=== PATIENT | female | born 1950 | race Caucasian/White ===

== ENCOUNTER 2016-09-22 12:35 | Emergency (ER) | payer MEDICARE, OTHER ==
--- NOTE | 2016-09-22 13:23 | ED ---
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 She was found to be dyspneic with evidence of left lower lobe rhonchi. She did seem to respond somewhat to an updraft. Patient herself is a poor historian due to residual stroke effects. She seems 90 other complaints at this time however no chest pain. MD Complaint: shortness of breath - Related Data Home Medications Medication Instructions Recorded Confirmed Furosemide [Lasix] 40 mg PO DAILY 03/31/15 09/22/16 Hydrochlorothiazide [Hydrodiuril] 25 mg PO DAILY 09/22/16 09/22/16 Previous Rx's Medication Instructions Recorded Digoxin [Lanoxin] 250 mcg PO DAILY #30 tab 04/27/15 Metoprolol Tartrate [Lopressor] 25 mg PO BID #60 tab 04/27/15 Allergies Allergy/AdvReac Type Severity Reaction Status Date / Time No Known Allergies Allergy Verified 09/22/16 16:12 Review of Systems ROS Statement: Those systems with pertinent positive or pertinent negative responses have been documented in the HPI. ROS Other: All systems not noted in ROS Statement are negative. Past Medical History Past Medical History: Unable to Obtain, Atrial Fibrillation, Chest Pain / Angina , CVA/TIA, GERD/Reflux, Hyperlipidemia, Hypertension, Osteoarthritis (OA), Pneumonia Additional Past Medical History / Comment(s): POOR HISTORIAN. 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 History of Any Multi-Drug Resistant Organisms: None Reported Past Surgical History: Section, Tonsillectomy Additional Past Surgical History / Comment(s): X2 Past Anesthesia/Blood Transfusion Reactions: No Reported Reaction Past Psychological History: No Psychological Hx Reported Additional Psychological History / Comment(s): PT CURRENTLY LIVES AT [facility]- PT USES [facility] TO GET AROUND AND IS ABLE TO TRANSFER SELF TO [facility]. Smoking Status: Never smoker Past Alcohol Use History: None Reported Additional Past Alcohol Use History / Comment(s): SMOKED X 30 YEARS 1 PPD QUIT 2001 Past Drug Use History: None Reported - Past Family History Father Family Medical History: Unable to Obtain Mother Family Medical History: Unable to Obtain General Exam - General Exam Comments Initial Comments: This is a well-developed well-nourished awake alert female she is receive an updraft as exam proceeds. Limitations: physical limitation General appearance: alert, anxious, in distress Head exam: Present: atraumatic, normocephalic, normal inspection Eye exam: Present: normal appearance, PERRL, EOMI. Absent: scleral icterus, conjunctival injection, periorbital swelling ENT exam: Present: normal exam, mucous membranes moist Neck exam: Present: normal inspection. Absent: tenderness, meningismus, lymphadenopathy Respiratory exam: Present: wheezes, rhonchi, decreased breath sounds Cardiovascular Exam: Present: regular rate, normal rhythm, normal heart sounds. Absent: systolic murmur, diastolic murmur, rubs, gallop, clicks GI/Abdominal exam: Present: soft, normal bowel sounds. Absent: distended, tenderness, guarding, rebound, rigid Extremities exam: Present: normal capillary refill, pedal edema. Absent: full ROM Back exam: Present: normal inspection Neurological exam: Present: alert, oriented X3, motor sensory deficit Psychiatric exam: Present: anxious Skin exam: Present: warm, dry, intact, normal color. Absent: rash Course Vital Signs 09/22/16 13:25 Temperature 96.9 F L Pulse Rate 100 Respiratory 17 Rate Blood Pressure 96/62 O2 Sat by Pulse 100 Oximetry Medical Decision Making - Medical Decision Making The patient did require repeat updraft she still has some dyspnea. He original intention was to admit the patient I did discuss the case with Dr. Weinstein. Dr. Verdugo as that did come to the emergency department to evaluate the patient at this time she appears to be in satisfactory condition for discharge so she will be discharged with prescriptions as per Dr. Verdugo - Lab Data Result diagrams: 09/22/16 13:20 09/22/16 13:20 Lab Results 09/22/16 09/22/16 09/22/16 Range/Units 13:20 13:20 13:20 WBC 7.2 (3.8-10.6) k/uL RBC 4.54 (3.80-5.40) m/uL Hgb 14.6 (11.4-16.0) gm/dL Hct 44.3 (34.0-46.0) % MCV 97.7 (80.0-100.0) fL MCH 32.1 (25.0-35.0) pg MCHC 32.8 (31.0-37.0) g/dL RDW 13.2 (11.5-15.5) % Plt Count 171 (150-450) k/uL Neutrophils % 72 % Lymphocytes % 20 % Monocytes % 4 % Eosinophils % 1 % Basophils % 0 % Neutrophils # 5.2 (1.3-7.7) k/uL Lymphocytes # 1.5 (1.0-4.8) k/uL Monocytes # 0.3 (0-1.0) k/uL Eosinophils # 0.1 (0-0.7) k/uL Basophils # 0.0 (0-0.2) k/uL PT (9.0-12.0) sec INR (<1.1) APTT (22.0-30.0) sec Sodium 142 (137-145) mmol/L Potassium 4.3 (3.5-5.1) mmol/L Chloride 105 (98-107) mmol/L Carbon Dioxide 28 (22-30) mmol/L Anion Gap 9 mmol/L BUN 24 H (7-17) mg/dL Creatinine 0.77 (0.52-1.04) mg/dL Est GFR (MDRD) Af Amer >60 (>60 ml/min/1.73 sqM) Est GFR (MDRD) Non-Af >60 (>60 ml/min/1.73 sqM) Glucose 170 H (74-99) mg/dL Calcium 9.6 (8.4-10.2) mg/dL Magnesium 2.0 (1.6-2.3) mg/dL Total Bilirubin 0.9 (0.2-1.3) mg/dL AST 30 (14-36) U/L ALT 40 (9-52) U/L Alkaline Phosphatase 87 (38-126) U/L Total Creatine Kinase 60 (30-135) U/L CK-MB (CK-2) 1.8 (0.0-2.4) ng/mL CK-MB (CK-2) Rel Index 3.0 Troponin I <0.012 (0.000-0.034) ng/mL NT-Pro-B Natriuret Pep pg/mL Total Protein 7.3 (6.3-8.2) g/dL Albumin 4.1 (3.5-5.0) g/dL 09/22/16 09/22/16 Range/Units 13:20 13:20 WBC (3.8-10.6) k/uL RBC (3.80-5.40) m/uL Hgb (11.4-16.0) gm/dL Hct (34.0-46.0) % MCV (80.0-100.0) fL MCH (25.0-35.0) pg MCHC (31.0-37.0) g/dL RDW (11.5-15.5) % Plt Count (150-450) k/uL Neutrophils % % Lymphocytes % % Monocytes % % Eosinophils % % Basophils % % Neutrophils # (1.3-7.7) k/uL Lymphocytes # (1.0-4.8) k/uL Monocytes # (0-1.0) k/uL Eosinophils # (0-0.7) k/uL Basophils # (0-0.2) k/uL PT 11.4 (9.0-12.0) sec INR 1.1 (<1.1) APTT 24.3 (22.0-30.0) sec Sodium (137-145) mmol/L Potassium (3.5-5.1) mmol/L Chloride (98-107) mmol/L Carbon Dioxide (22-30) mmol/L Anion Gap mmol/L BUN (7-17) mg/dL Creatinine (0.52-1.04) mg/dL Est GFR (MDRD) Af Amer (>60 ml/min/1.73 sqM) Est GFR (MDRD) Non-Af (>60 ml/min/1.73 sqM) Glucose (74-99) mg/dL Calcium (8.4-10.2) mg/dL Magnesium (1.6-2.3) mg/dL Total Bilirubin (0.2-1.3) mg/dL AST (14-36) U/L ALT (9-52) U/L Alkaline Phosphatase (38-126) U/L Total Creatine Kinase (30-135) U/L CK-MB (CK-2) (0.0-2.4) ng/mL CK-MB (CK-2) Rel Index Troponin I (0.000-0.034) ng/mL NT-Pro-B Natriuret Pep 1370 pg/mL Total Protein (6.3-8.2) g/dL Albumin (3.5-5.0) g/dL - EKG Data -: EKG Interpreted by Nc EKG shows normal: sinus rhythm (EKG shows a sinus rhythm with short OH interval with her rate was 103 OH interval 86 QRS of 100 mL at 290/379 evidence of incomplete right bundle-branch block nonspecific ST configuration.) - Radiology Data Radiology results: report reviewed (I did review the imaging and reports. No definite acute findings), image reviewed Disposition Clinical Impression: Acute bronchospasm, Dehydration Disposition: HOME SELF-CARE Condition: Good Instructions: Bronchospasm (ED), Dehydration (ED) Referrals: uD Lancaster MD [Primary Care Provider] - 1-2 days
[2016-09-22 13:44] LABS: Basophils % (A) 0 %; CHCM 32.9; Eosinophils # (A) 0.1 k/uL (0-0.7); Eosinophils % (A) 1 %; HCT 44.3 % (34.0-46.0); HDW 2.79; HGB 14.6 gm/dL (11.4-16.0); Luc # (Auto) 0.15; Luc % (Auto) 2; Lymphocytes # (A) 1.5 k/uL (1.0-4.8); Lymphocytes % (A) 20 %; MCH 32.1 pg (25.0-35.0); MCHC 32.8 g/dL (31.0-37.0); MCV 97.7 fL (80.0-100.0); Monocytes # (A) 0.3 k/uL (0-1.0); Monocytes % (A) 4 %; Neutrophils # (A) 5.2 k/uL (1.3-7.7); Neutrophils % (A) 72 %; RBC 4.54 m/uL (3.80-5.40); RDW 13.2 % (11.5-15.5); WBC 7.2 k/uL (3.8-10.6); WBC (Perox) 7.12
[2016-09-22 13:55] LABS: INR 1.1 (<1.1); Partial Thromboplastin Time 24.3 sec (22.0-30.0); Prothrombin Time 11.4 sec (9.0-12.0)
[2016-09-22 14:01] LABS: ALT 40 U/L (9-52); AST 30 U/L (14-36); Alkaline Phosphatase 87 U/L (38-126); Anion Gap 9 mmol/L; Blood Urea Nitrogen 24 mg/dL (7-17); Calcium 9.6 mg/dL (8.4-10.2); Carbon Dioxide 28 mmol/L (22-30); Chloride 105 mmol/L (98-107); Creatine Kinase 60 U/L (30-135); Glucose 170 mg/dL (74-99); Non-African American GFR(MDRD) >60 (>60 ml/min/1.73 sqM); Potassium 4.3 mmol/L (3.5-5.1); Sodium 142 mmol/L (137-145); Total Bilirubin 0.9 mg/dL (0.2-1.3); Total Protein 7.3 g/dL (6.3-8.2)
--- NOTE | 2016-09-22 14:13 | XR ---
EXAMINATION TYPE: XR chest 2V DATE OF EXAM: 09/22/2016 COMPARISON: July 27, 2015 HISTORY: Shortness of breath TECHNIQUE: Frontal and lateral views of the chest are obtained. FINDINGS: Scattered senescent parenchymal changes noted. Hyperinflation compatible with COPD. No evidence for infiltrate. No evidence for atelectasis. There is cardiomegaly with chronic pulmonary venous congestion. No evidence for overt failure. Mediastinal structures are stable and grossly unremarkable. No evidence for hilar prominence. Degenerative changes dorsal spine. IMPRESSION: 1. There is cardiomegaly with chronic pulmonary venous congestion. No evidence for overt failure.
[2016-09-22 14:15] LABS: Creatine Kinase MB 1.8 ng/mL (0.0-2.4); Troponin I <0.012 ng/mL (0.000-0.034)
[2016-09-22] MEDS ORDERED: SODIUM CHLORIDE 0.9% 500 ML IV STA (15:00)
[2016-09-22 16:58] VITALS: BP 93/53; PULSE 102; RESP 18; TEMP 97.4
--- NOTE | 2016-09-22 21:15 | HP ---
H&P AND DISCHARGE SUMMARY (ER CONSULT) DATE OF ADMISSION: Patient is a very pleasant 66-year-old female who came in with complaints of COPD and bronchospasm. Patient was given breathing treatments. When I evaluated the patient, she is saturating well at 100%. I will ambulate the patient. If patient is saturating okay, patient can be discharged from my perspective. Patient does have congestive heart failure history. Patient was complaining of some minimal cough. Patient was given breathing treatments with significant improvement in her symptoms. I will go ahead and give her Symbicort, albuterol, systemic steroids, and patient can follow up with Dr. Du Lancaster as an outpatient. Patient does have a history of CHF, ejection fraction of 35%. Patient does have some pulmonary edema, which does not appear to be increased compared to the previous chest x-rays. No evidence of overt congestive heart failure symptoms. Patient is on Lasix, which she can continue. Patient is on a high dose of digoxin. Digoxin levels need to be obtained as an outpatient. Patient's BNP is 13,078; it was 2500 during her last hospitalization. ROS: All other systems were reviewed and were negative. Home medications include: 1. Lasix. 2. Hydrochlorothiazide. 3. Digoxin. 4. Metoprolol. Past medical history is significant for: 1. Congestive heart failure, ejection fraction of around 35%. 2. Atrial fibrillation. 3. Gastroesophageal reflux disease. 4. Hyperlipidemia. 5. Hypertension. 6. Osteoarthritis. 7. Pneumonia in the past. 8. section. 9. Tonsillectomy. 10. CVA in the past with some residual weakness. SOCIAL HISTORY: Used to smoke 1 pack per day; quit smoking in 2001. Denied any alcohol abuse or any drug abuse. FAMILY HISTORY: Not available at this point of time. PHYSICAL EXAMINATION: VITAL SIGNS: Temperature 96.9, pulse of 100, respiratory rate of 17, blood pressure 96/62. Saturating at 100% on 2 L of oxygen by nasal cannula. GENERAL: The patient is alert and oriented x3, not in any acute distress. Well developed, well nourished. HEENT: Pupils are round and equally reacting to light. EOMI. No scleral icterus. No conjunctival pallor. Normocephalic, atraumatic. No pharyngeal erythema. No thyromegaly. CARDIOVASCULAR: S1 and S2 present. No murmurs, rubs, or gallops. PULMONARY: Chest is clear to auscultation, no wheezing or crackles. ABDOMEN: Soft, nontender, nondistended, normoactive bowel sounds. No palpable organomegaly. MUSCULOSKELETAL: No joint swelling or deformity. EXTREMITIES: No cyanosis, clubbing, or pedal edema. NEUROLOGICAL: Gross neurological examination did not reveal any focal deficits. SKIN: No rashes. LABORATORY DATA: CBC, CMP are essentially within normal limits. Chest x-ray did not show any pneumonic process. ASSESSMENT AND PLAN: 1. Shortness of breath, probably related to chronic obstructive pulmonary disease exacerbation, improved at this point of time. Patient is saturating well. Patient in my opinion can be discharged and will not need any hospitalization. 2. Atrial fibrillation. Patient is at present rate-controlled. 3. Hypertension. 4. Congestive heart failure with chronic systolic dysfunction. I do not believe patient is in exacerbation at this point of time. Patient does not have any JVD or S3 or lower limb swelling. Patient has a history of DVT in the past, history of cerebrovascular accident with some residual weakness. 5. Moderate pulmonary hypertension with moderate to severe tricuspid regurgitation. Patient will follow up with PCP Dr. Du Lancaster in 3 to 7 days. Discharge medications as mentioned above. Patient in my opinion can be discharged. This dictation is both H&P and discharge summary. Consider this as an ER consult. JANNY
== END 2016-09-22 16:58 | disposition home or self-care (01) ==
LOC: EC 12:35
DX: J98.01 Acute bronchospasm (principal); E86.0 Dehydration; I48.91 Unspecified atrial fibrillation; I10 Essential (primary) hypertension; Z86.73 Personal history of transient ischemic attack (TIA), and cerebral infarction without residual deficits; Z79.899 Other long term (current) drug therapy
CPT/HCPCS: 36415; 71020; 80053; 82550; 82553; 83735; 83880; 84484; 85025; 85610; 85730; 93005; 96360; 99285

== ENCOUNTER → 2017-01-10 | Outpatient (CLI) | payer MEDICARE ==
--- NOTE | 2017-01-10 10:53 | XR ---
EXAMINATION TYPE: XR chest 2V DATE OF EXAM: 01/10/2017 COMPARISON: Chest x-ray September 22, 2016 HISTORY: CHF per order. TECHNIQUE: Frontal and lateral views of the chest are obtained. FINDINGS: There is no focal air space opacity, pleural effusion, or pneumothorax seen. The cardiac silhouette size remains enlarged. No significant new central vascular congestion is present. The oss eous structures are intact. IMPRESSION: Cardiomegaly without acute pulmonary process. No significant change from prior.
== END | disposition home or self-care (01) ==
LOC: RADXRMAIN 10:10
PROVIDERS: ATTEND Physician Assistant
DX: I51.7 Cardiomegaly (principal); I50.32 Chronic diastolic (congestive) heart failure
CPT/HCPCS: 71020

== ENCOUNTER → 2017-01-22 | Outpatient (CLI) | payer MEDICARE ==
--- NOTE | 2017-01-23 10:14 | ECHOF ---
Referral Reason:I50.32 Diastolic heart failure MEASUREMENTS -------- HEIGHT: 157.5 cm WEIGHT: 85.7 kg BP: 144/82 RVIDd: 3.2 cm (< 3.3) IVSd: 1.2 cm (0.6 - 1.1) LVIDd: 5.3 cm (3.9 - 5.3) LVPWd: 1.4 cm (0.6 - 1.1) IVSs: 1.7 cm LVIDs: 4.2 cm LVPWs: 2.1 cm LA Diam: 4.3 cm (2.7 - 3.8) LAESV Index (A-L): 45.97 ml/m Ao Diam: 3.3 cm (2.0 - 3.7) AV Cusp: 2.0 cm (1.5 - 2.6) MV EXCURSION: 16.963 mm (> 18.000) MV EF SLOPE: 7 mm/s (70 - 150) EPSS: 1.3 cm MV E Wei: 1.60 m/s MV DecT: 398 ms MV A Wei: 1.39 m/s MV E/A Ratio: 1.15 RAP: 15.00 mmHg RVSP: 48.38 mmHg FINDINGS -------- Sinus rhythm. This was a technically adequate study. The left ventricular size is normal. There is moderate concentric left ventricular hypertrophy. Overall left ventricular systolic function is moderately impaired with, an EF between 35 - 40 %. The right ventricle is normal in size. LA is severely dilated >40 ml/m2 The right atrium was not well visualized. There is mild aortic valve sclerosis. The mitral valve leaflets are moderate to severely thickened. Moderate mitral annular calcification present. There is trace to mild mitral regurgitation. The peak and mean MV gradients are 12.65mmHg 7.46mmHg as measured by doppler. [id number] mitral stenosis. Moderate to severe tricuspid regurgitation present. There is moderate pulmonary hypertension. The right ventricular systolic pressure, as measured by Doppler, is 48.38mmHg. Trace/mild (physiologic) pulmonic regurgitation. The aortic root size is normal. The inferior vena cava is dilated with no significant inspiratory collapse which is consistent estimated right atrial pressure of >15 mmHg. There is no pericardial effusion. CONCLUSIONS -------- 1. Sinus rhythm. 2. The mitral valve leaflets are moderate to severely thickened. 3. Moderate mitral annular calcification present. 4. There is trace to mild mitral regurgitation. 5. The peak and mean MV gradients are 12.65mmHg 7.46mmHg as measured by doppler. 6. [id number] mitral stenosis. 7. Moderate to severe tricuspid regurgitation present. 8. There is moderate pulmonary hypertension. 9. The right ventricular systolic pressure, as measured by Doppler, is 48.38mmHg. 10. Trace/mild (physiologic) pulmonic regurgitation. 11. The aortic root size is normal. 12. This was a technically adequate study. 13. The inferior vena cava is dilated with no significant inspiratory collapse which is consistent estimated right atrial pressure of >20 mmHg. 14. There is no pericardial effusion. 15. The left ventricular size is normal. 16. There is moderate concentric left ventricular hypertrophy. 17. Overall left ventricular systolic function is moderately impaired with, an EF between 35 - 40 %. 18. The right ventricle is normal in size. 19. LA is severely dilated >40 ml/m2 20. The right atrium was not well visualized. 21. There is mild aortic valve sclerosis. CLIENT HR MANAGER: Elen Jenkins RDCS
== END | disposition home or self-care (01) ==
LOC: RADECHMAIN 13:11
PROVIDERS: ATTEND Family Medicine
DX: I08.3 Combined rheumatic disorders of mitral, aortic and tricuspid valves (principal); I27.20 Pulmonary hypertension, unspecified
CPT/HCPCS: 93306

== ENCOUNTER 2017-05-01 04:40 | Inpatient (IN) | payer MEDICARE ==
[2017-05-01] MEDS ORDERED: MORPHINE SULFATE 5 MG/ML SYRINGE IV STA (05:12)
[2017-05-01 05:27] LABS: Basophils % (A) 0 %; Eosinophils % (A) 0 %; HCT 50.8 % (34.0-46.0); HGB 16.5 gm/dL (11.4-16.0); Lymphocytes # (A) 0.9 k/uL (1.0-4.8); Lymphocytes % (A) 7 %; MCH 31.1 pg (25.0-35.0); MCHC 32.6 g/dL (31.0-37.0); MCV 95.7 fL (80.0-100.0); Mean Platelet Volume 8.6; Monocytes # (A) 0.5 k/uL (0-1.0); Monocytes % (A) 4 %; Neutrophils % (A) 88 %; Platelet Count 263 k/uL (150-450); RBC 5.31 m/uL (3.80-5.40); RDW 14.7 % (11.5-15.5); WBC 13.6 k/uL (3.8-10.6)
[2017-05-01] MEDS ORDERED: ONDANSETRON 4 MG/2 ML VIAL IVP STA (05:37)
[2017-05-01 05:42] LABS: ALT 49 U/L (9-52); AST 44 U/L (14-36); Albumin 4.7 g/dL (3.5-5.0); Alkaline Phosphatase 108 U/L (38-126); Amylase 66 U/L (30-110); Anion Gap 14 mmol/L; Blood Urea Nitrogen 25 mg/dL (7-17); Calcium 11.1 mg/dL (8.4-10.2); Carbon Dioxide 28 mmol/L (22-30); Chloride 100 mmol/L (98-107); Glucose 164 mg/dL (74-99); Lipase 305 U/L (23-300); Potassium 4.4 mmol/L (3.5-5.1); Sodium 142 mmol/L (137-145); Total Bilirubin 1.2 mg/dL (0.2-1.3); Total Protein 8.5 g/dL (6.3-8.2)
--- NOTE | 2017-05-01 06:33 | CT ---
EXAM: CT Abdomen and Pelvis Without Intravenous Contrast CLINICAL HISTORY: Abdominal pain. Nausea and vomiting after eating pizza before bed. TECHNIQUE: Axial computed tomography images of the abdomen and pelvis without intravenous contrast. Coronal and sagittal reformatted images were created and reviewed. CTDI is 31.60 mGy and DLP is 1638.80 mGy-cm. This CT exam was performed using one or more of the following dose reduction techniques: automated exposure control, adjustment of the mA and/or kV according to patient size, and/or use of iterative reconstruction technique. COMPARISON: CT dated 07/26/2015. FINDINGS: Lower thorax: Mild cardiomegaly. No acute findings. ABDOMEN: Liver: Unremarkable on noncontrast CT. Gallbladder and bile ducts: Unremarkable. No radiopaque calculi. No biliary ductal dilation. Pancreas: Unremarkable. No ductal dilation. No adjacent inflammatory changes. Spleen: Unremarkable. No splenomegaly. Adrenals: Indeterminate left adrenal nodule measuring 2 cm, stable compared to prior CT. Unremarkable right adrenal gland. Kidneys and ureters: Probable bilateral renal cysts and right renal calcifications. No hydronephrosis or ureteral calculus. Stomach and bowel: Small umbilical hernia containing short segment of small bowel with dilation of small bowel proximal to the hernia and decompression of small bowel distal to the hernia consistent with small bowel obstruction due to hernia. No significant fluid within the hernia although suspect mild stranding. No bowel wall thickening, pneumatosis or free air. Appendix: No evidence of acute appendicitis. PELVIS: Bladder: Bladder is decompressed which limits evaluation. Reproductive: Fibroid uterus. Ovaries not seen. ABDOMEN and PELVIS: Intraperitoneal space: No free air. No significant fluid collection. Bones/joints: No acute fracture. No dislocation. Soft tissues: Small umbilical hernia as described above. Vasculature: Atherosclerotic vascular disease. No abdominal aortic aneurysm. Lymph nodes: Subcentimeter retroperitoneal lymph nodes. No enlarged lymph nodes. IMPRESSION: 1. Small umbilical hernia containing short segment of small bowel with dilation of small bowel proximal to the hernia and decompression of small bowel distal to the hernia consistent with small bowel obstruction due to hernia. No bowel wall thickening, pneumatosis or free air. No fluid within the hernia although suspect mild stranding. Correlate clinically for incarceration/strangulation. 2. Indeterminate left adrenal nodule measuring 2 cm, stable compared to prior CT. 3. Fibroid uterus. 4. Mild cardiomegaly.
[2017-05-01 06:46] LABS: Appearance,Urine Cloudy (Clear); Bacteria,Urine Many /hpf; Bilirubin,Urine 1+ (Negative); Blood,Urine Small (Negative); Color,Urine Yellow; Glucose,Urine (UA) Negative (Negative); Ketones,Urine Negative (Negative); Leukocyte Esterase,Urine Moderate (Negative); Mucus,Urine Rare /hpf; Nitrite,Urine Negative (Negative); Protein,Urine 1+ (Negative); RBC,Urine 16 /hpf (0-5); Specific Gravity,Urine 1.022 (1.001-1.035); Squamous Epithelial Cell,Urine 14 /hpf (0-4); WBC,Urine 141 /hpf (0-5)
--- NOTE | 2017-05-01 07:45 | ED ---
Abdominal Pain HPI - General Chief Complaint: Nausea/Vomiting/Diarrhea Stated Complaint: abd pain,NV Time Seen by Provider: 05/01/17 04:47 Source: patient, family, EMS Mode of arrival: EMS Limitations: language barrier (Expressive aphasia due to stroke) - History of Present Illness Initial Comments: This patient is a 67-year-old woman who presents with abdominal pain, nausea and vomiting, that started tonight. History is limited as the patient has expressive aphasia due to stroke many years ago. She does have a friend present who helps to give the history. The patient was playing cards a number of hours ago when she developed some periumbilical and left lower quadrant pain. She is not able to characterize it well on her own but when questioned she agrees it is crampy. The pain is severe. Pain is constant and she has not discovered any worsening or relieving factors. She also has had a couple of episodes of vomiting and does have nausea. She did not note any blood. Patient has not noted change in bowel movements it seems that her last bowel movement was yesterday and unremarkable. No change in urination. No flank pain. She has not noted fever. MD Complaint: abdominal pain, other (Nausea and vomiting) -: hour(s) Location: periumbilical, LLQ Radiation: none Migration to: no migration Severity: severe Quality: cramping Consistency: constant Improves With: nothing Worsens With: nothing Associated Symptoms: nausea, vomiting - Related Data Home Medications Medication Instructions Recorded Confirmed Furosemide [Lasix] 40 mg PO DAILY 03/31/15 05/01/17 Albuterol Inhaler [Ventolin Hfa 1 - 2 puff INHALATION RT-Q6H PRN 05/01/17 Inhaler] Budesonide-Formot 160-4.5 Mcg 2 puff INHALATION RT-BID 05/01/17 05/01/17 [Symbicort 160-4.5 Mcg Inhaler] Tiotropium [place] [Spiriva] 1 cap INHALATION RT-DAILY 05/01/17 05/01/17 Previous Rx's Medication Instructions Recorded Digoxin [Lanoxin] 250 mcg PO DAILY #30 tab 04/27/15 Metoprolol Tartrate [Lopressor] 25 mg PO BID #60 tab 04/27/15 Lisinopril [Zestril] 5 mg PO DAILY #30 tab 05/07/17 Omeprazole [PriLOSEC] 20 mg PO AC-BRKFST #15 cap 05/07/17 Warfarin [Coumadin] 3 mg PO DAILY@1800 #30 tab 05/07/17 traMADol HCl [Ultram] 100 mg PO QID PRN #30 tab 05/07/17 Allergies Allergy/AdvReac Type Severity Reaction Status Date / Time No Known Allergies Allergy Verified 05/01/17 07:09 Review of Systems ROS Statement: Those systems with pertinent positive or pertinent negative responses have been documented in the HPI. ROS Other: All systems not noted in ROS Statement are negative. Limitations: ROS unobtainable due to patients medical condition (Expressive aphasia) Constitutional: Denies: fever Respiratory: Denies: cough, dyspnea Cardiovascular: Denies: chest pain, edema Gastrointestinal: Reports: abdominal pain, nausea, vomiting. Denies: diarrhea, constipation, melena, hematochezia Genitourinary: Denies: dysuria, hematuria Musculoskeletal: Denies: back pain Neurological: Denies: headache Past Medical History Past Medical History: Unable to Obtain, Atrial Fibrillation, Chest Pain / Angina , CVA/TIA, GERD/Reflux, Hyperlipidemia, Hypertension, Osteoarthritis (OA), Pneumonia Additional Past Medical History / Comment(s): POOR HISTORIAN. 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 History of Any Multi-Drug Resistant Organisms: None Reported Past Surgical History: Section, Tonsillectomy Additional Past Surgical History / Comment(s): X2 Past Anesthesia/Blood Transfusion Reactions: No Reported Reaction Past Psychological History: No Psychological Hx Reported Smoking Status: Never smoker Past Alcohol Use History: None Reported Past Drug Use History: None Reported - Past Family History Father Family Medical History: Unable to Obtain Mother Family Medical History: Unable to Obtain General Exam Limitations: no limitations General appearance: alert, in no apparent distress, obese Head exam: Present: atraumatic, normocephalic Eye exam: Present: normal appearance. Absent: scleral icterus, conjunctival injection Respiratory exam: Present: normal lung sounds bilaterally. Absent: respiratory distress, wheezes, rales, rhonchi, stridor Cardiovascular Exam: Present: regular rate, irregular rhythm, normal heart sounds, other (Dorsalis pedis pulses are palpable.). Absent: systolic murmur, diastolic murmur GI/Abdominal exam: Present: tenderness, diminished bowel sounds. Absent: distended, guarding, rebound, rigid, mass, pulsatile mass, hernia Extremities exam: Present: normal inspection, normal capillary refill, pedal edema (Right lower extremity, which the patient states is chronic for her. There is also some mild duskiness of the foot that her associate says it looks actually pretty good for her.). Absent: tenderness, calf tenderness Back exam: Present: normal inspection. Absent: CVA tenderness (R), CVA tenderness (L) Neurological exam: Present: alert, motor sensory deficit (Patient has right sided hemiplegia which is chronic) Skin exam: Present: warm, dry, intact, other (Patient has some duskiness and the right foot is cool which they state is chronic. There is a palpable dorsalis pedis pulse.). Absent: rash Course Vital Signs 05/01/17 05/01/17 05/01/17 04:41 06:22 09:46 Temperature 97.6 F 98.0 F Pulse Rate 64 65 91 Respiratory 18 18 18 Rate Blood Pressure 150/70 135/82 128/78 O2 Sat by Pulse 97 98 98 Oximetry 05/01/17 05/01/17 05/01/17 11:08 12:22 12:32 Temperature 97.3 F L 97.4 F L Pulse Rate 96 89 87 Respiratory 18 18 18 Rate Blood Pressure 124/67 140/99 166/96 O2 Sat by Pulse 98 96 97 Oximetry Medical Decision Making - Medical Decision Making Patient is 67-year-old woman with pain and some tenderness on the abdominal exam. History is limited somewhat by a fascia following her stroke a number of years ago. She does have what appears to be incarcerated umbilical hernia. Case is discussed with Dr. Mulligan, who did see the patient in the emergency department. Patient admitted under Dr. Du Mccray her primary physician, and the case is discussed with him as well. - Lab Data Result diagrams: 05/06/17 07:23 05/06/17 07:23 Lab Results 05/01/17 05/01/17 05/01/17 Range/Units 04:40 04:40 04:40 WBC 13.6 H (3.8-10.6) k/uL RBC 5.31 (3.80-5.40) m/uL Hgb 16.5 H (11.4-16.0) gm/dL Hct 50.8 H (34.0-46.0) % MCV 95.7 (80.0-100.0) fL MCH 31.1 (25.0-35.0) pg MCHC 32.6 (31.0-37.0) g/dL RDW 14.7 (11.5-15.5) % Plt Count 263 (150-450) k/uL Neutrophils % 88 % Lymphocytes % 7 % Monocytes % 4 % Eosinophils % 0 % Basophils % 0 % Neutrophils # 12.0 H (1.3-7.7) k/uL Lymphocytes # 0.9 L (1.0-4.8) k/uL Monocytes # 0.5 (0-1.0) k/uL Eosinophils # 0.0 (0-0.7) k/uL Basophils # 0.0 (0-0.2) k/uL PT 17.1 H (9.0-12.0) sec INR 1.9 H (<1.2) APTT 27.7 (22.0-30.0) sec Sodium 142 (137-145) mmol/L Potassium 4.4 (3.5-5.1) mmol/L Chloride 100 (98-107) mmol/L Carbon Dioxide 28 (22-30) mmol/L Anion Gap 14 mmol/L BUN 25 H (7-17) mg/dL Creatinine 0.87 (0.52-1.04) mg/dL Est GFR (MDRD) Af Amer >60 (>60 ml/min/1.73 sqM) Est GFR (MDRD) Non-Af >60 (>60 ml/min/1.73 sqM) Glucose 164 H (74-99) mg/dL Calcium 11.1 H (8.4-10.2) mg/dL Total Bilirubin 1.2 (0.2-1.3) mg/dL AST 44 H (14-36) U/L ALT 49 (9-52) U/L Alkaline Phosphatase 108 (38-126) U/L Total Protein 8.5 H (6.3-8.2) g/dL Albumin 4.7 (3.5-5.0) g/dL Amylase 66 (30-110) U/L Lipase 305 H (23-300) U/L Urine Color Urine Appearance (Clear) Urine pH (5.0-8.0) Ur Specific [place] (1.001-1.035) Urine Protein (Negative) Urine Glucose (UA) (Negative) Urine Ketones (Negative) Urine Blood (Negative) Urine Nitrite (Negative) Urine Bilirubin (Negative) Urine Urobilinogen (<2.0) mg/dL Ur Leukocyte Esterase (Negative) Urine RBC (0-5) /hpf Urine WBC (0-5) /hpf Ur Squamous Epith Cells (0-4) /hpf Urine Bacteria (None) /hpf Urine Mucus (None) /hpf 05/01/17 Range/Units 06:20 WBC (3.8-10.6) k/uL RBC (3.80-5.40) m/uL Hgb (11.4-16.0) gm/dL Hct (34.0-46.0) % MCV (80.0-100.0) fL MCH (25.0-35.0) pg MCHC (31.0-37.0) g/dL RDW (11.5-15.5) % Plt Count (150-450) k/uL Neutrophils % % Lymphocytes % % Monocytes % % Eosinophils % % Basophils % % Neutrophils # (1.3-7.7) k/uL Lymphocytes # (1.0-4.8) k/uL Monocytes # (0-1.0) k/uL Eosinophils # (0-0.7) k/uL Basophils # (0-0.2) k/uL PT (9.0-12.0) sec INR (<1.2) APTT (22.0-30.0) sec Sodium (137-145) mmol/L Potassium (3.5-5.1) mmol/L Chloride (98-107) mmol/L Carbon Dioxide (22-30) mmol/L Anion Gap mmol/L BUN (7-17) mg/dL Creatinine (0.52-1.04) mg/dL Est GFR (MDRD) Af Amer (>60 ml/min/1.73 sqM) Est GFR (MDRD) Non-Af (>60 ml/min/1.73 sqM) Glucose (74-99) mg/dL Calcium (8.4-10.2) mg/dL Total Bilirubin (0.2-1.3) mg/dL AST (14-36) U/L ALT (9-52) U/L Alkaline Phosphatase (38-126) U/L Total Protein (6.3-8.2) g/dL Albumin (3.5-5.0) g/dL Amylase (30-110) U/L Lipase (23-300) U/L Urine Color Yellow Urine Appearance Cloudy H (Clear) Urine pH 5.0 (5.0-8.0) Ur Specific [place] 1.022 (1.001-1.035) Urine Protein 1+ H (Negative) Urine Glucose (UA) Negative (Negative) Urine Ketones Negative (Negative) Urine Blood Small H (Negative) Urine Nitrite Negative (Negative) Urine Bilirubin 1+ H (Negative) Urine Urobilinogen 2.0 (<2.0) mg/dL Ur Leukocyte Esterase Moderate H (Negative) Urine RBC 16 H (0-5) /hpf Urine WBC 141 H (0-5) /hpf Ur Squamous Epith Cells 14 H (0-4) /hpf Urine Bacteria Many H (None) /hpf Urine Mucus Rare H (None) /hpf Disposition Clinical Impression: Umbilical hernia with obstruction but no gangrene, Abdominal pain Disposition: ADMITTED IP TO THIS [facility] Condition: Serious
[2017-05-01] MEDS ORDERED: ONDANSETRON 4 MG/2 ML VIAL IVP PRN ×2 (08:05→17:27)
[2017-05-01] MEDS ORDERED: NALOXONE 0.4 MG/ML 1 ML VIAL IV PRN (08:05)
[2017-05-01] MEDS ORDERED: PHYTONADIONE 1 MG in SODIUM CHLORIDE 0.9% 50 ML IVPB STA (08:09)
[2017-05-01 08:11] LABS: INR 1.9 (<1.2); Partial Thromboplastin Time 27.7 sec (22.0-30.0); Prothrombin Time 17.1 sec (9.0-12.0)
[2017-05-01] MEDS ORDERED: PIPERACILLIN-TAZOBACTAM 3.375 GM in DEXTROSE/WATER 1 50ML.BAG IVPB STA (08:54)
--- NOTE | 2017-05-01 09:08 | P.GSCN ---
History of Present Illness Consult date: 05/01/17 Reason for Consult: Incarcerated umbilical hernia Requesting physician: Marcos Gonsalez History of present illness: 67 years old female presented with one-day history of periumbilical abdominal pain, severe associated with multiple episodes of nausea and vomiting. Patient has history of stroke with significant residual weakness of the right side of the body and expressive aphasia. She has restricted mobility and uses a power chair History obtained from review of charts and speaking to patient's neighbor. Denies any fever, chills or rigors. Last bowel movement was yesterday. She is on again and INR is 1.9 Review of Systems As stated in history of present illness. Limited history secondary to express aphasia Past Medical History Past Medical History: Unable to Obtain, Atrial Fibrillation, Chest Pain / Angina , CVA/TIA, GERD/Reflux, Hyperlipidemia, Hypertension, Osteoarthritis (OA), Pneumonia Additional Past Medical History / Comment(s): POOR HISTORIAN. 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 History of Any Multi-Drug Resistant Organisms: None Reported Past Surgical History: Section, Tonsillectomy Additional Past Surgical History / Comment(s): X2 Past Anesthesia/Blood Transfusion Reactions: No Reported Reaction Past Psychological History: No Psychological Hx Reported Smoking Status: Never smoker Past Alcohol Use History: None Reported Past Drug Use History: None Reported - Past Family History Father Family Medical History: Unable to Obtain Mother Family Medical History: Unable to Obtain Medications and Allergies Home Medications Medication Instructions Recorded Confirmed Type Furosemide [Lasix] 40 mg PO DAILY 03/31/15 05/01/17 History Digoxin [Lanoxin] 250 mcg PO DAILY #30 tab 04/27/15 05/01/17 Rx Metoprolol Tartrate [Lopressor] 25 mg PO BID #60 tab 04/27/15 05/01/17 Rx Albuterol Inhaler [Ventolin Hfa 1 - 2 puff INHALATION RT-Q6H PRN 05/01/17 History Inhaler] Budesonide-Formot 160-4.5 Mcg 2 puff INHALATION RT-BID 05/01/17 05/01/17 History [Symbicort 160-4.5 Mcg Inhaler] Tiotropium [place] [Spiriva] 1 cap INHALATION RT-DAILY 05/01/17 05/01/17 History Warfarin [Coumadin] 2.5 mg PO MOWEFR 05/01/17 05/01/17 History Warfarin [Coumadin] 5 mg PO SUTUTHSA 05/01/17 05/01/17 History Allergies Allergy/AdvReac Type Severity Reaction Status Date / Time No Known Allergies Allergy Verified 05/01/17 07:09 Surgical - Exam Vital Signs Temp Pulse Resp BP Pulse Ox 97.6 F 64 18 150/70 97 05/01/17 04:41 05/01/17 04:41 05/01/17 04:41 05/01/17 04:41 05/01/17 04:41 General: Patient is alert and cooperative with exam. She is not in acute distress. Obese built HEENT: No pallor, no icterus, Chest: Bilateral equal breath sounds present. No wheezes, no crackles. Cardiovascular: Regular rate and rhythm. Abdomen: Incarcerated umbilical hernia which is not reducible with overlying skin changes. No skin cellulitis Integumentary: Right lower extremity chronic venous dermatitis. No active ulcers or discharge. Neurologic: Significant weakness in the right side of the body and expressive aphasia Results - Labs 05/01/17 04:40 05/01/17 04:40 Abnormal Lab Results - Last 24 Hours (Table) 05/01/17 05/01/17 05/01/17 Range/Units 04:40 04:40 04:40 WBC 13.6 H (3.8-10.6) k/uL Hgb 16.5 H (11.4-16.0) gm/dL Hct 50.8 H (34.0-46.0) % Neutrophils # 12.0 H (1.3-7.7) k/uL Lymphocytes # 0.9 L (1.0-4.8) k/uL PT 17.1 H (9.0-12.0) sec INR 1.9 H (<1.2) BUN 25 H (7-17) mg/dL Glucose 164 H (74-99) mg/dL Calcium 11.1 H (8.4-10.2) mg/dL AST 44 H (14-36) U/L Total Protein 8.5 H (6.3-8.2) g/dL Lipase 305 H (23-300) U/L Urine Appearance (Clear) Urine Protein (Negative) Urine Blood (Negative) Urine Bilirubin (Negative) Ur Leukocyte Esterase (Negative) Urine RBC (0-5) /hpf Urine WBC (0-5) /hpf Ur Squamous Epith Cells (0-4) /hpf Urine Bacteria (None) /hpf Urine Mucus (None) /hpf 05/01/17 Range/Units 06:20 WBC (3.8-10.6) k/uL Hgb (11.4-16.0) gm/dL Hct (34.0-46.0) % Neutrophils # (1.3-7.7) k/uL Lymphocytes # (1.0-4.8) k/uL PT (9.0-12.0) sec INR (<1.2) BUN (7-17) mg/dL Glucose (74-99) mg/dL Calcium (8.4-10.2) mg/dL AST (14-36) U/L Total Protein (6.3-8.2) g/dL Lipase (23-300) U/L Urine Appearance Cloudy H (Clear) Urine Protein 1+ H (Negative) Urine Blood Small H (Negative) Urine Bilirubin 1+ H (Negative) Ur Leukocyte Esterase Moderate H (Negative) Urine RBC 16 H (0-5) /hpf Urine WBC 141 H (0-5) /hpf Ur Squamous Epith Cells 14 H (0-4) /hpf Urine Bacteria Many H (None) /hpf Urine Mucus Rare H (None) /hpf Diabetes panel 05/01/17 Range/Units 04:40 Sodium 142 (137-145) mmol/L Potassium 4.4 (3.5-5.1) mmol/L Chloride 100 (98-107) mmol/L Carbon Dioxide 28 (22-30) mmol/L BUN 25 H (7-17) mg/dL Creatinine 0.87 (0.52-1.04) mg/dL Glucose 164 H (74-99) mg/dL Calcium 11.1 H (8.4-10.2) mg/dL AST 44 H (14-36) U/L ALT 49 (9-52) U/L Alkaline Phosphatase 108 (38-126) U/L Total Protein 8.5 H (6.3-8.2) g/dL Albumin 4.7 (3.5-5.0) g/dL Calcium panel 05/01/17 Range/Units 04:40 Calcium 11.1 H (8.4-10.2) mg/dL Albumin 4.7 (3.5-5.0) g/dL Pituitary panel 05/01/17 Range/Units 04:40 Sodium 142 (137-145) mmol/L Potassium 4.4 (3.5-5.1) mmol/L Chloride 100 (98-107) mmol/L Carbon Dioxide 28 (22-30) mmol/L BUN 25 H (7-17) mg/dL Creatinine 0.87 (0.52-1.04) mg/dL Glucose 164 H (74-99) mg/dL Calcium 11.1 H (8.4-10.2) mg/dL Adrenal panel 05/01/17 Range/Units 04:40 Sodium 142 (137-145) mmol/L Potassium 4.4 (3.5-5.1) mmol/L Chloride 100 (98-107) mmol/L Carbon Dioxide 28 (22-30) mmol/L BUN 25 H (7-17) mg/dL Creatinine 0.87 (0.52-1.04) mg/dL Glucose 164 H (74-99) mg/dL Calcium 11.1 H (8.4-10.2) mg/dL Total Bilirubin 1.2 (0.2-1.3) mg/dL AST 44 H (14-36) U/L ALT 49 (9-52) U/L Alkaline Phosphatase 108 (38-126) U/L Total Protein 8.5 H (6.3-8.2) g/dL Albumin 4.7 (3.5-5.0) g/dL - Imaging CT scan - abdomen: image reviewed (Incarcerated umbilical hernia containing bowel loop which is causing small bowel obstruction) Assessment and Plan (1) Umbilical hernia with obstruction but no gangrene Current Visit: Yes Status: Acute Code(s): K42.0 - UMBILICAL HERNIA WITH OBSTRUCTION, WITHOUT GANGRENE SNOMED Code(s): 209366999 (2) Atrial fibrillation with rapid ventricular response Current Visit: No Status: Acute Code(s): I48.91 - UNSPECIFIED ATRIAL FIBRILLATION SNOMED Code(s): 006014267273794 (3) HTN (hypertension) Current Visit: No Status: Acute Code(s): I10 - ESSENTIAL (PRIMARY) HYPERTENSION SNOMED Code(s): 23001980 (4) History of CVA (cerebrovascular accident) Current Visit: No Status: Acute Code(s): Z86.73 - PRSNL HX OF TIA (TIA), AND CEREB INFRC W/O RESID DEFICITS SNOMED Code(s): 400361204 (5) Obesity (BMI 30-39.9) Current Visit: Yes Status: Acute Code(s): E66.9 - OBESITY, UNSPECIFIED SNOMED Code(s): 786746287 Plan: 1. Incarcerated umbilical hernia containing a loop of bowel with bowel obstruction 2. Plan for diagnostic laparoscopy, umbilical hernia repair with possible mesh. If small bowel viability is compromise, may need a bowel resection with primary anastomosis and possible ostomy. In case of bowel resection, no mesh would be used and primary hernia repair would be performed 3. Discussed treatment plan with patient and she elected to undergo laparoscopic umbilical hernia repair with mesh possible open, possible bowel resection and all indicated procedures 4. Patient's INR is 1.9. Vitamin K 10 mg given in ED. Since this is an emergency surgery, transfuse 1 unit of FFP to reverse INR 5. Patient has significant comorbid conditions including history of stroke,A. fib with RVR, hypertension and history of congestive heart failure 6. Patient examined in ED. Images were reviewed. 7. 12-lead EKG. 8. Admission under medical service for management of comorbid conditions
[2017-05-01] MEDS: PANTOPRAZOLE 40 MG/10 ML VIAL IV SCH (09:42)
[2017-05-01] MEDS: SODIUM CHLORIDE 0.9% 1,000 ML IV SCH ×3 (09:42→20:47)
--- NOTE | 2017-05-01 10:41 | ECHOF ---
Referral Reason:preop cardiac assessment MEASUREMENTS -------- HEIGHT: 157.5 cm WEIGHT: 88.5 kg BP: RVIDd: 3.4 cm (< 3.3) IVSd: 1.3 cm (0.6 - 1.1) LVIDd: 5.2 cm (3.9 - 5.3) LVPWd: 1.2 cm (0.6 - 1.1) IVSs: 1.6 cm LVIDs: 4.1 cm LVPWs: 1.5 cm LA Diam: 4.6 cm (2.7 - 3.8) LAESV Index (A-L): 69.58 ml/m Ao Diam: 2.9 cm (2.0 - 3.7) AV Cusp: 1.5 cm (1.5 - 2.6) LA Diam: 4.8 cm (2.7 - 3.8) MV EXCURSION: 19.089 mm (> 18.000) MV EF SLOPE: 21 mm/s (70 - 150) EPSS: 0.9 cm MV E Wei: 1.83 m/s MV DecT: 532 ms MV A Wei: 0.71 m/s MV E/A Ratio: 2.58 RAP: 5.00 mmHg RVSP: 48.68 mmHg FINDINGS -------- Sinus rhythm. This was a technically adequate study. The left ventricular size is normal. There is mild concentric left ventricular hypertrophy. Overa ll left ventricular systolic function is mildly impaired with, an EF between 45 - 50 %. The right ventricle is moderately enlarged. LA is severely dilated >40 ml/m2 The right atrial size is normal. The mitral valve leaflets are severely thickened. Moderate mitral regurgitation is present. The peak and mean MV gradients are 23.74mmHg 10.58mmHg as measured by doppler. Severe mitral stenosis. Severe tricuspid regurgitation present. There is moderate pulmonary hypertension. The right ventr icular systolic pressure, as measured by Doppler, is 48.68mmHg. There is no pulmonic regurgitation present. The aortic root size is normal. There is no pericardial effusion. CONCLUSIONS -------- 1. The left ventricular size is normal. 2. There is mild concentric left ventricular hypertrophy. 3. Overall left ventricular systolic function is mildly impaired with, an EF between 45 - 50 %. 4. The right ventricle is moderately enlarged. 5. LA is severely dilated >40 ml/m2 6. The mitral valve leaflets are severely thickened. 7. Moderate mitral regurgitation is present. 8. The peak and mean MV gradients are 23.74mmHg 10.58mmHg as measured by doppler. 9. Severe mitral stenosis. 10. Severe tricuspid regurgitation present. 11. There is moderate pulmonary hypertension. 12. The right ventricular systolic pressure, as measured by Doppler, is 48.68mmHg. DANCE THERAPIST: Mag Celeste RDCS
--- NOTE | 2017-05-01 13:14 | P.HPIM ---
History of Present Illness 67-year-old female presented to the emergency room with complaints of of periumbilical or abdominal pain associated with multiple episodes of nausea and vomiting. Patient has a history of a stroke with significant right-sided weakness expressive dysphasia contracture right hand. Patient is scheduled for emergency abdominal laparoscopic surgery with possible mesh may need bowel resection Review of Systems Gastrointestinal: Reports abdominal pain, Reports nausea, Reports vomiting Past Medical History Past Medical History: Unable to Obtain, Atrial Fibrillation, Chest Pain / Angina , COPD, CVA/TIA, GERD/Reflux, Hyperlipidemia, Hypertension, Osteoarthritis (OA) , Pneumonia, Renal Disease Additional Past Medical History / Comment(s): CVA ub 2001 with R sided weakness of arm/leg and dysphasia, Afib with RVR, tircuspid regurgitation, head injury, DJD, occasional back pain, CRD, UTIs, kidney infections, anemia, bronchitis. History of Any Multi-Drug Resistant Organisms: None Reported Past Surgical History: Section, Orthopedic Surgery, Tonsillectomy Additional Past Surgical History / Comment(s): X2, L tibial IM nailing , recent teeth extractions in preparation for dentures. Past Anesthesia/Blood Transfusion Reactions: No Reported Reaction Smoking Status: Former smoker - Past Family History Father Family Medical History: No Reported History Additional Family Medical History / Comment(s): FATHER WAS HEALTHY AND LIVED TO BE 96YRS OLD. Mother Family Medical History: Cancer Additional Family Medical History / Comment(s): MOTHER HAD BREAST CANCER. Medications and Allergies Home Medications Medication Instructions Recorded Confirmed Type Furosemide [Lasix] 40 mg PO DAILY 03/31/15 05/01/17 History Digoxin [Lanoxin] 250 mcg PO DAILY #30 tab 04/27/15 05/01/17 Rx Metoprolol Tartrate [Lopressor] 25 mg PO BID #60 tab 04/27/15 05/01/17 Rx Albuterol Inhaler [Ventolin Hfa 1 - 2 puff INHALATION RT-Q6H PRN 05/01/17 History Inhaler] Budesonide-Formot 160-4.5 Mcg 2 puff INHALATION RT-BID 05/01/17 05/01/17 History [Symbicort 160-4.5 Mcg Inhaler] Tiotropium [place] [Spiriva] 1 cap INHALATION RT-DAILY 05/01/17 05/01/17 History Warfarin [Coumadin] 2.5 mg PO MOWEFR 05/01/17 05/01/17 History Warfarin [Coumadin] 5 mg PO SUTUTHSA 05/01/17 05/01/17 History Allergies Allergy/AdvReac Type Severity Reaction Status Date / Time No Known Allergies Allergy Verified 05/01/17 07:09 Physical Exam Vitals: Vital Signs Temp Pulse Resp BP Pulse Ox 05/01/17 13:02 97.5 F L 96 16 128/87 96 05/01/17 12:32 97.4 F L 87 18 166/96 97 05/01/17 12:22 97.3 F L 89 18 140/99 96 05/01/17 11:08 96 18 124/67 98 05/01/17 09:46 98.0 F 91 18 128/78 98 05/01/17 06:22 65 18 135/82 98 05/01/17 04:41 97.6 F 64 18 150/70 97 Intake and Output 04/30/17 05/01/17 05/01/17 22:59 06:59 14:59 Intake Total 0 Balance 0 Intake: Blood Product 0 Ffp 24 Cp2d Unit 0 [id number] Other: Weight 88.451 kg - Constitutional General appearance: mild distress - EENT Eyes: PERRLA Ears: bilateral: normal - Neck Neck: normal ROM - Respiratory Respiratory: bilateral: CTA - Cardiovascular Rhythm: irregularly irregular - Gastrointestinal General gastrointestinal: soft, umbilical hernia Localized gastrointestinal: tender: diffuse - Integumentary Cellulitis chronic noted to right lower extremity Integumentary: normal - Neurologic Right-handed contracted from previous CVA Neurologic: CNII-XII intact - Musculoskeletal Musculoskeletal: right sided weakness - Psychiatric Patient has expressive dysphasia Psychiatric: A&O x's 3 Results CBC & Chem 7: 05/01/17 04:40 05/01/17 04:40 Labs: Abnormal Lab Results - Last 24 Hours (Table) 05/01/17 05/01/17 05/01/17 Range/Units 04:40 04:40 04:40 WBC 13.6 H (3.8-10.6) k/uL Hgb 16.5 H (11.4-16.0) gm/dL Hct 50.8 H (34.0-46.0) % Neutrophils # 12.0 H (1.3-7.7) k/uL Lymphocytes # 0.9 L (1.0-4.8) k/uL PT 17.1 H (9.0-12.0) sec INR 1.9 H (<1.2) BUN 25 H (7-17) mg/dL Glucose 164 H (74-99) mg/dL Calcium 11.1 H (8.4-10.2) mg/dL AST 44 H (14-36) U/L Total Protein 8.5 H (6.3-8.2) g/dL Lipase 305 H (23-300) U/L Urine Appearance (Clear) Urine Protein (Negative) Urine Blood (Negative) Urine Bilirubin (Negative) Ur Leukocyte Esterase (Negative) Urine RBC (0-5) /hpf Urine WBC (0-5) /hpf Ur Squamous Epith Cells (0-4) /hpf Urine Bacteria (None) /hpf Urine Mucus (None) /hpf 05/01/17 Range/Units 06:20 WBC (3.8-10.6) k/uL Hgb (11.4-16.0) gm/dL Hct (34.0-46.0) % Neutrophils # (1.3-7.7) k/uL Lymphocytes # (1.0-4.8) k/uL PT (9.0-12.0) sec INR (<1.2) BUN (7-17) mg/dL Glucose (74-99) mg/dL Calcium (8.4-10.2) mg/dL AST (14-36) U/L Total Protein (6.3-8.2) g/dL Lipase (23-300) U/L Urine Appearance Cloudy H (Clear) Urine Protein 1+ H (Negative) Urine Blood Small H (Negative) Urine Bilirubin 1+ H (Negative) Ur Leukocyte Esterase Moderate H (Negative) Urine RBC 16 H (0-5) /hpf Urine WBC 141 H (0-5) /hpf Ur Squamous Epith Cells 14 H (0-4) /hpf Urine Bacteria Many H (None) /hpf Urine Mucus Rare H (None) /hpf CT scan - abdomen: report reviewed Thrombosis Risk Factor Assmnt - Choose All That Apply Any of the Below Risk Factors Present?: Yes Each Factor Represents 1 point: Obesity (BMI >25) Other Risk Factors: Yes Each Risk Factor Represents 2 Points: Age 61-74 years Other congenital or acquired thrombophilia - If yes, enter type in comment: No Thrombosis Risk Factor Assessment Total Risk Factor Score: 3 Thrombosis Risk Factor Assessment Level: Moderate Risk Assessment and Plan Plan: Assessment Umbilical hernia with obstruction Chronic atrial fibrillation with RVR Severe mitral stenosis with tricuspid regurgitation Congestive heart failure diastolic dysfunction Hypertension History of CVA with aphasia right-sided weakness Obesity Urinary tract infection Plan Patient is scheduled for surgery at 3 PM today On Zosyn
[2017-05-01] MEDS: MORPHINE SULFATE 5 MG/ML SYRINGE IV PRN ×2 (14:38→23:32)
[2017-05-01 15:11] LABS: INR 1.8 (<1.2); Prothrombin Time 16.4 sec (9.0-12.0)
[2017-05-01] MEDS ORDERED: IV FLUID CONTINUATION 1,000 ML IV ONE (15:20)
[2017-05-01] MEDS ORDERED: fentaNYL (PF) 50 MCG/ML 2 ML AMP ONE (15:33)
[2017-05-01] MEDS ORDERED: ROCURONIUM BROMIDE 10 MG/ML 10 ML VIAL IV ONE (15:33)
[2017-05-01] MEDS ORDERED: PHENYLEPHRINE-0.9% NACL SYG 1 MG/10 ML SYRINGE ONE (15:33)
[2017-05-01] MEDS ORDERED: LIDOCAINE 1% INJ 10MG/ML (20 ML MDV) ONE (15:33)
[2017-05-01] MEDS ORDERED: NEOSTIGMINE 1 MG/ML 10 ML VIAL ONE (15:33)
[2017-05-01] MEDS ORDERED: PROPOFOL 10 MG/ML 20 ML VIAL IV ONE (15:33)
[2017-05-01] MEDS ORDERED: GLYCOPYRROLATE 0.2 MG/ML 2 ML VIAL ONE (15:33)
[2017-05-01] MEDS ORDERED: BUPIVACAIN-EPI 0.5%-1:200,000 30 ML VIAL SQ ONE (16:06)
--- NOTE | 2017-05-01 17:25 | P.OP ---
Date of Procedure: 05/01/17 Preoperative Diagnosis: Incarcerated umbilical hernia with obstruction Chronic atrial fibrillation with RVR Severe mitral stenosis with tricuspid regurgitation Congestive heart failure diastolic dysfunction Pulmonary artery hypertension Hypertension History of CVA with aphasia right-sided weakness Obesity BMI 35.7 Urinary tract infection Postoperative Diagnosis: Same Procedure(s) Performed: Laparoscopic incarcerated umbilical hernia repair with mesh Laparoscopic resection of incarcerated omentum Implants: Ventralex ST 6.4 cm circular mesh Anesthesia: GETA, local Surgeon: Josette Mulligan Pathology: none sent Condition: stable Disposition: PACU Indications for Procedure: 67 years old female with multiple comorbid conditions presents with incarcerated umbilical hernia containing small bowel and causing obstruction. INR was 1.9 at presentation. Vitamin K and 2 units of FFP were given Her comorbid conditions include: Chronic atrial fibrillation with RVR Severe mitral stenosis with tricuspid regurgitation Congestive heart failure diastolic dysfunction Hypertension History of CVA with aphasia right-sided weakness Obesity BMI 35.7 Urinary tract infection Operative Findings: 2 cm hernia defect at the umbilicus containing small bowel loop which were spontaneously reduced and a piece of incarcerated omentum Description of Procedure: The patient was brought to the operating room and placed in supine position with both arms out. General anesthesia with endotracheal intubation was performed as per anesthesia team. The right arm was tucked against the body and a footboard was applied. Chlorhexidine was used to prep the skin followed by application of sterile drapes and Ioban dressing. A timeout was performed to verify correct patient and correct procedure. Patient was confirmed to receive perioperative IV antibiotics , bilateral SCDs . A 5 mm skin incision was made along the left midaxillary line and a Veress needle was inserted to establish the pneumoperitoneum to a pressure of 15 mm of Hg. Two additional 5 mm trocars were placed on the left mid and lower quadrants respectively. A 10 mm trocar was placed in the right upper quadrant. The hernia defect contained omentum which was reduced using gentle traction and countertraction method. The hernia sac and is contents were reduced and divided using laparoscopic Ligasure device. A piece of incarcerated omentum was divided and removed from the abdomen cavity. The small bowel loop which was incarcerated was spontaneously reduced. It was mildly erythematous but no necrosis and demonstrated peristalsis. Hence no bowel resection was performed At 6.4 cm circular ventralex mesh was tagged in the center using a vicryl stitich and was rolled and introduced to the abdominal cavity via the 10 mm trocar. The hernia defect was closed primarily with three transfascial sutures of #1 Neurolon using a Lj Fernando device. The Lj Fernando device was inserted through the middle of the hernia defect and stay suture was grasped to elevate the mesh against the anterior abdominal wall. Circumferential securestraps were applied to secure the mesh against the anterior abdominal wall. Additional row of secure straps were fired to appose the mesh against the anterior abdominal wall without any folds or kinks. All trocar sites were examined. No evidence of bleeding. The 10 mm trocar site was closed using two transfascial sutures of 0 Vicryl which were placed using a Lj Fernando device. The pneumoperitoneum was evacuated and all the skin incisions were closed using 4-0 Monocryl followed by Dermabond skin glue. Telfa and Tegaderm dressings were applied. The sponge, instrument and needle count were correct x2. Abdominal binder was applied. The patient was extubated and taken to post anesthesia care unit in stable condition.
[2017-05-01] MEDS ORDERED: LABETALOL 5 MG/ML VIAL MDV IVP ONE (17:50)
[2017-05-01] MEDS ORDERED: SODIUM CHLORIDE 0.9% 1,000 ML IV ONE (18:03)
[2017-05-02] MEDS: MORPHINE SULFATE 5 MG/ML SYRINGE IV PRN (05:44)
[2017-05-02] MEDS: SODIUM CHLORIDE 0.9% 1,000 ML IV SCH ×3 (05:44→14:09)
[2017-05-02 08:05] LABS: Basophils % (A) 0 %; Eosinophils # (A) 0.1 k/uL (0-0.7); Eosinophils % (A) 1 %; HCT 46.4 % (34.0-46.0); HGB 14.4 gm/dL (11.4-16.0); Hypochromasia Slight; Lymphocytes # (A) 0.5 k/uL (1.0-4.8); Lymphocytes % (A) 4 %; MCH 30.6 pg (25.0-35.0); MCV 98.7 fL (80.0-100.0); Macrocytosis Slight; Mean Platelet Volume 8.1; Monocytes # (A) 0.4 k/uL (0-1.0); Monocytes % (A) 3 %; Neutrophils # (A) 10.8 k/uL (1.3-7.7); Neutrophils % (A) 92 %; Platelet Count 186 k/uL (150-450); RDW 15.1 % (11.5-15.5); WBC 11.8 k/uL (3.8-10.6)
[2017-05-02 08:09] LABS: INR 1.6 (<1.2); Prothrombin Time 14.5 sec (9.0-12.0)
[2017-05-02 08:17] LABS: ALT 42 U/L (9-52); AST 35 U/L (14-36); Albumin 3.7 g/dL (3.5-5.0); Alkaline Phosphatase 84 U/L (38-126); Anion Gap 11 mmol/L; Blood Urea Nitrogen 27 mg/dL (7-17); Calcium 9.3 mg/dL (8.4-10.2); Carbon Dioxide 28 mmol/L (22-30); Chloride 105 mmol/L (98-107); Glucose 154 mg/dL (74-99); Potassium 4.2 mmol/L (3.5-5.1); Sodium 144 mmol/L (137-145); Total Protein 6.8 g/dL (6.3-8.2)
[2017-05-02] MEDS: PANTOPRAZOLE 40 MG/10 ML VIAL IV SCH (08:47)
[2017-05-02] MEDS ORDERED: PANTOPRAZOLE 40 MG/10 ML VIAL IVP SCH (09:00)
--- NOTE | 2017-05-02 09:05 | P.PN ---
Subjective Progress Note Date: 05/02/17 67-year-old female seen and examined. Family at the bedside. Patient sedated open eyes to verbal stimuli only heart rate noted to be up 150s monitor shows A. fib with a rapid ventricular response patient is postop May 01 laparoscopic incarcerated umbilical hernia repair with mesh. Patient does have a history of a CVA with right-sided weakness and aphasia. Also has a history of chronic atrial fibrillation on Coumadin at home. Surgical sites dressings dry few hypoactive bowel tones noted Objective - Vital Signs Vital signs: Vital Signs Temp 97.9 F 05/02/17 07:00 Pulse 153 H 05/02/17 07:47 Resp 16 05/02/17 07:00 BP 128/74 05/02/17 07:00 Pulse Ox 92 L 05/02/17 07:00 Intake & Output 05/01/17 05/02/17 05/02/17 18:59 06:59 18:59 Intake Total 1636 Output Total 325 Balance 1311 Intake: IV 1100 Blood Product 536 Ffp 24 Cp2d Unit 218 [id number] Ffp 24 Cpd Unit 318 [id number] Output: Urine 300 Estimated Blood Loss 25 Other: Voiding Method Bedside Commode Incontinent Bedpan # Voids 2 1 # Bowel Movements 0 - Exam GENERAL APPEARANCE: 67-year-old female sedated arousable to verbal stimuli just received IV morphine for pain control VITAL SIGNS: Reviewed noted heart rate up to 150s HEENT: Head is normocephalic and atraumatic. Pupils are equal and reactive. The nares are patent. Oropharynx is clear without lesions. NECK: Supple without lymphadenopathy. Traches midline. HEART: S1, S2. Irregular monitor atrial fibrillation rapid ventricular response LUNGS: No crackles or wheezes are heard. Adequate air movement bilaterally ABDOMEN: Soft, slight surgical tenderness nondistended a few hypoactive bowel tones surgical dressing site dry. No peritoneal signs. No palpable organomegaly or masses incontinent of urine. EXTREMITIES: Normal skin color and turgor. No cyanosis, rash, ulceration, clubbing or edema. Radial pedal pulses are 2/4 bilaterally. - Constitutional Constitutional Comment(s): physical exam 67-year-old female resting in bed will open eyes to verbal stimuli had just received morphine 30 minutes prior lungs anterior adequate air movement no wheezing rhonchiSats 92% on room air Heart S1-S2 audible irregular monitor A. fib RVR Abdomen dressing was to surgical site dry abdominal binder in place a few hypoactive bowel tones notedno stool incontinence of urine surgical tenderness appropriate Extremities no pedal edema noted - Labs CBC & Chem 7: 05/02/17 07:45 05/02/17 07:45 Labs: Abnormal Lab Results - Last 24 Hours (Table) 05/01/17 05/02/17 05/02/17 Range/Units 14:26 07:45 07:45 WBC 11.8 H (3.8-10.6) k/uL Hct 46.4 H (34.0-46.0) % Neutrophils # 10.8 H (1.3-7.7) k/uL Lymphocytes # 0.5 L (1.0-4.8) k/uL PT 16.4 H (9.0-12.0) sec INR 1.8 H (<1.2) BUN 27 H (7-17) mg/dL Glucose 154 H (74-99) mg/dL Total Bilirubin 2.0 H (0.2-1.3) mg/dL 05/02/17 Range/Units 07:45 WBC (3.8-10.6) k/uL Hct (34.0-46.0) % Neutrophils # (1.3-7.7) k/uL Lymphocytes # (1.0-4.8) k/uL PT 14.5 H (9.0-12.0) sec INR 1.6 H (<1.2) BUN (7-17) mg/dL Glucose (74-99) mg/dL Total Bilirubin (0.2-1.3) mg/dL Assessment and Plan Assessment: impression postop May 01 laparoscopic incarcerated umbilical hernia repair with mesh Chronic atrial fibrillation with episodes of RVR Present on admission abdominal pain likely due to incarcerated umbilical hernia with obstruction A prior CVA with right side weakness and aphasia chronic debility wheelchair bedbound suspect due to prior CVA obesity BMI 35 Present on admission umbilical hernia with obstruction with no gangrene Echocardiogram May 01 mildly impaired left ventricular systolic function EF 45-50% with moderate pulmonary hypertension Plan agree with cardiology eval Postop surgical care Pain control DVT and GI prophylaxis Further surgical recommendations pending Increase activity as tolerated Keep nothing by mouth except ice chips and popsicles for now do not advance diet Resume home meds as appropriate progress note being dictated for Dr. Mulligan The above impression and plan of care have been discussed and directed by signing physician. Mary Montanez nurse practitioner acting as scribe for signing physician.
[2017-05-02] MEDS ORDERED: METOPROLOL TARTRATE 50 MG TAB PO STA (09:30)
--- NOTE | 2017-05-02 12:04 | P.PN ---
Subjective Patient developed RVR with atrial fib a beta darline has been on hold since surgery. Cardiology was consulted. Patient is postoperative from hernia repair mildly sedated increased cough and deep breathe Objective - Vital Signs Vital signs: Vital Signs Temp 97.9 F 05/02/17 07:00 Pulse 153 H 05/02/17 07:47 Resp 16 05/02/17 07:00 BP 128/74 05/02/17 07:00 Pulse Ox 92 L 05/02/17 07:00 Intake & Output 05/01/17 05/02/17 05/02/17 18:59 06:59 18:59 Intake Total 1636 Output Total 325 Balance 1311 Intake: IV 1100 Blood Product 536 Ffp 24 Cp2d Unit 218 [id number] Ffp 24 Cpd Unit 318 [id number] Output: Urine 300 Estimated Blood Loss 25 Other: Voiding Method Bedside Commode Incontinent Bedpan # Voids 2 1 # Bowel Movements 0 - Constitutional General appearance: Present: morbidly obese - EENT Eyes: Present: PERRLA Ears: bilateral: normal - Neck Neck: Present: normal ROM - Respiratory Respiratory: bilateral: rhonchi - Cardiovascular Rhythm: irregularly irregular Abnormal Heart Sounds: Present: systolic murmur - Gastrointestinal General gastrointestinal: Present: soft Localized gastrointestinal: tender: diffuse - Integumentary Integumentary: Present: normal - Neurologic Neurologic: Present: CNII-XII intact - Musculoskeletal Musculoskeletal: Present: right sided weakness - Psychiatric Psychiatric: Present: A&O x's 3 - Labs CBC & Chem 7: 05/02/17 07:45 05/02/17 07:45 Labs: Abnormal Lab Results - Last 24 Hours (Table) 05/01/17 05/02/17 05/02/17 Range/Units 14:26 07:45 07:45 WBC 11.8 H (3.8-10.6) k/uL Hct 46.4 H (34.0-46.0) % Neutrophils # 10.8 H (1.3-7.7) k/uL Lymphocytes # 0.5 L (1.0-4.8) k/uL PT 16.4 H (9.0-12.0) sec INR 1.8 H (<1.2) BUN 27 H (7-17) mg/dL Glucose 154 H (74-99) mg/dL Total Bilirubin 2.0 H (0.2-1.3) mg/dL 05/02/17 Range/Units 07:45 WBC (3.8-10.6) k/uL Hct (34.0-46.0) % Neutrophils # (1.3-7.7) k/uL Lymphocytes # (1.0-4.8) k/uL PT 14.5 H (9.0-12.0) sec INR 1.6 H (<1.2) BUN (7-17) mg/dL Glucose (74-99) mg/dL Total Bilirubin (0.2-1.3) mg/dL Assessment and Plan Plan: Assessment Incarcerated umbilical hernia post hernia repair arthroscopic Atrial fibrillation with RVR Severe mitral stenosis/tricuspid regurgitation History of congestive heart failure diastolic dysfunction Hypertension History of CVA with right-sided weakness and expressive aphasia Plan Continue consultation with a Dr. Mulligan Continued consultation with cardiology
--- NOTE | 2017-05-02 14:20 | P.CRDCN ---
History of Present Illness Consult date: 05/02/17 History of present illness: Mrs. Mills is a pleasant 67-year-old female with past medical history significant for non-ischemic cardiomyopathy, dyslipidemia, hypertension , atrial fibrillation, COPD, GERD, renal disease, current tobacco use and CVA. She sees Dr. Lawrence as an outpatient but has not followed up since 2014. She presented to the hospital yesterday with abdominal pain and was found to have an incarcerated umbilical hernia. She was taken to the OR with Dr. Mulligan and underwent laporascopic incarcerated hernia repair with mesh and resection of omentum. This morning she was found to be in atrial fibrillation with uncontrolled rapid ventricular response. Heart rate was up in the 140-150 range. Prior to surgery she was given Vitamin K for INR 1.9 as well as 2 units of fresh frozen plasma. No home medications had been resumed. She was seen sitting up in bed with family at the bedside. She denies chest pain, palpitations, dizziness, shortness of breath, nausea or vomiting. She has right sided weakness residual from previous CVA. EKG on arrival reveals atrial fibrillation with controlled ventricular response heart rate 79. Repeat done this morning is atrial fibrillation with rate 143. Echocardiogram ordered yesterday before surgery reveals impaired LV systolic function with EF 45-50%, moderately enlarged RV, severely dilated LA, severely thickened mitral valve leaflets, moderate MR with peak/mean gradients 23.74mmHg/ 10.58mmHg, severe mitral stenosis, severe tricuspid regurgitation and moderate pulmonary hypertension with RVSP 46.68mmHg. When compared to last echo in 2013 the LV function has remained the same with worsening valvular heart disease. Laboratory data reviewed, WBC 11.8, hgb 14.4, plt 186, INR 1.6, potassium 4.2, magnesium 1.8. Current cardiac home medications include coumadin 2.5mg and 5mg , lopressor 25mg BID, lasix 40mg daily and digoxin 250mcg daily. Review of Systems At the time of my exam: CONSTITUTIONAL: Denies fever. Denies chills. EYES: Denies blurred vision. Denies vision changes. Denies eye pain. EARS, NOSE, MOUTH & THROAT: Denies headache. Denies sore throat. Denies ear pain. CARDIOVASCULAR: Denies chest pain. Denies shortness of breath. Denies orthopnea. Denies PND. Denies palpitations. RESPIRATORY: Denies cough. GASTROINTESTINAL: Complains of abdominal pain. Denies diarrhea. Denies constipation. Denies nausea. Denies vomiting. MUSCULOSKELETAL: Denies myalgias. INTEGUMENTARY: Denies pruitis. Denies rash. NEUROLOGIC: Denies numbness. Denies tingling. Denies weakness. PSYCHIATRIC: Denies anxiety. Denies depression. ENDOCRINE: Denies fatigue. Denies weight change. Denies polydipsia. Denies polyurina. GENITOURINARY: Denies burning, hematuria or urgency with micturation. HEMATOLOGIC: Denies history of anemia. Denies bleeding. Past Medical History Past Medical History: Unable to Obtain, Atrial Fibrillation, Chest Pain / Angina , COPD, CVA/TIA, GERD/Reflux, Hyperlipidemia, Hypertension, Osteoarthritis (OA) , Pneumonia, Renal Disease Additional Past Medical History / Comment(s): CVA ub 2001 with R sided weakness of arm/leg and dysphasia, Afib with RVR, tircuspid regurgitation, head injury, DJD, occasional back pain, CRD, UTIs, kidney infections, anemia, bronchitis. History of Any Multi-Drug Resistant Organisms: None Reported Past Surgical History: Section, Orthopedic Surgery, Tonsillectomy Additional Past Surgical History / Comment(s): X2, L tibial IM nailing , recent teeth extractions in preparation for dentures. Past Anesthesia/Blood Transfusion Reactions: No Reported Reaction Smoking Status: Former smoker - Past Family History Father Family Medical History: No Reported History Additional Family Medical History / Comment(s): FATHER WAS HEALTHY AND LIVED TO BE 96YRS OLD. Mother Family Medical History: Cancer Additional Family Medical History / Comment(s): MOTHER HAD BREAST CANCER. Medications and Allergies Home Medications Medication Instructions Recorded Confirmed Type Furosemide [Lasix] 40 mg PO DAILY 03/31/15 05/01/17 History Digoxin [Lanoxin] 250 mcg PO DAILY #30 tab 04/27/15 05/01/17 Rx Metoprolol Tartrate [Lopressor] 25 mg PO BID #60 tab 04/27/15 05/01/17 Rx Albuterol Inhaler [Ventolin Hfa 1 - 2 puff INHALATION RT-Q6H PRN 05/01/17 History Inhaler] Budesonide-Formot 160-4.5 Mcg 2 puff INHALATION RT-BID 05/01/17 05/01/17 History [Symbicort 160-4.5 Mcg Inhaler] Tiotropium [place] [Spiriva] 1 cap INHALATION RT-DAILY 05/01/17 05/01/17 History Warfarin [Coumadin] 2.5 mg PO MOWEFR 05/01/17 05/01/17 History Warfarin [Coumadin] 5 mg PO SUTUTHSA 05/01/17 05/01/17 History Allergies Allergy/AdvReac Type Severity Reaction Status Date / Time No Known Allergies Allergy Verified 05/01/17 07:09 Physical Exam Vitals: Vital Signs Temp Pulse Pulse Pulse Pulse Resp BP 05/02/17 08:00 16 05/02/17 07:47 153 H 05/02/17 07:00 97.9 F 140 H 16 05/02/17 00:26 104 H 05/01/17 23:00 95.9 F L 92 16 05/01/17 20:50 100 05/01/17 20:34 98.0 F 103 H 18 124/75 05/01/17 20:20 102 H 05/01/17 20:05 121 H 05/01/17 19:50 102 H 05/01/17 19:35 107 H 05/01/17 19:20 97.1 F L 103 H 16 05/01/17 18:45 107 H 16 05/01/17 18:32 115 H 16 05/01/17 18:16 105 H 16 05/01/17 18:01 95 16 05/01/17 17:47 138 H 18 05/01/17 17:30 152 H 18 05/01/17 17:26 97.4 F L 132 H 18 05/01/17 15:18 98.2 F 67 18 05/01/17 15:00 98.0 F 95 20 05/01/17 13:39 97.3 F L 100 18 112/82 05/01/17 13:02 97.5 F L 96 16 128/87 05/01/17 12:32 97.4 F L 87 18 166/96 BP BP Pulse Ox 05/02/17 08:00 05/02/17 07:47 05/02/17 07:00 128/74 92 L 05/02/17 00:26 113/63 97 05/01/17 23:00 122/52 98 05/01/17 20:50 124/75 98 05/01/17 20:34 98 05/01/17 20:20 106/75 97 05/01/17 20:05 116/73 98 05/01/17 19:50 114/64 96 05/01/17 19:35 121/78 96 05/01/17 19:20 130/89 96 05/01/17 18:45 145/79 95 05/01/17 18:32 133/88 95 05/01/17 18:16 121/68 100 05/01/17 18:01 127/65 100 05/01/17 17:47 166/105 100 05/01/17 17:30 159/102 98 05/01/17 17:26 143/96 97 05/01/17 15:18 133/78 97 05/01/17 15:00 106/59 99 05/01/17 13:39 99 05/01/17 13:02 96 05/01/17 12:32 97 Intake and Output 05/01/17 05/02/17 05/02/17 22:59 06:59 14:59 Intake Total 1418 Output Total 325 Balance 1093 Intake: IV 1100 Blood Product 318 Ffp 24 Cpd Unit 318 [id number] Output: Urine 300 Estimated Blood Loss 25 Other: Voiding Method Bedside Commode Incontinent Incontinent Bedpan # Voids 0 2 1 Blood pressure 128/74 heart rate 140 afebrile GENERAL: This is a 67-year-old female in no apparent distress at the time of my examination. Obese HEENT: Head is atraumatic, normocephalic. Pupils are equal, round. Sclerae anicteric. Conjunctivae are clear. Mucous membranes of the mouth are moist. Neck is supple. There is no jugular venous distention. No carotid bruit is heard. LUNGS: Clear to auscultation no wheezes, rales or rhonchi. No chest wall tenderness is noted on palpation or with deep breathing. Diminished. HEART: Irregular rate and rhythm with murmur at the apex, no rubs or gallops. S1 and S2 heard. ABDOMEN: Soft, nontender. EXTREMITIES: 1+ peripheral pulses with trace evidence of peripheral edema non- pitting b/l and no calf tenderness noted. NEUROLOGIC: Patient is awake, alert and oriented x3. Results 05/02/17 07:45 05/02/17 07:45 Cardiac Enzymes 05/02/17 Range/Units 07:45 AST 35 (14-36) U/L Coagulation 05/01/17 05/02/17 Range/Units 14:26 07:45 PT 16.4 H 14.5 H (9.0-12.0) sec CBC 05/02/17 Range/Units 07:45 WBC 11.8 H (3.8-10.6) k/uL RBC 4.70 (3.80-5.40) m/uL Hgb 14.4 (11.4-16.0) gm/dL Hct 46.4 H (34.0-46.0) % Plt Count 186 (150-450) k/uL Comprehensive Metabolic Panel 05/02/17 Range/Units 07:45 Sodium 144 (137-145) mmol/L Potassium 4.2 (3.5-5.1) mmol/L Chloride 105 (98-107) mmol/L Carbon Dioxide 28 (22-30) mmol/L BUN 27 H (7-17) mg/dL Creatinine 0.97 (0.52-1.04) mg/dL Glucose 154 H (74-99) mg/dL Calcium 9.3 (8.4-10.2) mg/dL AST 35 (14-36) U/L ALT 42 (9-52) U/L Alkaline Phosphatase 84 (38-126) U/L Total Protein 6.8 (6.3-8.2) g/dL Albumin 3.7 (3.5-5.0) g/dL Current Medications Generic Name Dose Route Start Last Admin Trade Name Freq PRN Reason Stop Dose Admin Heparin Sodium (Porcine) 5,000 unit 05/02/17 16:00 Heparin SQ Q8HR KALINA Sodium Chloride 1,000 mls @ 120 mls/hr 05/01/17 08:15 05/02/17 08:43 Saline 0.9% IV 120 mls/hr .Q8H20M KALINA Administration Morphine Sulfate 1 mg 05/02/17 09:05 Morphine Sulfate (Inj) IV Q4HR PRN Severe Pain Naloxone HCl 0.2 mg 05/01/17 08:05 Narcan IV Q2M PRN Opioid Reversal Ondansetron HCl 4 mg 05/01/17 17:27 Zofran IVP Q6HR PRN Nausea And Vomiting Pantoprazole Sodium 40 mg 05/01/17 09:00 05/02/17 08:47 Protonix IV 40 mg DAILY KALINA Administration Intake and Output 05/01/17 05/02/17 05/02/17 22:59 06:59 14:59 Intake Total 1418 Output Total 325 Balance 1093 Intake: IV 1100 Blood Product 318 Ffp 24 Cpd Unit 318 [id number] Output: Urine 300 Estimated Blood Loss 25 Other: Voiding Method Bedside Commode Incontinent Incontinent Bedpan # Voids 0 2 1 05/02/17 07:45 05/02/17 07:45 Assessment and Plan Assessment: ASSESSMENT 1. Chronic persistent atrial fibrillation with uncontrolled rapid ventricular response 2. Idiopathic cardiomyopathy 3. Chronic systolic heart failure, currently compensated 4. Dyslipidemia 5. Hypertension 6. Severe mitral stenosis with moderate regurgitation. 7. Leukocytosis 8. Laparoscopic umbilical hernia repair postoperative day #1 PLAN Give 1 dose of Lopressor 50 mg by mouth now. Resume home medications to include digoxin 250 g daily, Lasix 40 mg daily, and Lopressor 25 mg twice a day. Coumadin should be resumed as soon as is possible per surgery. CHANDRIKA inhibitor is indicated secondary to cardiomyopathy. Would recommend lisinopril 10 mg daily. In the past she was on this regimen and over the course of the previous 2 years this was stopped for unknown reason. Cautious fluid administration. Continue with telemetry monitoring. Further recommendations will be based upon clinical course. The above impression and plan of care have been discussed and directed by the signing physician. Dionna Walsh, nurse practitioner, acting as scribe for signing physician.
[2017-05-02] MEDS: DIGOXIN 250 MCG TAB PO SCH (15:12)
[2017-05-02] MEDS: FUROSEMIDE 40 MG TAB PO SCH (15:12)
[2017-05-02] MEDS: HEPARIN SODIUM,PORCINE 5,000 UNIT/ML 1 ML VIAL SQ SCH (15:13)
[2017-05-02] MEDS: MORPHINE SULFATE 2 MG/ML SYRINGE IV PRN ×2 (16:22→23:59)
[2017-05-02] MEDS: METOPROLOL TARTRATE 25 MG TAB PO SCH (21:11)
[2017-05-03] MEDS: HEPARIN SODIUM,PORCINE 5,000 UNIT/ML 1 ML VIAL SQ SCH ×3 (00:01→15:27)
[2017-05-03] MEDS: MORPHINE SULFATE 2 MG/ML SYRINGE IV PRN (05:54)
[2017-05-03] MEDS: SODIUM CHLORIDE 0.9% 1,000 ML IV SCH ×6 (05:55→15:35)
[2017-05-03] MEDS ORDERED: LISINOPRIL 10 MG TAB PO SCH (09:00)
[2017-05-03 09:20] LABS: Basophils % (A) 0 %; Eosinophils % (A) 0 %; HCT 43.5 % (34.0-46.0); HGB 13.3 gm/dL (11.4-16.0); Hypochromasia Moderate; Lymphocytes # (A) 1.1 k/uL (1.0-4.8); Lymphocytes % (A) 10 %; MCH 31.3 pg (25.0-35.0); MCHC 30.5 g/dL (31.0-37.0); MCV 102.6 fL (80.0-100.0); Macrocytosis Slight; Mean Platelet Volume 8.3; Monocytes # (A) 0.7 k/uL (0-1.0); Monocytes % (A) 6 %; Neutrophils # (A) 9.3 k/uL (1.3-7.7); Neutrophils % (A) 82 %; Platelet Count 153 k/uL (150-450); RBC 4.24 m/uL (3.80-5.40); RDW 14.4 % (11.5-15.5); WBC 11.3 k/uL (3.8-10.6)
[2017-05-03 09:22] LABS: ALT 44 U/L (9-52); AST 46 U/L (14-36); Albumin 3.7 g/dL (3.5-5.0); Alkaline Phosphatase 89 U/L (38-126); Anion Gap 13 mmol/L; Blood Urea Nitrogen 27 mg/dL (7-17); Carbon Dioxide 27 mmol/L (22-30); Chloride 105 mmol/L (98-107); Glucose 115 mg/dL (74-99); Sodium 145 mmol/L (137-145); Total Bilirubin 1.9 mg/dL (0.2-1.3); Total Protein 6.7 g/dL (6.3-8.2)
[2017-05-03] MEDS: DIGOXIN 250 MCG TAB PO SCH (09:50)
[2017-05-03] MEDS: PANTOPRAZOLE 40 MG/10 ML VIAL IV SCH (09:50)
[2017-05-03] MEDS: METOPROLOL TARTRATE 25 MG TAB PO SCH ×2 (09:50→22:38)
[2017-05-03] MEDS: FUROSEMIDE 40 MG TAB PO SCH (09:50)
--- NOTE | 2017-05-03 10:06 | P.PN ---
Subjective Progress Note Date: 05/03/17 67-year-old female seen and examined at bedside patient has right side weakness from a prior CVA is aphasia Currently sitting up in bed family at bedside. Telemetry shows A. fib controlled ventricular response heart rate in the 70s and 80s this morning. Cardiology following Postop May 01 laparoscopic incarcerated umbilical hernia repair with mesh Objective - Vital Signs Vital signs: Vital Signs Temp 97.9 F 05/03/17 07:00 Pulse 89 05/03/17 07:00 Resp 16 05/03/17 07:00 BP 102/68 05/03/17 07:00 Pulse Ox 96 05/03/17 07:00 Intake & Output 05/02/17 05/03/17 05/03/17 18:59 06:59 18:59 Other: Voiding Method Incontinent # Voids 1 5 - Exam GENERAL APPEARANCE: 67-year-old female wake resting in bed appears in no acute distress VITAL SIGNS: Reviewed HEENT: Head is normocephalic and atraumatic. Pupils are equal and reactive. The nares are patent. Oropharynx is clear without lesions. NECK: Supple without lymphadenopathy. Traches midline. HEART: S1, S2. Irregular monitor atrial fibrillation controlled ventricular response LUNGS: No crackles or wheezes are heard. Adequate air movement bilaterally 96% on 2 L ABDOMEN: Soft, slight surgical tenderness nondistended a few hypoactive bowel tones surgical dressing site dry. incontinent of urine. No stool taking ice chips EXTREMITIES: Right side weakness no edema - Labs CBC & Chem 7: 05/03/17 08:20 05/03/17 08:20 Labs: Abnormal Lab Results - Last 24 Hours (Table) 05/03/17 05/03/17 Range/Units 08:20 08:20 WBC 11.3 H (3.8-10.6) k/uL MCV 102.6 H (80.0-100.0) fL MCHC 30.5 L (31.0-37.0) g/dL Neutrophils # 9.3 H (1.3-7.7) k/uL BUN 27 H (7-17) mg/dL Glucose 115 H (74-99) mg/dL Total Bilirubin 1.9 H (0.2-1.3) mg/dL AST 46 H (14-36) U/L Assessment and Plan Assessment: impression postop May 01 laparoscopic incarcerated umbilical hernia repair with mesh Chronic atrial fibrillation with episodes of RVR Present on admission abdominal pain likely due to incarcerated umbilical hernia with obstruction A prior CVA with right side weakness and aphasia chronic debility wheelchair bedbound suspect due to prior CVA obesity BMI 35 Present on admission umbilical hernia with obstruction with no gangrene Echocardiogram May 01 mildly impaired left ventricular systolic function EF 45-50% with moderate pulmonary hypertension Plan Continue with cardiology recommendations Postop surgical care Pain control DVT and GI prophylaxis Further surgical recommendations pending Increase activity as tolerated Keep nothing by mouth except ice chips and popsicles for now do not advance diet Resume home meds as appropriate PT OT eval Will discuss with surgical attending about restarting anticoagulation Coumadin and advancing diet progress note being dictated for Dr. Mulligan The above impression and plan of care have been discussed and directed by signing physician. Mary Montanez nurse practitioner acting as scribe for signing physician.
--- NOTE | 2017-05-03 11:04 | P.PN ---
Subjective Principal diagnosis: Patient resting in bed has been at bedside. Noted of increasing distention of abdomen and KUB ordered. Atrial fibrillation controlled Objective - Vital Signs Vital signs: Vital Signs Temp 97.9 F 05/03/17 07:00 Pulse 89 05/03/17 09:30 Resp 16 05/03/17 09:30 BP 102/68 05/03/17 07:00 Pulse Ox 96 05/03/17 07:00 Intake & Output 05/02/17 05/03/17 05/03/17 18:59 06:59 18:59 Weight 88.451 kg Other: Voiding Method Incontinent Bedpan Incontinent # Voids 1 5 # Bowel Movements 0 - Constitutional General appearance: Present: obese - EENT Eyes: Present: PERRLA Ears: bilateral: normal - Neck Neck: Present: normal ROM - Respiratory Respiratory: bilateral: CTA - Cardiovascular Rhythm: irregularly irregular - Gastrointestinal General gastrointestinal: Present: decreased bowel sounds, distended - Integumentary Integumentary: Present: normal - Neurologic Neurologic: Present: CNII-XII intact - Musculoskeletal Musculoskeletal: Present: generalized weakness, right sided weakness - Psychiatric Psychiatric Comment(s): Patient has expressive dysphasia Psychiatric: Present: A&O x's 3 - Labs CBC & Chem 7: 05/03/17 08:20 05/03/17 08:20 Labs: Abnormal Lab Results - Last 24 Hours (Table) 05/03/17 05/03/17 Range/Units 08:20 08:20 WBC 11.3 H (3.8-10.6) k/uL MCV 102.6 H (80.0-100.0) fL MCHC 30.5 L (31.0-37.0) g/dL Neutrophils # 9.3 H (1.3-7.7) k/uL BUN 27 H (7-17) mg/dL Glucose 115 H (74-99) mg/dL Total Bilirubin 1.9 H (0.2-1.3) mg/dL AST 46 H (14-36) U/L Assessment and Plan Plan: Assessment Postop hernia repair laparoscopic incarcerated umbilical hernia Atrial fibrillation with RVR Severe mitral stenosis/tricuspid regurgitation History of congestive heart failure diastolic dysfunction 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 Plan Patient continues to be nothing by mouth Continue consultation with surgery and cardiology
[2017-05-03] MEDS: HYDROcodone/APAP 5-325MG 1 EACH TAB PO PRN ×2 (11:19→22:37)
--- NOTE | 2017-05-03 12:55 | XR ---
EXAMINATION TYPE: XR abdomen 1V DATE OF EXAM: 05/03/2017 12:02 PM CLINICAL HISTORY: Abdominal distention, status post open laparoscopy. TECHNIQUE: Three portable supine KUB images of the abdomen are obtained. COMPARISON: CT abdomen and pelvis from 2 days ago. FINDINGS: There are gas-distended small and large bowel loops throughout the visualized abdomen and p daniel. No suspicious calcifications are seen. Exam is suboptimal due to portable technique and patien t's large body habitus. Moderate joint space loss both hips, left greater than right with mild acetab ular spurring is present. Visualized lung bases are clear. IMPRESSION: Overall nonspecific bowel gas pattern. Favor postoperative ileus.
--- NOTE | 2017-05-03 13:26 | P.PN ---
Subjective Progress Note Date: 05/03/17 Mrs. Mills is a pleasant 67-year-old female with past medical history significant for non-ischemic cardiomyopathy, dyslipidemia, hypertension , atrial fibrillation, COPD, GERD, renal disease, current tobacco use and CVA. She sees Dr. Lawrence as an outpatient but has not followed up since 2014. She presented to the hospital yesterday with abdominal pain and was found to have an incarcerated umbilical hernia. She was taken to the OR with Dr. Mulligan and underwent laporascopic incarcerated hernia repair with mesh and resection of omentum. This morning she was found to be in atrial fibrillation with uncontrolled rapid ventricular response. Heart rate was up in the 140-150 range. Prior to surgery she was given Vitamin K for INR 1.9 as well as 2 units of fresh frozen plasma. No home medications had been resumed. She was seen sitting up in bed with family at the bedside. She denies chest pain, palpitations, dizziness, shortness of breath, nausea or vomiting. She has right sided weakness residual from previous CVA. EKG on arrival reveals atrial fibrillation with controlled ventricular response heart rate 79. Repeat done this morning is atrial fibrillation with rate 143. Echocardiogram ordered yesterday before surgery reveals impaired LV systolic function with EF 45-50%, moderately enlarged RV, severely dilated LA, severely thickened mitral valve leaflets, moderate MR with peak/mean gradients 23.74mmHg/ 10.58mmHg, severe mitral stenosis, severe tricuspid regurgitation and moderate pulmonary hypertension with RVSP 46.68mmHg. When compared to last echo in 2013 the LV function has remained the same with worsening valvular heart disease. Current cardiac home medications include coumadin 2.5mg and 5mg , lopressor 25mg BID, lasix 40mg daily and digoxin 250mcg daily. 05/03/2017 Mrs. Mills is seen today in follow-up sleeping in bed with family at the bedside. Repeat xray done this morning reveals probable post-operative ileus. Heart rate has been under control since restarting home medications. She continues to deny chest pain. Complains today of nausea and vomiting. Objective - Vital Signs Vital signs: Vital Signs Temp 97.9 F 05/03/17 07:00 Pulse 89 05/03/17 09:30 Resp 16 05/03/17 09:30 BP 102/68 05/03/17 07:00 Pulse Ox 96 05/03/17 07:00 Intake & Output 05/02/17 05/03/17 05/03/17 18:59 06:59 18:59 Weight 88.451 kg Other: Voiding Method Incontinent Bedpan Incontinent # Voids 1 5 # Bowel Movements 0 - Exam Blood pressure 102/68 heart rate 89 afebrile GENERAL: Well-appearing, well-nourished and in no acute distress. NECK: Supple without JVD or thyromegaly. LUNGS: Breath sounds clear to auscultation bilaterally. Respiration equal and unlabored. No wheezes, rales or rhonchi. Diminished. HEART: Irregular rate and rhythm with murmur at the apex, no rubs or gallops. S1 and S2 heard. EXTREMITIES: Normal range of motion, no edema. No clubbing or cyanosis. Peripheral pulses intact and strong. - Labs CBC & Chem 7: 05/03/17 08:20 05/03/17 08:20 Labs: Abnormal Lab Results - Last 24 Hours (Table) 05/03/17 05/03/17 Range/Units 08:20 08:20 WBC 11.3 H (3.8-10.6) k/uL MCV 102.6 H (80.0-100.0) fL MCHC 30.5 L (31.0-37.0) g/dL Neutrophils # 9.3 H (1.3-7.7) k/uL BUN 27 H (7-17) mg/dL Glucose 115 H (74-99) mg/dL Total Bilirubin 1.9 H (0.2-1.3) mg/dL AST 46 H (14-36) U/L Assessment and Plan Assessment: ASSESSMENT 1. Chronic persistent atrial fibrillation with controlled ventricular response 2. Idiopathic cardiomyopathy 3. Chronic systolic heart failure, currently compensated 4. Dyslipidemia 5. Hypertension 6. Severe mitral stenosis with moderate regurgitation. 7. Leukocytosis 8. Laparoscopic umbilical hernia repair postoperative day #2 PLAN Continue digoxin 250 g daily, Lasix 40 mg daily, and Lopressor 25 mg twice a day. Decrease lisinopril to 5 mg daily secondary to mild hypotension. Coumadin should be resumed as soon as is possible per surgery. Cautious fluid administration. We will continue see the patient on an as-needed basis. Please feel free to call us with any further questions or concerns. Again Coumadin should be restarted as soon as possible per surgery. Follow-up Dr. Lawrence 2-3 weeks after discharge. The above impression and plan of care have been discussed and directed by the signing physician. Dionna Walsh, nurse practitioner, acting as scribe for signing physician.
[2017-05-03] MEDS: LISINOPRIL 5 MG TAB PO SCH (13:52)
[2017-05-03] MEDS ORDERED: ONDANSETRON 4 MG/2 ML VIAL IVP PRN (14:08)
[2017-05-03] MEDS: METOCLOPRAMIDE 5 MG/ML 2 ML VIAL IVP SCH ×2 (14:25→22:37)
[2017-05-03] MEDS: HYDROmorphone 2 MG/ML 1 ML SYRINGE IVP PRN (14:25)
[2017-05-03] MEDS: AMPICILLIN-SULBACTAM 3 GM in SODIUM CHLORIDE 0.9% 100 ML IVPB SCH (15:26)
[2017-05-04] MEDS: BISACODYL 10 MG SUPP RECTAL SCH ×2 (01:00→20:00)
[2017-05-04] MEDS: HEPARIN SODIUM,PORCINE 5,000 UNIT/ML 1 ML VIAL SQ SCH ×4 (01:01→23:35)
[2017-05-04] MEDS: AMPICILLIN-SULBACTAM 3 GM in SODIUM CHLORIDE 0.9% 100 ML IVPB SCH ×4 (02:22→23:35)
[2017-05-04] MEDS: HYDROmorphone 2 MG/ML 1 ML SYRINGE IVP PRN (05:03)
[2017-05-04] MEDS: METOCLOPRAMIDE 5 MG/ML 2 ML VIAL IVP SCH ×5 (06:07→23:35)
[2017-05-04] MEDS: SODIUM CHLORIDE 0.9% 1,000 ML IV SCH ×4 (06:08→23:35)
[2017-05-04] MEDS: FUROSEMIDE 40 MG TAB PO SCH (08:07)
[2017-05-04] MEDS: DIGOXIN 250 MCG TAB PO SCH (08:07)
[2017-05-04] MEDS: PANTOPRAZOLE 40 MG/10 ML VIAL IV SCH (08:08)
[2017-05-04 08:38] LABS: Basophils % (A) 0 %; Eosinophils # (A) 0.1 k/uL (0-0.7); Eosinophils % (A) 1 %; HCT 42.8 % (34.0-46.0); HGB 13.1 gm/dL (11.4-16.0); Hypochromasia Slight; Lymphocytes # (A) 1.2 k/uL (1.0-4.8); Lymphocytes % (A) 12 %; MCH 30.8 pg (25.0-35.0); MCHC 30.7 g/dL (31.0-37.0); MCV 100.3 fL (80.0-100.0); Macrocytosis Slight; Mean Platelet Volume 8.7; Monocytes # (A) 0.5 k/uL (0-1.0); Monocytes % (A) 5 %; Neutrophils % (A) 81 %; Platelet Count 177 k/uL (150-450); RBC 4.27 m/uL (3.80-5.40); RDW 14.4 % (11.5-15.5); WBC 9.8 k/uL (3.8-10.6)
[2017-05-04] MEDS ORDERED: traMADol 50 MG TAB PO PRN (10:19)
--- NOTE | 2017-05-04 10:27 | P.PN ---
Subjective Progress Note Date: 05/04/17 67-year-old female seen and examined. More awake and alert this morning abdominal binder removed surgical site dressings dry states passing gas no bowel movement incontinently urine no nausea no vomiting patient has limited mobility secondary to a prior CVA. Has expressive asphasia with right side weakness wheelchair bedbound. Abdominal x-ray done on the suboptimal exam favors postoperative ileus Postop May 01 laparoscopic incarcerated umbilical hernia repair with mesh Objective - Vital Signs Vital signs: Vital Signs Temp 97.7 F 05/03/17 23:00 Pulse 79 05/03/17 23:00 Resp 20 05/03/17 23:00 BP 112/69 05/03/17 23:00 Pulse Ox 97 05/03/17 23:00 Intake & Output 05/03/17 05/04/17 05/04/17 18:59 06:59 18:59 Output Total 50 Balance -50 Weight 88.451 kg Output: Emesis 50 Other: Voiding Method Bedpan Incontinent # Voids 4 # Bowel Movements 0 - Exam GENERAL APPEARANCE: 67-year-old female SCAR[place] more awake and alert this morning resting in bedL SIGNS: Reviewed HEENT: Head is normocephalic and atraumatic. Pupils are equal and reactive. The nares are patent. Oropharynx is clear without lesions. NECK: Supple without lymphadenopathy. Traches midline. HEART: S1, S2. Irregular monitor atrial fibrillation controlled ventricular response heart rate in the 80s LUNGS: No crackles or wheezes are heard. Adequate air movement bilaterally 96% on 2 L ABDOMEN: Soft, slight surgical tenderness nondistended a few hypoactive bowel tones surgical dressing site dry. incontinent of urine. No stool taking ice chips patient states passing gas EXTREMITIES: Right side weakness no edema - Labs CBC & Chem 7: 05/04/17 08:16 05/03/17 08:20 Labs: Abnormal Lab Results - Last 24 Hours (Table) 05/04/17 Range/Units 08:16 MCV 100.3 H (80.0-100.0) fL MCHC 30.7 L (31.0-37.0) g/dL Neutrophils # 8.0 H (1.3-7.7) k/uL Assessment and Plan Assessment: impression postop May 01 laparoscopic incarcerated umbilical hernia repair with mesh Chronic atrial fibrillation with episodes of RVR Present on admission abdominal pain likely due to incarcerated umbilical hernia with obstruction A prior CVA with right side weakness and aphasia chronic debility wheelchair bedbound suspect due to prior CVA obesity BMI 35 Present on admission umbilical hernia with obstruction with no gangrene Echocardiogram May 01 mildly impaired left ventricular systolic function EF 45-50% with moderate pulmonary hypertension Plan Continue with cardiology recommendations Postop surgical care Pain control DVT and GI prophylaxis Further surgical recommendations pending Increase activity as tolerated wheelchair bedbound Keep nothing by mouth except ice chips and popsicles for now do not advance diet Resume home meds as appropriate PT OT eval We'll hold on starting Coumadin Soapsuds enema to be given today progress note being dictated for Dr. Mulligan The above impression and plan of care have been discussed and directed by signing physician. Mary Montanez nurse practitioner acting as scribe for signing physician.
[2017-05-04] MEDS: METOPROLOL TARTRATE 25 MG TAB PO SCH ×2 (11:48→20:00)
[2017-05-04] MEDS: LISINOPRIL 5 MG TAB PO SCH (11:48)
--- NOTE | 2017-05-04 14:34 | XR ---
EXAMINATION TYPE: XR abdomen acute w cxr DATE OF EXAM: 05/04/2017 COMPARISON: 05/01/2017 CT abdomen pelvis and 05/03/2017 abdominal radiograph. HISTORY: Abdominal pain and chest pain. Status post open laparotomy. TECHNIQUE: Single frontal chest radiograph was obtained. Upright and supine abdominal radiographs ar e obtained. FINDINGS: CHEST: The heart is enlarged. There is obscuration of the retrocardiac airspace. There is blunting of the left costophrenic angle. No pulmonary vascular congestion. Lung markings are mildly accentuated by low lung volumes. ABDOMEN: There is similar gaseous dilation of the ascending, transverse, and descending colon up to 7 .9 cm in comparison to the prior of 05/03/2017 no differential small bowel air-fluid levels are seen. No discrete pneumoperitoneum. No abnormal calcifications within the abdomen or pelvis. Osseous struct ures appear intact. IMPRESSION: 1. Similar diffuse gaseous dilation of the colon in comparison to exam of 05/03/2017. Again findings f avor colonic postop ileus. 2. Retrocardiac airspace favored to represent a small left pleural effusion and left basilar atelecta sis.
[2017-05-04 15:25] VITALS: BMI 35.6
--- NOTE | 2017-05-04 18:47 | P.PN ---
Subjective Progress Note Date: 05/04/17 Progress note being dictated for Dr. Verdugo. Interval history this is a 67-year-old female status post laparoscopic incarcerated hernia repair with mesh and resection of omentum, atrial fibrillation, severe mitral stenosis, severe tricuspid regurgitation and moderate pulmonary hypertension and multiple other medical issues. Passing flatus, no bowel movement. Abdominal x-ray suggestive of postoperative ileus. Denies chest pain, palpitations or increasing shortness of breath. Objective - Vital Signs Vital signs: Vital Signs Temp 97.0 F L 05/04/17 15:00 Pulse 83 05/04/17 15:00 Resp 18 05/04/17 15:00 BP 138/73 05/04/17 15:00 Pulse Ox 96 05/04/17 15:00 Intake & Output 05/03/17 05/04/17 05/04/17 18:59 06:59 18:59 Output Total 50 500 Balance -50 -500 Weight 88.451 kg 88.451 kg Output: Urine 500 Emesis 50 Other: Voiding Method Bedpan Bedpan Incontinent Incontinent # Voids 4 2 # Bowel Movements 0 1 - Labs CBC & Chem 7: 05/04/17 08:16 05/03/17 08:20 Labs: Abnormal Lab Results - Last 24 Hours (Table) 05/04/17 Range/Units 08:16 MCV 100.3 H (80.0-100.0) fL MCHC 30.7 L (31.0-37.0) g/dL Neutrophils # 8.0 H (1.3-7.7) k/uL Assessment and Plan Assessment: Postop hernia repair laparoscopic incarcerated umbilical hernia Atrial fibrillation with RVR Severe mitral stenosis/tricuspid regurgitation History of congestive heart failure diastolic dysfunction 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
[2017-05-05] MEDS: METOCLOPRAMIDE 5 MG/ML 2 ML VIAL IVP SCH ×3 (06:21→17:18)
[2017-05-05] MEDS: AMPICILLIN-SULBACTAM 3 GM in SODIUM CHLORIDE 0.9% 100 ML IVPB SCH ×2 (08:00→17:17)
[2017-05-05] MEDS: SODIUM CHLORIDE 0.9% 1,000 ML IV SCH (08:00)
[2017-05-05] MEDS: HEPARIN SODIUM,PORCINE 5,000 UNIT/ML 1 ML VIAL SQ SCH (08:01)
[2017-05-05] MEDS: DIGOXIN 250 MCG TAB PO SCH (08:01)
[2017-05-05] MEDS: LISINOPRIL 5 MG TAB PO SCH (08:01)
[2017-05-05] MEDS: PANTOPRAZOLE 40 MG/10 ML VIAL IV SCH (08:01)
[2017-05-05] MEDS: FUROSEMIDE 40 MG TAB PO SCH (08:01)
[2017-05-05] MEDS: METOPROLOL TARTRATE 25 MG TAB PO SCH ×2 (08:01→20:02)
[2017-05-05 08:48] LABS: Basophils % (A) 0 %; Eosinophils % (A) 0 %; HCT 41.8 % (34.0-46.0); HGB 13.2 gm/dL (11.4-16.0); Lymphocytes # (A) 0.9 k/uL (1.0-4.8); Lymphocytes % (A) 9 %; MCH 31.2 pg (25.0-35.0); MCHC 31.5 g/dL (31.0-37.0); MCV 98.8 fL (80.0-100.0); Mean Platelet Volume 7.8; Monocytes # (A) 0.4 k/uL (0-1.0); Monocytes % (A) 5 %; Neutrophils # (A) 7.8 k/uL (1.3-7.7); Neutrophils % (A) 84 %; Platelet Count 187 k/uL (150-450); RBC 4.23 m/uL (3.80-5.40); RDW 13.1 % (11.5-15.5); WBC 9.2 k/uL (3.8-10.6)
[2017-05-05 09:14] LABS: ALT 42 U/L (9-52); AST 34 U/L (14-36); Albumin 3.1 g/dL (3.5-5.0); Alkaline Phosphatase 95 U/L (38-126); Anion Gap 10 mmol/L; Blood Urea Nitrogen 23 mg/dL (7-17); Calcium 8.7 mg/dL (8.4-10.2); Carbon Dioxide 29 mmol/L (22-30); Chloride 107 mmol/L (98-107); Glucose 81 mg/dL (74-99); Potassium 3.4 mmol/L (3.5-5.1); Sodium 146 mmol/L (137-145); Total Bilirubin 1.2 mg/dL (0.2-1.3); Total Protein 6.1 g/dL (6.3-8.2)
[2017-05-05] MEDS ORDERED: Potassium Replacement Protocol 1 EACH MISC MISCELLANE PRN (11:16)
--- NOTE | 2017-05-05 11:17 | P.PN ---
Subjective 67-year-old female status post laparoscopic incarcerated hernia repair with mesh and resection of omentum, atrial fibrillation, severe mitral stenosis, severe tricuspid regurgitation and moderate pulmonary hypertension and multiple other medical issues. Passing flatus, no bowel movement. Abdominal x-ray suggestive of postoperative ileus. 05/05/2017: Patient is clinically doing well nonverbal at her baseline because aphasia from her previous strokes patient will be resumed on Coumadin at 3 mg repeat INR tomorrow and a CBC basic metabolic profile tomorrow. Discussed with surgery Denies chest pain, palpitations or increasing shortness of breath. Objective - Vital Signs Vital signs: Vital Signs Temp 97.1 F L 05/05/17 07:00 Pulse 87 05/05/17 07:00 Resp 16 05/05/17 07:00 BP 138/71 05/05/17 07:00 Pulse Ox 97 05/05/17 07:00 Intake & Output 05/04/17 05/05/17 05/05/17 18:59 06:59 18:59 Intake Total 0 Output Total 500 Balance -500 0 Weight 88.451 kg Intake: Oral 0 Output: Urine 500 Other: Voiding Method Bedpan Bedpan Incontinent Incontinent # Voids 2 3 # Bowel Movements 1 - Exam PHYSICAL EXAMINATION: GENERAL: The patient is alert and on verbal due to pre-her previous strokes, not in any acute distress. Well developed, well nourished. HEENT: Pupils are round and equally reacting to light. EOMI. No scleral icterus. No conjunctival pallor. Normocephalic, atraumatic. No pharyngeal erythema. No thyromegaly. CARDIOVASCULAR: S1 and S2 present. No murmurs, rubs, or gallops. PULMONARY: Chest is clear to auscultation, no wheezing or crackles. ABDOMEN: Soft, nontender, nondistended, normoactive bowel sounds. No palpable organomegaly. MUSCULOSKELETAL: No joint swelling or deformity. EXTREMITIES: No cyanosis, clubbing, or pedal edema. NEUROLOGICAL: Gross neurological examination did not reveal any new focal deficits focal deficits, but she does have previous deficits including dysphagia aphasia and weakness. SKIN: No rashes. - Labs CBC & Chem 7: 05/05/17 08:09 05/05/17 08:09 Labs: Abnormal Lab Results - Last 24 Hours (Table) 05/05/17 05/05/17 Range/Units 08:09 08:09 Neutrophils # 7.8 H (1.3-7.7) k/uL Lymphocytes # 0.9 L (1.0-4.8) k/uL Sodium 146 H (137-145) mmol/L Potassium 3.4 L (3.5-5.1) mmol/L BUN 23 H (7-17) mg/dL Total Protein 6.1 L (6.3-8.2) g/dL Albumin 3.1 L (3.5-5.0) g/dL Assessment and Plan Plan: 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
--- NOTE | 2017-05-05 11:48 | P.PN ---
Subjective Progress Note Date: 05/05/17 Principal diagnosis: Bowel obstruction Patient doing better at this time. Minimal abdominal pain. She states she had a small bowel movement. She is hungry. Objective - Vital Signs Vital signs: Vital Signs Temp 97.1 F L 05/05/17 07:00 Pulse 87 05/05/17 07:00 Resp 16 05/05/17 07:00 BP 138/71 05/05/17 07:00 Pulse Ox 97 05/05/17 07:00 Intake & Output 05/04/17 05/05/17 05/05/17 18:59 06:59 18:59 Intake Total 0 Output Total 500 Balance -500 0 Weight 88.451 kg Intake: Oral 0 Output: Urine 500 Other: Voiding Method Bedpan Bedpan Incontinent Incontinent # Voids 2 3 # Bowel Movements 1 - Exam Abdomen: Soft, nondistended, minimal incisional tenderness, incisions clean and dry - Labs CBC & Chem 7: 05/05/17 08:09 05/05/17 08:09 Labs: Abnormal Lab Results - Last 24 Hours (Table) 05/05/17 05/05/17 Range/Units 08:09 08:09 Neutrophils # 7.8 H (1.3-7.7) k/uL Lymphocytes # 0.9 L (1.0-4.8) k/uL Sodium 146 H (137-145) mmol/L Potassium 3.4 L (3.5-5.1) mmol/L BUN 23 H (7-17) mg/dL Total Protein 6.1 L (6.3-8.2) g/dL Albumin 3.1 L (3.5-5.0) g/dL Assessment and Plan (1) Umbilical hernia with obstruction but no gangrene Narrative/Plan: Will begin liquid diet. Increase activity level. Will follow. Current Visit: Yes Status: Acute Code(s): K42.0 - UMBILICAL HERNIA WITH OBSTRUCTION, WITHOUT GANGRENE SNOMED Code(s): 668538589
[2017-05-05 12:25] LABS: Glucose,Whole Blood 83 mg/dL (75-99)
[2017-05-05] MEDS: POTASSIUM CHLORIDE ER 20 MEQ TAB.ER PO SCH ×4 (12:29→18:34)
[2017-05-05 12:51] LABS: INR 1.3 (<1.2); Prothrombin Time 12.2 sec (9.0-12.0)
[2017-05-05] MEDS: WARFARIN 3 MG TAB PO SCH (17:18)
[2017-05-05] MEDS: BISACODYL 10 MG SUPP RECTAL SCH (20:02)
[2017-05-06] MEDS: AMPICILLIN-SULBACTAM 3 GM in SODIUM CHLORIDE 0.9% 100 ML IVPB SCH ×4 (00:08→23:36)
[2017-05-06] MEDS: METOCLOPRAMIDE 5 MG/ML 2 ML VIAL IVP SCH ×5 (00:09→23:37)
[2017-05-06] MEDS: PANTOPRAZOLE 40 MG/10 ML VIAL IV SCH (07:43)
[2017-05-06] MEDS: LISINOPRIL 5 MG TAB PO SCH (07:43)
[2017-05-06] MEDS: FUROSEMIDE 40 MG TAB PO SCH (07:43)
[2017-05-06] MEDS: DIGOXIN 250 MCG TAB PO SCH (07:43)
[2017-05-06] MEDS: METOPROLOL TARTRATE 25 MG TAB PO SCH ×2 (07:43→21:11)
[2017-05-06 08:02] LABS: HCT 44.4 % (34.0-46.0); HGB 13.4 gm/dL (11.4-16.0); Hypochromasia Moderate; MCH 30.2 pg (25.0-35.0); MCHC 30.1 g/dL (31.0-37.0); MCV 100.2 fL (80.0-100.0); Macrocytosis Slight; Mean Platelet Volume 8.2; Platelet Count 182 k/uL (150-450); RBC 4.43 m/uL (3.80-5.40); RDW 14.5 % (11.5-15.5); WBC 7.8 k/uL (3.8-10.6)
[2017-05-06 08:11] LABS: INR 1.3 (<1.2); Prothrombin Time 12.5 sec (9.0-12.0)
[2017-05-06 08:26] LABS: Anion Gap 10 mmol/L; Blood Urea Nitrogen 20 mg/dL (7-17); Calcium 8.9 mg/dL (8.4-10.2); Carbon Dioxide 28 mmol/L (22-30); Chloride 107 mmol/L (98-107); Glucose 93 mg/dL (74-99); Magnesium 1.9 mg/dL (1.6-2.3); Potassium 3.7 mmol/L (3.5-5.1); Sodium 145 mmol/L (137-145)
--- NOTE | 2017-05-06 12:02 | P.PN ---
Subjective Progress Note Date: 05/06/17 Principal diagnosis: Bowel obstruction Patient complains of mild bloating. No nausea. Appetite diminished. She did have a small bowel movement. White blood cell count is normal. Objective - Vital Signs Vital signs: Vital Signs Temp 97.8 F 05/06/17 07:00 Pulse 86 05/06/17 07:00 Resp 16 05/06/17 08:00 BP 133/94 05/06/17 07:00 Pulse Ox 98 05/06/17 07:00 Intake & Output 05/05/17 05/06/17 05/06/17 18:59 06:59 18:59 Intake Total 700 Balance 700 Intake: Oral 700 Other: Voiding Method Bedpan Bedpan Bedpan # Voids 2 2 # Bowel Movements 1 - Exam Abdomen: Soft, mild distention, minimal tenderness, incision clean and dry with scant drainage inferiorly - Labs CBC & Chem 7: 05/06/17 07:23 05/06/17 07:23 Labs: Abnormal Lab Results - Last 24 Hours (Table) 05/05/17 05/05/17 05/06/17 Range/Units 12:10 16:00 07:23 MCV 100.2 H (80.0-100.0) fL MCHC 30.1 L (31.0-37.0) g/dL PT 12.2 H (9.0-12.0) sec INR 1.3 H (<1.2) Potassium 3.4 L (3.5-5.1) mmol/L BUN (7-17) mg/dL 05/06/17 05/06/17 Range/Units 07:23 07:23 MCV (80.0-100.0) fL MCHC (31.0-37.0) g/dL PT 12.5 H (9.0-12.0) sec INR 1.3 H (<1.2) Potassium (3.5-5.1) mmol/L BUN 20 H (7-17) mg/dL Assessment and Plan (1) Umbilical hernia with obstruction but no gangrene Narrative/Plan: Will advance diet. Increase activity levels. Await placement. Current Visit: Yes Status: Acute Code(s): K42.0 - UMBILICAL HERNIA WITH OBSTRUCTION, WITHOUT GANGRENE SNOMED Code(s): 123173193
--- NOTE | 2017-05-06 12:51 | P.PN ---
Subjective 67-year-old female status post laparoscopic incarcerated hernia repair with mesh and resection of omentum, atrial fibrillation, severe mitral stenosis, severe tricuspid regurgitation and moderate pulmonary hypertension and multiple other medical issues. Passing flatus, no bowel movement. Abdominal x-ray suggestive of postoperative ileus. 05/05/2017: Patient is clinically doing well nonverbal at her baseline because aphasia from her previous strokes patient will be resumed on Coumadin at 3 mg repeat INR tomorrow and a CBC basic metabolic profile tomorrow. Discussed with surgery 05/06/2017 patient is clinically stable but does have some crackles on lung exam because of which I'm obtaining a chest x-ray to rule out any pulmonary edema Denies chest pain, palpitations or increasing shortness of breath. Objective - Vital Signs Vital signs: Vital Signs Temp 97.8 F 05/06/17 07:00 Pulse 86 05/06/17 07:00 Resp 16 05/06/17 08:00 BP 133/94 05/06/17 07:00 Pulse Ox 98 05/06/17 07:00 Intake & Output 05/05/17 05/06/17 05/06/17 18:59 06:59 18:59 Intake Total 700 Balance 700 Intake: Oral 700 Other: Voiding Method Bedpan Bedpan Bedpan # Voids 2 2 # Bowel Movements 1 - Exam PHYSICAL EXAMINATION: GENERAL: The patient is alert and on verbal due to pre-her previous strokes, not in any acute distress. Well developed, well nourished. HEENT: Pupils are round and equally reacting to light. EOMI. No scleral icterus. No conjunctival pallor. Normocephalic, atraumatic. No pharyngeal erythema. No thyromegaly. CARDIOVASCULAR: S1 and S2 present. No murmurs, rubs, or gallops. PULMONARY: Chest is clear to auscultation, no wheezing minimal crackles on lung exam ABDOMEN: Soft, nontender, nondistended, normoactive bowel sounds. No palpable organomegaly. MUSCULOSKELETAL: No joint swelling or deformity. EXTREMITIES: No cyanosis, clubbing, or pedal edema. NEUROLOGICAL: Gross neurological examination did not reveal any new focal deficits focal deficits, but she does have previous deficits including dysphagia aphasia and weakness. SKIN: No rashes. - Labs CBC & Chem 7: 05/06/17 07:23 05/06/17 07:23 Labs: Abnormal Lab Results - Last 24 Hours (Table) 05/05/17 05/05/17 05/06/17 Range/Units 12:10 16:00 07:23 MCV 100.2 H (80.0-100.0) fL MCHC 30.1 L (31.0-37.0) g/dL PT 12.2 H (9.0-12.0) sec INR 1.3 H (<1.2) Potassium 3.4 L (3.5-5.1) mmol/L BUN (7-17) mg/dL 05/06/17 05/06/17 Range/Units 07:23 07:23 MCV (80.0-100.0) fL MCHC (31.0-37.0) g/dL PT 12.5 H (9.0-12.0) sec INR 1.3 H (<1.2) Potassium (3.5-5.1) mmol/L BUN 20 H (7-17) mg/dL Assessment and Plan Plan: 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
--- NOTE | 2017-05-06 13:14 | XR ---
EXAMINATION TYPE: XR chest 1V DATE OF EXAM: 05/06/2017 HISTORY: r/o Pul edema. REFERENCE: Previous study dated 01/10/2017. FINDINGS: The heart is enlarged. The lungs are clear. There is blunting of both CP angles. IMPRESSION: 1. CARDIOMEGALY. 2. I COULD NOT EXCLUDE SMALL, BILATERAL EFFUSIONS.
[2017-05-06] MEDS: WARFARIN 3 MG TAB PO SCH (17:33)
[2017-05-06] MEDS: BISACODYL 10 MG SUPP RECTAL SCH (20:52)
[2017-05-07] MEDS: METOCLOPRAMIDE 5 MG/ML 2 ML VIAL IVP SCH (06:34)
[2017-05-07 07:30] VITALS: BP 145/77; PULSE 69; RESP 18; TEMP 96.5
[2017-05-07] MEDS: FUROSEMIDE 40 MG TAB PO SCH (08:12)
[2017-05-07] MEDS: DIGOXIN 250 MCG TAB PO SCH (08:12)
[2017-05-07] MEDS: AMPICILLIN-SULBACTAM 3 GM in SODIUM CHLORIDE 0.9% 100 ML IVPB SCH (08:12)
[2017-05-07] MEDS: METOPROLOL TARTRATE 25 MG TAB PO SCH (08:12)
[2017-05-07] MEDS: LISINOPRIL 5 MG TAB PO SCH (08:12)
[2017-05-07] MEDS: PANTOPRAZOLE 40 MG/10 ML VIAL IV SCH (08:12)
[2017-05-07 08:28] LABS: INR 1.5 (<1.2); Prothrombin Time 13.6 sec (9.0-12.0)
--- NOTE | 2017-05-07 09:50 | P.PN ---
Subjective Progress Note Date: 05/07/17 67-year-old female seen and examined sitting on the edge of the bed this morning increasingly more awake and alert. Patient reports that she's had 2 small bowel movements last night. Currently denying dizziness lightheadedness chest pain or shortness of breath. Chest x-ray obtained yesterday lungs are clear could not exclude small bilateral effusions. Pulse ox document this morning 100% on 2 L patient is tolerating a diet. Postop May 01 laparoscopic incarcerated umbilical hernia repair with mesh Objective - Vital Signs Vital signs: Vital Signs Temp 96.5 F L 05/07/17 07:00 Pulse 69 05/07/17 07:00 Resp 18 05/07/17 07:00 BP 145/77 05/07/17 07:00 Pulse Ox 99 05/07/17 07:00 Intake & Output 05/06/17 05/07/17 05/07/17 18:59 06:59 18:59 Other: Voiding Method Bedside Commode Bedside Commode # Voids 2 1 # Bowel Movements 2 - Exam Physical exam 67-year-old female sitting up on the edge of the bed. Does have expressive aphasia from a prior CVA Lungs diminished at the bases otherwise adequate air movement bilaterally no cough noted Heart S1-S2 audible and irregular Abdomen surgical sites no redness dressings removed no facial grimacing to palpitation to the abdominal wall no nausea no vomiting urinating no difficulty states had 2 small stools yesterday Extremities no edema noted - Labs CBC & Chem 7: 05/06/17 07:23 05/06/17 07:23 Labs: Abnormal Lab Results - Last 24 Hours (Table) 05/07/17 Range/Units 07:51 PT 13.6 H (9.0-12.0) sec INR 1.5 H (<1.2) Assessment and Plan Assessment: impression postop May 01 laparoscopic incarcerated umbilical hernia repair with mesh Chronic atrial fibrillation with episodes of RVR on Coumadin Present on admission abdominal pain likely due to incarcerated umbilical hernia with obstruction A prior CVA with right side weakness and aphasia chronic debility wheelchair bedbound suspect due to prior CVA obesity BMI 35 Present on admission umbilical hernia with obstruction with no gangrene Echocardiogram May 01 mildly impaired left ventricular systolic function EF 45-50% with moderate pulmonary hypertension Plan Cardiology has signed off no further recommendations Postop surgical care Pain control DVT and GI prophylaxis Further surgical recommendations pending Increase activity as tolerated wheelchair bedbound Coumadin dosing per INR From a surgical perspective patient is felt to be clinically stable and appropriate to proceed with a discharge follow-up outpatient setting defer to the timing of the discharge to the attending Resume home meds as appropriate PT OT eval No antibiotics are indicated at the time of discharge progress note being dictated for Dr. Mulligan The above impression and plan of care have been discussed and directed by signing physician. Mary Montanez nurse practitioner acting as scribe for signing physician.
[2017-05-07] MEDS ORDERED: METOCLOPRAMIDE 5 MG/ML 2 ML VIAL IVP PRN (09:53)
[2017-05-07] MEDS ORDERED: NA PHOS,M-B/NA PHOS,DI-BA 133 ML ENEMA RECTAL ONE (11:02)
--- NOTE | 2017-05-07 13:50 | P.DS ---
Providers Date of admission: 05/01/17 08:05 Attending physician: Du Lancaster Consults: 05/01/17 08:05 Consult Physician Stat Consulting Provider: Josette Mulligan Consult Reason/Comments: Incarcerated hernia Do you want consulting provider notified?: Already Contacted 05/02/17 08:26 Consult Physician Routine Consulting Provider: [facility] Consult Reason/Comments: afib RVR, history of afib Do you want consulting provider notified?: Yes Primary care physician: Du Lancaster Hospital Course: 67-year-old female status post laparoscopic incarcerated hernia repair with mesh and resection of omentum, atrial fibrillation, severe mitral stenosis, severe tricuspid regurgitation and moderate pulmonary hypertension and multiple other medical issues. Passing flatus, no bowel movement. Abdominal x-ray suggestive of postoperative ileus. 05/05/2017: Patient is clinically doing well nonverbal at her baseline because aphasia from her previous strokes patient will be resumed on Coumadin at 3 mg repeat INR tomorrow and a CBC basic metabolic profile tomorrow. Discussed with surgery 05/06/2017 patient is clinically stable but does have some crackles on lung exam because of which I'm obtaining a chest x-ray to rule out any pulmonary edema 05/07/2017 Patient is fairly stable is being discharged today patient doesn't want to go to subacute rehabitation wanted to go to assisted living with home care. PHYSICAL EXAMINATION: GENERAL: The patient is alert and on verbal due to pre-her previous strokes, not in any acute distress. Well developed, well nourished. HEENT: Pupils are round and equally reacting to light. EOMI. No scleral icterus. No conjunctival pallor. Normocephalic, atraumatic. No pharyngeal erythema. No thyromegaly. CARDIOVASCULAR: S1 and S2 present. No murmurs, rubs, or gallops. PULMONARY: Chest is clear to auscultation, no wheezing minimal crackles on lung exam ABDOMEN: Soft, nontender, nondistended, normoactive bowel sounds. No palpable organomegaly. MUSCULOSKELETAL: No joint swelling or deformity. EXTREMITIES: No cyanosis, clubbing, or pedal edema. NEUROLOGICAL: Gross neurological examination did not reveal any new focal deficits focal deficits, but she does have previous deficits including dysphagia aphasia and weakness. SKIN: No rashes. 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 Plan - Discharge Summary Discharge Rx Participant: No New Discharge Prescriptions: New Lisinopril [Zestril] 5 mg PO DAILY #30 tab Omeprazole [PriLOSEC] 20 mg PO AC-BRKFST #15 cap traMADol HCl [Ultram] 100 mg PO QID PRN #30 tab PRN Reason: Moderate Pain Warfarin [Coumadin] 3 mg PO DAILY@1800 #30 tab Continue Furosemide [Lasix] 40 mg PO DAILY Digoxin [Lanoxin] 250 mcg PO DAILY #30 tab Metoprolol Tartrate [Lopressor] 25 mg PO BID #60 tab Tiotropium Chestnut [Spiriva] 1 cap INHALATION RT-DAILY Budesonide-Formot 160-4.5 Mcg [Symbicort 160-4.5 Mcg Inhaler] 2 puff INHALATION RT-BID Albuterol Inhaler [Ventolin Hfa Inhaler] 1 - 2 puff INHALATION RT-Q6H PRN PRN Reason: Shortness Of Breath Or Wheezing Discontinued Warfarin [Coumadin] 5 mg PO SUTUTHSA Warfarin [Coumadin] 2.5 mg PO MOWEFR Discharge Medication List Furosemide [Lasix] 40 mg PO DAILY 03/31/15 [History] Digoxin [Lanoxin] 250 mcg PO DAILY #30 tab 04/27/15 [Rx] Metoprolol Tartrate [Lopressor] 25 mg PO BID #60 tab 04/27/15 [Rx] Albuterol Inhaler [Ventolin Hfa Inhaler] 1 - 2 puff INHALATION RT-Q6H PRN [History] Budesonide-Formot 160-4.5 Mcg [Symbicort 160-4.5 Mcg Inhaler] 2 puff INHALATION RT-BID 05/01/17 [History] Tiotropium Chestnut [Spiriva] 1 cap INHALATION RT-DAILY 05/01/17 [History] Lisinopril [Zestril] 5 mg PO DAILY #30 tab 05/07/17 [Rx] Omeprazole [PriLOSEC] 20 mg PO AC-BRKFST #15 cap 05/07/17 [Rx] Warfarin [Coumadin] 3 mg PO DAILY@1800 #30 tab 05/07/17 [Rx] traMADol HCl [Ultram] 100 mg PO QID PRN #30 tab 05/07/17 [Rx] Follow up Appointment(s)/Referral(s): Du Lancaster MD [Primary Care Provider] - 3 Days [facility], [NON-STAFF] - Josette Mulligan MD [STAFF PHYSICIAN] - 3 Days Patient Instructions/Handouts: Umbilical Hernia (DC) Activity/Diet/Wound Care/Special Instructions: No tub bath for six weeks. Shower daily. No lifting over 10 pounds for the next 6 weeks. Monitor RICHAR drain and record. May use ice packs to surgical site. No driving while taking narcotic for pain. Discharge Disposition: TRANSFER TO SNF/ECF
[2017-05-08] MEDS ORDERED: PANTOPRAZOLE 40 MG TABLET PO SCH (07:30)
--- NOTE | 2017-05-08 14:56 | CDI ---
Last Revision, March 2017 Documentation Clarification Form Date: 05/08/2017 2:36:00 PM From: Fallon Sargent Admit Date: 05/01/2017 8:05:00 AM Patient Name: Azul Mills Visit Number: [id number] Discharge Date: ATTENTION: The Clinical Documentation Specialists (CDI) and [facility] Coding Staff appreciate your assistance in clarifying documentation. Please respond to the clarification below the line at the bottom and electronically sign. The CDI & [facility] Coding staff will review the response and follow-up if needed. Please note: Queries are made part of the Legal Health Record. If you have any questions, please contact the author of this message via ITS. Dr. Raulito Bosch Chronic systolic heart failure, currently compensated is documented on consult 05/03 and pn 05/03 History of congestive heart failure diastolic dysfunction is documented on the H &P, several progress notes, procedure note, and dc summary Echocardiogram Results: Echocardiogram ordered yesterday before surgery reveals impaired LV systolic function with EF 45-50%, moderately enlarged RV, severely dilated LA, severely thickened mitral valve leaflets, moderate MR with peak/ mean gradients 23.74mmHg/10.58mmHg, severe mitral stenosis, severe tricuspid regurgitation and moderate pulmonary hypertension with RVSP 46.68mmHg. Patient on Lasix, digoxin, and Lopressor In your professional opinion, can you please clarify the acuity and type of CHF if known? Systolic Heart Failure: Acute Chronic Acute on Chronic Diastolic Heart Failure: Acute Chronic Acute on Chronic Systolic & Diastolic Heart Failure: Acute Chronic Acute on Chronic Heart Failure Unable to Determine Other, please specify Please continue to document in your progress notes and discharge summary in order to capture severity of illness and risk of mortality. Include clinical findings that support your diagnosis. chronic systolic almeida failure MTDD
== END 2017-05-07 14:45 | disposition home health service (06) | DRG 354 ==
LOC: EC 04:40 → 4MS4W 08:05
PROVIDERS: ADMIT Family Medicine; ATTEND Family Medicine
PROC: 0WUF4JZ Supplement Abdominal Wall with Synthetic Substitute, Percutaneous Endoscopic Approach (ICD-10-PCS; principal; 2017-05-01 10:35)
DX: K42.0 Umbilical hernia with obstruction, without gangrene (principal); I69.351 Hemiplegia and hemiparesis following cerebral infarction affecting right dominant side; I11.0 Hypertensive heart disease with heart failure; I27.20 Pulmonary hypertension, unspecified; I08.1 Rheumatic disorders of both mitral and tricuspid valves; E66.01 Morbid (severe) obesity due to excess calories; I48.2 Chronic atrial fibrillation; I50.22 Chronic systolic (congestive) heart failure; I48.1 Persistent atrial fibrillation; L03.115 Cellulitis of right lower limb; N39.0 Urinary tract infection, site not specified; I42.9 Cardiomyopathy, unspecified; K56.7 Ileus, unspecified; J44.9 Chronic obstructive pulmonary disease, unspecified; K21.9 Gastro-esophageal reflux disease without esophagitis; E78.5 Hyperlipidemia, unspecified; M19.90 Unspecified osteoarthritis, unspecified site; R47.02 Dysphasia; I69.320 Aphasia following cerebral infarction; Z79.01 Long term (current) use of anticoagulants; Z79.899 Other long term (current) drug therapy; Z79.51 Long term (current) use of inhaled steroids; Z80.3 Family history of malignant neoplasm of breast; Z72.0 Tobacco use; Z87.01 Personal history of pneumonia (recurrent); Z87.440 Personal history of urinary (tract) infections; Z90.89 Acquired absence of other organs; Z68.35 Body mass index [BMI] 35.0-35.9, adult; Z99.3 Dependence on wheelchair; Z74.01 Bed confinement status
CPT/HCPCS: 36415; 71045; 74018; 74022; 74176; 80048; 80053; 81001; 82150; 83690; 83735; 84132; 85025; 85027; 85610; 85730; 86850; 86900; 86901; 93005; 93306; 96361; 96365; 96374; 96375; 99285

== ENCOUNTER → 2017-05-15 | Outpatient (CLI) | payer MEDICARE ==
--- NOTE | 2017-05-15 16:32 | US ---
EXAMINATION TYPE: US venous doppler duplex LE DATE OF EXAM: 05/15/2017 4:11 PM COMPARISON: US 2014 CLINICAL HISTORY: Edema of upper ext R60.0/Edema of lower ext R60.0. Bilateral leg swelling x 2 weeks , patient on blood thinners SIDE PERFORMED: Bilateral TECHNIQUE: The lower extremity deep venous system is examined utilizing real time linear array sonog joaquin with graded compression, doppler sonography and color-flow sonography. VESSELS IMAGED: External Iliac Vein (EIV) Common Femoral Vein Deep Femoral Vein Greater Saphenous Vein * Femoral Vein Popliteal Vein Small Saphenous Vein * Proximal Calf Veins (* superficial vessels) Right Leg: Appears negative for DVT Left Leg: Appears negative for DVT Grayscale, color doppler, spectral doppler imaging performed of the deep veins of the lower extremiti es. There is normal flow, compressibility, vascular waveforms. IMPRESSION: No sonographic evidence of deep venous arthrosis within either lower extremity.
--- NOTE | 2017-05-15 16:35 | US ---
EXAMINATION TYPE: US venous doppler duplex UE RT DATE OF EXAM: 05/15/2017 COMPARISON: NONE CLINICAL HISTORY: Edema of upper ext R60.0/Edema of lower ext R60.0. Right arm swelling x 2 weeks, pa tient on blood thinners SIDE PERFORMED: Right Right Arm: Appears negative for DVT Grayscale, color doppler, spectral doppler imaging performed of the deep veins of the upper extremiti es. There is normal flow, compressibility and vascular waveforms. IMPRESSION: No sonographic evidence of deep venous arthrosis within the right upper extremity.
== END | disposition home or self-care (01) ==
LOC: RADUSMAIN 15:13
PROVIDERS: ATTEND Family Medicine
DX: R60.0 Localized edema (principal)
CPT/HCPCS: 85610; 93970

== ENCOUNTER 2017-08-17 12:17 | Inpatient (IN) | payer MEDICARE ==
[2017-08-17] MEDS ORDERED: IPRATROPIUM-ALBUTEROL 3 ML NEB INHALATION STA (12:33)
[2017-08-17] MEDS ORDERED: AZITHROMYCIN 500 MG in SODIUM CHLORIDE 0.9% 250 ML IVPB STA (12:33)
[2017-08-17] MEDS ORDERED: SODIUM CHLORIDE 0.9% 1,000 ML IV STA (12:33)
[2017-08-17] MEDS ORDERED: SODIUM CHLORIDE 0.9% 500 ML IV STA (12:33)
--- NOTE | 2017-08-17 12:50 | ED ---
General Adult HPI - General Chief complaint: Shortness of Breath Stated complaint: SOB, fever Time Seen by Provider: 08/17/17 12:33 Source: patient, RN notes reviewed, old records reviewed, Caregiver Mode of arrival: ambulatory Limitations: no limitations - History of Present Illness Initial comments: This is a 71-year-old female the ER for evaluation. Patient has a for evaluation regarding shortness of breath, fever. Patient has history of severe CVA, poor historian secondary to inability to talk. Neighbor is at bedside and states patient had some difficulty: Last night she is having significant difficulty breathing and sleeping. Patient states these symptoms have persisted , she did have fever shortness of breath starting yesterday and it just got worse over today. Patient now complains of no pain. Difficulty breathing - Related Data Home Medications Medication Instructions Recorded Confirmed Furosemide [Lasix] 40 mg PO DAILY 03/31/15 08/17/17 Albuterol Inhaler [Ventolin Hfa 1 - 2 puff INHALATION RT-Q6H PRN 05/01/17 Inhaler] Budesonide-Formot 160-4.5 Mcg 2 puff INHALATION RT-BID 05/01/17 08/17/17 [Symbicort 160-4.5 Mcg Inhaler] Tiotropium Kim [Spiriva] 1 cap INHALATION RT-DAILY 05/01/17 08/17/17 Albuterol Nebulized [Ventolin 2.5 mg INHALATION RT-QID PRN 08/17/17 08/17/17 Nebulized] Hydrochlorothiazide [Hydrodiuril] 25 mg PO DAILY 08/17/17 08/17/17 Warfarin [Coumadin] 5 mg PO DIRECTED 08/17/17 08/17/17 Previous Rx's Medication Instructions Recorded Digoxin [Lanoxin] 250 mcg PO DAILY #30 tab 04/27/15 Metoprolol Tartrate [Lopressor] 25 mg PO BID #60 tab 04/27/15 Allergies Allergy/AdvReac Type Severity Reaction Status Date / Time No Known Allergies Allergy Verified 08/17/17 12:59 Review of Systems ROS Statement: Those systems with pertinent positive or pertinent negative responses have been documented in the HPI. ROS Other: All systems not noted in ROS Statement are negative. Past Medical History Past Medical History: Unable to Obtain, Atrial Fibrillation, Chest Pain / Angina , COPD, CVA/TIA, GERD/Reflux, Hyperlipidemia, Hypertension, Osteoarthritis (OA) , Pneumonia, Renal Disease Additional Past Medical History / Comment(s): CVA ub 2002 with R sided weakness of arm/leg and dysphasia, Afib with RVR, tircuspid regurgitation, head injury, DJD, occasional back pain, CRD, UTIs, kidney infections, anemia, bronchitis. History of Any Multi-Drug Resistant Organisms: None Reported Past Surgical History: Section, Hernia Repair, Orthopedic Surgery, Tonsillectomy Additional Past Surgical History / Comment(s): X2, L tibial IM nailing , recent teeth extractions in preparation for dentures. Past Anesthesia/Blood Transfusion Reactions: No Reported Reaction Past Psychological History: No Psychological Hx Reported Smoking Status: Current every day smoker Past Alcohol Use History: None Reported Past Drug Use History: None Reported - Past Family History Father Family Medical History: Unable to Obtain Additional Family Medical History / Comment(s): FATHER WAS HEALTHY AND LIVED TO BE 96YRS OLD. Mother Family Medical History: Unable to Obtain Additional Family Medical History / Comment(s): MOTHER HAD BREAST CANCER. General Exam Limitations: no limitations Course Vital Signs 08/17/17 08/17/17 08/17/17 12:18 12:43 12:53 Temperature 100.5 F H Pulse Rate 124 H 106 H 104 H Respiratory 22 Rate Blood Pressure 127/75 O2 Sat by Pulse 95 Oximetry 08/17/17 08/17/17 13:03 13:51 Temperature 100.0 F H Pulse Rate 96 102 H Respiratory 20 20 Rate Blood Pressure 134/84 O2 Sat by Pulse 96 96 Oximetry - Reevaluation(s) Reevaluation #1: 08/17/17 13:30 Patient is having a synthetic improvement after breathing treatment, rate control and IV hydration EKG Findings - EKG Comments: EKG Findings:: EKG shows A. fib with RVR rate 1:30, QRS 90, QTc 426 Medical Decision Making - Medical Decision Making 67 female the ER for evaluation, positive shortness of breath, fever. Patient will be admitted for IV antibiotics, treatment of COPD and control of A. fib with RVR. Patient does have significant urinary tract infection with sepsis, positive influenza - Lab Data Result diagrams: 08/17/17 12:45 08/17/17 12:45 Lab Results 08/17/17 08/17/17 08/17/17 Range/Units 12:45 12:45 12:45 WBC 9.1 (3.8-10.6) k/uL RBC 4.76 (3.80-5.40) m/uL Hgb 14.6 (11.4-16.0) gm/dL Hct 45.4 (34.0-46.0) % MCV 95.4 (80.0-100.0) fL MCH 30.6 (25.0-35.0) pg MCHC 32.1 (31.0-37.0) g/dL RDW 13.4 (11.5-15.5) % Plt Count 176 (150-450) k/uL Neutrophils % 88 % Lymphocytes % 6 % Monocytes % 4 % Eosinophils % 1 % Basophils % 0 % Neutrophils # 8.0 H (1.3-7.7) k/uL Lymphocytes # 0.6 L (1.0-4.8) k/uL Monocytes # 0.4 (0-1.0) k/uL Eosinophils # 0.1 (0-0.7) k/uL Basophils # 0.0 (0-0.2) k/uL Sodium 142 (137-145) mmol/L Potassium 4.2 (3.5-5.1) mmol/L Chloride 102 (98-107) mmol/L Carbon Dioxide 26 (22-30) mmol/L Anion Gap 14 mmol/L BUN 15 (7-17) mg/dL Creatinine 0.71 (0.52-1.04) mg/dL Est GFR (CKD-EPI)AfAm >90 (>60 ml/min/1.73 sqM) Est GFR (CKD-EPI)NonAf 89 (>60 ml/min/1.73 sqM) Glucose 152 H (74-99) mg/dL Calcium 9.4 (8.4-10.2) mg/dL Magnesium 1.8 (1.6-2.3) mg/dL Total Bilirubin 1.6 H (0.2-1.3) mg/dL AST 35 (14-36) U/L ALT 33 (9-52) U/L Alkaline Phosphatase 114 (38-126) U/L Total Creatine Kinase 56 (30-135) U/L CK-MB (CK-2) 1.2 (0.0-2.4) ng/mL CK-MB (CK-2) Rel Index 2.1 Troponin I <0.012 (0.000-0.034) ng/mL Total Protein 7.3 (6.3-8.2) g/dL Albumin 4.2 (3.5-5.0) g/dL Urine Color Urine Appearance (Clear) Urine pH (5.0-8.0) Ur Specific [place] (1.001-1.035) Urine Protein (Negative) Urine Glucose (UA) (Negative) Urine Ketones (Negative) Urine Blood (Negative) Urine Nitrite (Negative) Urine Bilirubin (Negative) Urine Urobilinogen (<2.0) mg/dL Ur Leukocyte Esterase (Negative) Urine RBC (0-5) /hpf Urine WBC (0-5) /hpf Urine WBC Clumps (None) /hpf Ur Squamous Epith Cells (0-4) /hpf Urine Bacteria (None) /hpf Urine Mucus (None) /hpf Influenza Type A RNA (Not Detectd) Influenza Type B (PCR) (Not Detectd) 08/17/17 08/17/17 Range/Units 13:40 13:45 WBC (3.8-10.6) k/uL RBC (3.80-5.40) m/uL Hgb (11.4-16.0) gm/dL Hct (34.0-46.0) % MCV (80.0-100.0) fL MCH (25.0-35.0) pg MCHC (31.0-37.0) g/dL RDW (11.5-15.5) % Plt Count (150-450) k/uL Neutrophils % % Lymphocytes % % Monocytes % % Eosinophils % % Basophils % % Neutrophils # (1.3-7.7) k/uL Lymphocytes # (1.0-4.8) k/uL Monocytes # (0-1.0) k/uL Eosinophils # (0-0.7) k/uL Basophils # (0-0.2) k/uL Sodium (137-145) mmol/L Potassium (3.5-5.1) mmol/L Chloride (98-107) mmol/L Carbon Dioxide (22-30) mmol/L Anion Gap mmol/L BUN (7-17) mg/dL Creatinine (0.52-1.04) mg/dL Est GFR (CKD-EPI)AfAm (>60 ml/min/1.73 sqM) Est GFR (CKD-EPI)NonAf (>60 ml/min/1.73 sqM) Glucose (74-99) mg/dL Calcium (8.4-10.2) mg/dL Magnesium (1.6-2.3) mg/dL Total Bilirubin (0.2-1.3) mg/dL AST (14-36) U/L ALT (9-52) U/L Alkaline Phosphatase (38-126) U/L Total Creatine Kinase (30-135) U/L CK-MB (CK-2) (0.0-2.4) ng/mL CK-MB (CK-2) Rel Index Troponin I (0.000-0.034) ng/mL Total Protein (6.3-8.2) g/dL Albumin (3.5-5.0) g/dL Urine Color Yellow Urine Appearance Cloudy H (Clear) Urine pH 6.0 (5.0-8.0) Ur Specific [place] 1.020 (1.001-1.035) Urine Protein 2+ H (Negative) Urine Glucose (UA) Negative (Negative) Urine Ketones Negative (Negative) Urine Blood Small H (Negative) Urine Nitrite Positive H (Negative) Urine Bilirubin Negative (Negative) Urine Urobilinogen 2.0 (<2.0) mg/dL Ur Leukocyte Esterase Large H (Negative) Urine RBC 29 H (0-5) /hpf Urine WBC 174 H (0-5) /hpf Urine WBC Clumps Moderate H (None) /hpf Ur Squamous Epith Cells 9 H (0-4) /hpf Urine Bacteria Many H (None) /hpf Urine Mucus Rare H (None) /hpf Influenza Type A RNA Not Detected (Not Detectd) Influenza Type B (PCR) Detected H (Not Detectd) - Radiology Data Radiology results: report reviewed (Chest x-rays negative for acute disease), image reviewed Disposition Clinical Impression: Atrial fibrillation with rapid ventricular response, Acute exacerbation of chronic obstructive airways disease, Fever, Influenza B, UTI (urinary tract infection) Disposition: ADMITTED IP TO THIS HOSP Condition: Fair Referrals: Du Lancasetr MD [Primary Care Provider] - 1-2 days
[2017-08-17] MEDS ORDERED: DILTIAZEM 50 MG in SODIUM CHLORIDE 0.9% 40 ML IV ONE (12:52)
[2017-08-17 12:57] LABS: Basophils % (A) 0 %; Eosinophils # (A) 0.1 k/uL (0-0.7); Eosinophils % (A) 1 %; HCT 45.4 % (34.0-46.0); HGB 14.6 gm/dL (11.4-16.0); Lymphocytes # (A) 0.6 k/uL (1.0-4.8); Lymphocytes % (A) 6 %; MCH 30.6 pg (25.0-35.0); MCHC 32.1 g/dL (31.0-37.0); MCV 95.4 fL (80.0-100.0); Mean Platelet Volume 8.1; Monocytes # (A) 0.4 k/uL (0-1.0); Monocytes % (A) 4 %; Neutrophils % (A) 88 %; Platelet Count 176 k/uL (150-450); RBC 4.76 m/uL (3.80-5.40); RDW 13.4 % (11.5-15.5); WBC 9.1 k/uL (3.8-10.6)
[2017-08-17 13:05] LABS: ALT 33 U/L (9-52); AST 35 U/L (14-36); Albumin 4.2 g/dL (3.5-5.0); Alkaline Phosphatase 114 U/L (38-126); Anion Gap 14 mmol/L; Blood Urea Nitrogen 15 mg/dL (7-17); Calcium 9.4 mg/dL (8.4-10.2); Carbon Dioxide 26 mmol/L (22-30); Chloride 102 mmol/L (98-107); Glucose 152 mg/dL (74-99); Magnesium 1.8 mg/dL (1.6-2.3); Potassium 4.2 mmol/L (3.5-5.1); Sodium 142 mmol/L (137-145); Total Bilirubin 1.6 mg/dL (0.2-1.3); Total Protein 7.3 g/dL (6.3-8.2)
--- NOTE | 2017-08-17 13:20 | XR ---
EXAMINATION TYPE: XR chest 2V DATE OF EXAM: 08/17/2017 COMPARISON: 05/06/2017 HISTORY: Shortness of breath TECHNIQUE: Frontal and lateral views of the chest are obtained. FINDINGS: Scattered senescent parenchymal changes noted. No evidence for infiltrate. No evidence for atelectasis. Cardiomegaly with pulmonary venous congestion. No evidence for overt failure at this time. Mediastinal structures are stable and grossly unremarkable. No evidence for hilar prominence. Degenerative changes dorsal spine. IMPRESSION: 1. Cardiomegaly with pulmonary venous congestion. No evidence for overt failure at this time.
[2017-08-17 13:22] LABS: Creatine Kinase 56 U/L (30-135)
[2017-08-17] MEDS ORDERED: methylPREDNISolone SOD SUCCI 125 MG/2 ML VIAL IV STA (13:27)
[2017-08-17] MEDS ORDERED: SODIUM CHLORIDE 0.9% 1,000 ML IV SCH (13:30)
[2017-08-17 13:38] LABS: Creatine Kinase MB 1.2 ng/mL (0.0-2.4); Troponin I <0.012 ng/mL (0.000-0.034)
[2017-08-17 14:09] LABS: Appearance,Urine Cloudy (Clear); Bacteria,Urine Many /hpf; Bilirubin,Urine Negative (Negative); Blood,Urine Small (Negative); Color,Urine Yellow; Glucose,Urine (UA) Negative (Negative); Ketones,Urine Negative (Negative); Leukocyte Esterase,Urine Large (Negative); Mucus,Urine Rare /hpf; Nitrite,Urine Positive (Negative); Protein,Urine 2+ (Negative); RBC,Urine 29 /hpf (0-5); Squamous Epithelial Cell,Urine 9 /hpf (0-4); WBC,Urine 174 /hpf (0-5)
[2017-08-17] MEDS ORDERED: cefTRIAXone 2,000 MG in SODIUM CHLORIDE 0.9% 100 ML IVPB STA (14:14)
[2017-08-17] MEDS ORDERED: OSELTAMIVIR 75 MG CAP PO STA (14:15)
[2017-08-17] MEDS ORDERED: cefTRIAXone IN SWFI 2,000 MG/20 ML SYRINGE IVP STA (14:17)
[2017-08-17] MEDS ORDERED: ACETAMINOPHEN IV (For NPO) 1,000 MG in EMPTY BAG 1 BAG IVPB STA (14:21)
[2017-08-17] MEDS ORDERED: LEVOFLOXACIN 750MG-D5W PMX 750 MG in DEXTROSE/WATER 1 150ML.BAG IVPB STA (14:45)
[2017-08-17 14:57] LABS: INR 1.7 (<1.2); Partial Thromboplastin Time 28.1 sec (22.0-30.0)
[2017-08-17] MEDS: IPRATROPIUM-ALBUTEROL 3 ML NEB INHALATION SCH ×2 (17:47→19:33)
[2017-08-17] MEDS: methylPREDNISolone SOD SUCCI 125 MG/2 ML VIAL IV SCH ×2 (21:44→23:08)
--- NOTE | 2017-08-17 21:59 | HP ---
HISTORY AND PHYSICAL DATE OF SERVICE: 08/17/2017 I am covering for Dr. Lancaster. CHIEF COMPLAINT: Shortness of breath. HISTORY OF PRESENT ILLNESS: This 67-year-old woman with a past medical history of multiple medical problems including CHF, history of pericardial effusion, history of ascites, moderate pulmonary hypertension, history of CVI, history of chronic atrial fibrillation, being followed by Dr. Du Lancaster in the outpatient setting was complaining of shortness of breath. The patient came to [facility] Emergency Room and was admitted for further evaluation and treatment. Evaluation showed possible atrial fibrillation and UTI. The flu was also positive with influenza B and the patient admitted to the hospital for further evaluation and treatment. There is no history of any fever , rigors. No history of headache, loss of consciousness, seizures. PAST MEDICAL HISTORY: History of atrial ablation, CHF, COPD, CVA, GERD, hypertension, hyperlipidemia, history of section. MEDICATIONS: Prior to admission include home medications are: 1. Coumadin 5 mg p.o. as before. 2. Spiriva 1 puff daily. 3. Lopressor 25 mg b.i.d. 4. HydroDIURIL 25 mg. 5. Lasix 40 mg. 6. Lanoxin 250 mcg. 7. Symbicort 160/4.5 2 puffs b.i.d. 8. Ventolin nebulizer 2.5 q.i.d. p.r.n. 9. Ventolin HFA inhaler 1-2 puffs q.6h p.r.n. ALLERGIES: None. FAMILY HISTORY: Unable to obtain. SOCIAL HISTORY: History of smoking. No history of alcohol intake. REVIEW OF SYSTEMS: ENT: No diminished vision, no diminished hearing. Cardiovascular: S1, S2. Respiratory: As mentioned earlier. GI no nausea or vomiting. : No dysuria. NERVOUS SYSTEM: No numbness or weakness. ALLERGY/IMMUNOLOGY: As mentioned earlier. HEMATOLOGY/ONCOLOGY: No history of anemia. Musculoskeletal: As mentioned earlier. Endocrine: No history of diabetes or hypothyroidism. Constitutional: As mentioned earlier. Dermatology: Negative. Rheumatology: Negative. Psychiatric: As mentioned earlier. PHYSICAL EXAM: The patient is alert and oriented times three. Pulse 103, blood pressure 123/68, respiration 20, temperature 98.2, pulse ox 98% on 2 L, HEENT: Conjunctivae normal. Oral mucosa moist. Neck is no jugular venous distention. No carotid bruit. No lymph node enlargement. Cardiovascular system: S1, S2 muffled. No S3, no S4. Respiratory: Breath sounds diminished in the bases. Bilateral scattered rhonchi and crackles. ABDOMEN: Soft, nontender. No mass palpable. Legs are no edema. No swelling. Central nervous system: Higher functions as mentioned earlier. Moves all 4 limbs. No focal motor or sensory deficits. Lymphatics: No lymph nodes palpable in the neck, axillae or groin. Skin: No ulcer, rash or bleeding. LABS: INR 1.7. Otherwise, total bilirubin is 1.3. UA noted. Assessment. Chest x-ray which was reviewed showed cardiomegaly with pulmonary venous congestion. ASSESSMENT: 1. Congestive heart failure acute exacerbation. 2. Possible chronic obstructive pulmonary disease acute exacerbation. 3. Acute influenza B. 4. Acute urinary tract infection present on admission. 5. Atrial fibrillation. 6. History of chronic obstructive pulmonary disease. 7. History Gastroesophageal reflux disease. 8. Hypertension. 9. Hyperlipidemia. 10.History of degenerative joint disease. 11.History of cerebrovascular accident, transient ischemic attack. 12.History of pericardial effusion, remotely. 13.History of incarcerated umbilical hernia. 14.Gait dysfunction. RECOMMENDATIONS AND DISCUSSION: In this 67-year-old woman who presented with multiple complex medical issues, we will monitor the patient closely, continue the current medications, continue symptomatic treatment. Otherwise, at this time, I recommend bronchodilators. I would also recommend resume the home medications and beta blockers. I would also recommend diuretics. Home medications will be continued. Cardiology and pulmonology consultation will be sought. The overall prognosis guarded because of multiple complex medical issues and further recommendations to follow. Broad-spectrum IV antibiotics also been initiated. Tamiflu has been ordered. Repeat labs also have been ordered. The shortness of breath appears to be a combination at this time. Possibly exacerbated by acute flu. Medications reconciliation was done. We will also monitor the PT /INR on a daily basis. Otherwise cultures have been obtained. MMODL / IJN: [id number] / MTDD
[2017-08-17] MEDS: OSELTAMIVIR 75 MG CAP PO SCH (23:08)
[2017-08-18 06:34] LABS: Basophils % (A) 0 %; Eosinophils % (A) 0 %; HCT 44.1 % (34.0-46.0); HGB 13.9 gm/dL (11.4-16.0); Lymphocytes # (A) 0.2 k/uL (1.0-4.8); Lymphocytes % (A) 4 %; MCHC 31.6 g/dL (31.0-37.0); MCV 98.2 fL (80.0-100.0); Monocytes # (A) 0.1 k/uL (0-1.0); Monocytes % (A) 1 %; Neutrophils # (A) 5.3 k/uL (1.3-7.7); Neutrophils % (A) 94 %; Platelet Count 143 k/uL (150-450); RDW 13.5 % (11.5-15.5); WBC 5.6 k/uL (3.8-10.6)
[2017-08-18 06:40] LABS: Anion Gap 13 mmol/L; Blood Urea Nitrogen 17 mg/dL (7-17); Calcium 8.8 mg/dL (8.4-10.2); Carbon Dioxide 22 mmol/L (22-30); Chloride 105 mmol/L (98-107); Glucose 180 mg/dL (74-99); Potassium 5.2 mmol/L (3.5-5.1); Sodium 140 mmol/L (137-145)
[2017-08-18 06:41] LABS: INR 1.8 (<1.2); Prothrombin Time 16.2 sec (9.0-12.0)
[2017-08-18] MEDS: methylPREDNISolone SOD SUCCI 125 MG/2 ML VIAL IV SCH ×2 (06:51→12:38)
[2017-08-18] MEDS: IPRATROPIUM-ALBUTEROL 3 ML NEB INHALATION SCH ×4 (07:08→20:49)
[2017-08-18] MEDS: SYMBICORT 160-4.5 MCG INHALER INHALATION SCH ×2 (07:14→20:49)
[2017-08-18] MEDS ORDERED: METOPROLOL TARTRATE 25 MG TAB PO SCH (09:00)
[2017-08-18] MEDS ORDERED: DIGOXIN 250 MCG TAB PO SCH (09:00)
[2017-08-18] MEDS: OSELTAMIVIR 75 MG CAP PO SCH ×2 (09:09→21:34)
[2017-08-18] MEDS: FUROSEMIDE 10 MG/ML 4 ML VIAL IV SCH ×2 (09:10→21:34)
[2017-08-18] MEDS: HYDROCHLOROTHIAZIDE 25 MG TAB PO SCH (09:10)
[2017-08-18] MEDS: METOPROLOL TARTRATE 25 MG TAB PO SCH ×3 (12:38→21:34)
--- NOTE | 2017-08-18 12:39 | CONS ---
CONSULTATION Mrs. Mills is a 67-year-old female who is seen for cardiac evaluation. The patient's medical records and old charts were reviewed. The patient is primarily admitted with symptoms of shortness of breath. The patient is positive for influenza B. the patient denies any significant cough with expectoration or chest pain. This patient has a history of chronic atrial fibrillation. Prior history for stroke. The patient has a severe pulmonary hypertension by previous echocardiogram and has been admitted in the past predominantly with a right-sided failure. The echocardiogram in the past showed evidence of moderate to severe mitral stenosis. The patient has been treated medically. PAST MEDICAL HISTORY: Includes a history of congestive heart failure, COPD, CVA, hyperlipidemia. MEDICATIONS: The patient's home medications include Coumadin, Spiriva, Lopressor, HydroDIURIL, Lasix, Lanoxin, Symbicort and Ventolin inhaler, PHYSICAL EXAMINATION: At present reveals a 67-year-old, obesely built female, who does not appear to be in any acute distress. The patient's heart rate is 80 to 90 per minute. The blood pressure is 131/64 mmHg. HEENT examination is negative. NECK: Supple. No significant increase in jugular venous pressure is noted. First and second heart sounds are normal. LUNGS: Revealed a few scattered wheezes. ABDOMEN: Soft. EXTREMITIES: There is 2+ pedal edema. Chest x-ray is suggestive possibly mild congestive heart failure. The patient's electrolytes are normal. Creatinine is 0.7. Patient's BNP level in April was . IMPRESSION: This patient is admitted with a influenza B. the patient has a atrial fibrillation with moderately rapid ventricular response. Patient is not in significant heart failure. The patient has a past history of chronic atrial fibrillation as well as a right-sided heart failure and pulmonary hypertension. We will add Aldactone 25 mg daily and continue Lasix 40 mg b.i.d. We will increase the Lopressor to 25 mg q.i.d. and discontinue the Lanoxin. MMODL / IJN: [id number] /
--- NOTE | 2017-08-18 14:52 | P.CNPUL ---
History of Present Illness Consult date: 08/18/17 Reason for consult: dyspnea, hypoxemia, pleural effusion, abnormal CXR/CT Chief complaint: Shortness of breath History of present illness: Consult dated 08/18/2017 This is a 67-year-old female with a previous history of CVA. For that reason, she is really not able to give any history. Most of the history is obtained from her . She repeats words over and over again and she cannot give really any major or significant history. She's had for that reason, she is a very poor historian. She apparently came to the hospital with complaints of increasing shortness of breath and difficulty sleeping. She apparently was found to have heart failure in the emergency department was admitted for that reason. She looks pretty good right now. She did start smoking again. She sitting at the bedside. Nasal O2 in place. Does not appear to have any respiratory distress. She appears to be happily demented. No pain. No discomfort. No nausea vomiting or diarrhea. Based on her history, she apparently has atrial fibrillation angina COPD CVA involving the left side of the brain and weakness on the right side of body GERD hyperlipidemia hypertension DJD pneumonia and chronic kidney disease. The patient apparently also has a history of atrial fibrillation with RVR previous head injury DJD back pain chronic urinary tract infections and multiple orthopedic procedures and other surgical procedures. Review of Systems ROS unobtainable: due to mental status Past Medical History Past Medical History: Unable to Obtain, Atrial Fibrillation, Chest Pain / Angina , Heart Failure, COPD, CVA/TIA, GERD/Reflux, Hyperlipidemia, Hypertension, Osteoarthritis (OA), Pneumonia, Renal Disease Additional Past Medical History / Comment(s): 2002 CVA with R sided weakness arm /leg/contracted R hand and dysphasia, Afib with RVR, cardiac valve disease, DJD , occasional back pain, bronchitis, UTIs, kidney infections, anemia, head injury. History of Any Multi-Drug Resistant Organisms: None Reported Past Surgical History: Section, Hernia Repair, Orthopedic Surgery, Tonsillectomy Additional Past Surgical History / Comment(s): Incarcerated umbilical hernia repair/omentum resection, X2, L tibial IM nailing, teeth extractions. Past Anesthesia/Blood Transfusion Reactions: No Reported Reaction Past Psychological History: No Psychological Hx Reported Additional Psychological History / Comment(s): PT CURRENTLY LIVES ALONE AT [facility]- PT USES W/C OR MOTORIZED SCOOTER TO GET AROUND AND IS ABLE TO TRANSFER SELF. SHE HAS A FRIEND NAMED, KALEY WHO DRIVES HER TO HER APPTS. Smoking Status: Current every day smoker Past Alcohol Use History: None Reported Additional Past Alcohol Use History / Comment(s): SMOKED X 30 YEARS 1 PPD QUIT FOR 20 YEARS AND RECENTLY STARTED SMOKING AGAIN, 1/2 PPD. Past Drug Use History: None Reported - Past Family History Father Family Medical History: Unable to Obtain Additional Family Medical History / Comment(s): FATHER WAS HEALTHY AND LIVED TO BE 96YRS OLD. Mother Family Medical History: Cancer Additional Family Medical History / Comment(s): MOTHER HAD BREAST CANCER. Medications and Allergies Home Medications Medication Instructions Recorded Confirmed Type Furosemide [Lasix] 40 mg PO DAILY 03/31/15 08/17/17 History Digoxin [Lanoxin] 250 mcg PO DAILY #30 tab 04/27/15 08/17/17 Rx Metoprolol Tartrate [Lopressor] 25 mg PO BID #60 tab 04/27/15 08/17/17 Rx Albuterol Inhaler [Ventolin Hfa 1 - 2 puff INHALATION RT-Q6H PRN 05/01/17 History Inhaler] Budesonide-Formot 160-4.5 Mcg 2 puff INHALATION RT-BID 05/01/17 08/17/17 History [Symbicort 160-4.5 Mcg Inhaler] Tiotropium [place]ula [Spiriva] 1 cap INHALATION RT-DAILY 05/01/17 08/17/17 History Albuterol Nebulized [Ventolin 2.5 mg INHALATION RT-QID PRN 08/17/17 08/17/17 History Nebulized] Hydrochlorothiazide [Hydrodiuril] 25 mg PO DAILY 08/17/17 08/17/17 History Warfarin [Coumadin] 5 mg PO DIRECTED 08/17/17 08/17/17 History Allergies Allergy/AdvReac Type Severity Reaction Status Date / Time No Known Allergies Allergy Verified 08/17/17 12:59 Physical Exam Osteopathic Statement: *. No significant issues noted on an osteopathic structural exam other than those noted in the History and Physical/Consult. Vitals: Vital Signs Temp Pulse Pulse Resp BP BP Pulse Ox 08/18/17 12:00 117 H 16 119/61 97 08/18/17 11:36 77 16 08/18/17 11:26 80 16 08/18/17 11:25 16 08/18/17 08:00 97 F L 131 H 16 131/64 91 L 08/18/17 07:18 81 16 08/18/17 07:08 78 16 98 08/18/17 04:00 98 F 124 H 16 126/96 96 08/18/17 00:00 81 20 08/17/17 23:12 98.6 F 81 20 117/70 98 08/17/17 20:00 103 H 28 H 08/17/17 19:43 98.3 F 103 H 28 H 123/67 98 08/17/17 19:13 88 18 123/55 98 08/17/17 18:10 98 18 122/58 97 08/17/17 18:06 98.1 F 104 H 20 122/58 96 08/17/17 17:59 98 08/17/17 17:47 100 08/17/17 15:00 100.0 F H 92 20 106/70 96 Intake and Output 08/17/17 08/18/17 08/18/17 22:59 06:59 14:59 Intake Total 1036 Output Total [id number] Balance -150 -400 36 Intake: Intake, IV Titration 800 Amount Sodium Chloride 0.9% 1, 800 000 ml @ 100 mls/hr IV . Q10H KALINA Rx#:[id number] Oral 236 Output: Urine [phone] Other: # Voids 1 1 # Bowel Movements 0 Weight 96.9 kg No acute distress, hard to assess her orientation, appears in no acute distress. HEENT examination is grossly unremarkable. Mucous membranes are moist. No oral lesions. Neck supple. Full range of motion. No adenopathy thyromegaly or neck vein distention. Cardiovascular examination reveals irregular rhythm rate. S1-S2 normal. No S3 or S4. Soft systolic murmur noted. Lungs reveal bibasilar lower lobe crackles. Breath sounds are equal. No rhonchi or wheezes. Abdomen soft bowel sounds are heard. No masses or tenderness. Extremities are intact. No cyanosis clubbing or edema. Skin is without rash or lesion. Neurologic examination is difficult to assess. Results - Laboratory Findings CBC and BMP: 08/18/17 05:42 08/18/17 05:42 PT/INR, D-dimer PT 16.2 sec (9.0-12.0) H 08/18/17 05:42 INR 1.8 (<1.2) H 08/18/17 05:42 Abnormal lab findings: Abnormal Labs 08/17/17 08/17/17 08/17/17 12:45 12:45 13:40 Plt Count Neutrophils # 8.0 H Lymphocytes # 0.6 L PT INR Potassium Glucose 152 H Total Bilirubin 1.6 H Urine Appearance Cloudy H Urine Protein 2+ H Urine Blood Small H Urine Nitrite Positive H Ur Leukocyte Esterase Large H Urine RBC 29 H Urine WBC 174 H Urine WBC Clumps Moderate H Ur Squamous Epith Cells 9 H Urine Bacteria Many H Urine Mucus Rare H Influenza Type B (PCR) 08/17/17 08/17/17 08/18/17 13:45 14:35 05:42 Plt Count 143 L Neutrophils # Lymphocytes # 0.2 L PT 16.0 H INR 1.7 H Potassium Glucose Total Bilirubin Urine Appearance Urine Protein Urine Blood Urine Nitrite Ur Leukocyte Esterase Urine RBC Urine WBC Urine WBC Clumps Ur Squamous Epith Cells Urine Bacteria Urine Mucus Influenza Type B (PCR) Detected H 08/18/17 08/18/17 05:42 05:42 Plt Count Neutrophils # Lymphocytes # PT 16.2 H INR 1.8 H Potassium 5.2 H Glucose 180 H Total Bilirubin Urine Appearance Urine Protein Urine Blood Urine Nitrite Ur Leukocyte Esterase Urine RBC Urine WBC Urine WBC Clumps Ur Squamous Epith Cells Urine Bacteria Urine Mucus Influenza Type B (PCR) - Diagnostic Findings Chest x-ray: image reviewed (Chest x-ray labs and medications are reviewed. Chest x-rays consistent with heart failure.) Assessment and Plan Assessment: Assessment Acute congestive heart failure History of atrial fibrillation COPD CVA/TIA with residual right-sided weakness and mental status changes History of GERD Hyperlipidemia Hypertension DJD Pneumonia CAD Chronic kidney disease Previous history of head injury DJD Plan: Plan dated 08/18/2017 The patient remains on updrafts and Symbicort. She's also on Tamiflu for positive nasal swab. In addition, she is on diuretics. Additional recommendations and suggestions are forthcoming. We'll continue to follow. Prognosis is guarded. Again history very hard to obtain given her recent CVA and residual neurologic deficits. We will continue to follow. Time with Patient: Greater than 30
[2017-08-18] MEDS ORDERED: LEVOFLOXACIN 750MG-D5W PMX 750 MG in DEXTROSE/WATER 1 150ML.BAG IVPB SCH (15:00)
--- NOTE | 2017-08-18 15:46 | P.PN ---
Subjective 67-year-old pleasant female with history of right-sided heart failure, cor pulmonale mitral stenosis and possibility of diastolic dysfunction is admitted for influenza B viral illness was stating some mild CHF. Patient is presently clinically doing well on Actonel was added to her regimen but her potassium is borderline high at 5.2 we'll check the serum potassium tomorrow if it goes up on Bactrim will be discontinued patient is getting IV Lasix at this time. A she is presently on 3 L of oxygen next Objective - Vital Signs Vital signs: Vital Signs Temp 97 F L 08/18/17 08:00 Pulse 117 H 08/18/17 12:00 Resp 16 08/18/17 14:53 BP 119/61 08/18/17 12:00 Pulse Ox 97 08/18/17 12:00 Intake & Output 08/17/17 08/18/17 08/18/17 18:59 06:59 18:59 Intake Total 1036 Output Total 550 1000 Balance -550 36 Weight 84.822 kg 96.9 kg Intake: Intake, IV Titration 800 Amount Sodium Chloride 0.9% 1, 800 000 ml @ 100 mls/hr IV . Q10H KALINA Rx#:[id number] Oral 236 Output: Urine 550 1000 Other: # Voids 1 1 # Bowel Movements 0 - Exam PHYSICAL EXAMINATION: GENERAL: The patient is alert and oriented x3, not in any acute distress. Well developed, well nourished. HEENT: Pupils are round and equally reacting to light. EOMI. No scleral icterus. No conjunctival pallor. Normocephalic, atraumatic. No pharyngeal erythema. No thyromegaly. CARDIOVASCULAR: S1 and S2 present. No murmurs, rubs, or gallops. Does have elevated JVD PULMONARY: Chest is clear to auscultation, no wheezing or crackles. ABDOMEN: Soft, nontender, nondistended, normoactive bowel sounds. No palpable organomegaly. MUSCULOSKELETAL: No joint swelling or deformity. EXTREMITIES: No cyanosis, clubbing, patient does have bilateral pedal edema about a 2-3+ NEUROLOGICAL: Gross neurological examination did not reveal any focal deficits. SKIN: No rashes. - Labs CBC & Chem 7: 08/18/17 05:42 08/18/17 05:42 Labs: Abnormal Lab Results - Last 24 Hours (Table) 08/18/17 08/18/17 08/18/17 Range/Units 05:42 05:42 05:42 Plt Count 143 L (150-450) k/uL Lymphocytes # 0.2 L (1.0-4.8) k/uL PT 16.2 H (9.0-12.0) sec INR 1.8 H (<1.2) Potassium 5.2 H (3.5-5.1) mmol/L Glucose 180 H (74-99) mg/dL Microbiology - Last 24 Hours (Table) 08/17/17 12:45 Blood Culture - Preliminary Blood No Growth after 24 hours 08/17/17 13:40 Urine Culture - Preliminary Urine,Voided Assessment and Plan Plan: -Acute hypoxic respiratory failure: Secondary to right-sided heart failure along with probable chronic diastolic dysfunction with acute exacerbation and the patient is getting IV Lasix at this time patient does have adequate stenosis and severe pulmonary hypertension -Atrial fibrillation: With rapid ventricular rate continued present regimen and cardiology is following the patient. -COPD without any significant exacerbation patient's IV steroids will be discontinued patient will be continued on inhaled steroids. -Influenza B white male respiratory illness -Hyperlipidemia -Hypertension -Coronary artery disease -Severe pulmonary hypertension For above-mentioned chronic medical problems patient will be continued on appropriate home medications continued diuretics basic metabolic profile tomorrow.
[2017-08-18] MEDS: SPIRONOLACTONE 25 MG TAB PO SCH (16:03)
[2017-08-18] MEDS ORDERED: WARFARIN 7.5 MG TAB PO SCH (18:00)
[2017-08-19 00:05] VITALS: RESP 16
[2017-08-19 05:49] LABS: Basophils % (A) 0 %; Eosinophils % (A) 0 %; HCT 42.3 % (34.0-46.0); HGB 13.8 gm/dL (11.4-16.0); Lymphocytes # (A) 0.6 k/uL (1.0-4.8); Lymphocytes % (A) 5 %; MCH 31.7 pg (25.0-35.0); MCHC 32.7 g/dL (31.0-37.0); MCV 96.9 fL (80.0-100.0); Monocytes # (A) 0.3 k/uL (0-1.0); Monocytes % (A) 3 %; Neutrophils # (A) 9.2 k/uL (1.3-7.7); Neutrophils % (A) 90 %; Platelet Count 165 k/uL (150-450); RBC 4.37 m/uL (3.80-5.40); RDW 13.5 % (11.5-15.5); WBC 10.2 k/uL (3.8-10.6)
[2017-08-19 05:50] LABS: INR 1.5 (<1.2); Prothrombin Time 13.9 sec (9.0-12.0)
[2017-08-19 06:01] LABS: Calcium 9.5 mg/dL (8.4-10.2); Potassium 4.2 mmol/L (3.5-5.1)
[2017-08-19] MEDS: SYMBICORT 160-4.5 MCG INHALER INHALATION SCH (07:52)
[2017-08-19] MEDS: IPRATROPIUM-ALBUTEROL 3 ML NEB INHALATION SCH ×3 (07:52→15:49)
[2017-08-19] MEDS: FUROSEMIDE 10 MG/ML 4 ML VIAL IV SCH (09:21)
[2017-08-19] MEDS: METOPROLOL TARTRATE 25 MG TAB PO SCH ×2 (09:21→12:08)
[2017-08-19] MEDS: HYDROCHLOROTHIAZIDE 25 MG TAB PO SCH (09:21)
[2017-08-19] MEDS: SPIRONOLACTONE 25 MG TAB PO SCH (09:22)
[2017-08-19] MEDS: OSELTAMIVIR 75 MG CAP PO SCH (09:22)
[2017-08-19 09:29] VITALS: TEMP 97.4
--- NOTE | 2017-08-19 10:40 | P.PN ---
Subjective Progress Note Date: 08/19/17 Principal diagnosis: Shortness of breath, influenza Progress note dated 08/19/2017 This is a 67-year-old female with a history of shortness of breath secondary to heart failure and atrial fibrillation. She also has a history of COPD CVA with right-sided weakness gastroesophageal reflux disease hyperlipidemia hypertension DJD pneumonia CAD chronic kidney disease previous history of head injury and arthritis. The patient was placed on updrafts and Symbicort. She was also placed on Tamiflu 75 mg twice a day for 5 days. She had a positive nasal swab for influenza. Doing better today. Very poor historian. Very limited in what she can give in terms of history. This is because of her previous CVA. Anyway, clinically appears to be doing better. Objective - Vital Signs Vital signs: Vital Signs Temp 97.4 F L 08/19/17 08:00 Pulse 85 08/19/17 08:00 Resp 16 08/19/17 08:00 BP 109/68 08/19/17 08:00 Pulse Ox 95 08/19/17 08:00 Intake & Output 08/18/17 08/19/17 08/19/17 18:59 06:59 18:59 Intake Total 1272 Output Total 1000 600 Balance 272 -600 Weight 94.8 kg Intake: Intake, IV Titration 800 Amount Sodium Chloride 0.9% 1, 800 000 ml @ 100 mls/hr IV . Q10H KALINA Rx#:[id number] Oral 472 Output: Urine 1000 600 Other: # Voids 1 3 - Exam No acute distress, difficult to determine her current level of mental status. HEENT examination is grossly unremarkable. Mucous membranes are moist. No oral lesions. Neck supple. Full range of motion. No adenopathy thyromegaly or neck vein distention. Cardiovascular examination reveals regular rhythm rate. S1-S2 normal. No S3 or S4. No discernible murmur noted. Lungs reveal a few scattered bibasilar crackles. A few scattered coarse bilateral rhonchi. Breath sounds are improved. Breath sounds are equal bilaterally. Abdomen soft bowel sounds are heard. No masses or tenderness. Extremities are intact. No cyanosis clubbing or edema. Skin is without rash or lesion. Neurologic examination right-sided residual weakness from her previous CVA. - Labs CBC & Chem 7: 08/19/17 05:24 08/19/17 05:24 Labs: Abnormal Lab Results - Last 24 Hours (Table) 08/19/17 08/19/17 08/19/17 Range/Units 05:24 05:24 05:24 Neutrophils # 9.2 H (1.3-7.7) k/uL Lymphocytes # 0.6 L (1.0-4.8) k/uL PT 13.9 H (9.0-12.0) sec INR 1.5 H (<1.2) Carbon Dioxide 31 H (22-30) mmol/L BUN 29 H (7-17) mg/dL Glucose 160 H (74-99) mg/dL Microbiology - Last 24 Hours (Table) 08/17/17 13:40 Urine Culture - Preliminary Urine,Voided Gram Neg Bacilli 08/17/17 12:45 Blood Culture - Preliminary Blood No Growth after 24 hours Assessment and Plan Assessment: Assessment Acute congestive heart failure History of atrial fibrillation COPD CVA/TIA with residual right-sided weakness and mental status changes History of GERD Hyperlipidemia Hypertension DJD Pneumonia CAD Chronic kidney disease Previous history of head injury DJD Plan: Plan dated 08/18/2017 The patient remains on updrafts and Symbicort. She's also on Tamiflu for positive nasal swab. In addition, she is on diuretics. Additional recommendations and suggestions are forthcoming. We'll continue to follow. Prognosis is guarded. Again history very hard to obtain given her recent CVA and residual neurologic deficits. We will continue to follow. Plan dated 08/19/2017 The patient continues to show improvement. Less short of breath. Difficult to assess this patient but she appears not to have any distress her lungs sound better today than he did yesterday. She remains on updrafts and Symbicort. She also remains on Tamiflu for influenza positive nasal swab. She's also on diuretics for heart failure. We'll continue to follow. Time with Patient: Less than 30
[2017-08-19 12:10] VITALS: BP 118/64; PULSE 92
--- NOTE | 2017-08-19 17:12 | P.DS ---
Providers Date of admission: 08/17/17 13:28 Attending physician: Christopher Young Consults: 08/17/17 21:10 Consult Physician Routine Consulting Provider: Ale Serrano Consult Reason/Comments: chf Do you want consulting provider notified?: Yes 08/17/17 21:11 Consult Physician Routine Consulting Provider: Na Delcid Consult Reason/Comments: copd Do you want consulting provider notified?: Yes Primary care physician: Du Lancaster Hospital Course: 67-year-old pleasant female with history of right-sided heart failure, cor pulmonale mitral stenosis and possibility of diastolic dysfunction is admitted for influenza B viral illness was stating some mild CHF. Patient is presently clinically doing well on Actonel was added to her regimen but her potassium is borderline high at 5.2 we'll check the serum potassium tomorrow if it goes up on Bactrim will be discontinued patient is getting IV Lasix at this time. A she is presently on 3 L of oxygen 08/19/2017 Patient is clinically doing well patient respiratory status is at her baseline discontinued off his and patient dose of Lasix was increased to 40 twice a day along with aldactone and discontinue hydrochlorothiazide patient's potassium today is 4.2PHYSICAL EXAMINATION: GENERAL: The patient is alert and oriented x3, not in any acute distress. Well developed, well nourished. HEENT: Pupils are round and equally reacting to light. EOMI. No scleral icterus. No conjunctival pallor. Normocephalic, atraumatic. No pharyngeal erythema. No thyromegaly. CARDIOVASCULAR: S1 and S2 present. No murmurs, rubs, or gallops. Does have elevated JVD PULMONARY: Chest is clear to auscultation, no wheezing or crackles. ABDOMEN: Soft, nontender, nondistended, normoactive bowel sounds. No palpable organomegaly. MUSCULOSKELETAL: No joint swelling or deformity. EXTREMITIES: No cyanosis, clubbing, patient does have bilateral pedal edema minimal but improved compared to yesterday NEUROLOGICAL: Gross neurological examination did not reveal any focal deficits. Assessment and Plan Plan: -Acute hypoxic respiratory failure: Secondary to right-sided heart failure along with probable chronic diastolic dysfunction with acute exacerbation and the does have a I aortic stenosis and severe pulmonary hypertension -Atrial fibrillation: With rapid ventricular rate continued present regimen and cardiology is following the patient. -COPD without any significant exacerbation -Influenza B respiratory illness will not require any antibiotics -Hyperlipidemia -Hypertension -Coronary artery disease -Severe pulmonary hypertension Patient Condition at Discharge: Fair Plan - Discharge Summary Discharge Rx Participant: No New Discharge Prescriptions: New Oseltamivir [Tamiflu] 75 mg PO Q12HR #10 cap Spironolactone [Aldactone] 25 mg PO DAILY #30 tab Warfarin [Coumadin] 6 mg PO DAILY #30 tab Continue Digoxin [Lanoxin] 250 mcg PO DAILY #30 tab Metoprolol Tartrate [Lopressor] 25 mg PO BID #60 tab Tiotropium [place] [Spiriva] 1 cap INHALATION RT-DAILY Budesonide-Formot 160-4.5 Mcg [Symbicort 160-4.5 Mcg Inhaler] 2 puff INHALATION RT-BID Albuterol Inhaler [Ventolin Hfa Inhaler] 1 - 2 puff INHALATION RT-Q6H PRN PRN Reason: Shortness Of Breath Or Wheezing Albuterol Nebulized [Ventolin Nebulized] 2.5 mg INHALATION RT-QID PRN PRN Reason: Shortness Of Breath Furosemide [Lasix] 40 mg PO DAILY #30 tab Discontinued Warfarin [Coumadin] 5 mg PO DIRECTED Hydrochlorothiazide [Hydrodiuril] 25 mg PO DAILY Discharge Medication List Digoxin [Lanoxin] 250 mcg PO DAILY #30 tab 04/27/15 [Rx] Metoprolol Tartrate [Lopressor] 25 mg PO BID #60 tab 04/27/15 [Rx] Albuterol Inhaler [Ventolin Hfa Inhaler] 1 - 2 puff INHALATION RT-Q6H PRN [History] Budesonide-Formot 160-4.5 Mcg [Symbicort 160-4.5 Mcg Inhaler] 2 puff INHALATION RT-BID 05/01/17 [History] Tiotropium [place] [Spiriva] 1 cap INHALATION RT-DAILY 05/01/17 [History] Albuterol Nebulized [Ventolin Nebulized] 2.5 mg INHALATION RT-QID PRN 08/17/17 [ History] Furosemide [Lasix] 40 mg PO DAILY #30 tab 08/19/17 [Rx] Oseltamivir [Tamiflu] 75 mg PO Q12HR #10 cap 08/19/17 [Rx] Spironolactone [Aldactone] 25 mg PO DAILY #30 tab 08/19/17 [Rx] Warfarin [Coumadin] 6 mg PO DAILY #30 tab 08/19/17 [Rx] Follow up Appointment(s)/Referral(s): Du Lancaster MD [Primary Care Provider] - 3 Days Ambulatory/Diagnostic Orders: Basic Metabolic Panel [LAB.AMB] Time Frame: 3 Days, Location: Determined By Patient Prothrombin Time INR [LAB.AMB] Time Frame: 3 Days, Location: Determined By Patient Discharge Disposition: HOME SELF-CARE
[2017-08-19] MEDS ORDERED: WARFARIN 5 MG TAB PO SCH (18:00)
--- NOTE | 2017-08-19 23:49 | PN ---
PROGRESS NOTE This patient was seen in consultation for atrial fibrillation with rapid ventricular response. Patient was positive for influenza B. he patient feels well. She remains afebrile. She is not having any respiratory distress. Heart rate is between 80-90 per minute, blood pressure is 130/80 mmHg, first and second heart sounds are normal. Lungs are clinically clear to auscultation and percussion. We will recommend to continue the patient on current medications and patient can be discharged home today. MMODL / IJN: [id number] /
--- NOTE | 2017-08-29 11:39 | CDI ---
CKD Stage 2 Last Revision, March 2017 Documentation Clarification Form Date: 08/29/17 From: Marcia Laguna Phone: If you have a question regarding this query, please contact Shari Rosenthal at [phone] between 8am and 5pm. Admit Date: 08/17/2017 1:28:00 PM Patient Name: Azul Mills Visit Number: [id number] Discharge Date: 08/19 ATTENTION: The Clinical Documentation Specialists (CDI) and [facility] Coding Staff appreciate your assistance in clarifying documentation. Please respond to the clarification below the line at the bottom and electronically sign. The CDI & [facility] Coding staff will review the response and follow-up if needed. Please note: Queries are made part of the Legal Health Record. If you have any questions, please contact the author of this message via ITS. Dr. Carlos Ghotra CKD is documented in your consult note and 08/19 progress note. History/Risk Factors: Patient has a history of hypertension, CHF, atrial fib and CVA with right weakness. Current BUN/CR/GFR: 15/.71/89 on admission; 29/.80/88 on day of discharge. Patients Baseline: BUN/CR/GFR: Not documented In order to capture the severity of condition, please clarify if the condition signifies: CKD Stage 1 (GFR > 90) CKD Stage 2 (GFR 60-89) CKD Stage 3 (GFR 30-59) CKD Stage 4 (GFR 15-29) CKD Stage 5 (GFR <15) ESRD Other, please specify Unable to determine __CKD Stage 2 MTDD
== END 2017-08-19 15:58 | disposition home or self-care (01) | DRG 193 ==
LOC: EC 12:17 → 6SEL 13:28
PROVIDERS: ADMIT Hospitalist; ATTEND Hospitalist
DX: J10.00 Influenza due to other identified influenza virus with unspecified type of pneumonia (principal); J96.01 Acute respiratory failure with hypoxia; I50.33 Acute on chronic diastolic (congestive) heart failure; I13.0 Hypertensive heart and chronic kidney disease with heart failure and stage 1 through stage 4 chronic kidney disease, or unspecified chronic kidney disease; I69.351 Hemiplegia and hemiparesis following cerebral infarction affecting right dominant side; J44.0 Chronic obstructive pulmonary disease with (acute) lower respiratory infection; N39.0 Urinary tract infection, site not specified; N18.2 Chronic kidney disease, stage 2 (mild); I27.29 Other secondary pulmonary hypertension; I27.81 Cor pulmonale (chronic); I08.3 Combined rheumatic disorders of mitral, aortic and tricuspid valves; I48.2 Chronic atrial fibrillation; I69.021 Dysphasia following nontraumatic subarachnoid hemorrhage; E78.5 Hyperlipidemia, unspecified; N18.9 Chronic kidney disease, unspecified; F17.210 Nicotine dependence, cigarettes, uncomplicated; I25.10 Atherosclerotic heart disease of native coronary artery without angina pectoris; K21.9 Gastro-esophageal reflux disease without esophagitis; M19.90 Unspecified osteoarthritis, unspecified site; R26.9 Unspecified abnormalities of gait and mobility; I50.812 Chronic right heart failure; Z79.01 Long term (current) use of anticoagulants; Z79.51 Long term (current) use of inhaled steroids; Z79.899 Other long term (current) drug therapy; Z87.01 Personal history of pneumonia (recurrent); Z87.440 Personal history of urinary (tract) infections; Z87.828 Personal history of other (healed) physical injury and trauma; Z80.3 Family history of malignant neoplasm of breast
CPT/HCPCS: 36415; 71046; 80048; 80053; 81001; 82550; 82553; 83735; 84484; 85025; 85610; 85730; 87040; 87077; 87086; 87186; 87502; 93005; 94640; 94760; 96361; 96365; 96366; 96367; 96375; 99285

== ENCOUNTER 2017-09-29 18:24 | Inpatient (IN) | payer MEDICARE ==
[2017-09-29] MEDS ORDERED: ALBUTEROL NEBULIZED 2.5 MG/3 ML INHALATION STA (18:36)
[2017-09-29] MEDS ORDERED: IPRATROPIUM 0.5 MG/2.5 ML NEBU INHALATION STA (18:36)
[2017-09-29] MEDS ORDERED: methylPREDNISolone SOD SUCCI 125 MG/2 ML VIAL IV STA (18:36)
[2017-09-29] MEDS ORDERED: DILTIAZEM 50 MG in SODIUM CHLORIDE 0.9% 40 ML IV ONE ×2 (18:44→19:00)
[2017-09-29] MEDS ORDERED: DILTIAZEM 5 MG/1 ML (25ML VIAL) IV STA ×2 (18:44→22:05)
--- NOTE | 2017-09-29 18:51 | ED ---
General Adult HPI - General Chief complaint: Shortness of Breath Stated complaint: chf; copd; afib; cva Time Seen by Provider: 09/29/17 18:33 Source: patient, EMS, RN notes reviewed, old records reviewed, Caregiver Mode of arrival: EMS Limitations: language barrier - History of Present Illness Initial comments: 67-year-old female presents by EMS with 3 days of worsening cough and dyspnea. According to EMS she does have a history of congestive heart failure, previous stroke, and COPD. Patient is able to answer yes or no questions. She denies chest pain. She reports productive cough. Denies fever. Symptoms have been present for the past 3 days and steadily worsening. She does have chronic lower extremity edema, and this is worse in the right lower extremity. - Related Data Home Medications Medication Instructions Recorded Confirmed Albuterol Inhaler [Ventolin Hfa 1 - 2 puff INHALATION RT-Q6H PRN 05/01/17 Inhaler] Budesonide-Formot 160-4.5 Mcg 2 puff INHALATION RT-BID 05/01/17 08/17/17 [Symbicort 160-4.5 Mcg Inhaler] Tiotropium [place] [Spiriva] 1 cap INHALATION RT-DAILY 05/01/17 08/17/17 Albuterol Nebulized [Ventolin 2.5 mg INHALATION RT-QID PRN 08/17/17 08/17/17 Nebulized] Previous Rx's Medication Instructions Recorded Digoxin [Lanoxin] 250 mcg PO DAILY #30 tab 04/27/15 Metoprolol Tartrate [Lopressor] 25 mg PO BID #60 tab 04/27/15 Furosemide [Lasix] 40 mg PO DAILY #30 tab 08/19/17 Oseltamivir [Tamiflu] 75 mg PO Q12HR #10 cap 08/19/17 Spironolactone [Aldactone] 25 mg PO DAILY #30 tab 08/19/17 Warfarin [Coumadin] 6 mg PO DAILY #30 tab 08/19/17 Allergies Allergy/AdvReac Type Severity Reaction Status Date / Time No Known Allergies Allergy Verified 09/29/17 18:36 Review of Systems ROS Statement: Those systems with pertinent positive or pertinent negative responses have been documented in the HPI. ROS Other: All systems not noted in ROS Statement are negative. 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 History of Any Multi-Drug Resistant Organisms: None Reported Past Surgical History: Section, Hernia Repair, Orthopedic Surgery, Tonsillectomy Additional Past Surgical History / Comment(s): Incarcerated umbilical hernia repair/omentum resection, X2, L tibial IM nailing, teeth extractions. Past Anesthesia/Blood Transfusion Reactions: No Reported Reaction Past Psychological History: No Psychological Hx Reported Smoking Status: Current every day smoker Past Alcohol Use History: None Reported Past Drug Use History: None Reported - Past Family History Father Family Medical History: Unable to Obtain Additional Family Medical History / Comment(s): FATHER WAS HEALTHY AND LIVED TO BE 96YRS OLD. Mother Family Medical History: Cancer Additional Family Medical History / Comment(s): MOTHER HAD BREAST CANCER. General Exam Limitations: language barrier General appearance: alert, in distress Head exam: Present: atraumatic, normocephalic Eye exam: Present: normal appearance, PERRL Neck exam: Present: normal inspection Respiratory exam: Present: respiratory distress, wheezes, decreased breath sounds, prolonged expiratory Cardiovascular Exam: Present: regular rate, tachycardia GI/Abdominal exam: Present: soft. Absent: distended, tenderness Extremities exam: Present: pedal edema, other (Right lower extremity, peripheral edema, there is purple discoloration, Doppler signal is present. There is delayed cap refill at 3-4 seconds.) Neurological exam: Present: alert, motor sensory deficit Skin exam: Present: warm, dry Course Vital Signs 09/29/17 09/29/17 09/29/17 18:39 18:59 19:21 Temperature 98.6 F Pulse Rate 140 H 136 H 130 H Respiratory 20 Rate Blood Pressure 146/106 O2 Sat by Pulse 95 Oximetry 09/29/17 09/29/17 09/29/17 19:28 19:38 19:53 Temperature Pulse Rate 134 H 131 H 128 H Respiratory 16 24 24 Rate Blood Pressure 133/82 118/61 111/55 O2 Sat by Pulse 97 2 L 93 L Oximetry 09/29/17 20:36 Temperature Pulse Rate 130 H Respiratory 32 H Rate Blood Pressure 117/74 O2 Sat by Pulse 94 L Oximetry EKG Findings - EKG Comments: EKG Findings:: EKG: Atrial flutter with variable AV block, rate of 150, QRS duration 94, QTC [address] segment elevation Medical Decision Making - Medical Decision Making 67-year-old female presenting with worsening cough and dyspnea. Patient is found to have elevated heart rate, EKG shows atrial flutter with variable block at a rate of 150. Patient is on Coumadin. Denies any chest pain. On exam patient is wheezing throughout with bronchospastic cough and decreased lung sounds. She does have peripheral edema which is worse on the right. Workup included a chest x-ray which shows pulmonary edema and concern for pneumonia. Patient will be covered with Levaquin for possible pneumonia. Ultrasound is obtained given the asymmetric swelling of her right lower extremity, this is negative for DVT. She does have Doppler signals in his leg although Refill somewhat delayed. Pupils cell count is normal, hemoglobin stable. INR is subtherapeutic and patient is given additional dose of her Coumadin. BNP elevated at 1860 consistent with her chest x-ray which shows congestive heart failure. Her dyspnea is multifactorial including atrial fibrillation, COPD, and congestive heart failure. She'll be continued on treatment for COPD, antibiotics for possible pneumonia, Cardizem for atrial flutter with RVR and IV Lasix. Cardiology placed on consult. - Lab Data Result diagrams: 09/29/17 12:52 09/29/17 12:52 Lab Results 09/29/17 09/29/17 09/29/17 Range/Units 12:52 12:52 12:52 WBC 7.8 (3.8-10.6) k/uL RBC 4.57 (3.80-5.40) m/uL Hgb 14.7 (11.4-16.0) gm/dL Hct 45.2 (34.0-46.0) % MCV 98.8 (80.0-100.0) fL MCH 32.1 (25.0-35.0) pg MCHC 32.5 (31.0-37.0) g/dL RDW 14.4 (11.5-15.5) % Plt Count 171 (150-450) k/uL Neutrophils % 79 % Lymphocytes % 15 % Monocytes % 4 % Eosinophils % 1 % Basophils % 0 % Neutrophils # 6.2 (1.3-7.7) k/uL Lymphocytes # 1.1 (1.0-4.8) k/uL Monocytes # 0.3 (0-1.0) k/uL Eosinophils # 0.1 (0-0.7) k/uL Basophils # 0.0 (0-0.2) k/uL Hypochromasia Slight PT (9.0-12.0) sec INR (<1.2) APTT (22.0-30.0) sec Sodium 141 (137-145) mmol/L Potassium 5.0 (3.5-5.1) mmol/L Chloride 104 (98-107) mmol/L Carbon Dioxide 24 (22-30) mmol/L Anion Gap 13 mmol/L BUN 19 H (7-17) mg/dL Creatinine 0.70 (0.52-1.04) mg/dL Est GFR (CKD-EPI)AfAm >90 (>60 ml/min/1.73 sqM) Est GFR (CKD-EPI)NonAf 90 (>60 ml/min/1.73 sqM) Glucose 131 H (74-99) mg/dL Calcium 9.7 (8.4-10.2) mg/dL Magnesium 1.9 (1.6-2.3) mg/dL Total Bilirubin 2.3 H (0.2-1.3) mg/dL AST 43 H (14-36) U/L ALT 45 (9-52) U/L Alkaline Phosphatase 129 H (38-126) U/L Total Creatine Kinase 46 (30-135) U/L CK-MB (CK-2) 1.7 (0.0-2.4) ng/mL CK-MB (CK-2) Rel Index 3.7 Troponin I 0.013 (0.000-0.034) ng/mL NT-Pro-B Natriuret Pep pg/mL Total Protein 7.4 (6.3-8.2) g/dL Albumin 4.1 (3.5-5.0) g/dL 09/29/17 09/29/17 Range/Units 12:52 12:52 WBC (3.8-10.6) k/uL RBC (3.80-5.40) m/uL Hgb (11.4-16.0) gm/dL Hct (34.0-46.0) % MCV (80.0-100.0) fL MCH (25.0-35.0) pg MCHC (31.0-37.0) g/dL RDW (11.5-15.5) % Plt Count (150-450) k/uL Neutrophils % % Lymphocytes % % Monocytes % % Eosinophils % % Basophils % % Neutrophils # (1.3-7.7) k/uL Lymphocytes # (1.0-4.8) k/uL Monocytes # (0-1.0) k/uL Eosinophils # (0-0.7) k/uL Basophils # (0-0.2) k/uL Hypochromasia PT 11.9 (9.0-12.0) sec INR 1.2 H (<1.2) APTT 23.6 (22.0-30.0) sec Sodium (137-145) mmol/L Potassium (3.5-5.1) mmol/L Chloride (98-107) mmol/L Carbon Dioxide (22-30) mmol/L Anion Gap mmol/L BUN (7-17) mg/dL Creatinine (0.52-1.04) mg/dL Est GFR (CKD-EPI)AfAm (>60 ml/min/1.73 sqM) Est GFR (CKD-EPI)NonAf (>60 ml/min/1.73 sqM) Glucose (74-99) mg/dL Calcium (8.4-10.2) mg/dL Magnesium (1.6-2.3) mg/dL Total Bilirubin (0.2-1.3) mg/dL AST (14-36) U/L ALT (9-52) U/L Alkaline Phosphatase (38-126) U/L Total Creatine Kinase (30-135) U/L CK-MB (CK-2) (0.0-2.4) ng/mL CK-MB (CK-2) Rel Index Troponin I (0.000-0.034) ng/mL NT-Pro-B Natriuret Pep 1860 pg/mL Total Protein (6.3-8.2) g/dL Albumin (3.5-5.0) g/dL Critical Care Time Critical Care Time: Yes Total Critical Care Time: 35 Disposition Clinical Impression: Systolic CHF, acute on chronic, Systolic congestive heart failure, Acute exacerbation of chronic obstructive airways disease, Atrial fibrillation with RVR Disposition: ADMITTED IP TO THIS HOSP Condition: Stable Is patient prescribed a controlled substance at d/c from ED?: No Referrals: Du Lancaster MD [Primary Care Provider] - 1-2 days Decision to Admit Reason: Admit from EC Decision Date: 09/29/17 Decision Time: 21:06
[2017-09-29 18:59] LABS: Basophils % (A) 0 %; Eosinophils # (A) 0.1 k/uL (0-0.7); Eosinophils % (A) 1 %; HCT 45.2 % (34.0-46.0); HGB 14.7 gm/dL (11.4-16.0); Hypochromasia Slight; Lymphocytes # (A) 1.1 k/uL (1.0-4.8); Lymphocytes % (A) 15 %; MCH 32.1 pg (25.0-35.0); MCHC 32.5 g/dL (31.0-37.0); MCV 98.8 fL (80.0-100.0); Mean Platelet Volume 7.5; Monocytes # (A) 0.3 k/uL (0-1.0); Monocytes % (A) 4 %; Neutrophils # (A) 6.2 k/uL (1.3-7.7); Neutrophils % (A) 79 %; Platelet Count 171 k/uL (150-450); RBC 4.57 m/uL (3.80-5.40); RDW 14.4 % (11.5-15.5); WBC 7.8 k/uL (3.8-10.6)
[2017-09-29 19:16] LABS: ALT 45 U/L (9-52); AST 43 U/L (14-36); Albumin 4.1 g/dL (3.5-5.0); Alkaline Phosphatase 129 U/L (38-126); Anion Gap 13 mmol/L; Blood Urea Nitrogen 19 mg/dL (7-17); Calcium 9.7 mg/dL (8.4-10.2); Carbon Dioxide 24 mmol/L (22-30); Chloride 104 mmol/L (98-107); Glucose 131 mg/dL (74-99); Magnesium 1.9 mg/dL (1.6-2.3); Sodium 141 mmol/L (137-145); Total Bilirubin 2.3 mg/dL (0.2-1.3); Total Protein 7.4 g/dL (6.3-8.2)
[2017-09-29 19:17] LABS: INR 1.2 (<1.2); Partial Thromboplastin Time 23.6 sec (22.0-30.0); Prothrombin Time 11.9 sec (9.0-12.0)
[2017-09-29 19:27] LABS: Creatine Kinase MB 1.7 ng/mL (0.0-2.4); Troponin I 0.013 ng/mL (0.000-0.034)
[2017-09-29] MEDS ORDERED: FUROSEMIDE 10 MG/ML 4 ML VIAL IV STA (19:35)
--- NOTE | 2017-09-29 20:08 | XR ---
EXAMINATION TYPE: XR chest 2V DATE OF EXAM: 09/29/2017 COMPARISON: 08/17/2017 TECHNIQUE: PA and lateral views submitted. HISTORY: Difficulty breathing FINDINGS: Cardiomegaly and diffuse interstitial pattern. No pneumothorax. Tiny left pleural effusion and basila r infiltrate. IMPRESSION: 1. Correlate for CHF underlying pneumonia at the left lung base not excluded.
--- NOTE | 2017-09-29 20:27 | US ---
EXAMINATION TYPE: US venous doppler duplex LE RT DATE OF EXAM: 09/29/2017 8:13 PM COMPARISON: 05/15/2017 CLINICAL HISTORY: Pain. Rt leg swelling and redness SIDE PERFORMED: Right TECHNIQUE: The lower extremity deep venous system is examined utilizing real time linear array sonog joaquin with graded compression, doppler sonography and color-flow sonography. VESSELS IMAGED: External Iliac Vein (EIV) Common Femoral Vein Deep Femoral Vein Greater Saphenous Vein * Femoral Vein Popliteal Vein Small Saphenous Vein * Proximal Calf Veins (* superficial vessels) Restless patient with labored breathing, difficult scan Right Leg: Visualized portions appeared negative for DVT/ pt unable to tolerate compressions within popliteal fossa, unable to visualize proximal calf veins due to edema IMPRESSION: 1. Limited exam as discussed above demonstrates no diagnostic evidence of DVT as visualized. See abov e regarding limitations of exam.
[2017-09-29] MEDS ORDERED: WARFARIN 5 MG TAB PO STA (20:56)
[2017-09-29] MEDS ORDERED: IPRATROPIUM-ALBUTEROL 3 ML NEB INHALATION PRN (20:58)
[2017-09-29] MEDS ORDERED: FUROSEMIDE 10 MG/ML 4 ML VIAL IV SCH (21:00)
[2017-09-29] MEDS: IPRATROPIUM-ALBUTEROL 3 ML NEB INHALATION STA ×2 (21:23→21:29)
[2017-09-29] MEDS ORDERED: LORazepam 2 MG/ML INJ IV STA (21:26)
[2017-09-29] MEDS: DILTIAZEM 50 MG in SODIUM CHLORIDE 0.9% 40 ML IV ONE ×2 (23:03→23:59)
[2017-09-29] MEDS: METOPROLOL TARTRATE 25 MG TAB PO SCH (23:57)
[2017-09-30 03:17] VITALS: BMI 37.4
[2017-09-30] MEDS: IPRATROPIUM-ALBUTEROL 3 ML NEB INHALATION SCH ×5 (07:33→20:02)
[2017-09-30] MEDS: METOPROLOL TARTRATE 25 MG TAB PO SCH ×2 (08:07→21:57)
[2017-09-30] MEDS: predniSONE 20 MG TAB PO SCH (08:07)
[2017-09-30] MEDS: LEVOFLOXACIN 500 MG TAB PO SCH (08:07)
[2017-09-30] MEDS ORDERED: SPIRONOLACTONE 25 MG TAB PO SCH (09:00)
[2017-09-30] MEDS ORDERED: FUROSEMIDE 10 MG/ML 4 ML VIAL IV SCH ×2 (09:00→11:03)
[2017-09-30] MEDS ORDERED: FUROSEMIDE 10 MG/ML 2 ML VIAL IV STA (11:51)
[2017-09-30] MEDS: DIGOXIN 250 MCG TAB PO SCH (11:53)
--- NOTE | 2017-09-30 12:02 | CONS ---
PA Liang is a 67-year-old lady with history of COPD, chronic atrial fibrillation, who presented to hospital complaining of worsening shortness of breath, cough and productive sputum. She did not have any fevers. Her symptoms have been gradually getting worse over the last 3 days. She also has chronic lower extremity edema. She was found to be in atrial fibrillation with rapid ventricular rate and is admitted to hospital with a diagnosis of COPD and CHF exacerbation. She is currently on IV Lasix on medications to control the heart rate. She is on Coumadin. INR is subtherapeutic. PAST MEDICAL HISTORY: Significant for COPD and congestive heart failure and atrial fibrillation. MEDICATIONS: At home include Coumadin, Aldactone, Lasix, Lopressor, Lanoxin Ventolin, Symbicort, Spiriva. ALLERGIES: There are no known drug allergies. FAMILY HISTORY: Negative for premature coronary artery disease. SOCIAL HISTORY: Significant for smoking. There is no history of EtOH abuse or drug abuse. PAST SURGICAL HISTORY: Significant for hernia repair, tonsillectomy, section. REVIEW OF SYSTEMS: HEENT is unremarkable. Cardiac as described above. Respiratory as described above. GI negative. Genitourinary negative. Allergy/Immunology: None. Skin negative. Musculoskeletal significant for arthritis. Psychosocial negative. Endocrine: None. Derm: Negative. Constitutional: Negative. HEMATOLOGICAL: Negative. Oncological negative. The rest of the system review is not relevant. PHYSICAL EXAM: On exam, comfortable at rest. Heart rate is in the 100s, blood pressure is 85/50. Respiratory is 20, O2 sat is 96% on 3 L. There is no jugular venous distention. Chest exam reveals bilateral rhonchi and a crackles at the bases. Heart exam reveals first and second heart sounds, irregular rhythm and a systolic murmur at the apex. Abdomen is soft. Exam of the extremities reveals bilateral pitting edema. LAB: Show a hemoglobin of 14.7, platelet count is 170. Potassium is 5, creatinine [place] 0[place] [address]. ASSESSMENT: 1. Acute exacerbation of chronic systolic heart failure. 2. Chronic obstructive pulmonary disease exacerbation. 3. Chronic atrial fibrillation with poorly controlled ventricular rate. 4. Hypotension. PLAN: I will continue the IV Lasix at a lower dose. I will continue the digoxin and the metoprolol. Once the blood pressure improves, we will consider adding an CHANDRIKA inhibitor. I will stop the Aldactone. She had an echocardiogram in April that showed an ejection fraction of 45% with moderate mitral regurgitation and mitral stenosis along with moderate pulmonary hypertension. MMSANDOVAL / IJN: [id number] /
[2017-09-30] MEDS: AMIODARONE 200 MG TAB PO SCH ×2 (14:09→21:57)
[2017-09-30] MEDS: WARFARIN 3 MG TAB PO SCH (17:01)
[2017-09-30] MEDS: DILTIAZEM 50 MG in SODIUM CHLORIDE 0.9% 40 ML IV SCH (18:31)
[2017-09-30] MEDS: FUROSEMIDE 10 MG/ML 2 ML VIAL IV SCH (22:28)
--- NOTE | 2017-09-30 23:39 | P.HPIM ---
History of Present Illness H&P Date: 09/30/17 Chief Complaint: Shortness of breath Ms. Mills is a 67-year-old female with a past medical history of right-sided hemiplegia due to stroke in the past, atrial fibrillation, hypertension, hyperlipidemia, osteoarthritis, congestive heart failure and COPD admitted to the hospital with a chief complaint of worsening lower extremity edema and difficulty in breathing. Patient cannot speak due to history of stroke she can only answer yes or no to the questions asked. Patient has been having difficulty in breathing and lower extremity swelling going on for the past 1 week and so the family members urged her to go to the hospital. As the patient had wheezing at the time of admission and chest x-ray was showing pulmonary edema and concern for pneumonia she was admitted for COPD exacerbation. Due to her right lower extremity swelling and ultrasound Doppler was performed that was negative for DVT. Patient was found to be in A. fib with rapid ventricular rate and so she was started on Cardizem drip and also given IV Lasix and admitted to the floor for further management. Review of Systems REVIEW OF SYSTEMS: PSYCH:no anxiety or depression NEURO:Right sided hemiplegia due to stroke VASCULAR: bilateral LE swelling right more than left HEMATOLOGIC: No history of easy bleeding and bruising . No recent infections . RESPIRATORY: No cough, No SOB, No chest discomfort. IMMUNE: No infections INTEGUMENT: no rashes OPHTHALMOLOGIC: No blurry vision and no eye discharge : No dysuria or hematuria CARDIAC: No orthopnea or PND. MUSCULOSKELETAL : No Aches or pains in the joints or muscles. GI: No abdominal pain, Nausea or vomiting. No constipation or diarrhea. 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 History of Any Multi-Drug Resistant Organisms: None Reported Past Surgical History: Section, Hernia Repair, Orthopedic Surgery, Tonsillectomy Additional Past Surgical History / Comment(s): Incarcerated umbilical hernia repair/omentum resection, X2, L tibial IM nailing, teeth extractions. Past Anesthesia/Blood Transfusion Reactions: No Reported Reaction Smoking Status: Current every day smoker - Past Family History Father Family Medical History: Unable to Obtain Additional Family Medical History / Comment(s): FATHER WAS HEALTHY AND LIVED TO BE 96YRS OLD. Mother Family Medical History: Cancer Additional Family Medical History / Comment(s): MOTHER HAD BREAST CANCER. Medications and Allergies Home Medications Medication Instructions Recorded Confirmed Type Digoxin [Lanoxin] 250 mcg PO DAILY #30 tab 04/27/15 09/30/17 Rx Budesonide-Formot 160-4.5 Mcg 2 puff INHALATION RT-BID 05/01/17 09/30/17 History [Symbicort 160-4.5 Mcg Inhaler] Tiotropium [place] [Spiriva] 1 cap INHALATION RT-DAILY 05/01/17 09/30/17 History Albuterol Nebulized [Ventolin 2.5 mg INHALATION RT-QID PRN 08/17/17 09/30/17 History Nebulized] Furosemide [Lasix] 40 mg PO DAILY #30 tab 08/19/17 09/30/17 Rx Spironolactone [Aldactone] 25 mg PO DAILY #30 tab 08/19/17 09/30/17 Rx Warfarin [Coumadin] 6 mg PO DAILY #30 tab 08/19/17 09/30/17 Rx Allergies Allergy/AdvReac Type Severity Reaction Status Date / Time No Known Allergies Allergy Verified 09/29/17 18:36 Physical Exam Vitals: Vital Signs Temp Pulse Pulse Resp BP BP Pulse Ox 09/30/17 11:52 97.5 F L 97 18 102/64 96 09/30/17 11:35 88 09/30/17 11:25 90 09/30/17 10:02 86 18 85/53 96 09/30/17 08:00 99.4 F 138 H 20 90/63 98 09/30/17 07:44 136 H 09/30/17 07:34 136 H 09/30/17 04:00 96.7 F L 114 H 18 120/65 94 L 09/30/17 00:00 96.8 F L 129 H 20 102/76 95 09/29/17 22:13 128 H 09/29/17 22:00 130 H 124/81 95 09/29/17 21:39 128 H 09/29/17 21:29 136 H 09/29/17 21:00 137 H 34 H 146/99 100 09/29/17 20:36 130 H 32 H 117/74 94 L 09/29/17 19:53 128 H 24 111/55 93 L 09/29/17 19:38 131 H 24 118/61 2 L 09/29/17 19:28 134 H 16 133/82 97 09/29/17 19:21 130 H 09/29/17 18:59 136 H 09/29/17 18:39 98.6 F 140 H 20 146/106 95 Intake and Output 09/30/17 09/30/17 09/30/17 06:59 14:59 22:59 Intake Total 40 360 Output Total 500 Balance -460 360 Intake: Intake, IV Titration 40 Amount Diltiazem 50 mg In Sodium 40 Chloride 0.9% 40 ml @ 5 MG/HR 5 mls/hr IV .Q10H [facility] Rx#:[id number] Oral 360 Output: Urine 500 Other: Voiding Method Indwelling Catheter Indwelling Catheter GENERAL EXAM GEN. APPEARANCE: alert, in no apparent distress HEAD EXAM: atraumatic, normocephalic, normal inspection EYE EXAM: normal appearance, PERRL, EOMI. Absent: scleral icterus, conjunctival injection, periorbital swelling ENT EXAM: normal exam, mucous membranes moist NECK EXAM: normal inspection. Absent: tenderness, meningismus, full ROM, lymphadenopathy RESPIRATORY EXAM: bilateral mild wheezing and crackles in both lower lung moraes CARDIOVASCULAR EXAM: irregularly irregular , rapid rate GI/ABDOMINAL EXAM: soft, normal bowel sounds. Absent: distended, tenderness, guarding, rebound, rigid EXTREMITIES EXAM: bilateral pitting edema,right more than left.there are early signs of cellulitis in the right lower extremity. NEUROLOGICAL EXAM: alert, right sided hemiplegia PSYCHIATRIC EXAM: normal affect, normal mood SKIN EXAM: warm, dry, intact, normal color. Absent: rash Results CBC & Chem 7: 09/29/17 12:52 09/29/17 12:52 Labs: Abnormal Lab Results - Last 24 Hours (Table) 09/29/17 09/29/17 Range/Units 12:52 12:52 INR 1.2 H (<1.2) BUN 19 H (7-17) mg/dL Glucose 131 H (74-99) mg/dL Total Bilirubin 2.3 H (0.2-1.3) mg/dL AST 43 H (14-36) U/L Alkaline Phosphatase 129 H (38-126) U/L Thrombosis Risk Factor Assmnt - Choose All That Apply Each Risk Factor Represents 2 Points: Age 61-74 years Thrombosis Risk Factor Assessment Total Risk Factor Score: 2 Thrombosis Risk Factor Assessment Level: Low Risk Assessment and Plan Assessment: ASSESSMENT Acute COPD exacerbation Acute exacerbation of chronic systolic heart failure Atrial fibrillation with rapid ventricular rate Right lower extremity cellulitis Left lower lobe pneumonia Subtherapeutic INR Right-sided hemiplegia due to stroke GERD Hypertension Hyperlipidemia Osteoarthritis Elevated bilirubin Elevated alkaline phosphatase PLAN: After the patient was started on IV Cardizem drip the patient developed hypotension for which the drip has been discontinued and started on p.o. She was continued on digoxin , amiodarone and metoprolol. Continue with IV Lasix will obtain an echocardiogram. Continue with levofloxacin which would cover her pneumonia and right lower extremity cellulitis. Continue with prednisone and breathing treatments. Resume her home medications. Will monitor PT/INR. Further recommendations to follow depending on the progress of the patient.
[2017-10-01 00:55] VITALS: RESP 18
[2017-10-01] MEDS: DILTIAZEM 50 MG in SODIUM CHLORIDE 0.9% 40 ML IV SCH ×2 (01:53→12:42)
[2017-10-01 06:51] LABS: Basophils % (A) 0 %; Eosinophils % (A) 0 %; HCT 45.4 % (34.0-46.0); Hypochromasia Slight; Lymphocytes % (A) 7 %; MCH 30.5 pg (25.0-35.0); MCHC 30.9 g/dL (31.0-37.0); MCV 98.9 fL (80.0-100.0); Mean Platelet Volume 7.7; Monocytes # (A) 0.7 k/uL (0-1.0); Monocytes % (A) 5 %; Neutrophils # (A) 11.3 k/uL (1.3-7.7); Neutrophils % (A) 87 %; Platelet Count 229 k/uL (150-450); RBC 4.59 m/uL (3.80-5.40); WBC 12.9 k/uL (3.8-10.6)
[2017-10-01 06:59] LABS: Albumin 4.1 g/dL (3.5-5.0); Calcium 9.6 mg/dL (8.4-10.2); Potassium 5.5 mmol/L (3.5-5.1); Total Bilirubin 1.6 mg/dL (0.2-1.3)
[2017-10-01] MEDS: IPRATROPIUM-ALBUTEROL 3 ML NEB INHALATION SCH ×4 (07:55→19:54)
[2017-10-01] MEDS: METOPROLOL TARTRATE 25 MG TAB PO SCH (08:45)
[2017-10-01] MEDS: AMIODARONE 200 MG TAB PO SCH (08:46)
[2017-10-01] MEDS: predniSONE 20 MG TAB PO SCH (08:46)
[2017-10-01] MEDS: DIGOXIN 250 MCG TAB PO SCH (08:46)
[2017-10-01] MEDS: LEVOFLOXACIN 500 MG TAB PO SCH (08:46)
[2017-10-01] MEDS: FUROSEMIDE 10 MG/ML 2 ML VIAL IV SCH ×2 (08:46→19:48)
--- NOTE | 2017-10-01 09:09 | P.PN ---
Subjective Principal diagnosis: Patient mildly short of breath, denies any chest discomfort On examination her breath sounds are reduced bilaterally with bilateral rhonchi Rhythm is irregular Afebrile 97.5F pulse rate in the 80s, blood pressure 110/72 mmHg, pulse ox 94% on room air Abdomen is soft Impression Atrial fibrillation/atrial tachycardia with RVR, permanent CHF exacerbation, acute on chronic systolic COPD exacerbation Mitral valve disease moderate MR and moderate MS moderate pulmonary hypertension Left ventricular systolic function 45% by 2-D echo in April Suggest Increase metoprolol to 50 mg twice daily Continue warfarin May switch to by mouth Lasix tomorrow Reduce digoxin I would hold off on amiodarone Try stopping diltiazem drip over the next 24 hours, once metoprolol takes effect TSH level Objective - Vital Signs Vital signs: Vital Signs Temp 97.5 F L 10/01/17 08:49 Pulse 82 10/01/17 08:49 Resp 18 10/01/17 08:49 BP 110/72 10/01/17 08:49 Pulse Ox 94 L 10/01/17 08:49 Intake & Output 09/30/17 10/01/17 10/01/17 18:59 06:59 18:59 Intake Total 822 36.833 240 Output Total 600 375 700 Balance 222 -338.167 -460 Intake: Intake, IV Titration 36.833 Amount Diltiazem 50 mg In Sodium 36.833 Chloride 0.9% 40 ml @ 5 MG/HR 5 mls/hr IV .Q10H [facility] Rx#:[id number] Oral 822 240 Output: Urine 600 375 700 Other: Voiding Method Indwelling Catheter Indwelling Catheter Indwelling Catheter # Voids 1 2 # Bowel Movements 1 - Labs CBC & Chem 7: 10/01/17 06:11 10/01/17 06:11 Labs: Abnormal Lab Results - Last 24 Hours (Table) 10/01/17 10/01/17 Range/Units 06:11 06:11 WBC 12.9 H (3.8-10.6) k/uL MCHC 30.9 L (31.0-37.0) g/dL Neutrophils # 11.3 H (1.3-7.7) k/uL Potassium 5.5 H (3.5-5.1) mmol/L BUN 43 H (7-17) mg/dL Creatinine 1.10 H (0.52-1.04) mg/dL Glucose 129 H (74-99) mg/dL Total Bilirubin 1.6 H (0.2-1.3) mg/dL Microbiology - Last 24 Hours (Table) 09/29/17 12:52 Blood Culture - Preliminary Blood No Growth after 24 hours
--- NOTE | 2017-10-01 11:29 | P.PN ---
Subjective Patient resting in bed noted to continue with cough and wheeze. Family at bedside Objective - Vital Signs Vital signs: Vital Signs Temp 97.5 F L 10/01/17 08:49 Pulse 82 10/01/17 08:49 Resp 18 10/01/17 08:49 BP 110/72 10/01/17 08:49 Pulse Ox 94 L 10/01/17 08:49 Intake & Output 09/30/17 10/01/17 10/01/17 18:59 06:59 18:59 Intake Total 822 36.833 240 Output Total 600 375 700 Balance 222 -338.167 -460 Intake: Intake, IV Titration 36.833 Amount Diltiazem 50 mg In Sodium 36.833 Chloride 0.9% 40 ml @ 5 MG/HR 5 mls/hr IV .Q10H [facility] Rx#:[id number] Oral 822 240 Output: Urine 600 375 700 Other: Voiding Method Indwelling Catheter Indwelling Catheter Indwelling Catheter # Voids 1 2 # Bowel Movements 1 - Constitutional General appearance: Present: mild distress, obese - EENT Eyes: Present: PERRLA Ears: bilateral: normal - Neck Neck: Present: normal ROM - Respiratory Respiratory: bilateral: diminished, wheezing - Cardiovascular Rhythm: irregularly irregular - Gastrointestinal General gastrointestinal: Present: soft - Integumentary Integumentary: Present: normal - Musculoskeletal Musculoskeletal: Present: right sided weakness - Psychiatric Psychiatric Comment(s): Patient unable to verbalize secondary to old CVA - Labs CBC & Chem 7: 10/01/17 06:11 10/01/17 06:11 Labs: Abnormal Lab Results - Last 24 Hours (Table) 10/01/17 10/01/17 Range/Units 06:11 06:11 WBC 12.9 H (3.8-10.6) k/uL MCHC 30.9 L (31.0-37.0) g/dL Neutrophils # 11.3 H (1.3-7.7) k/uL Potassium 5.5 H (3.5-5.1) mmol/L BUN 43 H (7-17) mg/dL Creatinine 1.10 H (0.52-1.04) mg/dL Glucose 129 H (74-99) mg/dL Total Bilirubin 1.6 H (0.2-1.3) mg/dL Microbiology - Last 24 Hours (Table) 09/29/17 12:52 Blood Culture - Preliminary Blood No Growth after 24 hours - Imaging and Cardiology Chest x-ray: report reviewed Assessment and Plan Plan: Assessment Acute COPD exacerbation has been smoking last 8 months quit prior to admission Congestive heart failure chronic systolic heart failure Atrial fibrillation with RVR Right lower leg cellulitis Left lower lobe pneumonia Subtherapeutic INR right-sided hemiplegia secondary to stroke Expressive aphasia GERD Hypertension Hyperlipidemia Osteoarthritis Elevated bilirubin improved Plan Pneumonia treated bronchodilators steroids and Levaquin Continue cardiology consultation
[2017-10-01] MEDS: WARFARIN 3 MG TAB PO SCH (17:06)
[2017-10-01] MEDS: METOPROLOL TARTRATE 50 MG TAB PO SCH (19:48)
[2017-10-02] MEDS: DILTIAZEM 50 MG in SODIUM CHLORIDE 0.9% 40 ML IV SCH ×2 (00:39→11:07)
[2017-10-02] MEDS: IPRATROPIUM-ALBUTEROL 3 ML NEB INHALATION SCH ×4 (07:31→20:27)
[2017-10-02] MEDS: METOPROLOL TARTRATE 50 MG TAB PO SCH ×2 (08:04→20:14)
[2017-10-02] MEDS: DIGOXIN 125 MCG TAB PO SCH (08:04)
[2017-10-02] MEDS: LEVOFLOXACIN 250 MG TAB PO SCH (08:04)
[2017-10-02] MEDS: predniSONE 20 MG TAB PO SCH (08:04)
[2017-10-02] MEDS: FUROSEMIDE 10 MG/ML 2 ML VIAL IV SCH (08:04)
[2017-10-02 10:04] LABS: Calcium 9.2 mg/dL (8.4-10.2); Potassium 4.8 mmol/L (3.5-5.1)
--- NOTE | 2017-10-02 11:07 | P.PN ---
Subjective Patient resting in bed, seems improved from yesterday. Potassium normal level. Continues on Cardizem drip Objective - Vital Signs Vital signs: Vital Signs Temp 97.6 F 10/02/17 08:09 Pulse 102 H 10/02/17 08:09 Resp 18 10/02/17 08:09 BP 118/79 10/02/17 08:09 Pulse Ox 99 10/02/17 08:09 Intake & Output 10/01/17 10/02/17 10/02/17 18:59 06:59 18:59 Intake Total 770 290 0 Output Total 700 1250 Balance 70 -960 0 Weight 94.4 kg Intake: Intake, IV Titration 50 50 Amount Diltiazem 50 mg In Sodium 50 50 Chloride 0.9% 40 ml @ 5 MG/HR 5 mls/hr IV .Q10H [facility] Rx#:[id number] Oral 720 240 0 Output: Urine 700 1250 Other: Voiding Method Indwelling Catheter Indwelling Catheter Indwelling Catheter # Voids 3 0 # Bowel Movements 2 1 - Constitutional General appearance: Present: mild distress, obese - EENT Eyes: Present: PERRLA Ears: bilateral: normal - Neck Neck: Present: normal ROM - Respiratory Respiratory: bilateral: diminished - Cardiovascular Rhythm: irregularly irregular - Gastrointestinal General gastrointestinal: Present: soft - Integumentary Integumentary Comment(s): Venous stasis discoloration to lower extremities - Neurologic Neurologic: Present: CNII-XII intact - Musculoskeletal Musculoskeletal: Present: right sided weakness - Psychiatric Psychiatric Comment(s): Recent has expressive aphasia - Labs CBC & Chem 7: 10/01/17 06:11 10/02/17 08:46 Labs: Abnormal Lab Results - Last 24 Hours (Table) 10/02/17 Range/Units 08:46 BUN 51 H (7-17) mg/dL Creatinine 1.09 H (0.52-1.04) mg/dL Glucose 131 H (74-99) mg/dL Microbiology - Last 24 Hours (Table) 09/29/17 12:52 Blood Culture - Preliminary Blood No Growth after 48 hours Assessment and Plan Plan: Assessment Acute exacerbation of COPD Congestive heart failure systolic dysfunction Atrial fibrillation with RVR on Cardizem drip Right lower extremity cellulitis Left lower pneumonia right-sided hemiplegia secondary to stroke GERD Hypertension hyperlipidemia Elevated bilirubin improved Plan Continue consultation with cardiology patient continues on Cardizem drip Pneumonia treatment includes steroids bronchodilators and Levaquin
--- NOTE | 2017-10-02 12:10 | P.PN ---
Subjective Progress Note Date: 10/02/17 This is a 67-year-old female past medical history significant for nonischemic cardiomyopathy, dyslipidemia, hypertension, chronic, persistent atrial fibrillation, COPD, GERD, renal disease, nicotine dependence and prior CVA. Patient presented to the hospital with symptoms of worsening shortness of breath with associated cough and productive sputum, she denied having any fever at home. The patient was initially seen in consultation by Dr. Bosch who felt that she had a mild exacerbation of congestive cardiac failure as well as exacerbation of COPD. Echocardiogram with Doppler study performed in April revealed an ejection fraction of 45% with moderate MR and mitral stenosis as well as moderate pulmonary hypertension. Patient has diuresed well on IV Lasix. Sodium today 143, potassium 4.8, BUN 51, creatinine 1.0. We will discontinue the IV Lasix today and start the patient on oral diuretics. Repeat chest x-ray. Objective - Vital Signs Vital signs: Vital Signs Temp 97.6 F 10/02/17 11:53 Pulse 102 H 10/02/17 11:53 Resp 18 10/02/17 11:53 BP 97/69 10/02/17 11:53 Pulse Ox 96 10/02/17 11:53 Intake & Output 10/01/17 10/02/17 10/02/17 18:59 06:59 18:59 Intake Total 770 290 50 Output Total 700 1250 Balance 70 -960 50 Weight 94.4 kg Intake: Intake, IV Titration 50 50 50 Amount Diltiazem 50 mg In Sodium 50 50 50 Chloride 0.9% 40 ml @ 5 MG/HR 5 mls/hr IV .Q10H [facility] Rx#:[id number] Oral 720 240 0 Output: Urine 700 1250 Other: Voiding Method Indwelling Catheter Indwelling Catheter Indwelling Catheter # Voids 3 0 # Bowel Movements 2 1 - Exam PHYSICAL EXAMINATION: GENERAL: 67-year-old female in no apparent distress at the time of my examination. HEENT: Head is atraumatic, normocephalic. Pupils equal, round. Sclera anicteric. Conjunctiva are clear. Mucous membranes of the mouth are moist. Neck is supple. There is no elevated jugular venous pressure.] bruit is heard. HEART EXAMINATION: Heart S1 and S2 systolic murmur is heard. CHEST EXAMINATION: Lungs are clear to auscultation and precussion. No chest wall tenderness is noted on palpation or with deep breathing. ABDOMEN: Soft, nontender. Bowel sounds are heard. No organomegaly noted. EXTREMITIES: 2+ peripheral pulses with no evidence of peripheral edema and no calf tenderness noted. NEUROLOGIC patient is awake, alert and oriented -3. . - Labs CBC & Chem 7: 10/01/17 06:11 10/02/17 08:46 Labs: Abnormal Lab Results - Last 24 Hours (Table) 10/02/17 Range/Units 08:46 BUN 51 H (7-17) mg/dL Creatinine 1.09 H (0.52-1.04) mg/dL Glucose 131 H (74-99) mg/dL Microbiology - Last 24 Hours (Table) 09/29/17 12:52 Blood Culture - Preliminary Blood No Growth after 48 hours Assessment and Plan Plan: Assessment and plan #1 systolic congestive heart failure acute on chronic #2 COPD exacerbation #3 chronic persistent atrial fibrillation, rate under better control. Plan We will discontinue the IV Lasix and start the patient on oral diuretics. Repeat chest x-ray. Patient continues to be in A. fib, her heart rate this morning in the 60s. DNP note has been reviewed, I agree with a documented findings and plan of care. Patient was seen and examined.
[2017-10-02] MEDS: WARFARIN 3 MG TAB PO SCH (16:29)
[2017-10-02] MEDS: FUROSEMIDE 20 MG TAB PO SCH (16:29)
--- NOTE | 2017-10-02 20:29 | XR ---
EXAMINATION TYPE: XR chest 2V DATE OF EXAM: 10/02/2017 COMPARISON: 09/29/2017 HISTORY: Follow-up heart failure TECHNIQUE: Frontal and lateral views of the chest are obtained. FINDINGS: Heart is enlarged. There is mild pulmonary congestion. There are chest leads. There is sli ght blunting of right costophrenic angle. IMPRESSION: There is mild congestive heart failure. There is increased right pleural effusion compar ed to last exam. No change in the heart failure.
[2017-10-03 01:28] VITALS: PULSE 102
[2017-10-03] MEDS: IPRATROPIUM-ALBUTEROL 3 ML NEB INHALATION SCH ×2 (07:30→11:16)
[2017-10-03] MEDS: predniSONE 20 MG TAB PO SCH (07:45)
[2017-10-03] MEDS: FUROSEMIDE 20 MG TAB PO SCH (07:45)
[2017-10-03] MEDS: METOPROLOL TARTRATE 50 MG TAB PO SCH (07:45)
[2017-10-03] MEDS: LEVOFLOXACIN 250 MG TAB PO SCH (07:45)
[2017-10-03] MEDS: DIGOXIN 125 MCG TAB PO SCH (07:45)
[2017-10-03 07:53] VITALS: BP 107/65; TEMP 97.5
--- NOTE | 2017-10-03 11:03 | P.DS ---
Providers Date of admission: 09/29/17 21:01 Expected date of discharge: 10/03/17 Attending physician: Du Lancaster Consults: 09/29/17 20:58 Consult Physician Routine Consulting Provider: Ernesto Lomax Consult Reason/Comments: A flutter with RVR, congestive heart failure Do you want consulting provider notified?: Yes Primary care physician: Du Lancaster Hospital Course: 67-year-old female was admitted to the emergency room with complaints of increasing shortness of breath. The patient was found to be in atrial fibrillation with RVR*Cardizem drip. Is also treated for pneumonia that is greatly improved. Patient is stabilized Assessment Acute exacerbation of COPD Acute exacerbation of congestive heart failure systolic failure Atrial fibrillation with RVR Cellulitis lower extremities Left lower lobe pneumonia Right-sided hemiplegia secondary to strokes GERD Hypertension Hyperlipidemia Elevated bilirubin improved Plan Medication adjusted To follow-up with family physician Dr. Du Lancaster and cardiology Patient Condition at Discharge: Stable Plan - Discharge Summary New Discharge Prescriptions: New Furosemide [Lasix] 20 mg PO BID@0900,1600 #60 tab Levofloxacin [Levaquin] 250 mg PO DAILY 4 Days #4 tab Metoprolol Tartrate [Lopressor] 50 mg PO BID 30 Days #60 tab Continue Digoxin [Lanoxin] 250 mcg PO DAILY #30 tab Tiotropium [place] [Spiriva] 1 cap INHALATION RT-DAILY Budesonide-Formot 160-4.5 Mcg [Symbicort 160-4.5 Mcg Inhaler] 2 puff INHALATION RT-BID Albuterol Nebulized [Ventolin Nebulized] 2.5 mg INHALATION RT-QID PRN PRN Reason: Shortness Of Breath Warfarin [Coumadin] 6 mg PO DAILY #30 tab Discontinued Spironolactone [Aldactone] 25 mg PO DAILY #30 tab Furosemide [Lasix] 40 mg PO DAILY #30 tab Discharge Medication List Digoxin [Lanoxin] 250 mcg PO DAILY #30 tab 04/27/15 [Rx] Budesonide-Formot 160-4.5 Mcg [Symbicort 160-4.5 Mcg Inhaler] 2 puff INHALATION RT-BID 05/01/17 [History] Tiotropium [place] [Spiriva] 1 cap INHALATION RT-DAILY 05/01/17 [History] Albuterol Nebulized [Ventolin Nebulized] 2.5 mg INHALATION RT-QID PRN 08/17/17 [ History] Warfarin [Coumadin] 6 mg PO DAILY #30 tab 08/19/17 [Rx] Furosemide [Lasix] 20 mg PO BID@0900,1600 #60 tab 10/03/17 [Rx] Levofloxacin [Levaquin] 250 mg PO DAILY 4 Days #4 tab 10/03/17 [Rx] Metoprolol Tartrate [Lopressor] 50 mg PO BID 30 Days #60 tab 10/03/17 [Rx] Follow up Appointment(s)/Referral(s): Du Lancaster MD [Primary Care Provider] - 10/11/17 10:10 am () [facility], [NON-STAFF] -
--- NOTE | 2017-10-03 13:47 | P.PN ---
Subjective Progress Note Date: 10/03/17 This is a 67-year-old female past medical history significant for nonischemic cardiomyopathy, dyslipidemia, hypertension, chronic, persistent atrial fibrillation, COPD, GERD, renal disease, nicotine dependence and prior CVA. Patient presented to the hospital with symptoms of worsening shortness of breath with associated cough and productive sputum, she denied having any fever at home. The patient was initially seen in consultation by Dr. Bosch who felt that she had a mild exacerbation of congestive cardiac failure as well as exacerbation of COPD. Echocardiogram with Doppler study performed in April revealed an ejection fraction of 45% with moderate MR and mitral stenosis as well as moderate pulmonary hypertension. Patient has diuresed well on IV Lasix. Sodium today 143, potassium 4.8, BUN 51, creatinine 1.0. We will discontinue the IV Lasix today and start the patient on oral diuretics. Repeat chest x-ray. 10/03/2017 Patient seen and examined this morning, feeling significantly better overall. On by mouth Lasix. Blood pressure 108/60 with a heart rate in the 80s, 94% on room air. Objective - Vital Signs Vital signs: Vital Signs Temp 97.5 F L 10/03/17 07:50 Pulse 102 H 10/03/17 07:50 Resp 18 10/03/17 07:50 BP 107/65 10/03/17 07:50 Pulse Ox 94 L 10/03/17 07:50 Intake & Output 10/02/17 10/03/17 10/03/17 18:59 06:59 18:59 Intake Total 530 125 Output Total 1400 0 Balance -870 0 125 Weight 93.8 kg Intake: Intake, IV Titration 50 Amount Diltiazem 50 mg In Sodium 50 Chloride 0.9% 40 ml @ 5 MG/HR 5 mls/hr IV .Q10H KALINA Rx#:[id number] Oral 480 125 Output: Urine 1400 0 Uretheral (Bermudez) 1400 Other: Voiding Method Indwelling Catheter Indwelling Catheter Indwelling Catheter # Voids 2 1 1 # Bowel Movements 0 0 0 - Exam PHYSICAL EXAMINATION: GENERAL: 67-year-old female in no apparent distress at the time of my examination. HEENT: Head is atraumatic, normocephalic. Pupils equal, round. Sclera anicteric. Conjunctiva are clear. Mucous membranes of the mouth are moist. Neck is supple. There is no elevated jugular venous pressure.] bruit is heard. HEART EXAMINATION: Heart S1 and S2 systolic murmur is heard. CHEST EXAMINATION: Lungs are clear to auscultation and precussion. No chest wall tenderness is noted on palpation or with deep breathing. ABDOMEN: Soft, nontender. Bowel sounds are heard. No organomegaly noted. EXTREMITIES: 2+ peripheral pulses with no evidence of peripheral edema and no calf tenderness noted. NEUROLOGIC patient is awake, alert and oriented -3. . - Labs CBC & Chem 7: 10/01/17 06:11 10/02/17 08:46 Labs: Microbiology - Last 24 Hours (Table) 09/29/17 12:52 Blood Culture - Preliminary Blood No Growth after 72 hours Assessment and Plan Plan: Assessment and plan #1 systolic congestive heart failure acute on chronic #2 COPD exacerbation #3 chronic persistent atrial fibrillation, rate under better control. Plan From cardiology's perspective, patient may be able to be discharged home today. We'll make a follow-up appointment post discharge. DNP note has been reviewed, I agree with a documented findings and plan of care. Patient was seen and examined.
== END 2017-10-03 12:18 | disposition home health service (06) | DRG 291 ==
LOC: EC 18:24 → 6SEL 21:01
PROVIDERS: ADMIT Family Medicine; ATTEND Family Medicine
DX: I11.0 Hypertensive heart disease with heart failure (principal); J18.9 Pneumonia, unspecified organism; I47.1 Supraventricular tachycardia; I48.92 Unspecified atrial flutter; I69.351 Hemiplegia and hemiparesis following cerebral infarction affecting right dominant side; J44.0 Chronic obstructive pulmonary disease with (acute) lower respiratory infection; J44.1 Chronic obstructive pulmonary disease with (acute) exacerbation; L03.115 Cellulitis of right lower limb; L03.116 Cellulitis of left lower limb; R17 Unspecified jaundice; I50.23 Acute on chronic systolic (congestive) heart failure; E78.5 Hyperlipidemia, unspecified; F17.200 Nicotine dependence, unspecified, uncomplicated; I05.0 Rheumatic mitral stenosis; I27.20 Pulmonary hypertension, unspecified; I42.9 Cardiomyopathy, unspecified; I48.2 Chronic atrial fibrillation; I69.320 Aphasia following cerebral infarction; K21.9 Gastro-esophageal reflux disease without esophagitis; M19.90 Unspecified osteoarthritis, unspecified site; I69.321 Dysphasia following cerebral infarction; R79.1 Abnormal coagulation profile; Z79.01 Long term (current) use of anticoagulants; Z79.51 Long term (current) use of inhaled steroids; Z80.3 Family history of malignant neoplasm of breast; R74.8 Abnormal levels of other serum enzymes; I95.9 Hypotension, unspecified
CPT/HCPCS: 36415; 71046; 80048; 80053; 82550; 82553; 83735; 83880; 84484; 85025; 85610; 85730; 87040; 93005; 94640; 94660; 94760; 96365; 96366; 96375; 96376; 99291

== ENCOUNTER 2017-11-02 13:30 | Inpatient (IN) | payer MEDICARE ==
[2017-11-02] MEDS ORDERED: FUROSEMIDE 10 MG/ML 4 ML VIAL IV STA (13:40)
[2017-11-02] MEDS ORDERED: IPRATROPIUM-ALBUTEROL 3 ML NEB INHALATION STA (13:40)
[2017-11-02] MEDS ORDERED: DILTIAZEM DRIP BOLUS FROM BAG 1 MG SOLN IV ONE (13:41)
--- NOTE | 2017-11-02 13:45 | ED ---
SOB HPI - General Stated Complaint: BP problems, SOB Time Seen by Provider: 11/02/17 13:33 Source: patient, family, RN notes reviewed, old records reviewed - History of Present Illness Initial Comments: This is a 67-year-old female history of CHF and COPD among other problems who is still smoking cigarettes who presents with complaints of shortness of breath which is been getting a prelude progressively worse over last day or so. She did see cardiology yesterday. She had a good day yesterday. Today she was very lethargic and could not ambulate without exertional dyspnea. No reports of fevers chills sweats nausea vomiting or other symptoms at this time. MD Complaint: shortness of breath - Related Data Home Medications Medication Instructions Recorded Confirmed Tiotropium [place] [Spiriva] 1 cap INHALATION RT-DAILY 05/01/17 11/02/17 Albuterol Nebulized [Ventolin 2.5 mg INHALATION RT-QID PRN 08/17/17 11/02/17 Nebulized] Furosemide [Lasix] 40 mg PO BID 11/02/17 11/02/17 Lisinopril [Zestril] 5 mg PO DAILY 11/02/17 11/02/17 Metoprolol Tartrate [Lopressor] 50 mg PO DAILY 11/02/17 11/02/17 Omeprazole 20 mg PO DAILY 11/02/17 11/02/17 Spironolactone [Aldactone] 25 mg PO DAILY 11/02/17 11/02/17 Warfarin [Coumadin] 5 mg PO HS 11/02/17 11/02/17 traMADol HCL [Ultram] 100 mg PO TID PRN 11/02/17 11/02/17 Previous Rx's Medication Instructions Recorded Digoxin [Lanoxin] 250 mcg PO DAILY #30 tab 04/27/15 Allergies Allergy/AdvReac Type Severity Reaction Status Date / Time No Known Allergies Allergy Verified 11/02/17 14:15 Review of Systems ROS Statement: Those systems with pertinent positive or pertinent negative responses have been documented in the HPI. ROS Other: All systems not noted in ROS Statement are negative. 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 History of Any Multi-Drug Resistant Organisms: None Reported Past Surgical History: Section, Hernia Repair, Orthopedic Surgery, Tonsillectomy Additional Past Surgical History / Comment(s): Incarcerated umbilical hernia repair/omentum resection, X2, L tibial IM nailing, teeth extractions. Past Anesthesia/Blood Transfusion Reactions: No Reported Reaction Smoking Status: Current every day smoker - Past Family History Father Family Medical History: Unable to Obtain Additional Family Medical History / Comment(s): FATHER WAS HEALTHY AND LIVED TO BE 96YRS OLD. Mother Family Medical History: Cancer Additional Family Medical History / Comment(s): MOTHER HAD BREAST CANCER. General Exam - General Exam Comments Initial Comments: This a well-developed well-nourished Limitations: physical limitation General appearance: alert, anxious, in distress Head exam: Present: atraumatic, normocephalic, normal inspection Eye exam: Present: normal appearance, PERRL, EOMI. Absent: scleral icterus, conjunctival injection, periorbital swelling ENT exam: Present: normal exam, mucous membranes moist Neck exam: Present: normal inspection. Absent: tenderness, meningismus, lymphadenopathy Respiratory exam: Present: wheezes, rales, decreased breath sounds. Absent: respiratory distress, rhonchi, stridor Cardiovascular Exam: Present: tachycardia, irregular rhythm. Absent: systolic murmur, diastolic murmur, rubs, gallop, clicks GI/Abdominal exam: Present: soft, normal bowel sounds. Absent: distended, tenderness, guarding, rebound, rigid Extremities exam: Present: full ROM, normal capillary refill, pedal edema, other (I lateral Pila edema with stasis changes.). Absent: tenderness, joint swelling, calf tenderness Back exam: Present: normal inspection Neurological exam: Present: alert, oriented X3, CN II-XII intact Psychiatric exam: Present: normal affect, normal mood Skin exam: Present: warm, dry, intact. Absent: rash Course Vital Signs 11/02/17 11/02/17 11/02/17 13:33 14:26 14:37 Temperature 97.8 F Pulse Rate 154 H 120 H 128 H Respiratory 32 H Rate Blood Pressure 125/93 O2 Sat by Pulse 88 L Oximetry 11/02/17 11/02/17 15:17 15:55 Temperature Pulse Rate 111 H 101 H Respiratory 20 18 Rate Blood Pressure 109/59 139/99 O2 Sat by Pulse 95 94 L Oximetry - Reevaluation(s) Reevaluation #1: 11/02/17 13:46 EKG continuation QT since QTC 304/473 left exodeviation low-voltage QRS and complete right bundle-branch block nonspecific ST configuration Reevaluation #2: 11/02/17 14:24 Smoking cessation: I did have a long discussion with patient regarding the risks and benefits of smoking the conversation lasted 3.1 minutes. Reevaluation #3: 11/02/17 16:11 Reevaluation the patient she does states she is feeling improved. Her heart rate has improved. Medical Decision Making - Medical Decision Making The patient is responding to therapy she will be admitted no infectious etiology appears to be evidence this time the elevated lactic acid is likely on the basis of renal function/intravascular fluid status. - Lab Data Result diagrams: 11/02/17 13:56 11/02/17 13:56 Lab Results 11/02/17 11/02/17 11/02/17 Range/Units 13:56 13:56 13:56 WBC 8.5 (3.8-10.6) k/uL RBC 4.71 (3.80-5.40) m/uL Hgb 14.5 (11.4-16.0) gm/dL Hct 46.0 (34.0-46.0) % MCV 97.5 (80.0-100.0) fL MCH 30.8 (25.0-35.0) pg MCHC 31.6 (31.0-37.0) g/dL RDW 15.4 (11.5-15.5) % Plt Count 249 (150-450) k/uL Neutrophils % 75 % Lymphocytes % 16 % Monocytes % 7 % Eosinophils % 1 % Basophils % 0 % Neutrophils # 6.4 (1.3-7.7) k/uL Lymphocytes # 1.4 (1.0-4.8) k/uL Monocytes # 0.6 (0-1.0) k/uL Eosinophils # 0.1 (0-0.7) k/uL Basophils # 0.0 (0-0.2) k/uL Hypochromasia Slight Macrocytosis Slight PT (9.0-12.0) sec INR (<1.2) APTT (22.0-30.0) sec Sodium 140 (137-145) mmol/L Potassium 4.2 (3.5-5.1) mmol/L Chloride 100 (98-107) mmol/L Carbon Dioxide 26 (22-30) mmol/L Anion Gap 14 mmol/L BUN 28 H (7-17) mg/dL Creatinine 0.90 (0.52-1.04) mg/dL Est GFR (CKD-EPI)AfAm 77 (>60 ml/min/1.73 sqM) Est GFR (CKD-EPI)NonAf 67 (>60 ml/min/1.73 sqM) Glucose 125 H (74-99) mg/dL Plasma Lactic Acid Thang (0.7-2.0) mmol/L Calcium 9.7 (8.4-10.2) mg/dL Magnesium 2.1 (1.6-2.3) mg/dL Total Bilirubin 2.8 H (0.2-1.3) mg/dL AST 47 H (14-36) U/L ALT 42 (9-52) U/L Alkaline Phosphatase 124 (38-126) U/L Total Creatine Kinase 72 (30-135) U/L CK-MB (CK-2) 3.2 H* (0.0-2.4) ng/mL CK-MB (CK-2) Rel Index 4.4 Troponin I 0.019 (0.000-0.034) ng/mL NT-Pro-B Natriuret Pep pg/mL Total Protein 7.2 (6.3-8.2) g/dL Albumin 3.9 (3.5-5.0) g/dL 11/02/17 11/02/17 11/02/17 Range/Units 13:56 13:56 13:56 WBC (3.8-10.6) k/uL RBC (3.80-5.40) m/uL Hgb (11.4-16.0) gm/dL Hct (34.0-46.0) % MCV (80.0-100.0) fL MCH (25.0-35.0) pg MCHC (31.0-37.0) g/dL RDW (11.5-15.5) % Plt Count (150-450) k/uL Neutrophils % % Lymphocytes % % Monocytes % % Eosinophils % % Basophils % % Neutrophils # (1.3-7.7) k/uL Lymphocytes # (1.0-4.8) k/uL Monocytes # (0-1.0) k/uL Eosinophils # (0-0.7) k/uL Basophils # (0-0.2) k/uL Hypochromasia Macrocytosis PT 23.4 H (9.0-12.0) sec INR 2.6 H (<1.2) APTT 25.7 (22.0-30.0) sec Sodium (137-145) mmol/L Potassium (3.5-5.1) mmol/L Chloride (98-107) mmol/L Carbon Dioxide (22-30) mmol/L Anion Gap mmol/L BUN (7-17) mg/dL Creatinine (0.52-1.04) mg/dL Est GFR (CKD-EPI)AfAm (>60 ml/min/1.73 sqM) Est GFR (CKD-EPI)NonAf (>60 ml/min/1.73 sqM) Glucose (74-99) mg/dL Plasma Lactic Acid Thang 3.2 H* (0.7-2.0) mmol/L Calcium (8.4-10.2) mg/dL Magnesium (1.6-2.3) mg/dL Total Bilirubin (0.2-1.3) mg/dL AST (14-36) U/L ALT (9-52) U/L Alkaline Phosphatase (38-126) U/L Total Creatine Kinase (30-135) U/L CK-MB (CK-2) (0.0-2.4) ng/mL CK-MB (CK-2) Rel Index Troponin I (0.000-0.034) ng/mL NT-Pro-B Natriuret Pep 1540 pg/mL Total Protein (6.3-8.2) g/dL Albumin (3.5-5.0) g/dL - EKG Data -: EKG Interpreted by Me (Atrial fibrillation rate of 146 QRS 98 daily since QTC 304/473 ) - Radiology Data Radiology results: report reviewed (I did review the imaging and report evidence of mild failure.), image reviewed Critical Care Time Critical Care Time: Yes Critical Care Time: 42 minutes of critical care time which includes history physical labs x-rays multiple reevaluation of the patient. Discussed with the patient and family members regarding findings discussed with the admitting physician admission orders and documentation of the above. This also included reviewing old charting that was available. Disposition Clinical Impression: Acute exacerbation of chronic obstructive airways disease, Adult respiratory distress syndrome, Rapid atrial fibrillation Disposition: ADMITTED IP TO THIS HOSP Condition: Stable Referrals: Du Lancaster MD [Primary Care Provider] - 1-2 days
[2017-11-02] MEDS: DILTIAZEM 50 MG in SODIUM CHLORIDE 0.9% 40 ML IV SCH ×2 (14:03→21:06)
[2017-11-02 14:23] LABS: Basophils % (A) 0 %; Eosinophils # (A) 0.1 k/uL (0-0.7); Eosinophils % (A) 1 %; HGB 14.5 gm/dL (11.4-16.0); Hypochromasia Slight; Lymphocytes # (A) 1.4 k/uL (1.0-4.8); Lymphocytes % (A) 16 %; MCH 30.8 pg (25.0-35.0); MCHC 31.6 g/dL (31.0-37.0); MCV 97.5 fL (80.0-100.0); Macrocytosis Slight; Mean Platelet Volume 7.8; Monocytes # (A) 0.6 k/uL (0-1.0); Monocytes % (A) 7 %; Neutrophils # (A) 6.4 k/uL (1.3-7.7); Neutrophils % (A) 75 %; Platelet Count 249 k/uL (150-450); RBC 4.71 m/uL (3.80-5.40); RDW 15.4 % (11.5-15.5); WBC 8.5 k/uL (3.8-10.6)
--- NOTE | 2017-11-02 14:26 | XR ---
EXAMINATION TYPE: XR chest 1V portable DATE OF EXAM: 11/02/2017 COMPARISON: 10/10/2017 HISTORY: Difficulty breathing TECHNIQUE: Single frontal view of the chest is obtained. FINDINGS: There is no focal air space opacity or pneumothorax seen. The cardiac silhouette size is markedly enlarged although similar to the prior. Again there is partial obscuration of the left cost ophrenic angle suggestive of a trace pleural effusion. Minimal interstitial prominence is similar to the prior and may represent very mild pulmonary interstitial edema. The osseous structures are intact . IMPRESSION: Redemonstration of very mild interstitial edema and marked cardiomegaly of congestive he art failure.
[2017-11-02 14:34] LABS: Albumin 3.9 g/dL (3.5-5.0); Calcium 9.7 mg/dL (8.4-10.2); Magnesium 2.1 mg/dL (1.6-2.3); Potassium 4.2 mmol/L (3.5-5.1); Total Bilirubin 2.8 mg/dL (0.2-1.3); Total Protein 7.2 g/dL (6.3-8.2)
[2017-11-02 14:35] LABS: INR 2.6 (<1.2); Partial Thromboplastin Time 25.7 sec (22.0-30.0); Prothrombin Time 23.4 sec (9.0-12.0)
[2017-11-02 14:50] LABS: Troponin I 0.019 ng/mL (0.000-0.034)
[2017-11-02 14:57] LABS: Creatine Kinase MB 3.2 ng/mL (0.0-2.4)
[2017-11-02] MEDS ORDERED: SODIUM CHLORIDE 0.9% 500 ML IV STA (15:31)
[2017-11-02] MEDS ORDERED: cefTRIAXone IN SWFI 1,000 MG/10 ML SYRINGE IVP STA (15:32)
[2017-11-02] MEDS ORDERED: SODIUM CHLORIDE 0.9% 1,000 ML IV STA (16:14)
[2017-11-02] MEDS ORDERED: IPRATROPIUM-ALBUTEROL 3 ML NEB INHALATION PRN (16:15)
[2017-11-02] MEDS ORDERED: traMADol 50 MG TAB PO PRN (16:19)
--- NOTE | 2017-11-02 19:02 | P.CNPUL ---
History of Present Illness Consult date: 11/02/17 Reason for consult: dyspnea History of present illness: 67-year-old female patient, known history of COPD, CHF and chronic atrial fibrillation addition to a previous history of left-sided stroke with expressive aphasia and right-sided weakness, presents to the hospital because of worsening shortness of breath. The patient continues to smoke cigarettes on a daily basis. Her breathing has been gradually getting worse over the past week or so. She comes into the MRSA problem because of worsening shortness of breath and she was found to be in atrial fibrillation with rapid ventricular response and a heart rate in the 140-150 range. The patient has been maintained on a combination of metoprolol for rate control and anticoagulation with Coumadin regarding her atrial fibrillation. She is also on Spiriva and Ventolin nebulized she was on Estrace basis regarding her COPD. She is known to have some mild degree of CHF and a chest x-ray on admission showed failure and is a little edema. The patient was given Lasix. The patient was started on a Cardizem drip. The INR is therapeutic at this point in time. Lactic acid level is at 3.2. White cell count is not elevated. Troponin first set is negative. ProBNP level is 1540. The patient is admitted to the hospital for this reason. Her latest echocardiogram from 05/01/2017 shows an ejection fraction of 45-50% consistent with mild LV impairment and the right ventricle is moderately enlarged and the patient has moderate mitral regurgitation and severe mitral stenosis and severe tricuspid regurgitation with a PA pressure of around 48. Review of Systems Constitutional: Reports fatigue, Reports weakness Eyes: denies blurred vision, denies bulging eye, denies decreased vision Ears: deny: decreased hearing, ear discharge, earache, tinnitus Ears, nose, mouth and throat: Denies headache, Denies sore throat Cardiovascular: Reports irregular heart beat, Reports leg edema, Reports orthopnea, Reports palpitations, Reports rapid heart beat Respiratory: Reports as per HPI, Reports cough, Reports dyspnea Gastrointestinal: Denies abdominal pain, Denies diarrhea, Denies nausea, Denies vomiting Genitourinary: Denies dysuria, Denies hematuria Musculoskeletal: Denies myalgias Musculoskeletal: bilateral: ankle swelling, absent: ankle pain, ankle stiffness Integumentary: Denies pruritus, Denies rash Neurological: Reports aphasia, Reports balance difficulties, Reports change in mentation, Reports change in speech, Reports gait dysfunction, Reports paralysis , Reports weakness Psychiatric: Reports as per HPI Endocrine: Reports as per HPI Hematologic/Lymphatic: Reports as per HPI Allergic/Immunologic: Reports as per HPI Past Medical History Past Medical History: Unable to Obtain, Atrial Fibrillation, Chest Pain / Angina , Heart Failure, COPD, CVA/TIA, GERD/Reflux, Hyperlipidemia, Hypertension, Osteoarthritis (OA), Pneumonia, Renal Disease Additional Past Medical History / Comment(s): 2001 CVA with R sided weakness arm /leg/contracted R hand and dysphasia, Afib with RVR, cardiac valve disease, DJD , occasional back pain, bronchitis, UTIs, kidney infections, anemia, head injury. History of Any Multi-Drug Resistant Organisms: None Reported Past Surgical History: Section, Hernia Repair, Orthopedic Surgery, Tonsillectomy Additional Past Surgical History / Comment(s): Incarcerated umbilical hernia repair/omentum resection, X2, L tibial IM nailing, teeth extractions. Past Anesthesia/Blood Transfusion Reactions: No Reported Reaction Smoking Status: Current every day smoker - Past Family History Father Family Medical History: Unable to Obtain Additional Family Medical History / Comment(s): FATHER WAS HEALTHY AND LIVED TO BE 96YRS OLD. Mother Family Medical History: Cancer Additional Family Medical History / Comment(s): MOTHER HAD BREAST CANCER. Medications and Allergies Home Medications Medication Instructions Recorded Confirmed Type Digoxin [Lanoxin] 250 mcg PO DAILY #30 tab 04/27/15 11/02/17 Rx Tiotropium [place] [Spiriva] 1 cap INHALATION RT-DAILY 05/01/17 11/02/17 History Albuterol Nebulized [Ventolin 2.5 mg INHALATION RT-QID PRN 08/17/17 11/02/17 History Nebulized] Furosemide [Lasix] 40 mg PO BID 11/02/17 11/02/17 History Lisinopril [Zestril] 5 mg PO DAILY 11/02/17 11/02/17 History Metoprolol Tartrate [Lopressor] 50 mg PO DAILY 11/02/17 11/02/17 History Omeprazole 20 mg PO DAILY 11/02/17 11/02/17 History Spironolactone [Aldactone] 25 mg PO DAILY 11/02/17 11/02/17 History Warfarin [Coumadin] 5 mg PO HS 11/02/17 11/02/17 History traMADol HCL [Ultram] 100 mg PO TID PRN 11/02/17 11/02/17 History Allergies Allergy/AdvReac Type Severity Reaction Status Date / Time No Known Allergies Allergy Verified 11/02/17 14:15 Physical Exam Vitals: Vital Signs Temp Pulse Resp BP Pulse Ox 11/02/17 18:13 97.4 F L 100 16 115/67 94 L 11/02/17 16:51 108 H 18 127/61 98 11/02/17 15:55 101 H 18 139/99 94 L 11/02/17 15:17 111 H 20 109/59 95 11/02/17 14:37 128 H 11/02/17 14:26 120 H 11/02/17 13:33 97.8 F 154 H 32 H 125/93 88 L Intake and Output 11/02/17 11/02/17 11/02/17 06:59 14:59 22:59 Other: Weight 81.647 kg Gen. appearance the patient is a mild degree of respiratory distress even at rest. The patient has some facial asymmetry related to previous CVA. She is not using accessory muscles of breathing. Head exam was generally normal. There was no scleral icterus or corneal arcus. Mucous membranes were moist. Neck was supple and without jugular venous distension, thyromegaly, or carotid bruits. Carotids were easily palpable bilaterally. There was no adenopathy. Lungs sounds are diminished bilaterally. There is some bibasilar crackles. Scattered expiratory wheezes heard throughout the lung moraes bilaterally especially upon forceful respiratory maneuvers. Heart sounds are irregular, positive S1-S2 and there is a faint systolic ejection murmur grade 2/6 heard throughout the precordium. Abdominal exam revealed normal bowel sounds. The abdomen was soft, non-tender, and without masses, organomegaly, or appreciable enlargement of the abdominal aorta. Examination of the extremities revealed easily palpable radial, femoral and pedal pulses. There was no cyanosis, clubbing and the patient has +1-2 pitting edema in lower extremities bilaterally. Neurologically the patient is awake. The patient is aphasic. She has chronic hemiplegia on the right side with right-sided spasticity and weakness. Facial asymmetry is present. There is expressive aphasia. Results - Laboratory Findings CBC and BMP: 11/02/17 13:56 11/02/17 13:56 PT/INR, D-dimer PT 23.4 sec (9.0-12.0) H 11/02/17 13:56 INR 2.6 (<1.2) H 11/02/17 13:56 Abnormal lab findings: Abnormal Labs 11/02/17 11/02/17 11/02/17 13:56 13:56 13:56 PT INR BUN 28 H Glucose 125 H Plasma Lactic Acid Thang 3.2 H* Total Bilirubin 2.8 H AST 47 H CK-MB (CK-2) 3.2 H* 11/02/17 13:56 PT 23.4 H INR 2.6 H BUN Glucose Plasma Lactic Acid Thang Total Bilirubin AST CK-MB (CK-2) - Diagnostic Findings Chest x-ray: image reviewed Assessment and Plan Plan: Assessment 1 acute dyspnea with acute hypoxic respiratory failure secondary to a combination of CHF exacerbation and COPD 2 chronic atrial fibrillation, rapid ventricular response at a time of admission currently on a Cardizem drip for rate control and the patient is therapeutic and the PT/INR 3 CHF mild systolic dysfunction and the patient went into acute CHF at a time of admission because of A. fib/RVR. Note that the patient has valvular heart disease with moderate mitral regurgitation and severe mitral stenosis which probably exacerbated atrial fibrillation and CHF in addition. 4 COPD with secondary exacerbation 5 history of CVA with right-sided hemiplegia and expressive aphasia. The patient is essentially bedridden 6 smoking 7 hypertension 8 hyperlipidemia 9 valvular heart disease, in the form of moderate mitral regurgitation and severe mitral stenosis with secondary pulmonary hypertension and the patient is also mild impairment of the LV function 10 mild lactic acidosis, sepsis ruled out. Plan Admit the patient to the telemetry unit. Cardizem for rate control. Restart the Toprol as dose of 50 mg by mouth today and continue the Cardizem drip and titrate the dose to achieve a heart rate less than 100. Continue articulation with warfarin to maintain an INR between 2 and 3 and the patient is therapeutic for now. Lasix 40 mg IV push every 12 hours. Continue DuoNeb about treatments around the clock. Often this patient IV Solu-Medrol 40 mg every 6 hours in regards to COPD exacerbation. May need to repeat echocardiogram. Unfortunately the patient has significant degree of mitral stenosis contributing to her atrial fibrillation and CHF. Overall functional performance status is poor. Outpatient Spiriva needs to be continued. Outpatient smoking cessation counseling. We'll continue to follow.
[2017-11-02] MEDS: IPRATROPIUM 0.5 MG/2.5 ML NEBU INHALATION SCH (19:24)
--- NOTE | 2017-11-02 19:55 | P.HPIM ---
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 Patient was also found have atrial fibrillation with rapid ventricular rate while ER and was started on Cardizem drip. Patient denied any complaints of chest pain. No nausea vomiting or abdominal pain. Patient was having cough and not able to bring out any sputum. No headache or dizziness or lightheadedness. Patient does have bilateral lower extremities swelling. Chest x-ray showedredemonstration of very mild interstitial edema and marked cardiomegaly, congestive heart failure. Patient was started on IV steroids and breathing treatments and Lasix IV. Last echocardiogram done on 05/01/2017 showed ejection fraction 45-50%, moderately enlarged RV, severely dilated LA, severely thickened mitral valve leaflets, moderate MR. Severe mitral stenosis severe tricuspid regurgitation, and moderate pulmonary hypertension with RVSP 46.68 mmhg. BNP 1540 INR 2.6 and lactic acid 3.2 EKG showed atrial fibrillation with a rapid ventricular rate. Review of Systems Constitutional: Patient denies any fever or chills . No generalized weakness or weight loss. Abdomen: Patient denied nausea vomiting and diarrhea and abdominal pain. Cardiovascular: Patient denies any chest pain. Does have short of breath. Leg swelling. no palpitations. Respiratory: Cough without sputum and shortness of breath Neurologic: Patient denied any numbness or tingling headache. Musculoskeletal: Patient denies any complaints of joint swelling or deformity. Skin: Negative Psychiatric: Negative Endocrine: No heat or cold intolerance. No recent weight gain. Genitourinary: No dysuria or hematuria. All other 14 point ROS negative except the above Past Medical History Past Medical History: Unable to Obtain, Atrial Fibrillation, Chest Pain / Angina , Heart Failure, COPD, CVA/TIA, GERD/Reflux, Hyperlipidemia, Hypertension, Osteoarthritis (OA), Pneumonia, Renal Disease Additional Past Medical History / Comment(s): 2002 CVA with R sided weakness arm /leg/contracted R hand and dysphasia, Afib with RVR, cardiac valve disease, DJD , occasional back pain, bronchitis, UTIs, kidney infections, anemia, head injury. History of Any Multi-Drug Resistant Organisms: None Reported Past Surgical History: Section, Hernia Repair, Orthopedic Surgery, Tonsillectomy Additional Past Surgical History / Comment(s): Incarcerated umbilical hernia repair/omentum resection, X2, L tibial IM nailing, teeth extractions. Past Anesthesia/Blood Transfusion Reactions: No Reported Reaction Smoking Status: Current every day smoker - Past Family History Father Family Medical History: Unable to Obtain Additional Family Medical History / Comment(s): FATHER WAS HEALTHY AND LIVED TO BE 96YRS OLD. Mother Family Medical History: Cancer Additional Family Medical History / Comment(s): MOTHER HAD BREAST CANCER. Medications and Allergies Home Medications Medication Instructions Recorded Confirmed Type Digoxin [Lanoxin] 250 mcg PO DAILY #30 tab 04/27/15 11/02/17 Rx Tiotropium [place] [Spiriva] 1 cap INHALATION RT-DAILY 05/01/17 11/02/17 History Albuterol Nebulized [Ventolin 2.5 mg INHALATION RT-QID PRN 08/17/17 11/02/17 History Nebulized] Furosemide [Lasix] 40 mg PO BID 11/02/17 11/02/17 History Lisinopril [Zestril] 5 mg PO DAILY 11/02/17 11/02/17 History Metoprolol Tartrate [Lopressor] 50 mg PO DAILY 11/02/17 11/02/17 History Omeprazole 20 mg PO DAILY 11/02/17 11/02/17 History Spironolactone [Aldactone] 25 mg PO DAILY 11/02/17 11/02/17 History Warfarin [Coumadin] 5 mg PO HS 11/02/17 11/02/17 History traMADol HCL [Ultram] 100 mg PO TID PRN 11/02/17 11/02/17 History Allergies Allergy/AdvReac Type Severity Reaction Status Date / Time No Known Allergies Allergy Verified 11/02/17 14:15 Physical Exam Vitals: Vital Signs Temp Pulse Resp BP Pulse Ox 11/02/17 19:02 16 11/02/17 18:13 97.4 F L 100 16 115/67 94 L 11/02/17 16:51 108 H 18 127/61 98 11/02/17 15:55 101 H 18 139/99 94 L 11/02/17 15:17 111 H 20 109/59 95 11/02/17 14:37 128 H 11/02/17 14:26 120 H 11/02/17 13:33 97.8 F 154 H 32 H 125/93 88 L Intake and Output 11/02/17 11/02/17 11/02/17 06:59 14:59 22:59 Other: Weight 81.647 kg PHYSICAL EXAMINATION: Patient is lying in the bed comfortably, no acute distress, awake alert and oriented.. HEENT: Normocephalic. Neck is supple. Pupils reactive. Nostrils clear. Oral cavity is moist. Ears reveal no drainage. Neck reveals no JVD, carotid bruits, or thyromegaly. CHEST EXAMINATION: Trachea is central. Symmetrical expansion. Bibasilar crackles. Prolonged expiration Lung moraes clear to auscultation and percussion. CARDIAC: Normal S1, S2 with no gallops. Irregularly irregular ABDOMEN: Soft. Bowel sounds normal. No organomegaly. No abdominal bruits. Extremities: 3+ edema. Chronic venous stasis changes. No clubbing or cyanosis Neurologically awake, alert, oriented x3 . Right-sided hemiparalysis. Skin: No rash or skin lesions. Psychiatric: Coperative. Nonsuicidal Musculoskeletal: No joint swelling or deformity. Normal range of motion. Results CBC & Chem 7: 11/02/17 13:56 11/02/17 13:56 Labs: Abnormal Lab Results - Last 24 Hours (Table) 11/02/17 11/02/17 11/02/17 Range/Units 13:56 13:56 13:56 PT (9.0-12.0) sec INR (<1.2) BUN 28 H (7-17) mg/dL Glucose 125 H (74-99) mg/dL Plasma Lactic Acid Thang 3.2 H* (0.7-2.0) mmol/L Total Bilirubin 2.8 H (0.2-1.3) mg/dL AST 47 H (14-36) U/L CK-MB (CK-2) 3.2 H* (0.0-2.4) ng/mL 11/02/17 11/02/17 Range/Units 13:56 18:28 PT 23.4 H (9.0-12.0) sec INR 2.6 H (<1.2) BUN (7-17) mg/dL Glucose (74-99) mg/dL Plasma Lactic Acid Thang 2.7 H* (0.7-2.0) mmol/L Total Bilirubin (0.2-1.3) mg/dL AST (14-36) U/L CK-MB (CK-2) (0.0-2.4) ng/mL Thrombosis Risk Factor Assmnt - DVT/VTE Prophylaxis DVT/VTE Prophylaxis: Pharmacologic Prophylaxis ordered Assessment and Plan Assessment: Acute hypoxic respiratory failure with pulse ox 88% on admission. Multifactorial due to CHF and COPD. Acute COPD exacerbation Acute on chronic CHF with systolic dysfunction is expected 45-50% and 1 with valvular heart disease Atrial fibrillation with rapid ventricular rate Valvular heart disease with severe TR and MR and Moderate pulmonary hypertension with RVSP 46.68 mmhg. Chronic atrial fibrillation on anticoagulation witb Coumadin. history of CVA with right-sided hemiplegia and difficulty speech Lactic acidosis Hypertension Hyperlipidemia Osteoarthritis GERD Currently everyday smoker Plan: Patient is currently on Cardizem drip. Restart home medications and patient will be started on IV Lasix and IV steroids along with breathing treatments and follow closely. Pulmonary is following. Continue with current management and further recommendations based on the clinical course. Discussed with his daughter at bedside. Prognosis is guarded. Time with Patient: Greater than 30
[2017-11-02 20:43] LABS: Glucose,Whole Blood 163 mg/dL (75-99)
[2017-11-02] MEDS: INSULIN ASPART 100 UNIT/ML 1 ML 10 ML VIAL SQ SCH (20:51)
[2017-11-02] MEDS: FUROSEMIDE 10 MG/ML 2 ML VIAL IV SCH (20:51)
[2017-11-02] MEDS: methylPREDNISolone SOD SUCCI 40 MG/ML 1 ML VIAL IV SCH ×2 (20:51→23:15)
[2017-11-02] MEDS: WARFARIN 5 MG TAB PO SCH (20:52)
[2017-11-03 06:07] LABS: Glucose,Whole Blood 169 mg/dL (75-99)
[2017-11-03] MEDS: PANTOPRAZOLE 40 MG TABLET PO SCH (06:35)
[2017-11-03] MEDS: methylPREDNISolone SOD SUCCI 40 MG/ML 1 ML VIAL IV SCH ×4 (06:35→23:16)
[2017-11-03] MEDS: INSULIN ASPART 100 UNIT/ML 1 ML 10 ML VIAL SQ SCH ×4 (06:35→21:06)
[2017-11-03] MEDS: DILTIAZEM 50 MG in SODIUM CHLORIDE 0.9% 40 ML IV SCH ×3 (06:59→18:49)
[2017-11-03] MEDS: IPRATROPIUM 0.5 MG/2.5 ML NEBU INHALATION SCH ×5 (08:25→19:43)
--- NOTE | 2017-11-03 08:31 | P.CRDCN ---
History of Present Illness Consult date: 11/03/17 Chief complaint: Shortness of breath History of present illness: This is a pleasant 67-year-old female patient with a past medical history significant for chronic atrial fibrillation on oral anticoagulation with Coumadin as well as history of CVA causing right sided weakness as well as slurred speech and history of chronic obstructive pulmonary disease on oxygen at home presented to the hospital complaining of shortness of breath. The patient does have communication problem and she cannot carry on conversation but she can answer the questions with yes or no. Apparently she presented to the emergency room with a worsening dyspnea. No indication of any chest pain or chest discomfort. No dizziness or lightheadedness. No feeling of heart racing or fluttering and no syncope. The patient was diagnosed with COPD exacerbation as well as CHF exacerbation. The chest x-ray showed findings consistent with pulmonary edema. The EKG showed A. fib with RVR. The patient is known to have chronic atrial fibrillation from before. No history of coronary artery disease. The BNP came in to be elevated as well. The CBC and BMP came in to be within normal limits. The patient did have an echocardiogram was performed in April 2017 and the echo revealed mild cardiomyopathy with EF around 45%. The patient does have very diminished breathing sounds bilaterally and also bilateral lower extremities edema more significant on the right side than the left side. The patient was started on treatment for COPD exacerbation and also she was started on IV Lasix. Currently she is on Cardizem and drip at 5 mg per hour and she is also on metoprolol at 50 mg by mouth daily. I'm going to increase the dose of metoprolol to 50 mg by mouth twice a day. The right wean her from the Cardizem drip. Continue oral anticoagulation was Coumadin and try to keep the INR between 2-3. I will continue also the IV Lasix for additional 24 hours and follow-up with her. 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 History of Any Multi-Drug Resistant Organisms: None Reported Past Surgical History: Section, Hernia Repair, Orthopedic Surgery, Tonsillectomy Additional Past Surgical History / Comment(s): Incarcerated umbilical hernia repair/omentum resection, X2, L tibial IM nailing, teeth extractions. Past Anesthesia/Blood Transfusion Reactions: No Reported Reaction Smoking Status: Current every day smoker - Past Family History Father Family Medical History: Unable to Obtain Additional Family Medical History / Comment(s): FATHER WAS HEALTHY AND LIVED TO BE 96YRS OLD. Mother Family Medical History: Cancer Additional Family Medical History / Comment(s): MOTHER HAD BREAST CANCER. Medications and Allergies Home Medications Medication Instructions Recorded Confirmed Type Digoxin [Lanoxin] 250 mcg PO DAILY #30 tab 04/27/15 11/02/17 Rx Tiotropium [place] [Spiriva] 1 cap INHALATION RT-DAILY 05/01/17 11/02/17 History Albuterol Nebulized [Ventolin 2.5 mg INHALATION RT-QID PRN 08/17/17 11/02/17 History Nebulized] Furosemide [Lasix] 40 mg PO BID 11/02/17 11/02/17 History Lisinopril [Zestril] 5 mg PO DAILY 11/02/17 11/02/17 History Metoprolol Tartrate [Lopressor] 50 mg PO DAILY 11/02/17 11/02/17 History Omeprazole 20 mg PO DAILY 11/02/17 11/02/17 History Spironolactone [Aldactone] 25 mg PO DAILY 11/02/17 11/02/17 History Warfarin [Coumadin] 5 mg PO HS 11/02/17 11/02/17 History traMADol HCL [Ultram] 100 mg PO TID PRN 11/02/17 11/02/17 History Allergies Allergy/AdvReac Type Severity Reaction Status Date / Time No Known Allergies Allergy Verified 11/02/17 14:15 Physical Exam Vitals: Vital Signs Temp Pulse Pulse Resp BP BP Pulse Ox 11/03/17 04:00 133 H 18 104/73 95 11/03/17 00:00 97.1 F L 109 H 20 111/70 96 11/02/17 20:00 97.1 F L 121 H 20 112/78 97 11/02/17 19:34 119 H 16 11/02/17 19:24 112 H 16 99 11/02/17 19:02 16 11/02/17 18:13 97.4 F L 100 16 115/67 94 L 11/02/17 16:51 108 H 18 127/61 98 11/02/17 15:55 101 H 18 139/99 94 L 11/02/17 15:17 111 H 20 109/59 95 11/02/17 14:37 128 H 11/02/17 14:26 120 H 11/02/17 13:33 97.8 F 154 H 32 H 125/93 88 L Intake and Output 11/02/17 11/03/17 11/03/17 22:59 06:59 14:59 Intake Total 275.25 49.417 240 Output Total 300 Balance 275.25 -250.583 240 Intake: Intake, IV Titration 35.25 49.417 Amount Diltiazem 50 mg In Sodium 35.25 49.417 Chloride 0.9% 40 ml @ 5 MG/HR 5 mls/hr IV .Q10H [facility] Rx#:[id number] Oral 240 240 Output: Urine 300 Other: Voiding Method Bedpan Bedpan Diaper Diaper # Voids 2 1 Weight 102.5 kg - Constitutional General appearance: no acute distress - Respiratory Respiratory: bilateral: diminished - Cardiovascular Rhythm: irregularly irregular Heart sounds: normal: S1, S2 Results 11/02/17 13:56 11/02/17 13:56 Cardiac Enzymes 11/02/17 11/02/17 Range/Units 13:56 13:56 AST 47 H (14-36) U/L CK-MB (CK-2) 3.2 H* (0.0-2.4) ng/mL Troponin I 0.019 (0.000-0.034) ng/mL Coagulation 11/02/17 Range/Units 13:56 PT 23.4 H (9.0-12.0) sec APTT 25.7 (22.0-30.0) sec CBC 11/02/17 Range/Units 13:56 WBC 8.5 (3.8-10.6) k/uL RBC 4.71 (3.80-5.40) m/uL Hgb 14.5 (11.4-16.0) gm/dL Hct 46.0 (34.0-46.0) % Plt Count 249 (150-450) k/uL Comprehensive Metabolic Panel 11/02/17 Range/Units 13:56 Sodium 140 (137-145) mmol/L Potassium 4.2 (3.5-5.1) mmol/L Chloride 100 (98-107) mmol/L Carbon Dioxide 26 (22-30) mmol/L BUN 28 H (7-17) mg/dL Creatinine 0.90 (0.52-1.04) mg/dL Glucose 125 H (74-99) mg/dL Calcium 9.7 (8.4-10.2) mg/dL AST 47 H (14-36) U/L ALT 42 (9-52) U/L Alkaline Phosphatase 124 (38-126) U/L Total Protein 7.2 (6.3-8.2) g/dL Albumin 3.9 (3.5-5.0) g/dL Current Medications Generic Name Dose Route Start Last Admin Trade Name Freq PRN Reason Stop Dose Admin Albuterol/Ipratropium 3 ml 11/02/17 16:15 Duoneb 0.5 Mg-3 Mg/3 Ml Soln INHALATION RT-Q4H PRN Shortness Of Breath Or Wheezing Digoxin 250 mcg 11/03/17 09:00 Lanoxin PO DAILY [facility] Furosemide 20 mg 11/02/17 21:00 11/02/17 20:51 Lasix IV 20 mg Q12HR [facility] Administration Diltiazem HCl 50 mg/ Sodium 50 mls @ 5 mls/hr 11/02/17 13:45 11/03/17 06:59 Chloride IV 5 mg/hr .Q10H [facility] 5 mls/hr Administration 5 MG/HR Insulin Aspart 0 unit 11/02/17 21:00 11/03/17 06:35 Novolog SQ 3 unit ACHS K[facility]INA Administration Protocol Ipratropium [place] 0.5 mg 11/03/17 08:00 11/03/17 08:25 Atrovent Nebulized INHALATION 0.5 mg RT-QID [facility] Administration Lisinopril 5 mg 11/03/17 09:00 Zestril PO DAILY [facility] Methylprednisolone Sodium Succinate 40 mg 11/02/17 19:15 11/03/17 06:35 Solu-Medrol IV 40 mg Q6HR [facility] Administration Metoprolol Tartrate 50 mg 11/03/17 09:00 Lopressor PO BID [facility] Nicotine 1 patch 11/03/17 09:00 Habitrol 21mg/24hr Patch TRANSDERM DAILY [facility] Pantoprazole Sodium 40 mg 11/03/17 07:30 11/03/17 06:35 Protonix PO 40 mg [id number] [facility] Administration Spironolactone 25 mg 11/03/17 09:00 Aldactone PO DAILY [facility] Tramadol HCl 100 mg 11/02/17 16:19 Ultram PO TID PRN Moderate Pain Warfarin Sodium 5 mg 11/02/17 21:00 11/02/17 20:52 Coumadin PO 5 mg HS [facility] Administration Intake and Output 11/02/17 11/03/17 11/03/17 22:59 06:59 14:59 Intake Total 275.25 49.417 240 Output Total 300 Balance 275.25 -250.583 240 Intake: Intake, IV Titration 35.25 49.417 Amount Diltiazem 50 mg In Sodium 35.25 49.417 Chloride 0.9% 40 ml @ 5 MG/HR 5 mls/hr IV .Q10H [facility] Rx#:[id number] Oral 240 240 Output: Urine 300 Other: Voiding Method Bedpan Bedpan Diaper Diaper # Voids 2 1 Weight 102.5 kg 11/02/17 13:56 11/02/17 13:56 Assessment and Plan Assessment: Assessment #1 acute hypoxic respiratory failure #2 CHF exacerbation secondary to systolic dysfunction. #3 atrial fibrillation with RVR. #4 known chronic atrial fibrillation on oral anticoagulation was #5 mild cardiomyopathy with an ejection fraction of 45%. Plan #1 continue IV Lasix for additional 24 hours. #2 increase the dose of metoprolol to 50 mg by mouth twice a day. #3 try to wean the patient from the Cardizem drip #4 continue oral anticoagulation #5 follow-up with the patient.
[2017-11-03] MEDS: METOPROLOL TARTRATE 50 MG TAB PO SCH ×2 (08:37→20:28)
[2017-11-03] MEDS: DIGOXIN 250 MCG TAB PO SCH (08:37)
[2017-11-03] MEDS: SPIRONOLACTONE 25 MG TAB PO SCH (08:37)
[2017-11-03] MEDS: LISINOPRIL 5 MG TAB PO SCH (08:37)
[2017-11-03] MEDS: NICOTINE 21MG/24HR PATCH TRANSDERM SCH (08:38)
[2017-11-03] MEDS: FUROSEMIDE 10 MG/ML 2 ML VIAL IV SCH ×2 (08:38→20:29)
[2017-11-03] MEDS ORDERED: FUROSEMIDE 40 MG TAB PO SCH (09:00)
[2017-11-03] MEDS ORDERED: METOPROLOL TARTRATE 50 MG TAB PO SCH (09:00)
[2017-11-03 12:06] LABS: Glucose,Whole Blood 240 mg/dL (75-99)
--- NOTE | 2017-11-03 14:22 | P.PN ---
Subjective Progress Note Date: 11/03/17 Principal diagnosis: Acute hypoxic respiratory failure secondary to combination of both systolic congestive heart failure and COPD exacerbation. 67-year-old female patient, known history of COPD, CHF and chronic atrial fibrillation addition to a previous history of left-sided stroke with expressive aphasia and right-sided weakness, presents to the hospital because of worsening shortness of breath. The patient continues to smoke cigarettes on a daily basis. Her breathing has been gradually getting worse over the past week or so. She comes into the MRSA problem because of worsening shortness of breath and she was found to be in atrial fibrillation with rapid ventricular response and a heart rate in the 140-150 range. The patient has been maintained on a combination of metoprolol for rate control and anticoagulation with Coumadin regarding her atrial fibrillation. She is also on Spiriva and Ventolin nebulized she was on Estrace basis regarding her COPD. She is known to have some mild degree of CHF and a chest x-ray on admission showed failure and is a little edema. The patient was given Lasix. The patient was started on a Cardizem drip. The INR is therapeutic at this point in time. Lactic acid level is at 3.2. White cell count is not elevated. Troponin first set is negative. ProBNP level is 1540. The patient is admitted to the hospital for this reason. Her latest echocardiogram from 05/01/2017 shows an ejection fraction of 45-50% consistent with mild LV impairment and the right ventricle is moderately enlarged and the patient has moderate mitral regurgitation and severe mitral stenosis and severe tricuspid regurgitation with a PA pressure of around 48. The patient was seen again today 11/03/2017 in follow-up on the selective care unit. She is currently awake and alert in no acute distress. She is maintaining O2 saturations up to 100% on 2 L/m per nasal cannula. She remains tachycardic in 120s in atrial fibrillation and remains on a Cardizem drip at 5 mg per hour. She is being gently diuresed with Lasix 20 milligrams IV every 12 hours. She is continued on treatment for her COPD exacerbation as well as cleaning IV Solu-Medrol, bronchodilators. Objective - Vital Signs Vital signs: Vital Signs Temp 97.6 F 11/03/17 08:00 Pulse 124 H 11/03/17 12:43 Resp 18 11/03/17 12:00 BP 113/75 11/03/17 12:00 Pulse Ox 100 11/03/17 12:00 Intake & Output 11/02/17 11/03/17 11/03/17 18:59 06:59 18:59 Intake Total 324.667 480 Output Total 300 Balance 24.667 480 Weight 81.647 kg 102.5 kg Intake: Intake, IV Titration 84.667 Amount Diltiazem 50 mg In Sodium 84.667 Chloride 0.9% 40 ml @ 5 MG/HR 5 mls/hr IV .Q10H [facility] Rx#:[id number] Oral 240 480 Output: Urine 300 Other: Voiding Method Bedpan Diaper # Voids 1 1 # Bowel Movements 1 - Exam Gen. appearance the patient is a mild degree of respiratory distress even at rest. The patient has some facial asymmetry related to previous CVA. She is not using accessory muscles of breathing. Head exam was generally normal. There was no scleral icterus or corneal arcus. Mucous membranes were moist. Neck was supple and without jugular venous distension, thyromegaly, or carotid bruits. Carotids were easily palpable bilaterally. There was no adenopathy. Lungs sounds are diminished bilaterally. There is some bibasilar crackles. Scattered expiratory wheezes heard throughout the lung moraes bilaterally especially upon forceful respiratory maneuvers. Heart sounds are irregular, positive S1-S2 and there is a faint systolic ejection murmur grade 2/6 heard throughout the precordium. Abdominal exam revealed normal bowel sounds. The abdomen was soft, non-tender, and without masses, organomegaly, or appreciable enlargement of the abdominal aorta. Examination of the extremities revealed easily palpable radial, femoral and pedal pulses. There was no cyanosis, clubbing and the patient has +1-2 pitting edema in lower extremities bilaterally. Neurologically the patient is awake. The patient is aphasic. She has chronic hemiplegia on the right side with right-sided spasticity and weakness. Facial asymmetry is present. There is expressive aphasia. - Labs CBC & Chem 7: 11/02/17 13:56 11/02/17 13:56 Labs: Abnormal Lab Results - Last 24 Hours (Table) 11/02/17 11/02/17 11/02/17 Range/Units 13:56 13:56 13:56 PT (9.0-12.0) sec INR (<1.2) BUN 28 H (7-17) mg/dL Glucose 125 H (74-99) mg/dL POC Glucose (mg/dL) (75-99) mg/dL Plasma Lactic Acid Thang 3.2 H* (0.7-2.0) mmol/L Total Bilirubin 2.8 H (0.2-1.3) mg/dL AST 47 H (14-36) U/L CK-MB (CK-2) 3.2 H* (0.0-2.4) ng/mL 11/02/17 11/02/17 11/02/17 Range/Units 13:56 18:28 20:41 PT 23.4 H (9.0-12.0) sec INR 2.6 H (<1.2) BUN (7-17) mg/dL Glucose (74-99) mg/dL POC Glucose (mg/dL) 163 H (75-99) mg/dL Plasma Lactic Acid Thang 2.7 H* (0.7-2.0) mmol/L Total Bilirubin (0.2-1.3) mg/dL AST (14-36) U/L CK-MB (CK-2) (0.0-2.4) ng/mL 11/03/17 11/03/17 Range/Units 05:45 11:44 PT (9.0-12.0) sec INR (<1.2) BUN (7-17) mg/dL Glucose (74-99) mg/dL POC Glucose (mg/dL) 169 H 240 H (75-99) mg/dL Plasma Lactic Acid Thang (0.7-2.0) mmol/L Total Bilirubin (0.2-1.3) mg/dL AST (14-36) U/L CK-MB (CK-2) (0.0-2.4) ng/mL Microbiology - Last 24 Hours (Table) 11/02/17 13:56 Blood Culture Gram Stain - Preliminary Blood 11/02/17 13:56 Blood Culture - Final Blood Assessment and Plan Assessment: Assessment 1 acute dyspnea with acute hypoxic respiratory failure secondary to a combination of CHF exacerbation and COPD 2 chronic atrial fibrillation, rapid ventricular response at a time of admission currently on a Cardizem drip for rate control and the patient is therapeutic and the PT/INR 3 CHF mild systolic dysfunction and the patient went into acute CHF at a time of admission because of A. fib/RVR. Note that the patient has valvular heart disease with moderate mitral regurgitation and severe mitral stenosis which probably exacerbated atrial fibrillation and CHF in addition. 4 COPD with secondary exacerbation 5 history of CVA with right-sided hemiplegia and expressive aphasia. The patient is essentially bedridden 6 smoking 7 hypertension 8 hyperlipidemia 9 valvular heart disease, in the form of moderate mitral regurgitation and severe mitral stenosis with secondary pulmonary hypertension and the patient is also mild impairment of the LV function 10 mild lactic acidosis, sepsis ruled out. Plan: The patient is seen and evaluated by Dr. Troy. She is improved today as compared to yesterday. We'll continue with her current pulmonary medications. We'll continue with diuretics and antiarrhythmics. She is again educated regarding importance of complete smoking cessation. NicoDerm patches in place. We will increase her activity as tolerated. We'll continue to follow. I, the cosigning physician, performed a history & physical examination of the patient. Lungs sounds with faint crackles in the bilateral posterior bases. Maintaining good O2 saturations in the 90s on 2 L/m per nasal cannula. I discussed the assessment and plan of care with my nurse practitioner, Vicki Guerrero. I attest to the above note as dictated by her.
[2017-11-03] MEDS: cefTRIAXone IN SWFI 1,000 MG/10 ML SYRINGE IVP SCH (16:53)
[2017-11-03 16:54] LABS: Glucose,Whole Blood 154 mg/dL (75-99)
[2017-11-03] MEDS: WARFARIN 5 MG TAB PO SCH (20:29)
[2017-11-03 20:49] LABS: Glucose,Whole Blood 183 mg/dL (75-99)
--- NOTE | 2017-11-04 00:52 | P.PN ---
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 Patient was also found have atrial fibrillation with rapid ventricular rate while ER and was started on Cardizem drip. Patient denied any complaints of chest pain. No nausea vomiting or abdominal pain. Patient was having cough and not able to bring out any sputum. No headache or dizziness or lightheadedness. Patient does have bilateral lower extremities swelling. Chest x-ray showedredemonstration of very mild interstitial edema and marked cardiomegaly, congestive heart failure. Patient was started on IV steroids and breathing treatments and Lasix IV. Last echocardiogram done on 05/01/2017 showed ejection fraction 45-50%, moderately enlarged RV, severely dilated LA, severely thickened mitral valve leaflets, moderate MR. Severe mitral stenosis severe tricuspid regurgitation, and moderate pulmonary hypertension with RVSP 46.68 mmhg. BNP 1540 INR 2.6 and lactic acid 3.2 EKG showed atrial fibrillation with a rapid ventricular rate. 11/03/2017 Patient's breathing status is slightly improved. Otherwise still having lower extremities swelling. Continued on IV steroids. Dose increased to 40 mg every 8 hourly. Lasix will be continued intravenously. No complaints of chest pain or worsening shortof breath. No nausea vomiting or abdominal pain. No diarrhea. Otherwise patient does have expressive dysphagia from previous CVA Discussed with her daughter at bedside in detail. Current medications reviewed Objective - Vital Signs Vital signs: Vital Signs Temp 97.6 F 11/03/17 08:00 Pulse 124 H 11/03/17 12:43 Resp 18 11/03/17 12:00 BP 113/75 11/03/17 12:00 Pulse Ox 100 11/03/17 12:00 Intake & Output 11/02/17 11/03/17 11/03/17 18:59 06:59 18:59 Intake Total 324.667 480 Output Total 300 Balance 24.667 480 Weight 81.647 kg 102.5 kg Intake: Intake, IV Titration 84.667 Amount Diltiazem 50 mg In Sodium 84.667 Chloride 0.9% 40 ml @ 5 MG/HR 5 mls/hr IV .Q10H [facility] Rx#:[id number] Oral 240 480 Output: Urine 300 Other: Voiding Method Bedpan Diaper # Voids 1 1 # Bowel Movements 1 - Exam PHYSICAL EXAMINATION: Patient is lying in the bed comfortably, no acute distress, awake alert and oriented.. HEENT: Normocephalic. Neck is supple. Pupils reactive. Nostrils clear. Oral cavity is moist. Ears reveal no drainage. Neck reveals no JVD, carotid bruits, or thyromegaly. CHEST EXAMINATION: Trachea is central. Symmetrical expansion. Bibasilar crackles. Prolonged expiration Lung moraes clear to auscultation and percussion. CARDIAC: Normal S1, S2 with no gallops. Irregularly irregular ABDOMEN: Soft. Bowel sounds normal. No organomegaly. No abdominal bruits. Extremities: 3+ edema. Chronic venous stasis changes. No clubbing or cyanosis Neurologically awake, alert, oriented x3 . Right-sided hemiparalysis. Skin: No rash or skin lesions. Psychiatric: Coperative. Nonsuicidal Musculoskeletal: No joint swelling or deformity. Normal range of motion. - Labs CBC & Chem 7: 11/02/17 13:56 11/02/17 13:56 Labs: Abnormal Lab Results - Last 24 Hours (Table) 11/02/17 11/02/17 11/02/17 Range/Units 13:56 18:28 20:41 POC Glucose (mg/dL) 163 H (75-99) mg/dL Plasma Lactic Acid Thang 2.7 H* (0.7-2.0) mmol/L CK-MB (CK-2) 3.2 H* (0.0-2.4) ng/mL 11/03/17 11/03/17 Range/Units 05:45 11:44 POC Glucose (mg/dL) 169 H 240 H (75-99) mg/dL Plasma Lactic Acid Thang (0.7-2.0) mmol/L CK-MB (CK-2) (0.0-2.4) ng/mL Microbiology - Last 24 Hours (Table) 11/02/17 13:56 Blood Culture Gram Stain - Preliminary Blood 11/02/17 13:56 Blood Culture - Final Blood Assessment and Plan Assessment: Acute hypoxic respiratory failure with pulse ox 88% on admission. Multifactorial due to CHF and COPD. Acute COPD exacerbation Acute on chronic CHF with systolic dysfunction is expected 45-50% and 1 with valvular heart disease Atrial fibrillation with rapid ventricular rate. Off Cardizem drip now Valvular heart disease with severe TR and MR and Moderate pulmonary hypertension with RVSP 46.68 mmhg. Chronic atrial fibrillation on anticoagulation witb Coumadin. history of CVA with right-sided hemiplegia and difficulty speech Lactic acidosis due to dehydration and volume depletion on admission. Resolved Hypertension Hyperlipidemia Osteoarthritis GERD Currently everyday smoker Plan: Patient is off Cardizem drip. Started on metoprolol 50 mg twice a day. Restart home medications and will be continued on IV Lasix and IV steroids along with breathing treatments and follow closely. Pulmonary and cardiology is following. Continue with current management and further recommendations based on the clinical course. Discussed with his daughter at bedside. Prognosis is guarded. Time with Patient: Greater than 30
[2017-11-04 05:40] LABS: Glucose,Whole Blood 162 mg/dL (75-99)
[2017-11-04] MEDS: methylPREDNISolone SOD SUCCI 40 MG/ML 1 ML VIAL IV SCH ×4 (06:19→23:29)
[2017-11-04] MEDS: PANTOPRAZOLE 40 MG TABLET PO SCH (06:19)
[2017-11-04] MEDS: INSULIN ASPART 100 UNIT/ML 1 ML 10 ML VIAL SQ SCH ×4 (06:19→21:19)
[2017-11-04 06:40] LABS: Basophils % (A) 0 %; Eosinophils % (A) 0 %; HCT 45.9 % (34.0-46.0); Hypochromasia Moderate; Lymphocytes # (A) 0.5 k/uL (1.0-4.8); Lymphocytes % (A) 4 %; MCH 30.3 pg (25.0-35.0); MCHC 30.5 g/dL (31.0-37.0); MCV 99.6 fL (80.0-100.0); Macrocytosis Slight; Mean Platelet Volume 7.9; Monocytes # (A) 0.3 k/uL (0-1.0); Monocytes % (A) 3 %; Neutrophils # (A) 9.2 k/uL (1.3-7.7); Neutrophils % (A) 92 %; Platelet Count 242 k/uL (150-450); RBC 4.61 m/uL (3.80-5.40); RDW 15.4 % (11.5-15.5); WBC 10.1 k/uL (3.8-10.6)
[2017-11-04 06:56] LABS: Calcium 9.1 mg/dL (8.4-10.2); Potassium 5.1 mmol/L (3.5-5.1)
[2017-11-04] MEDS: IPRATROPIUM 0.5 MG/2.5 ML NEBU INHALATION SCH ×4 (07:20→19:52)
[2017-11-04] MEDS: DIGOXIN 250 MCG TAB PO SCH (07:30)
[2017-11-04] MEDS: LISINOPRIL 5 MG TAB PO SCH (07:30)
[2017-11-04] MEDS: METOPROLOL TARTRATE 50 MG TAB PO SCH ×2 (07:30→21:18)
[2017-11-04] MEDS: NICOTINE 21MG/24HR PATCH TRANSDERM SCH (07:31)
[2017-11-04] MEDS: FUROSEMIDE 10 MG/ML 2 ML VIAL IV SCH (07:31)
[2017-11-04] MEDS: SPIRONOLACTONE 25 MG TAB PO SCH (07:31)
[2017-11-04] MEDS: cefTRIAXone IN SWFI 1,000 MG/10 ML SYRINGE IVP SCH (07:37)
--- NOTE | 2017-11-04 09:37 | P.PN ---
Subjective Progress Note Date: 11/04/17 Principal diagnosis: A. fib with RVR This is a pleasant 67-year-old female patient with a past medical history significant for chronic atrial fibrillation on oral anticoagulation with Coumadin as well as history of CVA causing right sided weakness as well as slurred speech and history of chronic obstructive pulmonary disease on oxygen at home presented to the hospital complaining of shortness of breath. The patient does have communication problem and she cannot carry on conversation but she can answer the questions with yes or no. Apparently she presented to the emergency room with a worsening dyspnea. No indication of any chest pain or chest discomfort. No dizziness or lightheadedness. No feeling of heart racing or fluttering and no syncope. The patient was diagnosed with COPD exacerbation as well as CHF exacerbation. The chest x-ray showed findings consistent with pulmonary edema. The EKG showed A. fib with RVR. The patient is known to have chronic atrial fibrillation from before. No history of coronary artery disease. The BNP came in to be elevated as well. The CBC and BMP came in to be within normal limits. The patient did have an echocardiogram was performed in April 2017 and the echo revealed mild cardiomyopathy with EF around 45%. The patient does have very diminished breathing sounds bilaterally and also bilateral lower extremities edema more significant on the right side than the left side. The patient was started on treatment for COPD exacerbation and also she was started on IV Lasix. I'll follow-up with the patient today, she seems to be feeling better in term of shortness of breath. She still have bilateral rhonchi and bilateral lower extremities edema. She still in atrial fibrillation but the heart rate is definitely better controlled than yesterday. She is off the Cardizem drip after we increase the dose of metoprolol yesterday. I am going to increase the dose of Lasix IV to 40 mg twice a day. Continue the current dose of metoprolol. Continue oral anticoagulation was common and obtain INR for today. Objective - Vital Signs Vital signs: Vital Signs Temp 97.7 F 11/04/17 07:40 Pulse 71 11/04/17 07:40 Resp 18 11/04/17 07:40 BP 115/69 11/04/17 07:40 Pulse Ox 94 L 11/04/17 07:40 Intake & Output 11/03/17 11/04/17 11/04/17 18:59 06:59 18:59 Intake Total 769.667 23.5 240 Balance 769.667 23.5 240 Intake: Intake, IV Titration 49.667 23.5 Amount Diltiazem 50 mg In Sodium 49.667 23.5 Chloride 0.9% 40 ml @ 5 MG/HR 5 mls/hr IV .Q10H [facility] Rx#:[id number] Oral 720 240 Other: Voiding Method Bedpan Diaper # Voids 1 2 # Bowel Movements 1 - Constitutional General appearance: Present: no acute distress - Respiratory Respiratory: bilateral: rhonchi - Cardiovascular Rhythm: irregularly irregular Heart sounds: normal: S1, S2 - Labs CBC & Chem 7: 11/04/17 05:55 11/04/17 05:55 Labs: Abnormal Lab Results - Last 24 Hours (Table) 11/03/17 11/03/17 11/03/17 Range/Units 11:44 16:24 20:46 MCHC (31.0-37.0) g/dL Neutrophils # (1.3-7.7) k/uL Lymphocytes # (1.0-4.8) k/uL BUN (7-17) mg/dL Glucose (74-99) mg/dL POC Glucose (mg/dL) 240 H 154 H 183 H (75-99) mg/dL 11/04/17 11/04/17 11/04/17 Range/Units 05:38 05:55 05:55 MCHC 30.5 L (31.0-37.0) g/dL Neutrophils # 9.2 H (1.3-7.7) k/uL Lymphocytes # 0.5 L (1.0-4.8) k/uL BUN 38 H (7-17) mg/dL Glucose 154 H (74-99) mg/dL POC Glucose (mg/dL) 162 H (75-99) mg/dL Microbiology - Last 24 Hours (Table) 11/02/17 13:56 Blood Culture Gram Stain - Preliminary Blood Blood Culture - Preliminary Group D Enterococcus 11/02/17 13:56 Blood Culture - Final Blood Assessment and Plan Assessment: Assessment #1 acute hypoxic respiratory failure #2 CHF exacerbation secondary to systolic dysfunction. #3 atrial fibrillation with RVR. #4 known chronic atrial fibrillation on oral anticoagulation was #5 mild cardiomyopathy with an ejection fraction of 45%. Plan #1 increase the dose of IV Lasix to 40 twice a day #2 continue the current dose of metoprolol #3 continue oral anticoagulation and obtain an INR #4 follow-up with the patient
--- NOTE | 2017-11-04 09:59 | P.PN ---
Subjective Progress Note Date: 11/04/17 67-year-old female patient, known history of COPD, CHF and chronic atrial fibrillation addition to a previous history of left-sided stroke with expressive aphasia and right-sided weakness, presents to the hospital because of worsening shortness of breath. The patient continues to smoke cigarettes on a daily basis. Her breathing has been gradually getting worse over the past week or so. She comes into the MRSA problem because of worsening shortness of breath and she was found to be in atrial fibrillation with rapid ventricular response and a heart rate in the 140-150 range. The patient has been maintained on a combination of metoprolol for rate control and anticoagulation with Coumadin regarding her atrial fibrillation. She is also on Spiriva and Ventolin nebulized she was on Estrace basis regarding her COPD. She is known to have some mild degree of CHF and a chest x-ray on admission showed failure and is a little edema. The patient was given Lasix. The patient was started on a Cardizem drip. The INR is therapeutic at this point in time. Lactic acid level is at 3.2. White cell count is not elevated. Troponin first set is negative. ProBNP level is 1540. The patient is admitted to the hospital for this reason. Her latest echocardiogram from 05/01/2017 shows an ejection fraction of 45-50% consistent with mild LV impairment and the right ventricle is moderately enlarged and the patient has moderate mitral regurgitation and severe mitral stenosis and severe tricuspid regurgitation with a PA pressure of around 48. The patient was seen again today 11/03/2017 in follow-up on the selective care unit. She is currently awake and alert in no acute distress. She is maintaining O2 saturations up to 100% on 2 L/m per nasal cannula. She remains tachycardic in 120s in atrial fibrillation and remains on a Cardizem drip at 5 mg per hour. She is being gently diuresed with Lasix 20 milligrams IV every 12 hours. She is continued on treatment for her COPD exacerbation as well as cleaning IV Solu-Medrol, bronchodilators. On 11/04/2017, the patient is doing well. Less shortness of breath compared to yesterday. The patient is on Cardizem drip at 5 mg an hour. The patient is on Lasix 40 mg IV push every 12 hours. The patient is on Solu-Medrol which has been tapered down to 40 mg every 6 hours. The patient is also on long-term anticoagulation with warfarin and INR from 2 days ago was therapeutic. She is not having any new complaints to she is calm and comfortable. Overall pulmonate status improved and the patient is obviously less short of breath compared to yesterday. Objective - Vital Signs Vital signs: Vital Signs Temp 97.7 F 11/04/17 07:40 Pulse 71 11/04/17 07:40 Resp 18 11/04/17 07:40 BP 115/69 11/04/17 07:40 Pulse Ox 94 L 11/04/17 07:40 Intake & Output 11/03/17 11/04/17 11/04/17 18:59 06:59 18:59 Intake Total 769.667 23.5 240 Balance 769.667 23.5 240 Intake: Intake, IV Titration 49.667 23.5 Amount Diltiazem 50 mg In Sodium 49.667 23.5 Chloride 0.9% 40 ml @ 5 MG/HR 5 mls/hr IV .Q10H [facility] Rx#:[id number] Oral 720 240 Other: Voiding Method Bedpan Diaper # Voids 1 2 # Bowel Movements 1 - Exam Gen. appearance the patient is a mild degree of respiratory distress even at rest. The patient has some facial asymmetry related to previous CVA. She is not using accessory muscles of breathing. Head exam was generally normal. There was no scleral icterus or corneal arcus. Mucous membranes were moist. Neck was supple and without jugular venous distension, thyromegaly, or carotid bruits. Carotids were easily palpable bilaterally. There was no adenopathy. Lungs sounds are diminished bilaterally. There is some bibasilar crackles. Scattered expiratory wheezes heard throughout the lung moraes bilaterally especially upon forceful respiratory maneuvers. Heart sounds are irregular, positive S1-S2 and there is a faint systolic ejection murmur grade 2/6 heard throughout the precordium. Abdominal exam revealed normal bowel sounds. The abdomen was soft, non-tender, and without masses, organomegaly, or appreciable enlargement of the abdominal aorta. Examination of the extremities revealed easily palpable radial, femoral and pedal pulses. There was no cyanosis, clubbing and the patient has +1-2 pitting edema in lower extremities bilaterally. Neurologically the patient is awake. The patient is aphasic. She has chronic hemiplegia on the right side with right-sided spasticity and weakness. Facial asymmetry is present. There is expressive aphasia. - Labs CBC & Chem 7: 11/04/17 05:55 11/04/17 05:55 Labs: Abnormal Lab Results - Last 24 Hours (Table) 11/03/17 11/03/17 11/03/17 Range/Units 11:44 16:24 20:46 MCHC (31.0-37.0) g/dL Neutrophils # (1.3-7.7) k/uL Lymphocytes # (1.0-4.8) k/uL BUN (7-17) mg/dL Glucose (74-99) mg/dL POC Glucose (mg/dL) 240 H 154 H 183 H (75-99) mg/dL 11/04/17 11/04/17 11/04/17 Range/Units 05:38 05:55 05:55 MCHC 30.5 L (31.0-37.0) g/dL Neutrophils # 9.2 H (1.3-7.7) k/uL Lymphocytes # 0.5 L (1.0-4.8) k/uL BUN 38 H (7-17) mg/dL Glucose 154 H (74-99) mg/dL POC Glucose (mg/dL) 162 H (75-99) mg/dL Microbiology - Last 24 Hours (Table) 11/02/17 13:56 Blood Culture Gram Stain - Preliminary Blood Blood Culture - Preliminary Group D Enterococcus 11/02/17 13:56 Blood Culture - Final Blood Assessment and Plan Plan: Assessment 1 acute dyspnea with acute hypoxic respiratory failure secondary to a combination of CHF exacerbation and COPD, improving 2 chronic atrial fibrillation, rapid ventricular response at a time of admission currently on a Cardizem drip for rate control and the patient is therapeutic and the PT/INR 3 CHF mild systolic dysfunction and the patient went into acute CHF at a time of admission because of A. fib/RVR. Note that the patient has valvular heart disease with moderate mitral regurgitation and severe mitral stenosis which probably exacerbated atrial fibrillation and CHF in addition. The patient CHF is improving and the patient's heart rate is under better control currently on IV Lasix 4 COPD with secondary exacerbation, currently on accommodation bronchodilators and steroids 5 history of CVA with right-sided hemiplegia and expressive aphasia. The patient is essentially bedridden 6 smoking 7 hypertension 8 hyperlipidemia 9 valvular heart disease, in the form of moderate mitral regurgitation and severe mitral stenosis with secondary pulmonary hypertension and the patient is also mild impairment of the LV function 10 mild lactic acidosis, sepsis ruled out. Plan May need to cut down the Lasix within the next 24 hours. Continue IV Solu Medrol for another 24 hours. May switch to oral Cardizem and metoprolol for rate control. Patient is also on digoxin 0.25 mg daily basis. Continued deterioration with Coumadin and monitor the PT/INR. Overall condition is improving.
[2017-11-04 11:51] LABS: Glucose,Whole Blood 224 mg/dL (75-99)
[2017-11-04 13:20] LABS: Prothrombin Time 26.9 sec (9.0-12.0)
--- NOTE | 2017-11-04 13:33 | P.PN ---
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 Patient was also found have atrial fibrillation with rapid ventricular rate while ER and was started on Cardizem drip. Patient denied any complaints of chest pain. No nausea vomiting or abdominal pain. Patient was having cough and not able to bring out any sputum. No headache or dizziness or lightheadedness. Patient does have bilateral lower extremities swelling. Chest x-ray showedredemonstration of very mild interstitial edema and marked cardiomegaly, congestive heart failure. Patient was started on IV steroids and breathing treatments and Lasix IV. Last echocardiogram done on 05/01/2017 showed ejection fraction 45-50%, moderately enlarged RV, severely dilated LA, severely thickened mitral valve leaflets, moderate MR. Severe mitral stenosis severe tricuspid regurgitation, and moderate pulmonary hypertension with RVSP 46.68 mmhg. BNP 1540 INR 2.6 and lactic acid 3.2 EKG showed atrial fibrillation with a rapid ventricular rate. 11/03/2017 Patient's breathing status is slightly improved. Otherwise still having lower extremities swelling. Continued on IV steroids. Dose increased to 40 mg every 8 hourly. Lasix will be continued intravenously. No complaints of chest pain or worsening shortof breath. No nausea vomiting or abdominal pain. No diarrhea. Otherwise patient does have expressive dysphagia from previous CVA Discussed with her daughter at bedside in detail. 11/04/2017 Patient's breathing status is improving. Still having lower extremities swelling and bibasilar crackles. Patient is being continued on IV Lasix. Otherwise no acute overnight issues. Pulmonary and cardiology is following. Current medications reviewed Objective - Vital Signs Vital signs: Vital Signs Temp 97.7 F 11/04/17 07:40 Pulse 91 11/04/17 12:00 Resp 17 11/04/17 12:00 BP 103/57 11/04/17 12:00 Pulse Ox 98 11/04/17 12:00 Intake & Output 11/03/17 11/04/17 11/04/17 18:59 06:59 18:59 Intake Total 769.667 23.5 480 Output Total 300 Balance 769.667 23.5 180 Intake: Intake, IV Titration 49.667 23.5 Amount Diltiazem 50 mg In Sodium 49.667 23.5 Chloride 0.9% 40 ml @ 5 MG/HR 5 mls/hr IV .Q10H [facility] Rx#:[id number] Oral 720 480 Output: Urine 300 Other: Voiding Method Bedpan Diaper # Voids 1 2 1 # Bowel Movements 1 - Exam PHYSICAL EXAMINATION: Patient is lying in the bed comfortably, no acute distress, awake alert and oriented.. HEENT: Normocephalic. Neck is supple. Pupils reactive. Nostrils clear. Oral cavity is moist. Ears reveal no drainage. Neck reveals no JVD, carotid bruits, or thyromegaly. CHEST EXAMINATION: Trachea is central. Symmetrical expansion. Bibasilar crackles. Prolonged expiration Lung moraes clear to auscultation and percussion. CARDIAC: Normal S1, S2 with no gallops. Irregularly irregular ABDOMEN: Soft. Bowel sounds normal. No organomegaly. No abdominal bruits. Extremities: 3+ edema. Chronic venous stasis changes. No clubbing or cyanosis Neurologically awake, alert, oriented x3 . Right-sided hemiparalysis. Skin: No rash or skin lesions. Psychiatric: Coperative. Nonsuicidal Musculoskeletal: No joint swelling or deformity. Normal range of motion. - Labs CBC & Chem 7: 11/04/17 05:55 11/04/17 05:55 Labs: Abnormal Lab Results - Last 24 Hours (Table) 11/03/17 11/03/17 11/04/17 Range/Units 16:24 20:46 05:38 MCHC (31.0-37.0) g/dL Neutrophils # (1.3-7.7) k/uL Lymphocytes # (1.0-4.8) k/uL PT (9.0-12.0) sec INR (<1.2) BUN (7-17) mg/dL Glucose (74-99) mg/dL POC Glucose (mg/dL) 154 H 183 H 162 H (75-99) mg/dL 11/04/17 11/04/17 11/04/17 Range/Units 05:55 05:55 11:34 MCHC 30.5 L (31.0-37.0) g/dL Neutrophils # 9.2 H (1.3-7.7) k/uL Lymphocytes # 0.5 L (1.0-4.8) k/uL PT (9.0-12.0) sec INR (<1.2) BUN 38 H (7-17) mg/dL Glucose 154 H (74-99) mg/dL POC Glucose (mg/dL) 224 H (75-99) mg/dL 11/04/17 Range/Units 13:00 MCHC (31.0-37.0) g/dL Neutrophils # (1.3-7.7) k/uL Lymphocytes # (1.0-4.8) k/uL PT 26.9 H (9.0-12.0) sec INR 3.0 H (<1.2) BUN (7-17) mg/dL Glucose (74-99) mg/dL POC Glucose (mg/dL) (75-99) mg/dL Microbiology - Last 24 Hours (Table) 11/02/17 13:56 Blood Culture Gram Stain - Preliminary Blood Blood Culture - Preliminary Group D Enterococcus Assessment and Plan Assessment: Acute hypoxic respiratory failure with pulse ox 88% on admission. Multifactorial due to CHF and COPD. Acute COPD exacerbation Acute on chronic CHF with systolic dysfunction is expected 45-50% and 1 with valvular heart disease Atrial fibrillation with rapid ventricular rate. Off Cardizem drip now Valvular heart disease with severe TR and MR and Moderate pulmonary hypertension with RVSP 46.68 mmhg. Chronic atrial fibrillation on anticoagulation witb Coumadin. history of CVA with right-sided hemiplegia and difficulty speech Lactic acidosis due to dehydration and volume depletion on admission. Resolved Hypertension Hyperlipidemia Osteoarthritis GERD Currently everyday smoker Plan: Patient is off Cardizem drip. Started on metoprolol 50 mg twice a day. Restart home medications and will be continued on IV Lasix and IV steroids along with breathing treatments and follow closely. Pulmonary and cardiology is following. Continue with current management and further recommendations based on the clinical course. Discussed with his daughter at bedside. Prognosis is guarded. Time with Patient: Greater than 30
[2017-11-04] MEDS: DILTIAZEM 50 MG in SODIUM CHLORIDE 0.9% 40 ML IV SCH (15:57)
[2017-11-04 16:39] LABS: Glucose,Whole Blood 145 mg/dL (75-99)
[2017-11-04 21:12] LABS: Glucose,Whole Blood 192 mg/dL (75-99)
[2017-11-04] MEDS: WARFARIN 5 MG TAB PO SCH (21:18)
[2017-11-04] MEDS: FUROSEMIDE 10 MG/ML 4 ML VIAL IV SCH (21:20)
[2017-11-05 06:14] LABS: INR 3.2 (<1.2)
[2017-11-05] MEDS: methylPREDNISolone SOD SUCCI 40 MG/ML 1 ML VIAL IV SCH ×2 (06:31→13:37)
[2017-11-05] MEDS: NICOTINE 21MG/24HR PATCH TRANSDERM SCH (06:32)
[2017-11-05] MEDS: PANTOPRAZOLE 40 MG TABLET PO SCH (06:32)
[2017-11-05 06:39] LABS: Glucose,Whole Blood 146 mg/dL (75-99)
[2017-11-05] MEDS: INSULIN ASPART 100 UNIT/ML 1 ML 10 ML VIAL SQ SCH ×4 (06:39→22:44)
[2017-11-05] MEDS: IPRATROPIUM 0.5 MG/2.5 ML NEBU INHALATION SCH ×4 (07:52→19:09)
[2017-11-05] MEDS: METOPROLOL TARTRATE 50 MG TAB PO SCH ×2 (08:24→21:31)
[2017-11-05] MEDS: SPIRONOLACTONE 25 MG TAB PO SCH (08:24)
[2017-11-05] MEDS: DIGOXIN 250 MCG TAB PO SCH (08:24)
[2017-11-05] MEDS: LISINOPRIL 5 MG TAB PO SCH (08:24)
[2017-11-05] MEDS: FUROSEMIDE 10 MG/ML 4 ML VIAL IV SCH ×2 (08:24→21:31)
[2017-11-05] MEDS: cefTRIAXone IN SWFI 1,000 MG/10 ML SYRINGE IVP SCH (08:32)
[2017-11-05 11:24] LABS: Glucose,Whole Blood 191 mg/dL (75-99)
[2017-11-05] MEDS ORDERED: VANCOMYCIN IV PER PHARMACY 1 EACH MISC MISCELLANE PRN ×2 (12:22→12:29)
--- NOTE | 2017-11-05 12:25 | P.PN ---
Subjective Progress Note Date: 11/05/17 Principal diagnosis: Acute dyspnea with acute hypoxemic respiratory failure secondary to combination of CHF and COPD exacerbation, improving 67-year-old female patient, known history of COPD, CHF and chronic atrial fibrillation addition to a previous history of left-sided stroke with expressive aphasia and right-sided weakness, presents to the hospital because of worsening shortness of breath. The patient continues to smoke cigarettes on a daily basis. Her breathing has been gradually getting worse over the past week or so. She comes into the MRSA problem because of worsening shortness of breath and she was found to be in atrial fibrillation with rapid ventricular response and a heart rate in the 140-150 range. The patient has been maintained on a combination of metoprolol for rate control and anticoagulation with Coumadin regarding her atrial fibrillation. She is also on Spiriva and Ventolin nebulized she was on Estrace basis regarding her COPD. She is known to have some mild degree of CHF and a chest x-ray on admission showed failure and is a little edema. The patient was given Lasix. The patient was started on a Cardizem drip. The INR is therapeutic at this point in time. Lactic acid level is at 3.2. White cell count is not elevated. Troponin first set is negative. ProBNP level is 1540. The patient is admitted to the hospital for this reason. Her latest echocardiogram from 05/01/2017 shows an ejection fraction of 45-50% consistent with mild LV impairment and the right ventricle is moderately enlarged and the patient has moderate mitral regurgitation and severe mitral stenosis and severe tricuspid regurgitation with a PA pressure of around 48. The patient was seen again today 11/03/2017 in follow-up on the selective care unit. She is currently awake and alert in no acute distress. She is maintaining O2 saturations up to 100% on 2 L/m per nasal cannula. She remains tachycardic in 120s in atrial fibrillation and remains on a Cardizem drip at 5 mg per hour. She is being gently diuresed with Lasix 20 milligrams IV every 12 hours. She is continued on treatment for her COPD exacerbation as well as cleaning IV Solu-Medrol, bronchodilators. On 11/04/2017, the patient is doing well. Less shortness of breath compared to yesterday. The patient is on Cardizem drip at 5 mg an hour. The patient is on Lasix 40 mg IV push every 12 hours. The patient is on Solu-Medrol which has been tapered down to 40 mg every 6 hours. The patient is also on long-term anticoagulation with warfarin and INR from 2 days ago was therapeutic. She is not having any new complaints to she is calm and comfortable. Overall pulmonary status improved and the patient is obviously less short of breath compared to yesterday. On 11/05/2017 patient seen in follow-up on selective care unit. She is resting comfortably in bed, she has expressive aphasia, her and her sister are at the bedside, and they both agree patient's breathing is improving, patient is less wheezy and dyspneic. Remains in atrial fibrillation, with a rate of 79 BPM. Room air pulse ox is 90%, on 2 L per nasal cannula she is 98%, remains afebrile, lung sounds are diminished, with some bibasilar crackles, no wheezing noted on today's exam. Patient is diuresing, currently on Lasix 40 mg every 12 hours. Continues on empiric antibiotics in the form of Rocephin, and nebulized treatments in addition to IV Solu-Medrol. Objective - Vital Signs Vital signs: Vital Signs Temp 97 F L 11/05/17 08:00 Pulse 92 11/05/17 11:39 Resp 18 11/05/17 08:00 BP 114/62 11/05/17 08:00 Pulse Ox 90 L 11/05/17 08:00 Intake & Output 11/04/17 11/05/17 11/05/17 18:59 06:59 18:59 Intake Total 720 240 Output Total 300 Balance 420 240 Weight 103.5 kg Intake: Oral 720 240 Output: Urine 300 Other: Voiding Method Diaper # Voids 0 2 1 # Bowel Movements 0 0 - Exam Gen. appearance the patient is a mild degree of respiratory distress even at rest. The patient has some facial asymmetry related to previous CVA. She is not using accessory muscles of breathing. Head exam was generally normal. There was no scleral icterus or corneal arcus. Mucous membranes were moist. Neck was supple and without jugular venous distension, thyromegaly, or carotid bruits. Carotids were easily palpable bilaterally. There was no adenopathy. Lungs sounds are diminished bilaterally. There is some bibasilar crackles. No wheezing noted on today's exam. Heart sounds are irregular, positive S1-S2 and there is a faint systolic ejection murmur grade 2/6 heard throughout the precordium. Abdominal exam revealed normal bowel sounds. The abdomen was soft, non-tender, and without masses, organomegaly, or appreciable enlargement of the abdominal aorta. Examination of the extremities revealed easily palpable radial, femoral and pedal pulses. There was no cyanosis, clubbing and the patient has +1-2 pitting edema in lower extremities bilaterally. Neurologically the patient is awake. The patient is aphasic. She has chronic hemiplegia on the right side with right-sided spasticity and weakness. Facial asymmetry is present. There is expressive aphasia. - Labs CBC & Chem 7: 11/04/17 05:55 11/04/17 05:55 Labs: Abnormal Lab Results - Last 24 Hours (Table) 11/04/17 11/04/17 11/04/17 Range/Units 13:00 16:35 21:11 PT 26.9 H (9.0-12.0) sec INR 3.0 H (<1.2) POC Glucose (mg/dL) 145 H 192 H (75-99) mg/dL 11/05/17 11/05/17 11/05/17 Range/Units 05:37 06:38 11:21 PT 29.0 H (9.0-12.0) sec INR 3.2 H (<1.2) POC Glucose (mg/dL) 146 H 191 H (75-99) mg/dL Microbiology - Last 24 Hours (Table) 11/02/17 13:56 Blood Culture Gram Stain - Final Blood Blood Culture - Final Enterococcus faecium Assessment and Plan Plan: Assessment: 1 acute dyspnea with acute hypoxic respiratory failure secondary to a combination of CHF exacerbation and COPD, improving 2 chronic atrial fibrillation, rapid ventricular response at a time of admission currently on a Cardizem drip for rate control and the patient is therapeutic and the PT/INR 3 CHF mild systolic dysfunction and the patient went into acute CHF at a time of admission because of A. fib/RVR. Note that the patient has valvular heart disease with moderate mitral regurgitation and severe mitral stenosis which probably exacerbated atrial fibrillation and CHF in addition. The patient CHF is improving and the patient's heart rate is under better control currently on IV Lasix 4 bacteremia, blood cultures positive for enterococcus faecium 4 COPD with secondary exacerbation, currently on accommodation bronchodilators and steroids 5 history of CVA with right-sided hemiplegia and expressive aphasia. The patient is essentially bedridden 6 smoking 7 hypertension 8 hyperlipidemia 9 valvular heart disease, in the form of moderate mitral regurgitation and severe mitral stenosis with secondary pulmonary hypertension and the patient is also mild impairment of the LV function 10 mild lactic acidosis, sepsis ruled out. Plan Blood cultures are positive for Enterococcus faecium. Start vancomycin pharmacy to dose, repeat blood cultures, will discuss with attending physician. From pulmonary standpoint, patient continues to improve, less bronchospastic and dyspneic. We will switch the IV Solu-Medrol to oral prednisone, continue with IV Lasix, cardiology is dosing the diuretics. Continue nebulized bronchodilators. Smoking cessation was strongly encouraged I performed a history & physical examination of the patient and discussed their management with my nurse practitioner, Ashleigh Odonnell. I reviewed the nurse practitioner's note and agree with the documented findings and plan of care. Lung sounds are significant for bibasilar crackles. The findings and the impression was discussed with the patient. I attest to the documentation by the nurse practitioner. Time with Patient: Less than 30
[2017-11-05] MEDS ORDERED: VANCOMYCIN 1,750 MG in SODIUM CHLORIDE 0.9% 500 ML IVPB ONE (13:00)
--- NOTE | 2017-11-05 14:15 | P.PN ---
Subjective Progress Note Date: 11/05/17 This is a pleasant 67-year-old female patient with past history significant for chronic atrial fibrillation, on oral antral anticoagulation with Coumadin as well as history of CVA causing right-sided weakness as well as slurred speech and a history of chronic obstructive pulmonary disease on oxygen at home. She presented to the hospital with complaints of shortness of breath. Patient does have communication problems and therefore only answers yes or no. She presented to the emergency department with worsening dyspnea. No complex chest discomfort no dizziness or lightheadedness and no palpitations. Patient was diagnosed with COPD exacerbation as well as CHF exacerbation. The EKG also showed atrial fibrillation with rapid ventricular response. NT proBNP was elevated. CBC and BMP came in to be a within normal limits. Echocardiogram from April 2017 revealed mild cardiomyopathy with an ejection fraction of around 45%. She remains off Cardizem drip and heart rate is currently controlled with digoxin 250 g by mouth daily and metoprolol tartrate 50 mg by mouth twice a day. Upon examination, patient denies complaints of shortness of breath, chest discomfort, or palpitations. Objective - Vital Signs Vital signs: Vital Signs Temp 97 F L 11/05/17 08:00 Pulse 92 11/05/17 11:39 Resp 18 11/05/17 08:00 BP 114/62 11/05/17 08:00 Pulse Ox 90 L 11/05/17 08:00 Intake & Output 11/04/17 11/05/17 11/05/17 18:59 06:59 18:59 Intake Total 720 240 Output Total 300 Balance 420 240 Weight 103.5 kg Intake: Oral 720 240 Output: Urine 300 Other: Voiding Method Diaper # Voids 0 2 1 # Bowel Movements 0 0 - Exam PHYSICAL EXAMINATION: HEENT: Head is atraumatic, normocephalic. Pupils equal, round. Neck is supple. There is no elevated jugular venous pressure. HEART EXAMINATION: Heart sounds irregularly irregular, S1 and S2 normal. No murmur or gallop heard. CHEST EXAMINATION: Lungs are clear. No chest wall tenderness is noted on palpation or with deep breathing. ABDOMEN: Soft, nontender. Bowel sounds are heard. No organomegaly noted. EXTREMITIES: 2+ peripheral pulses with evidence of trace peripheral edema and no calf tenderness noted. NEUROLOGIC patient is awake, alert and oriented. . - Labs CBC & Chem 7: 11/04/17 05:55 11/04/17 05:55 Labs: Abnormal Lab Results - Last 24 Hours (Table) 11/04/17 11/04/17 11/04/17 Range/Units 13:00 16:35 21:11 PT 26.9 H (9.0-12.0) sec INR 3.0 H (<1.2) POC Glucose (mg/dL) 145 H 192 H (75-99) mg/dL 11/05/17 11/05/17 11/05/17 Range/Units 05:37 06:38 11:21 PT 29.0 H (9.0-12.0) sec INR 3.2 H (<1.2) POC Glucose (mg/dL) 146 H 191 H (75-99) mg/dL Microbiology - Last 24 Hours (Table) 11/02/17 13:56 Blood Culture Gram Stain - Final Blood Blood Culture - Final Enterococcus faecium Assessment and Plan Assessment: #1 acute hypoxic respiratory failure #2 acute on chronic systolic congestive heart failure. #3 atrial fibrillation with RVR. #4 known chronic atrial fibrillation on oral anticoagulation was #5 mild cardiomyopathy with an ejection fraction of 45%. Plan: From cardiology's perspective, will continue current dose of IV Lasix. We will obtain a CBC and BMP in the morning. Continue to follow renal function, electrolytes, daily weights and intake and output. Further recommendations to follow. [employer] note has been reviewed, I agree with a documented findings and plan of care. Patient was seen and examined.
--- NOTE | 2017-11-05 14:26 | P.PN ---
Subjective 67-year-old female with a known history of CHF with systolic dysfunction ejection fraction 45-50% on 05/01/2017, chronic atrial fibrillation on anticoagulation with Coumadin, COPD, 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 Patient was also found have atrial fibrillation with rapid ventricular rate while ER and was started on Cardizem drip. Patient denied any complaints of chest pain. No nausea vomiting or abdominal pain. Patient was having cough and not able to bring out any sputum. No headache or dizziness or lightheadedness. Patient does have bilateral lower extremities swelling. Chest x-ray showedredemonstration of very mild interstitial edema and marked cardiomegaly, congestive heart failure. Patient was started on IV steroids and breathing treatments and Lasix IV. Last echocardiogram done on 05/01/2017 showed ejection fraction 45-50%, moderately enlarged RV, severely dilated LA, severely thickened mitral valve leaflets, moderate MR. Severe mitral stenosis severe tricuspid regurgitation, and moderate pulmonary hypertension with RVSP 46.68 mmhg. BNP 1540 INR 2.6 and lactic acid 3.2 EKG showed atrial fibrillation with a rapid ventricular rate. 11/03/2017 Patient's breathing status is slightly improved. Otherwise still having lower extremities swelling. Continued on IV steroids. Dose increased to 40 mg every 8 hourly. Lasix will be continued intravenously. No complaints of chest pain or worsening shortof breath. No nausea vomiting or abdominal pain. No diarrhea. Otherwise patient does have expressive dysphagia from previous CVA Discussed with her daughter at bedside in detail. 11/04/2017 Patient's breathing status is improving. Still having lower extremities swelling and bibasilar crackles. Patient is being continued on IV Lasix. Otherwise no acute overnight issues. Pulmonary and cardiology is following. 11/05/2017 Patient is feeling better but her blood cultures are positive for enterococcus CCM which is resistant to penicillins sensitive to vancomycin patient was started on vancomycin repeat blood cultures today and tomorrow will be obtained infectious disease will be consulted. Constitutional: Denied any fatigue denied any fever. Cardio vascular: denied any chest pain, palpitations Gastrointestinal denied any nausea vomiting Pulmonary: Denied any shortness of breath cough Neurologic denied any new focal deficits Objective - Vital Signs Vital signs: Vital Signs Temp 97 F L 11/05/17 08:00 Pulse 67 11/05/17 12:00 Resp 19 11/05/17 12:00 BP 117/83 11/05/17 12:00 Pulse Ox 98 11/05/17 12:00 Intake & Output 11/04/17 11/05/17 11/05/17 18:59 06:59 18:59 Intake Total 720 360 Output Total 300 Balance 420 360 Weight 103.5 kg Intake: Oral 720 360 Output: Urine 300 Other: Voiding Method Diaper Bedside Commode # Voids 0 2 1 # Bowel Movements 0 0 - Exam PHYSICAL EXAMINATION: GENERAL: The patient is alert and oriented x3, not in any acute distress. Well developed, well nourished. HEENT: Pupils are round and equally reacting to light. EOMI. No scleral icterus. No conjunctival pallor. Normocephalic, atraumatic. No pharyngeal erythema. No thyromegaly. CARDIOVASCULAR: S1 and S2 present. No murmurs, rubs, or gallops. PULMONARY: Chest is clear to auscultation, no wheezing or crackles. ABDOMEN: Soft, nontender, nondistended, normoactive bowel sounds. No palpable organomegaly. MUSCULOSKELETAL: No joint swelling or deformity. EXTREMITIES: No clubbing, bilateral pedal edema right more than left patient does have some cyanosis in the right lower extremity NEUROLOGICAL: Gross neurological examination did not reveal any focal deficits. SKIN: No rashes. - Labs CBC & Chem 7: 11/04/17 05:55 11/04/17 05:55 Labs: Abnormal Lab Results - Last 24 Hours (Table) 11/04/17 11/04/17 11/05/17 Range/Units 16:35 21:11 05:37 PT 29.0 H (9.0-12.0) sec INR 3.2 H (<1.2) POC Glucose (mg/dL) 145 H 192 H (75-99) mg/dL 11/05/17 11/05/17 Range/Units 06:38 11:21 PT (9.0-12.0) sec INR (<1.2) POC Glucose (mg/dL) 146 H 191 H (75-99) mg/dL Microbiology - Last 24 Hours (Table) 11/02/17 13:56 Blood Culture Gram Stain - Final Blood Blood Culture - Final Enterococcus faecium Assessment and Plan Plan: Acute hypoxic respiratory failure with pulse ox 88% on admission. Multifactorial due to CHF and COPD. Acute COPD exacerbation Acute on chronic CHF with systolic dysfunction is expected 45-50% and 1 with valvular heart disease Atrial fibrillation presently rate controlled patient is on high doses of digoxin as her dig levels were low. Bacteremia with enterococcus as mentioned above patient is on IV vancomycin source probably is urinary tract infection although there is no year available since patient was already started on antibiotics not up obtaining UA at this time Valvular heart disease with severe TR and MR and Moderate pulmonary hypertension with RVSP 46.68 mmhg. Chronic atrial fibrillation on anticoagulation witb Coumadin. Therapeutic on Coumadin history of CVA with right-sided hemiplegia and difficulty speech Lactic acidosis due to dehydration and volume depletion on admission. Resolved Hypertension Hyperlipidemia Osteoarthritis GERD Currently everyday smoker
[2017-11-05 16:53] LABS: Glucose,Whole Blood 221 mg/dL (75-99)
[2017-11-05 20:05] LABS: Glucose,Whole Blood 260 mg/dL (75-99)
[2017-11-05] MEDS ORDERED: WARFARIN 2 MG TAB PO SCH (21:00)
[2017-11-05] MEDS ORDERED: INSULIN ASPART 100 UNIT/ML 1 ML 10 ML VIAL SQ ONE (22:37)
[2017-11-06 06:01] LABS: Glucose,Whole Blood 109 mg/dL (75-99)
[2017-11-06 06:26] LABS: HCT 44.2 % (34.0-46.0); HGB 13.6 gm/dL (11.4-16.0); Hypochromasia Marked; MCH 30.9 pg (25.0-35.0); MCHC 30.6 g/dL (31.0-37.0); Macrocytosis Slight; Mean Platelet Volume 7.1; Platelet Count 236 k/uL (150-450); RBC 4.38 m/uL (3.80-5.40); RDW 15.9 % (11.5-15.5); WBC 10.2 k/uL (3.8-10.6)
[2017-11-06 06:47] LABS: Albumin 3.4 g/dL (3.5-5.0); Calcium 8.7 mg/dL (8.4-10.2); Total Bilirubin 0.8 mg/dL (0.2-1.3); Total Protein 6.2 g/dL (6.3-8.2)
[2017-11-06] MEDS: INSULIN ASPART 100 UNIT/ML 1 ML 10 ML VIAL SQ SCH ×4 (06:49→21:33)
[2017-11-06] MEDS: VANCOMYCIN 1,750 MG in SODIUM CHLORIDE 0.9% 500 ML IVPB SCH (06:51)
[2017-11-06] MEDS: PANTOPRAZOLE 40 MG TABLET PO SCH (06:52)
[2017-11-06] MEDS: IPRATROPIUM 0.5 MG/2.5 ML NEBU INHALATION SCH ×4 (08:10→19:34)
[2017-11-06] MEDS: LISINOPRIL 5 MG TAB PO SCH (08:30)
[2017-11-06] MEDS: predniSONE 20 MG TAB PO SCH (08:30)
[2017-11-06] MEDS: DIGOXIN 250 MCG TAB PO SCH (08:30)
[2017-11-06] MEDS: NICOTINE 21MG/24HR PATCH TRANSDERM SCH (08:30)
[2017-11-06] MEDS: FUROSEMIDE 10 MG/ML 4 ML VIAL IV SCH (08:30)
[2017-11-06] MEDS: METOPROLOL TARTRATE 50 MG TAB PO SCH ×2 (08:30→20:19)
[2017-11-06] MEDS: SPIRONOLACTONE 25 MG TAB PO SCH (08:31)
[2017-11-06 08:51] LABS: INR 3.8 (<1.2); Prothrombin Time 33.7 sec (9.0-12.0)
--- NOTE | 2017-11-06 10:13 | P.PN ---
Subjective Progress Note Date: 11/06/17 Principal diagnosis: A. fib with RVR This is a pleasant 67-year-old female patient with a past medical history significant for chronic atrial fibrillation on oral anticoagulation with Coumadin as well as history of CVA causing right sided weakness as well as slurred speech and history of chronic obstructive pulmonary disease on oxygen at home presented to the hospital complaining of shortness of breath. The patient does have communication problem and she cannot carry on conversation but she can answer the questions with yes or no. Apparently she presented to the emergency room with a worsening dyspnea. No indication of any chest pain or chest discomfort. No dizziness or lightheadedness. No feeling of heart racing or fluttering and no syncope. The patient was diagnosed with COPD exacerbation as well as CHF exacerbation. The chest x-ray showed findings consistent with pulmonary edema. The EKG showed A. fib with RVR. The patient is known to have chronic atrial fibrillation from before. No history of coronary artery disease. The BNP came in to be elevated as well. The CBC and BMP came in to be within normal limits. The patient did have an echocardiogram was performed in April 2017 and the echo revealed mild cardiomyopathy with EF around 45%. The patient does have very diminished breathing sounds bilaterally and also bilateral lower extremities edema more significant on the right side than the left side. The patient was started on treatment for COPD exacerbation and also she was started on IV Lasix. I'll follow-up with the patient today, she seems to be feeling better in term of shortness of breath. She still have bilateral rhonchi and bilateral lower extremities edema. She was controlled heart rate. I am going to increase the dose of IV Lasix to 80 mg twice a day, continue monitor the kidney function and electrolytes, and follow-up with the patient. Objective - Vital Signs Vital signs: Vital Signs Temp 96.4 F L 11/06/17 08:00 Pulse 91 11/06/17 08:00 Resp 16 11/06/17 08:00 BP 123/63 11/06/17 08:00 Pulse Ox 96 11/06/17 08:10 Intake & Output 11/05/17 11/06/17 11/06/17 18:59 06:59 18:59 Intake Total 360 120 240 Balance 360 120 240 Weight 105.1 kg Intake: Oral 360 120 240 Other: Voiding Method Bedside Commode Bedside Commode # Voids 1 3 1 # Bowel Movements 0 - Constitutional General appearance: Present: no acute distress - Respiratory Respiratory: bilateral: rales - Cardiovascular Rhythm: irregularly irregular Heart sounds: normal: S1, S2 - Labs CBC & Chem 7: 11/06/17 05:51 11/06/17 05:51 Labs: Abnormal Lab Results - Last 24 Hours (Table) 11/05/17 11/05/17 11/05/17 Range/Units 11:21 16:20 20:03 MCV (80.0-100.0) fL MCHC (31.0-37.0) g/dL RDW (11.5-15.5) % PT (9.0-12.0) sec INR (<1.2) BUN (7-17) mg/dL POC Glucose (mg/dL) 191 H 221 H 260 H (75-99) mg/dL Total Protein (6.3-8.2) g/dL Albumin (3.5-5.0) g/dL 11/06/17 11/06/17 11/06/17 Range/Units 05:51 05:51 05:59 MCV 101.0 H (80.0-100.0) fL MCHC 30.6 L (31.0-37.0) g/dL RDW 15.9 H (11.5-15.5) % PT (9.0-12.0) sec INR (<1.2) BUN 50 H (7-17) mg/dL POC Glucose (mg/dL) 109 H (75-99) mg/dL Total Protein 6.2 L (6.3-8.2) g/dL Albumin 3.4 L (3.5-5.0) g/dL 11/06/17 Range/Units 08:28 MCV (80.0-100.0) fL MCHC (31.0-37.0) g/dL RDW (11.5-15.5) % PT 33.7 H (9.0-12.0) sec INR 3.8 H (<1.2) BUN (7-17) mg/dL POC Glucose (mg/dL) (75-99) mg/dL Total Protein (6.3-8.2) g/dL Albumin (3.5-5.0) g/dL Assessment and Plan Assessment: Assessment #1 acute hypoxic respiratory failure #2 CHF exacerbation secondary to systolic dysfunction. #3 atrial fibrillation with RVR. #4 known chronic atrial fibrillation on oral anticoagulation was #5 mild cardiomyopathy with an ejection fraction of 45%. Plan #1 increase the dose of IV Lasix to 80 twice a day #2 continue the current dose of metoprolol #3 continue oral anticoagulation and obtain an INR #4 follow-up with the patient
--- NOTE | 2017-11-06 11:27 | P.PN ---
Subjective Progress Note Date: 11/06/17 Principal diagnosis: Acute hypoxic respiratory failure secondary to combination of both systolic congestive heart failure and COPD exacerbation. 67-year-old female patient, known history of COPD, CHF and chronic atrial fibrillation addition to a previous history of left-sided stroke with expressive aphasia and right-sided weakness, presents to the hospital because of worsening shortness of breath. The patient continues to smoke cigarettes on a daily basis. Her breathing has been gradually getting worse over the past week or so. She comes into the MRSA problem because of worsening shortness of breath and she was found to be in atrial fibrillation with rapid ventricular response and a heart rate in the 140-150 range. The patient has been maintained on a combination of metoprolol for rate control and anticoagulation with Coumadin regarding her atrial fibrillation. She is also on Spiriva and Ventolin nebulized she was on Estrace basis regarding her COPD. She is known to have some mild degree of CHF and a chest x-ray on admission showed failure and is a little edema. The patient was given Lasix. The patient was started on a Cardizem drip. The INR is therapeutic at this point in time. Lactic acid level is at 3.2. White cell count is not elevated. Troponin first set is negative. ProBNP level is 1540. The patient is admitted to the hospital for this reason. Her latest echocardiogram from 05/01/2017 shows an ejection fraction of 45-50% consistent with mild LV impairment and the right ventricle is moderately enlarged and the patient has moderate mitral regurgitation and severe mitral stenosis and severe tricuspid regurgitation with a PA pressure of around 48. The patient was seen again today 11/03/2017 in follow-up on the selective care unit. She is currently awake and alert in no acute distress. She is maintaining O2 saturations up to 100% on 2 L/m per nasal cannula. She remains tachycardic in 120s in atrial fibrillation and remains on a Cardizem drip at 5 mg per hour. She is being gently diuresed with Lasix 20 milligrams IV every 12 hours. She is continued on treatment for her COPD exacerbation as well as cleaning IV Solu-Medrol, bronchodilators. On 11/04/2017, the patient is doing well. Less shortness of breath compared to yesterday. The patient is on Cardizem drip at 5 mg an hour. The patient is on Lasix 40 mg IV push every 12 hours. The patient is on Solu-Medrol which has been tapered down to 40 mg every 6 hours. The patient is also on long-term anticoagulation with warfarin and INR from 2 days ago was therapeutic. She is not having any new complaints to she is calm and comfortable. Overall pulmonary status improved and the patient is obviously less short of breath compared to yesterday. On 11/05/2017 patient seen in follow-up on selective care unit. She is resting comfortably in bed, she has expressive aphasia, her and her sister are at the bedside, and they both agree patient's breathing is improving, patient is less wheezy and dyspneic. Remains in atrial fibrillation, with a rate of 79 BPM. Room air pulse ox is 90%, on 2 L per nasal cannula she is 98%, remains afebrile, lung sounds are diminished, with some bibasilar crackles, no wheezing noted on today's exam. Patient is diuresing, currently on Lasix 40 mg every 12 hours. Continues on empiric antibiotics in the form of Rocephin, and nebulized treatments in addition to IV Solu-Medrol. The patient is seen again today 11/06/2017 in follow-up on the selective care unit. She is currently sitting up in bed. She is awake and alert in no acute distress. Maintaining good O2 saturations in the mid 90s on 2 L/m per nasal cannula. She's been afebrile. Rate is well controlled. White count 10.2. Hemoglobin 13.6. INR 3.8. Creatinine 1.00. She is currently on IV Lasix 80 mg every 12 hours. Objective - Vital Signs Vital signs: Vital Signs Temp 96.4 F L 11/06/17 08:00 Pulse 91 11/06/17 08:00 Resp 16 11/06/17 08:00 BP 123/63 11/06/17 08:00 Pulse Ox 96 11/06/17 08:10 Intake & Output 11/05/17 11/06/17 11/06/17 18:59 06:59 18:59 Intake Total 360 120 240 Balance 360 120 240 Weight 105.1 kg Intake: Oral 360 120 240 Other: Voiding Method Bedside Commode Bedside Commode Bedside Commode # Voids 1 3 1 # Bowel Movements 0 - Exam Gen. appearance the patient is a mild degree of respiratory distress even at rest. The patient has some facial asymmetry related to previous CVA. She is not using accessory muscles of breathing. Head exam was generally normal. There was no scleral icterus or corneal arcus. Mucous membranes were moist. Neck was supple and without jugular venous distension, thyromegaly, or carotid bruits. Carotids were easily palpable bilaterally. There was no adenopathy. Lungs sounds are diminished bilaterally. There is some bibasilar crackles. Heart sounds are irregular, positive S1-S2 and there is a faint systolic ejection murmur grade 2/6 heard throughout the precordium. Abdominal exam revealed normal bowel sounds. The abdomen was soft, non-tender, and without masses, organomegaly, or appreciable enlargement of the abdominal aorta. Examination of the extremities revealed easily palpable radial, femoral and pedal pulses. There was no cyanosis, clubbing and the patient has +1-2 pitting edema in lower extremities bilaterally. Neurologically the patient is awake. The patient is aphasic. She has chronic hemiplegia on the right side with right-sided spasticity and weakness. Facial asymmetry is present. There is expressive aphasia. - Labs CBC & Chem 7: 11/06/17 05:51 11/06/17 05:51 Labs: Abnormal Lab Results - Last 24 Hours (Table) 11/05/17 11/05/17 11/05/17 Range/Units 11:21 16:20 20:03 MCV (80.0-100.0) fL MCHC (31.0-37.0) g/dL RDW (11.5-15.5) % PT (9.0-12.0) sec INR (<1.2) BUN (7-17) mg/dL POC Glucose (mg/dL) 191 H 221 H 260 H (75-99) mg/dL Total Protein (6.3-8.2) g/dL Albumin (3.5-5.0) g/dL 11/06/17 11/06/17 11/06/17 Range/Units 05:51 05:51 05:59 MCV 101.0 H (80.0-100.0) fL MCHC 30.6 L (31.0-37.0) g/dL RDW 15.9 H (11.5-15.5) % PT (9.0-12.0) sec INR (<1.2) BUN 50 H (7-17) mg/dL POC Glucose (mg/dL) 109 H (75-99) mg/dL Total Protein 6.2 L (6.3-8.2) g/dL Albumin 3.4 L (3.5-5.0) g/dL 11/06/17 Range/Units 08:28 MCV (80.0-100.0) fL MCHC (31.0-37.0) g/dL RDW (11.5-15.5) % PT 33.7 H (9.0-12.0) sec INR 3.8 H (<1.2) BUN (7-17) mg/dL POC Glucose (mg/dL) (75-99) mg/dL Total Protein (6.3-8.2) g/dL Albumin (3.5-5.0) g/dL Assessment and Plan Assessment: Assessment 1 acute dyspnea with acute hypoxic respiratory failure secondary to a combination of acute exacerbation of systolic congestive heart failure and exacerbation and COPD 2 chronic atrial fibrillation, rapid ventricular response at a time of admission. 3 CHF mild systolic dysfunction and the patient went into acute CHF at a time of admission because of A. fib/RVR. Note that the patient has valvular heart disease with moderate mitral regurgitation and severe mitral stenosis which probably exacerbated atrial fibrillation and CHF in addition. 4 COPD with secondary exacerbation 5 history of CVA with right-sided hemiplegia and expressive aphasia. The patient is essentially bedridden 6 smoking 7 hypertension 8 hyperlipidemia 9 valvular heart disease, in the form of moderate mitral regurgitation and severe mitral stenosis with secondary pulmonary hypertension and the patient is also mild impairment of the LV function 10 mild lactic acidosis, sepsis ruled out. Plan: The patient is seen and evaluated by Dr. Delcid. She is again educated regarding importance of complete smoking cessation. NicoDerm patch is in place. She remains on Lasix now at 80 mg IV every 12 hours. Repeat a chest x- ray in the a.m. We'll continue to follow. I, the cosigning physician, performed a history & physical examination of the patient. Lungs sounds with faint crackles in the bilateral posterior bases. Maintaining good O2 saturations in the 90s on 2 L/m per nasal cannula. I discussed the assessment and plan of care with my nurse practitioner, Vicki Guerrero. I attest to the above note as dictated by her.
[2017-11-06 11:30] LABS: Glucose,Whole Blood 124 mg/dL (75-99)
--- NOTE | 2017-11-06 14:50 | CONS ---
CONSULTATION DATE OF SERVICE: 11/06/2017 REASON FOR CONSULTATION: Enterococcus faecium, positive blood cultures. HISTORY OF PRESENT ILLNESS: The patient is a 67-year-old female presented to the [facility] ER on 11/02/2017 with chief complaint of shortness of breath, apparently has been getting worse for a day or two prior to presentation to hospital. The patient becomes lethargic and could not ambulate without any residual dyspnea. No clear history of any fever, rigors and chills. On arrival to the ER, the patient did have a chest x-ray obtained which shows redemonstration of very mild interstitial edema and marked cardiomegaly of congestive heart failure. Patient who has been afebrile throughout her hospital stay. Did have a normal white count of 8.5. No UA during this admission. She did have blood cultures obtained on admission on 11/02, which came back positive with enterococcus faecium. Yesterday this was vancomycin sensitive but resistant to ampicillin. Vancomycin was added and Infectious Disease was consulted for further recommendation of antibiotic therapy. At the time of my evaluation, the patient has been sleepy and lethargic; however, she woke up to answer some simple question, not specifically for any abdominal pain she has been denying. No Bermudez catheter during this admission and the patient has no central lines or any hardware. However, overall history remains to be limited as the patient was unable to provide any reliable history. REVIEW OF SYSTEMS: Could not be reliably obtained, the positive points have been mentioned in the HPI. PAST MEDICAL HISTORY: Significant for atrial fibrillation, congestive heart failure, COPD, CVA, TIA, hypertension, hyperlipidemia, osteoarthritis, pneumonia, renal insufficiency. PAST SURGICAL HISTORY: , hernia repair, tonsillectomy, incarcerated umbilical hernia repair with omentum patch, , left knee with IM nailing. SOCIAL HISTORY: The patient is currently an everyday smoker. No history of drinking or drug use. FAMILY HISTORY: Mother with history of breast cancer. ALLERGIES: No known drug allergies. MEDICATIONS: The patient is currently on DuoNeb, Lanoxin, Lasix, NovoLog, Zestril, Lopressor, nicotine patch, Protonix, prednisone, aldactone, Ultram, vancomycin pharmacy to dose and Coumadin. PHYSICAL EXAMINATION: Her blood pressure is 100/66 with a pulse of 93, temperature is 96.4, she is 96% on 2 L nasal cannula. General description is an elderly female, lying in bed in no distress. No tachypnea or accessory muscle of respiration use. HEENT: Shows no pallor or scleral icterus. Oral mucosa is dry. NECK: Trachea central, no thyromegaly. LUNGS: Unlabored breathing with decreased breath sounds in the bases. No wheeze or crackle. HEART: S1, S2. Regular rate and rhythm. No murmur. ABDOMEN: Soft, mildly distended, no guarding. No organomegaly. EXTREMITIES: Some trace edema of feet. No cellulitis or any open wound. SKIN EXAMINATION: No rash or mass palpable. NEUROLOGIC: Patient is lethargic. Orientation, mood affect could not be determined. LABS: Hemoglobin 13.6, white count of 10.2 with a BUN of 15, creatinine 1.0. Blood culture with Enterococcus faecium that is vancomycin sensitive. DIAGNOSTIC IMPRESSION AND PLAN: Patient with Enterococcus faecium and bacteremia in a patient in the hospital with increasing shortness of breath with minimal exertion. The patient did have a chest x- ray which did show some congestive heart failure features, but no definite consolidation. The patient did not have any fever or elevated white count with a source of this Enterococcus faecium possible urinary versus abdominal; however, in view of the predominantly cardiac symptoms underlying a cardiac source will need to rule out if the abdominal and urine source eustachian came back to be negative. PLAN: 1. Blood culture repeated this time to make sure there is document recommendation of clearance of her bacteremia if any evidence of persistent bacteremia point more towards an intravascular source. 2. Will check a UA and cultures stat. If those are negative, will check a CT abdominal/pelvis with oral contrast and if those are negative, she will probably need a BERNARDO. 3. Vancomycin, pharmacy to dose target of 15. Follow closely. 4. Will follow up on the clinical condition and culture to further adjust medication if needed. Thank you for this consultation. Will follow this patient along with you. MMODL / IJN: [id number] /
--- NOTE | 2017-11-06 15:42 | P.PN ---
Subjective 67-year-old female with a known history of CHF with systolic dysfunction ejection fraction 45-50% on 05/01/2017, chronic atrial fibrillation on anticoagulation with Coumadin, COPD, 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 Patient was also found have atrial fibrillation with rapid ventricular rate while ER and was started on Cardizem drip. Patient denied any complaints of chest pain. No nausea vomiting or abdominal pain. Patient was having cough and not able to bring out any sputum. No headache or dizziness or lightheadedness. Patient does have bilateral lower extremities swelling. Chest x-ray showedredemonstration of very mild interstitial edema and marked cardiomegaly, congestive heart failure. Patient was started on IV steroids and breathing treatments and Lasix IV. Last echocardiogram done on 05/01/2017 showed ejection fraction 45-50%, moderately enlarged RV, severely dilated LA, severely thickened mitral valve leaflets, moderate MR. Severe mitral stenosis severe tricuspid regurgitation, and moderate pulmonary hypertension with RVSP 46.68 mmhg. BNP 1540 INR 2.6 and lactic acid 3.2 EKG showed atrial fibrillation with a rapid ventricular rate. 11/03/2017 Patient's breathing status is slightly improved. Otherwise still having lower extremities swelling. Continued on IV steroids. Dose increased to 40 mg every 8 hourly. Lasix will be continued intravenously. No complaints of chest pain or worsening shortof breath. No nausea vomiting or abdominal pain. No diarrhea. Otherwise patient does have expressive dysphagia from previous CVA Discussed with her daughter at bedside in detail. 11/04/2017 Patient's breathing status is improving. Still having lower extremities swelling and bibasilar crackles. Patient is being continued on IV Lasix. Otherwise no acute overnight issues. Pulmonary and cardiology is following. 11/05/2017 Patient is feeling better but her blood cultures are positive for enterococcus CCM which is resistant to penicillins sensitive to vancomycin patient was started on vancomycin repeat blood cultures today and tomorrow will be obtained infectious disease will be consulted. 11/06/2017 Patient can use to be on vancomycin overnight events patient is feeling well. Denied any abdominal pain at this time. Awaiting repeat blood cultures. Constitutional: Denied any fatigue denied any fever. Cardio vascular: denied any chest pain, palpitations Gastrointestinal denied any nausea vomiting Pulmonary: Denied any shortness of breath cough Neurologic denied any new focal deficits Objective - Vital Signs Vital signs: Vital Signs Temp 96.4 F L 11/06/17 08:00 Pulse 93 11/06/17 12:00 Resp 16 11/06/17 15:10 BP 100/66 11/06/17 12:00 Pulse Ox 96 11/06/17 12:00 Intake & Output 11/05/17 11/06/17 11/06/17 18:59 06:59 18:59 Intake Total 360 120 480 Balance 360 120 480 Weight 105.1 kg Intake: Oral 360 120 480 Other: Voiding Method Bedside Commode Bedside Commode Bedside Commode # Voids 1 3 1 # Bowel Movements 0 0 - Exam PHYSICAL EXAMINATION: GENERAL: The patient is alert and oriented x3, not in any acute distress. Well developed, well nourished. HEENT: Pupils are round and equally reacting to light. EOMI. No scleral icterus. No conjunctival pallor. Normocephalic, atraumatic. No pharyngeal erythema. No thyromegaly. CARDIOVASCULAR: S1 and S2 present. No murmurs, rubs, or gallops. PULMONARY: Chest is clear to auscultation, no wheezing or crackles. ABDOMEN: Soft, nontender, nondistended, normoactive bowel sounds. No palpable organomegaly. MUSCULOSKELETAL: No joint swelling or deformity. EXTREMITIES: No clubbing, bilateral pedal edema right more than left patient does have some cyanosis in the right lower extremity NEUROLOGICAL: Gross neurological examination did not reveal any focal deficits. SKIN: No rashes. - Labs CBC & Chem 7: 11/06/17 05:51 11/06/17 05:51 Labs: Abnormal Lab Results - Last 24 Hours (Table) 11/05/17 11/05/17 11/06/17 Range/Units 16:20 20:03 05:51 MCV 101.0 H (80.0-100.0) fL MCHC 30.6 L (31.0-37.0) g/dL RDW 15.9 H (11.5-15.5) % PT (9.0-12.0) sec INR (<1.2) BUN (7-17) mg/dL POC Glucose (mg/dL) 221 H 260 H (75-99) mg/dL Total Protein (6.3-8.2) g/dL Albumin (3.5-5.0) g/dL 11/06/17 11/06/17 11/06/17 Range/Units 05:51 05:59 08:28 MCV (80.0-100.0) fL MCHC (31.0-37.0) g/dL RDW (11.5-15.5) % PT 33.7 H (9.0-12.0) sec INR 3.8 H (<1.2) BUN 50 H (7-17) mg/dL POC Glucose (mg/dL) 109 H (75-99) mg/dL Total Protein 6.2 L (6.3-8.2) g/dL Albumin 3.4 L (3.5-5.0) g/dL 11/06/17 Range/Units 11:27 MCV (80.0-100.0) fL MCHC (31.0-37.0) g/dL RDW (11.5-15.5) % PT (9.0-12.0) sec INR (<1.2) BUN (7-17) mg/dL POC Glucose (mg/dL) 124 H (75-99) mg/dL Total Protein (6.3-8.2) g/dL Albumin (3.5-5.0) g/dL Assessment and Plan Plan: Acute hypoxic respiratory failure with pulse ox 88% on admission. Multifactorial due to CHF and COPD. Acute COPD exacerbation Acute on chronic CHF with systolic dysfunction is expected 45-50% and 1 with valvular heart disease Atrial fibrillation presently rate controlled patient is on high doses of digoxin as her dig levels were low. Bacteremia with enterococcus as mentioned above patient is on IV vancomycin source probably is urinary tract infection although there is no year available since patient was already started on antibiotics not up obtaining UA at this time Valvular heart disease with severe TR and MR and Moderate pulmonary hypertension with RVSP 46.68 mmhg. Chronic atrial fibrillation on anticoagulation witb Coumadin. Therapeutic on Coumadin history of CVA with right-sided hemiplegia and difficulty speech Lactic acidosis due to dehydration and volume depletion on admission. Resolved Hypertension Hyperlipidemia Osteoarthritis GERD Currently everyday smoker
[2017-11-06 16:55] LABS: Glucose,Whole Blood 294 mg/dL (75-99)
[2017-11-06] MEDS: FUROSEMIDE 10 MG/ML 10 ML VIAL IV SCH (20:22)
[2017-11-06 20:47] LABS: Glucose,Whole Blood 238 mg/dL (75-99)
[2017-11-06 20:52] LABS: Appearance,Urine Clear (Clear); Bilirubin,Urine Negative (Negative); Blood,Urine Trace (Negative); Color,Urine Yellow; Glucose,Urine (UA) Negative (Negative); Hyaline Casts,Urine 1 /lpf (0-2); Ketones,Urine Negative (Negative); Leukocyte Esterase,Urine Negative (Negative); Nitrite,Urine Negative (Negative); PH, Urine 5.5 (5.0-8.0); Protein,Urine Negative (Negative); RBC,Urine 3 /hpf (0-5); Specific Gravity,Urine 1.013 (1.001-1.035); Squamous Epithelial Cell,Urine <1 /hpf (0-4); Urobilinogen,Urine <2.0 mg/dL (<2.0); WBC,Urine 1 /hpf (0-5)
[2017-11-07 06:00] LABS: Glucose,Whole Blood 124 mg/dL (75-99)
[2017-11-07] MEDS: VANCOMYCIN 1,750 MG in SODIUM CHLORIDE 0.9% 500 ML IVPB SCH (06:32)
[2017-11-07] MEDS: PANTOPRAZOLE 40 MG TABLET PO SCH (06:32)
[2017-11-07 06:38] LABS: INR 3.1 (<1.2); Prothrombin Time 27.7 sec (9.0-12.0)
[2017-11-07] MEDS: INSULIN ASPART 100 UNIT/ML 1 ML 10 ML VIAL SQ SCH ×4 (06:47→21:30)
[2017-11-07] MEDS: METOPROLOL TARTRATE 50 MG TAB PO SCH ×2 (08:11→20:03)
[2017-11-07] MEDS: DIGOXIN 250 MCG TAB PO SCH (08:11)
[2017-11-07] MEDS: FUROSEMIDE 10 MG/ML 10 ML VIAL IV SCH ×2 (08:11→20:02)
[2017-11-07] MEDS: SPIRONOLACTONE 25 MG TAB PO SCH (08:11)
[2017-11-07] MEDS: LISINOPRIL 5 MG TAB PO SCH (08:11)
[2017-11-07] MEDS: predniSONE 20 MG TAB PO SCH (08:11)
[2017-11-07] MEDS: NICOTINE 21MG/24HR PATCH TRANSDERM SCH (08:12)
--- NOTE | 2017-11-07 08:13 | XR ---
EXAMINATION TYPE: XR chest 1V portable DATE OF EXAM: 11/07/2017 HISTORY: Shortness of breath. COMPARISON: 11/02/2017 TECHNIQUE: Single view of the chest is submitted. FINDINGS: Demonstrated are scattered senescent parenchymal change. There is no evidence for focal infiltrate. Blunting left costophrenic angle may reflect pleural thick ening or small effusion. The heart is stable. Hilar and mediastinal structures are within normal limits. Degenerative changes are seen of the dorsal spine. IMPRESSION: 1. Chronic changes without evidence for acute pulmonary disease.
[2017-11-07] MEDS: IPRATROPIUM 0.5 MG/2.5 ML NEBU INHALATION SCH ×4 (09:14→20:01)
[2017-11-07 09:54] LABS: Calcium 8.9 mg/dL (8.4-10.2); Potassium 4.1 mmol/L (3.5-5.1)
--- NOTE | 2017-11-07 10:14 | P.PN ---
Subjective Progress Note Date: 11/07/17 Principal diagnosis: Acute hypoxic respiratory failure secondary to combination of both systolic congestive heart failure and COPD exacerbation. 67-year-old female patient, known history of COPD, CHF and chronic atrial fibrillation addition to a previous history of left-sided stroke with expressive aphasia and right-sided weakness, presents to the hospital because of worsening shortness of breath. The patient continues to smoke cigarettes on a daily basis. Her breathing has been gradually getting worse over the past week or so. She comes into the MRSA problem because of worsening shortness of breath and she was found to be in atrial fibrillation with rapid ventricular response and a heart rate in the 140-150 range. The patient has been maintained on a combination of metoprolol for rate control and anticoagulation with Coumadin regarding her atrial fibrillation. She is also on Spiriva and Ventolin nebulized she was on Estrace basis regarding her COPD. She is known to have some mild degree of CHF and a chest x-ray on admission showed failure and is a little edema. The patient was given Lasix. The patient was started on a Cardizem drip. The INR is therapeutic at this point in time. Lactic acid level is at 3.2. White cell count is not elevated. Troponin first set is negative. ProBNP level is 1540. The patient is admitted to the hospital for this reason. Her latest echocardiogram from 05/01/2017 shows an ejection fraction of 45-50% consistent with mild LV impairment and the right ventricle is moderately enlarged and the patient has moderate mitral regurgitation and severe mitral stenosis and severe tricuspid regurgitation with a PA pressure of around 48. The patient was seen again today 11/03/2017 in follow-up on the selective care unit. She is currently awake and alert in no acute distress. She is maintaining O2 saturations up to 100% on 2 L/m per nasal cannula. She remains tachycardic in 120s in atrial fibrillation and remains on a Cardizem drip at 5 mg per hour. She is being gently diuresed with Lasix 20 milligrams IV every 12 hours. She is continued on treatment for her COPD exacerbation as well as cleaning IV Solu-Medrol, bronchodilators. On 11/04/2017, the patient is doing well. Less shortness of breath compared to yesterday. The patient is on Cardizem drip at 5 mg an hour. The patient is on Lasix 40 mg IV push every 12 hours. The patient is on Solu-Medrol which has been tapered down to 40 mg every 6 hours. The patient is also on long-term anticoagulation with warfarin and INR from 2 days ago was therapeutic. She is not having any new complaints to she is calm and comfortable. Overall pulmonary status improved and the patient is obviously less short of breath compared to yesterday. On 11/05/2017 patient seen in follow-up on selective care unit. She is resting comfortably in bed, she has expressive aphasia, her and her sister are at the bedside, and they both agree patient's breathing is improving, patient is less wheezy and dyspneic. Remains in atrial fibrillation, with a rate of 79 BPM. Room air pulse ox is 90%, on 2 L per nasal cannula she is 98%, remains afebrile, lung sounds are diminished, with some bibasilar crackles, no wheezing noted on today's exam. Patient is diuresing, currently on Lasix 40 mg every 12 hours. Continues on empiric antibiotics in the form of Rocephin, and nebulized treatments in addition to IV Solu-Medrol. The patient is seen again today 11/06/2017 in follow-up on the selective care unit. She is currently sitting up in bed. She is awake and alert in no acute distress. Maintaining good O2 saturations in the mid 90s on 2 L/m per nasal cannula. She's been afebrile. Rate is well controlled. White count 10.2. Hemoglobin 13.6. INR 3.8. Creatinine 1.00. She is currently on IV Lasix 80 mg every 12 hours. The patient was seen again today 11/07/2017 in follow-up on the selective care unit. She is resting quite comfortably in bed. Today's chest x-ray shows evidence of chronic changes but no acute pulmonary process. She continues to maintain good O2 saturations in the upper 90s on 2 L/m per nasal cannula. She is afebrile. ID is on the case regarding the enterococcus fascia. Repeat blood cultures are pending. Urine culture is pending. Computed tomography scan of the abdomen and pelvis have been ordered and if negative will be requiring a BERNARDO. She remains on vancomycin. She remains on IV diuretics. She is down 2 kg. Creatinine 1.09. INR 3.1. Objective - Vital Signs Vital signs: Vital Signs Temp 96.7 F L 11/07/17 04:00 Pulse 81 11/07/17 09:25 Resp 16 11/07/17 08:00 BP 106/62 11/07/17 08:00 Pulse Ox 97 11/07/17 08:00 Intake & Output 11/06/17 11/07/17 11/07/17 18:59 06:59 18:59 Intake Total 720 720 240 Balance 720 720 240 Weight 103.5 kg Intake: Oral 720 720 240 Other: Voiding Method Bedside Commode Bedside Commode # Voids 1 5 1 # Bowel Movements 0 - Exam Gen. appearance the patient is a mild degree of respiratory distress even at rest. The patient has some facial asymmetry related to previous CVA. She is not using accessory muscles of breathing. Head exam was generally normal. There was no scleral icterus or corneal arcus. Mucous membranes were moist. Neck was supple and without jugular venous distension, thyromegaly, or carotid bruits. Carotids were easily palpable bilaterally. There was no adenopathy. Lungs sounds are diminished bilaterally. Heart sounds are irregular, positive S1-S2 and there is a faint systolic ejection murmur grade 2/6 heard throughout the precordium. Abdominal exam revealed normal bowel sounds. The abdomen was soft, non-tender, and without masses, organomegaly, or appreciable enlargement of the abdominal aorta. Examination of the extremities revealed easily palpable radial, femoral and pedal pulses. There was no cyanosis, clubbing and the patient has +1-2 pitting edema in lower extremities bilaterally. Neurologically the patient is awake. The patient is aphasic. She has chronic hemiplegia on the right side with right-sided spasticity and weakness. Facial asymmetry is present. There is expressive aphasia. - Labs CBC & Chem 7: 11/06/17 05:51 11/07/17 06:13 Labs: Abnormal Lab Results - Last 24 Hours (Table) 11/06/17 11/06/17 11/06/17 Range/Units 11:27 16:43 20:31 PT (9.0-12.0) sec INR (<1.2) Carbon Dioxide (22-30) mmol/L BUN (7-17) mg/dL Creatinine (0.52-1.04) mg/dL Glucose (74-99) mg/dL POC Glucose (mg/dL) 124 H 294 H (75-99) mg/dL Urine Blood Trace H (Negative) 11/06/17 11/07/17 11/07/17 Range/Units 20:45 05:59 06:13 PT 27.7 H (9.0-12.0) sec INR 3.1 H (<1.2) Carbon Dioxide (22-30) mmol/L BUN (7-17) mg/dL Creatinine (0.52-1.04) mg/dL Glucose (74-99) mg/dL POC Glucose (mg/dL) 238 H 124 H (75-99) mg/dL Urine Blood (Negative) 11/07/17 Range/Units 06:13 PT (9.0-12.0) sec INR (<1.2) Carbon Dioxide 32 H (22-30) mmol/L BUN 50 H (7-17) mg/dL Creatinine 1.09 H (0.52-1.04) mg/dL Glucose 120 H (74-99) mg/dL POC Glucose (mg/dL) (75-99) mg/dL Urine Blood (Negative) Microbiology - Last 24 Hours (Table) 11/06/17 20:31 Urine Culture - Preliminary Urine,Voided 11/05/17 13:25 Blood Culture - Preliminary Blood No Growth after 24 hours 11/05/17 13:29 Blood Culture - Preliminary Blood No Growth after 24 hours Assessment and Plan Assessment: Assessment 1 acute hypoxic respiratory failure secondary to a combination of acute exacerbation of systolic congestive heart failure and exacerbation and COPD 2 chronic atrial fibrillation, rapid ventricular response at a time of admission. 3 CHF mild systolic dysfunction and the patient went into acute CHF at a time of admission because of A. fib/RVR. Note that the patient has valvular heart disease with moderate mitral regurgitation and severe mitral stenosis which probably exacerbated atrial fibrillation and CHF in addition. 4 COPD with secondary exacerbation 5 history of CVA with right-sided hemiplegia and expressive aphasia. The patient is essentially bedridden 6 smoking 7 hypertension 8 hyperlipidemia 9 valvular heart disease, in the form of moderate mitral regurgitation and severe mitral stenosis with secondary pulmonary hypertension and the patient is also mild impairment of the LV function 10 mild lactic acidosis, sepsis ruled out. Plan: The patient is seen and evaluated by Dr. Delcid. Chest x-ray and labs reviewed. No acute pulmonary process. ID is on the case and has ordered a computed tomography scan of the abdomen and pelvis looking for a source of the bacteremia. If that is negative the plan is for possible BERNARDO. In the interim we'll continue with her current pulmonary medications. She is again educated regarding importance of complete smoking cessation. NicoDerm patch is in place. She remains on Lasix now at 80 mg IV every 12 hours. We'll continue to follow. I, the cosigning physician, performed a history & physical examination of the patient. Lungs sounds with few scattered rhonchi. Diminished. Maintaining good O2 saturations in the 90s on 2 L/m per nasal cannula. I discussed the assessment and plan of care with my nurse practitioner, Vicki Guerrero. I attest to the above note as dictated by her.
[2017-11-07 11:46] LABS: Glucose,Whole Blood 173 mg/dL (75-99)
[2017-11-07] MEDS: IOPAMIDOL-300 CONTRAST 30 ML VIAL (ORAL USE) PO PRN ×2 (12:47→13:53)
--- NOTE | 2017-11-07 14:27 | P.PN ---
Subjective 67-year-old female with a known history of CHF with systolic dysfunction ejection fraction 45-50% on 05/01/2017, chronic atrial fibrillation on anticoagulation with Coumadin, COPD, 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 Patient was also found have atrial fibrillation with rapid ventricular rate while ER and was started on Cardizem drip. Patient denied any complaints of chest pain. No nausea vomiting or abdominal pain. Patient was having cough and not able to bring out any sputum. No headache or dizziness or lightheadedness. Patient does have bilateral lower extremities swelling. Chest x-ray showedredemonstration of very mild interstitial edema and marked cardiomegaly, congestive heart failure. Patient was started on IV steroids and breathing treatments and Lasix IV. Last echocardiogram done on 05/01/2017 showed ejection fraction 45-50%, moderately enlarged RV, severely dilated LA, severely thickened mitral valve leaflets, moderate MR. Severe mitral stenosis severe tricuspid regurgitation, and moderate pulmonary hypertension with RVSP 46.68 mmhg. BNP 1540 INR 2.6 and lactic acid 3.2 EKG showed atrial fibrillation with a rapid ventricular rate. 11/03/2017 Patient's breathing status is slightly improved. Otherwise still having lower extremities swelling. Continued on IV steroids. Dose increased to 40 mg every 8 hourly. Lasix will be continued intravenously. No complaints of chest pain or worsening shortof breath. No nausea vomiting or abdominal pain. No diarrhea. Otherwise patient does have expressive dysphagia from previous CVA Discussed with her daughter at bedside in detail. 11/04/2017 Patient's breathing status is improving. Still having lower extremities swelling and bibasilar crackles. Patient is being continued on IV Lasix. Otherwise no acute overnight issues. Pulmonary and cardiology is following. 11/05/2017 Patient is feeling better but her blood cultures are positive for enterococcus CCM which is resistant to penicillins sensitive to vancomycin patient was started on vancomycin repeat blood cultures today and tomorrow will be obtained infectious disease will be consulted. 11/06/2017 Patient can use to be on vancomycin overnight events patient is feeling well. Denied any abdominal pain at this time. Awaiting repeat blood cultures. 11/07/2017 Patient repeat blood cultures are so far negative, because of enterococcal bacteremia infectious disease is recommending abdominal CAT scan. Constitutional: Denied any fatigue denied any fever. Cardio vascular: denied any chest pain, palpitations Gastrointestinal denied any nausea vomiting Pulmonary: Denied any shortness of breath cough Neurologic denied any new focal deficits Objective - Vital Signs Vital signs: Vital Signs Temp 96.7 F L 11/07/17 04:00 Pulse 82 11/07/17 13:36 Resp 16 11/07/17 12:00 BP 90/56 11/07/17 12:00 Pulse Ox 96 11/07/17 12:00 Intake & Output 11/06/17 11/07/17 11/07/17 18:59 06:59 18:59 Intake Total 720 720 480 Balance 720 720 480 Weight 103.5 kg Intake: Oral 720 720 480 Other: Voiding Method Bedside Commode Bedside Commode Bedside Commode # Voids 1 5 2 # Bowel Movements 0 1 - Exam PHYSICAL EXAMINATION: GENERAL: The patient is alert and oriented x3, not in any acute distress. Well developed, well nourished. HEENT: Pupils are round and equally reacting to light. EOMI. No scleral icterus. No conjunctival pallor. Normocephalic, atraumatic. No pharyngeal erythema. No thyromegaly. CARDIOVASCULAR: S1 and S2 present. No murmurs, rubs, or gallops. PULMONARY: Chest is clear to auscultation, no wheezing or crackles. ABDOMEN: Soft, nontender, nondistended, normoactive bowel sounds. No palpable organomegaly. MUSCULOSKELETAL: No joint swelling or deformity. EXTREMITIES: No clubbing, bilateral pedal edema right more than left patient does have some cyanosis in the right lower extremity NEUROLOGICAL: Gross neurological examination did not reveal any focal deficits. SKIN: No rashes. - Labs CBC & Chem 7: 11/06/17 05:51 11/07/17 06:13 Labs: Abnormal Lab Results - Last 24 Hours (Table) 11/06/17 11/06/17 11/06/17 Range/Units 16:43 20:31 20:45 PT (9.0-12.0) sec INR (<1.2) Carbon Dioxide (22-30) mmol/L BUN (7-17) mg/dL Creatinine (0.52-1.04) mg/dL Glucose (74-99) mg/dL POC Glucose (mg/dL) 294 H 238 H (75-99) mg/dL Urine Blood Trace H (Negative) 11/07/17 11/07/17 11/07/17 Range/Units 05:59 06:13 06:13 PT 27.7 H (9.0-12.0) sec INR 3.1 H (<1.2) Carbon Dioxide 32 H (22-30) mmol/L BUN 50 H (7-17) mg/dL Creatinine 1.09 H (0.52-1.04) mg/dL Glucose 120 H (74-99) mg/dL POC Glucose (mg/dL) 124 H (75-99) mg/dL Urine Blood (Negative) 11/07/17 Range/Units 11:32 PT (9.0-12.0) sec INR (<1.2) Carbon Dioxide (22-30) mmol/L BUN (7-17) mg/dL Creatinine (0.52-1.04) mg/dL Glucose (74-99) mg/dL POC Glucose (mg/dL) 173 H (75-99) mg/dL Urine Blood (Negative) Microbiology - Last 24 Hours (Table) 11/06/17 20:31 Urine Culture - Preliminary Urine,Voided 11/05/17 13:25 Blood Culture - Preliminary Blood No Growth after 24 hours 11/05/17 13:29 Blood Culture - Preliminary Blood No Growth after 24 hours Assessment and Plan Plan: Acute hypoxic respiratory failure with pulse ox 88% on admission. Multifactorial due to CHF and COPD. Acute COPD exacerbation Acute on chronic CHF with systolic dysfunction is expected 45-50% and 1 with valvular heart disease Atrial fibrillation presently rate controlled patient is on digoxin Bacteremia with enterococcus as mentioned above patient is on IV vancomycin source unclear, abdominal CAT scan Valvular heart disease with severe TR and MR and Moderate pulmonary hypertension with RVSP 46.68 mmhg. Chronic atrial fibrillation on anticoagulation witb Coumadin. Therapeutic on Coumadin history of CVA with right-sided hemiplegia and difficulty speech Lactic acidosis due to dehydration and volume depletion on admission. Resolved Hypertension Hyperlipidemia Osteoarthritis GERD Currently everyday smoker
--- NOTE | 2017-11-07 15:20 | CT ---
EXAMINATION TYPE: CT abdomen pelvis wo con DATE OF EXAM: 11/07/2017 COMPARISON: Prior CT 05/01/2017 HISTORY: Abdominal pain and Bacteremia CT DLP: 1110 mGycm Automated exposure control for dose reduction was used. TECHNIQUE: Helical acquisition of images from the lung bases through the pelvis. Patient received or al contrast only. FINDINGS: Heart is enlarged. There are coronary calcifications. Small amount of pericardial fluid is present. Lack of contrast may compromise sensitivity. LUNG BASES: Small right pleural effusion, there is bibasilar atelectatic change.. AORTA: No significant abnormality is appreciataed. LIVER/GB: Liver shows low attenuation and is enlarged.. PANCREAS: No significant abnormality is seen. SPLEEN: Spleen shows heterogeneous density the some of which may be artifactual. ADRENALS: Stable left adrenal nodule is low dense and may represent adenoma, smaller right adrenal no dule may also be present possibly representing adenoma and stable KIDNEYS: Similar to prior exam. Some focal scarring, cortical thinning present in the posterior aspec t of the right kidney is associated calcifications, there is asymmetric cyst anteriorly in the lower pole the right kidney. No definite hydronephrosis or ureteral calcification bilaterally. High dense f ocus present in the anterior aspect of the right kidney measures 7-8 mm, additional lesions are small er and increased in attenuation. REPRODUCTIVE ORGANS: No bulky thyroid compatible with underlying fibroids again seen. There is a lar ge ovarian vein bilaterally. URINARY BLADDER: No significant abnormality is seen. BOWEL: No significant abnormality is seen. Appendix is normal. FREE AIR: No Free Air is visible. ASCITES: None visible. PELVIC ADENOPATHY: None visualized. RETROPERITONEAL ADENOPATHY: No Retroperitoneal Adenopathy visible. OSSEOUS STRUCTURES: No significant abnormality is seen. IMPRESSION: NONCONTRAST EXAM MAY LIMIT SENSITIVITY. HETEROGENEOUS APPEARANCE OF THE SPLEEN MAY BE AT LEAST IN PAR T ARTIFACTUAL, FINDINGS INDETERMINATE. PROBABLE ADRENAL ADENOMAS. CONSIDER HEPATIC STEATOSIS. HEPATIC MEGALY. Indeterminate right kidney foci may represent proteinaceous cysts. Stable cardiomegaly, nino nary artery disease. Small pleural effusions, basilar atelectasis. Fibroid uterus.
--- NOTE | 2017-11-07 15:21 | P.PN ---
Subjective Progress Note Date: 11/07/17 This is a pleasant 67-year-old female patient with past history significant for chronic atrial fibrillation, on oral antral anticoagulation with Coumadin as well as history of CVA causing right-sided weakness as well as slurred speech and a history of chronic obstructive pulmonary disease on oxygen at home. She presented to the hospital with complaints of shortness of breath. Patient does have communication problems and therefore only answers yes or no. She presented to the emergency department with worsening dyspnea. No complaints of chest discomfort no dizziness or lightheadedness and no palpitations. Patient was diagnosed with COPD exacerbation as well as CHF exacerbation. The EKG also showed atrial fibrillation with rapid ventricular response. NT proBNP was elevated. CBC and BMP came in to be a within normal limits. Echocardiogram from April 2017 revealed mild cardiomyopathy with an ejection fraction of around 45%. She remains off Cardizem drip and heart rate is currently controlled with digoxin 250 g by mouth daily and metoprolol tartrate 50 mg by mouth twice a day. Her Lasix was increased to 80 mg IV push twice a day. Chest x-ray today showed chronic changes without evidence for acute pulmonary disease. Her renal function remains relatively stable with a BUN of 50 and creatinine of 1.09. INR this morning was 3.1. Upon examination, patient denies complaints of shortness of breath, chest discomfort, or palpitations. Objective - Vital Signs Vital signs: Vital Signs Temp 96.7 F L 11/07/17 04:00 Pulse 81 11/07/17 09:25 Resp 16 11/07/17 11:30 BP 106/62 11/07/17 08:00 Pulse Ox 97 11/07/17 08:00 Intake & Output 11/06/17 11/07/17 11/07/17 18:59 06:59 18:59 Intake Total 720 720 240 Balance 720 720 240 Weight 103.5 kg Intake: Oral 720 720 240 Other: Voiding Method Bedside Commode Bedside Commode Bedside Commode # Voids 1 5 1 # Bowel Movements 0 - Exam PHYSICAL EXAMINATION: HEENT: Head is atraumatic, normocephalic. Pupils equal, round. Neck is supple. There is no elevated jugular venous pressure. HEART EXAMINATION: Heart sounds irregularly irregular, S1 and S2 normal. No murmur or gallop heard. CHEST EXAMINATION: Lungs are clear. No chest wall tenderness is noted on palpation or with deep breathing. ABDOMEN: Soft, nontender. Bowel sounds are heard. No organomegaly noted. EXTREMITIES: 2+ peripheral pulses with evidence of trace peripheral edema and no calf tenderness noted. NEUROLOGIC patient is awake, alert and oriented. . - Labs CBC & Chem 7: 11/06/17 05:51 11/07/17 06:13 Labs: Abnormal Lab Results - Last 24 Hours (Table) 11/06/17 11/06/17 11/06/17 Range/Units 16:43 20:31 20:45 PT (9.0-12.0) sec INR (<1.2) Carbon Dioxide (22-30) mmol/L BUN (7-17) mg/dL Creatinine (0.52-1.04) mg/dL Glucose (74-99) mg/dL POC Glucose (mg/dL) 294 H 238 H (75-99) mg/dL Urine Blood Trace H (Negative) 11/07/17 11/07/17 11/07/17 Range/Units 05:59 06:13 06:13 PT 27.7 H (9.0-12.0) sec INR 3.1 H (<1.2) Carbon Dioxide 32 H (22-30) mmol/L BUN 50 H (7-17) mg/dL Creatinine 1.09 H (0.52-1.04) mg/dL Glucose 120 H (74-99) mg/dL POC Glucose (mg/dL) 124 H (75-99) mg/dL Urine Blood (Negative) 11/07/17 Range/Units 11:32 PT (9.0-12.0) sec INR (<1.2) Carbon Dioxide (22-30) mmol/L BUN (7-17) mg/dL Creatinine (0.52-1.04) mg/dL Glucose (74-99) mg/dL POC Glucose (mg/dL) 173 H (75-99) mg/dL Urine Blood (Negative) Microbiology - Last 24 Hours (Table) 11/06/17 20:31 Urine Culture - Preliminary Urine,Voided 11/05/17 13:25 Blood Culture - Preliminary Blood No Growth after 24 hours 11/05/17 13:29 Blood Culture - Preliminary Blood No Growth after 24 hours Assessment and Plan Assessment: #1 acute hypoxic respiratory failure #2 acute on chronic systolic congestive heart failure. #3 atrial fibrillation with RVR. #4 known chronic atrial fibrillation on oral anticoagulation was #5 mild cardiomyopathy with an ejection fraction of 45%. Plan: From cardiology's perspective, will continue current dose of IV Lasix. We will obtain a CBC and BMP in the morning. Continue to follow renal function, electrolytes, daily weights and intake and output. Further recommendations to follow. [facility] REPORTER note has been reviewed, I agree with a documented findings and plan of care. Patient was seen and examined.
[2017-11-07 16:39] LABS: Glucose,Whole Blood 135 mg/dL (75-99)
[2017-11-07] MEDS: WARFARIN 3 MG TAB PO SCH (20:03)
[2017-11-07 21:25] LABS: Glucose,Whole Blood 248 mg/dL (75-99)
--- NOTE | 2017-11-07 23:03 | PN ---
PROGRESS NOTE DATE OF SERVICE: 11/07/2017 REASON FOR FOLLOWUP: Enterococcus faecium bacteremia. INTERVAL HISTORY: The patient is afebrile. She was seen on rounds this morning. She has been more awake, alert. No chest pain, shortness of breath or cough. No abdominal pain or any diarrhea. PHYSICAL EXAMINATION: Blood pressure 102/63 with a pulse of 117, temperature 98. She is 98% on 2 L nasal cannula. General description is an elderly female lying in bed in no distress. RESPIRATORY SYSTEM: Unlabored breathing with decreased breath sounds in the bases. No wheeze. HEART: S1, S2. Regular rate and rhythm. ABDOMEN: Soft. No tenderness. EXTREMITIES: No edema of the feet. LABS: BUN 50, creatinine 1.09. Blood culture repeat has been negative. CT of abdomen and pelvis did not show any significant inflammation. DIAGNOSTIC IMPRESSION AND PLAN: Patient with Enterococcus faecium bacteremia, currently with no clear focus urinary or abdominal source. Clinically doubt endovascular source, since the blood culture has been negative very quickly. She is currently on vancomycin. That can be transitioned to oral Zyvox 600 mg p.o. twice a day for another 10 days with close outpatient followup. MMODL / IJN: [id number] /
[2017-11-08] MEDS ORDERED: VANCOMYCIN TROUGH DUE 1 EACH MISC MISCELLANE ONE (05:00)
[2017-11-08] MEDS ORDERED: VANCOMYCIN 1,750 MG in SODIUM CHLORIDE 0.9% 500 ML IVPB SCH (06:00)
[2017-11-08 06:03] LABS: INR 2.2 (<1.2); Prothrombin Time 19.7 sec (9.0-12.0)
[2017-11-08 06:28] LABS: Glucose,Whole Blood 79 mg/dL (75-99)
[2017-11-08] MEDS: INSULIN ASPART 100 UNIT/ML 1 ML 10 ML VIAL SQ SCH ×4 (06:29→21:46)
[2017-11-08] MEDS: PANTOPRAZOLE 40 MG TABLET PO SCH (06:36)
[2017-11-08] MEDS: IPRATROPIUM 0.5 MG/2.5 ML NEBU INHALATION SCH ×4 (07:27→19:34)
[2017-11-08] MEDS: FUROSEMIDE 10 MG/ML 10 ML VIAL IV SCH ×2 (09:11→21:08)
[2017-11-08] MEDS: predniSONE 20 MG TAB PO SCH (09:11)
[2017-11-08] MEDS: SPIRONOLACTONE 25 MG TAB PO SCH (09:11)
[2017-11-08] MEDS: DIGOXIN 250 MCG TAB PO SCH (09:11)
[2017-11-08] MEDS: NICOTINE 21MG/24HR PATCH TRANSDERM SCH ×2 (09:11→09:14)
[2017-11-08] MEDS: LISINOPRIL 5 MG TAB PO SCH (09:11)
[2017-11-08] MEDS: METOPROLOL TARTRATE 50 MG TAB PO SCH ×2 (09:11→21:08)
[2017-11-08 10:45] LABS: Calcium 8.6 mg/dL (8.4-10.2); Potassium 3.8 mmol/L (3.5-5.1)
--- NOTE | 2017-11-08 10:49 | P.PN ---
Subjective Progress Note Date: 11/08/17 Principal diagnosis: Acute hypoxic respiratory failure secondary to combination of both systolic congestive heart failure and COPD exacerbation. 67-year-old female patient, known history of COPD, CHF and chronic atrial fibrillation addition to a previous history of left-sided stroke with expressive aphasia and right-sided weakness, presents to the hospital because of worsening shortness of breath. The patient continues to smoke cigarettes on a daily basis. Her breathing has been gradually getting worse over the past week or so. She comes into the MRSA problem because of worsening shortness of breath and she was found to be in atrial fibrillation with rapid ventricular response and a heart rate in the 140-150 range. The patient has been maintained on a combination of metoprolol for rate control and anticoagulation with Coumadin regarding her atrial fibrillation. She is also on Spiriva and Ventolin nebulized she was on Estrace basis regarding her COPD. She is known to have some mild degree of CHF and a chest x-ray on admission showed failure and is a little edema. The patient was given Lasix. The patient was started on a Cardizem drip. The INR is therapeutic at this point in time. Lactic acid level is at 3.2. White cell count is not elevated. Troponin first set is negative. ProBNP level is 1540. The patient is admitted to the hospital for this reason. Her latest echocardiogram from 05/01/2017 shows an ejection fraction of 45-50% consistent with mild LV impairment and the right ventricle is moderately enlarged and the patient has moderate mitral regurgitation and severe mitral stenosis and severe tricuspid regurgitation with a PA pressure of around 48. The patient was seen again today 11/03/2017 in follow-up on the selective care unit. She is currently awake and alert in no acute distress. She is maintaining O2 saturations up to 100% on 2 L/m per nasal cannula. She remains tachycardic in 120s in atrial fibrillation and remains on a Cardizem drip at 5 mg per hour. She is being gently diuresed with Lasix 20 milligrams IV every 12 hours. She is continued on treatment for her COPD exacerbation as well as cleaning IV Solu-Medrol, bronchodilators. On 11/04/2017, the patient is doing well. Less shortness of breath compared to yesterday. The patient is on Cardizem drip at 5 mg an hour. The patient is on Lasix 40 mg IV push every 12 hours. The patient is on Solu-Medrol which has been tapered down to 40 mg every 6 hours. The patient is also on long-term anticoagulation with warfarin and INR from 2 days ago was therapeutic. She is not having any new complaints to she is calm and comfortable. Overall pulmonary status improved and the patient is obviously less short of breath compared to yesterday. On 11/05/2017 patient seen in follow-up on selective care unit. She is resting comfortably in bed, she has expressive aphasia, her and her sister are at the bedside, and they both agree patient's breathing is improving, patient is less wheezy and dyspneic. Remains in atrial fibrillation, with a rate of 79 BPM. Room air pulse ox is 90%, on 2 L per nasal cannula she is 98%, remains afebrile, lung sounds are diminished, with some bibasilar crackles, no wheezing noted on today's exam. Patient is diuresing, currently on Lasix 40 mg every 12 hours. Continues on empiric antibiotics in the form of Rocephin, and nebulized treatments in addition to IV Solu-Medrol. The patient is seen again today 11/06/2017 in follow-up on the selective care unit. She is currently sitting up in bed. She is awake and alert in no acute distress. Maintaining good O2 saturations in the mid 90s on 2 L/m per nasal cannula. She's been afebrile. Rate is well controlled. White count 10.2. Hemoglobin 13.6. INR 3.8. Creatinine 1.00. She is currently on IV Lasix 80 mg every 12 hours. The patient was seen again today 11/07/2017 in follow-up on the selective care unit. She is resting quite comfortably in bed. Today's chest x-ray shows evidence of chronic changes but no acute pulmonary process. She continues to maintain good O2 saturations in the upper 90s on 2 L/m per nasal cannula. She is afebrile. ID is on the case regarding the enterococcus fascia. Repeat blood cultures are pending. Urine culture is pending. Computed tomography scan of the abdomen and pelvis have been ordered and if negative will be requiring a BERNARDO. She remains on vancomycin. She remains on IV diuretics. She is down 2 kg. Creatinine 1.09. INR 3.1. The patient is seen again today 11/08/2017 in follow-up on the selective care unit. She is currently sitting up in a chair at the bedside. She is awake and alert in no acute distress. She denies any worsening shortness of breath. She continues with a loose nonproductive cough. She is afebrile. Maintaining O2 saturations in the upper 90s on 2 L/m per nasal cannula. She remains in atrial fibrillation with controlled ventricular response currently. INR 2.2. She is on Lasix 80 mg every 12 hours. Objective - Vital Signs Vital signs: Vital Signs Temp 98 F 11/07/17 20:00 Pulse 80 11/08/17 07:35 Resp 18 11/08/17 04:00 BP 102/66 11/08/17 04:00 Pulse Ox 99 11/08/17 07:28 Intake & Output 11/07/17 11/08/17 11/08/17 18:59 06:59 18:59 Intake Total 480 Balance 480 Weight 95.6 kg Intake: Oral 480 Other: Voiding Method Bedside Commode Bedside Commode # Voids 2 2 # Bowel Movements 1 - Exam Gen. appearance the patient is a mild degree of respiratory distress even at rest. The patient has some facial asymmetry related to previous CVA. She is not using accessory muscles of breathing. Head exam was generally normal. There was no scleral icterus or corneal arcus. Mucous membranes were moist. Neck was supple and without jugular venous distension, thyromegaly, or carotid bruits. Carotids were easily palpable bilaterally. There was no adenopathy. Lungs sounds are diminished bilaterally. Heart sounds are irregular, positive S1-S2 and there is a faint systolic ejection murmur grade 2/6 heard throughout the precordium. Abdominal exam revealed normal bowel sounds. The abdomen was soft, non-tender, and without masses, organomegaly, or appreciable enlargement of the abdominal aorta. Examination of the extremities revealed easily palpable radial, femoral and pedal pulses. There was no cyanosis, clubbing and the patient has +1-2 pitting edema in lower extremities bilaterally. Neurologically the patient is awake. The patient is aphasic. She has chronic hemiplegia on the right side with right-sided spasticity and weakness. Facial asymmetry is present. There is expressive aphasia. - Labs CBC & Chem 7: 11/06/17 05:51 11/07/17 06:13 Labs: Abnormal Lab Results - Last 24 Hours (Table) 11/07/17 11/07/17 11/07/17 Range/Units 11:32 16:29 21:10 PT (9.0-12.0) sec INR (<1.2) POC Glucose (mg/dL) 173 H 135 H 248 H (75-99) mg/dL 11/08/17 Range/Units 05:29 PT 19.7 H (9.0-12.0) sec INR 2.2 H (<1.2) POC Glucose (mg/dL) (75-99) mg/dL Microbiology - Last 24 Hours (Table) 11/06/17 20:31 Urine Culture - Final Urine,Voided 11/05/17 13:25 Blood Culture - Preliminary Blood No Growth after 48 hours 11/05/17 13:29 Blood Culture - Preliminary Blood No Growth after 48 hours 11/06/17 12:23 Blood Culture - Preliminary Blood No Growth after 24 hours Assessment and Plan Assessment: Assessment 1 acute hypoxic respiratory failure secondary to a combination of acute exacerbation of systolic congestive heart failure and exacerbation and COPD improved. 2 chronic atrial fibrillation, rapid ventricular response at a time of admission. 3 CHF mild systolic dysfunction and the patient went into acute CHF at a time of admission because of A. fib/RVR. Note that the patient has valvular heart disease with moderate mitral regurgitation and severe mitral stenosis which probably exacerbated atrial fibrillation and CHF in addition. 4 COPD with secondary exacerbation 5 history of CVA with right-sided hemiplegia and expressive aphasia. The patient is essentially bedridden 6 smoking 7 hypertension 8 hyperlipidemia 9 valvular heart disease, in the form of moderate mitral regurgitation and severe mitral stenosis with secondary pulmonary hypertension and the patient is also mild impairment of the LV function 10 mild lactic acidosis, sepsis ruled out. Plan: The patient is seen and evaluated by Dr. Delcid. We'll continue with her current pulmonary medications. She is again educated regarding importance of complete smoking cessation. NicoDerm patch is in place. She remains on Lasix now at 80 mg IV every 12 hours. Vancomycin will be transitioned to Zyvox per ID. We'll continue to follow. I, the cosigning physician, performed a history & physical examination of the patient. Lungs sounds with few scattered rhonchi. Diminished. Maintaining good O2 saturations in the 90s on 2 L/m per nasal cannula. I discussed the assessment and plan of care with my nurse practitioner, Vicki Guerrero. I attest to the above note as dictated by her.
[2017-11-08 11:32] LABS: Glucose,Whole Blood 128 mg/dL (75-99)
--- NOTE | 2017-11-08 13:24 | P.PN ---
Subjective Progress Note Date: 11/08/17 This is a pleasant 67-year-old female patient with past history significant for chronic atrial fibrillation, on oral antral anticoagulation with Coumadin as well as history of CVA causing right-sided weakness as well as slurred speech and a history of chronic obstructive pulmonary disease on oxygen at home. She presented to the hospital with complaints of shortness of breath. Patient does have communication problems and therefore only answers yes or no. She presented to the emergency department with worsening dyspnea. No complaints of chest discomfort no dizziness or lightheadedness and no palpitations. Patient was diagnosed with COPD exacerbation as well as CHF exacerbation. The EKG also showed atrial fibrillation with rapid ventricular response. NT proBNP was elevated. CBC and BMP came in to be a within normal limits. Echocardiogram from April 2017 revealed mild cardiomyopathy with an ejection fraction of around 45%. She remains off Cardizem drip and heart rate is currently controlled with digoxin 250 g by mouth daily and metoprolol tartrate 50 mg by mouth twice a day. Her Lasix continues at 80 mg IV push twice a day. Chest x-ray today showed chronic changes without evidence for acute pulmonary disease. Her renal function remains relatively stable with a BUN of 44 and creatinine of 0.9. INR this morning was 2.2. Upon examination, patient denies complaints of shortness of breath, chest discomfort, or palpitations. Objective - Vital Signs Vital signs: Vital Signs Temp 96.8 F L 11/08/17 08:00 Pulse 77 11/08/17 08:00 Resp 20 11/08/17 08:00 BP 97/54 11/08/17 08:00 Pulse Ox 97 11/08/17 08:00 Intake & Output 11/07/17 11/08/17 11/08/17 18:59 06:59 18:59 Intake Total 480 Balance 480 Weight 95.6 kg Intake: Oral 480 Other: Voiding Method Bedside Commode Bedside Commode # Voids 2 2 # Bowel Movements 1 - Exam PHYSICAL EXAMINATION: HEENT: Head is atraumatic, normocephalic. Pupils equal, round. Neck is supple. There is no elevated jugular venous pressure. HEART EXAMINATION: Heart sounds irregularly irregular, S1 and S2 normal. No murmur or gallop heard. CHEST EXAMINATION: Lungs are clear. No chest wall tenderness is noted on palpation or with deep breathing. ABDOMEN: Soft, nontender. Bowel sounds are heard. No organomegaly noted. EXTREMITIES: diminished peripheral pulses with evidence of trace peripheral edema and no calf tenderness noted. NEUROLOGIC patient is awake, alert and oriented. Able to answer yes and no. . - Labs CBC & Chem 7: 11/06/17 05:51 11/08/17 05:29 Labs: Abnormal Lab Results - Last 24 Hours (Table) 11/07/17 11/07/17 11/07/17 Range/Units 11:32 16:29 21:10 PT (9.0-12.0) sec INR (<1.2) Chloride (98-107) mmol/L Carbon Dioxide (22-30) mmol/L BUN (7-17) mg/dL POC Glucose (mg/dL) 173 H 135 H 248 H (75-99) mg/dL 11/08/17 11/08/17 Range/Units 05:29 05:29 PT 19.7 H (9.0-12.0) sec INR 2.2 H (<1.2) Chloride 94 L (98-107) mmol/L Carbon Dioxide 39 H (22-30) mmol/L BUN 44 H (7-17) mg/dL POC Glucose (mg/dL) (75-99) mg/dL Microbiology - Last 24 Hours (Table) 11/06/17 20:31 Urine Culture - Final Urine,Voided 11/05/17 13:25 Blood Culture - Preliminary Blood No Growth after 48 hours 11/05/17 13:29 Blood Culture - Preliminary Blood No Growth after 48 hours 11/06/17 12:23 Blood Culture - Preliminary Blood No Growth after 24 hours Assessment and Plan Assessment: #1 acute hypoxic respiratory failure #2 acute on chronic systolic congestive heart failure. #3 atrial fibrillation with RVR. #4 known chronic atrial fibrillation on oral anticoagulation was #5 mild cardiomyopathy with an ejection fraction of 45%. Plan: From cardiology's perspective, will continue current dose of IV Lasix. We will obtain a BMP in the morning. Continue to follow renal function, electrolytes, daily weights and intake and output. Further recommendations to follow. SHAKER OPERATOR note has been reviewed, I agree with a documented findings and plan of care. Patient was seen and examined.
[2017-11-08 17:03] LABS: Glucose,Whole Blood 237 mg/dL (75-99)
--- NOTE | 2017-11-08 20:58 | PN ---
PROGRESS NOTE DATE OF SERVICE: 11/07/2017 REASON FOR FOLLOWUP: Enterococcus faecium bacteremia. INTERVAL HISTORY: The patient is afebrile. She was noticed to be slightly weak and lethargic this morning. Per her , she has been up all night watching TV. No nausea or vomiting has been noticed or any diarrhea per the nursing staff. PHYSICAL EXAMINATION: Blood pressure 100/54 with a pulse of 79, temperature 97.8. She is 91% on room air. General description is an elderly female lying in bed in no distress. RESPIRATORY SYSTEM: Unlabored breathing. Clear to auscultation anteriorly. HEART: S1, S2. Regular rate and rhythm. ABDOMEN: Soft. No tenderness. LABS: BUN of 44, creatinine 0.90. Vancomycin level 13.9. Blood culture repeat has been negative. DIAGNOSTIC IMPRESSION AND PLAN: Patient with Enterococcus faecium bacteremia, source possibly abdominal or urinary, though the UA done subsequently has been negative. CT of abdomen and pelvis was negative as well. Patient's blood culture became negative very quickly, making this to be less likely endovascular source. Currently on vancomycin with a plan to finish therapy with Zyvox 600 p.o. twice a day to finish a total of 2-week course of therapy from one negative blood culture. present at bedside. Questions were answered. MMODL / IJN: [id number] /
[2017-11-08] MEDS: WARFARIN 3 MG TAB PO SCH (21:08)
[2017-11-08 21:22] LABS: Glucose,Whole Blood 266 mg/dL (75-99)
[2017-11-09] MEDS: VANCOMYCIN 2,000 MG in SODIUM CHLORIDE 0.9% 500 ML IVPB SCH (05:59)
[2017-11-09 06:00] LABS: Glucose,Whole Blood 82 mg/dL (75-99)
[2017-11-09] MEDS: INSULIN ASPART 100 UNIT/ML 1 ML 10 ML VIAL SQ SCH ×4 (06:19→20:46)
[2017-11-09] MEDS: PANTOPRAZOLE 40 MG TABLET PO SCH (06:19)
[2017-11-09 06:26] LABS: INR 1.9 (<1.2); Prothrombin Time 17.2 sec (9.0-12.0)
[2017-11-09 06:35] LABS: Calcium 8.6 mg/dL (8.4-10.2); Potassium 3.5 mmol/L (3.5-5.1)
[2017-11-09] MEDS: IPRATROPIUM 0.5 MG/2.5 ML NEBU INHALATION SCH ×4 (08:21→18:54)
[2017-11-09] MEDS: DIGOXIN 250 MCG TAB PO SCH (08:53)
[2017-11-09] MEDS: NICOTINE 21MG/24HR PATCH TRANSDERM SCH (08:53)
[2017-11-09] MEDS: predniSONE 20 MG TAB PO SCH (08:53)
[2017-11-09] MEDS: METOPROLOL TARTRATE 50 MG TAB PO SCH ×2 (08:53→20:46)
--- NOTE | 2017-11-09 10:51 | P.PN ---
Subjective Progress Note Date: 11/09/17 Principal diagnosis: Acute hypoxic respiratory failure secondary to combination of both systolic congestive heart failure and COPD exacerbation. 67-year-old female patient, known history of COPD, CHF and chronic atrial fibrillation addition to a previous history of left-sided stroke with expressive aphasia and right-sided weakness, presents to the hospital because of worsening shortness of breath. The patient continues to smoke cigarettes on a daily basis. Her breathing has been gradually getting worse over the past week or so. She comes into the MRSA problem because of worsening shortness of breath and she was found to be in atrial fibrillation with rapid ventricular response and a heart rate in the 140-150 range. The patient has been maintained on a combination of metoprolol for rate control and anticoagulation with Coumadin regarding her atrial fibrillation. She is also on Spiriva and Ventolin nebulized she was on Estrace basis regarding her COPD. She is known to have some mild degree of CHF and a chest x-ray on admission showed failure and is a little edema. The patient was given Lasix. The patient was started on a Cardizem drip. The INR is therapeutic at this point in time. Lactic acid level is at 3.2. White cell count is not elevated. Troponin first set is negative. ProBNP level is 1540. The patient is admitted to the hospital for this reason. Her latest echocardiogram from 05/01/2017 shows an ejection fraction of 45-50% consistent with mild LV impairment and the right ventricle is moderately enlarged and the patient has moderate mitral regurgitation and severe mitral stenosis and severe tricuspid regurgitation with a PA pressure of around 48. The patient was seen again today 11/03/2017 in follow-up on the selective care unit. She is currently awake and alert in no acute distress. She is maintaining O2 saturations up to 100% on 2 L/m per nasal cannula. She remains tachycardic in 120s in atrial fibrillation and remains on a Cardizem drip at 5 mg per hour. She is being gently diuresed with Lasix 20 milligrams IV every 12 hours. She is continued on treatment for her COPD exacerbation as well as cleaning IV Solu-Medrol, bronchodilators. On 11/04/2017, the patient is doing well. Less shortness of breath compared to yesterday. The patient is on Cardizem drip at 5 mg an hour. The patient is on Lasix 40 mg IV push every 12 hours. The patient is on Solu-Medrol which has been tapered down to 40 mg every 6 hours. The patient is also on long-term anticoagulation with warfarin and INR from 2 days ago was therapeutic. She is not having any new complaints to she is calm and comfortable. Overall pulmonary status improved and the patient is obviously less short of breath compared to yesterday. On 11/05/2017 patient seen in follow-up on selective care unit. She is resting comfortably in bed, she has expressive aphasia, her and her sister are at the bedside, and they both agree patient's breathing is improving, patient is less wheezy and dyspneic. Remains in atrial fibrillation, with a rate of 79 BPM. Room air pulse ox is 90%, on 2 L per nasal cannula she is 98%, remains afebrile, lung sounds are diminished, with some bibasilar crackles, no wheezing noted on today's exam. Patient is diuresing, currently on Lasix 40 mg every 12 hours. Continues on empiric antibiotics in the form of Rocephin, and nebulized treatments in addition to IV Solu-Medrol. The patient is seen again today 11/06/2017 in follow-up on the selective care unit. She is currently sitting up in bed. She is awake and alert in no acute distress. Maintaining good O2 saturations in the mid 90s on 2 L/m per nasal cannula. She's been afebrile. Rate is well controlled. White count 10.2. Hemoglobin 13.6. INR 3.8. Creatinine 1.00. She is currently on IV Lasix 80 mg every 12 hours. The patient was seen again today 11/07/2017 in follow-up on the selective care unit. She is resting quite comfortably in bed. Today's chest x-ray shows evidence of chronic changes but no acute pulmonary process. She continues to maintain good O2 saturations in the upper 90s on 2 L/m per nasal cannula. She is afebrile. ID is on the case regarding the enterococcus fascia. Repeat blood cultures are pending. Urine culture is pending. Computed tomography scan of the abdomen and pelvis have been ordered and if negative will be requiring a BERNARDO. She remains on vancomycin. She remains on IV diuretics. She is down 2 kg. Creatinine 1.09. INR 3.1. The patient is seen again today 11/08/2017 in follow-up on the selective care unit. She is currently sitting up in a chair at the bedside. She is awake and alert in no acute distress. She denies any worsening shortness of breath. She continues with a loose nonproductive cough. She is afebrile. Maintaining O2 saturations in the upper 90s on 2 L/m per nasal cannula. She remains in atrial fibrillation with controlled ventricular response currently. INR 2.2. She is on Lasix 80 mg every 12 hours. Patient seen again today 11/09/2017 in follow-up on the selective care unit. She is currently sitting up in bed. She is awake and alert in no acute distress. She is asking to go home. She denies any worsening shortness of breath. She continues with a loose nonproductive cough. No chills or night sweats. Maintaining O2 saturations in the 90s on room air. She's been afebrile. She remains in atrial fibrillation. Heart rate better controlled. She remains on beta blockers and digoxin. Anticoagulated with warfarin. INR 1.9. Being diuresed with Lasix 80 mg IV every 12 hours. Objective - Vital Signs Vital signs: Vital Signs Temp 97.6 F 11/09/17 08:51 Pulse 90 11/09/17 08:51 Resp 20 11/09/17 08:51 BP 83/51 11/09/17 08:51 Pulse Ox 91 L 11/09/17 08:51 Intake & Output 11/08/17 11/09/17 11/09/17 18:59 06:59 18:59 Intake Total 720 360 Balance 720 360 Weight 95.2 kg Intake: Intake, IV Titration 0 Amount Vancomycin 2,000 mg In 0 Sodium Chloride 0.9% 500 ml @ 167 mls/hr IVPB Q24H [facility] Rx#:[id number] Oral 720 360 Other: Voiding Method Diaper # Voids 2 - Exam Gen. appearance the patient is a mild degree of respiratory distress even at rest. The patient has some facial asymmetry related to previous CVA. She is not using accessory muscles of breathing. Head exam was generally normal. There was no scleral icterus or corneal arcus. Mucous membranes were moist. Neck was supple and without jugular venous distension, thyromegaly, or carotid bruits. Carotids were easily palpable bilaterally. There was no adenopathy. Lungs sounds are diminished bilaterally. Heart sounds are irregular, positive S1-S2 and there is a faint systolic ejection murmur grade 2/6 heard throughout the precordium. Abdominal exam revealed normal bowel sounds. The abdomen was soft, non-tender, and without masses, organomegaly, or appreciable enlargement of the abdominal aorta. Examination of the extremities revealed easily palpable radial, femoral and pedal pulses. There was no cyanosis, clubbing and the patient has +1-2 pitting edema in lower extremities bilaterally. Neurologically the patient is awake. The patient is aphasic. She has chronic hemiplegia on the right side with right-sided spasticity and weakness. Facial asymmetry is present. There is expressive aphasia. - Labs CBC & Chem 7: 11/06/17 05:51 11/09/17 05:29 Labs: Abnormal Lab Results - Last 24 Hours (Table) 11/08/17 11/08/17 11/08/17 Range/Units 05:29 11:26 16:40 PT (9.0-12.0) sec INR (<1.2) Chloride 94 L (98-107) mmol/L Carbon Dioxide 39 H (22-30) mmol/L BUN 44 H (7-17) mg/dL POC Glucose (mg/dL) 128 H 237 H (75-99) mg/dL 11/08/17 11/09/17 11/09/17 Range/Units 21:21 05:29 05:29 PT 17.2 H (9.0-12.0) sec INR 1.9 H (<1.2) Chloride 91 L (98-107) mmol/L Carbon Dioxide 42 H* (22-30) mmol/L BUN 35 H (7-17) mg/dL POC Glucose (mg/dL) 266 H (75-99) mg/dL Microbiology - Last 24 Hours (Table) 11/05/17 13:25 Blood Culture - Preliminary Blood No Growth after 72 hours 11/05/17 13:29 Blood Culture - Preliminary Blood No Growth after 72 hours 11/06/17 12:23 Blood Culture - Preliminary Blood No Growth after 48 hours Assessment and Plan Assessment: Assessment 1 acute hypoxic respiratory failure secondary to a combination of acute exacerbation of systolic congestive heart failure and exacerbation and COPD improved. 2 chronic atrial fibrillation, rapid ventricular response at a time of admission. 8 better controlled. On beta blockers and digoxin. 3 CHF mild systolic dysfunction and the patient went into acute CHF at a time of admission because of A. fib/RVR. Note that the patient has valvular heart disease with moderate mitral regurgitation and severe mitral stenosis which probably exacerbated atrial fibrillation and CHF in addition. 4 COPD with secondary exacerbation 5 history of CVA with right-sided hemiplegia and expressive aphasia. The patient is essentially bedridden 6 smoking 7 hypertension 8 hyperlipidemia 9 valvular heart disease, in the form of moderate mitral regurgitation and severe mitral stenosis with secondary pulmonary hypertension and the patient is also mild impairment of the LV function 10 mild lactic acidosis, sepsis ruled out. Plan: The patient is seen and evaluated by Dr. Delcid. She is stable from the pulmonary standpoint. We'll continue with her current pulmonary medications. She is again educated regarding importance of complete smoking cessation. NicoDerm patch is in place. She remains on Lasix now at 80 mg IV every 12 hours per cardiology. Vancomycin will be transitioned to Zyvox per ID. We'll see the patient on as-needed basis. I, the cosigning physician, performed a history & physical examination of the patient. Lungs sounds clear, diminished. Maintaining good O2 saturations in the 90s on room air.. I discussed the assessment and plan of care with my nurse practitioner, Vicki Guerrero. I attest to the above note as dictated by her.
[2017-11-09 11:23] VITALS: BMI 39.6
[2017-11-09 11:54] LABS: Glucose,Whole Blood 128 mg/dL (75-99)
[2017-11-09] MEDS: SPIRONOLACTONE 25 MG TAB PO SCH (12:06)
[2017-11-09] MEDS: FUROSEMIDE 10 MG/ML 10 ML VIAL IV SCH (12:06)
--- NOTE | 2017-11-09 13:07 | P.PN ---
Subjective Progress Note Date: 11/09/17 This is a pleasant 67-year-old female patient with past history significant for chronic atrial fibrillation, on oral antral anticoagulation with Coumadin as well as history of CVA causing right-sided weakness as well as slurred speech and a history of chronic obstructive pulmonary disease on oxygen at home. She presented to the hospital with complaints of shortness of breath. Patient does have communication problems and therefore only answers yes or no. She presented to the emergency department with worsening dyspnea. No complaints of chest discomfort no dizziness or lightheadedness and no palpitations. Patient was diagnosed with COPD exacerbation as well as CHF exacerbation. The EKG also showed atrial fibrillation with rapid ventricular response. NT proBNP was elevated. CBC and BMP came in to be a within normal limits. Echocardiogram from April 2017 revealed mild cardiomyopathy with an ejection fraction of around 45%. Patient continues to be on IV Lasix which we' ll discontinue today and global climate change analyst to oral diuretics. She has diuresed well through the night last night. Patient feels well overall and is quite eager to be discharged home today. INR 1.9, sodium 139, potassium 3.5, BUN 34 and creatinine 0.8. Objective - Vital Signs Vital signs: Vital Signs Temp 97.2 F L 11/09/17 11:43 Pulse 74 11/09/17 11:43 Resp 20 11/09/17 11:43 BP 104/57 11/09/17 11:43 Pulse Ox 91 L 11/09/17 11:43 Intake & Output 11/08/17 11/09/17 11/09/17 18:59 06:59 18:59 Intake Total 720 360 240 Balance 720 360 240 Weight 95.2 kg 95.2 kg Intake: Intake, IV Titration 0 Amount Vancomycin 2,000 mg In 0 Sodium Chloride 0.9% 500 ml @ 167 mls/hr IVPB Q24H [facility] Rx#:[id number] Oral 720 360 240 Other: Voiding Method Diaper # Voids 2 - Exam PHYSICAL EXAMINATION: HEENT: Head is atraumatic, normocephalic. Pupils equal, round. Neck is supple. There is no elevated jugular venous pressure. HEART EXAMINATION: Heart sounds irregularly irregular, S1 and S2 normal. No murmur or gallop heard. CHEST EXAMINATION: Lungs are clear. No chest wall tenderness is noted on palpation or with deep breathing. ABDOMEN: Soft, nontender. Bowel sounds are heard. No organomegaly noted. EXTREMITIES: diminished peripheral pulses with evidence of trace peripheral edema and no calf tenderness noted. NEUROLOGIC patient is awake, alert and oriented. Able to answer yes and no. - Labs CBC & Chem 7: 11/06/17 05:51 11/09/17 05:29 Labs: Abnormal Lab Results - Last 24 Hours (Table) 11/08/17 11/08/17 11/09/17 Range/Units 16:40 21:21 05:29 PT 17.2 H (9.0-12.0) sec INR 1.9 H (<1.2) Chloride (98-107) mmol/L Carbon Dioxide (22-30) mmol/L BUN (7-17) mg/dL POC Glucose (mg/dL) 237 H 266 H (75-99) mg/dL 11/09/17 11/09/17 Range/Units 05:29 11:44 PT (9.0-12.0) sec INR (<1.2) Chloride 91 L (98-107) mmol/L Carbon Dioxide 42 H* (22-30) mmol/L BUN 35 H (7-17) mg/dL POC Glucose (mg/dL) 128 H (75-99) mg/dL Microbiology - Last 24 Hours (Table) 11/05/17 13:25 Blood Culture - Preliminary Blood No Growth after 72 hours 11/05/17 13:29 Blood Culture - Preliminary Blood No Growth after 72 hours 11/06/17 12:23 Blood Culture - Preliminary Blood No Growth after 48 hours Assessment and Plan Plan: Assessment: #1 acute hypoxic respiratory failure #2 acute on chronic systolic congestive heart failure. #3 atrial fibrillation with RVR. #4 known chronic atrial fibrillation on oral anticoagulation was #5 mild cardiomyopathy with an ejection fraction of 45% Plan We will discontinue the IV Lasix and start the patient on Lasix 40 mg by mouth twice a day. Repeat chest x-ray. Plan for possible discharge in 24 hours a stable. DNP note has been reviewed, I agree with a documented findings and plan of care. Patient was seen and examined.
--- NOTE | 2017-11-09 15:15 | P.PN ---
Subjective Progress Note Date: 11/08/17 Progress note being dictated for Dr. 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 Patient was also found have atrial fibrillation with rapid ventricular rate while ER and was started on Cardizem drip. Patient denied any complaints of chest pain. No nausea vomiting or abdominal pain. Patient was having cough and not able to bring out any sputum. No headache or dizziness or lightheadedness. Patient does have bilateral lower extremities swelling. Chest x-ray showedredemonstration of very mild interstitial edema and marked cardiomegaly, congestive heart failure. Patient was started on IV steroids and breathing treatments and Lasix IV. Last echocardiogram done on 05/01/2017 showed ejection fraction 45-50%, moderately enlarged RV, severely dilated LA, severely thickened mitral valve leaflets, moderate MR. Severe mitral stenosis severe tricuspid regurgitation, and moderate pulmonary hypertension with RVSP 46.68 mmhg. BNP 1540 INR 2.6 and lactic acid 3.2 EKG showed atrial fibrillation with a rapid ventricular rate. 11/03/2017 Patient's breathing status is slightly improved. Otherwise still having lower extremities swelling. Continued on IV steroids. Dose increased to 40 mg every 8 hourly. Lasix will be continued intravenously. No complaints of chest pain or worsening shortof breath. No nausea vomiting or abdominal pain. No diarrhea. Otherwise patient does have expressive dysphagia from previous CVA Discussed with her daughter at bedside in detail. 11/04/2017 Patient's breathing status is improving. Still having lower extremities swelling and bibasilar crackles. Patient is being continued on IV Lasix. Otherwise no acute overnight issues. Pulmonary and cardiology is following. 11/05/2017 Patient is feeling better but her blood cultures are positive for enterococcus CCM which is resistant to penicillins sensitive to vancomycin patient was started on vancomycin repeat blood cultures today and tomorrow will be obtained infectious disease will be consulted. 11/06/2017 Patient can use to be on vancomycin overnight events patient is feeling well. Denied any abdominal pain at this time. Awaiting repeat blood cultures. 11/07/2017 Patient repeat blood cultures are so far negative, because of enterococcal bacteremia infectious disease is recommending abdominal CAT scan. 11/08/2017 increased lethargy this morning. Patient is a 1 person assist. Afebrile. Enterococcus faecium bacteremia.Maintain on vancomycin as per ID.CT of abdomen and pelvis reporting reporting possible adrenal adenomas. UA negative. Diuresing well on Lasix IV push with 24-hour I&O reflecting a decrease in weight. Nonproductive cough, maintaining O2 sats in the high 90s on 2 L nasal cannula. Telemetry reporting atrial fibrillation with controlled ventricular rate. INR 2.2. Objective - Vital Signs Vital signs: Vital Signs Temp 97.8 F 11/08/17 16:00 Pulse 79 11/08/17 16:00 Resp 20 11/08/17 16:00 BP 100/54 11/08/17 16:00 Pulse Ox 91 L 11/08/17 16:00 Intake & Output 11/07/17 11/08/17 11/08/17 18:59 06:59 18:59 Intake Total 480 720 Balance 480 720 Weight 95.6 kg Intake: Intake, IV Titration 0 Amount Vancomycin 2,000 mg In 0 Sodium Chloride 0.9% 500 ml @ 167 mls/hr IVPB Q24H [facility] Rx#:[id number] Oral 480 720 Other: Voiding Method Bedside Commode Bedside Commode # Voids 2 2 # Bowel Movements 1 - Exam GENERAL: The patient is alert, expressive aphasia, not in any acute distress. Well developed, well nourished. HEENT: Pupils are round and equally reacting to light. EOMI. No scleral icterus. No conjunctival pallor. Oral mucosa moist CARDIOVASCULAR: S1 and S2 present. no murmur, rub, or gallop. PULMONARY: Chest is clear to auscultation, bilateral bases diminished. no wheezing or crackles. ABDOMEN: Soft, nontender, nondistended, normoactive bowel sounds. No palpable organomegaly. MUSCULOSKELETAL: No joint swelling or deformity. EXTREMITIES: No clubbing, bilateral pedal edema right more than left patient does have some cyanosis in the right lower extremity NEUROLOGICAL: Gross neurological examination did not reveal any new focal deficits-chronic right-sided hemiplegia, aphagia, facial asymmetry from prior CVA. - Labs CBC & Chem 7: 11/06/17 05:51 11/09/17 05:29 Labs: Abnormal Lab Results - Last 24 Hours (Table) 11/07/17 11/07/17 11/08/17 Range/Units 16:29 21:10 05:29 PT 19.7 H (9.0-12.0) sec INR 2.2 H (<1.2) Chloride (98-107) mmol/L Carbon Dioxide (22-30) mmol/L BUN (7-17) mg/dL POC Glucose (mg/dL) 135 H 248 H (75-99) mg/dL 11/08/17 11/08/17 Range/Units 05:29 11:26 PT (9.0-12.0) sec INR (<1.2) Chloride 94 L (98-107) mmol/L Carbon Dioxide 39 H (22-30) mmol/L BUN 44 H (7-17) mg/dL POC Glucose (mg/dL) 128 H (75-99) mg/dL Microbiology - Last 24 Hours (Table) 11/05/17 13:25 Blood Culture - Preliminary Blood No Growth after 72 hours 11/05/17 13:29 Blood Culture - Preliminary Blood No Growth after 72 hours 11/06/17 12:23 Blood Culture - Preliminary Blood No Growth after 48 hours 11/06/17 20:31 Urine Culture - Final Urine,Voided Assessment and Plan Assessment: Acute hypoxic respiratory failure with pulse ox 88% on admission. Multifactorial due to CHF and COPD. Acute COPD exacerbation Acute on chronic CHF with systolic dysfunction is expected 45-50% and 1 with valvular heart disease Atrial fibrillation presently rate controlled patient is on digoxin Bacteremia with enterococcus as mentioned above patient is on IV vancomycin source unclear, abdominal CAT scan Valvular heart disease with severe TR and MR and Moderate pulmonary hypertension with RVSP 46.68 mmhg. Chronic atrial fibrillation on anticoagulation witb Coumadin. Therapeutic on Coumadin history of CVA with right-sided hemiplegia and difficulty speech Lactic acidosis due to dehydration and volume depletion on admission. Resolved Hypertension Hyperlipidemia Osteoarthritis GERD Currently everyday smoker Plan: Continue on current medication regime ,monitoring and symptomatic treatment. Antiarrhythmics/diuretics as per cardiology. PT/OT, patient is a one-person assist. Recommend subacute rehab at discharge, though the patient currently declining. Antibiotics as per infectious disease. Discharge planning in progress and 24-48 hours. The impression and plan of care has been dictated as directed. : I performed a history and examination of this patient, discussed the same with the dictator. I agree with the dictator's note ,documented as a scribe. Any additional findings or plans will be noted.
--- NOTE | 2017-11-09 15:26 | P.PN ---
Subjective Progress Note Date: 11/09/17 Progress note being dictated for Dr. 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 Patient was also found have atrial fibrillation with rapid ventricular rate while ER and was started on Cardizem drip. Patient denied any complaints of chest pain. No nausea vomiting or abdominal pain. Patient was having cough and not able to bring out any sputum. No headache or dizziness or lightheadedness. Patient does have bilateral lower extremities swelling. Chest x-ray showedredemonstration of very mild interstitial edema and marked cardiomegaly, congestive heart failure. Patient was started on IV steroids and breathing treatments and Lasix IV. Last echocardiogram done on 05/01/2017 showed ejection fraction 45-50%, moderately enlarged RV, severely dilated LA, severely thickened mitral valve leaflets, moderate MR. Severe mitral stenosis severe tricuspid regurgitation, and moderate pulmonary hypertension with RVSP 46.68 mmhg. BNP 1540 INR 2.6 and lactic acid 3.2 EKG showed atrial fibrillation with a rapid ventricular rate. 11/03/2017 Patient's breathing status is slightly improved. Otherwise still having lower extremities swelling. Continued on IV steroids. Dose increased to 40 mg every 8 hourly. Lasix will be continued intravenously. No complaints of chest pain or worsening shortof breath. No nausea vomiting or abdominal pain. No diarrhea. Otherwise patient does have expressive dysphagia from previous CVA Discussed with her daughter at bedside in detail. 11/04/2017 Patient's breathing status is improving. Still having lower extremities swelling and bibasilar crackles. Patient is being continued on IV Lasix. Otherwise no acute overnight issues. Pulmonary and cardiology is following. 11/05/2017 Patient is feeling better but her blood cultures are positive for enterococcus CCM which is resistant to penicillins sensitive to vancomycin patient was started on vancomycin repeat blood cultures today and tomorrow will be obtained infectious disease will be consulted. 11/06/2017 Patient can use to be on vancomycin overnight events patient is feeling well. Denied any abdominal pain at this time. Awaiting repeat blood cultures. 11/07/2017 Patient repeat blood cultures are so far negative, because of enterococcal bacteremia infectious disease is recommending abdominal CAT scan. 11/08/2017 increased lethargy this morning. Patient is a 1 person assist. Afebrile. Enterococcus faecium bacteremia.Maintain on vancomycin as per ID.CT of abdomen and pelvis reporting reporting possible adrenal adenomas. UA negative. Diuresing well on Lasix IV push with 24-hour I&O reflecting a decrease in weight. Nonproductive cough, maintaining O2 sats in the high 90s on 2 L nasal cannula. Telemetry reporting atrial fibrillation with controlled ventricular rate. INR 2.2. 11/09/2017 Borderline hypotension. BUN 35, creatinine 0.8, CO2 42. IV push Lasix converted to oral. Anticoagulated on Coumadin with INR 1.9. Telemetry controlled atrial fibrillation. Continues to decline subacute rehab. Breathing improving, afebrile. Objective - Vital Signs Vital signs: Vital Signs Temp 97.2 F L 11/09/17 11:43 Pulse 74 11/09/17 11:43 Resp 20 11/09/17 11:43 BP 104/57 11/09/17 11:43 Pulse Ox 91 L 11/09/17 11:43 Intake & Output 11/08/17 11/09/17 11/09/17 18:59 06:59 18:59 Intake Total 720 360 360 Balance 720 360 360 Weight 95.2 kg 95.2 kg Intake: Intake, IV Titration 0 Amount Vancomycin 2,000 mg In 0 Sodium Chloride 0.9% 500 ml @ 167 mls/hr IVPB Q24H [facility] Rx#:[id number] Oral 720 360 360 Other: Voiding Method Diaper # Voids 2 1 - Exam GENERAL: The patient is alert, expressive aphasia, not in any acute distress. Well developed, well nourished. HEENT: Pupils are round and equally reacting to light. EOMI. No scleral icterus. No conjunctival pallor. Oral mucosa moist CARDIOVASCULAR: S1 and S2 present. no murmur, rub, or gallop. PULMONARY: Chest is clear to auscultation, bilateral bases diminished. no wheezing or crackles. ABDOMEN: Soft, nontender, nondistended, normoactive bowel sounds. No palpable organomegaly. MUSCULOSKELETAL: No joint swelling or deformity. EXTREMITIES: No clubbing, bilateral pedal edema right more than left patient does have some cyanosis in the right lower extremity NEUROLOGICAL: Gross neurological examination did not reveal any new focal deficits-chronic right-sided hemiplegia, aphagia, facial asymmetry from prior CVA. Microbiology 11/06/17 12:23 Blood Blood Culture - Preliminary No Growth after 72 hours 11/05/17 13:25 Blood Blood Culture - Preliminary No Growth after 72 hours 11/05/17 13:29 Blood Blood Culture - Preliminary No Growth after 72 hours 11/06/17 20:31 Urine,Voided Urine Culture - Final 11/02/17 13:56 Blood Blood Culture Gram Stain - Final 11/02/17 13:56 Blood Blood Culture - Final Enterococcus faecium 11/02/17 13:56 Blood Blood Culture - Final - Labs CBC & Chem 7: 11/06/17 05:51 11/09/17 05:29 Labs: Abnormal Lab Results - Last 24 Hours (Table) 11/08/17 11/08/17 11/09/17 Range/Units 16:40 21:21 05:29 PT 17.2 H (9.0-12.0) sec INR 1.9 H (<1.2) Chloride (98-107) mmol/L Carbon Dioxide (22-30) mmol/L BUN (7-17) mg/dL POC Glucose (mg/dL) 237 H 266 H (75-99) mg/dL 11/09/17 11/09/17 Range/Units 05:29 11:44 PT (9.0-12.0) sec INR (<1.2) Chloride 91 L (98-107) mmol/L Carbon Dioxide 42 H* (22-30) mmol/L BUN 35 H (7-17) mg/dL POC Glucose (mg/dL) 128 H (75-99) mg/dL Microbiology - Last 24 Hours (Table) 11/06/17 12:23 Blood Culture - Preliminary Blood No Growth after 72 hours 11/05/17 13:25 Blood Culture - Preliminary Blood No Growth after 72 hours 11/05/17 13:29 Blood Culture - Preliminary Blood No Growth after 72 hours Assessment and Plan Assessment: Acute hypoxic respiratory failure with pulse ox 88% on admission. Multifactorial due to CHF and COPD. Acute COPD exacerbation Acute on chronic CHF with systolic dysfunction is expected 45-50% with valvular heart disease Atrial fibrillation presently rate controlled Bacteremia with enterococcus faecum, abdominal CAT scan Valvular heart disease with severe TR and MR and Moderate pulmonary hypertension with RVSP 46.68 mmhg. Chronic atrial fibrillation on anticoagulation witb Coumadin. Therapeutic on Coumadin history of CVA with right-sided hemiplegia and difficulty speech Lactic acidosis due to dehydration and volume depletion on admission. Resolved Hypertension Hyperlipidemia Osteoarthritis GERD Currently everyday smoker Possible adrenal adenomas, recommend further follow-up outpatient with repeat CT /US of the adrenal glands. Plan: Continue on current medication regime ,monitoring and symptomatic treatment. Converted to oral Lasix. Smoking cessation reinforced. Antibiotics as per ID. Discharge planning in progress for tomorrow. Declining subacute rehab. The impression and plan of care has been dictated as directed. : I performed a history and examination of this patient, discussed the same with the dictator. I agree with the dictator's note ,documented as a scribe. Any additional findings or plans will be noted.
[2017-11-09 16:41] LABS: Glucose,Whole Blood 278 mg/dL (75-99)
[2017-11-09] MEDS: LISINOPRIL 5 MG TAB PO SCH (17:15)
[2017-11-09] MEDS: FUROSEMIDE 20 MG TAB PO SCH (17:15)
--- NOTE | 2017-11-09 17:47 | PN ---
PROGRESS NOTE DATE OF SERVICE: 11/09/2017 REASON FOR FOLLOWUP: Enterococcus faecium bacteremia. INTERVAL HISTORY: The patient is afebrile. She is more awake, alert. She is breathing comfortably. Denies having any chest pain or shortness of breath or cough. No abdominal pain or any diarrhea. PHYSICAL EXAMINATION: Her blood pressure is 103/74 with a pulse of 85, temperature 97.6. She is 92% on room air. General description is an elderly female lying in bed in no distress. RESPIRATORY SYSTEM: Unlabored breathing. Clear to auscultation anteriorly. HEART: S1, S2. Regular rate and rhythm. ABDOMEN: Soft. No tenderness. LABS: BUN of 35, creatinine 0.84. Blood cultures repeat 11/05 and 11/06 have been negative. DIAGNOSTIC IMPRESSION AND PLAN: Patient with Enterococcus faecium bacteremia; source possible urinary, as the cultures were done after the patient was started on vancomycin. CT of abdomen and pelvis did not show any abnormality. The patient's bacteremia cleared very quickly, making it very unlikely to be an endovascular source. She is currently on vancomycin. That will be transitioned to oral Zyvox for another week to finish her course of therapy. Continue with supportive care. MMODL / IJN: [id number] /
[2017-11-09 20:41] LABS: Glucose,Whole Blood 219 mg/dL (75-99)
[2017-11-09] MEDS: WARFARIN 3 MG TAB PO SCH (20:46)
[2017-11-10 06:24] VITALS: RESP 16
[2017-11-10] MEDS: VANCOMYCIN 2,000 MG in SODIUM CHLORIDE 0.9% 500 ML IVPB SCH (06:28)
[2017-11-10 07:39] LABS: Glucose,Whole Blood 113 mg/dL (75-99)
[2017-11-10] MEDS: IPRATROPIUM 0.5 MG/2.5 ML NEBU INHALATION SCH ×2 (07:40→11:17)
[2017-11-10 08:02] VITALS: BP 128/81; PULSE 81; TEMP 97.7
[2017-11-10] MEDS: INSULIN ASPART 100 UNIT/ML 1 ML 10 ML VIAL SQ SCH ×2 (08:12→12:09)
[2017-11-10] MEDS: PANTOPRAZOLE 40 MG TABLET PO SCH (08:36)
[2017-11-10] MEDS: FUROSEMIDE 20 MG TAB PO SCH (08:37)
[2017-11-10] MEDS: METOPROLOL TARTRATE 50 MG TAB PO SCH (08:37)
[2017-11-10] MEDS: DIGOXIN 250 MCG TAB PO SCH (08:37)
[2017-11-10] MEDS: LISINOPRIL 5 MG TAB PO SCH (08:37)
[2017-11-10] MEDS: NICOTINE 21MG/24HR PATCH TRANSDERM SCH (08:37)
[2017-11-10] MEDS: predniSONE 20 MG TAB PO SCH (08:38)
[2017-11-10] MEDS: SPIRONOLACTONE 25 MG TAB PO SCH (08:38)
[2017-11-10 08:41] LABS: INR 1.6 (<1.2); Prothrombin Time 15.1 sec (9.0-12.0)
[2017-11-10 08:43] LABS: Calcium 8.7 mg/dL (8.4-10.2); Potassium 3.9 mmol/L (3.5-5.1)
[2017-11-10 11:57] LABS: Glucose,Whole Blood 205 mg/dL (75-99)
--- NOTE | 2017-11-10 12:23 | P.DS ---
Providers Date of admission: 11/02/17 16:15 Attending physician: Du Lancaster Consults: 11/02/17 16:15 Consult Physician Routine Consulting Provider: Coleman Troy Consult Reason/Comments: COPD Do you want consulting provider notified?: Yes Consult Physician Routine Consulting Provider: Macy Lawrence Consult Reason/Comments: Rapid atrial fibrillation Do you want consulting provider notified?: Yes 11/05/17 13:13 Consult Physician Routine Consulting Provider: Suly Quinones Consult Reason/Comments: Bactremia Do you want consulting provider notified?: Yes Primary care physician: Du Lancaster [facility] Course: 67-year-old female with a known history of CHF with systolic dysfunction ejection fraction 45-50% on 05/01/2017, chronic atrial fibrillation on anticoagulation with Coumadin, COPD, 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 Patient was also found have atrial fibrillation with rapid ventricular rate while ER and was started on Cardizem drip. Patient denied any complaints of chest pain. No nausea vomiting or abdominal pain. Patient was having cough and not able to bring out any sputum. No headache or dizziness or lightheadedness. Patient does have bilateral lower extremities swelling. Chest x-ray showedredemonstration of very mild interstitial edema and marked cardiomegaly, congestive heart failure. Patient was started on IV steroids and breathing treatments and Lasix IV. Last echocardiogram done on 05/01/2017 showed ejection fraction 45-50%, moderately enlarged RV, severely dilated LA, severely thickened mitral valve leaflets, moderate MR. Severe mitral stenosis severe tricuspid regurgitation, and moderate pulmonary hypertension with RVSP 46.68 mmhg. BNP 1540 INR 2.6 and lactic acid 3.2 EKG showed atrial fibrillation with a rapid ventricular rate. 11/03/2017 Patient's breathing status is slightly improved. Otherwise still having lower extremities swelling. Continued on IV steroids. Dose increased to 40 mg every 8 hourly. Lasix will be continued intravenously. No complaints of chest pain or worsening shortof breath. No nausea vomiting or abdominal pain. No diarrhea. Otherwise patient does have expressive dysphagia from previous CVA Discussed with her daughter at bedside in detail. 11/04/2017 Patient's breathing status is improving. Still having lower extremities swelling and bibasilar crackles. Patient is being continued on IV Lasix. Otherwise no acute overnight issues. Pulmonary and cardiology is following. 11/05/2017 Patient is feeling better but her blood cultures are positive for enterococcus CCM which is resistant to penicillins sensitive to vancomycin patient was started on vancomycin repeat blood cultures today and tomorrow will be obtained infectious disease will be consulted. 11/06/2017 Patient can use to be on vancomycin overnight events patient is feeling well. Denied any abdominal pain at this time. Awaiting repeat blood cultures. 11/07/2017 Patient repeat blood cultures are so far negative, because of enterococcal bacteremia infectious disease is recommending abdominal CAT scan. 11/08/2017 increased lethargy this morning. Patient is a 1 person assist. Afebrile. Enterococcus faecium bacteremia.Maintain on vancomycin as per ID.CT of abdomen and pelvis reporting reporting possible adrenal adenomas. UA negative. Diuresing well on Lasix IV push with 24-hour I&O reflecting a decrease in weight. Nonproductive cough, maintaining O2 sats in the high 90s on 2 L nasal cannula. Telemetry reporting atrial fibrillation with controlled ventricular rate. INR 2.2. 11/09/2017 Borderline hypotension. BUN 35, creatinine 0.8, CO2 42. IV push Lasix converted to oral. Anticoagulated on Coumadin with INR 1.9. Telemetry controlled atrial fibrillation. Continues to decline subacute rehab. Breathing improving, afebrile. 11/10/2017 no overnight events patient is euvolemic patient will be discharged on Zyvox - Exam GENERAL: The patient is alert, expressive aphasia, not in any acute distress. Well developed, well nourished. HEENT: Pupils are round and equally reacting to light. EOMI. No scleral icterus. No conjunctival pallor. Oral mucosa moist CARDIOVASCULAR: S1 and S2 present. no murmur, rub, or gallop. PULMONARY: Chest is clear to auscultation, bilateral bases diminished. no wheezing or crackles. ABDOMEN: Soft, nontender, nondistended, normoactive bowel sounds. No palpable organomegaly. MUSCULOSKELETAL: No joint swelling or deformity. EXTREMITIES: No clubbing, bilateral pedal edema right more than left patient does have some cyanosis in the right lower extremity NEUROLOGICAL: Gross neurological examination did not reveal any new focal deficits-chronic right-sided hemiplegia, aphagia, facial asymmetry from prior CVA. Assessment and Plan Assessment: Acute hypoxic respiratory failure with pulse ox 88% on admission. Multifactorial due to CHF and COPD. Acute COPD exacerbation Acute on chronic CHF with systolic dysfunction is expected 45-50% with valvular heart disease Atrial fibrillation presently rate controlled that he cannot patient will be resumed back on 5 mg of Coumadin patient is presently receiving 3 mg of Coumadin here Bacteremia with enterococcus faecum, abdominal CAT scan Valvular heart disease with severe TR and MR and Moderate pulmonary hypertension with RVSP 46.68 mmhg. Chronic atrial fibrillation on anticoagulation witb Coumadin. Presently subtherapeutic and Coumadin we'll increase the dose back to 5 mg history of CVA with right-sided hemiplegia and difficulty speech Lactic acidosis due to urinary tract infection which improved Hypertension Hyperlipidemia Osteoarthritis GERD Currently everyday smoker Possible adrenal adenomas, recommend further follow-up outpatient with repeat CT /US of the adrenal glands. Patient Condition at Discharge: Stable Plan - Discharge Summary Discharge Rx Participant: Yes New Discharge Prescriptions: New Linezolid [Zyvox] 600 mg PO Q12H #12 tab predniSONE 10 mg PO DAILY #30 tab Continue Digoxin [Lanoxin] 250 mcg PO DAILY #30 tab Tiotropium Hooker [Spiriva] 1 cap INHALATION RT-DAILY Albuterol Nebulized [Ventolin Nebulized] 2.5 mg INHALATION RT-QID PRN PRN Reason: Shortness Of Breath Warfarin [Coumadin] 5 mg PO HS traMADol HCL [Ultram] 100 mg PO TID PRN PRN Reason: Pain Spironolactone [Aldactone] 25 mg PO DAILY Omeprazole 20 mg PO DAILY Furosemide [Lasix] 40 mg PO BID Lisinopril [Zestril] 5 mg PO DAILY Metoprolol Tartrate [Lopressor] 50 mg PO DAILY Discharge Medication List Digoxin [Lanoxin] 250 mcg PO DAILY #30 tab 04/27/15 [Rx] Tiotropium Hooker [Spiriva] 1 cap INHALATION RT-DAILY 05/01/17 [History] Albuterol Nebulized [Ventolin Nebulized] 2.5 mg INHALATION RT-QID PRN 08/17/17 [ History] Furosemide [Lasix] 40 mg PO BID 11/02/17 [History] Lisinopril [Zestril] 5 mg PO DAILY 11/02/17 [History] Metoprolol Tartrate [Lopressor] 50 mg PO DAILY 11/02/17 [History] Omeprazole 20 mg PO DAILY 11/02/17 [History] Spironolactone [Aldactone] 25 mg PO DAILY 11/02/17 [History] Warfarin [Coumadin] 5 mg PO HS 11/02/17 [History] traMADol HCL [Ultram] 100 mg PO TID PRN 11/02/17 [History] Linezolid [Zyvox] 600 mg PO Q12H #12 tab 11/10/17 [Rx] predniSONE 10 mg PO DAILY #30 tab 11/10/17 [Rx] Follow up Appointment(s)/Referral(s): Du Lancaster MD [Primary Care Provider] - 11/14/17 9:00 am () [facility], [NON-STAFF] - 1 Week Patient Instructions/Handouts: COPD (Chronic Obstructive Pulmonary Disease) (DC ) Activity/Diet/Wound Care/Special Instructions: Try to avoid taking prescribed Ultram (Tramadol) while taking antibiotic Zyvox Discharge Disposition: HOME WITH HOME HEALTH SERVICES
--- NOTE | 2017-11-10 15:42 | PN ---
PROGRESS NOTE DATE OF SERVICE: 11/10/2017. REASON FOR FOLLOWUP: Enterococcus faecium bacteremia. INTERVAL HISTORY: The patient is currently afebrile. She is breathing comfortably. Denies having any chest pain or shortness of breath. No cough. No abdominal pain. No diarrhea. EXAMINATION: Blood pressure 128/81 with a pulse of 90, temperature 97.7. She is 93% on room air. General description is an elderly female lying in bed in no distress. RESPIRATORY SYSTEM: Unlabored breathing. Clear to auscultation anteriorly. HEART: S1, S2. Regular rate and rhythm. ABDOMEN: Soft, no tenderness. EXTREMITIES: No edema feet. LABS: BUN of 35, creatinine 0.86. Blood culture repeat 11/05 and 11/06 have been negative. DIAGNOSTIC IMPRESSION AND PLAN: Patient with Enterococcus faecium bacteremia, source could be more likely urinary. The urine cultures were done 2 days after the patient was already on vancomycin more likely reason why they were negative. CT abdominal pelvis was negative for any colitis or intraabdominal source. The patient cleared her bacteremia very quickly negative indicating unlikely endovascular. She will finish therapy with oral Zyvox. Recommend repeating a blood cultures a week after finishing her oral Zyvox to make sure no evidence of recurrence of bacteremia. Continue supportive care. MMODL / IJN: [id number] /
== END 2017-11-10 14:25 | disposition home health service (06) | DRG 291 ==
LOC: EC 13:30 → 6SEL 16:15 → 4MS4W 11-09 22:27
PROVIDERS: ADMIT Family Medicine; ATTEND Family Medicine
DX: I11.0 Hypertensive heart disease with heart failure (principal); J96.01 Acute respiratory failure with hypoxia; I69.351 Hemiplegia and hemiparesis following cerebral infarction affecting right dominant side; J44.1 Chronic obstructive pulmonary disease with (acute) exacerbation; E87.2 Acidosis; N39.0 Urinary tract infection, site not specified; I08.1 Rheumatic disorders of both mitral and tricuspid valves; F17.210 Nicotine dependence, cigarettes, uncomplicated; E78.5 Hyperlipidemia, unspecified; B95.2 Enterococcus as the cause of diseases classified elsewhere; I27.29 Other secondary pulmonary hypertension; I42.9 Cardiomyopathy, unspecified; I48.2 Chronic atrial fibrillation; I50.23 Acute on chronic systolic (congestive) heart failure; I69.320 Aphasia following cerebral infarction; K21.9 Gastro-esophageal reflux disease without esophagitis; M19.90 Unspecified osteoarthritis, unspecified site; R47.02 Dysphasia; Z16.11 Resistance to penicillins; Z74.01 Bed confinement status; Z79.01 Long term (current) use of anticoagulants; Z80.3 Family history of malignant neoplasm of breast; Z99.81 Dependence on supplemental oxygen; Z87.01 Personal history of pneumonia (recurrent); Z79.899 Other long term (current) drug therapy; I27.20 Pulmonary hypertension, unspecified; D35.00 Benign neoplasm of unspecified adrenal gland
CPT/HCPCS: 36415; 71045; 74176; 80048; 80053; 80162; 80202; 81001; 82550; 82553; 83605; 83735; 83880; 84484; 85025; 85027; 85610; 85730; 87040; 87077; 87086; 87186; 93005; 94640; 94760; 96361; 96374; 96375; 99291; 99406

== ENCOUNTER 2017-12-18 21:35 | Inpatient (IN) | payer MEDICARE ==
[2017-12-18] MEDS ORDERED: methylPREDNISolone SOD SUCCI 125 MG/2 ML VIAL IV STA (21:52)
[2017-12-18] MEDS ORDERED: ALBUTEROL NEBULIZED 2.5 MG/3 ML INHALATION STA (21:52)
[2017-12-18] MEDS ORDERED: IPRATROPIUM 0.5 MG/2.5 ML NEBU INHALATION STA (21:53)
--- NOTE | 2017-12-18 21:56 | ED ---
General Adult HPI - General Chief complaint: Shortness of Breath Stated complaint: [place],Low O2 Time Seen by Provider: 12/18/17 21:49 Source: patient, EMS, RN notes reviewed, old records reviewed Mode of arrival: EMS Limitations: language barrier, physical limitation - History of Present Illness Initial comments: 67-year-old female presenting for evaluation of dyspnea. Patient has previous CVA, she is only able to answer yes or no questions. She states her difficulty breathing began within the past 24 hours. According to EMS she did have low oxygen saturation. She is not normally on home O2. She does have history of atrial fibrillation, COPD and is currently smoking. Denies fever or chills. Denies chest pain. Denies abdominal pain nausea vomiting. - Related Data Home Medications Medication Instructions Recorded Confirmed Tiotropium [place] [Spiriva] 1 cap INHALATION RT-DAILY 05/01/17 12/18/17 Albuterol Nebulized [Ventolin 2.5 mg INHALATION RT-QID PRN 08/17/17 12/18/17 Nebulized] Metoprolol Tartrate [Lopressor] 50 mg PO DAILY 11/02/17 12/18/17 Ibuprofen [Motrin] 800 mg PO TID PRN 12/18/17 12/18/17 Levothyroxine Sodium [Synthroid] 25 mcg PO DAILY 12/18/17 12/18/17 Warfarin [Coumadin] 5 mg PO Q48H 12/18/17 12/18/17 Warfarin [Coumadin] 7.5 mg PO Q48H 12/18/17 12/18/17 metFORMIN HCL [Glucophage] 500 mg PO DAILY 12/18/17 12/18/17 Previous Rx's Medication Instructions Recorded Digoxin [Lanoxin] 250 mcg PO DAILY #30 tab 04/27/15 Allergies Allergy/AdvReac Type Severity Reaction Status Date / Time No Known Allergies Allergy Verified 12/18/17 22:34 Review of Systems ROS Statement: Those systems with pertinent positive or pertinent negative responses have been documented in the HPI. ROS Other: All systems not noted in ROS Statement are negative. 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 History of Any Multi-Drug Resistant Organisms: None Reported Past Surgical History: Section, Hernia Repair, Orthopedic Surgery, Tonsillectomy Additional Past Surgical History / Comment(s): Incarcerated umbilical hernia repair/omentum resection, X2, L tibial IM nailing, teeth extractions. Past Anesthesia/Blood Transfusion Reactions: No Reported Reaction Past Psychological History: No Psychological Hx Reported Smoking Status: Current every day smoker Past Alcohol Use History: None Reported Past Drug Use History: None Reported - Past Family History Father Family Medical History: Unable to Obtain Additional Family Medical History / Comment(s): FATHER WAS HEALTHY AND LIVED TO BE 96YRS OLD. Mother Family Medical History: Cancer Additional Family Medical History / Comment(s): MOTHER HAD BREAST CANCER. General Exam Limitations: language barrier, physical limitation General appearance: alert, in no apparent distress Head exam: Present: atraumatic, normocephalic Eye exam: Present: normal appearance, PERRL Neck exam: Present: normal inspection. Absent: tenderness Respiratory exam: Present: wheezes, decreased breath sounds, prolonged expiratory. Absent: respiratory distress Cardiovascular Exam: Present: regular rate, irregular rhythm GI/Abdominal exam: Present: soft. Absent: distended, tenderness Extremities exam: Present: pedal edema, other (Chronic venous stasis) Neurological exam: Present: alert Skin exam: Present: warm, dry. Absent: cyanosis, diaphoretic Course Vital Signs 12/18/17 12/18/17 12/18/17 21:46 22:05 22:14 Temperature 96.8 F L Pulse Rate 76 89 109 H Respiratory 24 16 18 Rate Blood Pressure 131/65 O2 Sat by Pulse 100 Oximetry 12/18/17 12/18/17 23:29 23:51 Temperature 97.1 F L Pulse Rate 101 H 90 Respiratory 22 20 Rate Blood Pressure 124/80 120/75 O2 Sat by Pulse 98 96 Oximetry EKG Findings - EKG Comments: EKG Findings:: EKG: Atrial fibrillation with PVC, low voltage, rate of 98, QRS duration 104, QTC [address] segment elevation Medical Decision Making - Medical Decision Making 67-year-old female presenting with worsening dyspnea. Patient has increased pulmonary vascularity on chest x-ray as well as bilateral effusions and cardiomegaly. Consistent with congestive heart failure. BNP is elevated. Patient is given IV diuresis in the emergency department. INR supratherapeutic at 4.9, Coumadin will be held. Patient will be admitted for treatment of congestive heart failure. Case discussed with her primary care physician Dr. Lancaster, he will accept admission. Cardiology placed on consult. - Lab Data Result diagrams: 12/18/17 22:13 12/18/17 22:13 Lab Results 12/18/17 12/18/17 12/18/17 Range/Units 22:13 22:13 22:13 WBC 9.1 (3.8-10.6) k/uL RBC 4.73 (3.80-5.40) m/uL Hgb 14.2 (11.4-16.0) gm/dL Hct 48.0 H (34.0-46.0) % MCV 101.5 H (80.0-100.0) fL MCH 30.0 (25.0-35.0) pg MCHC 29.5 L (31.0-37.0) g/dL RDW 17.6 H (11.5-15.5) % Plt Count 245 (150-450) k/uL Neutrophils % 79 % Lymphocytes % 12 % Monocytes % 6 % Eosinophils % 1 % Basophils % 0 % Neutrophils # 7.2 (1.3-7.7) k/uL Lymphocytes # 1.1 (1.0-4.8) k/uL Monocytes # 0.6 (0-1.0) k/uL Eosinophils # 0.1 (0-0.7) k/uL Basophils # 0.0 (0-0.2) k/uL Hypochromasia Marked Anisocytosis Slight Macrocytosis Moderate PT (9.0-12.0) sec INR (<1.2) APTT (22.0-30.0) sec Sodium 138 (137-145) mmol/L Potassium 4.1 (3.5-5.1) mmol/L Chloride 103 (98-107) mmol/L Carbon Dioxide 27 (22-30) mmol/L Anion Gap 8 mmol/L BUN 24 H (7-17) mg/dL Creatinine 0.70 (0.52-1.04) mg/dL Est GFR (CKD-EPI)AfAm >90 (>60 ml/min/1.73 sqM) Est GFR (CKD-EPI)NonAf 90 (>60 ml/min/1.73 sqM) Glucose 128 H (74-99) mg/dL Plasma Lactic Acid Thang (0.7-2.0) mmol/L Calcium 9.1 (8.4-10.2) mg/dL Magnesium 2.1 (1.6-2.3) mg/dL Total Bilirubin 2.2 H (0.2-1.3) mg/dL AST 40 H (14-36) U/L ALT 65 H (9-52) U/L Alkaline Phosphatase 136 H (38-126) U/L Total Creatine Kinase 43 (30-135) U/L CK-MB (CK-2) 2.8 H* (0.0-2.4) ng/mL CK-MB (CK-2) Rel Index 6.5 Troponin I 0.021 (0.000-0.034) ng/mL NT-Pro-B Natriuret Pep pg/mL Total Protein 6.4 (6.3-8.2) g/dL Albumin 3.4 L (3.5-5.0) g/dL 12/18/17 12/18/17 12/18/17 Range/Units 22:13 22:13 22:13 WBC (3.8-10.6) k/uL RBC (3.80-5.40) m/uL Hgb (11.4-16.0) gm/dL Hct (34.0-46.0) % MCV (80.0-100.0) fL MCH (25.0-35.0) pg MCHC (31.0-37.0) g/dL RDW (11.5-15.5) % Plt Count (150-450) k/uL Neutrophils % % Lymphocytes % % Monocytes % % Eosinophils % % Basophils % % Neutrophils # (1.3-7.7) k/uL Lymphocytes # (1.0-4.8) k/uL Monocytes # (0-1.0) k/uL Eosinophils # (0-0.7) k/uL Basophils # (0-0.2) k/uL Hypochromasia Anisocytosis Macrocytosis PT 44.5 H (9.0-12.0) sec INR 4.9 H (<1.2) APTT 28.7 (22.0-30.0) sec Sodium (137-145) mmol/L Potassium (3.5-5.1) mmol/L Chloride (98-107) mmol/L Carbon Dioxide (22-30) mmol/L Anion Gap mmol/L BUN (7-17) mg/dL Creatinine (0.52-1.04) mg/dL Est GFR (CKD-EPI)AfAm (>60 ml/min/1.73 sqM) Est GFR (CKD-EPI)NonAf (>60 ml/min/1.73 sqM) Glucose (74-99) mg/dL Plasma Lactic Acid Thang 2.2 H* (0.7-2.0) mmol/L Calcium (8.4-10.2) mg/dL Magnesium (1.6-2.3) mg/dL Total Bilirubin (0.2-1.3) mg/dL AST (14-36) U/L ALT (9-52) U/L Alkaline Phosphatase (38-126) U/L Total Creatine Kinase (30-135) U/L CK-MB (CK-2) (0.0-2.4) ng/mL CK-MB (CK-2) Rel Index Troponin I (0.000-0.034) ng/mL NT-Pro-B Natriuret Pep 2070 pg/mL Total Protein (6.3-8.2) g/dL Albumin (3.5-5.0) g/dL Disposition Clinical Impression: Systolic congestive heart failure Disposition: ADMITTED IP TO THIS [facility] Condition: Stable Is patient prescribed a controlled substance at d/c from ED?: No Referrals: Du Lancaster MD [Primary Care Provider] - 1-2 days Decision to Admit Reason: Admit from EC Decision Date: 12/19/17 Decision Time: 00:17
[2017-12-18 22:52] LABS: Anisocytosis Slight; Basophils % (A) 0 %; Eosinophils # (A) 0.1 k/uL (0-0.7); Eosinophils % (A) 1 %; HGB 14.2 gm/dL (11.4-16.0); Hypochromasia Marked; Lymphocytes # (A) 1.1 k/uL (1.0-4.8); Lymphocytes % (A) 12 %; MCHC 29.5 g/dL (31.0-37.0); MCV 101.5 fL (80.0-100.0); Macrocytosis Moderate; Mean Platelet Volume 7.3; Monocytes # (A) 0.6 k/uL (0-1.0); Monocytes % (A) 6 %; Neutrophils # (A) 7.2 k/uL (1.3-7.7); Neutrophils % (A) 79 %; Platelet Count 245 k/uL (150-450); RBC 4.73 m/uL (3.80-5.40); RDW 17.6 % (11.5-15.5); WBC 9.1 k/uL (3.8-10.6)
[2017-12-18 22:59] LABS: INR 4.9 (<1.2); Partial Thromboplastin Time 28.7 sec (22.0-30.0); Prothrombin Time 44.5 sec (9.0-12.0)
[2017-12-18 23:01] LABS: ALT 65 U/L (9-52); AST 40 U/L (14-36); Albumin 3.4 g/dL (3.5-5.0); Alkaline Phosphatase 136 U/L (38-126); Anion Gap 8 mmol/L; Blood Urea Nitrogen 24 mg/dL (7-17); Calcium 9.1 mg/dL (8.4-10.2); Carbon Dioxide 27 mmol/L (22-30); Chloride 103 mmol/L (98-107); Glucose 128 mg/dL (74-99); Magnesium 2.1 mg/dL (1.6-2.3); Potassium 4.1 mmol/L (3.5-5.1); Sodium 138 mmol/L (137-145); Total Bilirubin 2.2 mg/dL (0.2-1.3); Total Protein 6.4 g/dL (6.3-8.2)
--- NOTE | 2017-12-18 23:11 | XR ---
EXAM: XR Chest, 2 Views CLINICAL HISTORY: ITS.REASON XR Reason: difficulty breathing TECHNIQUE: Frontal and lateral views of the chest. COMPARISON: No relevant prior studies available. FINDINGS: Lungs: Prominent pulmonary vascularity. Mild patchy lung opacities with possible trace pleural effusions. Pleural space: No pneumothorax. Heart: Enlarged cardiac silhouette. Mediastinum: Unremarkable. Bones/joints: Unremarkable. IMPRESSION: 1. Prominent pulmonary vascularity. Mild patchy lung opacities with possible trace pleural effusions. Correlate clinically for edema or infection. 2. Enlarged cardiac silhouette.
[2017-12-18 23:17] LABS: Troponin I 0.021 ng/mL (0.000-0.034)
[2017-12-18] MEDS ORDERED: FUROSEMIDE 10 MG/ML 4 ML VIAL IV STA (23:26)
[2017-12-18 23:28] LABS: Creatine Kinase MB 2.8 ng/mL (0.0-2.4)
[2017-12-19] MEDS ORDERED: NALOXONE 0.4 MG/ML 1 ML VIAL IV PRN (00:14)
[2017-12-19] MEDS ORDERED: ACETAMINOPHEN TAB 325 MG TAB PO PRN (00:14)
[2017-12-19] MEDS ORDERED: IBUPROFEN 800 MG TAB PO PRN (00:15)
[2017-12-19 05:03] LABS: Troponin I 0.019 ng/mL (0.000-0.034)
[2017-12-19 05:05] LABS: Creatine Kinase MB 2.5 ng/mL (0.0-2.4)
[2017-12-19] MEDS: LEVOTHYROXINE 25 MCG TAB PO SCH (06:11)
[2017-12-19] MEDS: ALBUTEROL NEBULIZED 2.5 MG/3 ML INHALATION PRN ×4 (06:53→19:37)
[2017-12-19] MEDS: DIGOXIN 250 MCG TAB PO SCH (07:50)
[2017-12-19] MEDS: metFORMIN 500 MG TAB PO SCH (07:50)
[2017-12-19] MEDS: METOPROLOL TARTRATE 50 MG TAB PO SCH (07:50)
[2017-12-19] MEDS: FUROSEMIDE 10 MG/ML 4 ML VIAL IV SCH ×2 (07:50→21:27)
[2017-12-19 10:27] LABS: Troponin I 0.013 ng/mL (0.000-0.034)
[2017-12-19 10:34] LABS: Creatine Kinase MB 2.5 ng/mL (0.0-2.4)
--- NOTE | 2017-12-19 11:03 | P.CRDCN ---
History of Present Illness Consult date: 12/19/17 History of present illness: This is a 67-year-old female with history of previous CVA, chronic atrial fibrillation and also COPD who is now admitted to the hospital with complaints of increasing shortness of breath. Patient has a previous CVA and cannot communicate very well except saying yes or no. She denied any chest pain. This seemed to be mild swelling of the legs. Chest x-ray showed cardiomegaly and a possible mild pleural effusion. Patient was treated with IV Lasix with improvement of her symptoms. She is lying down in the bed without any significant orthopnea. She has known to have cardiomyopathy with an ejection fraction of 45%. Her proBNP is elevated but it was elevated chronically. I would recommend continue current medical therapy. Further recommendation will depend upon the clinical course. Her EKG showed atrial fibrillation with a rapid ventricular response. Patient is on anticoagulation with therapeutic INRs. Review of Systems Not obtained Past Medical History Past Medical History: Atrial Fibrillation, Chest Pain / Angina, Heart Failure, COPD, CVA/TIA, GERD/Reflux, Hyperlipidemia, Hypertension, Osteoarthritis (OA), Pneumonia, Renal Disease Additional Past Medical History / Comment(s): 2002 CVA with R sided weakness arm /leg/contracted R hand and dysphasia, Afib with RVR, cardiac valve disease, DJD , occasional back pain, bronchitis, UTIs, kidney infections, anemia, head injury. 2018 CVA with right side flaccid and dysphagia History of Any Multi-Drug Resistant Organisms: None Reported Past Surgical History: Section, Hernia Repair, Orthopedic Surgery, Tonsillectomy Additional Past Surgical History / Comment(s): Incarcerated umbilical hernia repair/omentum resection, X2, L tibial IM nailing, teeth extractions. Past Anesthesia/Blood Transfusion Reactions: No Reported Reaction Past Psychological History: No Psychological Hx Reported Smoking Status: Current every day smoker Past Alcohol Use History: None Reported Additional Past Alcohol Use History / Comment(s): has smoked off and on since age 14 Past Drug Use History: None Reported - Past Family History Father Family Medical History: No Reported History Additional Family Medical History / Comment(s): FATHER WAS HEALTHY AND LIVED TO BE 96YRS OLD. Mother Family Medical History: Cancer Additional Family Medical History / Comment(s): MOTHER HAD BREAST CANCER. Medications and Allergies Home Medications Medication Instructions Recorded Confirmed Type Digoxin [Lanoxin] 250 mcg PO DAILY #30 tab 04/27/15 12/18/17 Rx Tiotropium [place] [Spiriva] 1 cap INHALATION RT-DAILY 05/01/17 12/18/17 History Albuterol Nebulized [Ventolin 2.5 mg INHALATION RT-QID PRN 08/17/17 12/18/17 History Nebulized] Metoprolol Tartrate [Lopressor] 50 mg PO DAILY 11/02/17 12/18/17 History Ibuprofen [Motrin] 800 mg PO TID PRN 12/18/17 12/18/17 History Levothyroxine Sodium [Synthroid] 25 mcg PO DAILY 12/18/17 12/18/17 History Warfarin [Coumadin] 5 mg PO Q48H 12/18/17 12/18/17 History Warfarin [Coumadin] 7.5 mg PO Q48H 12/18/17 12/18/17 History metFORMIN HCL [Glucophage] 500 mg PO DAILY 12/18/17 12/18/17 History Allergies Allergy/AdvReac Type Severity Reaction Status Date / Time No Known Allergies Allergy Verified 12/19/17 02:15 Physical Exam Vitals: Vital Signs Temp Pulse Pulse Resp BP BP Pulse Ox 12/19/17 10:52 84 12/19/17 07:56 97.7 F 129 H 18 114/60 93 L 12/19/17 07:02 88 12/19/17 06:53 84 12/19/17 04:00 97.1 F L 90 17 112/83 95 12/18/17 23:51 90 20 120/75 96 12/18/17 23:29 97.1 F L 101 H 22 124/80 98 12/18/17 22:14 109 H 18 12/18/17 22:05 89 16 12/18/17 21:46 96.8 F L 76 24 131/65 100 Intake and Output 12/18/17 12/19/17 12/19/17 22:59 06:59 14:59 Intake Total 100 Balance 100 Intake: Oral 100 Other: Voiding Method Diaper Diaper # Voids 1 Weight 104.326 kg 107 kg GENERAL EXAM: Patient is alert and oriented and doesn't appear to be in any acute distress HEENT: Normocephalic. Normal reaction of pupils, equal size, normal range of extraocular motion. No erythema or exudates in the throat. NECK: No masses, no nuchal rigidity. CHEST: No chest wall deformity. LUNGS: Diminished breath sounds at bases with few rales HEART: S1 and S2 normal with no audible mumurs or gallops. Regular rhythm, femorals equal on both sides.. ABDOMEN: No hepatosplenomegaly, normal bowel sounds, no guarding or rigidity. SKIN: No rashes CENTRAL NERVOUS SYSTEM: No focal deficits. EXTREMITIES: Mild bilateral edema and erythema Results 12/18/17 22:13 12/18/17 22:13 Cardiac Enzymes 12/18/17 12/18/17 12/19/17 Range/Units 22:13 22:13 04:09 AST 40 H (14-36) U/L CK-MB (CK-2) 2.8 H* 2.5 H* (0.0-2.4) ng/mL Troponin I 0.021 0.019 (0.000-0.034) ng/mL 12/19/17 Range/Units 09:28 AST (14-36) U/L CK-MB (CK-2) 2.5 H* (0.0-2.4) ng/mL Troponin I 0.013 (0.000-0.034) ng/mL Coagulation 12/18/17 Range/Units 22:13 PT 44.5 H (9.0-12.0) sec APTT 28.7 (22.0-30.0) sec CBC 12/18/17 Range/Units 22:13 WBC 9.1 (3.8-10.6) k/uL RBC 4.73 (3.80-5.40) m/uL Hgb 14.2 (11.4-16.0) gm/dL Hct 48.0 H (34.0-46.0) % Plt Count 245 (150-450) k/uL Comprehensive Metabolic Panel 12/18/17 Range/Units 22:13 Sodium 138 (137-145) mmol/L Potassium 4.1 (3.5-5.1) mmol/L Chloride 103 (98-107) mmol/L Carbon Dioxide 27 (22-30) mmol/L BUN 24 H (7-17) mg/dL Creatinine 0.70 (0.52-1.04) mg/dL Glucose 128 H (74-99) mg/dL Calcium 9.1 (8.4-10.2) mg/dL AST 40 H (14-36) U/L ALT 65 H (9-52) U/L Alkaline Phosphatase 136 H (38-126) U/L Total Protein 6.4 (6.3-8.2) g/dL Albumin 3.4 L (3.5-5.0) g/dL Current Medications Generic Name Dose Route Start Last Admin Trade Name Freq PRN Reason Stop Dose Admin Acetaminophen 650 mg 12/19/17 00:14 Tylenol Tab PO Q6HR PRN Mild Pain or Fever > 100.5 Albuterol Sulfate 2.5 mg 12/19/17 00:15 12/19/17 10:52 Ventolin Nebulized INHALATION 2.5 mg RT-QID PRN Administration Shortness Of Breath Digoxin 250 mcg 12/19/17 09:00 12/19/17 07:50 Lanoxin PO 250 mcg DAILY KALINA Administration Furosemide 40 mg 12/19/17 09:00 12/19/17 07:50 Lasix IV 40 mg Q12HR KALINA Administration Ibuprofen 800 mg 12/19/17 00:15 Motrin PO TID PRN Pain Levothyroxine Sodium 25 mcg 12/19/17 06:30 12/19/17 06:11 Synthroid PO 25 mcg DAILY@0630 KALINA Administration Metformin HCl 500 mg 12/19/17 09:00 12/19/17 07:50 Glucophage PO 500 mg DAILY KALINA Administration Metoprolol Tartrate 50 mg 12/19/17 09:00 12/19/17 07:50 Lopressor PO 50 mg DAILY KALINA Administration Naloxone HCl 0.2 mg 12/19/17 00:14 Narcan IV Q2M PRN Opioid Reversal Intake and Output 12/18/17 12/19/17 12/19/17 22:59 06:59 14:59 Intake Total 100 Balance 100 Intake: Oral 100 Other: Voiding Method Diaper Diaper # Voids 1 Weight 104.326 kg 107 kg 12/18/17 22:13 12/18/17 22:13 EKG Interpretations (text) Atrial fibrillation with a rapid ventricular response Assessment and Plan (1) COPD (chronic obstructive pulmonary disease) Current Visit: Yes Status: Acute Code(s): J44.9 - CHRONIC OBSTRUCTIVE PULMONARY DISEASE, UNSPECIFIED SNOMED Code(s): 75504348 (2) Systolic congestive heart failure Current Visit: Yes Status: Acute Code(s): I50.20 - UNSPECIFIED SYSTOLIC ( CONGESTIVE) HEART FAILURE SNOMED Code(s): 055385703 (3) Atrial fibrillation with rapid ventricular response Current Visit: No Status: Acute Code(s): I48.91 - UNSPECIFIED ATRIAL FIBRILLATION SNOMED Code(s): 999328759528130 (4) Chronic renal failure Current Visit: No Status: Acute Code(s): N18.9 - CHRONIC KIDNEY DISEASE, UNSPECIFIED SNOMED Code(s): 57927307 (5) HTN (hypertension) Current Visit: No Status: Acute Code(s): I10 - ESSENTIAL (PRIMARY) HYPERTENSION SNOMED Code(s): 02890801 (6) History of CVA (cerebrovascular accident) Current Visit: No Status: Acute Code(s): Z86.73 - PRSNL HX OF TIA (TIA), AND CEREB INFRC W/O RESID DEFICITS SNOMED Code(s): 118098602 Plan: Patient is admitted with increasing shortness of breath which could be multifactorial. Patient will be started on oral diuretics along with the beta darline and CHANDRIKA inhibitor. Further recommendation will depend upon the clinical course.
[2017-12-19] MEDS ORDERED: LISINOPRIL 2.5 MG TAB PO STA (11:10)
--- NOTE | 2017-12-19 11:37 | P.HPIM ---
History of Present Illness 67-year-old female presented emergency room with complaints of increasing shortness of breath. Patient does have a history of chronic atrial fibrillation COPD with smoking. Patient has had a previous CVA that his left her with right-sided weakness and dysphasia. Known with cardiomyopathy and systolic congestive heart failure with ejection fraction of 45% Review of Systems Cardiovascular: Reports leg edema Respiratory: Reports cough, Reports dyspnea Past Medical History Past Medical History: Atrial Fibrillation, Chest Pain / Angina, Heart Failure, COPD, CVA/TIA, GERD/Reflux, Hyperlipidemia, Hypertension, Osteoarthritis (OA), Pneumonia, Renal Disease Additional Past Medical History / Comment(s): 2002 CVA with R sided weakness arm /leg/contracted R hand and dysphasia, Afib with RVR, cardiac valve disease, DJD , occasional back pain, bronchitis, UTIs, kidney infections, anemia, head injury. 2018 CVA with right side flaccid and dysphagia History of Any Multi-Drug Resistant Organisms: None Reported Past Surgical History: Section, Hernia Repair, Orthopedic Surgery, Tonsillectomy Additional Past Surgical History / Comment(s): Incarcerated umbilical hernia repair/omentum resection, X2, L tibial IM nailing, teeth extractions. Past Anesthesia/Blood Transfusion Reactions: No Reported Reaction Past Psychological History: No Psychological Hx Reported Smoking Status: Current every day smoker Past Alcohol Use History: None Reported Additional Past Alcohol Use History / Comment(s): has smoked off and on since age 14 Past Drug Use History: None Reported - Past Family History Father Family Medical History: No Reported History Additional Family Medical History / Comment(s): FATHER WAS HEALTHY AND LIVED TO BE 96YRS OLD. Mother Family Medical History: Cancer Additional Family Medical History / Comment(s): MOTHER HAD BREAST CANCER. Medications and Allergies Home Medications Medication Instructions Recorded Confirmed Type Digoxin [Lanoxin] 250 mcg PO DAILY #30 tab 04/27/15 12/18/17 Rx Tiotropium [place] [Spiriva] 1 cap INHALATION RT-DAILY 05/01/17 12/18/17 History Albuterol Nebulized [Ventolin 2.5 mg INHALATION RT-QID PRN 08/17/17 12/18/17 History Nebulized] Metoprolol Tartrate [Lopressor] 50 mg PO DAILY 11/02/17 12/18/17 History Ibuprofen [Motrin] 800 mg PO TID PRN 12/18/17 12/18/17 History Levothyroxine Sodium [Synthroid] 25 mcg PO DAILY 12/18/17 12/18/17 History Warfarin [Coumadin] 5 mg PO Q48H 12/18/17 12/18/17 History Warfarin [Coumadin] 7.5 mg PO Q48H 12/18/17 12/18/17 History metFORMIN HCL [Glucophage] 500 mg PO DAILY 12/18/17 12/18/17 History Allergies Allergy/AdvReac Type Severity Reaction Status Date / Time No Known Allergies Allergy Verified 12/19/17 02:15 Physical Exam Vitals: Vital Signs Temp Pulse Pulse Resp BP BP Pulse Ox 12/19/17 11:11 97.5 F L 79 16 104/61 94 L 12/19/17 11:04 88 12/19/17 10:52 84 12/19/17 07:56 97.7 F 129 H 18 114/60 93 L 12/19/17 07:02 88 12/19/17 06:53 84 12/19/17 04:00 97.1 F L 90 17 112/83 95 12/18/17 23:51 90 20 120/75 96 12/18/17 23:29 97.1 F L 101 H 22 124/80 98 12/18/17 22:14 109 H 18 12/18/17 22:05 89 16 12/18/17 21:46 96.8 F L 76 24 131/65 100 Intake and Output 12/18/17 12/19/17 12/19/17 22:59 06:59 14:59 Intake Total 100 Balance 100 Intake: Oral 100 Other: Voiding Method Diaper Diaper # Voids 1 Weight 104.326 kg 107 kg - Constitutional General appearance: mild distress, obese - EENT Eyes: PERRLA Ears: bilateral: normal - Neck Neck: normal ROM - Respiratory Respiratory: bilateral: diminished - Cardiovascular Rhythm: irregularly irregular leg Peripheral Edema: right: 4+, left: 3+ - Gastrointestinal General gastrointestinal: soft - Integumentary Integumentary: normal - Musculoskeletal Musculoskeletal: right sided weakness - Psychiatric Patient has dysphasia although nods appropriately Results CBC & Chem 7: 12/18/17 22:13 12/18/17 22:13 Labs: Abnormal Lab Results - Last 24 Hours (Table) 12/18/17 12/18/1718 Range/Units 22:13 22:13 22:13 Hct 48.0 H (34.0-46.0) % MCV 101.5 H (80.0-100.0) fL MCHC 29.5 L (31.0-37.0) g/dL RDW 17.6 H (11.5-15.5) % PT (9.0-12.0) sec INR (<1.2) BUN 24 H (7-17) mg/dL Glucose 128 H (74-99) mg/dL Plasma Lactic Acid Thang (0.7-2.0) mmol/L Total Bilirubin 2.2 H (0.2-1.3) mg/dL AST 40 H (14-36) U/L ALT 65 H (9-52) U/L Alkaline Phosphatase 136 H (38-126) U/L CK-MB (CK-2) 2.8 H* (0.0-2.4) ng/mL Albumin 3.4 L (3.5-5.0) g/dL 12/18/17 12/18/17 12/19/17 Range/Units 22:13 22:13 04:09 Hct (34.0-46.0) % MCV (80.0-100.0) fL MCHC (31.0-37.0) g/dL RDW (11.5-15.5) % PT 44.5 H (9.0-12.0) sec INR 4.9 H (<1.2) BUN (7-17) mg/dL Glucose (74-99) mg/dL Plasma Lactic Acid Thang 2.2 H* (0.7-2.0) mmol/L Total Bilirubin (0.2-1.3) mg/dL AST (14-36) U/L ALT (9-52) U/L Alkaline Phosphatase (38-126) U/L CK-MB (CK-2) 2.5 H* (0.0-2.4) ng/mL Albumin (3.5-5.0) g/dL 12/19/17 Range/Units 09:28 Hct (34.0-46.0) % MCV (80.0-100.0) fL MCHC (31.0-37.0) g/dL RDW (11.5-15.5) % PT (9.0-12.0) sec INR (<1.2) BUN (7-17) mg/dL Glucose (74-99) mg/dL Plasma Lactic Acid Thang (0.7-2.0) mmol/L Total Bilirubin (0.2-1.3) mg/dL AST (14-36) U/L ALT (9-52) U/L Alkaline Phosphatase (38-126) U/L CK-MB (CK-2) 2.5 H* (0.0-2.4) ng/mL Albumin (3.5-5.0) g/dL Chest x-ray: report reviewed Thrombosis Risk Factor Assmnt - Choose All That Apply Any of the Below Risk Factors Present?: Yes Each Factor Represents 1 point: Abnormal pulmonary function (COPD), Medical pt on bed rest, Obesity (BMI >25), Swollen legs (current) Other Risk Factors: Yes Each Risk Factor Represents 2 Points: Age 61-74 years Other congenital or acquired thrombophilia - If yes, enter type in comment: No Thrombosis Risk Factor Assessment Total Risk Factor Score: 6 Thrombosis Risk Factor Assessment Level: High Risk Assessment and Plan Assessment: Assessment Acute on chronic congestive heart failure systolic with a ejection fraction 45% cardiomyopathy Chronic atrial fibrillation COPD with nicotine use CVA with right-sided weakness and dysphagia GERD Hypertension Hyperlipidemia Osteoarthritis Chronic renal failure Lower extremity edema Plan Continue consultation with cardiology
[2017-12-19] MEDS: SPIRONOLACTONE 25 MG TAB PO SCH (12:09)
[2017-12-19 21:25] LABS: Hemoglobin A1C 7.5 % (4.0-6.0)
[2017-12-19] MEDS: METOPROLOL TARTRATE 25 MG TAB PO SCH (21:27)
[2017-12-20] MEDS: LEVOTHYROXINE 25 MCG TAB PO SCH (06:22)
[2017-12-20 06:55] LABS: Prothrombin Time 68.6 sec (9.0-12.0)
[2017-12-20 06:58] LABS: INR 7.4 (<1.2)
[2017-12-20] MEDS: ALBUTEROL NEBULIZED 2.5 MG/3 ML INHALATION PRN ×2 (07:50→11:24)
[2017-12-20] MEDS: DIGOXIN 250 MCG TAB PO SCH (08:44)
[2017-12-20] MEDS: metFORMIN 500 MG TAB PO SCH (08:44)
[2017-12-20] MEDS: METOPROLOL TARTRATE 50 MG TAB PO SCH (08:45)
[2017-12-20] MEDS: SPIRONOLACTONE 25 MG TAB PO SCH (08:45)
[2017-12-20] MEDS: FUROSEMIDE 10 MG/ML 4 ML VIAL IV SCH ×2 (08:47→21:36)
[2017-12-20 10:55] LABS: Prothrombin Time 68.1 sec (9.0-12.0)
[2017-12-20 11:34] LABS: INR 7.4 (<1.2)
--- NOTE | 2017-12-20 12:04 | P.PN ---
Subjective Patient resting in bed complaining of right lower leg pain. Noted to be edematous and erythemic will consult infectious disease regarding of leg cellulitis. Continues with consultation with cardiology INR up to 7.4 consulted cardiology for reversal if that's with what they want to do Objective - Vital Signs Vital signs: Vital Signs Temp 97.8 F 12/20/17 11:36 Pulse 88 12/20/17 11:36 Resp 18 12/20/17 11:36 BP 105/68 12/20/17 11:36 Pulse Ox 93 L 12/20/17 11:36 Intake & Output 12/19/17 12/20/17 12/20/17 18:59 06:59 18:59 Intake Total 560 70.0 Balance 560 70.0 Weight 108 kg Intake: IV 60.0 Invasive Line 1 30.0 iv 30 Oral 560 10 Other: Voiding Method Diaper Diaper # Voids 2 4 - Constitutional General appearance: Present: mild distress - EENT Eyes: Present: PERRLA Ears: bilateral: normal - Neck Neck: Present: normal ROM - Respiratory Respiratory: bilateral: diminished - Cardiovascular Rhythm: irregularly irregular Abnormal Heart Sounds: Present: systolic murmur - Gastrointestinal General gastrointestinal: Present: soft - Integumentary Integumentary Comment(s): Right lower extremity edematous and erythemic - Musculoskeletal Musculoskeletal: Present: right sided weakness - Psychiatric Psychiatric Comment(s): Patient has expressive dysphasia unable to evaluate orientation - Labs CBC & Chem 7: 12/18/17 22:13 12/18/17 22:13 Labs: Abnormal Lab Results - Last 24 Hours (Table) 12/19/17 12/20/17 12/20/17 Range/Units 04:09 05:56 10:17 PT 68.6 H 68.1 H (9.0-12.0) sec INR 7.4 H* 7.4 H* (<1.2) Hemoglobin A1c 7.5 H (4.0-6.0) % Microbiology - Last 24 Hours (Table) 12/18/17 22:13 Blood Culture - Preliminary Blood No Growth after 24 hours - Imaging and Cardiology Chest x-ray: report reviewed Assessment and Plan Plan: Assessment Acute on chronic congestive heart failure systolic dysfunction ejection fraction 45% Chronic atrial fibrillation Cardiomyopathy COPD stable History of CVA with right-sided weakness dysphasia GERD Hypertension Hyperlipidemia Osteoarthritis Chronic renal failure Right leg cellulitis Diabetes type 2 Plan Continue consultation with cardiology Consultations disease regarding right leg cellulitis
--- NOTE | 2017-12-20 12:08 | P.PN ---
Subjective Progress Note Date: 12/20/17 This is a 67-year-old female with history of previous CVA, chronic atrial fibrillation and also COPD who is now admitted to the hospital with complaints of increasing shortness of breath. Patient has a previous CVA and cannot communicate very well except saying yes or no. Patient presented to the hospital with symptoms of bilateral leg swelling, no overt chest discomfort or shortness of breath. She has known to have cardiomyopathy with an ejection fraction of 45%, BNP level was known to be elevated, however it is chronically elevated. And also has a known history of COPD. She was initiated on IV diuretics. Patient had been on Coumadin for her paroxysmal A. fib, her INR this morning came back at 7.4, it was 4.9 yesterday. We will repeat an INR, if it consistently remains elevated, we will give the dose of vitamin K today. Objective - Vital Signs Vital signs: Vital Signs Temp 97.8 F 12/20/17 11:36 Pulse 88 12/20/17 11:36 Resp 18 12/20/17 11:36 BP 105/68 12/20/17 11:36 Pulse Ox 93 L 12/20/17 11:36 Intake & Output 12/19/17 12/20/17 12/20/17 18:59 06:59 18:59 Intake Total 560 70.0 Balance 560 70.0 Weight 108 kg Intake: IV 60.0 Invasive Line 1 30.0 iv 30 Oral 560 10 Other: Voiding Method Diaper Diaper # Voids 2 4 - Exam PHYSICAL EXAMINATION: HEENT: Head is atraumatic, normocephalic. Pupils equal, round. Neck is supple. There is no elevated jugular venous pressure. HEART EXAMINATION: Heart sounds irregularly irregular, systolic ejection murmur heard S1 and S2 normal. No murmur or gallop heard. CHEST EXAMINATION: Lungs are clear. No chest wall tenderness is noted on palpation or with deep breathing. ABDOMEN: Soft, nontender. Bowel sounds are heard. No organomegaly noted. EXTREMITIES: diminished peripheral pulses with evidence of trace peripheral edema and no calf tenderness noted. NEUROLOGIC patient is awake, alert and oriented. Able to answer yes and no. - Labs CBC & Chem 7: 12/18/17 22:13 12/18/17 22:13 Labs: Abnormal Lab Results - Last 24 Hours (Table) 12/19/17 12/20/1718 Range/Units 04:09 05:56 10:17 PT 68.6 H 68.1 H (9.0-12.0) sec INR 7.4 H* 7.4 H* (<1.2) Hemoglobin A1c 7.5 H (4.0-6.0) % Microbiology - Last 24 Hours (Table) 12/18/17 22:13 Blood Culture - Preliminary Blood No Growth after 24 hours Assessment and Plan Plan: Assessment 1 acute hypoxic respiratory failure secondary to a combination of acute exacerbation of systolic congestive heart failure and exacerbation and COPD improved. 2 chronic atrial fibrillation, rapid ventricular response at a time of admission. 8 better controlled. On beta blockers and digoxin. 3 CHF mild systolic dysfunction and the patient went into acute CHF at a time of admission because of A. fib/RVR. Note that the patient has valvular heart disease with moderate mitral regurgitation and severe mitral stenosis which probably exacerbated atrial fibrillation and CHF in addition. 4 COPD with secondary exacerbation 5 history of CVA with right-sided hemiplegia and expressive aphasia. The patient is essentially bedridden 6 smoking 7 hypertension 8 hyperlipidemia 9 valvular heart disease, in the form of moderate mitral regurgitation and severe mitral stenosis with secondary pulmonary hypertension and the patient is also mild impairment of the LV function 10 mild lactic acidosis, sepsis ruled out. Plan: From cardiology's perspective, we'll continue current medications. Check lytes BUN and creatinine in the morning. DNP note has been reviewed, I agree with a documented findings and plan of care. Patient was seen and examined.
[2017-12-20] MEDS ORDERED: PHYTONADIONE ORAL 5 MG/5 ML ORAL.SYRG PO STA (12:11)
[2017-12-20 14:51] VITALS: BMI 43.5
[2017-12-20] MEDS: METOPROLOL TARTRATE 25 MG TAB PO SCH (21:35)
--- NOTE | 2017-12-20 23:09 | P.CONS ---
History of Present Illness - Reason for Consult Consult date: 12/20/17 - Chief Complaint Swelling right leg - History of Present Illness 67-year-old female who is status post stroke with right hemiplegia and dysarthria presents to Hospital significant pain and swelling erythema to the right lower extremity. Patient status post stroke has the significant flaccid paralysis of right lower extremity as well as right upper extremity. She is not able to communicate well but is not able to state any acute trauma or injury to the right leg. However she has multiple scratch sinclair on both legs , but has the extensive swelling and erythema to the right lower extremity. The patient is not able to relate how or why she has many scratches on her legs dysarthria. She'll denies feeling poorly. There is no significant fever or chills. She however was short of breath at admission which prompted her admission. Review of Systems ROS unobtainable: due to mental status Past Medical History Past Medical History: Atrial Fibrillation, Chest Pain / Angina, Heart Failure, COPD, CVA/TIA, GERD/Reflux, Hyperlipidemia, Hypertension, Osteoarthritis (OA), Pneumonia, Renal Disease Additional Past Medical History / Comment(s): 2002 CVA with R sided weakness arm /leg/contracted R hand and dysphasia, Afib with RVR, cardiac valve disease, DJD , occasional back pain, bronchitis, UTIs, kidney infections, anemia, head injury. 2018 CVA with right side flaccid and dysphagia History of Any Multi-Drug Resistant Organisms: None Reported Past Surgical History: Section, Hernia Repair, Orthopedic Surgery, Tonsillectomy Additional Past Surgical History / Comment(s): Incarcerated umbilical hernia repair/omentum resection, X2, L tibial IM nailing, teeth extractions. Past Anesthesia/Blood Transfusion Reactions: No Reported Reaction Past Psychological History: No Psychological Hx Reported Additional Psychological History / Comment(s): Lives in a senior apartment. Her daughter does help. She is a reformed smoker. No experience. No animals in the home Smoking Status: Current every day smoker Past Alcohol Use History: None Reported Additional Past Alcohol Use History / Comment(s): has smoked off and on since age 14 Past Drug Use History: None Reported - Past Family History Father Family Medical History: No Reported History Additional Family Medical History / Comment(s): FATHER WAS HEALTHY AND LIVED TO BE 96YRS OLD. Mother Family Medical History: Cancer Additional Family Medical History / Comment(s): MOTHER HAD BREAST CANCER. Medications and Allergies Home Medications and Allergies Comment(s): Current Medications Acetaminophen (Tylenol Tab) 650 mg PO Q6HR PRN PRN Reason: Mild Pain or Fever > 100.5 Albuterol Sulfate (Ventolin Nebulized) 2.5 mg INHALATION RT-QID PRN PRN Reason: Shortness Of Breath Last Admin: 12/20/17 11:24 Dose: 2.5 mg Digoxin (Lanoxin) 250 mcg PO DAILY [facility] Last Admin: 12/20/17 08:44 Dose: 250 mcg Furosemide (Lasix) 40 mg IV Q12HR [facility] Last Admin: 12/20/17 21:36 Dose: 40 mg Levothyroxine Sodium (Synthroid) 25 mcg PO DAILY@0630 [facility] Last Admin: 12/20/17 06:22 Dose: 25 mcg Metformin HCl (Glucophage) 500 mg PO DAILY [facility] Last Admin: 12/20/17 08:44 Dose: 500 mg Metoprolol Tartrate (Lopressor) 50 mg PO DAILY [facility] Last Admin: 12/20/17 08:45 Dose: 50 mg Metoprolol Tartrate (Lopressor) 25 mg PO HS [facility] Last Admin: 12/20/17 21:35 Dose: 25 mg Naloxone HCl (Narcan) 0.2 mg IV Q2M PRN PRN Reason: Opioid Reversal Spironolactone (Aldactone) 12.5 mg PO DAILY [facility] Last Admin: 12/20/17 08:45 Dose: 12.5 mg Home Medications Medication Instructions Recorded Confirmed Type Digoxin [Lanoxin] 250 mcg PO DAILY #30 tab 04/27/15 12/18/17 Rx Tiotropium [place] [Spiriva] 1 cap INHALATION RT-DAILY 05/01/17 12/18/17 History Albuterol Nebulized [Ventolin 2.5 mg INHALATION RT-QID PRN 08/17/17 12/18/17 History Nebulized] Metoprolol Tartrate [Lopressor] 50 mg PO DAILY 11/02/17 12/18/17 History Ibuprofen [Motrin] 800 mg PO TID PRN 12/18/17 12/18/17 History Levothyroxine Sodium [Synthroid] 25 mcg PO DAILY 12/18/17 12/18/17 History Warfarin [Coumadin] 5 mg PO Q48H 12/18/17 12/18/17 History Warfarin [Coumadin] 7.5 mg PO Q48H 12/18/17 12/18/17 History metFORMIN HCL [Glucophage] 500 mg PO DAILY 12/18/17 12/18/17 History Allergies Allergy/AdvReac Type Severity Reaction Status Date / Time No Known Allergies Allergy Verified 12/19/17 02:15 Physical Exam Vitals: Vital Signs Temp Pulse Pulse Resp BP Pulse Ox 12/20/17 16:04 97.0 F L 90 18 117/74 93 L 12/20/17 13:40 80 26 H 12/20/17 11:36 97.8 F 88 18 105/68 93 L 12/20/17 11:34 99 16 12/20/17 11:25 108 H 16 12/20/17 08:02 94 16 12/20/17 07:52 97.6 F 94 18 110/74 94 L 12/20/17 07:50 96 16 93 L 12/20/17 03:45 97.2 F L 81 16 102/65 92 L 12/20/17 00:32 92 16 100/65 93 L Intake and Output 12/20/17 12/20/17 12/20/17 06:59 14:59 22:59 Intake Total 620.0 180 Balance 620.0 180 Intake: IV 60.0 Invasive Line 1 30.0 iv 30 Oral 560 180 Other: # Voids 4 2 Weight 108 kg 108 kg 67-year-old female who has obesity, obvious right sided paralysis and dysarthria HEENT: Anicteric conjunctiva are pink and moist nasal mucosa grossly intact without significant lesions, there is no thrush. No oral lesions are seen Neck: The neck is supple without significant lymphadenopathy or thyromegaly. Lungs: Symmetrical air entry is noted, there are basilar crackles few expiratory wheezes no mario bronchial sounds are noted Heart: Regular rate and rhythm with an audible S1-S2, no S3 soft S4. There is no significant murmur click or rub, PMI was nondisplaced. Abdomen: Obese Positive bowel sounds soft and nontender without palpable masses or organomegaly. There was no guarding or rebound. Extremities: The upper extremities have excellent pulses they are symmetric, no significant petechiae or telangiectasia. No splinter hemorrhages were noted. Lower extremities both have some edema but the right leg is considerably more swollen than the left. There is also the significant erythema is present on the foot and lower leg is mildly tender. There is distinct scratches on both lower extremities for which the patient cannot relate etiology. Neuro: She is awake and alert. She responds to her name. With the dysarthria difficult to know any other acute neurological change, has the dense right hemiparesis Results CBC & Chem 7: 12/18/17 22:13 12/18/17 22:13 Labs: Abnormal Lab Results - Last 24 Hours (Table) 12/19/17 12/20/17 12/20/17 Range/Units 04:09 05:56 10:17 PT 68.6 H 68.1 H (9.0-12.0) sec INR 7.4 H* 7.4 H* (<1.2) Hemoglobin A1c 7.5 H (4.0-6.0) % Microbiology - Last 24 Hours (Table) 12/18/17 22:13 Blood Culture - Preliminary Blood No Growth after 24 hours Laboratory Results WBC 9.1 k/uL (3.8-10.6) 12/18/17 22:13 RBC 4.73 m/uL (3.80-5.40) 12/18/17 22:13 Hgb 14.2 gm/dL (11.4-16.0) 12/18/17 22:13 Hct 48.0 % (34.0-46.0) H 12/18/17 22:13 MCV 101.5 fL (80.0-100.0) H 12/18/17 22:13 MCH 30.0 pg (25.0-35.0) 12/18/17 22:13 MCHC 29.5 g/dL (31.0-37.0) L 12/18/17 22:13 RDW 17.6 % (11.5-15.5) H 12/18/17 22:13 Plt Count 245 k/uL (150-450) 12/18/17 22:13 Neutrophils % 79 % 12/18/17 22:13 Lymphocytes % 12 % 12/18/17 22:13 Monocytes % 6 % 12/18/17 22:13 Eosinophils % 1 % 12/18/17 22:13 Basophils % 0 % 12/18/17 22:13 Neutrophils # 7.2 k/uL (1.3-7.7) 12/18/17 22:13 Lymphocytes # 1.1 k/uL (1.0-4.8) 12/18/17 22:13 Monocytes # 0.6 k/uL (0-1.0) 12/18/17 22:13 Eosinophils # 0.1 k/uL (0-0.7) 12/18/17 22:13 Basophils # 0.0 k/uL (0-0.2) 12/18/17 22:13 Hypochromasia Marked 12/18/17 22:13 Anisocytosis Slight 12/18/17 22:13 Macrocytosis Moderate 12/18/17 22:13 PT 68.1 sec (9.0-12.0) H 12/20/17 10:17 INR 7.4 (<1.2) H* 12/20/17 10:17 APTT 28.7 sec (22.0-30.0) 12/18/17 22:13 Sodium 138 mmol/L (137-145) 12/18/17 22:13 Potassium 4.1 mmol/L (3.5-5.1) 12/18/17 22:13 Chloride 103 mmol/L (98-107) 12/18/17 22:13 Carbon Dioxide 27 mmol/L (22-30) 12/18/17 22:13 Anion Gap 8 mmol/L 12/18/17 22:13 BUN 24 mg/dL (7-17) H 12/18/17 22:13 Creatinine 0.70 mg/dL (0.52-1.04) 12/18/17 22:13 Est GFR (CKD-EPI)AfAm >90 (>60 ml/min/1.73 sqM) 12/18/17 22:13 Est GFR (CKD-EPI)NonAf 90 (>60 ml/min/1.73 sqM) 12/18/17 22:13 Glucose 128 mg/dL (74-99) H 12/18/17 22:[address] Glu mg/dL 169 12/19/17 04:09 Hemoglobin A1c 7.5 % (4.0-6.0) H 12/19/17 04:09 Lactic Ac Sepsis Rflx Y 12/18/17 23:08 Plasma Lactic Acid Thang 1.8 mmol/L (0.7-2.0) 12/19/17 02:33 Calcium 9.1 mg/dL (8.4-10.2) 12/18/17 22:13 Magnesium 2.1 mg/dL (1.6-2.3) 12/18/17 22:13 Total Bilirubin 2.2 mg/dL (0.2-1.3) H 12/18/17 22:13 AST 40 U/L (14-36) H 12/18/17 22:13 ALT 65 U/L (9-52) H 12/18/17 22:13 Alkaline Phosphatase 136 U/L (38-126) H 12/18/17 22:13 Total Creatine Kinase 33 U/L (30-135) 12/19/17 09:28 CK-MB (CK-2) 2.5 ng/mL (0.0-2.4) H* 12/19/17 09:28 CK-MB (CK-2) Rel Index 7.6 12/19/17 09:28 Troponin I 0.013 ng/mL (0.000-0.034) 12/19/17 09:28 NT-Pro-B Natriuret Pep 2070 pg/mL 12/18/17 22:13 Total Protein 6.4 g/dL (6.3-8.2) 12/18/17 22:13 Albumi Microbiology 12/18/17 22:13 Blood Blood Culture - Preliminary No Growth after 24 hours n 3.4 g/dL (3.5-5.0) L 12/18/17 22:13 Assessment and Plan (1) Acute on chronic systolic CHF (congestive heart failure), NYHA class 3 Current Visit: Yes Status: Acute Code(s): I50.23 - ACUTE ON CHRONIC SYSTOLIC (CONGESTIVE) HEART FAILURE SNOMED Code(s): 902433143 (2) Cellulitis of right lower extremity Narrative/Plan: 67-year-old female with a history of COPD, congestive heart failure and obesity presents to Hospital feeling quite short of breath. Her presentation is evidence of acute and chronic systolic congestive heart failure and exacerbation of COPD. She's been treated for these illnesses but also has extensive edema right lower extremity much greater than the left. There is also a distinct cellulitis the right lower extremity. This retreated with the Silvadene wrap and antibiotic therapy. Patient's prior culture data is reviewed and there is a history of enterococcus faceium infection and consequently daptomycin will be utilized for the cellulitis. Cultures are in process at this time. She had lactic acidosis admission it appears to multifactorial including the cellulitis of the right lower extremity and the congestive heart failure. Respiratory status appears to be improving already and is being followed by cardiology. She does have Coumadin coagulopathy admission and is being treated. Elevation the limb will be helpful for the edema. Current Visit: Yes Status: Acute Code(s): L03.115 - CELLULITIS OF RIGHT LOWER LIMB SNOMED Code(s): 496391267
[2017-12-21] MEDS: DAPTOmycin 500 MG in SODIUM CHLORIDE 0.9% 50 ML IVPB SCH ×2 (00:32→22:59)
[2017-12-21] MEDS: LEVOTHYROXINE 25 MCG TAB PO SCH (06:22)
[2017-12-21] MEDS: DIGOXIN 250 MCG TAB PO SCH (09:11)
[2017-12-21] MEDS: METOPROLOL TARTRATE 50 MG TAB PO SCH (09:11)
[2017-12-21] MEDS: SPIRONOLACTONE 25 MG TAB PO SCH (09:11)
[2017-12-21] MEDS: metFORMIN 500 MG TAB PO SCH (09:11)
[2017-12-21] MEDS: FUROSEMIDE 10 MG/ML 4 ML VIAL IV SCH (09:12)
--- NOTE | 2017-12-21 15:03 | P.PN ---
Subjective Progress Note Date: 12/21/17 This is a 67-year-old female with history of previous CVA, chronic atrial fibrillation and also COPD who is now admitted to the hospital with complaints of increasing shortness of breath. Patient has a previous CVA and cannot communicate very well except saying yes or no. Patient presented to the hospital with symptoms of bilateral leg swelling, no overt chest discomfort or shortness of breath. She has known to have cardiomyopathy with an ejection fraction of 45%, BNP level was known to be elevated, however it is chronically elevated. And also has a known history of COPD. She was initiated on IV diuretics. Patient had been on Coumadin for her paroxysmal A. fib, her INR this morning came back at 7.4, it was 4.9 yesterday. We will repeat an INR, if it consistently remains elevated, we will give the dose of vitamin K today. 12/21/2017 Patient was seen and examined this morning, but pressure 110/70 with a heart rate in the 70s, 98% on room air. Continues to be in atrial fibrillation. Objective - Vital Signs Vital signs: Vital Signs Temp 96.9 F L 12/21/17 09:10 Pulse 106 H 12/21/17 12:10 Resp 18 12/21/17 12:10 BP 93/63 12/21/17 12:10 Pulse Ox 96 12/21/17 12:10 Intake & Output 12/20/17 12/21/17 12/21/17 18:59 06:59 18:59 Intake Total 800.0 298 Output Total 400 Balance 800.0 -400 298 Weight 108 kg 111 kg Intake: IV 60.0 Invasive Line 1 30.0 iv 30 Oral 740 298 Output: Urine 400 Other: Voiding Method Diaper # Voids 3 1 # Bowel Movements 1 - Exam PHYSICAL EXAMINATION: HEENT: Head is atraumatic, normocephalic. Pupils equal, round. Neck is supple. There is no elevated jugular venous pressure. HEART EXAMINATION: Heart sounds irregularly irregular, systolic ejection murmur heard S1 and S2 normal. No murmur or gallop heard. CHEST EXAMINATION: Lungs are clear. No chest wall tenderness is noted on palpation or with deep breathing. ABDOMEN: Soft, nontender. Bowel sounds are heard. No organomegaly noted. EXTREMITIES: diminished peripheral pulses with evidence of trace peripheral edema and no calf tenderness noted. NEUROLOGIC patient is awake, alert and oriented. Able to answer yes and no. - Labs CBC & Chem 7: 12/18/17 22:13 12/18/17 22:13 Labs: Microbiology - Last 24 Hours (Table) 12/18/17 22:13 Blood Culture - Preliminary Blood No Growth after 48 hours Assessment and Plan Plan: Assessment 1 acute hypoxic respiratory failure secondary to a combination of acute exacerbation of systolic congestive heart failure and exacerbation and COPD improved. 2 chronic atrial fibrillation, rapid ventricular response at a time of admission. 8 better controlled. On beta blockers and digoxin. 3 CHF mild systolic dysfunction and the patient went into acute CHF at a time of admission because of A. fib/RVR. Note that the patient has valvular heart disease with moderate mitral regurgitation and severe mitral stenosis which probably exacerbated atrial fibrillation and CHF in addition. 4 COPD with secondary exacerbation 5 history of CVA with right-sided hemiplegia and expressive aphasia. The patient is essentially bedridden 6 smoking 7 hypertension 8 hyperlipidemia 9 valvular heart disease, in the form of moderate mitral regurgitation and severe mitral stenosis with secondary pulmonary hypertension and the patient is also mild impairment of the LV function 10 mild lactic acidosis, sepsis ruled out. Plan: From cardiology's perspective, we will discontinue the IV Lasix and start oral diuretics today. Repeat chest x-ray. DNP note has been reviewed, I agree with a documented findings and plan of care. Patient was seen and examined.
[2017-12-21 16:20] LABS: INR 1.7 (<1.2); Prothrombin Time 15.8 sec (9.0-12.0)
[2017-12-21 16:22] LABS: Calcium 9.2 mg/dL (8.4-10.2)
[2017-12-21 16:24] LABS: Potassium 5.3 mmol/L (3.5-5.1)
[2017-12-21] MEDS ORDERED: IPRATROPIUM-ALBUTEROL 3 ML NEB INHALATION PRN (18:18)
--- NOTE | 2017-12-21 18:23 | P.PN ---
Subjective Progress Note Date: 12/21/17 Progress note being dictated for Dr. Eddy Interval history: This a 67-year-old female admitted with acute hypoxic respiratory failure secondary to acute CHF exacerbation, acute COPD exacerbation in a patient with history of CVA, right-sided hemiplegia, expressive aphasia and multiple other medical issues. Diuresing well on Lasix IV push with 24-hour I&O reflecting a negative fluid balance. Renal function slowly climbing up, potassium 5.3. Telemetry reporting atrial fibrillation with controlled ventricular rate. INR significantly improved, down to 1.7. Maintained on daptomycin as per infectious disease. Wound care with Silvadene wrap. Afebrile, preliminary blood cultures negative. Significant improvement in hypoxic respiratory failure, maintaining O2 sats in the high 90s on room air. Objective - Vital Signs Vital signs: Vital Signs Temp 96.9 F L 12/21/17 09:10 Pulse 106 H 12/21/17 12:10 Resp 18 12/21/17 12:10 BP 93/63 12/21/17 12:10 Pulse Ox 96 12/21/17 12:10 Intake & Output 12/20/17 12/21/17 12/21/17 18:59 06:59 18:59 Intake Total 800.0 298 Output Total 400 Balance 800.0 -400 298 Weight 108 kg 111 kg Intake: IV 60.0 Invasive Line 1 30.0 iv 30 Oral 740 298 Output: Urine 400 Other: Voiding Method Diaper # Voids 3 1 # Bowel Movements 1 - Exam PHYSICAL EXAM: VITAL SIGNS: [As above] GENERAL: Sitting up in a chair, converses shaking head and answering "yes "and "no" HEENT: Conjunctivae normal. eyes normal. NECK: No JVD. No thyroid enlargement. No LNs CARDIOVASCULAR: S1, S2 muffled. Irregular with controlled ventricular rate, positive systolic murmur RESPIRATION: Breath sounds diminished in the bases. No rhonchi or crackles. ABDOMEN: Obese,Soft, nontender . No guarding. no masses palpable. Bowel sounds heard. LEGS: Positive edema with right greater than left,erythema with scratches. PSYCHIATRY: Alert and oriented -3, mood and affect normal. NERVOUS SYSTEM: Alert, dysarthric, right hemiparesis, responds to her name. - Labs CBC & Chem 7: 12/18/17 22:13 12/21/17 15:32 Labs: Microbiology - Last 24 Hours (Table) 12/18/17 22:13 Blood Culture - Preliminary Blood No Growth after 48 hours Assessment and Plan Assessment: 1. Acute hypoxic respiratory failure secondary to acute CHF exacerbation, systolic dysfunction, 2. Right leg cellulitis, prior Holter. History of enterococcus faecium, 3. Chronic atrial fibrillation with controlled ventricular rate, subtherapeutic INR on admission, improved 4. Cardiomyopathy 5. COPD 6. History of CVA with residual right-sided hemiplegia, expressive aphasia 7. Gastroesophageal reflux disease 8. Hypertension 9. Ongoing nicotine abuse 10. Aortic stenosis, severe pulmonary hypertension Plan: Continue on current medication regime ,monitoring and symptomatic treatment. Continue IV antibiotics and wound care as per infectious disease. Close monitoring of electrolytes, PT/INR With repeat labs ordered for a.m. Low potassium diet, renal function worsening, K up to 5.3. Lasix converted to oral as per cardiology. Pending tomorrow's, potassium, renal function, may need to hold Aldactone. Chest x-ray pending. Smoking cessation readdressed. The impression and plan of care has been dictated as directed. : I performed a history and examination of this patient, discussed the same with the dictator. I agree with the dictator's note ,documented as a scribe. Any additional findings or plans will be noted.
--- NOTE | 2017-12-21 18:29 | XR ---
EXAMINATION TYPE: XR chest 2V DATE OF EXAM: 12/21/2017 COMPARISON: 12/18/2017 HISTORY: Difficulty breathing TECHNIQUE: Frontal and lateral views of the chest are obtained. FINDINGS: Heart is enlarged. There is minimal pulmonary vascular redistribution. There is slight faiza nting of right costophrenic angle. There are chest leads. There is no pulmonary consolidation. IMPRESSION: There is slight improvement in the pulmonary congestion compared to last exam. Small rig ht pleural effusion. Moderate cardiomegaly.
[2017-12-21] MEDS: IPRATROPIUM-ALBUTEROL 3 ML NEB INHALATION SCH (19:36)
[2017-12-21] MEDS: SYMBICORT 160-4.5 MCG INHALER INHALATION SCH (19:37)
[2017-12-21] MEDS: PANTOPRAZOLE 40 MG/10 ML VIAL IVP SCH (20:17)
[2017-12-21] MEDS: METOPROLOL TARTRATE 25 MG TAB PO SCH (20:17)
[2017-12-21 20:45] LABS: Glucose,Whole Blood 123 mg/dL (75-99)
[2017-12-21] MEDS: INSULIN ASPART 100 UNIT/ML 1 ML 10 ML VIAL SQ SCH (21:41)
[2017-12-22 05:56] LABS: Glucose,Whole Blood 97 mg/dL (75-99)
[2017-12-22] MEDS: INSULIN ASPART 100 UNIT/ML 1 ML 10 ML VIAL SQ SCH ×4 (06:02→20:24)
[2017-12-22] MEDS: LEVOTHYROXINE 25 MCG TAB PO SCH (06:05)
[2017-12-22 06:25] LABS: INR 1.5 (<1.2); Prothrombin Time 13.8 sec (9.0-12.0)
[2017-12-22 06:32] LABS: Calcium 9.5 mg/dL (8.4-10.2); Potassium 4.3 mmol/L (3.5-5.1)
[2017-12-22] MEDS: IPRATROPIUM-ALBUTEROL 3 ML NEB INHALATION SCH ×4 (08:15→20:26)
[2017-12-22] MEDS: SYMBICORT 160-4.5 MCG INHALER INHALATION SCH ×2 (08:15→20:26)
[2017-12-22] MEDS: PANTOPRAZOLE 40 MG/10 ML VIAL IVP SCH (09:18)
[2017-12-22] MEDS: SPIRONOLACTONE 25 MG TAB PO SCH (09:18)
[2017-12-22] MEDS: metFORMIN 500 MG TAB PO SCH (09:18)
[2017-12-22] MEDS: DIGOXIN 250 MCG TAB PO SCH (09:18)
[2017-12-22] MEDS: METOPROLOL TARTRATE 50 MG TAB PO SCH (09:19)
[2017-12-22 11:47] LABS: Glucose,Whole Blood 134 mg/dL (75-99)
[2017-12-22 17:01] LABS: Glucose,Whole Blood 129 mg/dL (75-99)
--- NOTE | 2017-12-22 17:54 | PN ---
PROGRESS NOTE DATE OF SERVICE: 12/22/2017 I am covering for Dr. Du Lancaster. This 67-year-old woman was admitted with shortness of breath, cough, CHF and chronic obstructive pulmonary disease acute exacerbation being closely monitored at this time. The patient also had right leg cellulitis. The patient has chronic atrial fibrillation. The patient is on supplemental oxygen. PAST MEDICAL HISTORY: Reviewed. REVIEW OF SYSTEMS: CARDIOVASCULAR: No angina, palpitations. RESPIRATORY: As mentioned earlier. GI: No nausea or vomiting. : No dysuria. NERVOUS: Diffusely weak. CURRENT MEDICATIONS: Reviewed, include: 1. Tylenol 650 every 6 hours p.r.n. 2. DuoNeb q.i.d. and p.r.n. 3. Symbicort 39008/4.5 two puffs b.i.d. 4. Daptomycin 500 mg daily. 5. Lanoxin 250 mg p.o. daily. 6. NovoLog a.c. and at bedtime scale. 7. Synthroid 25 mcg p.o. daily. 8. Glucophage 500 mg p.o. daily. 9. Lopressor 50 mg p.o. daily. 10.Lopressor 25 mg q.h.s. 11.Narcan 0.2 q.2h p.r.n. 12.Protonix 40 mg IV daily. 13.Sulfadiazine local application. 14.Aldactone 12.5 mg p.o. daily. PHYSICAL EXAM: Patient is alert, oriented x3. Pulse is 73, blood pressure 111/71, respirations 16, temperature 97.4, pulse ox 94% on room air. HEENT: Conjunctivae normal. Oral mucosa moist. NECK: Jugular venous distention at the root. CARDIOVASCULAR: S1, S2 muffled. Ejection systolic murmur. RESPIRATORY: Breath sounds diminished in the bases. A few scattered rhonchi and crackles. ABDOMEN: Soft, nontender. LEGS: Cellulitis and edema. NERVOUS SYSTEM: No focal deficits. Mild diffuse weakness. LAB INVESTIGATION: Sodium is 137, potassium 4.3 and creatinine is 1. INR improved to 1.5. ASSESSMENT: 1. Shortness of breath, multifactorial, congestive heart failure acute exacerbation with acute on chronic systolic dysfunction, as well as chronic obstructive pulmonary disease acute exacerbation with acute hypoxic respiratory failure. 2. Right leg cellulitis with Enterococcus faecalis. 3. Chronic atrial fibrillation with a controlled ventricular rate. 4. Fluctuating INR with Coumadin coagulopathy. 5. Cardiomyopathy. 6. History of chronic obstructive pulmonary disease. 7. 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 8. Aphasia. 9. Gastroesophageal reflux disease. 10.Hypertension. 11.Ongoing nicotine dependence. 12.Aortic stenosis with severe pulmonary hypertension. RECOMMENDATIONS AND DISCUSSION: Recommend to continue current medical management and symptomatic treatment. Continue with current medications. Continue with the daptomycin. Continue with the local treatment and with digoxin. Continue the rest of medications. The patient was on Coumadin 7.5 and 5 mg q.48 hours. I recommend to restart the home dose and continue to monitor. I would also recommend a daily PT/INR. Otherwise, continue the rest of the medications. Prognosis guarded because of multiple complex medical issues and further recommendations to follow. MMPHOENIXL / IJN: [id number] /
[2017-12-22] MEDS ORDERED: WARFARIN 5 MG TAB PO SCH (18:00)
[2017-12-22] MEDS: METOPROLOL TARTRATE 25 MG TAB PO SCH (20:17)
[2017-12-22 20:22] LABS: Glucose,Whole Blood 148 mg/dL (75-99)
[2017-12-22 20:40] VITALS: RESP 18
[2017-12-22] MEDS: DAPTOmycin 500 MG in SODIUM CHLORIDE 0.9% 50 ML IVPB SCH (22:43)
[2017-12-23 05:50] LABS: Glucose,Whole Blood 98 mg/dL (75-99)
[2017-12-23] MEDS: INSULIN ASPART 100 UNIT/ML 1 ML 10 ML VIAL SQ SCH ×2 (06:01→12:05)
[2017-12-23] MEDS: LEVOTHYROXINE 25 MCG TAB PO SCH (06:02)
[2017-12-23 06:45] LABS: INR 1.3 (<1.2); Prothrombin Time 12.7 sec (9.0-12.0)
[2017-12-23] MEDS: IPRATROPIUM-ALBUTEROL 3 ML NEB INHALATION SCH ×2 (07:27→11:05)
[2017-12-23] MEDS: SYMBICORT 160-4.5 MCG INHALER INHALATION SCH (07:27)
[2017-12-23 08:33] VITALS: PULSE 75
[2017-12-23] MEDS: PANTOPRAZOLE 40 MG/10 ML VIAL IVP SCH (08:53)
[2017-12-23] MEDS: metFORMIN 500 MG TAB PO SCH (08:53)
[2017-12-23] MEDS: DIGOXIN 250 MCG TAB PO SCH (08:53)
[2017-12-23] MEDS: METOPROLOL TARTRATE 50 MG TAB PO SCH (08:53)
[2017-12-23] MEDS: SPIRONOLACTONE 25 MG TAB PO SCH (08:53)
[2017-12-23 11:54] LABS: Glucose,Whole Blood 101 mg/dL (75-99)
[2017-12-23 13:03] VITALS: BP 105/64; TEMP 97.5
[2017-12-23] MEDS ORDERED: WARFARIN 7.5 MG TAB PO SCH (18:00)
--- NOTE | 2017-12-23 18:43 | PN ---
PROGRESS NOTE DATE OF SERVICE: 12/23/2017. REASON FOR FOLLOWUP: Right lower extremity cellulitis and discharge antibiotic determination. HISTORY OF PRESENT ILLNESS: The patient is a 67-year-old female who has presented to [facility] a few days ago on 12/18/2017. Her main symptom has been increasing shortness of breath. Apparently, that was getting worse for 24 hours prior to presentation to hospital. EMS was called and noted the patient to be hypoxic. Subsequently the patient has been brought into the hospital and has been diagnosed with acute on chronic congestive heart failure along with COPD in patient who has atrial fibrillation with RVR. She was noted to have right lower extremity swelling and redness and concern for possible cellulitis. She was evaluated by Dr. Cazares on 12/20/2018 and has been treated with IV daptomycin. The patient still had been cleared for discharge per Cardiology and the discharging team requested Infectious Disease evaluation for discharge antibiotic. The patient has been afebrile during this hospital stay. The patient breathing has improved. Denies having any chest pain or shortness of breath. No abdominal pain. The right leg swelling and redness has decreased in intensity and currently denies any pain in the right leg area. No open wound or any drainage. REVIEW OF SYSTEMS: Positive points have been mentioned in HPI. Rest of systems has been negative. PAST MEDICAL AND SURGICAL HISTORY: Were reviewed. ALLERGIES: No known drug allergies. MEDICATION: Reviewed. The patient is currently on daptomycin 500 mg daily. EXAMINATION: Blood pressure is 105/54 with a pulse of 75. Temperature 97.5. She is 92% on room air. General description is an elderly female up in the bed in no distress. HEENT EXAMINATION: No pallor or scleral icterus. LUNGS: Unlabored breathing with decreased breath sounds. No wheeze. HEART: S1, S2. Regular rate and rhythm. ABDOMEN: Soft, no tenderness. Right leg did have minimal erythema. No significant swelling. She noticed to have some bluish discoloration and cold feet though. NEUROLOGICAL: Patient is awake, alert, oriented x3. Mood and affect normal. LABS: BUN of 14, creatinine 1.0. White count has been normal. Lactic acid was 2.2 on admission down to 1.8. DIAGNOSTIC IMPRESSION AND PLAN: Patient admitted to hospital with increasing shortness of breath in a patient who did have underlying atrial fibrillation with RVR and possible fluid overload being managed by Cardiology in a patient who did have some problems with right lower extremity cellulitis and the patient's underlying fluid overload could be more likely a streptococcal cellulitis. Clinically doubt MRSA or VRE. PLAN: 1. She will get a dose of daptomycin, now. After which she will get a 1 week course of oral Keflex 500 mg every 8 hours. Her INR will be monitored closely while on antibiotic. 2. Advise no application of the Heraclio wrap as the patient seemed to have cold feet and she needs to be evaluated in outpatient setting with arterial Doppler to make sure no evidence of PID. Will explain this to family at the bedside. All their questions were answered. MMODL / IJN: [id number] /
--- NOTE | 2017-12-23 23:22 | DS ---
DISCHARGE SUMMARY DATE OF SERVICE: 12/23/2017. FINAL DIAGNOSES: 1. Shortness of breath, multifactorial, possibly congestive heart failure acute exacerbation with acute on chronic systolic dysfunction, as well as chronic obstructive pulmonary disease exacerbation with acute hypoxic respiratory failure. 2. Right leg cellulitis with Enterococcus faecalis. 3. Chronic atrial fibrillation with controlled ventricular rate. 4. Fluctuating INR with Coumadin coagulopathy. 5. Cardiomyopathy. 6. History of chronic obstructive pulmonary disease. 7. History of cerebrovascular accident with severe right-sided hemiplegia. 8. Aphagia. 9. Gastroesophageal reflux disease. 10.Hypertension. 11.Ongoing nicotine dependence. 12.Aortic stenosis. 13.Severe pulmonary hypertension. DISCHARGE CONDITION: The patient is discharged in stable condition with guarded prognosis. TOTAL TIME TAKEN: 35 minutes. HISTORY OF PRESENT ILLNESS: This 67-year-old woman with a past history of multiple medical problems, being followed by Dr. Du Lancaster in the outpatient setting, was admitted with shortness of breath which is multifactorial. Patient also had multiple other medical problems including cellulitis. The patient was treated with antibiotics. The patient improved significantly. The patient's care keen on going home. Cardiology saw the patient. On exam, vital signs are stable. Cardiovascular S1, S2. Abdomen soft. No focal deficits. DISCHARGE INSTRUCTIONS: 1. Cardiac diet. 2. Activity limited. FOLLOWUP: Followup with Dr. Du Lancaster in 2 to 3 days. Follow up with Cardiology as recommended. MEDICATIONS: 1. Albuterol 2.5 q.i.d. p.r.n. 2. Motrin 800 mg t.i.d. p.r.n. 3. Synthroid 325 mcg p.o. daily. 4. Glucophage 500 mg p.o. daily. 5. Lopressor 50 mg p.o. daily. 6. Spiriva 1 puff daily. 7. Coumadin 5 and 7.2 mg every 48h hours. Monitor PT/INR closely. 8. Tylenol p.r.n. 9. Symbicort 4.5 two puffs b.i.d. 10.Lanoxin 250 mcg p.o. daily. 11.Lopressor 25 mg at bedtime. 12.Aldactone 12.5 mg p.o. daily. Monitor CBC and BMP closely in the outpatient setting. Once again, the patient will be discharged in stable condition with guarded prognosis. MMODL / IJN: [id number] /
== END 2017-12-23 16:46 | disposition home or self-care (01) | DRG 291 ==
LOC: EC 21:35 → 6SEL 12-19 00:14
PROVIDERS: ADMIT Family Medicine; ATTEND Family Medicine
DX: I13.0 Hypertensive heart and chronic kidney disease with heart failure and stage 1 through stage 4 chronic kidney disease, or unspecified chronic kidney disease (principal); J96.01 Acute respiratory failure with hypoxia; I50.23 Acute on chronic systolic (congestive) heart failure; L03.115 Cellulitis of right lower limb; J44.1 Chronic obstructive pulmonary disease with (acute) exacerbation; I69.351 Hemiplegia and hemiparesis following cerebral infarction affecting right dominant side; Z68.41 Body mass index [BMI] 40.0-44.9, adult; E87.2 Acidosis; E66.9 Obesity, unspecified; N18.9 Chronic kidney disease, unspecified; B95.2 Enterococcus as the cause of diseases classified elsewhere; I48.2 Chronic atrial fibrillation; K21.9 Gastro-esophageal reflux disease without esophagitis; I35.0 Nonrheumatic aortic (valve) stenosis; R13.10 Dysphagia, unspecified; E11.22 Type 2 diabetes mellitus with diabetic chronic kidney disease; E78.5 Hyperlipidemia, unspecified; F17.200 Nicotine dependence, unspecified, uncomplicated; I27.29 Other secondary pulmonary hypertension; M19.90 Unspecified osteoarthritis, unspecified site; I05.2 Rheumatic mitral stenosis with insufficiency; I42.9 Cardiomyopathy, unspecified; R79.1 Abnormal coagulation profile; I69.321 Dysphasia following cerebral infarction; Z79.01 Long term (current) use of anticoagulants; Z79.84 Long term (current) use of oral hypoglycemic drugs; Z79.899 Other long term (current) drug therapy; I69.391 Dysphagia following cerebral infarction; I69.320 Aphasia following cerebral infarction; Z74.01 Bed confinement status; Z80.3 Family history of malignant neoplasm of breast
CPT/HCPCS: 36415; 71046; 80048; 80053; 82550; 82553; 83036; 83605; 83735; 83880; 84484; 85025; 85610; 85730; 87040; 93005; 94640; 94760; 96374; 96375; 99285

== ENCOUNTER 2017-12-29 12:07 | Inpatient (IN) | payer MEDICARE ==
[2017-12-29] MEDS ORDERED: ALBUTEROL NEBULIZED 2.5 MG/3 ML INHALATION STA (12:13)
[2017-12-29] MEDS ORDERED: predniSONE 20 MG TAB PO STA (12:13)
[2017-12-29] MEDS ORDERED: IPRATROPIUM 0.5 MG/2.5 ML NEBU INHALATION STA (12:13)
[2017-12-29] MEDS ORDERED: FUROSEMIDE 10 MG/ML 4 ML VIAL IV STA (12:13)
[2017-12-29] MEDS ORDERED: KETOROLAC 60 MG/2 ML VIAL IVP STA (12:14)
--- NOTE | 2017-12-29 12:19 | ED ---
General Adult HPI - General Stated complaint: SOB Time Seen by Provider: 12/29/17 12:07 Source: RN notes reviewed - History of Present Illness Initial comments: This is a 67-year-old female presents to the emergency with past medical history significant for COPD congestive heart failure and a right-sided stroke with residual deficit on the right leg and arm. Patient comes in today for difficulty breathing and back pain. Patient states his been getting worse over the last few days. Patient states the back pain is chronic but it seems to have been exacerbated the last couple of days. According to the the patient has been getting weaker and weaker as far as trying to help transfer herself out of bed but she is so inactive that she strength in the left side of the body because she spends most of her day and according to the . Patient's had no fever or chills patient has had no chest pain. There been no palpitations. Patient denies abdominal pain patient denies nausea vomiting or diarrhea. Patient denies any significant cough. Patient's legs are more edematous according to the and the left one has some redness that is a little worse than normal. - Related Data Home Medications Medication Instructions Recorded Confirmed Tiotropium [place] [Spiriva] 1 cap INHALATION RT-DAILY 05/01/17 12/29/17 Albuterol Nebulized [Ventolin 2.5 mg INHALATION RT-QID PRN 08/17/17 12/29/17 Nebulized] Metoprolol Tartrate [Lopressor] 50 mg PO DAILY 11/02/17 12/29/17 Ibuprofen [Motrin] 800 mg PO TID PRN 12/18/17 12/29/17 Levothyroxine Sodium [Synthroid] 25 mcg PO DAILY 12/18/17 12/29/17 Warfarin [Coumadin] 5 mg PO Q48H 12/18/17 12/29/17 Warfarin [Coumadin] 7.5 mg PO Q48H 12/18/17 12/29/17 metFORMIN HCL [Glucophage] 500 mg PO DAILY 12/18/17 12/29/17 Furosemide [Lasix] 20 mg PO DAILY 12/29/17 12/29/17 Previous Rx's Medication Instructions Recorded Digoxin [Lanoxin] 250 mcg PO DAILY #30 tab 04/27/15 Acetaminophen Tab [Tylenol] 650 mg PO Q6HR PRN tab 12/23/17 Budesonide-Formot 160-4.5 Mcg 2 puff INHALATION RT-BID #1 puff 12/23/17 [Symbicort 160-4.5 Mcg Inhaler] Cephalexin [Keflex] 500 mg PO Q8HR #21 cap 12/23/17 Metoprolol Tartrate [Lopressor] 25 mg PO HS #30 tab 12/23/17 Spironolactone [Aldactone] 12.5 mg PO DAILY #30 tab 12/23/17 Allergies Allergy/AdvReac Type Severity Reaction Status Date / Time No Known Allergies Allergy Verified 12/29/17 12:20 Review of Systems ROS Statement: Those systems with pertinent positive or pertinent negative responses have been documented in the HPI. ROS Other: All systems not noted in ROS Statement are negative. Past Medical History Past Medical History: Atrial Fibrillation, Chest Pain / Angina, Heart Failure, COPD, CVA/TIA, GERD/Reflux, Hyperlipidemia, Hypertension, Osteoarthritis (OA), Pneumonia, Renal Disease Additional Past Medical History / Comment(s): 2001 CVA with R sided weakness arm /leg/contracted R hand and dysphasia, Afib with RVR, cardiac valve disease, DJD , occasional back pain, bronchitis, UTIs, kidney infections, anemia, head injury. 2018 CVA with right side flaccid and dysphagia History of Any Multi-Drug Resistant Organisms: None Reported Past Surgical History: Section, Hernia Repair, Orthopedic Surgery, Tonsillectomy Additional Past Surgical History / Comment(s): Incarcerated umbilical hernia repair/omentum resection, X2, L tibial IM nailing, teeth extractions. Past Anesthesia/Blood Transfusion Reactions: No Reported Reaction Past Psychological History: No Psychological Hx Reported Additional Psychological History / Comment(s): Lives in a senior apartment. Her daughter does help. She is a reformed smoker. No experience. No animals in the home Smoking Status: Current every day smoker Past Alcohol Use History: None Reported Additional Past Alcohol Use History / Comment(s): has smoked off and on since age 14 Past Drug Use History: None Reported - Past Family History Father Family Medical History: No Reported History Additional Family Medical History / Comment(s): FATHER WAS HEALTHY AND LIVED TO BE 96YRS OLD. Mother Family Medical History: Cancer Additional Family Medical History / Comment(s): MOTHER HAD BREAST CANCER. General Exam - General Exam Comments Initial Comments: GENERAL: Patient is well-developed and well-nourished. Patient is nontoxic and well- hydrated and is in mild distress. ENT: Neck is soft and supple. No significant lymphadenopathy is noted. Oropharynx is clear. Moist mucous membranes. Neck has full range of motion without eliciting any pain. EYES: The sclera were anicteric and conjunctiva were pink and moist. Extraocular movements were intact and pupils were equal round and reactive to light. Eyelids were unremarkable. PULMONARY: Patient has crackles in both bases and some expiratory wheezing bilaterally CARDIOVASCULAR: There is a regular rate and rhythm without any murmurs gallops or rubs. ABDOMEN: Soft and nontender with normal bowel sounds. No palpable organomegaly was noted. There is no palpable pulsatile mass. SKIN: Skin is clear with no lesions or rashes and otherwise unremarkable. NEUROLOGIC: Patient is alert and oriented x3. Cranial nerves II through XII are grossly intact. Patient has paralysis of the right upper and lower extremity MUSCULOSKELETAL: Normal extremities with adequate strength and full range of motion. Patient has 2+ edema bilaterally and some circumferential erythema on the left lower leg. LYMPHATICS: No significant lymphadenopathy is noted PSYCHIATRIC: Normal psychiatric evaluation. Normal interpersonal interactions appears functionally intact in deals appropriately with others. No signs of depression. No signs of anxiety. Course Vital Signs 12/29/17 12/29/17 12/29/17 12:10 12:23 12:38 Temperature 97 F L Pulse Rate 118 H 114 H Respiratory 24 25 H Rate Blood Pressure 101/71 O2 Sat by Pulse 96 Oximetry 12/29/17 12/29/17 12:53 14:00 Temperature Pulse Rate 119 H 113 H Respiratory 20 Rate Blood Pressure 108/72 O2 Sat by Pulse 99 Oximetry Medical Decision Making - Medical Decision Making EKG shows atrial flutter with with a variable AV block at 111 bpm QRS is 96 Q-T intervals 286 QTC is 388. Patient's EKG shows no ST segment elevation or depression or T wave abnormalities are noted. Patient has similar findings on old EKG Chest x-ray shows cardiomegaly but no signs of pulmonary edema at this time. Patient received multiple breathing treatments in the emergency department plus steroids patient states that seemed to help her pain considerably. Patient also stated that the Toradol helped her back pain considerably. I spoke with [facility] I admitted the patient I wrote admitting orders - Lab Data Result diagrams: 12/29/17 12:40 12/29/17 12:40 Lab Results 12/29/17 12/29/17 12/29/17 Range/Units 12:40 12:40 12:40 WBC 10.7 H (3.8-10.6) k/uL RBC 4.59 (3.80-5.40) m/uL Hgb 13.7 (11.4-16.0) gm/dL Hct 46.1 H (34.0-46.0) % MCV 100.4 H (80.0-100.0) fL MCH 29.8 (25.0-35.0) pg MCHC 29.6 L (31.0-37.0) g/dL RDW 16.8 H (11.5-15.5) % Plt Count 233 (150-450) k/uL Neutrophils % 82 % Lymphocytes % 9 % Monocytes % 7 % Eosinophils % 1 % Basophils % 0 % Neutrophils # 8.8 H (1.3-7.7) k/uL Lymphocytes # 1.0 (1.0-4.8) k/uL Monocytes # 0.7 (0-1.0) k/uL Eosinophils # 0.1 (0-0.7) k/uL Basophils # 0.0 (0-0.2) k/uL Hypochromasia Marked Anisocytosis Slight Macrocytosis Slight PT (9.0-12.0) sec INR (<1.2) APTT (22.0-30.0) sec Sodium 139 (137-145) mmol/L Potassium 4.6 (3.5-5.1) mmol/L Chloride 98 (98-107) mmol/L Carbon Dioxide 31 H (22-30) mmol/L Anion Gap 10 mmol/L BUN 24 H (7-17) mg/dL Creatinine 0.91 (0.52-1.04) mg/dL Est GFR (CKD-EPI)AfAm 76 (>60 ml/min/1.73 sqM) Est GFR (CKD-EPI)NonAf 65 (>60 ml/min/1.73 sqM) Glucose 177 H (74-99) mg/dL Calcium 9.8 (8.4-10.2) mg/dL Magnesium 2.2 (1.6-2.3) mg/dL Total Bilirubin 2.6 H (0.2-1.3) mg/dL AST 27 (14-36) U/L ALT 46 (9-52) U/L Alkaline Phosphatase 117 (38-126) U/L Total Creatine Kinase 33 (30-135) U/L CK-MB (CK-2) 2.3 (0.0-2.4) ng/mL CK-MB (CK-2) Rel Index 7.0 Troponin I 0.018 (0.000-0.034) ng/mL NT-Pro-B Natriuret Pep pg/mL Total Protein 6.3 (6.3-8.2) g/dL Albumin 3.4 L (3.5-5.0) g/dL 12/29/17 12/29/17 Range/Units 12:40 12:40 WBC (3.8-10.6) k/uL RBC (3.80-5.40) m/uL Hgb (11.4-16.0) gm/dL Hct (34.0-46.0) % MCV (80.0-100.0) fL MCH (25.0-35.0) pg MCHC (31.0-37.0) g/dL RDW (11.5-15.5) % Plt Count (150-450) k/uL Neutrophils % % Lymphocytes % % Monocytes % % Eosinophils % % Basophils % % Neutrophils # (1.3-7.7) k/uL Lymphocytes # (1.0-4.8) k/uL Monocytes # (0-1.0) k/uL Eosinophils # (0-0.7) k/uL Basophils # (0-0.2) k/uL Hypochromasia Anisocytosis Macrocytosis PT 21.9 H (9.0-12.0) sec INR 2.4 H (<1.2) APTT 26.1 (22.0-30.0) sec Sodium (137-145) mmol/L Potassium (3.5-5.1) mmol/L Chloride (98-107) mmol/L Carbon Dioxide (22-30) mmol/L Anion Gap mmol/L BUN (7-17) mg/dL Creatinine (0.52-1.04) mg/dL Est GFR (CKD-EPI)AfAm (>60 ml/min/1.73 sqM) Est GFR (CKD-EPI)NonAf (>60 ml/min/1.73 sqM) Glucose (74-99) mg/dL Calcium (8.4-10.2) mg/dL Magnesium (1.6-2.3) mg/dL Total Bilirubin (0.2-1.3) mg/dL AST (14-36) U/L ALT (9-52) U/L Alkaline Phosphatase (38-126) U/L Total Creatine Kinase (30-135) U/L CK-MB (CK-2) (0.0-2.4) ng/mL CK-MB (CK-2) Rel Index Troponin I (0.000-0.034) ng/mL NT-Pro-B Natriuret Pep 2370 pg/mL Total Protein (6.3-8.2) g/dL Albumin (3.5-5.0) g/dL Disposition Clinical Impression: COPD exacerbation Disposition: ADMITTED IP TO THIS HOSP Referrals: Du Lancaster MD [Primary Care Provider] - 1-2 days Time of Disposition: 15:04
[2017-12-29 12:56] LABS: Anisocytosis Slight; Basophils % (A) 0 %; Eosinophils # (A) 0.1 k/uL (0-0.7); Eosinophils % (A) 1 %; HCT 46.1 % (34.0-46.0); HGB 13.7 gm/dL (11.4-16.0); Hypochromasia Marked; Lymphocytes % (A) 9 %; MCH 29.8 pg (25.0-35.0); MCHC 29.6 g/dL (31.0-37.0); MCV 100.4 fL (80.0-100.0); Macrocytosis Slight; Mean Platelet Volume 7.9; Monocytes # (A) 0.7 k/uL (0-1.0); Monocytes % (A) 7 %; Neutrophils # (A) 8.8 k/uL (1.3-7.7); Neutrophils % (A) 82 %; Platelet Count 233 k/uL (150-450); RBC 4.59 m/uL (3.80-5.40); RDW 16.8 % (11.5-15.5); WBC 10.7 k/uL (3.8-10.6)
[2017-12-29 13:05] LABS: Albumin 3.4 g/dL (3.5-5.0); Calcium 9.8 mg/dL (8.4-10.2); Magnesium 2.2 mg/dL (1.6-2.3); Potassium 4.6 mmol/L (3.5-5.1); Total Bilirubin 2.6 mg/dL (0.2-1.3); Total Protein 6.3 g/dL (6.3-8.2)
[2017-12-29 13:14] LABS: INR 2.4 (<1.2)
[2017-12-29 13:15] LABS: Partial Thromboplastin Time 26.1 sec (22.0-30.0); Prothrombin Time 21.9 sec (9.0-12.0)
[2017-12-29 13:29] LABS: Creatine Kinase MB 2.3 ng/mL (0.0-2.4); Troponin I 0.018 ng/mL (0.000-0.034)
--- NOTE | 2017-12-29 14:06 | XR ---
EXAMINATION TYPE: XR chest 2V DATE OF EXAM: 12/29/2017 HISTORY: difficulty breathing. REFERENCE: Previous study dated 12/21/2017. FINDINGS: There is multichamber cardiac enlargement. Pleural effusion appears to have resolved on the left. The lungs are clear. IMPRESSION: MULTICHAMBER CARDIAC ENLARGEMENT.
--- NOTE | 2017-12-29 14:41 | US ---
EXAMINATION TYPE: US venous doppler duplex LE LT DATE OF EXAM: 12/29/2017 2:28 PM COMPARISON: US CLINICAL HISTORY: Pain. Edema, left lower leg redness SIDE PERFORMED: Left TECHNIQUE: The lower extremity deep venous system is examined utilizing real time linear array sonog joaquin with graded compression, doppler sonography and color-flow sonography. VESSELS IMAGED: External Iliac Vein (EIV) Common Femoral Vein Deep Femoral Vein Greater Saphenous Vein * Femoral Vein Popliteal Vein Proximal Calf Veins (* superficial vessels) Additional color images as patient was unable to tolerate compression imaging. Exam limited by excess dunia edema. Left Leg: Negative for DVT IMPRESSION: 1. Left lower extremity negative for deep venous thrombosis.
[2017-12-29] MEDS ORDERED: IPRATROPIUM-ALBUTEROL 3 ML NEB INHALATION PRN (15:04)
[2017-12-29] MEDS ORDERED: ACETAMINOPHEN TAB 325 MG TAB PO PRN (16:18)
[2017-12-29] MEDS ORDERED: IBUPROFEN 800 MG TAB PO PRN (16:18)
[2017-12-29] MEDS ORDERED: HYDROcodone/APAP 5-325MG 1 EACH TAB PO PRN (16:20)
[2017-12-29] MEDS ORDERED: TEMAZEPAM 15 MG CAP PO PRN (16:20)
[2017-12-29] MEDS ORDERED: ALPRAZolam 0.25 MG TAB PO PRN (16:20)
[2017-12-29] MEDS ORDERED: FUROSEMIDE 10 MG/ML 2 ML VIAL IV SCH ×2 (16:22→20:46)
[2017-12-29] MEDS ORDERED: WARFARIN 5 MG TAB PO SCH (16:30)
[2017-12-29] MEDS ORDERED: WARFARIN 7.5 MG TAB PO SCH (16:30)
[2017-12-29] MEDS ORDERED: cefTRIAXone IN SWFI 1,000 MG/10 ML SYRINGE IVP SCH (18:45)
[2017-12-29] MEDS: methylPREDNISolone SOD SUCCI 125 MG/2 ML VIAL IV SCH (18:57)
[2017-12-29] MEDS: INSULIN ASPART 100 UNIT/ML 1 ML 10 ML VIAL SQ SCH ×2 (18:58→21:31)
[2017-12-29 19:05] LABS: Glucose,Whole Blood 129 mg/dL (75-99)
[2017-12-29 19:18] LABS: Appearance,Urine Cloudy (Clear); Bacteria,Urine Few /hpf; Bilirubin,Urine 1+ (Negative); Blood,Urine Small (Negative); Color,Urine Dark Yellow; Glucose,Urine (UA) Negative (Negative); Hyaline Casts,Urine 63 /lpf (0-2); Ketones,Urine Negative (Negative); Leukocyte Esterase,Urine Large (Negative); Mucus,Urine Occasional /hpf; Nitrite,Urine Negative (Negative); PH, Urine 5.5 (5.0-8.0); Protein,Urine 2+ (Negative); RBC,Urine 10 /hpf (0-5); Specific Gravity,Urine 1.021 (1.001-1.035); Squamous Epithelial Cell,Urine 31 /hpf (0-4); WBC,Urine 29 /hpf (0-5)
[2017-12-29] MEDS ORDERED: MORPHINE SULFATE 2 MG/ML SYRINGE IVP PRN (21:03)
[2017-12-29 21:30] LABS: Glucose,Whole Blood 192 mg/dL (75-99)
[2017-12-29] MEDS: METOPROLOL TARTRATE 25 MG TAB PO SCH (21:35)
[2017-12-29] MEDS: SILVER sulfADIAZINE Cream 400 GM 1 APPLIC APPLIC TOPICAL SCH (22:45)
[2017-12-29] MEDS: ceFAZolin IN SWFI 2 GM/20 ML SYRINGE IVP SCH (22:45)
--- NOTE | 2017-12-29 23:35 | HP ---
HISTORY AND PHYSICAL CHIEF COMPLAINTS: Shortness of breath as well bilateral leg cellulitis. HISTORY OF PRESENT ILLNESS: This 67-year-old woman with a past medical history of atrial ablation, CHF, COPD, CVA, TIA, GERD, hypertension, hyperlipidemia, was recently admitted with shortness of breath thought to be multifactorial, COPD, acute exacerbation of CHF acute exacerbation, respiratory failure. Patient also has right leg cellulitis with Enterococcus faecalis. Patient was sent home on p.o. antibiotics. At home, the patient had complaints of increasing pain and swelling of both legs as well as shortness of breath, so the patient came to [facility], admitted for further evaluation and treatment. There is no history of any fever, rigors chills at this time. The patient is followed by Dr. Du Lancaster in the outpatient setting. PAST MEDICAL HISTORY: History of atrial fibrillation, history of CHF, COPD, CVA, TIA, GERD, hypertension, hyperlipidemia, history of DJD, history of right-sided weakness, CVA. MEDICATIONS PRIOR TO ADMISSION: Include: 1. Metformin 500 mg p.o. daily. 2. Home medications are: a. Glucophage 500 mg p.o. daily. b. Coumadin 7.5 mg q.48 hours and. c. Coumadin 5 mg p.o. q.48h hours. d. Spiriva 1 puff daily. e. Aldactone 12.5 mg. f. Lopressor 25 mg q.h.s. g. Lopressor 50 mg b.i.d. h. Synthroid 25 mcg p.o. daily. i. Motrin 800 mg p.o. t.i.d. p.r.n. j. Lasix 20 mg p.o. daily. k. Lanoxin 250 mcg p.o. daily. l. Keflex 500 mg p.o. q.8h. m. Symbicort 160/4.5 two puffs b.i.d. n. Ventolin 2.5 q.i.d. p.r.n. o. Tylenol 650 every 6 hours p.r.n. ALLERGIES: None. FAMILY HISTORY: No history of heart disease or strokes in the family. SOCIAL HISTORY: History of continued smoking. REVIEW OF SYSTEMS: ENT: No diminished hearing, diminished vision. CARDIOVASCULAR: No angina, palpitations. RESPIRATORY: As mentioned earlier. GI: As mentioned earlier. : No dysuria. NERVOUS: No numbness or weakness. ALLERGY/IMMUNOLOGY: No asthma or hay fever. MUSCULOSKELETAL: As mentioned earlier. HEMATOLOGY/ONCOLOGY: No history of anemia. ENDOCRINE: As mentioned earlier. CONSTITUTIONAL: As mentioned earlier. DERMATOLOGY: As mentioned earlier. RHEUMATOLOGY: Negative. PSYCHIATRY: As mentioned earlier. PHYSICAL EXAMINATION: Alert, oriented x3. Pulse is 104, blood pressure 124/70, respirations 20, temperature is normal, pulse ox 98% on oxygen. HEENT: Conjunctivae normal. Oral mucosa moist. NECK: No jugular venous distention. No carotid bruits. No lymph node enlargement. CARDIOVASCULAR: S1, S2 muffled. RESPIRATORY: Breath sounds diminished in the bases. A few scattered rhonchi and crackles in the bases. Expiratory wheezing also present ABDOMEN: Soft, obese, nontender. No mass palpable. LEGS: Bilateral leg swelling and leg edema, right more than left. NERVOUS SYSTEM: Higher functions as mentioned earlier. Moves all 4 limbs. No focal motor or sensory deficits. LYMPHATIC: No lymphadenopathy in neck or axillae. SKIN: As mentioned earlier. JOINTS: No active deforming arthropathy. LAB STUDIES: WBC 10.7 and MCV 100.4, INR 2.4. ASSESSMENT: 1. Shortness of breath, possibly multifactorial with chronic obstructive pulmonary disease acute exacerbation and congestive heart failure acute exacerbation with acute on chronic diastolic dysfunction. 2. Bilateral leg cellulitis with Enterococcus faecalis, worsening with failure of outpatient treatment. 3. Increased WBC. 4. Increased MCV. 5. History of chronic atrial fibrillation with a controlled ventricular rate. 6. Coumadin monitoring. 7. History of cardiomyopathy. 8. History of chronic obstructive pulmonary disease. 9. Cerebrovascular accident with severe right-sided hemiplegia. 10.Aphasia. 11.Gastroesophageal reflux disease. 12.Hypertension. 13.History of continued ongoing nicotine dependence. 14.Aortic stenosis. 15.Severe pulmonary hypertension. RECOMMENDATIONS AND DISCUSSION: In this 67-year-old woman who presented with multiple complex medical issues, will monitor the patient closely, continue with the current medical management and symptomatic treatment. I recommend broad-spectrum IV antibiotics. I would recommend cefazolin, obtain cultures; blood, urine and wound cultures. Otherwise, local treatment. I would also recommend IV diuretics and also bronchodilators. IV steroids also have been initiated. Monitor blood sugars closely. Dr. Troy will be consulted. Guarded prognosis because of multiple complex medical issues. I would also recommend to monitor the PT/INR closely as well. See orders for further details. A copy of this dictation will be forwarded to Dr. Du Lancaster, who is the primary physician. MMPHOENIXL / IJN: [id number] /
[2017-12-29] MEDS: BUDESONIDE 1 MG/2 ML NEBU INHALATION SCH (23:51)
[2017-12-29] MEDS: IPRATROPIUM-ALBUTEROL 3 ML NEB INHALATION SCH (23:51)
[2017-12-29] MEDS: FORMOTEROL FUMARATE 20 MCG/2 ML NEBU INHALATION SCH (23:51)
[2017-12-30] MEDS: methylPREDNISolone SOD SUCCI 125 MG/2 ML VIAL IV SCH ×4 (03:25→17:18)
[2017-12-30 03:46] VITALS: BMI 36.6
[2017-12-30 06:18] LABS: Glucose,Whole Blood 140 mg/dL (75-99)
[2017-12-30] MEDS: INSULIN ASPART 100 UNIT/ML 1 ML 10 ML VIAL SQ SCH ×4 (06:28→21:01)
[2017-12-30] MEDS: ceFAZolin IN SWFI 2 GM/20 ML SYRINGE IVP SCH ×2 (06:28→15:20)
[2017-12-30] MEDS: PANTOPRAZOLE 40 MG TABLET PO SCH (06:29)
[2017-12-30] MEDS: LEVOTHYROXINE 25 MCG TAB PO SCH (06:29)
[2017-12-30] MEDS: metFORMIN 500 MG TAB PO SCH (08:05)
[2017-12-30] MEDS: METOPROLOL TARTRATE 50 MG TAB PO SCH (08:05)
[2017-12-30] MEDS: SPIRONOLACTONE 25 MG TAB PO SCH (08:05)
[2017-12-30] MEDS: DIGOXIN 250 MCG TAB PO SCH (08:05)
[2017-12-30] MEDS: SILVER sulfADIAZINE Cream 400 GM 1 APPLIC APPLIC TOPICAL SCH ×2 (08:10→20:26)
[2017-12-30 08:11] LABS: Anisocytosis Slight; Basophils % (A) 0 %; Eosinophils % (A) 0 %; HCT 47.3 % (34.0-46.0); HGB 14.1 gm/dL (11.4-16.0); Hypochromasia Marked; Lymphocytes # (A) 0.8 k/uL (1.0-4.8); Lymphocytes % (A) 8 %; MCH 30.4 pg (25.0-35.0); MCHC 29.8 g/dL (31.0-37.0); MCV 101.9 fL (80.0-100.0); Macrocytosis Moderate; Mean Platelet Volume 7.9; Monocytes # (A) 0.5 k/uL (0-1.0); Monocytes % (A) 6 %; Neutrophils # (A) 7.9 k/uL (1.3-7.7); Neutrophils % (A) 85 %; Platelet Count 231 k/uL (150-450); RBC 4.64 m/uL (3.80-5.40); RDW 17.1 % (11.5-15.5); WBC 9.2 k/uL (3.8-10.6)
[2017-12-30] MEDS: FUROSEMIDE 10 MG/ML 2 ML VIAL IV SCH ×2 (08:12→20:26)
[2017-12-30] MEDS: IPRATROPIUM-ALBUTEROL 3 ML NEB INHALATION SCH ×4 (08:17→20:08)
[2017-12-30] MEDS: FORMOTEROL FUMARATE 20 MCG/2 ML NEBU INHALATION SCH ×2 (08:17→20:07)
[2017-12-30] MEDS: BUDESONIDE 1 MG/2 ML NEBU INHALATION SCH ×2 (08:17→20:07)
[2017-12-30 08:20] LABS: INR 3.2 (<1.2); Prothrombin Time 28.8 sec (9.0-12.0)
[2017-12-30 08:22] LABS: Calcium 9.8 mg/dL (8.4-10.2); Potassium 5.6 mmol/L (3.5-5.1)
[2017-12-30 12:03] LABS: Glucose,Whole Blood 151 mg/dL (75-99)
--- NOTE | 2017-12-30 14:18 | P.CNPUL ---
History of Present Illness Consult date: 12/30/17 Reason for consult: dyspnea History of present illness: 57-year-old female patient is known to me from previous admissions. The patient came in to the [facility] about yesterday because of worsening shortness of breath. The patient apparently got worse over the past few days. The patient has history of CVA and she has expressive aphasia. Heart with a care with the patient. According to the the patient was getting progressively more weak and more short of breath. She was in the hospital and on very much aware of this patient. She was being treated for a right lower extremity cellulitis and she was complaining course of Keflex on outpatient basis. No significant leukocytosis. Function is stable for now. INR is therapeutic. Urine analysis was abnormal and it showed white cells raising the suspicion for an infection knowing that there was some few bacteria is and this is to be further followed up by a urine culture. She is afebrile. She is hemodynamically stable. The chest x-ray shows cardiomegaly. As far as her history, this woman has COPD and she has been treated in the past for CHF and chronic atrial fibrillation. She has had a previous left sided CVA with extensive aphasia and right-sided weakness and she was the hospital recently for Alice distress and respiratory failure attributed to COPD exacerbation. She continues to smoke cigarettes. Her echocardiogram from 05/01 showed ejection fraction 45-50% consistent with mild impairment that she has a PA pressure of 48. She has had previous urinary tract infections. Her most recent blood culture was positive for enterococcus patient probably due to a soft tissue infection/right lower extremity cellulitis for which the patient was completing outpatient course of Kefzol. Review of Systems Very hard to communicate with the patient as the patient has some expressive aphasia. Constitutional: Reports fatigue, Reports weakness Eyes: denies blurred vision, denies bulging eye, denies decreased vision Ears: deny: decreased hearing, ear discharge, earache, tinnitus Ears, nose, mouth and throat: Denies headache, Denies sore throat Cardiovascular: Reports irregular heart beat, Reports leg edema, Reports orthopnea, Reports palpitations, Reports rapid heart beat Respiratory: Reports as per HPI, Reports cough, Reports dyspnea Gastrointestinal: Denies abdominal pain, Denies diarrhea, Denies nausea, Denies vomiting Genitourinary: Denies dysuria, Denies hematuria Musculoskeletal: Denies myalgias Musculoskeletal: bilateral: ankle swelling, absent: ankle pain, ankle stiffness Integumentary: Denies pruritus, right lower extremity erythema and cellulitis which is improving based on our assessment. Neurological: Reports aphasia, Reports balance difficulties, Reports change in mentation, Reports change in speech, Reports gait dysfunction, Reports paralysis , Reports weakness Psychiatric: Reports as per HPI Endocrine: Reports as per HPI Hematologic/Lymphatic: Reports as per HPI Allergic/Immunologic: Reports as per HPI Past Medical History Past Medical History: Atrial Fibrillation, Chest Pain / Angina, Heart Failure, COPD, CVA/TIA, GERD/Reflux, Hyperlipidemia, Hypertension, Osteoarthritis (OA), Pneumonia, Renal Disease Additional Past Medical History / Comment(s): 2002 CVA with R sided weakness arm /leg/contracted R hand and dysphasia, Afib with RVR, cardiac valve disease, DJD , occasional back pain, bronchitis, UTIs, kidney infections, anemia, head injury. 2018 CVA with right side flaccid and dysphagia, recent hospitalization for COPD exacerbation in addition to a right lower lobectomy cellulitis. Recent treatment for enterococcus patient septicemia. History of Any Multi-Drug Resistant Organisms: None Reported Past Surgical History: Section, Hernia Repair, Orthopedic Surgery, Tonsillectomy Additional Past Surgical History / Comment(s): Incarcerated umbilical hernia repair/omentum resection, X2, L tibial IM nailing, teeth extractions. Past Anesthesia/Blood Transfusion Reactions: No Reported Reaction Past Psychological History: No Psychological Hx Reported Additional Psychological History / Comment(s): Lives in a senior apartment. Her daughter does help. She is a reformed smoker. No experience. No animals in the home Smoking Status: Current every day smoker Past Alcohol Use History: None Reported Additional Past Alcohol Use History / Comment(s): has smoked off and on since age 14 Past Drug Use History: None Reported - Past Family History Father Family Medical History: No Reported History Additional Family Medical History / Comment(s): FATHER WAS HEALTHY AND LIVED TO BE 96YRS OLD. Mother Family Medical History: Cancer Additional Family Medical History / Comment(s): MOTHER HAD BREAST CANCER. Medications and Allergies Home Medications Medication Instructions Recorded Confirmed Type Digoxin [Lanoxin] 250 mcg PO DAILY #30 tab 04/27/15 12/29/17 Rx Tiotropium Royal [Spiriva] 1 cap INHALATION RT-DAILY 05/01/17 12/29/17 History Albuterol Nebulized [Ventolin 2.5 mg INHALATION RT-QID PRN 08/17/17 12/29/17 History Nebulized] Metoprolol Tartrate [Lopressor] 50 mg PO DAILY 11/02/17 12/29/17 History Ibuprofen [Motrin] 800 mg PO TID PRN 12/18/17 12/29/17 History Levothyroxine Sodium [Synthroid] 25 mcg PO DAILY 12/18/17 12/29/17 History Warfarin [Coumadin] 5 mg PO Q48H 12/18/17 12/29/17 History Warfarin [Coumadin] 7.5 mg PO Q48H 12/18/17 12/29/17 History metFORMIN HCL [Glucophage] 500 mg PO DAILY 12/18/17 12/29/17 History Acetaminophen Tab [Tylenol] 650 mg PO Q6HR PRN tab 12/23/17 12/29/17 Rx Budesonide-Formot 160-4.5 Mcg 2 puff INHALATION RT-BID #1 puff 12/23/17 Rx [Symbicort 160-4.5 Mcg Inhaler] Cephalexin [Keflex] 500 mg PO Q8HR #21 cap 12/23/17 12/29/17 Rx Metoprolol Tartrate [Lopressor] 25 mg PO HS #30 tab 12/23/17 12/29/17 Rx Spironolactone [Aldactone] 12.5 mg PO DAILY #30 tab 12/23/17 12/29/17 Rx Furosemide [Lasix] 20 mg PO DAILY 12/29/17 12/29/17 History Allergies Allergy/AdvReac Type Severity Reaction Status Date / Time No Known Allergies Allergy Verified 12/29/17 12:20 Physical Exam Vitals: Vital Signs Temp Pulse Pulse Resp BP BP Pulse Ox 12/30/17 11:53 119 H 12/30/17 11:48 96.2 F L 68 18 137/75 99 12/30/17 11:42 118 H 12/30/17 08:34 121 H 12/30/17 08:30 120 H 12/30/17 08:29 126 H 12/30/17 08:18 134 H 12/30/17 08:00 96.0 F L 88 20 110/73 95 12/30/17 03:47 96.9 F L 90 18 128/77 98 12/30/17 02:07 97.0 F L 76 15 114/69 98 12/29/17 23:41 92 17 12/29/17 21:52 102 H 16 132/64 96 12/29/17 18:00 105 H 20 108/70 99 12/29/17 16:00 104 H 20 124/78 98 12/29/17 15:28 18 Intake and Output 12/29/17 12/30/17 12/30/17 22:59 06:59 14:59 Other: Voiding Method Bedpan Bedpan Diaper Incontinent # Voids 0 Weight 90.718 kg 104.5 kg Gen. appearance the patient is not in respiratory distress even at rest. The patient has some facial asymmetry related to previous CVA. She is not using accessory muscles of breathing. Head exam was generally normal. There was no scleral icterus or corneal arcus. Mucous membranes were moist. Neck was supple and without jugular venous distension, thyromegaly, or carotid bruits. Carotids were easily palpable bilaterally. There was no adenopathy. Lungs sounds are diminished bilaterally. There is some bibasilar crackles. Scattered expiratory wheezes heard throughout the lung moraes bilaterally especially upon forceful respiratory maneuvers. Heart sounds are irregular, positive S1-S2 and there is a faint systolic ejection murmur grade 2/6 heard throughout the precordium. Abdominal exam revealed normal bowel sounds. The abdomen was soft, non-tender, and without masses, organomegaly, or appreciable enlargement of the abdominal aorta. Examination of the extremities revealed easily palpable radial, femoral and pedal pulses. There was no cyanosis, clubbing and the patient has +1-2 pitting edema in lower extremities bilaterally. There is also an ongoing cellulitis of the right lower extremity which is improved compared to previous evaluations. Neurologically the patient is awake. The patient is aphasic. She has chronic hemiplegia on the right side with right-sided spasticity and weakness. Facial asymmetry is present. There is expressive aphasia. Results - Laboratory Findings CBC and BMP: 12/30/17 07:21 12/30/17 07:21 PT/INR, D-dimer PT 28.8 sec (9.0-12.0) H 12/30/17 07:21 INR 3.2 (<1.2) H 12/30/17 07:21 Abnormal lab findings: Abnormal Labs 12/29/17 12/29/17 12/29/17 12:40 12:40 12:40 WBC 10.7 H Hct 46.1 H MCV 100.4 H MCHC 29.6 L RDW 16.8 H Neutrophils # 8.8 H Lymphocytes # PT 21.9 H INR 2.4 H Potassium Carbon Dioxide 31 H BUN 24 H Creatinine Glucose 177 H POC Glucose (mg/dL) Total Bilirubin 2.6 H Albumin 3.4 L Urine Appearance Urine Protein Urine Blood Urine Bilirubin Ur Leukocyte Esterase Urine RBC Urine WBC Ur Squamous Epith Cells Urine Bacteria Hyaline Casts Urine Mucus 12/29/17 12/29/17 12/29/17 18:38 18:45 21:27 WBC Hct MCV MCHC RDW Neutrophils # Lymphocytes # PT INR Potassium Carbon Dioxide BUN Creatinine Glucose POC Glucose (mg/dL) 129 H 192 H Total Bilirubin Albumin Urine Appearance Cloudy H Urine Protein 2+ H Urine Blood Small H Urine Bilirubin 1+ H Ur Leukocyte Esterase Large H Urine RBC 10 H Urine WBC 29 H Ur Squamous Epith Cells 31 H Urine Bacteria Few H Hyaline Casts 63 H Urine Mucus Occasional H 12/30/17 12/30/17 12/30/17 06:16 07:21 07:21 WBC Hct 47.3 H MCV 101.9 H MCHC 29.8 L RDW 17.1 H Neutrophils # 7.9 H Lymphocytes # 0.8 L PT 28.8 H INR 3.2 H Potassium Carbon Dioxide BUN Creatinine Glucose POC Glucose (mg/dL) 140 H Total Bilirubin Albumin Urine Appearance Urine Protein Urine Blood Urine Bilirubin Ur Leukocyte Esterase Urine RBC Urine WBC Ur Squamous Epith Cells Urine Bacteria Hyaline Casts Urine Mucus 12/30/17 12/30/17 07:21 11:18 WBC Hct MCV MCHC RDW Neutrophils # Lymphocytes # PT INR Potassium 5.6 H Carbon Dioxide BUN 31 H Creatinine 1.07 H Glucose 116 H POC Glucose (mg/dL) 151 H Total Bilirubin Albumin Urine Appearance Urine Protein Urine Blood Urine Bilirubin Ur Leukocyte Esterase Urine RBC Urine WBC Ur Squamous Epith Cells Urine Bacteria Hyaline Casts Urine Mucus - Diagnostic Findings Chest x-ray: image reviewed Assessment and Plan Plan: Assessment 1 shortness of breath, multifactorial. The patient has advanced COPD and the patient has also component of CHF and a chest x-ray showing multi-chamber cardiac enlargement. It's reasonable to repeat an echocardiogram to get a follow-up on the ejection fraction and pulmonary hypertension. 2 lower extremity cellulitis, improving 3 enterococcus species sepsis completing course of IV Kefzol 4 chronic atrial fibrillation, on long-term articulation with warfarin the patient's PT/INR is therapeutic with an INR of 3.2 5 COPD 6 CVA with right-sided hemiplegia and extensive aphasia and the patient is essentially bedridden 7 hypertension 8 hyperlipidemia 9 smoker 10 suspected urine tract infection Plan Repeat echocardiogram in the morning. Continue Kefzol or switch her to an IV form of Kefzol during her hospital stay. Monitor this and let us of the lower extremities. Repeat blood cultures. Continue articulation with warfarin. Resume outpatient bronchodilators. We'll continue to follow.
[2017-12-30] MEDS ORDERED: WARFARIN 5 MG TAB PO SCH (16:30)
[2017-12-30 16:41] LABS: Glucose,Whole Blood 167 mg/dL (75-99)
--- NOTE | 2017-12-30 17:01 | PN ---
PROGRESS NOTE DATE OF SERVICE: 12/30/2017 INTERVAL HISTORY: This is a 67-year-old female patient with past medical history of congestive heart failure, COPD, CVA, TIA, GERD, hypertension, hyperlipidemia, and was recently admitted with shortness of breath thought to be multifactorial, COPD as well as acute exacerbation of CHF. The patient also has a right leg cellulitis with Enterococcus faecalis and was on home oral antibiotics. The patient presented to the emergency room with complaints of increased pain, swelling of both legs as well as shortness of breath. The patient was admitted to the inpatient unit and was placed back on IV antibiotic and has had a pulmonary consultation. The patient had a Doppler study of bilateral lower extremities, failed to show any deep vein thrombosis. REVIEW OF SYSTEMS: Denied fever, chills or diaphoresis. Denied chest pain or palpitation. Denied worsening shortness of breath, cough, or sputum production. Denied abdominal pain, nausea, vomiting, diarrhea, or constipation. Denied urgency, frequency, dysuria. CURRENT MEDICATIONS: 1. Tylenol. 2. [place] 5/325 one p.o. q.6 hours p.r.n. 3. DuoNeb q.i.d. 4. Xanax. 5. Pulmicort. 6. Kefzol 2 g IV piggyback q.8 hours. 7. Digoxin. 8. Lasix. 9. Ibuprofen 800 mg t.i.d. p.r.n. 10.NovoLog sliding scale. 11.Synthroid. 12.Metformin. 13.Prednisone 60 mg q.6 hours. 14.Lopressor 25 mg q.h.s. and 50 mg in the morning. 15.Morphine sulfate 2 mg IV push q.4 hours p.r.n. 16.Protonix 40 mg daily. 17.Silvadene cream b.i.d. to bilateral lower extremity cellulitis. 18.Aldactone 200 mg daily. 19.Restoril 15 mg q.h.s. 20.Coumadin 7.5 mg q.48 hours alternating with 5 mg. PHYSICAL EXAMINATION: VITAL SIGNS: 96.2, heart rate 60, respiratory rate 18, blood pressure 137/75, pulse ox 99 percent on oxygen 2 L/minutes nasal cannula. GENERAL: Patient is lying in bed, head of the bed elevated, does not seem to be in any acute discomfort. HEAD: Normocephalic. NECK: Supple. No JVD. LUNGS: Sounds are diminished with scattered rhonchi bilaterally with expiratory wheezing and prolonged expiration. Oxygen per nasal cannula. CARDIOVASCULAR: S1, S2 present. Regular rate and rhythm. No S3 or S4. ABDOMEN: Obese, soft, nondistended, nontender. Bowel sounds are normoactive. LEGS: Bilateral leg swelling and redness noted. The patient has chronic lymphedema of the right lower extremity. A few open areas with the redness. NEUROLOGICAL: Generalized weakness. Awake, oriented x3. PSYCHIATRIC: Normal mood and affect. LABORATORY STUDIES: WBC 9.2, hemoglobin 14.1, hematocrit 47.3, platelet count 231, sodium is 139, potassium 5.6, chloride 100, creatinine 1.07, BUN 31. ASSESSMENT AND PLAN: 1. Shortness of breath, possible multifactorial with chronic obstructive pulmonary disease and acute exacerbation of congestive heart failure. The patient has been followed by the Pulmonary Service. 2. Bilateral lower leg cellulitis with Enterococcus faecalis, worsening with failure of outpatient treatment, currently on IV antibiotic. 3. Congestive heart failure, diastolic dysfunction. 4. Leukocytosis. 5. Possible sepsis with cellulitis. 6. History of chronic atrial fibrillation with controlled ventricular rate. Anticoagulation with Coumadin. 7. Coumadin monitoring. 8. History of cardiomyopathy. 9. Acute on chronic exacerbation of COPD. 10.Aphasia. 11.Cerebrovascular accident with severe right-sided hemiplegia. 12.Gastroesophageal reflux disease. 13.Hypertension. 14.History of continued nicotine dependence. 15.Aortic stenosis. 16.Severe pulmonary hypertension. PLAN: We will continue with the current medications, continue IV antibiotic. Continue the systemic as well as inhaled steroid. Continue IV antibiotics for cellulitis. Patient has a potassium of 5.6. Will give 30 gm Kayexalate. Monitor CBC and BMP in a.m. Prognosis is guarded with multiple complex medical problems. Monitor patient closely, further plans based on her clinical course. I performed a history and examination of the patient and discuss her management with the nurse practitioner. I received the nurse practitioner's note and agree with the documented findings and plan of care. MMPHOENIXL / EPI: [id number] /
[2017-12-30] MEDS ORDERED: SODIUM POLYSTYRENE SULFONATE 15 GM/60 ML BOTTLE PO STA (17:45)
[2017-12-30] MEDS: METOPROLOL TARTRATE 25 MG TAB PO SCH (20:26)
[2017-12-30 20:57] LABS: Glucose,Whole Blood 145 mg/dL (75-99)
--- NOTE | 2017-12-30 22:13 | PN ---
PROGRESS NOTE DATE OF SERVICE: 12/30/2017. ADDENDUM: This 67-year-old woman who was admitted with shortness of breath, possibly multifactorial, also had bilateral lower leg cellulitis also. The patient is started on IV antibiotics. Patient also had hyperkalemia and Kayexalate has been given. Seen and evaluated the patient along with the nurse practitioner. Please refer to nurse practitioner's notes and recommendations documented as scribe for further information. MMODL / IJN: [id number] /
[2017-12-31] MEDS: ceFAZolin IN SWFI 2 GM/20 ML SYRINGE IVP SCH ×3 (00:06→15:21)
[2017-12-31] MEDS: methylPREDNISolone SOD SUCCI 125 MG/2 ML VIAL IV SCH ×3 (00:06→12:08)
[2017-12-31] MEDS: DILTIAZEM 50 MG in SODIUM CHLORIDE 0.9% 40 ML IV SCH ×3 (00:06→17:33)
[2017-12-31 06:01] LABS: Glucose,Whole Blood 159 mg/dL (75-99)
[2017-12-31] MEDS: LEVOTHYROXINE 25 MCG TAB PO SCH (06:25)
[2017-12-31] MEDS: PANTOPRAZOLE 40 MG TABLET PO SCH (06:25)
[2017-12-31] MEDS: INSULIN ASPART 100 UNIT/ML 1 ML 10 ML VIAL SQ SCH ×4 (06:32→22:29)
[2017-12-31 06:47] LABS: Anisocytosis Slight; Basophils % (A) 0 %; Eosinophils % (A) 0 %; HCT 48.2 % (34.0-46.0); HGB 14.2 gm/dL (11.4-16.0); Hypochromasia Marked; Lymphocytes # (A) 0.8 k/uL (1.0-4.8); Lymphocytes % (A) 7 %; MCH 29.6 pg (25.0-35.0); MCHC 29.5 g/dL (31.0-37.0); MCV 100.5 fL (80.0-100.0); Macrocytosis Slight; Mean Platelet Volume 7.8; Monocytes # (A) 0.4 k/uL (0-1.0); Monocytes % (A) 3 %; Neutrophils # (A) 10.1 k/uL (1.3-7.7); Neutrophils % (A) 89 %; Platelet Count 266 k/uL (150-450); WBC 11.4 k/uL (3.8-10.6)
[2017-12-31 07:05] LABS: Calcium 9.7 mg/dL (8.4-10.2); Potassium 5.4 mmol/L (3.5-5.1)
[2017-12-31] MEDS: FORMOTEROL FUMARATE 20 MCG/2 ML NEBU INHALATION SCH ×2 (07:06→19:39)
[2017-12-31] MEDS: BUDESONIDE 1 MG/2 ML NEBU INHALATION SCH ×2 (07:06→19:39)
[2017-12-31] MEDS: IPRATROPIUM-ALBUTEROL 3 ML NEB INHALATION SCH ×4 (07:07→19:39)
[2017-12-31 07:10] LABS: Prothrombin Time 98.1 sec (9.0-12.0)
[2017-12-31 07:34] LABS: INR >10.0 (<1.2)
[2017-12-31] MEDS: DIGOXIN 250 MCG TAB PO SCH (08:02)
[2017-12-31] MEDS: FUROSEMIDE 10 MG/ML 2 ML VIAL IV SCH (08:02)
[2017-12-31] MEDS: metFORMIN 500 MG TAB PO SCH (08:03)
[2017-12-31] MEDS: SPIRONOLACTONE 25 MG TAB PO SCH (08:03)
[2017-12-31] MEDS: METOPROLOL TARTRATE 50 MG TAB PO SCH (08:03)
[2017-12-31] MEDS: SILVER sulfADIAZINE Cream 400 GM 1 APPLIC APPLIC TOPICAL SCH ×2 (08:03→22:32)
[2017-12-31 09:26] LABS: Prothrombin Time 98.6 sec (9.0-12.0)
[2017-12-31 09:29] LABS: INR >10.0 (<1.2)
[2017-12-31] MEDS ORDERED: PHYTONADIONE ORAL 5 MG/5 ML ORAL.SYRG PO STA (09:37)
[2017-12-31 11:29] LABS: Hemoglobin A1C 7.5 % (4.0-6.0)
[2017-12-31 11:55] LABS: Glucose,Whole Blood 185 mg/dL (75-99)
--- NOTE | 2017-12-31 12:27 | P.PN ---
Subjective Progress Note Date: 12/31/17 57-year-old female patient is known to me from previous admissions. The patient came in to the [facility] about yesterday because of worsening shortness of breath. The patient apparently got worse over the past few days. The patient has history of CVA and she has expressive aphasia. Heart with a care with the patient. According to the the patient was getting progressively more weak and more short of breath. She was in the hospital and on very much aware of this patient. She was being treated for a right lower extremity cellulitis and she was complaining course of Keflex on outpatient basis. No significant leukocytosis. Function is stable for now. INR is therapeutic. Urine analysis was abnormal and it showed white cells raising the suspicion for an infection knowing that there was some few bacteria is and this is to be further followed up by a urine culture. She is afebrile. She is hemodynamically stable. The chest x-ray shows cardiomegaly. As far as her history, this woman has COPD and she has been treated in the past for CHF and chronic atrial fibrillation. She has had a previous left sided CVA with extensive aphasia and right-sided weakness and she was the hospital recently for Alice distress and respiratory failure attributed to COPD exacerbation. She continues to smoke cigarettes. Her echocardiogram from 05/01 showed ejection fraction 45-50% consistent with mild impairment that she has a PA pressure of 48. She has had previous urinary tract infections. Her most recent blood culture was positive for enterococcus patient probably due to a soft tissue infection/right lower extremity cellulitis for which the patient was completing outpatient course of Kefzol. On 12/31/2017, the patient is doing well. No significant shortness of breath. The sunrise of the right lower extremity is improving as the patient is currently on IV antibiotics. The patient is on IV. Meanwhile I noted that the patient's PT/INR is supratherapeutic with an INR level of above 10 and we give this patient 2.5 mg of oral vitamin K. The patient is not having any signs of bleeding. She is also on Cardizem drip at 5 g an hour and the rate is controlled in terms of her atrial fibrillation. He is on metoprolol 50 mg the morning and 20 5 in the evening and digoxin 0.25 mg for rate. She is also on IV Lasix and she started to become prerenal. I'm going to stop her IV Lasix for now knowing that the creatinine is on the rise compared to her baseline. She has been negative fluid balance and she is improved. Coumadin is on hold. Objective - Vital Signs Vital signs: Vital Signs Temp 97.5 F L 12/31/17 07:49 Pulse 88 12/31/17 07:49 Resp 20 12/31/17 07:49 BP 105/74 12/31/17 07:49 Pulse Ox 97 12/31/17 07:49 Intake & Output 12/30/17 12/31/17 12/31/17 18:59 06:59 18:59 Intake Total 240 267.75 240 Balance 240 267.75 240 Intake: Intake, IV Titration 31.75 Amount Diltiazem 50 mg In Sodium 31.75 Chloride 0.9% 40 ml @ 5 MG/HR 5 mls/hr IV .Q10H [facility] Rx#:[id number] Oral 240 236 240 Other: Voiding Method Bedpan Bedpan Bedpan Diaper Diaper Diaper Incontinent Incontinent Incontinent # Voids 2 1 0 - Exam Gen. appearance the patient is not in respiratory distress even at rest. The patient has some facial asymmetry related to previous CVA. She is not using accessory muscles of breathing. Head exam was generally normal. There was no scleral icterus or corneal arcus. Mucous membranes were moist. Neck was supple and without jugular venous distension, thyromegaly, or carotid bruits. Carotids were easily palpable bilaterally. There was no adenopathy. Lungs sounds are diminished bilaterally. There is some bibasilar crackles. Scattered expiratory wheezes heard throughout the lung moraes bilaterally especially upon forceful respiratory maneuvers. Heart sounds are irregular, positive S1-S2 and there is a faint systolic ejection murmur grade 2/6 heard throughout the precordium. Abdominal exam revealed normal bowel sounds. The abdomen was soft, non-tender, and without masses, organomegaly, or appreciable enlargement of the abdominal aorta. Examination of the extremities revealed easily palpable radial, femoral and pedal pulses. There was no cyanosis, clubbing and the patient has +1-2 pitting edema in lower extremities bilaterally. There is also an ongoing cellulitis of the right lower extremity which is improved compared to previous evaluations. Neurologically the patient is awake. The patient is aphasic. She has chronic hemiplegia on the right side with right-sided spasticity and weakness. Facial asymmetry is present. There is expressive aphasia. - Labs CBC & Chem 7: 12/31/17 06:22 12/31/17 06:22 Labs: Abnormal Lab Results - Last 24 Hours (Table) 12/29/17 12/30/17 12/30/17 Range/Units 12:40 16:37 20:56 WBC (3.8-10.6) k/uL Hct (34.0-46.0) % MCV (80.0-100.0) fL MCHC (31.0-37.0) g/dL RDW (11.5-15.5) % Neutrophils # (1.3-7.7) k/uL Lymphocytes # (1.0-4.8) k/uL PT (9.0-12.0) sec INR (<1.2) Potassium (3.5-5.1) mmol/L BUN (7-17) mg/dL Creatinine (0.52-1.04) mg/dL Glucose (74-99) mg/dL POC Glucose (mg/dL) 167 H 145 H (75-99) mg/dL Hemoglobin A1c 7.5 H (4.0-6.0) % 12/31/17 12/31/17 12/31/17 Range/Units 06:00 06:22 06:22 WBC 11.4 H (3.8-10.6) k/uL Hct 48.2 H (34.0-46.0) % MCV 100.5 H (80.0-100.0) fL MCHC 29.5 L (31.0-37.0) g/dL RDW 17.0 H (11.5-15.5) % Neutrophils # 10.1 H (1.3-7.7) k/uL Lymphocytes # 0.8 L (1.0-4.8) k/uL PT 98.1 H (9.0-12.0) sec INR >10.0 H* (<1.2) Potassium (3.5-5.1) mmol/L BUN (7-17) mg/dL Creatinine (0.52-1.04) mg/dL Glucose (74-99) mg/dL POC Glucose (mg/dL) 159 H (75-99) mg/dL Hemoglobin A1c (4.0-6.0) % 12/31/17 12/31/17 12/31/17 Range/Units 06:22 08:55 11:28 WBC (3.8-10.6) k/uL Hct (34.0-46.0) % MCV (80.0-100.0) fL MCHC (31.0-37.0) g/dL RDW (11.5-15.5) % Neutrophils # (1.3-7.7) k/uL Lymphocytes # (1.0-4.8) k/uL PT 98.6 H (9.0-12.0) sec INR >10.0 H* (<1.2) Potassium 5.4 H (3.5-5.1) mmol/L BUN 44 H (7-17) mg/dL Creatinine 1.25 H (0.52-1.04) mg/dL Glucose 153 H (74-99) mg/dL POC Glucose (mg/dL) 185 H (75-99) mg/dL Hemoglobin A1c (4.0-6.0) % Microbiology - Last 24 Hours (Table) 12/29/17 21:21 Gram Stain - Preliminary Leg - Right Wound Culture - Preliminary Gram Neg Bacilli 12/29/17 12:00 Blood Culture - Preliminary Blood No Growth after 24 hours 12/29/17 18:45 Urine Culture - Preliminary Urine,Voided Gram Neg Bacilli Group D Enterococcus Assessment and Plan Plan: Assessment 1 shortness of breath, multifactorial. The patient has advanced COPD and the patient has also component of CHF and a chest x-ray showing multi-chamber cardiac enlargement. It's reasonable to repeat an echocardiogram to get a follow-up on the ejection fraction and pulmonary hypertension. Clinically the patient improved and the patient is less short of breath compared to yesterday. 2 lower extremity cellulitis, improving 3 enterococcus species sepsis completing course of IV Kefzol, sunlight is improving 4 chronic atrial fibrillation, on long-term anticoagulation with warfarin the patient's PT/INR is therapeutic with an INR toxic yet the patient is not showing any bleeding. 5 COPD 6 CVA with right-sided hemiplegia and extensive aphasia and the patient is essentially bedridden 7 hypertension 8 hyperlipidemia 9 smoker 10 suspected urine tract infection 11 chronic atrial fibrillation the patient on Cardizem drip at 5 mg an hour for rate control 12 prerenal azotemia related to Lasix. Plan Stop the IV Lasix and switch this patient to oral Lasix. Monitor renal function. Give 2.5 L of vitamin K and hold the warfarin. Repeat PT/INR in the morning. Continued IV antibiotics. We'll continue to follow. Cardizem drip and can be also discontinued as the patient's rate is under good control with a combination of metoprolol and digoxin
[2017-12-31 16:38] LABS: Glucose,Whole Blood 186 mg/dL (75-99)
[2017-12-31] MEDS ORDERED: AMPICILLIN-SULBACTAM 3 GM in SODIUM CHLORIDE 0.9% 100 ML IVPB SCH (17:15)
--- NOTE | 2017-12-31 17:16 | P.PN ---
Subjective Progress Note Date: 12/31/17 Progress note being dictated for Dr. Young Interval history: This a 67-year-old female admitted with acute COPD exacerbation, acute CHF exacerbation, cellulitis, enterococcus sepsis and multiple other medical issues. Maintained on IV antibiotics. Afebrile. INR greater than 10, no signs or symptoms of bleeding, vitamin K ordered. Last night Atrial fibrillation with RVR, Cardizem drip initiated, currently controlled. Maintained on Lasix IV push, renal function worsening, creatinine 1.25. Potassium 5.4. Afebrile. Objective - Vital Signs Vital signs: Vital Signs Temp 97.5 F L 12/31/17 07:49 Pulse 88 12/31/17 07:49 Resp 20 12/31/17 07:49 BP 105/74 12/31/17 07:49 Pulse Ox 97 12/31/17 07:49 Intake & Output 12/30/17 12/31/17 12/31/17 18:59 06:59 18:59 Intake Total 240 267.75 240 Balance 240 267.75 240 Intake: Intake, IV Titration 31.75 Amount Diltiazem 50 mg In Sodium 31.75 Chloride 0.9% 40 ml @ 5 MG/HR 5 mls/hr IV .Q10H [facility] Rx#:[id number] Oral 240 236 240 Other: Voiding Method Bedpan Bedpan Bedpan Diaper Diaper Diaper Incontinent Incontinent Incontinent # Voids 2 1 - Exam PHYSICAL EXAM: VITAL SIGNS: As above GENERAL: Sitting up in bed, no acute distress. Expressive aphasia HEENT: Conjunctivae normal. eyes normal. Oral mucosa moist NECK: No JVD. No thyroid enlargement. No LNs CARDIOVASCULAR: S1, S2 muffled. Irregular, tachycardic, Systolic murmur RESPIRATION: Breath sounds diminished in the bases. No rhonchi, fine bibasilar crackles. Occasional scattered expiratory wheezing. ABDOMEN: Soft, nontender . No guarding. no masses palpable. No ascites, No hepatosplenomegaly.Bowel sounds heard. LEGS: Positive edema bilateral lower extremities. No cyanosis, no clubbing, Positive pedal pulses. PSYCHIATRY: Alert and oriented -3, mood and affect normal. NERVOUS SYSTEM: Chronic right-sided hemiaplasia with facial asymmetry. Skin: Right lower extremity cellulitis improving. Lymphatic system. No LN neck axilla or groin. Microbiology 12/29/17 21:21 Leg - Right Gram Stain - Preliminary 12/29/17 21:21 Leg - Right Wound Culture - Preliminary Gram Neg Bacilli 12/29/17 12:00 Blood Blood Culture - Preliminary No Growth after 24 hours 12/29/17 18:45 Urine,Voided Urine Culture - Preliminary Gram Neg Bacilli Group D Enterococcus - Labs CBC & Chem 7: 12/31/17 06:22 12/31/17 06:22 Labs: Abnormal Lab Results - Last 24 Hours (Table) 12/30/17 12/30/17 12/30/17 Range/Units 11:18 16:37 20:56 WBC (3.8-10.6) k/uL Hct (34.0-46.0) % MCV (80.0-100.0) fL MCHC (31.0-37.0) g/dL RDW (11.5-15.5) % Neutrophils # (1.3-7.7) k/uL Lymphocytes # (1.0-4.8) k/uL PT (9.0-12.0) sec INR (<1.2) Potassium (3.5-5.1) mmol/L BUN (7-17) mg/dL Creatinine (0.52-1.04) mg/dL Glucose (74-99) mg/dL POC Glucose (mg/dL) 151 H 167 H 145 H (75-99) mg/dL 12/31/17 12/31/17 12/31/17 Range/Units 06:00 06:22 06:22 WBC 11.4 H (3.8-10.6) k/uL Hct 48.2 H (34.0-46.0) % MCV 100.5 H (80.0-100.0) fL MCHC 29.5 L (31.0-37.0) g/dL RDW 17.0 H (11.5-15.5) % Neutrophils # 10.1 H (1.3-7.7) k/uL Lymphocytes # 0.8 L (1.0-4.8) k/uL PT 98.1 H (9.0-12.0) sec INR >10.0 H* (<1.2) Potassium (3.5-5.1) mmol/L BUN (7-17) mg/dL Creatinine (0.52-1.04) mg/dL Glucose (74-99) mg/dL POC Glucose (mg/dL) 159 H (75-99) mg/dL 12/31/17 12/31/17 Range/Units 06:22 08:55 WBC (3.8-10.6) k/uL Hct (34.0-46.0) % MCV (80.0-100.0) fL MCHC (31.0-37.0) g/dL RDW (11.5-15.5) % Neutrophils # (1.3-7.7) k/uL Lymphocytes # (1.0-4.8) k/uL PT 98.6 H (9.0-12.0) sec INR >10.0 H* (<1.2) Potassium 5.4 H (3.5-5.1) mmol/L BUN 44 H (7-17) mg/dL Creatinine 1.25 H (0.52-1.04) mg/dL Glucose 153 H (74-99) mg/dL POC Glucose (mg/dL) (75-99) mg/dL Microbiology - Last 24 Hours (Table) 12/29/17 21:21 Gram Stain - Preliminary Leg - Right Wound Culture - Preliminary Gram Neg Bacilli 12/29/17 12:00 Blood Culture - Preliminary Blood No Growth after 24 hours 12/29/17 18:45 Urine Culture - Preliminary Urine,Voided Gram Neg Bacilli Group D Enterococcus Assessment and Plan Assessment: -shortness of breath, multifactorial; secondary to advanced COPD, acute CHF exacerbation, probable diastolic dysfunction, aortic stenosis and severe pulmonary hypertension -Enterococcus faecalis ,lower extremity cellulitis -Chronic Atrial fibrillation: With rapid ventricular rate currently controlled on Cardizem drip -Coumadin coagulopathy -COPD without any significant exacerbation -Hyperlipidemia -Hypertension -Coronary artery disease -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 -Hyperkalemia Plan: Continue current medication regime ,monitoring and symptomatic treatment. Change antibiotics to Unasyn, weight final culture results. Infectious disease consulted. Antiarrhythmics as per cardiology. IV push Lasix discontinued as renal function worsening, converted to oral. Low potassium diet.Vitamin K ordered, Coumadin on hold, close monitoring of INR, renal function, electrolytes with repeat labs ordered for a.m. further recommendations to follow. The impression and plan of care has been dictated as directed. : I performed a history and examination of this patient, discussed the same with the dictator. I agree with the dictator's note ,documented as a scribe. Any additional findings or plans will be noted.
[2017-12-31 21:01] LABS: Glucose,Whole Blood 207 mg/dL (75-99)
[2017-12-31] MEDS: METOPROLOL TARTRATE 25 MG TAB PO SCH (22:30)
[2018-01-01] MEDS ORDERED: ceFAZolin IN SWFI 2 GM/20 ML SYRINGE IVP SCH
--- NOTE | 2018-01-01 00:51 | CT ---
EXAMINATION TYPE: CT brain wo con DATE OF EXAM: 01/01/2018 COMPARISON: None HISTORY: lethargic CT DLP: 1213 mGycm Automated exposure control for dose reduction was used. FINDINGS: There is a 7 x 4 cm area of encephalomalacia in the left parietal lobe consistent with old cortical i nfarct. There is no mass effect nor midline shift. There is no sign of intracranial hemorrhage. There is some hypodensity in the white matter right posterior frontal lobe. The calvarium is intact. The s kull base is intact. IMPRESSION: OLD LEFT PARIETAL CORTICAL INFARCT. LACUNAR OLD INFARCT RIGHT POSTERIOR FRONTAL LOBE. NO ACUTE INTRAC RANIAL ABNORMALITY.
--- NOTE | 2018-01-01 01:14 | US ---
EXAMINATION TYPE: US venous doppler duplex UE RT DATE OF EXAM: 01/01/2018 COMPARISON: NONE CLINICAL HISTORY: swelling, redness . Exam limitations due to patient positioning. SIDE PERFORMED: Right arm Right Arm: Negative for DVT No evidence of DVT right arm. IMPRESSION: No evidence of deep venous thrombosis in the right arm. There is venous flow demonstrated in the jugu lar subclavian axillary brachial vein.
[2018-01-01 02:10] LABS: Prothrombin Time 58.6 sec (9.0-12.0)
[2018-01-01 02:28] LABS: INR 6.4 (<1.2)
[2018-01-01] MEDS ORDERED: PHYTONADIONE ORAL 5 MG/5 ML ORAL.SYRG PO STA ×2 (03:13→11:13)
[2018-01-01] MEDS: DILTIAZEM 50 MG in SODIUM CHLORIDE 0.9% 40 ML IV SCH (03:37)
[2018-01-01 05:28] LABS: Glucose,Whole Blood 162 mg/dL (75-99)
[2018-01-01 05:38] LABS: Appearance,Urine Cloudy (Clear); Bacteria,Urine Rare /hpf; Bilirubin,Urine Negative (Negative); Blood,Urine Negative (Negative); Color,Urine Yellow; Glucose,Urine (UA) Negative (Negative); Hyaline Casts,Urine 17 /lpf (0-2); Ketones,Urine Negative (Negative); Leukocyte Esterase,Urine Negative (Negative); Mucus,Urine Rare /hpf; Nitrite,Urine Negative (Negative); PH, Urine 5.5 (5.0-8.0); Protein,Urine 1+ (Negative); RBC,Urine 3 /hpf (0-5); Specific Gravity,Urine 1.021 (1.001-1.035); Squamous Epithelial Cell,Urine 33 /hpf (0-4); Urobilinogen,Urine <2.0 mg/dL (<2.0)
[2018-01-01] MEDS: LEVOTHYROXINE 25 MCG TAB PO SCH (06:14)
[2018-01-01] MEDS: INSULIN ASPART 100 UNIT/ML 1 ML 10 ML VIAL SQ SCH ×4 (06:14→21:19)
[2018-01-01] MEDS: PANTOPRAZOLE 40 MG TABLET PO SCH (06:15)
[2018-01-01 07:46] LABS: Anisocytosis Slight; Basophils % (A) 0 %; Eosinophils # (A) 0.1 k/uL (0-0.7); Eosinophils % (A) 1 %; HCT 48.2 % (34.0-46.0); Hypochromasia Marked; Lymphocytes # (A) 0.5 k/uL (1.0-4.8); Lymphocytes % (A) 4 %; MCH 29.6 pg (25.0-35.0); MCV 102.1 fL (80.0-100.0); Macrocytosis Moderate; Mean Platelet Volume 7.4; Monocytes # (A) 0.4 k/uL (0-1.0); Monocytes % (A) 3 %; Neutrophils # (A) 10.9 k/uL (1.3-7.7); Neutrophils % (A) 92 %; Platelet Count 279 k/uL (150-450); RBC 4.72 m/uL (3.80-5.40); RDW 17.4 % (11.5-15.5); WBC 11.9 k/uL (3.8-10.6)
[2018-01-01 07:53] LABS: Prothrombin Time 48.7 sec (9.0-12.0)
[2018-01-01 08:04] LABS: Calcium 9.7 mg/dL (8.4-10.2); Potassium 4.7 mmol/L (3.5-5.1)
[2018-01-01 08:08] LABS: INR 5.4 (<1.2)
[2018-01-01] MEDS: BUDESONIDE 1 MG/2 ML NEBU INHALATION SCH ×2 (08:32→21:00)
[2018-01-01] MEDS: FORMOTEROL FUMARATE 20 MCG/2 ML NEBU INHALATION SCH ×2 (08:32→21:01)
[2018-01-01] MEDS: IPRATROPIUM-ALBUTEROL 3 ML NEB INHALATION SCH ×4 (08:32→21:23)
--- NOTE | 2018-01-01 08:44 | P.CRDCN ---
History of Present Illness Consult date: 01/01/18 Requesting physician: Christopher Young Consult reason: shortness of breath Chief complaint: Shortness of breath History of present illness: This is a 67-year-old female patient with past medical history significant for chronic atrial fibrillation, on oral anticoagulation with Coumadin, history of CVA causing a persistent right-sided flaccidity as well as slurring of speech and expressive aphasia, history of COPD on home O2, hypertension, hyperlipidemia, GERD, anemia, who was just recently discharged from the hospital, return to the hospital with symptoms of shortness of breath. Patient did have a recent hospitalization with COPD exacerbation and bilateral lower extremity cellulitis. Chest x-ray this admission did not reveal any acute cardiopulmonary process. Venous duplex study of the left lower extremity was performed which was negative for DVT. Venous duplex study of the right upper extremity was also performed which was negative for DVT. EKG on admission shows atrial fibrillation with controlled ventricular response. CAT scan of the brain shows old left parietal cortical infarct. The sooner old infarct right posterior frontal lobe. No acute abnormality. Blood pressure on arrival 100/70 with a heart rate of 118, temperature 97.0 she was 96 % on room air. I pressure this morning 110/60 with a heart rate of 90. Laboratory data was reviewed, INR this morning is up to 6.4, white blood cell count 11.9, hemoglobin 14, platelet count 279. Sodium 138, potassium 4.7, BUN 56, creatinine 1.3, BUN on admission was 24 and creatinine 0.9. She is currently on a Cardizem drip. At the time of my examination this morning, patient states her breathing is significantly improved, she is quite eager to be discharged home today. Alert and oriented. Past Medical History Past Medical History: Atrial Fibrillation, Chest Pain / Angina, Heart Failure, COPD, CVA/TIA, GERD/Reflux, Hyperlipidemia, Hypertension, Osteoarthritis (OA), Pneumonia, Renal Disease Additional Past Medical History / Comment(s): 2001 CVA with R sided weakness arm /leg/contracted R hand and dysphasia, Afib with RVR, cardiac valve disease, DJD , occasional back pain, bronchitis, UTIs, kidney infections, anemia, head injury. 2018 CVA with right side flaccid and dysphagia, recent hospitalization for COPD exacerbation in addition to a right lower lobectomy cellulitis. Recent treatment for enterococcus patient septicemia. History of Any Multi-Drug Resistant Organisms: None Reported Past Surgical History: Section, Hernia Repair, Orthopedic Surgery, Tonsillectomy Additional Past Surgical History / Comment(s): Incarcerated umbilical hernia repair/omentum resection, X2, L tibial IM nailing, teeth extractions. Past Anesthesia/Blood Transfusion Reactions: No Reported Reaction Past Psychological History: No Psychological Hx Reported Additional Psychological History / Comment(s): Lives in a senior apartment. Her daughter does help. She is a reformed smoker. No experience. No animals in the home Smoking Status: Current every day smoker Past Alcohol Use History: None Reported Additional Past Alcohol Use History / Comment(s): has smoked off and on since age 14 Past Drug Use History: None Reported - Past Family History Father Family Medical History: No Reported History Additional Family Medical History / Comment(s): FATHER WAS HEALTHY AND LIVED TO BE 96YRS OLD. Mother Family Medical History: Cancer Additional Family Medical History / Comment(s): MOTHER HAD BREAST CANCER. Medications and Allergies Home Medications Medication Instructions Recorded Confirmed Type Digoxin [Lanoxin] 250 mcg PO DAILY #30 tab 04/27/15 12/29/17 Rx Tiotropium Maynard [Spiriva] 1 cap INHALATION RT-DAILY 05/01/17 12/29/17 History Albuterol Nebulized [Ventolin 2.5 mg INHALATION RT-QID PRN 08/17/17 12/29/17 History Nebulized] Metoprolol Tartrate [Lopressor] 50 mg PO DAILY 11/02/17 12/29/17 History Ibuprofen [Motrin] 800 mg PO TID PRN 12/18/17 12/29/17 History Levothyroxine Sodium [Synthroid] 25 mcg PO DAILY 12/18/17 12/29/17 History Warfarin [Coumadin] 5 mg PO Q48H 12/18/17 12/29/17 History Warfarin [Coumadin] 7.5 mg PO Q48H 12/18/17 12/29/17 History metFORMIN HCL [Glucophage] 500 mg PO DAILY 12/18/17 12/29/17 History Acetaminophen Tab [Tylenol] 650 mg PO Q6HR PRN tab 12/23/17 12/29/17 Rx Budesonide-Formot 160-4.5 Mcg 2 puff INHALATION RT-BID #1 puff 12/23/17 Rx [Symbicort 160-4.5 Mcg Inhaler] Cephalexin [Keflex] 500 mg PO Q8HR #21 cap 12/23/17 12/29/17 Rx Metoprolol Tartrate [Lopressor] 25 mg PO HS #30 tab 12/23/17 12/29/17 Rx Spironolactone [Aldactone] 12.5 mg PO DAILY #30 tab 12/23/17 12/29/17 Rx Furosemide [Lasix] 20 mg PO DAILY 12/29/17 12/29/17 History Allergies Allergy/AdvReac Type Severity Reaction Status Date / Time No Known Allergies Allergy Verified 12/29/17 12:20 Physical Exam Vitals: Vital Signs Temp Pulse Pulse Resp BP Pulse Ox 01/01/18 04:00 97.2 F L 65 18 110/60 93 L 01/01/18 00:00 96.9 F L 70 18 120/80 92 L 12/31/17 20:00 96.7 F L 79 18 128/87 93 L 12/31/17 19:39 80 93 L 12/31/17 15:43 97.0 F L 74 18 107/64 94 L 12/31/17 12:00 97.3 F L 93 18 117/77 93 L Intake and Output 12/31/17 01/01/18 01/01/18 22:59 06:59 14:59 Intake Total 170 50 240 Balance 170 50 240 Intake: Intake, IV Titration 50 50 Amount Diltiazem 50 mg In Sodium 50 50 Chloride 0.9% 40 ml @ 5 MG/HR 5 mls/hr IV .Q10H [facility] Rx#:[id number] Oral 120 240 Other: Voiding Method Bedpan Bedpan Diaper Diaper Incontinent Incontinent # Voids 0 0 1 Weight 110 kg Gen. appearance the patient is not in respiratory distress even at rest. The patient has some facial asymmetry related to previous CVA. She is not using accessory muscles of breathing. Head exam was generally normal. There was no scleral icterus or corneal arcus. Mucous membranes were moist. Neck was supple and without jugular venous distension, thyromegaly, or carotid bruits. Carotids were easily palpable bilaterally. There was no adenopathy. Lungs sounds are diminished bilaterally. There is some bibasilar crackles. Scattered expiratory wheezes heard throughout the lung moraes bilaterally especially upon forceful respiratory maneuvers. Heart sounds are irregular, positive S1-S2 and there is a faint systolic ejection murmur grade 2/6 heard throughout the precordium. Abdominal exam revealed normal bowel sounds. The abdomen was soft, non-tender, and without masses, organomegaly, or appreciable enlargement of the abdominal aorta. Examination of the extremities revealed easily palpable radial, femoral and pedal pulses. There was no cyanosis, clubbing and the patient has +1-2 pitting edema in lower extremities bilaterally. There is also an ongoing cellulitis of the right lower extremity which is improved compared to previous evaluations. Neurologically the patient is awake. The patient is aphasic. She has chronic hemiplegia on the right side with right-sided spasticity and weakness. Facial asymmetry is present. There is expressive aphasia. Results 01/01/18 07:21 01/01/18 07:21 Coagulation 12/31/17 01/01/18 01/01/18 Range/Units 08:55 01:39 07:21 PT 98.6 H 58.6 H 48.7 H (9.0-12.0) sec CBC 01/01/18 Range/Units 07:21 WBC 11.9 H (3.8-10.6) k/uL RBC 4.72 (3.80-5.40) m/uL Hgb 14.0 (11.4-16.0) gm/dL Hct 48.2 H (34.0-46.0) % Plt Count 279 (150-450) k/uL Comprehensive Metabolic Panel 01/01/18 Range/Units 07:21 Sodium 138 (137-145) mmol/L Potassium 4.7 (3.5-5.1) mmol/L Chloride 99 (98-107) mmol/L Carbon Dioxide 25 (22-30) mmol/L BUN 56 H (7-17) mg/dL Creatinine 1.32 H (0.52-1.04) mg/dL Glucose 227 H (74-99) mg/dL Calcium 9.7 (8.4-10.2) mg/dL Current Medications Generic Name Dose Route Start Last Admin Trade Name Freq PRN Reason Stop Dose Admin Acetaminophen 650 mg 12/29/17 16:18 Tylenol Tab PO Q6HR PRN Mild Pain or Fever > 100.5 Hydrocodone Bitart/Acetaminophen 1 each 12/29/17 16:20 Downey 5-325 PO Q6HR PRN MODERATE Pain Albuterol/Ipratropium 3 ml 12/29/17 15:04 Duoneb 0.5 Mg-3 Mg/3 Ml Soln INHALATION RT-Q4H PRN Shortness Of Breath Or Wheezing Albuterol/Ipratropium 3 ml 12/29/17 20:00 12/31/17 19:39 Duoneb 0.5 Mg-3 Mg/3 Ml Soln INHALATION Not Given RT-QID [facility] Alprazolam 0.25 mg 12/29/17 16:20 Xanax PO TID PRN Anxiety Budesonide 1 mg 12/29/17 20:00 12/31/17 19:39 Pulmicort INHALATION Not Given RT-BID [facility] Digoxin 250 mcg 12/30/17 09:00 12/31/17 08:02 Lanoxin PO 250 mcg DAILY [facility] Administration Formoterol Fumarate 20 mcg 12/29/17 20:00 12/31/17 19:39 Perforomist INHALATION Not Given RT-BID [facility] Furosemide 40 mg 01/01/18 09:00 Lasix PO DAILY [facility] Diltiazem HCl 50 mg/ Sodium 50 mls @ 5 mls/hr 12/31/17 00:00 01/01/18 03:37 Chloride IV 5 mg/hr .Q10H [facility] 5 mls/hr Administration 5 MG/HR Cefepime HCl 2 gm/ Sodium 50 mls @ 100 mls/hr 01/01/18 09:00 Chloride IVPB Q24HR [facility] Insulin Aspart 0 unit 12/29/17 17:30 01/01/18 06:14 Novolog SQ 1 unit ACHS [facility] Administration Protocol Levothyroxine Sodium 25 mcg 12/30/17 06:00 01/01/18 06:14 Synthroid PO 25 mcg DAILY@0600 [facility] Administration Metformin HCl 500 mg 12/30/17 09:00 12/31/17 08:03 Glucophage PO 500 mg DAILY [facility] Administration Metoprolol Tartrate 50 mg 12/30/17 09:00 12/31/17 08:03 Lopressor PO 50 mg DAILY [facility] Administration Metoprolol Tartrate 25 mg 12/29/17 21:00 12/31/17 22:30 Lopressor PO 25 mg HS [facility] Administration Morphine Sulfate 2 mg 12/29/17 21:03 Morphine Sulfate (Inj) IVP Q4H PRN Pain/Discomfort Pantoprazole Sodium 40 mg 12/30/17 07:30 01/01/18 06:15 Protonix PO 40 mg [id number]-[id number] [facility] Administration Silver Sulfadiazine 1 applic 12/29/17 22:30 12/31/17 22:32 Silvadene Cream TOPICAL 1 applic BID [facility] Administration Spironolactone 12.5 mg 12/30/17 09:00 12/31/17 08:03 Aldactone PO 12.5 mg DAILY [facility] Administration Temazepam 15 mg 12/29/17 16:20 Restoril PO HS PRN Insomnia Warfarin Sodium 7.5 mg 12/29/17 16:30 12/29/17 21:31 Coumadin PO 7.5 mg Q48H [facility] Administration Warfarin Sodium 5 mg 12/30/17 16:30 12/30/17 17:18 Coumadin PO 5 mg Q48H [facility] Administration Intake and Output 12/31/17 01/01/18 01/01/18 22:59 06:59 14:59 Intake Total 170 50 240 Balance 170 50 240 Intake: Intake, IV Titration 50 50 Amount Diltiazem 50 mg In Sodium 50 50 Chloride 0.9% 40 ml @ 5 MG/HR 5 mls/hr IV .Q10H [facility] Rx#:[id number] Oral 120 240 Other: Voiding Method Bedpan Bedpan Diaper Diaper Incontinent Incontinent # Voids 0 0 1 Weight 110 kg 01/01/18 07:21 01/01/18 07:21 EKG Interpretations (text) EKG shows atrial fibrillation with a controlled ventricular response Assessment and Plan Plan: Assessment and plan #1 symptoms of shortness of breath, likely secondary to patient's advanced COPD , no evidence of congestive cardiac failure. #2 bilateral lower extremity cellulitis, improving, patient has bilateral Heraclio wraps in place. #3 chronic persistent atrial fibrillation, on Coumadin for anticoagulation, supratherapeutic this morning #4 COPD #5 CVA with right-sided hemiplegia and extensive the fascia #6 hypertension #7 hyperlipidemia #8 nicotine dependence #9 mitral stenosis and tricuspid regurg Plan We will discontinue the Cardizem drip. Continue beta darline, discontinue Lanoxin. Patient continues to be on, INR Is Elevated This Morning at 6.4, We Will Hold the Coumadin. Hold the Lasix Today and Recheck Lytes BUN and Creatinine in the Morning Continue to Monitor Daily INRs. We will repeat an echocardiogram with Doppler study. Her most recent echocardiogram with Doppler study was performed in April which revealed an ejection fraction of 45-50%, moderate mitral regurgitation and severe tricuspid regurgitation with moderate pulmonary hypertension. Further recommendations to follow. DNP note has been reviewed, I agree with a documented findings and plan of care. Patient was seen and examined.
[2018-01-01] MEDS ORDERED: FUROSEMIDE 40 MG TAB PO SCH (09:00)
[2018-01-01] MEDS: CEFEPIME 2 GM in SODIUM CHLORIDE 0.9% 50 ML IVPB SCH (09:23)
[2018-01-01] MEDS: metFORMIN 500 MG TAB PO SCH (09:24)
[2018-01-01] MEDS: METOPROLOL TARTRATE 50 MG TAB PO SCH (09:25)
[2018-01-01] MEDS: SPIRONOLACTONE 25 MG TAB PO SCH (09:25)
[2018-01-01] MEDS: SILVER sulfADIAZINE Cream 400 GM 1 APPLIC APPLIC TOPICAL SCH ×2 (09:26→21:18)
[2018-01-01 11:41] LABS: Glucose,Whole Blood 210 mg/dL (75-99)
--- NOTE | 2018-01-01 12:56 | P.PN ---
Subjective Progress Note Date: 01/01/18 Principal diagnosis: Acute exacerbation of buying chronic COPD and chronic systolic congestive heart failure with ejection fraction 45-50%. 57-year-old female patient is known to me from previous admissions. The patient came in to the [facility] about yesterday because of worsening shortness of breath. The patient apparently got worse over the past few days. The patient has history of CVA and she has expressive aphasia. Heart with a care with the patient. According to the the patient was getting progressively more weak and more short of breath. She was in the hospital and on very much aware of this patient. She was being treated for a right lower extremity cellulitis and she was complaining course of Keflex on outpatient basis. No significant leukocytosis. Function is stable for now. INR is therapeutic. Urine analysis was abnormal and it showed white cells raising the suspicion for an infection knowing that there was some few bacteria is and this is to be further followed up by a urine culture. She is afebrile. She is hemodynamically stable. The chest x-ray shows cardiomegaly. As far as her history, this woman has COPD and she has been treated in the past for CHF and chronic atrial fibrillation. She has had a previous left sided CVA with extensive aphasia and right-sided weakness and she was the hospital recently for Alice distress and respiratory failure attributed to COPD exacerbation. She continues to smoke cigarettes. Her echocardiogram from 05/01 showed ejection fraction 45-50% consistent with mild impairment that she has a PA pressure of 48. She has had previous urinary tract infections. Her most recent blood culture was positive for enterococcus patient probably due to a soft tissue infection/right lower extremity cellulitis for which the patient was completing outpatient course of Kefzol. On 12/31/2017, the patient is doing well. No significant shortness of breath. The sunrise of the right lower extremity is improving as the patient is currently on IV antibiotics. The patient is on IV. Meanwhile I noted that the patient's PT/INR is supratherapeutic with an INR level of above 10 and we give this patient 2.5 mg of oral vitamin K. The patient is not having any signs of bleeding. She is also on Cardizem drip at 5 g an hour and the rate is controlled in terms of her atrial fibrillation. He is on metoprolol 50 mg the morning and 20 5 in the evening and digoxin 0.25 mg for rate. She is also on IV Lasix and she started to become prerenal. I'm going to stop her IV Lasix for now knowing that the creatinine is on the rise compared to her baseline. She has been negative fluid balance and she is improved. Coumadin is on hold. The patient is seen again today or 2017 in follow-up on the selective care unit. She is currently resting comfortably in bed. No acute respiratory distress. Maintaining O2 saturations in the 90s on room air. Wound culture positive for Klebsiella pneumoniae and Klebsiella oxytoca, urine cultures positive for Klebsiella pneumoniae and enterococcus faecium. White count 11.9. Hemoglobin 14.0. INR 5.4. Creatinine 1.32. Objective - Vital Signs Vital signs: Vital Signs Temp 97.6 F 01/01/18 08:55 Pulse 80 01/01/18 11:30 Resp 16 01/01/18 12:13 BP 100/70 01/01/18 11:30 Pulse Ox 94 L 01/01/18 12:13 Intake & Output 12/31/17 01/01/18 01/01/18 18:59 06:59 18:59 Intake Total 650 50 240 Balance 650 50 240 Weight 110 kg Intake: Intake, IV Titration 50 50 Amount Diltiazem 50 mg In Sodium 50 50 Chloride 0.9% 40 ml @ 5 MG/HR 5 mls/hr IV .Q10H [facility] Rx#:[id number] Oral 600 240 Other: Voiding Method Bedpan Bedpan Diaper Diaper Incontinent Incontinent # Voids 0 0 1 - Exam Gen. appearance the patient is not in respiratory distress even at rest. The patient has some facial asymmetry related to previous CVA. She is not using accessory muscles of breathing. Head exam was generally normal. There was no scleral icterus or corneal arcus. Mucous membranes were moist. Neck was supple and without jugular venous distension, thyromegaly, or carotid bruits. Carotids were easily palpable bilaterally. There was no adenopathy. Lungs sounds are diminished bilaterally. There is some bibasilar crackles. Scattered expiratory wheezes heard throughout the lung moraes bilaterally especially upon forceful respiratory maneuvers. Heart sounds are irregular, positive S1-S2 and there is a faint systolic ejection murmur grade 2/6 heard throughout the precordium. Abdominal exam revealed normal bowel sounds. The abdomen was soft, non-tender, and without masses, organomegaly, or appreciable enlargement of the abdominal aorta. Examination of the extremities revealed easily palpable radial, femoral and pedal pulses. There was no cyanosis, clubbing and the patient has +1-2 pitting edema in lower extremities bilaterally. There is also an ongoing cellulitis of the right lower extremity which is improved compared to previous evaluations. Neurologically the patient is awake. The patient is aphasic. She has chronic hemiplegia on the right side with right-sided spasticity and weakness. Facial asymmetry is present. There is expressive aphasia. - Labs CBC & Chem 7: 01/01/18 07:21 01/01/18 07:21 Labs: Abnormal Lab Results - Last 24 Hours (Table) 12/31/17 12/31/17 01/01/18 Range/Units 16:28 21:00 01:39 WBC (3.8-10.6) k/uL Hct (34.0-46.0) % MCV (80.0-100.0) fL MCHC (31.0-37.0) g/dL RDW (11.5-15.5) % Neutrophils # (1.3-7.7) k/uL Lymphocytes # (1.0-4.8) k/uL PT 58.6 H (9.0-12.0) sec INR 6.4 H* (<1.2) BUN (7-17) mg/dL Creatinine (0.52-1.04) mg/dL Glucose (74-99) mg/dL POC Glucose (mg/dL) 186 H 207 H (75-99) mg/dL Urine Appearance (Clear) Urine Protein (Negative) Urine WBC (0-5) /hpf Ur Squamous Epith Cells (0-4) /hpf Urine Bacteria (None) /hpf Hyaline Casts (0-2) /lpf Urine Mucus (None) /hpf 01/01/18 01/01/18 01/01/18 Range/Units 04:30 05:27 07:21 WBC 11.9 H (3.8-10.6) k/uL Hct 48.2 H (34.0-46.0) % MCV 102.1 H (80.0-100.0) fL MCHC 29.0 L (31.0-37.0) g/dL RDW 17.4 H (11.5-15.5) % Neutrophils # 10.9 H (1.3-7.7) k/uL Lymphocytes # 0.5 L (1.0-4.8) k/uL PT (9.0-12.0) sec INR (<1.2) BUN (7-17) mg/dL Creatinine (0.52-1.04) mg/dL Glucose (74-99) mg/dL POC Glucose (mg/dL) 162 H (75-99) mg/dL Urine Appearance Cloudy H (Clear) Urine Protein 1+ H (Negative) Urine WBC 6 H (0-5) /hpf Ur Squamous Epith Cells 33 H (0-4) /hpf Urine Bacteria Rare H (None) /hpf Hyaline Casts 17 H (0-2) /lpf Urine Mucus Rare H (None) /hpf 01/01/18 01/01/18 01/01/18 Range/Units 07:21 07:21 11:30 WBC (3.8-10.6) k/uL Hct (34.0-46.0) % MCV (80.0-100.0) fL MCHC (31.0-37.0) g/dL RDW (11.5-15.5) % Neutrophils # (1.3-7.7) k/uL Lymphocytes # (1.0-4.8) k/uL PT 48.7 H (9.0-12.0) sec INR 5.4 H* (<1.2) BUN 56 H (7-17) mg/dL Creatinine 1.32 H (0.52-1.04) mg/dL Glucose 227 H (74-99) mg/dL POC Glucose (mg/dL) 210 H (75-99) mg/dL Urine Appearance (Clear) Urine Protein (Negative) Urine WBC (0-5) /hpf Ur Squamous Epith Cells (0-4) /hpf Urine Bacteria (None) /hpf Hyaline Casts (0-2) /lpf Urine Mucus (None) /hpf Microbiology - Last 24 Hours (Table) 01/01/18 04:30 Urine Culture - Preliminary Urine,Voided 12/29/17 21:21 Gram Stain - Final Leg - Right Wound Culture - Final Klebsiella pneumoniae Klebsiella oxytoca 09/08/18 18:45 Urine Culture - Final Urine,Voided Klebsiella pneumoniae Enterococcus faecium 12/29/17 12:00 Blood Culture - Preliminary Blood No Growth after 48 hours Assessment and Plan Assessment: Assessment 1 shortness of breath, multifactorial. The patient has advanced COPD and the patient has also component of CHF and a chest x-ray showing multi-chamber cardiac enlargement. It's reasonable to repeat an echocardiogram to get a follow-up on the ejection fraction and pulmonary hypertension. Clinically the patient improved and the patient is less short of breath compared to yesterday. 2 lower extremity cellulitis, wound positive for Klebsiella pneumoniae and Klebsiella oxytoca 3 urinary tract infection secondary to Klebsiella pneumoniae and enterococcus faecium 4 chronic atrial fibrillation, on long-term anticoagulation with warfarin the patient's PT/INR is supra therapeutic currently 5.4 5 COPD 6 CVA with right-sided hemiplegia and extensive aphasia and the patient is essentially bedridden 7 hypertension 8 hyperlipidemia 9 smoker 10 suspected urine tract infection 11 chronic atrial fibrillation the patient on Cardizem drip at 5 mg an hour for rate control 12 prerenal azotemia related to Lasix. Plan The patient was seen and evaluated by Dr. Troy. She is currently stable from the pulmonary standpoint. We'll continue DuoNeb inhalations, Pulmicort and Perforomist inhalations. She is on cefepime. Doppler of the right upper extremity was negative for DVT. Computed tomography scan of the brain revealed no acute intracranial abnormalities. We will continue to follow and make further recommendations based on her clinical status. I, the cosigning physician, performed a history & physical examination of the patient. Lungs sounds are clear. Maintaining good O2 saturations in the 90s on room air. I discussed the assessment and plan of care with my nurse practitioner, Vicki Guerrero. I attest to the above note as dictated by her.
[2018-01-01 16:50] LABS: Glucose,Whole Blood 216 mg/dL (75-99)
--- NOTE | 2018-01-01 17:51 | P.PN ---
Subjective Progress Note Date: 01/01/18 Progress note being dictated for Dr. Young Interval history: This a 67-year-old female admitted with acute COPD exacerbation, acute CHF exacerbation, cellulitis, enterococcus sepsis and multiple other medical issues. Maintained on IV antibiotics. Afebrile. INR greater than 10, no signs or symptoms of bleeding, vitamin K ordered. Last night Atrial fibrillation with RVR, Cardizem drip initiated, currently controlled. Maintained on Lasix IV push, renal function worsening, creatinine 1.25. Potassium 5.4. Afebrile. 01/01/2018 yesterday afternoon, IVs changed to Unasyn .During the night, staff reported flushed face, increased lethargy accompanied by increased swelling/ redness of the right arm. Doppler reported no DVT of right arm. Head CT reported no acute intracranial abnormality. Wound cultures positive for Klebsiella pneumoniae and Klebsiella oxytoca, urine cultures positive for Klebsiella pneumoniae and enterococcus faecium. Antibiotics further adjusted as per infectious disease. Afebrile. Creatinine 1.32. Potassium improved, 4.7. Received oral vitamin K for INR greater than 10 yesterday, INR currently down to 5.4. Received another dose of vitamin K. Telemetry atrial fibrillation with controlled ventricular rate. Review of systems: CONSTITUTIONAL: No fever, no chills, no fatigue. HEENT: No recent visual problems or hearing problems. Denied any sore throat. CARDIOVASCULAR: No chest pain, no palpitations, no syncope. PULMONARY: No shortness of breath, no cough, no hemoptysis. GASTROINTESTINAL: No diarrhea, no nausea, no vomiting, no abdominal pain. Normoactive bowel sounds. NEUROLOGICAL: No headaches, generalized weakness, Chronic right-sided hemiaplasia with facial asymmetry. HEMATOLOGICAL: Denies any bleeding or petechiae. GENITOURINARY: Denies any burning micturition, frequency, or urgency. ENDOCRINE: Denies any polyuria or polydipsia. PSYCHIATRIC: No anxiety, no depression The rest of the 14 point review of systems is negative Active Medications Acetaminophen (Tylenol Tab) 650 mg PO Q6HR PRN PRN Reason: Mild Pain or Fever > 100.5 Hydrocodone Bitart/Acetaminophen ([place] 5-325) 1 each PO Q6HR PRN PRN Reason: MODERATE Pain Albuterol/Ipratropium (Duoneb 0.5 Mg-3 Mg/3 Ml Soln) 3 ml INHALATION RT-Q4H PRN PRN Reason: Shortness Of Breath Or Wheezing Albuterol/Ipratropium (Duoneb 0.5 Mg-3 Mg/3 Ml Soln) 3 ml INHALATION RT-QID [facility] Last Admin: 01/01/18 16:33 Dose: Not Given Alprazolam (Xanax) 0.25 mg PO TID PRN PRN Reason: Anxiety Budesonide (Pulmicort) 1 mg INHALATION RT-BID [facility] Last Admin: 01/01/18 08:32 Dose: 1 mg Formoterol Fumarate (Perforomist) 20 mcg INHALATION RT-BID [facility] Last Admin: 01/01/18 08:32 Dose: 20 mcg Cefepime HCl 2 gm/ Sodium (Chloride) 50 mls @ 100 mls/hr IVPB Q24HR [facility] Last Admin: 01/01/18 09:23 Dose: 100 mls/hr Insulin Aspart (Novolog) 0 unit SQ ACHS [facility]; Protocol Last Admin: 01/01/18 12:44 Dose: 3 unit Levothyroxine Sodium (Synthroid) 25 mcg PO DAILY@0600 [facility] Last Admin: 01/01/18 06:14 Dose: 25 mcg Metformin HCl (Glucophage) 500 mg PO DAILY [facility] Last Admin: 01/01/18 09:24 Dose: 500 mg Metoprolol Tartrate (Lopressor) 50 mg PO DAILY [facility] Last Admin: 01/01/18 09:25 Dose: 50 mg Metoprolol Tartrate (Lopressor) 25 mg PO HS [facility] Last Admin: 12/31/17 22:30 Dose: 25 mg Morphine Sulfate (Morphine Sulfate (Inj)) 2 mg IVP Q4H PRN PRN Reason: Pain/Discomfort Pantoprazole Sodium (Protonix) 40 mg PO AC-BRKFST [facility] Last Admin: 01/01/18 06:15 Dose: 40 mg Silver Sulfadiazine (Silvadene Cream) 1 applic TOPICAL BID [facility] Last Admin: 01/01/18 09:26 Dose: Not Given Spironolactone (Aldactone) 12.5 mg PO DAILY [facility] Last Admin: 01/01/18 09:25 Dose: 12.5 mg Temazepam (Restoril) 15 mg PO HS PRN PRN Reason: Insomnia Warfarin Sodium (Coumadin) 7.5 mg PO Q48H [facility] Last Admin: 12/29/17 21:31 Dose: 7.5 mg Warfarin Sodium (Coumadin) 5 mg PO Q48H [facility] Last Admin: 12/30/17 17:18 Dose: 5 mg Objective - Vital Signs Vital signs: Vital Signs Temp 97.6 F 01/01/18 08:55 Pulse 80 01/01/18 11:30 Resp 16 01/01/18 12:13 BP 100/70 01/01/18 11:30 Pulse Ox 94 L 01/01/18 12:13 Intake & Output 12/31/17 01/01/18 01/01/18 18:59 06:59 18:59 Intake Total 650 50 480 Balance 650 50 480 Weight 110 kg Intake: Intake, IV Titration 50 50 Amount Diltiazem 50 mg In Sodium 50 50 Chloride 0.9% 40 ml @ 5 MG/HR 5 mls/hr IV .Q10H [facility] Rx#:[id number] Oral 600 480 Other: Voiding Method Bedpan Bedpan Bedpan Diaper Diaper Diaper Incontinent Incontinent Incontinent # Voids 0 0 1 - Exam PHYSICAL EXAM: VITAL SIGNS: As above GENERAL: Sitting up in bed, no acute distress. Expressive aphasia HEENT: Conjunctivae normal. eyes normal. Oral mucosa moist NECK: No JVD. No thyroid enlargement. No LNs CARDIOVASCULAR: S1, S2 muffled. Irregular, tachycardic, Systolic murmur RESPIRATION: Breath sounds diminished in the bases. No rhonchi, fine bibasilar crackles. Occasional scattered expiratory wheezing. ABDOMEN: Soft, nontender . No guarding. no masses palpable. No ascites, No hepatosplenomegaly.Bowel sounds heard. LEGS: Positive edema bilateral lower extremities. No cyanosis, no clubbing, Positive pedal pulses. Bilateral Heraclio wraps clean dry and intact PSYCHIATRY: Alert and oriented -3, mood and affect normal. NERVOUS SYSTEM: Chronic right-sided hemiaplasia with facial asymmetry. Skin: Right lower extremity cellulitis improving. Lymphatic system. No LN neck axilla or groin. Microbiology 01/01/18 04:30 Urine,Voided Urine Culture - Preliminary 12/29/17 21:21 Leg - Right Gram Stain - Final 12/29/17 21:21 Leg - Right Wound Culture - Final Klebsiella pneumoniae Klebsiella oxytoca 12/29/17 18:45 Urine,Voided Urine Culture - Final Klebsiella pneumoniae Enterococcus faecium 12/29/17 12:00 Blood Blood Culture - Preliminary No Growth after 48 hours - Labs CBC & Chem 7: 01/01/18 07:21 01/01/18 07:21 Labs: Abnormal Lab Results - Last 24 Hours (Table) 12/31/17 01/01/18 01/01/18 Range/Units 21:00 01:39 04:30 WBC (3.8-10.6) k/uL Hct (34.0-46.0) % MCV (80.0-100.0) fL MCHC (31.0-37.0) g/dL RDW (11.5-15.5) % Neutrophils # (1.3-7.7) k/uL Lymphocytes # (1.0-4.8) k/uL PT 58.6 H (9.0-12.0) sec INR 6.4 H* (<1.2) BUN (7-17) mg/dL Creatinine (0.52-1.04) mg/dL Glucose (74-99) mg/dL POC Glucose (mg/dL) 207 H (75-99) mg/dL Urine Appearance Cloudy H (Clear) Urine Protein 1+ H (Negative) Urine WBC 6 H (0-5) /hpf Ur Squamous Epith Cells 33 H (0-4) /hpf Urine Bacteria Rare H (None) /hpf Hyaline Casts 17 H (0-2) /lpf Urine Mucus Rare H (None) /hpf 01/01/18 01/01/18 01/01/18 Range/Units 05:27 07:21 07:21 WBC 11.9 H (3.8-10.6) k/uL Hct 48.2 H (34.0-46.0) % MCV 102.1 H (80.0-100.0) fL MCHC 29.0 L (31.0-37.0) g/dL RDW 17.4 H (11.5-15.5) % Neutrophils # 10.9 H (1.3-7.7) k/uL Lymphocytes # 0.5 L (1.0-4.8) k/uL PT 48.7 H (9.0-12.0) sec INR 5.4 H* (<1.2) BUN (7-17) mg/dL Creatinine (0.52-1.04) mg/dL Glucose (74-99) mg/dL POC Glucose (mg/dL) 162 H (75-99) mg/dL Urine Appearance (Clear) Urine Protein (Negative) Urine WBC (0-5) /hpf Ur Squamous Epith Cells (0-4) /hpf Urine Bacteria (None) /hpf Hyaline Casts (0-2) /lpf Urine Mucus (None) /hpf 01/01/18 01/01/18 01/01/18 Range/Units 07:21 11:30 16:16 WBC (3.8-10.6) k/uL Hct (34.0-46.0) % MCV (80.0-100.0) fL MCHC (31.0-37.0) g/dL RDW (11.5-15.5) % Neutrophils # (1.3-7.7) k/uL Lymphocytes # (1.0-4.8) k/uL PT (9.0-12.0) sec INR (<1.2) BUN 56 H (7-17) mg/dL Creatinine 1.32 H (0.52-1.04) mg/dL Glucose 227 H (74-99) mg/dL POC Glucose (mg/dL) 210 H 216 H (75-99) mg/dL Urine Appearance (Clear) Urine Protein (Negative) Urine WBC (0-5) /hpf Ur Squamous Epith Cells (0-4) /hpf Urine Bacteria (None) /hpf Hyaline Casts (0-2) /lpf Urine Mucus (None) /hpf Microbiology - Last 24 Hours (Table) 01/01/18 04:30 Urine Culture - Preliminary Urine,Voided 12/29/17 21:21 Gram Stain - Final Leg - Right Wound Culture - Final Klebsiella pneumoniae Klebsiella oxytoca 12/29/17 18:45 Urine Culture - Final Urine,Voided Klebsiella pneumoniae Enterococcus faecium 12/29/17 12:00 Blood Culture - Preliminary Blood No Growth after 48 hours Assessment and Plan Assessment: -shortness of breath, multifactorial; secondary to advanced COPD, acute CHF exacerbation, probable diastolic dysfunction, aortic stenosis and severe pulmonary hypertension -Enterococcus faecalis ,lower extremity cellulitis -Chronic Atrial fibrillation: With rapid ventricular rate currently controlled on Cardizem drip -Coumadin coagulopathy -COPD without any significant exacerbation -Hyperlipidemia -Hypertension -Coronary artery disease -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 -Hyperkalemia Plan: Continue current medication regime ,monitoring and symptomatic treatment. Antibiotics/Wound Care as per Infectious disease. Vitamin K repeated. Lasix discontinued, worsening renal function. Metformin discontinued, Lantus added to med regime with close monitoring of Accu-Cheks .Coumadin remains on hold.close monitoring of INR, renal function, electrolytes with repeat labs ordered for a.m. further recommendations to follow. The impression and plan of care has been dictated as directed. : I performed a history and examination of this patient, discussed the same with the dictator. I agree with the dictator's note ,documented as a scribe. Any additional findings or plans will be noted.
--- NOTE | 2018-01-01 18:18 | CONS ---
CONSULTATION DATE OF SERVICE: 01/01/2018 REASON FOR CONSULTATION: 1. Bilateral lower extremity cellulitis and wound. 2. Urinary tract infection. HISTORY OF PRESENT ILLNESS: The patient is a 67-year-old female with a past medical history significant for CVA with residual right-sided weakness. She came to the ER at [facility] on 12/30/2017 with the chief complaints of difficulty breathing and back pain which apparently had been getting worse for the last day or two before she presented to hospital. Patient also has a history of recurrent lower extremity cellulitis. She was noticed to have more swelling and redness to both legs. The right leg did have a small wound that has been cultured. The patient also was noticed to have a positive UA. The patient has been afebrile, though on presentation she did have a mildly elevated white count of 10.7. The patient did have a UA on admission, 12/29, which showed large leukocyte esterases, with 39 WBCs. Blood culture is currently showing Klebsiella pneumoniae and Enterococcus faecium that was penicillin-sensitive with the leg wound showing Klebsiella as well. The patient initially was on cefazolin, was switched to Unasyn last evening. Last night the patient was noted to be flushed by the RN. They did call me regarding this patient and concern about possible drug reaction. However, the patient did not have any rash at that time. No difficulty breathing or any tongue swelling was noticed or any fever. Antibiotic was subsequently switched over to cefepime pending evaluation this morning. At the time of my evaluation this morning, the patient is afebrile. She is feeling better. The patient denies having any chest pain, shortness of breath or any cough to me. No abdominal pain and no diarrhea has been reported. REVIEW OF SYSTEM: Positive points have been mentioned in the HPI. Rest of the systems have been negative. PAST MEDICAL HISTORY: 1. Atrial fibrillation. 2. Congestive heart failure. 3. COPD. 4. CVA, TIA. 5. Hypertension. 6. Hyperlipidemia. 7. Osteoarthritis. 8. Pneumonia. 9. Renal insufficiency. 10.History of recurrent lower extremity cellulitis. PAST SURGICAL HISTORY: 1. . 2. Hernia repair. 3. Tonsillectomy. 4. Incarcerated bowel, umbilical hernia repair with omental patch. 5. Left femur fracture repair with IM nailing. SOCIAL HISTORY: Positive for smoking. No drinking or drug use. FAMILY HISTORY: Mother with history of breast cancer. ALLERGIES: NO KNOWN DRUG ALLERGIES. CURRENT MEDICATIONS: 1. Tylenol. 2. [place]. 3. DuoNeb. 4. Xanax. 5. Pulmicort. 6. Cefepime 2 grams q.24. 7. NovoLog. 8. Synthroid. 9. Glucophage. 10.Lopressor. 11.Protonix. 12.Restoril. 13.Coumadin. PHYSICAL EXAMINATION: Her blood pressure is 123/75 with a pulse of 95, temperature 97.6. She is 95% on 2 L nasal cannula. General description is an elderly female up in the bed in no distress. No tachypnea or accessory muscle of respiration use. HEENT examination shows no pallor or scleral icterus. Oral mucosa membrane is moist. No pharyngeal erythema or thrush. NECK: Trachea is central. No thyromegaly. LUNGS: Unlabored breathing with decreased breath sounds at the bases. No wheeze or crackle. HEART: S1, S2. Regular rate and rhythm. ABDOMEN: Soft. No tenderness. No guarding or rigidity. EXTREMITIES: There is minimal erythema, small wound on the right leg, with no significant slough tissue. No surrounding induration or any drainage. Neurologically the patient is awake, alert, oriented x3. Mood and affect normal. LABS: Hemoglobin is 14, white count 11.9, BUN of 56, creatinine 1.32. Electrolytes have been normal. Urine cloudy with large leukocyte esterases. Urine culture currently showing Klebsiella pneumoniae and Enterococcus faecium. Right leg wound culture with klebsiella. DIAGNOSTIC IMPRESSION AND PLAN: Patient admitted to hospital with weakness and lethargy in a patient who did have a significantly positive UA with concern about possible gram-negative urinary tract infection with initial klebsiella and enterococcus. Also with bilateral lower extremity cellulitis, some superficial wound on the right leg, but no evidence of any deep abscess. PLAN: 1. Patient will be treated with cefepime, which should cover for both the UTI to be the klebsiella that is the predominant pathogen as well as the lower extremity cellulitis. 2. Mild Heraclio wrap to the leg to keep the swelling down. 3. Will follow up on clinical condition and adjust medication further if needed. Hopefully she will finish therapy with oral antibiotic on discharge. Continue with supportive care. MMODL / IJN: [id number] /
[2018-01-01 20:48] LABS: Glucose,Whole Blood 195 mg/dL (75-99)
[2018-01-01] MEDS ORDERED: INSULIN DETEMIR 100 UNIT/ML 10 ML VIAL SQ SCH (21:00)
--- NOTE | 2018-01-01 21:01 | P.CNNES ---
History of Present Illness Consult date: 01/01/18 History of Present Illness: The patient is a 67-year-old female with history of stroke with right josé- plegia. She was admitted to the hospital on December 30 with COPD exacerbation. She has presented with shortness of breath and swelling in the legs. She has multiple comorbidities including cellulitis to fibrillation COPD hypertension renal disease. She had a CAT scan of the brain in the emergency room which showed an old left parietal cortical infarct and old right posterior frontal lobe infarct. The patient has residual right hemiplegia from her stroke as well as aphasia the patient denies any headache or dizziness or new changes neurologically. She's apparently has had the right-sided weakness since her stroke in 2001. Neurology is requested to see the patient regarding lethargy. Review of Systems ROS unobtainable: due to mental status Past Medical History Past Medical History: Atrial Fibrillation, Chest Pain / Angina, Heart Failure, COPD, CVA/TIA, GERD/Reflux, Hyperlipidemia, Hypertension, Osteoarthritis (OA), Pneumonia, Renal Disease Additional Past Medical History / Comment(s): 2001 CVA with R sided weakness arm /leg/contracted R hand and dysphasia, Afib with RVR, cardiac valve disease, DJD , occasional back pain, bronchitis, UTIs, kidney infections, anemia, head injury. 2018 CVA with right side flaccid and dysphagia, recent hospitalization for COPD exacerbation in addition to a right lower lobectomy cellulitis. Recent treatment for enterococcus patient septicemia. History of Any Multi-Drug Resistant Organisms: None Reported Past Surgical History: Section, Hernia Repair, Orthopedic Surgery, Tonsillectomy Additional Past Surgical History / Comment(s): Incarcerated umbilical hernia repair/omentum resection, X2, L tibial IM nailing, teeth extractions. Past Anesthesia/Blood Transfusion Reactions: No Reported Reaction Past Psychological History: No Psychological Hx Reported Additional Psychological History / Comment(s): Lives in a senior apartment. Her daughter does help. She is a reformed smoker. No experience. No animals in the home Smoking Status: Current every day smoker Past Alcohol Use History: None Reported Additional Past Alcohol Use History / Comment(s): has smoked off and on since age 14 Past Drug Use History: None Reported - Past Family History Father Family Medical History: No Reported History Additional Family Medical History / Comment(s): FATHER WAS HEALTHY AND LIVED TO BE 96YRS OLD. Mother Family Medical History: Cancer Additional Family Medical History / Comment(s): MOTHER HAD BREAST CANCER. Medications and Allergies Home Medications Medication Instructions Recorded Confirmed Type Digoxin [Lanoxin] 250 mcg PO DAILY #30 tab 04/27/15 12/29/17 Rx Tiotropium [place] [Spiriva] 1 cap INHALATION RT-DAILY 05/01/17 12/29/17 History Albuterol Nebulized [Ventolin 2.5 mg INHALATION RT-QID PRN 08/17/17 12/29/17 History Nebulized] Metoprolol Tartrate [Lopressor] 50 mg PO DAILY 11/02/17 12/29/17 History Ibuprofen [Motrin] 800 mg PO TID PRN 12/18/17 12/29/17 History Levothyroxine Sodium [Synthroid] 25 mcg PO DAILY 12/18/17 12/29/17 History Warfarin [Coumadin] 5 mg PO Q48H 12/18/17 12/29/17 History Warfarin [Coumadin] 7.5 mg PO Q48H 12/18/17 12/29/17 History metFORMIN HCL [Glucophage] 500 mg PO DAILY 12/18/17 12/29/17 History Acetaminophen Tab [Tylenol] 650 mg PO Q6HR PRN tab 12/23/17 12/29/17 Rx Budesonide-Formot 160-4.5 Mcg 2 puff INHALATION RT-BID #1 puff 12/23/17 Rx [Symbicort 160-4.5 Mcg Inhaler] Cephalexin [Keflex] 500 mg PO Q8HR #21 cap 12/23/17 12/29/17 Rx Metoprolol Tartrate [Lopressor] 25 mg PO HS #30 tab 12/23/17 12/29/17 Rx Spironolactone [Aldactone] 12.5 mg PO DAILY #30 tab 12/23/17 12/29/17 Rx Furosemide [Lasix] 20 mg PO DAILY 12/29/17 12/29/17 History Allergies Allergy/AdvReac Type Severity Reaction Status Date / Time No Known Allergies Allergy Verified 12/29/17 12:20 Physical Examination - Vital Signs Vital Signs: Vital Signs Temp Pulse Pulse Resp BP Pulse Ox 01/01/18 16:45 97 F L 102 H 18 113/74 92 L 01/01/18 12:13 16 94 L 01/01/18 11:30 80 16 100/70 01/01/18 08:55 97.6 F 95 16 123/75 95 01/01/18 08:48 108 H 01/01/18 08:41 102 H 01/01/18 08:33 110 H 01/01/18 04:00 97.2 F L 65 18 110/60 93 L 01/01/18 00:00 96.9 F L 70 18 120/80 92 L Intake and Output 01/01/18 01/01/18 01/01/18 06:59 14:59 22:59 Intake Total 50 480 120 Balance 50 480 120 Intake: Intake, IV Titration 50 Amount Diltiazem 50 mg In Sodium 50 Chloride 0.9% 40 ml @ 5 MG/HR 5 mls/hr IV .Q10H [facility] Rx#:[id number] Oral 480 120 Other: Voiding Method Bedpan Bedpan Bedpan Diaper Diaper Diaper Incontinent Incontinent Incontinent # Voids 0 1 2 Weight 110 kg - Constitutional General appearance: obese - EENT EENT: PERRL, hearing intact, vision intact - Respiratory Respiratory: lungs clear - Cardiovascular Cardiovascular: regular rate - Neurologic Neurologic examination: Mental status the patient does have significant a aphasia. She is able to word a few words she does understand spoken language and follows commands. Cranial nerve examination: PERRL, EOMI, VFF Speech examination: motor aphasia Detailed motor examination: other (Right hemiplegia) Results - Laboratory Findings CBC and BMP: 01/01/18 07:21 01/01/18 07:21 Abnormal Lab Findings: Abnormal Labs 12/29/17 12/29/17 12/29/17 12:40 12:40 12:40 WBC 10.7 H Hct 46.1 H MCV 100.4 H MCHC 29.6 L RDW 16.8 H Neutrophils # 8.8 H Lymphocytes # PT 21.9 H INR 2.4 H Potassium Carbon Dioxide 31 H BUN 24 H Creatinine Glucose 177 H POC Glucose (mg/dL) Hemoglobin A1c Total Bilirubin 2.6 H Albumin 3.4 L Urine Appearance Urine Protein Urine Blood Urine Bilirubin Ur Leukocyte Esterase Urine RBC Urine WBC Ur Squamous Epith Cells Urine Bacteria Hyaline Casts Urine Mucus 12/29/17 12/29/17 12/29/17 12:40 18:38 18:45 WBC Hct MCV MCHC RDW Neutrophils # Lymphocytes # PT INR Potassium Carbon Dioxide BUN Creatinine Glucose POC Glucose (mg/dL) 129 H Hemoglobin A1c 7.5 H Total Bilirubin Albumin Urine Appearance Cloudy H Urine Protein 2+ H Urine Blood Small H Urine Bilirubin 1+ H Ur Leukocyte Esterase Large H Urine RBC 10 H Urine WBC 29 H Ur Squamous Epith Cells 31 H Urine Bacteria Few H Hyaline Casts 63 H Urine Mucus Occasional H 12/29/17 12/30/17 12/30/17 21:27 06:16 07:21 WBC Hct 47.3 H MCV 101.9 H MCHC 29.8 L RDW 17.1 H Neutrophils # 7.9 H Lymphocytes # 0.8 L PT INR Potassium Carbon Dioxide BUN Creatinine Glucose POC Glucose (mg/dL) 192 H 140 H Hemoglobin A1c Total Bilirubin Albumin Urine Appearance Urine Protein Urine Blood Urine Bilirubin Ur Leukocyte Esterase Urine RBC Urine WBC Ur Squamous Epith Cells Urine Bacteria Hyaline Casts Urine Mucus 12/30/17 12/30/17 12/30/17 07:21 07:21 11:18 WBC Hct MCV MCHC RDW Neutrophils # Lymphocytes # PT 28.8 H INR 3.2 H Potassium 5.6 H Carbon Dioxide BUN 31 H Creatinine 1.07 H Glucose 116 H POC Glucose (mg/dL) 151 H Hemoglobin A1c Total Bilirubin Albumin Urine Appearance Urine Protein Urine Blood Urine Bilirubin Ur Leukocyte Esterase Urine RBC Urine WBC Ur Squamous Epith Cells Urine Bacteria Hyaline Casts Urine Mucus 12/30/17 12/30/17 12/31/17 16:37 20:56 06:00 WBC Hct MCV MCHC RDW Neutrophils # Lymphocytes # PT INR Potassium Carbon Dioxide BUN Creatinine Glucose POC Glucose (mg/dL) 167 H 145 H 159 H Hemoglobin A1c Total Bilirubin Albumin Urine Appearance Urine Protein Urine Blood Urine Bilirubin Ur Leukocyte Esterase Urine RBC Urine WBC Ur Squamous Epith Cells Urine Bacteria Hyaline Casts Urine Mucus 12/31/17 12/31/17 12/31/17 06:22 06:22 06:22 WBC 11.4 H Hct 48.2 H MCV 100.5 H MCHC 29.5 L RDW 17.0 H Neutrophils # 10.1 H Lymphocytes # 0.8 L PT 98.1 H INR >10.0 H* Potassium 5.4 H Carbon Dioxide BUN 44 H Creatinine 1.25 H Glucose 153 H POC Glucose (mg/dL) Hemoglobin A1c Total Bilirubin Albumin Urine Appearance Urine Protein Urine Blood Urine Bilirubin Ur Leukocyte Esterase Urine RBC Urine WBC Ur Squamous Epith Cells Urine Bacteria Hyaline Casts Urine Mucus 12/31/17 12/31/17 12/31/17 08:55 11:28 16:28 WBC Hct MCV MCHC RDW Neutrophils # Lymphocytes # PT 98.6 H INR >10.0 H* Potassium Carbon Dioxide BUN Creatinine Glucose POC Glucose (mg/dL) 185 H 186 H Hemoglobin A1c Total Bilirubin Albumin Urine Appearance Urine Protein Urine Blood Urine Bilirubin Ur Leukocyte Esterase Urine RBC Urine WBC Ur Squamous Epith Cells Urine Bacteria Hyaline Casts Urine Mucus 12/31/17 01/01/18 01/01/18 21:00 01:39 04:30 WBC Hct MCV MCHC RDW Neutrophils # Lymphocytes # PT 58.6 H INR 6.4 H* Potassium Carbon Dioxide BUN Creatinine Glucose POC Glucose (mg/dL) 207 H Hemoglobin A1c Total Bilirubin Albumin Urine Appearance Cloudy H Urine Protein 1+ H Urine Blood Urine Bilirubin Ur Leukocyte Esterase Urine RBC Urine WBC 6 H Ur Squamous Epith Cells 33 H Urine Bacteria Rare H Hyaline Casts 17 H Urine Mucus Rare H 01/01/18 01/01/18 01/01/18 05:27 07:21 07:21 WBC 11.9 H Hct 48.2 H MCV 102.1 H MCHC 29.0 L RDW 17.4 H Neutrophils # 10.9 H Lymphocytes # 0.5 L PT 48.7 H INR 5.4 H* Potassium Carbon Dioxide BUN Creatinine Glucose POC Glucose (mg/dL) 162 H Hemoglobin A1c Total Bilirubin Albumin Urine Appearance Urine Protein Urine Blood Urine Bilirubin Ur Leukocyte Esterase Urine RBC Urine WBC Ur Squamous Epith Cells Urine Bacteria Hyaline Casts Urine Mucus 01/01/18 01/01/18 01/01/18 07:21 11:30 16:16 WBC Hct MCV MCHC RDW Neutrophils # Lymphocytes # PT INR Potassium Carbon Dioxide BUN 56 H Creatinine 1.32 H Glucose 227 H POC Glucose (mg/dL) 210 H 216 H Hemoglobin A1c Total Bilirubin Albumin Urine Appearance Urine Protein Urine Blood Urine Bilirubin Ur Leukocyte Esterase Urine RBC Urine WBC Ur Squamous Epith Cells Urine Bacteria Hyaline Casts Urine Mucus 01/01/18 20:30 WBC Hct MCV MCHC RDW Neutrophils # Lymphocytes # PT INR Potassium Carbon Dioxide BUN Creatinine Glucose POC Glucose (mg/dL) 195 H Hemoglobin A1c Total Bilirubin Albumin Urine Appearance Urine Protein Urine Blood Urine Bilirubin Ur Leukocyte Esterase Urine RBC Urine WBC Ur Squamous Epith Cells Urine Bacteria Hyaline Casts Urine Mucus Assessment and Plan (1) History of stroke with residual deficit Current Visit: Yes Status: Chronic SNOMED Code(s): 429598476 (2) Altered mental status Current Visit: Yes Status: Acute SNOMED Code(s): 583890869 Plan: The patient is a 67-year-old woman who was admitted to the hospital with COPD exacerbation. She has multiple medical conditions including chronic right hemiplegia and aphasia from old stroke. She also has atrial fibrillation hypertension and heart disease hyperlipidemia renal disease cellulitis . Apparently the patient had episode of increased lethargy today. ALLERGIES requested to see the patient. Currently she is quite alert. She does follow commands appropriately. Recommend continue current management. We'll check EEG. She had a CT of the brain today which showed old stroke without new findings.
[2018-01-01] MEDS: INSULIN DETEMIR 100 UNIT/ML 10 ML VIAL SQ SCH (21:18)
[2018-01-01] MEDS: METOPROLOL TARTRATE 25 MG TAB PO SCH (21:19)
[2018-01-02 06:25] LABS: Glucose,Whole Blood 111 mg/dL (75-99)
[2018-01-02] MEDS: INSULIN ASPART 100 UNIT/ML 1 ML 10 ML VIAL SQ SCH ×4 (06:33→21:09)
[2018-01-02] MEDS: PANTOPRAZOLE 40 MG TABLET PO SCH (06:34)
[2018-01-02] MEDS: LEVOTHYROXINE 25 MCG TAB PO SCH (06:34)
[2018-01-02 07:03] LABS: Anisocytosis Slight; Basophils % (A) 0 %; Eosinophils # (A) 0.1 k/uL (0-0.7); Eosinophils % (A) 0 %; HCT 47.8 % (34.0-46.0); HGB 13.9 gm/dL (11.4-16.0); Hypochromasia Marked; Lymphocytes # (A) 0.4 k/uL (1.0-4.8); Lymphocytes % (A) 3 %; MCH 29.6 pg (25.0-35.0); MCHC 29.1 g/dL (31.0-37.0); MCV 101.8 fL (80.0-100.0); Macrocytosis Moderate; Mean Platelet Volume 7.2; Monocytes # (A) 0.7 k/uL (0-1.0); Monocytes % (A) 6 %; Neutrophils % (A) 90 %; Platelet Count 242 k/uL (150-450); RDW 17.3 % (11.5-15.5); WBC 12.3 k/uL (3.8-10.6)
[2018-01-02 07:06] LABS: INR 2.4 (<1.2); Prothrombin Time 21.2 sec (9.0-12.0)
[2018-01-02 07:11] LABS: Calcium 9.7 mg/dL (8.4-10.2); Potassium 4.8 mmol/L (3.5-5.1)
[2018-01-02] MEDS: FORMOTEROL FUMARATE 20 MCG/2 ML NEBU INHALATION SCH ×2 (09:26→19:21)
[2018-01-02] MEDS: IPRATROPIUM-ALBUTEROL 3 ML NEB INHALATION SCH ×4 (09:26→19:21)
[2018-01-02] MEDS: BUDESONIDE 1 MG/2 ML NEBU INHALATION SCH ×2 (09:26→19:21)
[2018-01-02] MEDS: METOPROLOL TARTRATE 50 MG TAB PO SCH (09:29)
[2018-01-02] MEDS: CEFEPIME 2 GM in SODIUM CHLORIDE 0.9% 50 ML IVPB SCH ×2 (09:29→19:59)
[2018-01-02] MEDS: SILVER sulfADIAZINE Cream 400 GM 1 APPLIC APPLIC TOPICAL SCH ×2 (09:30→20:03)
--- NOTE | 2018-01-02 09:53 | ECHOF ---
Referral Reason:lv fx,chf MEASUREMENTS -------- HEIGHT: 157.5 cm WEIGHT: 109.8 kg BP: 110/60 RVIDd: 4.2 cm (< 3.3) IVSd: 1.3 cm (0.6 - 1.1) LVIDd: 5.0 cm (3.9 - 5.3) LVPWd: 1.3 cm (0.6 - 1.1) IVSs: 1.6 cm LVIDs: 3.8 cm LVPWs: 1.4 cm LA Diam: 4.7 cm (2.7 - 3.8) Ao Diam: 2.8 cm (2.0 - 3.7) AV Cusp: 1.6 cm (1.5 - 2.6) LA Diam: 4.5 cm (2.7 - 3.8) MV EXCURSION: 15.965 mm (> 18.000) MV EF SLOPE: 38 mm/s (70 - 150) EPSS: 1.0 cm MV E Wei: 1.62 m/s MV DecT: 273 ms MV A Wei: 1.49 m/s MV E/A Ratio: 1.09 RAP: 20.00 mmHg RVSP: 52.58 mmHg FINDINGS -------- Sinus rhythm. This was a techncally difficult study with suboptimal views, , Lumason utilized for enhancement of im ages. The left ventricular size is normal. There is mild concentric left ventricular hypertrophy. Overa ll left ventricular systolic function is mildly impaired with, an EF between 45 - 50 %. The right ventricle is severely enlarged. The right ventricular systolic function is severely impai red. The right ventricular septal wall is flattened in diastole and systole which is consistent wi th right ventricular volume and pressure overload. The left atrium is markedly dilated. The right atrial size is normal. 5.0mg OF Lumason UTLIZED: 2 OR MORE WALL SEGMENTS NOT VISUALIZED. The aortic valve is trileaflet, and appears structurally normal. No aortic stenosis or regurgitation. The mitral valve leaflets are moderately thickened. Moderate mitral annular calcification present. Mild mitral regurgitation is present. The peak and mean MV gradients are 16.54mmHg 6.35mmHg as m easured by doppler. Moderate mitral stenosis. Mild thickening of the anterior mitral valve leafle t. There is mild thickening of the posterior mitral valve leaflet.possible rheumatic mitral valve. Moderate to severe tricuspid regurgitation present. There is moderate to severe pulmonary hypertens ion. The right ventricular systolic pressure, as measured by Doppler, is 52.58mmHg. Trace/mild (physiologic) pulmonic regurgitation. The aortic root size is normal. The inferior vena cava is dilated with no significant inspiratory collapse which is consistent estima raymond right atrial pressure of >20 mmHg. Echo free space represents a pericardial fat pad. CONCLUSIONS -------- 1. This was a techncally difficult study with suboptimal views, , Lumason utilized for enhancement of images. 2. The left ventricular size is normal. 3. There is mild concentric left ventricular hypertrophy. 4. The right ventricular systolic function is severely impaired. 5. The right ventricular septal wall is flattened in diastole and systole which is consistent with r ight ventricular volume and pressure overload. 6. The left atrium is markedly dilated. 7. The right atrial size is normal. 8. 5.0mg OF Lumason UTLIZED: 2 OR MORE WALL SEGMENTS NOT VISUALIZED. 9. The aortic valve is trileaflet, and appears structurally normal. No aortic stenosis or regurgitati on. 10. Mild mitral regurgitation is present. 11. The peak and mean MV gradients are 16.54mmHg 6.35mmHg as measured by doppler. 12. Moderate mitral stenosis. 13. Mild thickening of the anterior mitral valve leaflet. 14. There is mild thickening of the posterior mitral valve leaflet. 15. Moderate to severe tricuspid regurgitation present. 16. There is moderate to severe pulmonary hypertension. 17. The right ventricular systolic pressure, as measured by Doppler, is 52.58mmHg. 18. Trace/mild (physiologic) pulmonic regurgitation. 19. The aortic root size is normal. 20. The inferior vena cava is dilated with no significant inspiratory collapse which is consistent es timated right atrial pressure of >20 mmHg. 21. Echo free space represents a pericardial fat pad. RESAW FEEDER: Mag Celeste RDCS
--- NOTE | 2018-01-02 11:04 | P.PN ---
Subjective Progress Note Date: 01/02/18 57-year-old female patient is known to me from previous admissions. The patient came in to the [facility] about yesterday because of worsening shortness of breath. The patient apparently got worse over the past few days. The patient has history of CVA and she has expressive aphasia. Heart with a care with the patient. According to the the patient was getting progressively more weak and more short of breath. She was in the hospital and on very much aware of this patient. She was being treated for a right lower extremity cellulitis and she was complaining course of Keflex on outpatient basis. No significant leukocytosis. Function is stable for now. INR is therapeutic. Urine analysis was abnormal and it showed white cells raising the suspicion for an infection knowing that there was some few bacteria is and this is to be further followed up by a urine culture. She is afebrile. She is hemodynamically stable. The chest x-ray shows cardiomegaly. As far as her history, this woman has COPD and she has been treated in the past for CHF and chronic atrial fibrillation. She has had a previous left sided CVA with extensive aphasia and right-sided weakness and she was the hospital recently for Alice distress and respiratory failure attributed to COPD exacerbation. She continues to smoke cigarettes. Her echocardiogram from 05/01 showed ejection fraction 45-50% consistent with mild impairment that she has a PA pressure of 48. She has had previous urinary tract infections. Her most recent blood culture was positive for enterococcus patient probably due to a soft tissue infection/right lower extremity cellulitis for which the patient was completing outpatient course of Kefzol. On 12/31/2017, the patient is doing well. No significant shortness of breath. The sunrise of the right lower extremity is improving as the patient is currently on IV antibiotics. The patient is on IV. Meanwhile I noted that the patient's PT/INR is supratherapeutic with an INR level of above 10 and we give this patient 2.5 mg of oral vitamin K. The patient is not having any signs of bleeding. She is also on Cardizem drip at 5 g an hour and the rate is controlled in terms of her atrial fibrillation. He is on metoprolol 50 mg the morning and 20 5 in the evening and digoxin 0.25 mg for rate. She is also on IV Lasix and she started to become prerenal. I'm going to stop her IV Lasix for now knowing that the creatinine is on the rise compared to her baseline. She has been negative fluid balance and she is improved. Coumadin is on hold. The patient is seen again today or 2017 in follow-up on the selective care unit. She is currently resting comfortably in bed. No acute respiratory distress. Maintaining O2 saturations in the 90s on room air. Wound culture positive for Klebsiella pneumoniae and Klebsiella oxytoca, urine cultures positive for Klebsiella pneumoniae and enterococcus faecium. White count 11.9. Hemoglobin 14.0. INR 5.4. Creatinine 1.32. on 01/02/2018, the patient is resting comfortably on a chair. Her INR is normalized knowing that she was susupratherapeutic and the patient was given vitamin K which brought down her INR down to 2.4. No signs of any bleeding. She is being treated for a right lower extremity cellulitis and she is still on IV antibiotics IV cefepime.she is on bronchodilators. She is on a combination of DuoNeb nebulized treatments around the clock and Pulmicort Respules. She is also on insulin for blood sugar control. She has no specific complaints. She has made a commitment to quit smoking.far as her labs, her INR is at 2.4. Renal function stable at creatinine of 1.2.the white cell count is at 12.3 and stable. Objective - Vital Signs Vital signs: Vital Signs Temp 98.3 F 01/02/18 08:00 Pulse 88 01/02/18 08:00 Resp 18 01/02/18 08:00 BP 129/75 01/02/18 08:00 Pulse Ox 94 L 01/02/18 08:00 Intake & Output 01/01/18 01/02/18 01/02/18 18:59 06:59 18:59 Intake Total 600 Balance 600 Weight 110 kg Intake: Oral 600 Other: Voiding Method Bedpan Bedpan Bedpan Diaper Diaper Diaper Incontinent Incontinent Incontinent # Voids 1 1 - Exam Gen. appearance the patient is not in respiratory distress even at rest. The patient has some facial asymmetry related to previous CVA. She is not using accessory muscles of breathing. Head exam was generally normal. There was no scleral icterus or corneal arcus. Mucous membranes were moist. Neck was supple and without jugular venous distension, thyromegaly, or carotid bruits. Carotids were easily palpable bilaterally. There was no adenopathy. Lungs sounds are diminished bilaterally. There is some bibasilar crackles. Scattered expiratory wheezes heard throughout the lung moraes bilaterally especially upon forceful respiratory maneuvers. Heart sounds are irregular, positive S1-S2 and there is a faint systolic ejection murmur grade 2/6 heard throughout the precordium. Abdominal exam revealed normal bowel sounds. The abdomen was soft, non-tender, and without masses, organomegaly, or appreciable enlargement of the abdominal aorta. Examination of the extremities revealed easily palpable radial, femoral and pedal pulses. There was no cyanosis, clubbing and the patient has +1-2 pitting edema in lower extremities bilaterally. There is also an ongoing cellulitis of the right lower extremity which is improved compared to previous evaluations. Neurologically the patient is awake. The patient is aphasic. She has chronic hemiplegia on the right side with right-sided spasticity and weakness. Facial asymmetry is present. There is expressive aphasia. - Labs CBC & Chem 7: 01/02/18 06:31 01/02/18 06:31 Labs: Abnormal Lab Results - Last 24 Hours (Table) 01/01/18 01/01/18 01/01/18 Range/Units 11:30 16:16 20:30 WBC (3.8-10.6) k/uL Hct (34.0-46.0) % MCV (80.0-100.0) fL MCHC (31.0-37.0) g/dL RDW (11.5-15.5) % Neutrophils # (1.3-7.7) k/uL Lymphocytes # (1.0-4.8) k/uL PT (9.0-12.0) sec INR (<1.2) BUN (7-17) mg/dL Creatinine (0.52-1.04) mg/dL Glucose (74-99) mg/dL POC Glucose (mg/dL) 210 H 216 H 195 H (75-99) mg/dL 01/02/18 01/02/18 01/02/18 Range/Units 06:24 06:31 06:31 WBC 12.3 H (3.8-10.6) k/uL Hct 47.8 H (34.0-46.0) % MCV 101.8 H (80.0-100.0) fL MCHC 29.1 L (31.0-37.0) g/dL RDW 17.3 H (11.5-15.5) % Neutrophils # 11.0 H (1.3-7.7) k/uL Lymphocytes # 0.4 L (1.0-4.8) k/uL PT 21.2 H (9.0-12.0) sec INR 2.4 H (<1.2) BUN (7-17) mg/dL Creatinine (0.52-1.04) mg/dL Glucose (74-99) mg/dL POC Glucose (mg/dL) 111 H (75-99) mg/dL 01/02/18 Range/Units 06:31 WBC (3.8-10.6) k/uL Hct (34.0-46.0) % MCV (80.0-100.0) fL MCHC (31.0-37.0) g/dL RDW (11.5-15.5) % Neutrophils # (1.3-7.7) k/uL Lymphocytes # (1.0-4.8) k/uL PT (9.0-12.0) sec INR (<1.2) BUN 59 H (7-17) mg/dL Creatinine 1.22 H (0.52-1.04) mg/dL Glucose 123 H (74-99) mg/dL POC Glucose (mg/dL) (75-99) mg/dL Microbiology - Last 24 Hours (Table) 12/29/17 12:00 Blood Culture - Preliminary Blood No Growth after 72 hours 01/01/18 04:30 Urine Culture - Preliminary Urine,Voided 12/29/17 21:21 Gram Stain - Final Leg - Right Wound Culture - Final Klebsiella pneumoniae Klebsiella oxytoca Assessment and Plan Plan: Assessment 1 shortness of breath, multifactorial. The patient has advanced COPD and the patient has also component of CHF clinically improved and the patient is not having any major respiratory distress at this point in time. 2 lower extremity cellulitis, wound positive for Klebsiella pneumoniae and Klebsiella oxytoca, still on IV cefepime with improving cellulitis 3 urinary tract infection secondary to Klebsiella pneumoniae and enterococcus faecium 4 chronic atrial fibrillation, on long-term anticoagulation with warfarin the patient's PT/INR is supra therapeutic currently 5.4 5 COPD 6 CVA with right-sided hemiplegia and extensive aphasia and the patient is essentially bedridden 7 hypertension 8 hyperlipidemia 9 smoker 10 expressive aphasia secondary to previous CVA 11 chronic atrial fibrillation Rate is controlled and the patient isn't a cardiac-related warfarin with an INR of 2.4 12 prerenal azotemia related to Lasix.the diuretics is currently on hold plan the patient doing extremely well. No active pulmonary issues. Continue IV cefepime and long-term antibiotic choice will be decided by infectious disease. Continue bronchodilators. May resume anticoagulation at a lower dose and will limit antipronation business to medicine.smoking cessation counseling was done. Continue bronchodilators and the patient is demented on a combination of Spiriva and DuoNeb nebulized treatments around the clock on outpatient basis. This will be resumed at a time of discharge.
[2018-01-02 12:02] LABS: Glucose,Whole Blood 159 mg/dL (75-99)
--- NOTE | 2018-01-02 14:40 | P.PN ---
Subjective Progress Note Date: 01/02/18 This is a 67-year-old female patient with past medical history significant for chronic atrial fibrillation, on oral anticoagulation with Coumadin, history of CVA causing a persistent right-sided flaccidity as well as slurring of speech and expressive aphasia, history of COPD on home O2, hypertension, hyperlipidemia, GERD, anemia, who was just recently discharged from the hospital, return to the hospital with symptoms of shortness of breath. Patient did have a recent hospitalization with COPD exacerbation and bilateral lower extremity cellulitis. Chest x-ray this admission did not reveal any acute cardiopulmonary process. Venous duplex study of the left lower extremity was performed which was negative for DVT. Venous duplex study of the right upper extremity was also performed which was negative for DVT. EKG on admission shows atrial fibrillation with controlled ventricular response. CAT scan of the brain shows old left parietal cortical infarct. The sooner old infarct right posterior frontal lobe. No acute abnormality. Blood pressure on arrival 100/70 with a heart rate of 118, temperature 97.0 she was 96 % on room air. I pressure this morning 110/60 with a heart rate of 90. Laboratory data was reviewed, INR this morning is up to 6.4, white blood cell count 11.9, hemoglobin 14, platelet count 279. Sodium 138, potassium 4.7, BUN 56, creatinine 1.3, BUN on admission was 24 and creatinine 0.9. She is currently on a Cardizem drip. At the time of my examination this morning, patient states her breathing is significantly improved, she is quite eager to be discharged home today. Alert and oriented. 01/02/2018 Patient seen and examined this morning, overall she looks well. No cardiac issues. Hemodynamically she is stable. Objective - Vital Signs Vital signs: Vital Signs Temp 98.1 F 01/02/18 12:00 Pulse 72 01/02/18 12:00 Resp 18 01/02/18 12:00 BP 107/79 01/02/18 12:00 Pulse Ox 95 01/02/18 12:00 Intake & Output 01/01/18 01/02/18 01/02/18 18:59 06:59 18:59 Intake Total 600 300 Balance 600 300 Weight 110 kg Intake: Oral 600 300 Other: Voiding Method Bedpan Bedpan Bedpan Diaper Diaper Diaper Incontinent Incontinent Incontinent # Voids 1 1 400 - Exam Gen. appearance the patient is not in respiratory distress even at rest. The patient has some facial asymmetry related to previous CVA. She is not using accessory muscles of breathing. Head exam was generally normal. There was no scleral icterus or corneal arcus. Mucous membranes were moist. Neck was supple and without jugular venous distension, thyromegaly, or carotid bruits. Carotids were easily palpable bilaterally. There was no adenopathy. Lungs sounds are diminished bilaterally. There is some bibasilar crackles. Scattered expiratory wheezes heard throughout the lung moraes bilaterally especially upon forceful respiratory maneuvers. Heart sounds are irregular, positive S1-S2 and there is a faint systolic ejection murmur grade 2/6 heard throughout the precordium. Abdominal exam revealed normal bowel sounds. The abdomen was soft, non-tender, and without masses, organomegaly, or appreciable enlargement of the abdominal aorta. Examination of the extremities revealed easily palpable radial, femoral and pedal pulses. There was no cyanosis, clubbing and the patient has +1-2 pitting edema in lower extremities bilaterally. There is also an ongoing cellulitis of the right lower extremity which is improved compared to previous evaluations. Neurologically the patient is awake. The patient is aphasic. She has chronic hemiplegia on the right side with right-sided spasticity and weakness. Facial asymmetry is present. There is expressive aphasia. - Labs CBC & Chem 7: 01/02/18 06:31 01/02/18 06:31 Labs: Abnormal Lab Results - Last 24 Hours (Table) 01/01/18 01/01/18 01/02/18 Range/Units 16:16 20:30 06:24 WBC (3.8-10.6) k/uL Hct (34.0-46.0) % MCV (80.0-100.0) fL MCHC (31.0-37.0) g/dL RDW (11.5-15.5) % Neutrophils # (1.3-7.7) k/uL Lymphocytes # (1.0-4.8) k/uL PT (9.0-12.0) sec INR (<1.2) BUN (7-17) mg/dL Creatinine (0.52-1.04) mg/dL Glucose (74-99) mg/dL POC Glucose (mg/dL) 216 H 195 H 111 H (75-99) mg/dL 09/12/18 09/12/18 09/12/18 Range/Units 06:31 06:31 06:31 WBC 12.3 H (3.8-10.6) k/uL Hct 47.8 H (34.0-46.0) % MCV 101.8 H (80.0-100.0) fL MCHC 29.1 L (31.0-37.0) g/dL RDW 17.3 H (11.5-15.5) % Neutrophils # 11.0 H (1.3-7.7) k/uL Lymphocytes # 0.4 L (1.0-4.8) k/uL PT 21.2 H (9.0-12.0) sec INR 2.4 H (<1.2) BUN 59 H (7-17) mg/dL Creatinine 1.22 H (0.52-1.04) mg/dL Glucose 123 H (74-99) mg/dL POC Glucose (mg/dL) (75-99) mg/dL 01/02/18 Range/Units 11:57 WBC (3.8-10.6) k/uL Hct (34.0-46.0) % MCV (80.0-100.0) fL MCHC (31.0-37.0) g/dL RDW (11.5-15.5) % Neutrophils # (1.3-7.7) k/uL Lymphocytes # (1.0-4.8) k/uL PT (9.0-12.0) sec INR (<1.2) BUN (7-17) mg/dL Creatinine (0.52-1.04) mg/dL Glucose (74-99) mg/dL POC Glucose (mg/dL) 159 H (75-99) mg/dL Microbiology - Last 24 Hours (Table) 12/29/17 12:00 Blood Culture - Preliminary Blood No Growth after 72 hours 01/01/18 04:30 Urine Culture - Preliminary Urine,Voided Assessment and Plan Plan: Assessment and plan #1 symptoms of shortness of breath, likely secondary to patient's advanced COPD , no evidence of congestive cardiac failure. #2 bilateral lower extremity cellulitis, improving, patient has bilateral Heraclio wraps in place. #3 chronic persistent atrial fibrillation, on Coumadin for anticoagulation, supratherapeutic this morning #4 COPD #5 CVA with right-sided hemiplegia and extensive the fascia #6 hypertension #7 hyperlipidemia #8 nicotine dependence #9 mitral stenosis and tricuspid regurg Plan From cardiology's perspective, we'll continue current medication. Follow up on an as-needed basis only, please of hesitate to call with any questions. DNP note has been reviewed, I agree with a documented findings and plan of care. Patient was seen and examined.
--- NOTE | 2018-01-02 17:49 | PN ---
PROGRESS NOTE DATE OF SERVICE: 01/02/2018 REASON FOR FOLLOWUP: 1. Bilateral lower extremity cellulitis and wounds. 2. UTI. INTERVAL HISTORY: The patient is afebrile. She seems to be breathing comfortably. Denies significant chest pain or any cough or abdominal pain. No pain to the leg area. PHYSICAL EXAMINATION: Blood pressure is 107/79 with a pulse of 72, temperature 98.1. She is 95% on room air. General description is an elderly female up in the bed in no distress. RESPIRATORY SYSTEM: Unlabored breathing. Clear to auscultation anteriorly. HEART: S1, S2. Regular rate and rhythm. ABDOMEN: Soft. No tenderness. LEGS: Currently wrapped up. No obvious drainage on the dressing. LABS: Hemoglobin is 13.9, white count 12.3, BUN of 59 and creatinine 1.22. DIAGNOSTIC IMPRESSION AND PLAN: Patient with bilateral lower extremity cellulitis in a patient who did have a culture obtained from the leg wound which is showing a klebsiella sensitive pathogen in addition to the urinary tract infection. Patient is currently on cefepime. Will be able to finish therapy with oral antibiotics. Continue with supportive care. MMODL / IJN: [id number] /
[2018-01-02 18:12] LABS: Glucose,Whole Blood 150 mg/dL (75-99)
--- NOTE | 2018-01-02 19:09 | P.PN ---
Subjective Progress Note Date: 01/02/18 Progress note being dictated for Dr. Young Interval history: This a 67-year-old female admitted with acute COPD exacerbation, acute CHF exacerbation, cellulitis, enterococcus sepsis and multiple other medical issues. Maintained on IV antibiotics. Afebrile. INR greater than 10, no signs or symptoms of bleeding, vitamin K ordered. Last night Atrial fibrillation with RVR, Cardizem drip initiated, currently controlled. Maintained on Lasix IV push, renal function worsening, creatinine 1.25. Potassium 5.4. Afebrile. 01/01/2018 yesterday afternoon, IVs changed to Unasyn .During the night, staff reported flushed face, increased lethargy accompanied by increased swelling/ redness of the right arm. Doppler reported no DVT of right arm. Head CT reported no acute intracranial abnormality. Wound cultures positive for Klebsiella pneumoniae and Klebsiella oxytoca, urine cultures positive for Klebsiella pneumoniae and enterococcus faecium. Antibiotics further adjusted as per infectious disease. Afebrile. Creatinine 1.32. Potassium improved, 4.7. Received oral vitamin K for INR greater than 10 yesterday, INR currently down to 5.4. Received another dose of vitamin K. Telemetry atrial fibrillation with controlled ventricular rate. Review of systems: CONSTITUTIONAL: No fever, no chills, no fatigue. HEENT: No recent visual problems or hearing problems. Denied any sore throat. CARDIOVASCULAR: No chest pain, no palpitations, no syncope. PULMONARY: No shortness of breath, no cough, no hemoptysis. GASTROINTESTINAL: No diarrhea, no nausea, no vomiting, no abdominal pain. Normoactive bowel sounds. NEUROLOGICAL: No headaches, generalized weakness, Chronic right-sided hemiaplasia with facial asymmetry. HEMATOLOGICAL: Denies any bleeding or petechiae. GENITOURINARY: Denies any burning micturition, frequency, or urgency. ENDOCRINE: Denies any polyuria or polydipsia. PSYCHIATRIC: No anxiety, no depression The rest of the 14 point review of systems is negative Active Medications Acetaminophen (Tylenol Tab) 650 mg PO Q6HR PRN PRN Reason: Mild Pain or Fever > 100.5 Hydrocodone Bitart/Acetaminophen ([place] 5-325) 1 each PO Q6HR PRN PRN Reason: MODERATE Pain Albuterol/Ipratropium (Duoneb 0.5 Mg-3 Mg/3 Ml Soln) 3 ml INHALATION RT-Q4H PRN PRN Reason: Shortness Of Breath Or Wheezing Albuterol/Ipratropium (Duoneb 0.5 Mg-3 Mg/3 Ml Soln) 3 ml INHALATION RT-QID [facility] Last Admin: 01/01/18 16:33 Dose: Not Given Alprazolam (Xanax) 0.25 mg PO TID PRN PRN Reason: Anxiety Budesonide (Pulmicort) 1 mg INHALATION RT-BID [facility] Last Admin: 01/01/18 08:32 Dose: 1 mg Formoterol Fumarate (Perforomist) 20 mcg INHALATION RT-BID [facility] Last Admin: 01/01/18 08:32 Dose: 20 mcg Cefepime HCl 2 gm/ Sodium (Chloride) 50 mls @ 100 mls/hr IVPB Q24HR [facility] Last Admin: 01/01/18 09:23 Dose: 100 mls/hr Insulin Aspart (Novolog) 0 unit SQ ACHS [facility]; Protocol Last Admin: 01/01/18 12:44 Dose: 3 unit Levothyroxine Sodium (Synthroid) 25 mcg PO DAILY@0600 [facility] Last Admin: 01/01/18 06:14 Dose: 25 mcg Metformin HCl (Glucophage) 500 mg PO DAILY [facility] Last Admin: 01/01/18 09:24 Dose: 500 mg Metoprolol Tartrate (Lopressor) 50 mg PO DAILY [facility] Last Admin: 01/01/18 09:25 Dose: 50 mg Metoprolol Tartrate (Lopressor) 25 mg PO HS [facility] Last Admin: 12/31/17 22:30 Dose: 25 mg Morphine Sulfate (Morphine Sulfate (Inj)) 2 mg IVP Q4H PRN PRN Reason: Pain/Discomfort Pantoprazole Sodium (Protonix) 40 mg PO AC-BRKFST [facility] Last Admin: 01/01/18 06:15 Dose: 40 mg Silver Sulfadiazine (Silvadene Cream) 1 applic TOPICAL BID [facility] Last Admin: 01/01/18 09:26 Dose: Not Given Spironolactone (Aldactone) 12.5 mg PO DAILY [facility] Last Admin: 01/01/18 09:25 Dose: 12.5 mg Temazepam (Restoril) 15 mg PO HS PRN PRN Reason: Insomnia Warfarin Sodium (Coumadin) 7.5 mg PO Q48H [facility] Last Admin: 12/29/17 21:31 Dose: 7.5 mg Warfarin Sodium (Coumadin) 5 mg PO Q48H [facility] Last Admin: 12/30/17 17:18 Dose: 5 mg 01/02/2018 returned from EEG, results pending. Telemetry atrial fibrillation controlled ventricular rate, heart rates in the 90s. Echo suboptimal, reporting EF between 45 and 50%, moderate mitral stenosis, moderate to severe tricuspid regurgitation, moderate to severe pulmonary hypertension.INR 2.4. Afebrile. Denies chest pain, abdominal pain or leg pain currently. UTI and wound cultures reporting Klebsiella. Maintain on cefepime. Repeat urine culture pending. Objective - Vital Signs Vital signs: Vital Signs Temp 98.8 F 01/02/18 16:00 Pulse 77 01/02/18 16:00 Resp 18 01/02/18 16:00 BP 113/77 01/02/18 16:00 Pulse Ox 93 L 01/02/18 16:00 Intake & Output 01/01/18 01/02/18 01/02/18 18:59 06:59 18:59 Intake Total 600 300 Balance 600 300 Weight 110 kg Intake: Oral 600 300 Other: Voiding Method Bedpan Bedpan Bedpan Diaper Diaper Diaper Incontinent Incontinent Incontinent # Voids 1 1 400 - Exam PHYSICAL EXAM: VITAL SIGNS: As above GENERAL: Sitting up in bed, no acute distress. Expressive aphasia HEENT: Conjunctivae normal. eyes normal. Oral mucosa moist NECK: No JVD. No thyroid enlargement. No LNs CARDIOVASCULAR: S1, S2 muffled. Irregular, tachycardic, Systolic murmur RESPIRATION: Breath sounds diminished in the bases. No rhonchi, fine bibasilar crackles. Occasional scattered expiratory wheezing. ABDOMEN: Soft, nontender . No guarding. no masses palpable. No ascites, No hepatosplenomegaly.Bowel sounds heard. LEGS: Positive edema bilateral lower extremities. No cyanosis, no clubbing, Positive pedal pulses. Bilateral Heraclio wraps clean dry and intact PSYCHIATRY: Alert and oriented -3, mood and affect normal. NERVOUS SYSTEM: Chronic right-sided hemiaplasia with facial asymmetry. Skin: Right lower extremity cellulitis improving. Lymphatic system. No LN neck axilla or groin. Microbiology 12/29/17 12:00 Blood Blood Culture - Preliminary No Growth after 72 hours 01/01/18 04:30 Urine,Voided Urine Culture - Preliminary 12/29/17 21:21 Leg - Right Gram Stain - Final 12/29/17 21:21 Leg - Right Wound Culture - Final Klebsiella pneumoniae Klebsiella oxytoca 12/29/17 18:45 Urine,Voided Urine Culture - Final Klebsiella pneumoniae Enterococcus faecium - Labs CBC & Chem 7: 01/02/18 06:31 01/02/18 06:31 Labs: Abnormal Lab Results - Last 24 Hours (Table) 01/01/18 01/02/18 01/02/18 Range/Units 20:30 06:24 06:31 WBC 12.3 H (3.8-10.6) k/uL Hct 47.8 H (34.0-46.0) % MCV 101.8 H (80.0-100.0) fL MCHC 29.1 L (31.0-37.0) g/dL RDW 17.3 H (11.5-15.5) % Neutrophils # 11.0 H (1.3-7.7) k/uL Lymphocytes # 0.4 L (1.0-4.8) k/uL PT (9.0-12.0) sec INR (<1.2) BUN (7-17) mg/dL Creatinine (0.52-1.04) mg/dL Glucose (74-99) mg/dL POC Glucose (mg/dL) 195 H 111 H (75-99) mg/dL 01/02/18 01/02/18 01/02/18 Range/Units 06:31 06:31 11:57 WBC (3.8-10.6) k/uL Hct (34.0-46.0) % MCV (80.0-100.0) fL MCHC (31.0-37.0) g/dL RDW (11.5-15.5) % Neutrophils # (1.3-7.7) k/uL Lymphocytes # (1.0-4.8) k/uL PT 21.2 H (9.0-12.0) sec INR 2.4 H (<1.2) BUN 59 H (7-17) mg/dL Creatinine 1.22 H (0.52-1.04) mg/dL Glucose 123 H (74-99) mg/dL POC Glucose (mg/dL) 159 H (75-99) mg/dL 01/02/18 Range/Units 17:53 WBC (3.8-10.6) k/uL Hct (34.0-46.0) % MCV (80.0-100.0) fL MCHC (31.0-37.0) g/dL RDW (11.5-15.5) % Neutrophils # (1.3-7.7) k/uL Lymphocytes # (1.0-4.8) k/uL PT (9.0-12.0) sec INR (<1.2) BUN (7-17) mg/dL Creatinine (0.52-1.04) mg/dL Glucose (74-99) mg/dL POC Glucose (mg/dL) 150 H (75-99) mg/dL Microbiology - Last 24 Hours (Table) 12/29/17 12:00 Blood Culture - Preliminary Blood No Growth after 72 hours Assessment and Plan Assessment: -shortness of breath, multifactorial; secondary to advanced COPD, acute CHF exacerbation, systolic dysfunction,EF 45-50%, aortic stenosis and severe pulmonary hypertension -Klebsiella ,lower extremity cellulitis with possible sepsis -Chronic Atrial fibrillation: With rapid ventricular rate , status post Cardizem drip -Coumadin coagulopathy -Possible acute metabolic encephalopathy related to infection and possible sepsis -COPD without any significant exacerbation -Hyperlipidemia -Hypertension -Coronary artery disease -CVA with right-sided hemiplegia and extensive aphasia - Ongoing nicotine abuse -Acute urine tract infection with Klebsiella, repeat culture pending -prerenal azotemia related to Lasix. -Hyperkalemia -moderate mitral stenosis - moderate to severe tricuspid regurgitation -moderate to severe pulmonary hypertension Plan: Continue current medication regime ,monitoring and symptomatic treatment. Maintain antibiotics/Wound Care. Coumadin resumed at a lower dose. Close monitoring of PT/INR, renal function. Final repeat urine culture pending. Discharge planning in progress for tomorrow. The impression and plan of care has been dictated as directed. : I performed a history and examination of this patient, discussed the same with the dictator. I agree with the dictator's note ,documented as a scribe. Any additional findings or plans will be noted.
[2018-01-02] MEDS ORDERED: WARFARIN 2.5 MG TAB PO ONE (19:15)
[2018-01-02] MEDS: METOPROLOL TARTRATE 25 MG TAB PO SCH (20:03)
[2018-01-02 20:42] LABS: Glucose,Whole Blood 202 mg/dL (75-99)
[2018-01-02] MEDS: INSULIN DETEMIR 100 UNIT/ML 10 ML VIAL SQ SCH (21:09)
--- NOTE | 2018-01-03 05:28 | EEG ---
ELECTROENCEPHALOGRAM REPORT DATE OF EE01/02/2018 ELECTROENCEPHALOGRAPHIC EXAMINATION REPORT: INDICATION FOR EXAMINATION: This patient is a 67-year-old female being evaluated for COPD exacerbation and mild confusion. The patient has history of stroke with right-sided hemiplegia. AGE: [age]. EEG FINDINGS: A routine 21 channel awake digital EEG recording was accomplished utilizing the 10-20 international system with bipolar and referential montages. The background activity in the most alert resting state consists of a low to medium amplitude, poorly developed and poorly sustained 5-6 Hz activity over the posterior head regions. This posterior rhythm attenuates to eye opening. There is a small amount of low amplitude 18-20 Hz beta activity seen maximally over the anterior head regions. Muscle and movement artifact was observed on a few occasions during the tracing. Hyperventilation was not performed. Photic stimulation at flash frequencies of 2-30 Hz produced a minimal occipital driving response. No epileptiform discharges were seen. IMPRESSION: This EEG is moderately abnormal in a diffuse fashion due to slowing of the EEG background. The EEG failed to reveal any focal, lateralized, or epileptiform abnormalities. If clinically indicated a follow-up EEG is recommended. Clinical correlation is recommended. MMODL / IJN: [id number] /
[2018-01-03] MEDS: LEVOTHYROXINE 25 MCG TAB PO SCH (06:09)
[2018-01-03] MEDS: PANTOPRAZOLE 40 MG TABLET PO SCH (06:09)
[2018-01-03 06:17] LABS: Glucose,Whole Blood 156 mg/dL (75-99)
[2018-01-03] MEDS: INSULIN ASPART 100 UNIT/ML 1 ML 10 ML VIAL SQ SCH ×2 (06:18→12:29)
[2018-01-03 07:15] LABS: INR 1.7 (<1.2)
[2018-01-03 07:16] LABS: Prothrombin Time 15.8 sec (9.0-12.0)
[2018-01-03] MEDS: BUDESONIDE 1 MG/2 ML NEBU INHALATION SCH (08:25)
[2018-01-03] MEDS: FORMOTEROL FUMARATE 20 MCG/2 ML NEBU INHALATION SCH (08:25)
[2018-01-03] MEDS: IPRATROPIUM-ALBUTEROL 3 ML NEB INHALATION SCH ×3 (08:26→16:21)
[2018-01-03] MEDS: METOPROLOL TARTRATE 50 MG TAB PO SCH (10:34)
[2018-01-03] MEDS: CEFEPIME 2 GM in SODIUM CHLORIDE 0.9% 50 ML IVPB SCH (10:35)
[2018-01-03] MEDS: SILVER sulfADIAZINE Cream 400 GM 1 APPLIC APPLIC TOPICAL SCH (10:37)
[2018-01-03 11:54] LABS: Glucose,Whole Blood 151 mg/dL (75-99)
[2018-01-03 12:41] VITALS: RESP 18
--- NOTE | 2018-01-03 13:11 | P.PN ---
Subjective Progress Note Date: 01/03/18 Principal diagnosis: Acute exacerbation of buying chronic COPD and chronic systolic congestive heart failure with ejection fraction 45-50%. 57-year-old female patient is known to me from previous admissions. The patient came in to the [facility] about yesterday because of worsening shortness of breath. The patient apparently got worse over the past few days. The patient has history of CVA and she has expressive aphasia. Heart with a care with the patient. According to the the patient was getting progressively more weak and more short of breath. She was in the hospital and on very much aware of this patient. She was being treated for a right lower extremity cellulitis and she was complaining course of Keflex on outpatient basis. No significant leukocytosis. Function is stable for now. INR is therapeutic. Urine analysis was abnormal and it showed white cells raising the suspicion for an infection knowing that there was some few bacteria is and this is to be further followed up by a urine culture. She is afebrile. She is hemodynamically stable. The chest x-ray shows cardiomegaly. As far as her history, this woman has COPD and she has been treated in the past for CHF and chronic atrial fibrillation. She has had a previous left sided CVA with extensive aphasia and right-sided weakness and she was the hospital recently for Alice distress and respiratory failure attributed to COPD exacerbation. She continues to smoke cigarettes. Her echocardiogram from 05/01 showed ejection fraction 45-50% consistent with mild impairment that she has a PA pressure of 48. She has had previous urinary tract infections. Her most recent blood culture was positive for enterococcus patient probably due to a soft tissue infection/right lower extremity cellulitis for which the patient was completing outpatient course of Kefzol. On 12/31/2017, the patient is doing well. No significant shortness of breath. The sunrise of the right lower extremity is improving as the patient is currently on IV antibiotics. The patient is on IV. Meanwhile I noted that the patient's PT/INR is supratherapeutic with an INR level of above 10 and we give this patient 2.5 mg of oral vitamin K. The patient is not having any signs of bleeding. She is also on Cardizem drip at 5 g an hour and the rate is controlled in terms of her atrial fibrillation. He is on metoprolol 50 mg the morning and 20 5 in the evening and digoxin 0.25 mg for rate. She is also on IV Lasix and she started to become prerenal. I'm going to stop her IV Lasix for now knowing that the creatinine is on the rise compared to her baseline. She has been negative fluid balance and she is improved. Coumadin is on hold. The patient is seen again today January 01 2018 in follow-up on the selective care unit. She is currently resting comfortably in bed. No acute respiratory distress. Maintaining O2 saturations in the 90s on room air. Wound culture positive for Klebsiella pneumoniae and Klebsiella oxytoca, urine cultures positive for Klebsiella pneumoniae and enterococcus faecium. White count 11.9. Hemoglobin 14.0. INR 5.4. Creatinine 1.32. on 01/02/2018, the patient is resting comfortably on a chair. Her INR is normalized knowing that she was susupratherapeutic and the patient was given vitamin K which brought down her INR down to 2.4. No signs of any bleeding. She is being treated for a right lower extremity cellulitis and she is still on IV antibiotics IV cefepime.she is on bronchodilators. She is on a combination of DuoNeb nebulized treatments around the clock and Pulmicort Respules. She is also on insulin for blood sugar control. She has no specific complaints. She has made a commitment to quit smoking.far as her labs, her INR is at 2.4. Renal function stable at creatinine of 1.2.the white cell count is at 12.3 and stable. The patient is seen again today January 03 2018 in follow-up on the selective care unit. She remains awake and alert in no acute distress. She is maintaining good O2 saturations in the 90s on 2 L/m per nasal cannula. She's afebrile. Hemodynamically stable. She is continued on cefepime. EEG revealed moderately abnormal diffuse fashion due to slowing of the EEG background. No focal, lateralizing or epileptiform abnormalities noted however. Objective - Vital Signs Vital signs: Vital Signs Temp 97.0 F L 01/03/18 12:37 Pulse 63 01/03/18 12:37 Resp 18 01/03/18 12:37 BP 117/65 01/03/18 12:37 Pulse Ox 93 L 01/03/18 08:06 Intake & Output 01/02/18 01/03/1801/03/18 18:59 06:59 18:59 Intake Total 300 50 500 Balance 300 50 500 Weight 104.5 kg Intake: Intake, IV Titration 50 100 Amount Cefepime 2 gm In Sodium 50 100 Chloride 0.9% 50 ml @ 100 mls/hr IVPB Q12H [facility] Rx# :[id number] Oral 300 400 Other: Voiding Method Bedpan Bedpan Diaper Diaper Incontinent Incontinent # Voids 400 2 - Exam Gen. appearance the patient is not in respiratory distress even at rest. The patient has some facial asymmetry related to previous CVA. She is not using accessory muscles of breathing. Head exam was generally normal. There was no scleral icterus or corneal arcus. Mucous membranes were moist. Neck was supple and without jugular venous distension, thyromegaly, or carotid bruits. Carotids were easily palpable bilaterally. There was no adenopathy. Lungs sounds are diminished bilaterally. There is some bibasilar crackles. Scattered expiratory wheezes heard throughout the lung moraes bilaterally especially upon forceful respiratory maneuvers. Heart sounds are irregular, positive S1-S2 and there is a faint systolic ejection murmur grade 2/6 heard throughout the precordium. Abdominal exam revealed normal bowel sounds. The abdomen was soft, non-tender, and without masses, organomegaly, or appreciable enlargement of the abdominal aorta. Examination of the extremities revealed easily palpable radial, femoral and pedal pulses. There was no cyanosis, clubbing and the patient has +1-2 pitting edema in lower extremities bilaterally. There is also an ongoing cellulitis of the right lower extremity which is improved compared to previous evaluations. Neurologically the patient is awake. The patient is aphasic. She has chronic hemiplegia on the right side with right-sided spasticity and weakness. Facial asymmetry is present. There is expressive aphasia. - Labs CBC & Chem 7: 01/02/18 06:31 01/02/18 06:31 Labs: Abnormal Lab Results - Last 24 Hours (Table) 01/02/18 01/02/18 01/03/18 Range/Units 17:53 20:40 06:16 PT (9.0-12.0) sec INR (<1.2) POC Glucose (mg/dL) 150 H 202 H 156 H (75-99) mg/dL 01/03/18 01/03/18 Range/Units 06:21 11:47 PT 15.8 H (9.0-12.0) sec INR 1.7 H (<1.2) POC Glucose (mg/dL) 151 H (75-99) mg/dL Microbiology - Last 24 Hours (Table) 12/29/17 12:00 Blood Culture - Preliminary Blood No Growth after 96 hours Assessment and Plan Assessment: Assessment 1 shortness of breath, multifactorial. The patient has advanced COPD and the patient has also component of CHF and a chest x-ray showing multi-chamber cardiac enlargement. It's reasonable to repeat an echocardiogram to get a follow-up on the ejection fraction and pulmonary hypertension. Clinically the patient improved and the patient is less short of breath compared to yesterday. 2 lower extremity cellulitis, wound positive for Klebsiella pneumoniae and Klebsiella oxytoca 3 urinary tract infection secondary to Klebsiella pneumoniae and enterococcus faecium 4 chronic atrial fibrillation, on long-term anticoagulation with warfarin the patient's PT/INR was supra therapeutic currently 1.7 5 COPD 6 CVA with right-sided hemiplegia and extensive aphasia and the patient is essentially bedridden 7 hypertension 8 hyperlipidemia 9 smoker 10 chronic atrial fibrillation the patient on Cardizem drip at 5 mg an hour for rate control 11 prerenal azotemia related to Lasix. Plan The patient was seen and evaluated by Dr. Troy. She is currently stable from the pulmonary standpoint. We'll continue DuoNeb inhalations, Pulmicort and Perforomist inhalations. She is on cefepime. We will continue to follow and make further recommendations based on her clinical status. I, the cosigning physician, performed a history & physical examination of the patient. Lungs sounds are clear. Maintaining good O2 saturations in the 90s on 2 L/m per nasal cannula. I discussed the assessment and plan of care with my nurse practitioner, Vicki Guerrero. I attest to the above note as dictated by her.
--- NOTE | 2018-01-03 14:41 | PN ---
PROGRESS NOTE DATE OF SERVICE: 01/03/2018. REASON FOR FOLLOW UP: 1. Urinary tract infection, Klebsiella. 2. Bilateral leg cellulitis. INTERVAL HISTORY: The patient is currently afebrile. She is breathing comfortably. Denies having any chest pain, shortness of breath or cough. No abdominal pain or any diarrhea. EXAMINATION: Blood pressure 117/55 with a pulse of 68, temperature 97. She is 92% on 2 L nasal cannula. General description is an elderly female up in the bed in no distress. Respiratory system: Unlabored breathing, clear to auscultation anteriorly. Heart S1, S2. Regular rate and rhythm. Abdomen soft, no tenderness. Legs have been wrapped up. Minimal swelling. No redness. LABS: No new labs have been obtained today. Her white count was 12.3 as of yesterday. Repeat urine culture has been negative. DIAGNOSTIC IMPRESSION AND PLAN: Patient with Klebsiella urinary tract infection also with bilateral lower extremity cellulitis and wound sensitive to ceftriaxone. The patient will be oral Ceftin 500 mg twice a day for about 5 days with careful monitoring of her INR. This was explained to the patient to the admitting team. MMODL / IJN: [id number] /
[2018-01-03 16:25] VITALS: BP 104/73; TEMP 97.1
[2018-01-03 16:33] VITALS: PULSE 76
[2018-01-03 16:44] LABS: Glucose,Whole Blood 157 mg/dL (75-99)
--- NOTE | 2018-01-03 21:50 | DS ---
DISCHARGE SUMMARY FINAL DIAGNOSIS: 1. Shortness of breath possibly multifactorial secondary to chronic obstructive pulmonary disease acute exacerbation as well as congestive heart failure acute exacerbation with acute on chronic systolic dysfunction ejection fraction 40-45 percent, aortic stenosis and severe pulmonary hypertension. 2. Klebsiella lower extremity cellulitis with possible sepsis present on admission. 3. Chronic atrial fibrillation with rapid ventricular rate. 4. Status post Cardizem drip. 5. Coumadin coagulopathy. 6. Acute metabolic encephalopathy related to infection, possible sepsis. 7. Chronic obstructive pulmonary disease without any acute exacerbation. 8. Hyperlipidemia. 9. Hypertension. 10.Coronary artery disease. 11.Cerebrovascular accident with right hemiplegia. 12.History of dysphagia. 13.Ongoing nicotine abuse. 14.Acute urinary tract infection with Klebsiella. 15.Prerenal azotemia related to Lasix. 16.Hypokalemia. 17.Moderate mitral stenosis. 18.Moderate to severe tricuspid regurgitation. 19.History of pulmonary hypertension. DISCHARGE DISPOSITION: The patient is being discharged in stable condition with guarded prognosis. Multiple consultants cleared the patient for discharge. Total time taken 35 minutes. HISTORY OF PRESENT ILLNESS: This 67-year-old woman with a past medical history of multiple medical problems admitted with features of shortness of breath and possible sepsis. Patient given antibiotics, bronchodilators and steroids. Patient improved significantly. The patient had a tumultuous course in the hospital, but however the patient got better. The possibility of ECF rehab was suggested at this time but the patient is keen on going home at this time. On exam, vital signs stable. Cardio system: S1, S2. Respiratory: Breath sounds diminished. A few rhonchi. Abdomen soft. Nervous system: No focal deficits. DISCHARGE ADVICE AND MEDICATIONS: 1. Diet is cardiac diet. 2. Activity limited until followup. 3. Follow up with Dr. Du Lancaster in 2-3 days. 4. Follow up with Dr. Troy as advised 1 week. 5. Follow with Cardiology as recommended. MEDICATIONS ARE: 1. DuoNeb q.i.d. and p.r.n. 2. Lasix 20 mg p.o. daily. 3. Synthroid 25 mcg. 4. Lopressor 50 mg p.o. daily. 5. Spiriva 1 puff daily. 6. Tylenol 650 q.6h p.r.n. 7. Symbicort 160/4.5 two puffs b.i.d. 8. Ceftin 500 mg p.o. b.i.d. for 5 days. 9. Levemir 20 units subcu q.h.s. 10.Lopressor 25 mg q.h.s. 11.Protonix 40 mg b.i.d. 12.Silver sulfadine local application. 13.Coumadin 4 mg p.o. 14.CBC, BMP, PT and INR present. 15.Pulmicort 1 mg b.i.d. Home care is also being arranged. MMODL / IJN: [id number] /
== END 2018-01-03 18:12 | disposition home health service (06) | DRG 871 ==
LOC: EC 12:07 → 6SEL 15:04 → OBSVTOIN 12-30 12:00
PROVIDERS: ADMIT Family Medicine; ATTEND Family Medicine
DX: A41.81 Sepsis due to Enterococcus (principal); G93.41 Metabolic encephalopathy; I50.43 Acute on chronic combined systolic (congestive) and diastolic (congestive) heart failure; I42.9 Cardiomyopathy, unspecified; I48.92 Unspecified atrial flutter; I69.351 Hemiplegia and hemiparesis following cerebral infarction affecting right dominant side; J44.1 Chronic obstructive pulmonary disease with (acute) exacerbation; L03.115 Cellulitis of right lower limb; L03.116 Cellulitis of left lower limb; N39.0 Urinary tract infection, site not specified; B96.1 Klebsiella pneumoniae [K. pneumoniae] as the cause of diseases classified elsewhere; E78.5 Hyperlipidemia, unspecified; E87.5 Hyperkalemia; F17.210 Nicotine dependence, cigarettes, uncomplicated; G89.29 Other chronic pain; I08.3 Combined rheumatic disorders of mitral, aortic and tricuspid valves; I11.0 Hypertensive heart disease with heart failure; I25.10 Atherosclerotic heart disease of native coronary artery without angina pectoris; I27.20 Pulmonary hypertension, unspecified; I44.30 Unspecified atrioventricular block; I48.2 Chronic atrial fibrillation; I69.320 Aphasia following cerebral infarction; K21.9 Gastro-esophageal reflux disease without esophagitis; N28.9 Disorder of kidney and ureter, unspecified; I69.321 Dysphasia following cerebral infarction; R79.1 Abnormal coagulation profile; T45.515A Adverse effect of anticoagulants, initial encounter; Z74.01 Bed confinement status; Z79.01 Long term (current) use of anticoagulants; Z79.51 Long term (current) use of inhaled steroids; Z79.84 Long term (current) use of oral hypoglycemic drugs; Z80.3 Family history of malignant neoplasm of breast; Z87.440 Personal history of urinary (tract) infections; Z99.81 Dependence on supplemental oxygen; Z79.4 Long term (current) use of insulin; Z79.891 Long term (current) use of opiate analgesic; Z79.899 Other long term (current) drug therapy; Z87.820 Personal history of traumatic brain injury; Z87.81 Personal history of (healed) traumatic fracture
CPT/HCPCS: 36415; 70450; 71046; 80048; 80053; 81001; 82550; 82553; 83036; 83605; 83735; 83880; 84484; 85025; 85610; 85730; 87040; 87070; 87077; 87086; 87186; 87205; 93005; 93306; 94640; 94760; 95819; 96374; 96375; 99285

== ENCOUNTER 2018-01-05 16:50 | Inpatient (IN) | payer MEDICARE ==
[2018-01-05] MEDS ORDERED: SODIUM CHLORIDE 0.9% 1,000 ML IV STA (17:24)
[2018-01-05] MEDS ORDERED: SODIUM CHLORIDE 0.9% 500 ML IV STA (17:24)
[2018-01-05] MEDS ORDERED: IPRATROPIUM-ALBUTEROL 3 ML NEB INHALATION STA (18:12)
--- NOTE | 2018-01-05 18:25 | XR ---
EXAMINATION TYPE: XR chest 2V DATE OF EXAM: 01/05/2018 COMPARISON: 12/29/2017 HISTORY: Short of breath TECHNIQUE: Frontal and lateral views of the chest are obtained. FINDINGS: Heart is enlarged. There is mild pulmonary congestion. There is some blunting of right cos tophrenic angle. IMPRESSION: There is new mild congestive heart failure. There is new right pleural effusion compared to old exam. No pulmonary consolidation.
[2018-01-05 18:32] LABS: Anisocytosis Slight; Basophils % (A) 0 %; Eosinophils # (A) 0.2 k/uL (0-0.7); Eosinophils % (A) 1 %; HCT 47.1 % (34.0-46.0); HGB 14.5 gm/dL (11.4-16.0); Hypochromasia Marked; Lymphocytes % (A) 9 %; MCH 30.2 pg (25.0-35.0); MCHC 30.8 g/dL (31.0-37.0); MCV 98.2 fL (80.0-100.0); Macrocytosis Slight; Mean Platelet Volume 7.7; Monocytes # (A) 0.5 k/uL (0-1.0); Monocytes % (A) 5 %; Neutrophils # (A) 9.6 k/uL (1.3-7.7); Neutrophils % (A) 84 %; Platelet Count 187 k/uL (150-450); RDW 16.9 % (11.5-15.5); WBC 11.5 k/uL (3.8-10.6)
[2018-01-05 18:51] LABS: ALT 28 U/L (9-52); AST 55 U/L (14-36); Albumin 3.7 g/dL (3.5-5.0); Alkaline Phosphatase 127 U/L (38-126); Anion Gap 10 mmol/L; Blood Urea Nitrogen 37 mg/dL (7-17); Calcium 9.1 mg/dL (8.4-10.2); Carbon Dioxide 27 mmol/L (22-30); Chloride 104 mmol/L (98-107); Glucose 89 mg/dL (74-99); Magnesium 2.3 mg/dL (1.6-2.3); Partial Thromboplastin Time 22.7 sec (22.0-30.0); Potassium 4.7 mmol/L (3.5-5.1); Prothrombin Time 17.8 sec (9.0-12.0); Sodium 141 mmol/L (137-145); Total Bilirubin 3.1 mg/dL (0.2-1.3); Total Protein 6.8 g/dL (6.3-8.2)
[2018-01-05] MEDS ORDERED: ASPIRIN 325 MG TAB PO STA (19:03)
[2018-01-05] MEDS ORDERED: FUROSEMIDE 10 MG/ML 10 ML VIAL IV STA (19:07)
--- NOTE | 2018-01-05 19:10 | ED ---
SOB HPI - General Chief Complaint: Shortness of Breath Stated Complaint: Leg pain Time Seen by Provider: 01/05/18 17:11 Source: patient, EMS, RN notes reviewed, old records reviewed Mode of arrival: ambulatory Limitations: no limitations - History of Present Illness Initial Comments: This is a 67-year-old female with a past medical history of CHF, COPD, CVA TIA GERD presents emergency department if shortness of breath and right leg pain. Patient arrives to emergency department with her legs wrapped and bilaterally strips. Patient has right leg cellulitis with enterococcus faecalis and Klebsiella pneumonia. Patient was discharged yesterday from the hospital and was adamant about not going to an extended-care for study. She was discharged home. Patient arrives today and states that was a poor decision and would like to be admitted for inpatient treatment and extended-care facility placement. - Related Data Home Medications Medication Instructions Recorded Confirmed Tiotropium [place] [Spiriva] 1 cap INHALATION RT-DAILY 05/01/17 01/05/18 Metoprolol Tartrate [Lopressor] 50 mg PO DAILY 11/02/17 01/05/18 Levothyroxine Sodium [Synthroid] 25 mcg PO DAILY 12/18/17 01/05/18 Furosemide [Lasix] 20 mg PO DAILY 12/29/17 01/05/18 Cefuroxime Axetil [Ceftin] 500 mg PO BID 01/05/18 01/05/18 Previous Rx's Medication Instructions Recorded Acetaminophen Tab [Tylenol] 650 mg PO Q6HR PRN tab 12/23/17 Budesonide-Formot 160-4.5 Mcg 2 puff INHALATION RT-BID #1 puff 12/23/17 [Symbicort 160-4.5 Mcg Inhaler] Metoprolol Tartrate [Lopressor] 25 mg PO HS #30 tab 12/23/17 Budesonide [Pulmicort] 1 mg INHALATION RT-BID #60 nebu 01/03/18 Formoterol Fumarate [Perforomist] 20 mcg INHALATION RT-BID #60 nebu 01/03/18 Insulin Detemir [Levemir] 20 unit SQ HS #1 syr 01/03/18 Ipratropium-Albuterol Nebulize 3 ml INHALATION RT-QID #120 01/03/18 [Duoneb 0.5 mg-3 mg/3 ml Soln] ampul.neb Pantoprazole [Protonix] 40 mg PO AC-BRKFST #30 tablet. 01/03/18 SILVER sulfADIAZINE Cream 1 applic TOPICAL BID applic 01/03/18 [Silvadene 1% Cream] Warfarin Sodium [Coumadin] 4 mg PO DAILY #7 tablet 01/03/18 Allergies Allergy/AdvReac Type Severity Reaction Status Date / Time No Known Allergies Allergy Verified 01/05/18 17:41 Review of Systems ROS Statement: Those systems with pertinent positive or pertinent negative responses have been documented in the HPI. ROS Other: All systems not noted in ROS Statement are negative. Past Medical History Past Medical History: Atrial Fibrillation, Chest Pain / Angina, Heart Failure, COPD, CVA/TIA, GERD/Reflux, Hyperlipidemia, Hypertension, Osteoarthritis (OA), Pneumonia, Renal Disease Additional Past Medical History / Comment(s): 2001 CVA with R sided weakness arm /leg/contracted R hand and dysphasia, Afib with RVR, cardiac valve disease, DJD , occasional back pain, bronchitis, UTIs, kidney infections, anemia, head injury. 2018 CVA with right side flaccid and dysphagia, recent hospitalization for COPD exacerbation in addition to a right lower lobectomy cellulitis. Recent treatment for enterococcus patient septicemia. History of Any Multi-Drug Resistant Organisms: None Reported Past Surgical History: Section, Hernia Repair, Orthopedic Surgery, Tonsillectomy Additional Past Surgical History / Comment(s): Incarcerated umbilical hernia repair/omentum resection, X2, L tibial IM nailing, teeth extractions. Past Anesthesia/Blood Transfusion Reactions: No Reported Reaction Past Psychological History: No Psychological Hx Reported Smoking Status: Former smoker Past Alcohol Use History: None Reported Past Drug Use History: None Reported - Past Family History Father Family Medical History: No Reported History Additional Family Medical History / Comment(s): FATHER WAS HEALTHY AND LIVED TO BE 96YRS OLD. Mother Family Medical History: Cancer Additional Family Medical History / Comment(s): MOTHER HAD BREAST CANCER. General Exam - General Exam Comments Initial Comments: 67-year-old female. Patient is obese, unkempt. Limitations: no limitations General appearance: alert, in no apparent distress Head exam: Present: atraumatic, normocephalic, normal inspection Eye exam: Present: normal appearance, PERRL, EOMI. Absent: scleral icterus, conjunctival injection, periorbital swelling ENT exam: Present: normal exam Neck exam: Present: normal inspection. Absent: tenderness, meningismus, lymphadenopathy Respiratory exam: Present: wheezes, decreased breath sounds. Absent: normal lung sounds bilaterally, respiratory distress, rales, rhonchi, stridor Cardiovascular Exam: Present: normal rhythm, normal heart sounds. Absent: regular rate, systolic murmur, diastolic murmur, rubs, gallop, clicks Extremities exam: Present: full ROM, normal capillary refill, other (Patient's lower extremities are cool to touch. She reports is chronic. She has chronic right-sided weakness no deficit. Patient has bilateral Heraclio wraps. Evidence of wounds over the right lower extremity.). Absent: normal inspection, tenderness , pedal edema, joint swelling, calf tenderness Back exam: Present: normal inspection Neurological exam: Present: alert, oriented X3, CN II-XII intact Psychiatric exam: Present: normal affect, normal mood Skin exam: Present: warm, dry, intact, normal color. Absent: rash Course Vital Signs 01/05/18 01/05/18 01/05/18 17:01 17:06 18:46 Temperature 97.6 F Pulse Rate 68 76 Respiratory 18 20 Rate Blood Pressure 124/74 O2 Sat by Pulse 97 Oximetry 01/05/18 01/05/18 18:51 19:21 Temperature 97.7 F Pulse Rate 78 92 Respiratory 22 Rate Blood Pressure 124/76 O2 Sat by Pulse 97 Oximetry Medical Decision Making - Medical Decision Making 67-year-old female with multiple comorbidities presents today with worsening shortness of breath and pain in her right leg. She is discharged home after an extended stay. Patient was found to be in atrial fibrillation, is chronic for the Patient. She is on Coumadin. She does have history of CVA chronic right- sided weakness. She also is being treated for cellulitis over the right lower extremity. At this time Patient lungs sounds are diminished. Chest x-ray shows evidence of right-sided pleural effusion and mild to moderate CHF. BNP is elevated course 700. Patient started on IV Lasix and Nitropaste. Patient denies any specific chest pain at this time. She does have a mildly elevated troponin most likely reflective from CHF. I did give the Patient 2 g of Kefzol to cover for the right leg cellulitis. She did have ultrasound last week which were negative for DVT. INR is 2.0 at this time. Patient was given a breathing treatment as well for her underlying COPD. At this time I discussed case with Dr. Diane who accepts admission. Consult to cardiology and pulmonology, infectious disease. - Lab Data Result diagrams: 01/05/18 18:11 01/05/18 18:11 Lab Results 01/05/18 01/05/18 01/05/18 Range/Units 18:11 18:11 18:11 WBC 11.5 H (3.8-10.6) k/uL RBC 4.80 (3.80-5.40) m/uL Hgb 14.5 (11.4-16.0) gm/dL Hct 47.1 H (34.0-46.0) % MCV 98.2 (80.0-100.0) fL MCH 30.2 (25.0-35.0) pg MCHC 30.8 L (31.0-37.0) g/dL RDW 16.9 H (11.5-15.5) % Plt Count 187 (150-450) k/uL Neutrophils % 84 % Lymphocytes % 9 % Monocytes % 5 % Eosinophils % 1 % Basophils % 0 % Neutrophils # 9.6 H (1.3-7.7) k/uL Lymphocytes # 1.0 (1.0-4.8) k/uL Monocytes # 0.5 (0-1.0) k/uL Eosinophils # 0.2 (0-0.7) k/uL Basophils # 0.0 (0-0.2) k/uL Hypochromasia Marked Anisocytosis Slight Macrocytosis Slight PT (9.0-12.0) sec INR (<1.2) APTT (22.0-30.0) sec Sodium 141 (137-145) mmol/L Potassium 4.7 (3.5-5.1) mmol/L Chloride 104 (98-107) mmol/L Carbon Dioxide 27 (22-30) mmol/L Anion Gap 10 mmol/L BUN 37 H (7-17) mg/dL Creatinine 0.77 (0.52-1.04) mg/dL Est GFR (CKD-EPI)AfAm >90 (>60 ml/min/1.73 sqM) Est GFR (CKD-EPI)NonAf 80 (>60 ml/min/1.73 sqM) Glucose 89 (74-99) mg/dL Calcium 9.1 (8.4-10.2) mg/dL Magnesium 2.3 (1.6-2.3) mg/dL Total Bilirubin 3.1 H (0.2-1.3) mg/dL AST 55 H (14-36) U/L ALT 28 (9-52) U/L Alkaline Phosphatase 127 H (38-126) U/L Total Creatine Kinase 40 (30-135) U/L CK-MB (CK-2) 3.1 H (0.0-2.4) ng/mL CK-MB (CK-2) Rel Index 7.8 Troponin I 0.036 H* (0.000-0.034) ng/mL NT-Pro-B Natriuret Pep pg/mL Total Protein 6.8 (6.3-8.2) g/dL Albumin 3.7 (3.5-5.0) g/dL 01/05/18 01/05/18 Range/Units 18:11 18:11 WBC (3.8-10.6) k/uL RBC (3.80-5.40) m/uL Hgb (11.4-16.0) gm/dL Hct (34.0-46.0) % MCV (80.0-100.0) fL MCH (25.0-35.0) pg MCHC (31.0-37.0) g/dL RDW (11.5-15.5) % Plt Count (150-450) k/uL Neutrophils % % Lymphocytes % % Monocytes % % Eosinophils % % Basophils % % Neutrophils # (1.3-7.7) k/uL Lymphocytes # (1.0-4.8) k/uL Monocytes # (0-1.0) k/uL Eosinophils # (0-0.7) k/uL Basophils # (0-0.2) k/uL Hypochromasia Anisocytosis Macrocytosis PT 17.8 H (9.0-12.0) sec INR 2.0 H (<1.2) APTT 22.7 (22.0-30.0) sec Sodium (137-145) mmol/L Potassium (3.5-5.1) mmol/L Chloride (98-107) mmol/L Carbon Dioxide (22-30) mmol/L Anion Gap mmol/L BUN (7-17) mg/dL Creatinine (0.52-1.04) mg/dL Est GFR (CKD-EPI)AfAm (>60 ml/min/1.73 sqM) Est GFR (CKD-EPI)NonAf (>60 ml/min/1.73 sqM) Glucose (74-99) mg/dL Calcium (8.4-10.2) mg/dL Magnesium (1.6-2.3) mg/dL Total Bilirubin (0.2-1.3) mg/dL AST (14-36) U/L ALT (9-52) U/L Alkaline Phosphatase (38-126) U/L Total Creatine Kinase (30-135) U/L CK-MB (CK-2) (0.0-2.4) ng/mL CK-MB (CK-2) Rel Index Troponin I (0.000-0.034) ng/mL NT-Pro-B Natriuret Pep 4730 pg/mL Total Protein (6.3-8.2) g/dL Albumin (3.5-5.0) g/dL 01/05/18 19:14 EKG shows atrial fibrillation, low-voltage QRS. He clearly requires 5. Nonspecific T-wave abnormality. Ventricular rate 97 bpm. NC interval undetected. Dressed ration 104. QTQTC 310/a 93. - Radiology Data Radiology results: report reviewed Mild congestive heart failure. Pleural effusion compared old exam. No pulmonary consolidation. Disposition Clinical Impression: Cellulitis of right lower extremity, Congestive heart failure, COPD (chronic obstructive pulmonary disease), Afib, Pleural effusion Disposition: ADMITTED IP TO THIS HOSP Condition: Stable Is patient prescribed a controlled substance at d/c from ED?: No Referrals: None,Stated [Primary Care Provider] - 1-2 days Time of Disposition: 19:52
[2018-01-05] MEDS ORDERED: ceFAZolin IN SWFI 2 GM/20 ML SYRINGE IVP STA (19:13)
[2018-01-05] MEDS ORDERED: FUROSEMIDE 10 MG/ML 4 ML VIAL IV SCH (19:15)
[2018-01-05 19:17] LABS: Creatine Kinase MB 3.1 ng/mL (0.0-2.4)
[2018-01-05] MEDS: SODIUM CHLORIDE 0.9% 1,000 ML IV SCH (19:26)
[2018-01-05 19:43] LABS: Troponin I 0.036 ng/mL (0.000-0.034)
[2018-01-05] MEDS ORDERED: SYMBICORT 160-4.5 MCG INHALER INHALATION SCH (20:00)
[2018-01-05] MEDS: FORMOTEROL FUMARATE 20 MCG/2 ML NEBU INHALATION SCH (20:38)
[2018-01-05] MEDS: BUDESONIDE 1 MG/2 ML NEBU INHALATION SCH (20:38)
[2018-01-05 22:19] LABS: Glucose,Whole Blood 90 mg/dL (75-99)
[2018-01-05] MEDS: METOPROLOL TARTRATE 25 MG TAB PO SCH (22:21)
[2018-01-05] MEDS: NITROGLYCERIN OINT 1 INCH/GM PACKET TOPICAL SCH (22:22)
[2018-01-05] MEDS: INSULIN DETEMIR 100 UNIT/ML 10 ML VIAL SQ SCH (22:39)
[2018-01-06] MEDS: FUROSEMIDE 10 MG/ML 4 ML VIAL IV SCH ×3 (05:29→20:46)
[2018-01-06] MEDS: LEVOTHYROXINE 25 MCG TAB PO SCH (05:29)
[2018-01-06 05:51] LABS: Glucose,Whole Blood 85 mg/dL (75-99)
[2018-01-06] MEDS: PANTOPRAZOLE 40 MG TABLET PO SCH (06:25)
[2018-01-06] MEDS ORDERED: NON-FORMULARY DRUG (Tiotropium Bromide [Spiriva] 1 CAP) INHALATION SCH (08:00)
[2018-01-06] MEDS: BUDESONIDE 1 MG/2 ML NEBU INHALATION SCH ×2 (08:04→21:00)
[2018-01-06] MEDS: FORMOTEROL FUMARATE 20 MCG/2 ML NEBU INHALATION SCH ×2 (08:04→21:00)
[2018-01-06] MEDS: IPRATROPIUM-ALBUTEROL 3 ML NEB INHALATION SCH ×4 (08:04→21:00)
[2018-01-06] MEDS: NITROGLYCERIN OINT 1 INCH/GM PACKET TOPICAL SCH (09:12)
[2018-01-06] MEDS: METOPROLOL TARTRATE 50 MG TAB PO SCH (09:12)
--- NOTE | 2018-01-06 10:40 | P.CRDCN ---
History of Present Illness History of present illness: Mrs. Mills is a pleasant 67-year-old female past medical history significant for chronic persistent atrial fibrillation on long-term anticoagulation, history of CVA causing persistent right-sided flaccidity as well as slurring of speech and expressive aphasia, history of COPD on home oxygen, hypertension, dyslipidemia, GERD, anemia and chronic nicotine dependence. She follows with Dr. Bosch in the office. We've been asked to see her in consultation for heart failure. She was just discharged from the hospital on January 04. At that time she was discharged home although was recommended that she go to a rehab facility. She presented to the hospital yesterday evening stating that she was unable to tolerate home and requesting admission to [facility]. She was seen in consultation by cardiology at that time. The diagnosis for shortness of breath was secondary to advanced COPD with no evidence of congestive cardiac failure. She was discharged home on Lasix 20 mg daily. She has bilateral lower extremity edema and weeping secondary to cellulitis. At the time of my exam she is seen resting comfortably in bed in no acute distress. She denies symptoms of chest pain, shortness of breath, dizziness or palpitations. She states she is unable to change the dressings on her legs. She has significant lower extremity edema, bilateral Heraclio wraps in place. She has been started on Lasix 40 mg IV 3 times a day since admission. EKG reveals atrial fibrillation with controlled ventricular response heart rate is 97. Chest x-ray reveals mild CHF with a new right pleural effusion compared to old exam with no pulmonary consolidation noted. Laboratory data reviewed, WBC 11.5, hemoglobin 14.5, platelets 187, INR 2.0, sodium 141, potassium 4.7, creatinine 0.77, magnesium 2.3, troponin 0.036, 0.034 , 0.043 and probe BNP 4730 up from 2370 on December 29. Current cardiac medications include Coumadin, Lopressor 50 mg in the a.m. and 25 mg p.m., Lasix 20 mg daily. She also takes Pulmicort, from Inderal, Levemir , DuoNeb, Synthroid, Protonix, start on Ceftin. Echocardiogram obtained reveals mildly impaired left ventricular systolic function with ejection fraction 45-50%, severely impaired left ventricular systolic function, mild MR with mean across the valve 6.35 mmHg, mild thickening of the mitral leaflet, moderate to severe TR, severe pulmonary hypertension with RVSP of 52.58 mmHg. At the time of my exam: CONSTITUTIONAL: Denies fever. Denies chills. EYES: Denies blurred vision. Denies vision changes. Denies eye pain. EARS, NOSE, MOUTH & THROAT: Denies headache. Denies sore throat. Denies ear pain. CARDIOVASCULAR: Denies chest pain. Denies shortness of breath. Denies orthopnea. Denies PND. Denies palpitations. RESPIRATORY: Denies cough. GASTROINTESTINAL: Denies abdominal pain. Denies diarrhea. Denies constipation. Denies nausea. Denies vomiting. MUSCULOSKELETAL: Denies myalgias. INTEGUMENTARY: Denies pruitis. Denies rash. NEUROLOGIC: Denies numbness. Denies tingling. Denies weakness. PSYCHIATRIC: Denies anxiety. Denies depression. ENDOCRINE: Denies fatigue. Denies weight change. Denies polydipsia. Denies polyurina. GENITOURINARY: Denies burning, hematuria or urgency with micturation. HEMATOLOGIC: Denies history of anemia. Denies bleeding. Blood pressure 97/60 heart rate 66 afebrile maintaining oxygen saturation on room air GENERAL: This is a 67-year-old female in no apparent distress at the time of my examination. HEENT: Head is atraumatic, normocephalic. Pupils are equal, round. Sclerae anicteric. Conjunctivae are clear. Mucous membranes of the mouth are moist. Neck is supple. There is no jugular venous distention. No carotid bruit is heard. LUNGS: Clear to auscultation no wheezes, rales or rhonchi. No chest wall tenderness is noted on palpation or with deep breathing. HEART: Regular rate and rhythm with systolic ejection murmur at the left sternal border, no rubs or gallops. S1 and S2 heard. ABDOMEN: Soft, nontender. Bowel sounds are heard. No organomegaly noted. EXTREMITIES: Significant bilateral lower extremity edema, Heraclio wraps in place. No calf tenderness noted. VASCULAR: Radial and dorsalis pedis pulses palpated, no evidence of clubbing. NEUROLOGIC: Patient is awake, alert and oriented x3. ASSESSMENT Acute on chronic heart failure with mixed systolic and diastolic heat failure with elevated NT proBNP Mild troponin leak, not indicative of an acute event without typical pattern. Pulmonary hypertension Tricuspid and mitral regurgitation COPD Bilateral lower extremity cellulitus Chronic persistent atrial fibrillation with controlled ventricular response on strategic advisor anticoagulation with coumadin and therapeutic INR Hypertension Dyslipidema History CVA Chronic nicotine dependence PLAN Agree with IV diuresis. Accurate intake and output as well as daily weights. Check electrolytes and kidney function in the morning. Continue with beta blockers and anticoagulation. Will add on small dose of HERACLIO inhibitor and follow potassium, had had mildly elevated potassium in the past. Discontinue nitropaste. Further recommendations to follow. Thank you kindly for this consultation. Nurse Practitioner note has been reviewed, I agree with a documented findings and plan of care. Patient was seen and examined. Past Medical History Past Medical History: Atrial Fibrillation, Chest Pain / Angina, Heart Failure, COPD, CVA/TIA, GERD/Reflux, Hyperlipidemia, Hypertension, Osteoarthritis (OA), Pneumonia, Renal Disease Additional Past Medical History / Comment(s): 2001 CVA with R sided weakness arm /leg/contracted R hand and dysphasia, Afib with RVR, cardiac valve disease, DJD , occasional back pain, bronchitis, UTIs, kidney infections, anemia, head injury. 2018 CVA with right side flaccid and dysphagia, recent hospitalization for COPD exacerbation in addition to a right lower lobectomy cellulitis. Recent treatment for enterococcus patient septicemia. History of Any Multi-Drug Resistant Organisms: None Reported Past Surgical History: Section, Hernia Repair, Orthopedic Surgery, Tonsillectomy Additional Past Surgical History / Comment(s): Incarcerated umbilical hernia repair/omentum resection, X2, L tibial IM nailing, teeth extractions. Past Anesthesia/Blood Transfusion Reactions: No Reported Reaction Past Psychological History: No Psychological Hx Reported Additional Psychological History / Comment(s): Lives in a senior apartment. Her daughter does help. She is a reformed smoker. No experience. No animals in the home Smoking Status: Former smoker Past Alcohol Use History: None Reported Additional Past Alcohol Use History / Comment(s): has smoked off and on since age 14 Past Drug Use History: None Reported - Past Family History Father Family Medical History: No Reported History Additional Family Medical History / Comment(s): FATHER WAS HEALTHY AND LIVED TO BE 96YRS OLD. Mother Family Medical History: Cancer Additional Family Medical History / Comment(s): MOTHER HAD BREAST CANCER. Medications and Allergies Home Medications Medication Instructions Recorded Confirmed Type Tiotropium [place] [Spiriva] 1 cap INHALATION RT-DAILY 05/01/17 01/05/18 History Metoprolol Tartrate [Lopressor] 50 mg PO DAILY 11/02/17 01/05/18 History Levothyroxine Sodium [Synthroid] 25 mcg PO DAILY 12/18/17 01/05/18 History Acetaminophen Tab [Tylenol] 650 mg PO Q6HR PRN tab 12/23/17 01/05/18 Rx Budesonide-Formot 160-4.5 Mcg 2 puff INHALATION RT-BID #1 puff 12/23/17 Rx [Symbicort 160-4.5 Mcg Inhaler] Metoprolol Tartrate [Lopressor] 25 mg PO HS #30 tab 12/23/17 01/05/18 Rx Furosemide [Lasix] 20 mg PO DAILY 12/29/17 01/05/18 History Budesonide [Pulmicort] 1 mg INHALATION RT-BID #60 nebu 01/03/18 01/05/18 Rx Formoterol Fumarate [Perforomist] 20 mcg INHALATION RT-BID #60 nebu 01/03/18 Rx Insulin Detemir [Levemir] 20 unit SQ HS #1 syr 01/03/18 01/05/18 Rx Ipratropium-Albuterol Nebulize 3 ml INHALATION RT-QID #120 01/03/18 01/05/18 Rx [Duoneb 0.5 mg-3 mg/3 ml Soln] ampul.neb Pantoprazole [Protonix] 40 mg PO AC-BRKFST #30 tablet. 01/03/18 01/05/18 Rx SILVER sulfADIAZINE Cream 1 applic TOPICAL BID applic 01/03/18 01/05/18 Rx [Silvadene 1% Cream] Warfarin Sodium [Coumadin] 4 mg PO DAILY #7 tablet 01/03/18 01/05/18 Rx Cefuroxime Axetil [Ceftin] 500 mg PO BID 01/05/18 01/05/18 History Allergies Allergy/AdvReac Type Severity Reaction Status Date / Time No Known Allergies Allergy Verified 01/05/18 17:41 Physical Exam Vitals: Vital Signs Temp Pulse Pulse Resp BP BP Pulse Ox 01/06/18 08:22 80 01/06/18 08:15 84 01/06/18 08:14 84 01/06/18 08:04 80 01/06/18 08:00 97.1 F L 66 18 97/60 97 01/06/18 03:49 97.3 F L 74 18 102/65 94 L 01/05/18 23:05 98.1 F 80 18 123/73 95 01/05/18 20:09 74 20 115/79 98 01/05/18 20:00 97.4 F L 81 18 118/78 94 L 01/05/18 19:21 97.7 F 92 22 124/76 97 01/05/18 18:51 78 01/05/18 18:46 76 01/05/18 17:06 20 01/05/18 17:01 97.6 F 68 18 124/74 97 Intake and Output 01/05/18 01/06/18 01/06/18 22:59 06:59 14:59 Intake Total 220 180 Balance 220 180 Intake: Intake, IV Titration 20 Amount Sodium Chloride 0.9% 1, 20 000 ml @ 20 mls/hr IV . Q24H [facility] Rx#:[id number] Oral 200 180 Other: Voiding Method Diaper Bedpan Diaper Weight 86.183 kg 107 kg Results 01/05/18 18:11 01/05/18 18:11 Cardiac Enzymes 01/05/18 01/05/18 01/06/18 Range/Units 18:11 18:11 00:12 AST 55 H (14-36) U/L CK-MB (CK-2) 3.1 H (0.0-2.4) ng/mL Troponin I 0.036 H* 0.034 (0.000-0.034) ng/mL 01/06/18 Range/Units 06:09 AST (14-36) U/L CK-MB (CK-2) (0.0-2.4) ng/mL Troponin I 0.043 H* (0.000-0.034) ng/mL Coagulation 01/05/18 Range/Units 18:11 PT 17.8 H (9.0-12.0) sec APTT 22.7 (22.0-30.0) sec CBC 01/05/18 Range/Units 18:11 WBC 11.5 H (3.8-10.6) k/uL RBC 4.80 (3.80-5.40) m/uL Hgb 14.5 (11.4-16.0) gm/dL Hct 47.1 H (34.0-46.0) % Plt Count 187 (150-450) k/uL Comprehensive Metabolic Panel 01/05/18 Range/Units 18:11 Sodium 141 (137-145) mmol/L Potassium 4.7 (3.5-5.1) mmol/L Chloride 104 (98-107) mmol/L Carbon Dioxide 27 (22-30) mmol/L BUN 37 H (7-17) mg/dL Creatinine 0.77 (0.52-1.04) mg/dL Glucose 89 (74-99) mg/dL Calcium 9.1 (8.4-10.2) mg/dL AST 55 H (14-36) U/L ALT 28 (9-52) U/L Alkaline Phosphatase 127 H (38-126) U/L Total Protein 6.8 (6.3-8.2) g/dL Albumin 3.7 (3.5-5.0) g/dL Current Medications Generic Name Dose Route Start Last Admin Trade Name Freq PRN Reason Stop Dose Admin Albuterol/Ipratropium 3 ml 01/06/18 08:00 01/06/18 08:04 Duoneb 0.5 Mg-3 Mg/3 Ml Soln INHALATION 3 ml RT-QID KALINA Administration Budesonide 1 mg 01/05/18 21:00 01/06/18 08:04 Pulmicort INHALATION 1 mg RT-BID KALINA Administration Formoterol Fumarate 20 mcg 01/05/18 21:00 01/06/18 08:04 Perforomist INHALATION 20 mcg RT-BID KALINA Administration Furosemide 40 mg 01/06/18 04:00 01/06/18 05:29 Lasix IV 40 mg Q8H [facility]ALINA Administration Sodium Chloride 1,000 mls @ 20 mls/hr 01/05/18 19:15 01/05/18 19:26 Saline 0.9% IV 20 mls/hr .Q24H KALINA Administration Insulin Detemir 20 unit 01/05/18 21:00 01/05/18 22:39 Levemir SQ 20 unit HS KALINA Administration Levothyroxine Sodium 25 mcg 01/06/18 06:30 01/06/18 05:29 Synthroid PO 25 mcg DAILY@0630 [facility] Administration Metoprolol Tartrate 25 mg 01/05/18 21:00 01/05/18 22:21 Lopressor PO 25 mg HS KALINA Administration Metoprolol Tartrate 50 mg 01/06/18 09:00 01/06/18 09:12 Lopressor PO 50 mg DAILY [facility]AL[facility] Administration Nitroglycerin 1 inch 01/05/18 22:00 01/06/18 09:12 Nitro-Bid Oint TOPICAL Not Given QID [facility] Pantoprazole Sodium 40 mg 01/06/18 07:30 01/06/18 06:25 Protonix PO 40 mg AC-BRKFST [facility] Administration Silver Sulfadiazine 1 applic 01/05/18 21:00 01/05/18 22:22 Silvadene Cream TOPICAL 1 applic BID [facility] Administration Warfarin Sodium 4 mg 01/06/18 18:00 Coumadin PO DAILY@1800 [facility] Intake and Output 01/05/18 01/06/18 01/06/18 22:59 06:59 14:59 Intake Total 220 180 Balance 220 180 Intake: Intake, IV Titration 20 Amount Sodium Chloride 0.9% 1, 20 000 ml @ 20 mls/hr IV . Q24H [facility] Rx#:[id number] Oral 200 180 Other: Voiding Method Diaper Bedpan Diaper Weight 86.183 kg 107 kg 01/05/18 18:11 01/05/18 18:11
--- NOTE | 2018-01-06 11:39 | P.CNPUL ---
History of Present Illness Consult date: 01/06/18 Requesting physician: Rhona Verdugo Reason for consult: dyspnea, other Chief complaint: Dyspnea, right leg pain History of present illness: This is a 67-year-old white female patient who was just discharged from the hospital after being hospitalized for right leg cellulitis, acute exacerbation of congestive heart failure with systolic dysfunction, and COPD exacerbation, A. fib RVR, urinary tract infection. Patient was treated with IV antibiotics, bronchodilators, steroids, she had improved, and was discharged home on 2017, and the recommendation was made for rehab placement however the patient refused and insisted on going home. Patient has history of CVA with right hemiplegia, and she requires extensive assistance with activities of daily living regular basis, she lives with her son who provides her with assistance. Patient apparently started having shortness of breath at home, she tried her nebulized bronchodilators with no improvement, and subsequently called EMS. Denied any fever or chills, denied any increased chest congestion. Denied any chest pain, night any lightheadedness, dizziness, nausea, vomiting or diarrhea. Patient was complaining of increased right lower leg discomfort. During previous admission wound cultures were positive for Klebsiella pneumonia Klebsiella oxytoca, and urine cultures positive for Klebsiella pneumonia and enterococcus faecium. Patient was complaining a course of oral Ceftin, and she was getting wound care with Silvadene and Heraclio wraps to bilateral lower extremities. Chest x-ray showed new mild pulmonary congestion, and some blunting of the right costophrenic angle, which was compared to the previous chest x-ray from 12/29/2017. EKG showed atrial fibrillation with a controlled rate of 97 BPM. Labs showed WBC of 11.5, hemoglobin of 14.5, INR is 2.0, electrolytes were within normal limits, BUN is 37 and creatinine 0.77. AST was 55, ALT 28, alkaline phosphatase was 127, with total bilirubin of 3.1, troponins were 0.036, 0.034, 0.043, proBNP was elevated at 4730. She has been afebrile, room air pulse ox is 94%, she is hemodynamically stable, she is sitting up in bed, in no acute distress, she states her shortness of breath has improved, she is currently on room air, lung sounds reveal a few crackles at bilateral bases, no significant wheezing. Lower extremities are Heraclio wrapped. Patient was placed on IV diuretics, nebulized bronchodilators, IV Kefzol, was admitted for further management. Review of Systems All systems: negative Constitutional: Denies chills, Denies fever Eyes: denies blurred vision, denies pain Ears, nose, mouth and throat: Denies headache, Denies sore throat Cardiovascular: Denies chest pain, Denies shortness of breath Respiratory: Reports dyspnea, Denies cough Gastrointestinal: Denies abdominal pain, Denies diarrhea, Denies nausea, Denies vomiting Genitourinary: Denies dysuria, Denies hematuria Musculoskeletal: Reports gait dysfunction, Reports limitation of motion, Denies myalgias Integumentary: Denies pruritus, Denies rash Neurological: Denies numbness, Denies weakness Psychiatric: Denies anxiety, Denies depression Endocrine: Denies fatigue, Denies weight change Past Medical History Past Medical History: Atrial Fibrillation, Chest Pain / Angina, Heart Failure, COPD, CVA/TIA, GERD/Reflux, Hyperlipidemia, Hypertension, Osteoarthritis (OA), Pneumonia, Renal Disease Additional Past Medical History / Comment(s): 2002 CVA with R sided weakness arm /leg/contracted R hand and dysphasia, Afib with RVR, cardiac valve disease, DJD , occasional back pain, bronchitis, UTIs, kidney infections, anemia, head injury. 2018 CVA with right side flaccid and dysphagia, recent hospitalization for COPD exacerbation in addition to a right lower lobectomy cellulitis. Recent treatment for enterococcus patient septicemia. History of Any Multi-Drug Resistant Organisms: None Reported Past Surgical History: Section, Hernia Repair, Orthopedic Surgery, Tonsillectomy Additional Past Surgical History / Comment(s): Incarcerated umbilical hernia repair/omentum resection, X2, L tibial IM nailing, teeth extractions. Past Anesthesia/Blood Transfusion Reactions: No Reported Reaction Past Psychological History: No Psychological Hx Reported Additional Psychological History / Comment(s): Lives in a senior apartment. Her daughter does help. She is a reformed smoker. No experience. No animals in the home Smoking Status: Former smoker Past Alcohol Use History: None Reported Additional Past Alcohol Use History / Comment(s): has smoked off and on since age 14 Past Drug Use History: None Reported - Past Family History Father Family Medical History: No Reported History Additional Family Medical History / Comment(s): FATHER WAS HEALTHY AND LIVED TO BE 96YRS OLD. Mother Family Medical History: Cancer Additional Family Medical History / Comment(s): MOTHER HAD BREAST CANCER. Medications and Allergies Home Medications Medication Instructions Recorded Confirmed Type Tiotropium [place] [Spiriva] 1 cap INHALATION RT-DAILY 05/01/17 01/05/18 History Metoprolol Tartrate [Lopressor] 50 mg PO DAILY 11/02/17 01/05/18 History Levothyroxine Sodium [Synthroid] 25 mcg PO DAILY 12/18/17 01/05/18 History Acetaminophen Tab [Tylenol] 650 mg PO Q6HR PRN tab 12/23/17 01/05/18 Rx Budesonide-Formot 160-4.5 Mcg 2 puff INHALATION RT-BID #1 puff 12/23/17 Rx [Symbicort 160-4.5 Mcg Inhaler] Metoprolol Tartrate [Lopressor] 25 mg PO HS #30 tab 12/23/17 01/05/18 Rx Furosemide [Lasix] 20 mg PO DAILY 12/29/17 01/05/18 History Budesonide [Pulmicort] 1 mg INHALATION RT-BID #60 nebu 01/03/18 01/05/18 Rx Formoterol Fumarate [Perforomist] 20 mcg INHALATION RT-BID #60 nebu 01/03/18 Rx Insulin Detemir [Levemir] 20 unit SQ HS #1 syr 01/03/18 01/05/18 Rx Ipratropium-Albuterol Nebulize 3 ml INHALATION RT-QID #120 01/03/18 01/05/18 Rx [Duoneb 0.5 mg-3 mg/3 ml Soln] ampul.neb Pantoprazole [Protonix] 40 mg PO AC-BRKFST #30 tablet. 01/03/18 01/05/18 Rx SILVER sulfADIAZINE Cream 1 applic TOPICAL BID applic 01/03/18 01/05/18 Rx [Silvadene 1% Cream] Warfarin Sodium [Coumadin] 4 mg PO DAILY #7 tablet 01/03/18 01/05/18 Rx Cefuroxime Axetil [Ceftin] 500 mg PO BID 01/05/18 01/05/18 History Allergies Allergy/AdvReac Type Severity Reaction Status Date / Time No Known Allergies Allergy Verified 01/05/18 17:41 Physical Exam Vitals: Vital Signs Temp Pulse Pulse Resp BP BP Pulse Ox 01/06/18 08:22 80 01/06/18 08:15 84 01/06/18 08:14 84 01/06/18 08:04 80 01/06/18 08:00 97.1 F L 66 18 97/60 97 01/06/18 03:49 97.3 F L 74 18 102/65 94 L 01/05/18 23:05 98.1 F 80 18 123/73 95 01/05/18 20:09 74 20 115/79 98 01/05/18 20:00 97.4 F L 81 18 118/78 94 L 01/05/18 19:21 97.7 F 92 22 124/76 97 01/05/18 18:51 78 01/05/18 18:46 76 01/05/18 17:06 20 01/05/18 17:01 97.6 F 68 18 124/74 97 Intake and Output 01/05/18 01/06/18 01/06/18 22:59 06:59 14:59 Intake Total 220 180 Balance 220 180 Intake: Intake, IV Titration 20 Amount Sodium Chlor[place] 0.9% 1, 20 000 ml @ 20 mls/hr IV . Q24H [facility] Rx#:[id number] Oral 200 180 Other: Voiding Method Diaper Bedpan Diaper # Voids 1 Weight 86.183 kg 107 kg GENERAL EXAM: Alert, pleasant 67-year-old white female, with right-sided and right sided weakness, and significant expressive aphasia, slurring of speech comfortable in no apparent distress. HEAD: Normocephalic/atraumatic. EYES: Normal reaction of pupils, equal size. Conjunctiva pink, sclera white. NOSE: Clear with pink turbinates. THROAT: No erythema or exudates. NECK: No masses, no JVD, no thyroid enlargement, no adenopathy. CHEST: No chest wall deformity. Symmetrical expansion. LUNGS: Equal air entry with few bibasilar crackles, no wheeze, rhonchi or dullness. CVS: Regular rate and rhythm, normal S1 and S2, no gallops, no murmurs, no rubs ABDOMEN: Soft, nontender. No hepatosplenomegaly, normal bowel sounds, no guarding or rigidity. EXTREMITIES: No clubbing, no edema, no cyanosis, 2+ pulses and upper and lower extremities. MUSCULOSKELETAL: Muscle strength and tone normal. Patient has right lower extremity cellulitis, in the right leg is covered with the Heraclio wraps SPINE: No scoliosis or deformity SKIN: No rashes CENTRAL NERVOUS SYSTEM: Alert and oriented -3. No focal deficits, tone is normal in all 4 extremities. PSYCHIATRIC: Alert and oriented -3. Appropriate affect. Intact judgment and insight. Results - Laboratory Findings CBC and BMP: 01/05/18 18:11 01/05/18 18:11 PT/INR, D-dimer PT 17.8 sec (9.0-12.0) H 01/05/18 18:11 INR 2.0 (<1.2) H 01/05/18 18:11 Abnormal lab findings: Abnormal Labs 01/05/18 01/05/18 01/05/18 18:11 18:11 18:11 WBC 11.5 H Hct 47.1 H MCHC 30.8 L RDW 16.9 H Neutrophils # 9.6 H PT INR BUN 37 H Total Bilirubin 3.1 H AST 55 H Alkaline Phosphatase 127 H CK-MB (CK-2) 3.1 H Troponin I 0.036 H* 01/05/18 01/06/18 18:11 06:09 WBC Hct MCHC RDW Neutrophils # PT 17.8 H INR 2.0 H BUN Total Bilirubin AST Alkaline Phosphatase CK-MB (CK-2) Troponin I 0.043 H* - Diagnostic Findings Chest x-ray: report reviewed, image reviewed Additional studies: EKG reviewed Assessment and Plan Plan: #1. Acute exacerbation of chronic congestive heart failure with systolic dysfunction #2. Elevated troponins #3. Increase in dyspnea related to the above #4. Cellulitis of right lower extremity, with previous wound cultures positive for Klebsiella species #5. Recent hospitalization for multiple medical problems including acute exacerbation of congestive heart failure, COPD, A. fib RVR, UTI, and right leg cellulitis #6. Chronic atrial fibrillation, and the rate is currently controlled, and patient is on anticoagulation in the form of Coumadin #7. History of CVA, with right sided hemiplegia, slurring of speech and expressive aphasia #8. Chronic obstructive pulmonary disease on home oxygen, currently stable #9. Hypertension, hyperlipidemia #10. History of nicotine dependence Plan: Continue IV diuretics, from pulmonary standpoint patient is not bronchospastic or congested, her oxygenation is stable, continue with bronchodilators, no need for IV steroids at this time. Continue IV antibiotics. I performed a history & physical examination of the patient and discussed their management with my nurse practitioner, Ashleigh Odonnell. I reviewed the nurse practitioner's note and agree with the documented findings and plan of care. Lung sounds are positive for a few bibasilar rales. The findings and the impression was discussed with the patient. I attest to the documentation by the nurse practitioner. Time with Patient: Greater than 30
[2018-01-06 11:58] LABS: Glucose,Whole Blood 122 mg/dL (75-99)
[2018-01-06] MEDS ORDERED: ACETAMINOPHEN TAB 325 MG TAB PO PRN (14:18)
--- NOTE | 2018-01-06 14:53 | HP ---
HISTORY AND PHYSICAL DATE OF SERVICE: 01/06/2018 CHIEF COMPLAINTS: Shortness of breath. HISTORY OF PRESENT ILLNESS: This 67-year-old woman with a past medical history of multiple medical problems including atrial fibrillation, history of CHF, COPD, GERD, hypertension, being followed by Dr. Du Lancaster in the outpatient setting, was complaining of increasing shortness of breath. Apparently the BiPAP is not working at home. The patient was recently admitted on multiple occasions to [facility] and the patient was recommended ECF rehab, but the patient declined on several occasions. There is no history of any fever, rigors. No history of headache, loss of consciousness, seizures. The patient has some generalized tiredness and weakness. The patient also had bilateral leg deep erythema and cyanosis also. PAST MEDICAL HISTORY: History of atrial fibrillation, history of CHF, COPD, CVA, TIA, GERD, hypertension, history of DJD, history of right-sided weakness. MEDICATIONS: Prior to admission include home medications are: 1. Ceftin 500 mg p.o. b.i.d. 2. Coumadin 4 mg. 3. Spiriva 1 puff daily. 4. Silvadene 1 application b.i.d. 5. Protonix 40 mg p.o. at breakfast. 6. Lopressor 25 mg q.h.s. and 50 mg p.o. daily. 7. Synthroid 25 mcg p.o. 8. DuoNeb q.i.d. 9. Levemir 10 units subcu q.h.s. 10.Lasix 20 mg p.o. daily. 11.Perforomist 20 mcg b.i.d. 12.Symbicort 160/4.5 two puffs b.i.d. 13.Pulmicort 1 mg b.i.d. 14.Tylenol 650 q.6h p.r.n. ALLERGIES: None. FAMILY HISTORY: No history of heart disease or strokes in the family. SOCIAL HISTORY: Previous history of smoking. No history of current smoking or alcohol. REVIEW OF SYSTEMS: Could not be taken. The patient is dysarthric at this time. PHYSICAL EXAM: Patient is conscious, oriented x3. Pulse is 60, blood pressure 117/66, respiration 17, temperature normal, pulse ox 98% on room air. HEENT: Conjunctivae normal. Oral mucosa moist. NECK: No jugular venous distention. No carotid bruit. No lymph node enlargement. CARDIOVASCULAR: S1, S2. RESPIRATORY: Breath sounds diminished in the bases. A few scattered rhonchi and crackles. Expiratory wheezing also present. ABDOMEN: Soft, obese, nontender. No mass palpable. LEGS: No edema, no swelling. NERVOUS SYSTEM: Higher functions as mentioned earlier. Moves all four limbs. No focal motor deficits. LYMPHATICS: No lymphadenopathy in the neck, axillae, groin. SKIN: No ulcer, rash. Cellulitis of the right lower extremity also present. LABS: Troponin 0.043, otherwise WBC 11.5. INR is 2. Albumin is 3.1. ASSESSMENT: 1. Shortness of breath possibly multifactorial with chronic obstructive pulmonary disease acute exacerbation. 2. History of congestive heart failure with no evidence of acute exacerbation with chronic systolic dysfunction, ejection fraction 40-45 percent. 3. Aortic stenosis and significant pulmonary hypertension. 4. Klebsiella grown from the lower extremity cellulitis with sepsis present recently. 5. Chronic atrial fibrillation with rapid ventricular rate recently. 6. History of congestive heart failure. 7. History of chronic obstructive pulmonary disease. 8. History of cerebrovascular accident, transient ischemic attack. 9. Gastroesophageal reflux disease. 10.Hypertension. 11.History of pneumonia. 12.History of chronic kidney disease. 13.History of urinary tract infections. 14.History of section. 15.History of degenerative joint disease. 16.History of incarcerated umbilical hernia. RECOMMENDATIONS AND DISCUSSION: In this 67-year-old woman who presented with multiple complex medical issues, we will monitor the patient closely. Continue the current medications, optimize bronchodilator treatment and obtain pulmonary consultation with Dr. Troy. Resume the home medications. PT/OT evaluation to evaluate for possible ECF rehab. Guarded prognosis because of multiple complex medical issues. Further recommendations to follow. MMODL / IJN: [id number] /
[2018-01-06] MEDS ORDERED: VANCOMYCIN IV PER PHARMACY 1 EACH MISC MISCELLANE PRN (15:15)
[2018-01-06] MEDS ORDERED: VANCOMYCIN 2,000 MG in SODIUM CHLORIDE 0.9% 500 ML IVPB ONE (16:00)
[2018-01-06] MEDS: WARFARIN 2 MG TAB PO SCH (16:01)
--- NOTE | 2018-01-06 16:38 | CONS ---
CONSULTATION DATE OF SERVICE: 01/06/2018. REASON FOR CONSULTATION: Lower extremity cellulitis. HISTORY OF PRESENT ILLNESS: The patient is a 67-year-old female who was recently admitted at this facility with the patient was treated for UTI as well as lower extremity cellulitis. The patient did have cultures obtained from the leg wound which shows Klebsiella pneumoniae that was sensitive to ceftriaxone and Cipro. Urine was also showing Klebsiella pneumonia. The patient subsequently was discharged home on oral Ceftin as the patient refused to go to the custodial for rehab. The patient is now coming back into the [facility] ER last evening with chief complaints of shortness of breath. The patient denies having any significant chest pain. No significant cough or sputum production. No nausea, vomiting. No abdominal pain or diarrhea. The patient denies any pain into the legs with minimal redness and swelling on the right leg. No drainage. The patient was slightly lethargic. Unable to provide reliable history though. Some of the questions answeres were obtained after asking a leading question and reviewing of her chart. The patient has been admitted to the hospital. Infectious disease was consulted for recommendation regarding the cellulitis. She also had recent UTI with urine showing Enterococcus which was resistant to ampicillin and only to vancomycin. Those results were not available by the patient getting discharged from the hospital. REVIEW OF SYSTEMS: CONSTITUTIONAL: Positive for weakness. No fever has been recorded. Eyes no complaint. ENT no complaint. Respiratory as per HPI. Cardiovascular as per HPI. Genitourinary as per HPI. GASTROINTESTINAL: No complaint. Musculoskeletal no complaint. INTEGUMENTARY: As per HPI. PSYCHOLOGICAL: No complaint. Endocrine: No complaint. Neurologic no complaint. PAST MEDICAL HISTORY: Significant for atrial fibrillation, congestive heart failure. COPD, CVA, TIA, hypertension, hyperlipidemia, osteoarthritis, pneumonia, renal insufficiency, history of recurrent lower extremity cellulitis. PAST SURGICAL HISTORY: , hernia repair, tonsillectomy, incarcerated bowel, umbilical hernia repair with omental patch, left femur fracture repair with IM nailing. SOCIAL HISTORY: Positive for smoking. No drinking or drug use. FAMILY HISTORY: Mother with history of breast cancer. ALLERGIES: No known drug allergies. MEDICATION: Currently include the patient is on Tylenol, DuoNeb, Pulmicort, Lasix, NovoLog, Levemir, Synthroid, Zestril, Lopressor, Protonix, prednisone, Silvadene cream and Coumadin. EXAMINATION: Blood pressure 113/66 with a pulse of 60, temperature 97.1. She is 96% on room air. General description is an elderly female lying in bed in no distress. No tachypnea or accessory muscles of respiration use. HEENT: Shows no pallor or scleral icterus. Oral mucosa membranes are moist. No pharyngeal erythema or thrush. Neck trachea central. No thyromegaly. LUNGS: Unlabored breathing with decreased breath sounds in the bases. No wheeze or crackles. Heart S1, S2. Regular rate and rhythm. ABDOMEN: Soft, no tenderness. No guarding or rigidity. Extremities: Right leg with minimal erythema. Minimal redness. No significant purulent drainage. Cold to touch though. Neurological: Patient is awake. The patient is lethargic, but is arousable. Oriented x2. Mood and affect normal. LABS: BUN of 37, creatinine 0.77, hemoglobin is 14.5, white count 11.5. No UA during this admission. Chest x-ray showing mild congestive heart failure. New right pleural effusion compared to oral exam. No pulmonary consolidation. DIAGNOSTIC IMPRESSION/PLAN: Patient admitted to the hospital with increasing shortness of breath. The patient has likely underlying congestive heart failure. Clinically doubt pneumonia in a patient who did have a chronic lower extremity swelling and recurrent cellulitis with recent cultures done did show Klebsiella pneumonia. The patient also has a urinary tract infection which grew Klebsiella as well as enterococcus faecium. Repeat was positive for Enterococcus faecium that was unavailable by the time the patient discharged from the hospital. Now patient does have a component of mild cellulitis of the leg with underlying urinary tract infection not entirely excluded. PLAN: 1. We will obtain UA and culture straight catheterization to get a clean-catch sample. 2. The patient will be started on vancomycin pharmacy to dose target of 15 to cover for both the UTI as well as the lower extremity cellulitis while watching the kidney function closely. 3. [place]win the area of redness on the leg. 4. We will follow up on clinical condition as well as cultures to further adjust medication if needed. Thank you for this consultation. We will follow the patient along with you. MMODL / IJN: [id number] /
[2018-01-06 16:52] LABS: Glucose,Whole Blood 109 mg/dL (75-99)
[2018-01-06] MEDS: INSULIN ASPART 100 UNIT/ML 1 ML 10 ML VIAL SQ SCH ×2 (17:17→21:07)
[2018-01-06 18:27] LABS: Appearance,Urine Clear (Clear); Bilirubin,Urine Negative (Negative); Blood,Urine Negative (Negative); Color,Urine Yellow; Glucose,Urine (UA) Negative (Negative); Ketones,Urine Negative (Negative); Leukocyte Esterase,Urine Negative (Negative); Nitrite,Urine Negative (Negative); PH, Urine 5.5 (5.0-8.0); Protein,Urine Negative (Negative); Specific Gravity,Urine 1.008 (1.001-1.035); Urobilinogen,Urine <2.0 mg/dL (<2.0)
[2018-01-06] MEDS: SODIUM CHLORIDE 0.9% 1,000 ML IV SCH (20:38)
[2018-01-06] MEDS: INSULIN DETEMIR 100 UNIT/ML 10 ML VIAL SQ SCH (20:46)
[2018-01-06] MEDS: METOPROLOL TARTRATE 25 MG TAB PO SCH (20:46)
[2018-01-06 20:57] LABS: Glucose,Whole Blood 187 mg/dL (75-99)
[2018-01-07] MEDS: FUROSEMIDE 10 MG/ML 4 ML VIAL IV SCH ×3 (04:48→20:22)
[2018-01-07 06:03] LABS: Glucose,Whole Blood 121 mg/dL (75-99)
[2018-01-07] MEDS: INSULIN ASPART 100 UNIT/ML 1 ML 10 ML VIAL SQ SCH ×4 (06:10→21:36)
[2018-01-07] MEDS: PANTOPRAZOLE 40 MG TABLET PO SCH (06:11)
[2018-01-07] MEDS: LEVOTHYROXINE 25 MCG TAB PO SCH (06:11)
[2018-01-07 07:10] LABS: Anisocytosis Slight; Basophils % (A) 0 %; Eosinophils # (A) 0.1 k/uL (0-0.7); Eosinophils % (A) 1 %; HCT 46.6 % (34.0-46.0); Hypochromasia Marked; Lymphocytes % (A) 9 %; MCH 29.9 pg (25.0-35.0); MCV 99.4 fL (80.0-100.0); Macrocytosis Slight; Mean Platelet Volume 7.3; Monocytes # (A) 0.7 k/uL (0-1.0); Monocytes % (A) 6 %; Neutrophils # (A) 9.3 k/uL (1.3-7.7); Neutrophils % (A) 83 %; Platelet Count 191 k/uL (150-450); RBC 4.69 m/uL (3.80-5.40); RDW 17.5 % (11.5-15.5); WBC 11.2 k/uL (3.8-10.6)
[2018-01-07 07:26] LABS: INR 2.7 (<1.2)
[2018-01-07] MEDS: FORMOTEROL FUMARATE 20 MCG/2 ML NEBU INHALATION SCH ×2 (08:11→20:57)
[2018-01-07] MEDS: IPRATROPIUM-ALBUTEROL 3 ML NEB INHALATION SCH ×4 (08:11→20:57)
[2018-01-07] MEDS: BUDESONIDE 1 MG/2 ML NEBU INHALATION SCH ×2 (08:11→20:57)
[2018-01-07] MEDS: VANCOMYCIN 1,750 MG in SODIUM CHLORIDE 0.9% 500 ML IVPB SCH ×2 (09:02→23:19)
[2018-01-07] MEDS: LISINOPRIL 2.5 MG TAB PO SCH (09:03)
[2018-01-07] MEDS: predniSONE 20 MG TAB PO SCH (09:03)
[2018-01-07] MEDS: METOPROLOL TARTRATE 50 MG TAB PO SCH (09:03)
[2018-01-07 10:08] LABS: Albumin 3.1 g/dL (3.5-5.0); Calcium 8.6 mg/dL (8.4-10.2); Potassium 3.8 mmol/L (3.5-5.1); Total Bilirubin 1.9 mg/dL (0.2-1.3); Total Protein 5.8 g/dL (6.3-8.2)
[2018-01-07 11:27] LABS: Glucose,Whole Blood 130 mg/dL (75-99)
--- NOTE | 2018-01-07 11:28 | P.PN ---
Subjective Progress Note Date: 01/07/18 Principal diagnosis: Acute exacerbation of chronic systolic congestive heart failure This is a 67-year-old white female patient who was just discharged from the hospital after being hospitalized for right leg cellulitis, acute exacerbation of congestive heart failure with systolic dysfunction, and COPD exacerbation, A. fib RVR, urinary tract infection. Patient was treated with IV antibiotics, bronchodilators, steroids, she had improved, and was discharged home on 2017, and the recommendation was made for rehab placement however the patient refused and insisted on going home. Patient has history of CVA with right hemiplegia, and she requires extensive assistance with activities of daily living regular basis, she lives with her son who provides her with assistance. Patient apparently started having shortness of breath at home, she tried her nebulized bronchodilators with no improvement, and subsequently called EMS. Denied any fever or chills, denied any increased chest congestion. Denied any chest pain, night any lightheadedness, dizziness, nausea, vomiting or diarrhea. Patient was complaining of increased right lower leg discomfort. During previous admission wound cultures were positive for Klebsiella pneumonia Klebsiella oxytoca, and urine cultures positive for Klebsiella pneumonia and enterococcus faecium. Patient was complaining a course of oral Ceftin, and she was getting wound care with Silvadene and Heraclio wraps to bilateral lower extremities. Chest x-ray showed new mild pulmonary congestion, and some blunting of the right costophrenic angle, which was compared to the previous chest x-ray from 12/29/2017. EKG showed atrial fibrillation with a controlled rate of 97 BPM. Labs showed WBC of 11.5, hemoglobin of 14.5, INR is 2.0, electrolytes were within normal limits, BUN is 37 and creatinine 0.77. AST was 55, ALT 28, alkaline phosphatase was 127, with total bilirubin of 3.1, troponins were 0.036, 0.034, 0.043, proBNP was elevated at 4730. She has been afebrile, room air pulse ox is 94%, she is hemodynamically stable, she is sitting up in bed, in no acute distress, she states her shortness of breath has improved, she is currently on room air, lung sounds reveal a few crackles at bilateral bases, no significant wheezing. Lower extremities are Heraclio wrapped. Patient was placed on IV diuretics, nebulized bronchodilators, IV Kefzol, was admitted for further management. Patient was evaluated today on 01/07/2018, feeling better, continues to diurese, responding relatively well to diuretics. Less shortness of breath, no cough no wheezing, no fever, no chills, no hemoptysis. CBC is relatively unremarkable. INR is therapeutic at 2.7 basic metabolic profile is normal BUN is 33 creatinine 0.86. Blood cultures are negative so far. Still on vancomycin, and she is getting Silvadene cream treatment for her cellulitis. Objective - Vital Signs Vital signs: Vital Signs Temp 97.0 F L 01/07/18 08:00 Pulse 96 01/07/18 08:35 Resp 16 01/07/18 08:00 BP 122/76 01/07/18 08:00 Pulse Ox 93 L 01/07/18 08:00 Intake & Output 01/06/18 01/07/18 01/07/18 18:59 06:59 18:59 Intake Total 360 240 Output Total 400 Balance -40 240 Weight 107.5 kg Intake: Oral 360 240 Output: Urine 400 Other: Voiding Method Diaper Diaper Diaper # Voids 2 1 - Exam GENERAL EXAM: Alert, pleasant 67-year-old white female, with right-sided and right sided weakness, and significant expressive aphasia, slurring of speech comfortable in no apparent distress. HEAD: Normocephalic/atraumatic. EYES: Normal reaction of pupils, equal size. Conjunctiva pink, sclera white. NOSE: Clear with pink turbinates. THROAT: No erythema or exudates. NECK: No masses, no JVD, no thyroid enlargement, no adenopathy. CHEST: No chest wall deformity. Symmetrical expansion. LUNGS: Equal air entry with few bibasilar crackles, no wheeze, rhonchi or dullness. CVS: Regular rate and rhythm, normal S1 and S2, no gallops, no murmurs, no rubs ABDOMEN: Soft, nontender. No hepatosplenomegaly, normal bowel sounds, no guarding or rigidity. EXTREMITIES: No clubbing, no edema, no cyanosis, 2+ pulses and upper and lower extremities. Feet are wrapped with sterile dressings. MUSCULOSKELETAL: Muscle strength and tone normal. Patient has right lower extremity cellulitis, in the right leg is covered with the Heraclio wraps SPINE: No scoliosis or deformity SKIN: No rashes CENTRAL NERVOUS SYSTEM: Alert and oriented -3. No focal deficits, tone is normal in all 4 extremities. PSYCHIATRIC: Alert and oriented -3. Appropriate affect. Intact judgment and insight. - Labs CBC & Chem 7: 01/07/18 06:35 01/07/18 06:35 Labs: Abnormal Lab Results - Last 24 Hours (Table) 01/06/18 01/06/18 01/06/18 Range/Units 11:35 16:45 20:55 WBC (3.8-10.6) k/uL Hct (34.0-46.0) % MCHC (31.0-37.0) g/dL RDW (11.5-15.5) % Neutrophils # (1.3-7.7) k/uL PT (9.0-12.0) sec INR (<1.2) BUN (7-17) mg/dL Glucose (74-99) mg/dL POC Glucose (mg/dL) 122 H 109 H 187 H (75-99) mg/dL Total Bilirubin (0.2-1.3) mg/dL Alkaline Phosphatase (38-126) U/L Total Protein (6.3-8.2) g/dL Albumin (3.5-5.0) g/dL 01/07/18 01/07/18 01/07/18 Range/Units 06:02 06:35 06:35 WBC 11.2 H (3.8-10.6) k/uL Hct 46.6 H (34.0-46.0) % MCHC 30.0 L (31.0-37.0) g/dL RDW 17.5 H (11.5-15.5) % Neutrophils # 9.3 H (1.3-7.7) k/uL PT 24.0 H (9.0-12.0) sec INR 2.7 H (<1.2) BUN (7-17) mg/dL Glucose (74-99) mg/dL POC Glucose (mg/dL) 121 H (75-99) mg/dL Total Bilirubin (0.2-1.3) mg/dL Alkaline Phosphatase (38-126) U/L Total Protein (6.3-8.2) g/dL Albumin (3.5-5.0) g/dL 01/07/18 Range/Units 06:35 WBC (3.8-10.6) k/uL Hct (34.0-46.0) % MCHC (31.0-37.0) g/dL RDW (11.5-15.5) % Neutrophils # (1.3-7.7) k/uL PT (9.0-12.0) sec INR (<1.2) BUN 33 H (7-17) mg/dL Glucose 122 H (74-99) mg/dL POC Glucose (mg/dL) (75-99) mg/dL Total Bilirubin 1.9 H (0.2-1.3) mg/dL Alkaline Phosphatase 133 H (38-126) U/L Total Protein 5.8 L (6.3-8.2) g/dL Albumin 3.1 L (3.5-5.0) g/dL Microbiology - Last 24 Hours (Table) 01/05/18 18:11 Blood Culture - Preliminary Blood No Growth after 24 hours Assessment and Plan Assessment: Plan: #1. Acute exacerbation of chronic congestive heart failure with systolic dysfunction. Chest x-ray reviewed on this admission clearly showed mild congestive heart failure changes. #2. Elevated troponins #3. Increase in dyspnea related to the above #4. Cellulitis of right lower extremity, with previous wound cultures positive for Klebsiella species. Patient is being followed by infectious disease on consultation for her cellulitis. Antibiotics will be addressed accordingly by infectious disease. #5. Recent hospitalization for multiple medical problems including acute exacerbation of congestive heart failure, COPD, A. fib RVR, UTI, and right leg cellulitis #6. Chronic atrial fibrillation, and the rate is currently controlled, and patient is on anticoagulation in the form of Coumadin #7. History of CVA, with right sided hemiplegia, slurring of speech and expressive aphasia #8. Chronic obstructive pulmonary disease on home oxygen, currently stable #9. Hypertension, hyperlipidemia #10. History of nicotine dependence Recommendation: Continue present treatment plan including diuretics, bronchodilators, antibiotics, no need for IV steroids at this point. We'll continue to follow. Time with Patient: Less than 30
--- NOTE | 2018-01-07 12:29 | P.PN ---
Subjective Progress Note Date: 01/07/18 Mrs. Mills is a pleasant 67-year-old female past medical history significant for chronic persistent atrial fibrillation on long-term anticoagulation, history of CVA causing persistent right-sided flaccidity as well as slurring of speech and expressive aphasia, history of COPD on home oxygen, hypertension, dyslipidemia, GERD, anemia and chronic nicotine dependence. She follows with Dr. Bosch in the office. We've been asked to see her in consultation for heart failure. She was just discharged from the hospital on January 04. At that time she was discharged home although was recommended that she go to a rehab facility. She presented to the hospital yesterday evening stating that she was unable to tolerate home and requesting admission to ECF. She was seen in consultation by cardiology at that time. The diagnosis for shortness of breath was secondary to advanced COPD with no evidence of congestive cardiac failure. She was discharged home on Lasix 20 mg daily. She has bilateral lower extremity edema and weeping secondary to cellulitis. At the time of my exam she is seen resting comfortably in bed in no acute distress. She denies symptoms of chest pain, shortness of breath, dizziness or palpitations. She states she is unable to change the dressings on her legs. She has significant lower extremity edema, bilateral Heraclio wraps in place. She has been started on Lasix 40 mg IV 3 times a day since admission. 01/07/2018 Patient has been diuresing well on IV Lasix, overall she states she feels significantly better today. Arrangements are being made post discharge on this occasion for her to go to an ECF for a period of time. Blood pressure 122/70 with a heart rate of 90, 93% on room air. White blood cell count 11.2, hemoglobin 14, platelet count 191. INR today 2.7, sodium 140, potassium 3.8, BUN 33, creatinine 0.8. Objective - Vital Signs Vital signs: Vital Signs Temp 97.0 F L 01/07/18 08:00 Pulse 100 01/07/18 11:52 Resp 16 01/07/18 08:00 BP 122/76 01/07/18 08:00 Pulse Ox 93 L 01/07/18 08:00 Intake & Output 01/06/18 01/07/18 01/07/18 18:59 06:59 18:59 Intake Total 360 240 Output Total 400 Balance -40 240 Weight 107.5 kg Intake: Oral 360 240 Output: Urine 400 Other: Voiding Method Diaper Diaper Diaper # Voids 2 1 - Exam Gen. appearance the patient is not in respiratory distress even at rest. The patient has some facial asymmetry related to previous CVA. She is not using accessory muscles of breathing. Head exam was generally normal. There was no scleral icterus or corneal arcus. Mucous membranes were moist. Neck was supple and without jugular venous distension, thyromegaly, or carotid bruits. Carotids were easily palpable bilaterally. There was no adenopathy. Lungs sounds are diminished bilaterally. There is some bibasilar crackles. Scattered expiratory wheezes heard throughout the lung moraes bilaterally especially upon forceful respiratory maneuvers. Heart sounds are irregular, positive S1-S2 and there is a faint systolic ejection murmur grade 2/6 heard throughout the precordium. Abdominal exam revealed normal bowel sounds. The abdomen was soft, non-tender, and without masses, organomegaly, or appreciable enlargement of the abdominal aorta. Examination of the extremities revealed easily palpable radial, femoral and pedal pulses. There was no cyanosis, clubbing and the patient has +1-2 pitting edema in lower extremities bilaterally. There is also an ongoing cellulitis of the right lower extremity which is improved compared to previous evaluations. Neurologically the patient is awake. The patient is aphasic. She has chronic hemiplegia on the right side with right-sided spasticity and weakness. Facial asymmetry is present. There is expressive aphasia. - Labs CBC & Chem 7: 01/07/18 06:35 01/07/18 06:35 Labs: Abnormal Lab Results - Last 24 Hours (Table) 01/06/18 01/06/18 01/07/18 Range/Units 16:45 20:55 06:02 WBC (3.8-10.6) k/uL Hct (34.0-46.0) % MCHC (31.0-37.0) g/dL RDW (11.5-15.5) % Neutrophils # (1.3-7.7) k/uL PT (9.0-12.0) sec INR (<1.2) BUN (7-17) mg/dL Glucose (74-99) mg/dL POC Glucose (mg/dL) 109 H 187 H 121 H (75-99) mg/dL Total Bilirubin (0.2-1.3) mg/dL Alkaline Phosphatase (38-126) U/L Total Protein (6.3-8.2) g/dL Albumin (3.5-5.0) g/dL 01/07/18 01/07/18 01/07/18 Range/Units 06:35 06:35 06:35 WBC 11.2 H (3.8-10.6) k/uL Hct 46.6 H (34.0-46.0) % MCHC 30.0 L (31.0-37.0) g/dL RDW 17.5 H (11.5-15.5) % Neutrophils # 9.3 H (1.3-7.7) k/uL PT 24.0 H (9.0-12.0) sec INR 2.7 H (<1.2) BUN 33 H (7-17) mg/dL Glucose 122 H (74-99) mg/dL POC Glucose (mg/dL) (75-99) mg/dL Total Bilirubin 1.9 H (0.2-1.3) mg/dL Alkaline Phosphatase 133 H (38-126) U/L Total Protein 5.8 L (6.3-8.2) g/dL Albumin 3.1 L (3.5-5.0) g/dL 01/07/18 Range/Units 11:25 WBC (3.8-10.6) k/uL Hct (34.0-46.0) % MCHC (31.0-37.0) g/dL RDW (11.5-15.5) % Neutrophils # (1.3-7.7) k/uL PT (9.0-12.0) sec INR (<1.2) BUN (7-17) mg/dL Glucose (74-99) mg/dL POC Glucose (mg/dL) 130 H (75-99) mg/dL Total Bilirubin (0.2-1.3) mg/dL Alkaline Phosphatase (38-126) U/L Total Protein (6.3-8.2) g/dL Albumin (3.5-5.0) g/dL Microbiology - Last 24 Hours (Table) 01/05/18 18:11 Blood Culture - Preliminary Blood No Growth after 24 hours Assessment and Plan Plan: Assessment and plan #1. Acute on chronic exacerbation of chronic congestive heart failure with systolic dysfunction #2. Elevated troponins, not indicated of acute coronary syndrome, likely secondary to supply and demand mismatch #3. Increase in dyspnea related to the above #4. Cellulitis of right lower extremity, with previous wound cultures positive for Klebsiella species #5. Recent hospitalization for multiple medical problems including acute exacerbation of congestive heart failure, COPD, A. fib RVR, UTI, and right leg cellulitis #6. Chronic atrial fibrillation, and the rate is currently controlled, and patient is on anticoagulation in the form of Coumadin #7. History of CVA, with right sided hemiplegia, slurring of speech and expressive aphasia #8. Chronic obstructive pulmonary disease on home oxygen, currently stable #9. Hypertension #10 hyperlipidemia #11. History of nicotine dependence Plan Cardiology's perspective, we'll recommend to continue current dose of IV Lasix, check lytes BUN and creatinine as well as daily weights in the morning. Arrangements are being made for patient to go to an ECF after this hospitalization. DNP note has been reviewed, I agree with a documented findings and plan of care. Patient was seen and examined.
[2018-01-07 12:57] LABS: Hemoglobin A1C 7.3 % (4.0-6.0)
[2018-01-07 15:34] VITALS: BMI 43.3
[2018-01-07 16:24] LABS: Glucose,Whole Blood 219 mg/dL (75-99)
[2018-01-07] MEDS: SODIUM CHLORIDE 0.9% 1,000 ML IV SCH (18:12)
[2018-01-07] MEDS: WARFARIN 2 MG TAB PO SCH (18:16)
--- NOTE | 2018-01-07 19:57 | PN ---
PROGRESS NOTE DATE OF SERVICE: 01/07/2018. INTERVAL HISTORY: This 67-year-old woman who was admitted with shortness of breath possibly multifactorial, COPD acute exacerbation also had CHF also. The patient had multiple repeated admissions to the hospital. At this time PT/OT evaluated the patient for possible ECF rehab. No chest pain. No palpitations. No fever. PHYSICAL EXAM: Alert and oriented x3. Patient dysarthric. Pulse 102. Blood pressure 140/56, respirations 16, temperature 97.2, pulse ox 93% on room air. HEENT is conjunctivae normal. Oral mucosa moist. Neck is no jugular venous distention. No carotid bruit. No lymph node enlargement. Cardiovascular system: S1, S2. Respiratory: Breath sounds diminished in the bases. A few scattered rhonchi. No crackles. ABDOMEN: Soft, nontender. Legs: No edema. No swelling. Central nervous system: Diffusely weak. LABS: WBC 11.2, hemoglobin is 14, INR 2.7, and albumin is 3.1. ASSESSMENT: 1. Shortness of breath possible multifactorial with chronic obstructive pulmonary disease acute exacerbation as well as congestive heart failure exacerbation with acute on chronic systolic dysfunction, ejection fraction 40-45 percent. 2. Aortic stenosis and significant pulmonary hypertension. 3. Klebsiella grown from the lower extremity cellulitis and sepsis recently. 4. Gait dysfunction. 5. Chronic atrial fibrillation with rapid ventricular rate recently. 6. History of congestive heart failure. 7. Chronic obstructive pulmonary disease. 8. History of cerebrovascular accident, transient ischemic attack. 9. Gastroesophageal reflux disease. 10.Hypertension. 11.History of pneumonia. 12.Chronic kidney disease. 13.Urinary tract infection. 14.History of . 15.History of degenerative joint disease. 16.History of incarcerated umbilical hernia. 17.Obesity with body mass of 43.6. 18.FULL CODE. RECOMMENDATIONS AND DISCUSSION: In this 67-year-old woman who presented with multiple complex medical issues, we will monitor the patient closely, continue the current medications, management and symptomatic treatment. Otherwise at this time I recommend continue the antibiotics. Continue steroids. Continue the bronchodilators. PT/OT evaluation, possible ECF rehab and also executive secretary social welfare to work for guardianship as well. Further recommendations to follow. Prognosis guarded. MMODL / IJN: [id number] /
[2018-01-07] MEDS: METOPROLOL TARTRATE 25 MG TAB PO SCH (20:22)
[2018-01-07 21:13] LABS: Glucose,Whole Blood 259 mg/dL (75-99)
[2018-01-07] MEDS: INSULIN DETEMIR 100 UNIT/ML 10 ML VIAL SQ SCH (21:36)
--- NOTE | 2018-01-07 22:54 | PN ---
PROGRESS NOTE DATE OF SERVICE: 01/07/2018. REASON FOR FOLLOWUP: 1. Right lower extremity cellulitis. 2. Question of UTI. INTERVAL HISTORY: The patient is afebrile. She seems to be more awake, alert, breathing more comfortably. Denies significant chest pain, cough. No abdominal pain or any worsening pain in the right leg area. PHYSICAL EXAMINATION: Blood pressure 104/56 with a pulse of 92, temperature 97.3. She is 93% on room air. General description is a white elderly female, lying in bed in no distress. RESPIRATORY SYSTEM: Unlabored breathing, clear to auscultation anteriorly. HEART: S1, S2. Regular rate and rhythm. ABDOMEN: Soft, no tenderness. EXTREMITIES: Right knee is currently dressed up. No obvious drainage on the dressing. LABS: BUN of 33, creatinine 0.8, hemoglobin is 14, white count of 11.2. UA has been negative. DIAGNOSTIC IMPRESSION AND PLAN: Patient admitted to the hospital with right lower extremity cellulitis. The patient also recently had urinary tract infection with urine culture shows Enterococcus faecium, as well as Klebsiella. She did have a repeat UA, which is currently negative. Currently on vancomycin to cover for cellulitis that will be transitioned to oral antibiotic on discharge. Continue supportive care. Son was present at bedside and his questions answered. MMODL / IJN: [id number] /
[2018-01-08] MEDS: FUROSEMIDE 10 MG/ML 4 ML VIAL IV SCH ×2 (05:19→13:07)
[2018-01-08] MEDS: LEVOTHYROXINE 25 MCG TAB PO SCH (06:15)
[2018-01-08] MEDS: PANTOPRAZOLE 40 MG TABLET PO SCH (06:15)
[2018-01-08] MEDS: INSULIN ASPART 100 UNIT/ML 1 ML 10 ML VIAL SQ SCH ×2 (06:15→13:07)
[2018-01-08 06:17] LABS: Glucose,Whole Blood 101 mg/dL (75-99)
[2018-01-08 06:29] LABS: Anisocytosis Slight; Basophils % (A) 0 %; Eosinophils # (A) 0.1 k/uL (0-0.7); Eosinophils % (A) 0 %; HCT 42.9 % (34.0-46.0); HGB 13.6 gm/dL (11.4-16.0); Hypochromasia Marked; Lymphocytes # (A) 0.7 k/uL (1.0-4.8); Lymphocytes % (A) 6 %; MCHC 31.6 g/dL (31.0-37.0); Macrocytosis Slight; Mean Platelet Volume 7.8; Monocytes # (A) 0.7 k/uL (0-1.0); Monocytes % (A) 6 %; Neutrophils # (A) 10.3 k/uL (1.3-7.7); Neutrophils % (A) 87 %; Platelet Count 171 k/uL (150-450); RBC 4.38 m/uL (3.80-5.40); RDW 17.2 % (11.5-15.5); WBC 11.8 k/uL (3.8-10.6)
[2018-01-08 06:34] LABS: INR 3.1 (<1.2); Prothrombin Time 27.6 sec (9.0-12.0)
[2018-01-08 06:44] LABS: ALT 23 U/L (9-52); AST 29 U/L (14-36); Albumin 3.2 g/dL (3.5-5.0); Alkaline Phosphatase 120 U/L (38-126); Blood Urea Nitrogen 33 mg/dL (7-17); Calcium 8.6 mg/dL (8.4-10.2); Carbon Dioxide 32 mmol/L (22-30); Glucose 97 mg/dL (74-99); Total Bilirubin 1.7 mg/dL (0.2-1.3); Total Protein 5.9 g/dL (6.3-8.2)
[2018-01-08 06:53] LABS: Anion Gap 8 mmol/L; Chloride 99 mmol/L (98-107); Sodium 139 mmol/L (137-145)
[2018-01-08] MEDS: IPRATROPIUM-ALBUTEROL 3 ML NEB INHALATION SCH ×3 (08:37→15:24)
[2018-01-08] MEDS: BUDESONIDE 1 MG/2 ML NEBU INHALATION SCH (08:37)
[2018-01-08] MEDS: FORMOTEROL FUMARATE 20 MCG/2 ML NEBU INHALATION SCH (08:37)
[2018-01-08 09:22] VITALS: RESP 20
[2018-01-08] MEDS: LISINOPRIL 2.5 MG TAB PO SCH (10:23)
[2018-01-08] MEDS: METOPROLOL TARTRATE 50 MG TAB PO SCH (10:23)
[2018-01-08] MEDS: predniSONE 20 MG TAB PO SCH (10:24)
[2018-01-08 11:23] LABS: Glucose,Whole Blood 145 mg/dL (75-99)
--- NOTE | 2018-01-08 12:05 | P.PN ---
Subjective Progress Note Date: 01/08/18 Principal diagnosis: Acute exacerbation of chronic systolic congestive heart failure This is a 67-year-old white female patient who was just discharged from the hospital after being hospitalized for right leg cellulitis, acute exacerbation of congestive heart failure with systolic dysfunction, and COPD exacerbation, A. fib RVR, urinary tract infection. Patient was treated with IV antibiotics, bronchodilators, steroids, she had improved, and was discharged home on 2017, and the recommendation was made for rehab placement however the patient refused and insisted on going home. Patient has history of CVA with right hemiplegia, and she requires extensive assistance with activities of daily living regular basis, she lives with her son who provides her with assistance. Patient apparently started having shortness of breath at home, she tried her nebulized bronchodilators with no improvement, and subsequently called EMS. Denied any fever or chills, denied any increased chest congestion. Denied any chest pain, night any lightheadedness, dizziness, nausea, vomiting or diarrhea. Patient was complaining of increased right lower leg discomfort. During previous admission wound cultures were positive for Klebsiella pneumonia Klebsiella oxytoca, and urine cultures positive for Klebsiella pneumonia and enterococcus faecium. Patient was complaining a course of oral Ceftin, and she was getting wound care with Silvadene and Heraclio wraps to bilateral lower extremities. Chest x-ray showed new mild pulmonary congestion, and some blunting of the right costophrenic angle, which was compared to the previous chest x-ray from 12/29/2017. EKG showed atrial fibrillation with a controlled rate of 97 BPM. Labs showed WBC of 11.5, hemoglobin of 14.5, INR is 2.0, electrolytes were within normal limits, BUN is 37 and creatinine 0.77. AST was 55, ALT 28, alkaline phosphatase was 127, with total bilirubin of 3.1, troponins were 0.036, 0.034, 0.043, proBNP was elevated at 4730. She has been afebrile, room air pulse ox is 94%, she is hemodynamically stable, she is sitting up in bed, in no acute distress, she states her shortness of breath has improved, she is currently on room air, lung sounds reveal a few crackles at bilateral bases, no significant wheezing. Lower extremities are Heraclio wrapped. Patient was placed on IV diuretics, nebulized bronchodilators, IV Kefzol, was admitted for further management. Patient was evaluated today on 01/07/2018, feeling better, continues to diurese, responding relatively well to diuretics. Less shortness of breath, no cough no wheezing, no fever, no chills, no hemoptysis. CBC is relatively unremarkable. INR is therapeutic at 2.7 basic metabolic profile is normal BUN is 33 creatinine 0.86. Blood cultures are negative so far. Still on vancomycin, and she is getting Silvadene cream treatment for her cellulitis. The patient is seen again today 01/08/2018 in follow-up on the selective care unit. She is currently awake and alert in no acute distress. She is resting quite comfortably in bed. She is currently maintaining good O2 saturations in the 90s on room air. She's been afebrile. Hemodynamically stable. Blood culture reveals no growth. White count 11.8. Hemoglobin 13.6. INR 3.1. Creatinine 0.73. She remains on DuoNeb inhalations, Pulmicort and Perforomist inhalations, prednisone and IV diuretics. Objective - Vital Signs Vital signs: Vital Signs Temp 97.1 F L 01/08/18 09:20 Pulse 85 01/08/18 11:54 Resp 20 01/08/18 09:20 BP 101/59 01/08/18 09:20 Pulse Ox 96 01/08/18 07:43 Intake & Output 01/07/18 01/08/18 01/08/18 18:59 06:59 18:59 Intake Total 1220 240 Balance 1220 240 Weight 107.5 kg 109.5 kg Intake: Intake, IV Titration 500 Amount Vancomycin 1,750 mg In 500 Sodium Chloride 0.9% 500 ml @ 167 mls/hr IVPB Q[facility] Rx#:[id number] Oral 720 240 Other: Voiding Method Diaper Diaper Diaper # Voids 1 1 # Bowel Movements 0 - Exam GENERAL EXAM: Alert, pleasant 67-year-old white female, with right-sided and right sided weakness, and significant expressive aphasia, slurring of speech comfortable in no apparent distress. HEAD: Normocephalic/atraumatic. EYES: Normal reaction of pupils, equal size. Conjunctiva pink, sclera white. NOSE: Clear with pink turbinates. THROAT: No erythema or exudates. NECK: No masses, no JVD, no thyroid enlargement, no adenopathy. CHEST: No chest wall deformity. Symmetrical expansion. LUNGS: Equal air entry with few bibasilar crackles, no wheeze, rhonchi or dullness. CVS: Regular rate and rhythm, normal S1 and S2, no gallops, no murmurs, no rubs ABDOMEN: Soft, nontender. No hepatosplenomegaly, normal bowel sounds, no guarding or rigidity. EXTREMITIES: No clubbing, no edema, no cyanosis, 2+ pulses and upper and lower extremities. Feet are wrapped with sterile dressings. MUSCULOSKELETAL: Muscle strength and tone normal. Patient has right lower extremity cellulitis, in the right leg is covered with the Heraclio wraps SPINE: No scoliosis or deformity SKIN: No rashes CENTRAL NERVOUS SYSTEM: Alert and oriented -3. No focal deficits, tone is normal in all 4 extremities. PSYCHIATRIC: Alert and oriented -3. Appropriate affect. Intact judgment and insight. - Labs CBC & Chem 7: 01/08/18 05:44 01/08/18 05:44 Labs: Abnormal Lab Results - Last 24 Hours (Table) 01/05/18 01/07/18 01/07/18 Range/Units 18:11 16:22 21:01 WBC (3.8-10.6) k/uL RDW (11.5-15.5) % Neutrophils # (1.3-7.7) k/uL Lymphocytes # (1.0-4.8) k/uL PT (9.0-12.0) sec INR (<1.2) Carbon Dioxide (22-30) mmol/L BUN (7-17) mg/dL POC Glucose (mg/dL) 219 H 259 H (75-99) mg/dL Hemoglobin A1c 7.3 H (4.0-6.0) % Total Bilirubin (0.2-1.3) mg/dL Total Protein (6.3-8.2) g/dL Albumin (3.5-5.0) g/dL 01/08/18 01/08/18 01/08/18 Range/Units 05:44 05:44 05:44 WBC 11.8 H (3.8-10.6) k/uL RDW 17.2 H (11.5-15.5) % Neutrophils # 10.3 H (1.3-7.7) k/uL Lymphocytes # 0.7 L (1.0-4.8) k/uL PT 27.6 H (9.0-12.0) sec INR 3.1 H (<1.2) Carbon Dioxide 32 H (22-30) mmol/L BUN 33 H (7-17) mg/dL POC Glucose (mg/dL) (75-99) mg/dL Hemoglobin A1c (4.0-6.0) % Total Bilirubin 1.7 H (0.2-1.3) mg/dL Total Protein 5.9 L (6.3-8.2) g/dL Albumin 3.2 L (3.5-5.0) g/dL 01/08/18 01/08/18 Range/Units 06:15 11:21 WBC (3.8-10.6) k/uL RDW (11.5-15.5) % Neutrophils # (1.3-7.7) k/uL Lymphocytes # (1.0-4.8) k/uL PT (9.0-12.0) sec INR (<1.2) Carbon Dioxide (22-30) mmol/L BUN (7-17) mg/dL POC Glucose (mg/dL) 101 H 145 H (75-99) mg/dL Hemoglobin A1c (4.0-6.0) % Total Bilirubin (0.2-1.3) mg/dL Total Protein (6.3-8.2) g/dL Albumin (3.5-5.0) g/dL Microbiology - Last 24 Hours (Table) 01/05/18 18:11 Blood Culture - Preliminary Blood No Growth after 48 hours Assessment and Plan Assessment: #1. Acute exacerbation of chronic congestive heart failure with systolic dysfunction. Chest x-ray reviewed on this admission clearly showed mild congestive heart failure changes. #2. Elevated troponins #3. Increase in dyspnea related to the above #4. Cellulitis of right lower extremity, with previous wound cultures positive for Klebsiella species. Patient is being followed by infectious disease on consultation for her cellulitis. Antibiotics will be addressed accordingly by infectious disease. #5. Recent hospitalization for multiple medical problems including acute exacerbation of congestive heart failure, COPD, A. fib RVR, UTI, and right leg cellulitis #6. Chronic atrial fibrillation, and the rate is currently controlled, and patient is on anticoagulation in the form of Coumadin #7. History of CVA, with right sided hemiplegia, slurring of speech and expressive aphasia #8. Chronic obstructive pulmonary disease on home oxygen, currently stable #9. Hypertension, hyperlipidemia #10. History of nicotine dependence Recommendation: The patient was seen and evaluated by Dr. Delcid. She is stable from the pulmonary standpoint. The plan is to discharge back to [facility] on the [place]. Continue prednisone taper. Complete her course of antibiotics. Continue bronchodilators. I, the cosigning physician, performed a history & physical examination of the patient. Lungs sounds with faint crackles in the posterior bases. Maintaining good O2 saturations in the 90s on room air. I discussed the assessment and plan of care with my nurse practitioner, Vicki Guerrero. I attest to the above note as dictated by her.
[2018-01-08 12:10] VITALS: BP 96/68; PULSE 96; TEMP 96.3
--- NOTE | 2018-01-08 14:19 | P.PN ---
Subjective Progress Note Date: 01/08/18 Mrs. Mills is a pleasant 67-year-old female past medical history significant for chronic persistent atrial fibrillation on long-term anticoagulation, history of CVA causing persistent right-sided flaccidity as well as slurring of speech and expressive aphasia, history of COPD on home oxygen, hypertension, dyslipidemia, GERD, anemia and chronic nicotine dependence. She follows with Dr. Bosch in the office. We've been asked to see her in consultation for heart failure. She was just discharged from the hospital on January 04. At that time she was discharged home although was recommended that she go to a rehab facility. She presented to the hospital yesterday evening stating that she was unable to tolerate home and requesting admission to ECF. She was seen in consultation by cardiology at that time. The diagnosis for shortness of breath was secondary to advanced COPD with no evidence of congestive cardiac failure. She was discharged home on Lasix 20 mg daily. She has bilateral lower extremity edema and weeping secondary to cellulitis. At the time of my exam she is seen resting comfortably in bed in no acute distress. She denies symptoms of chest pain, shortness of breath, dizziness or palpitations. She states she is unable to change the dressings on her legs. She has significant lower extremity edema, bilateral Heraclio wraps in place. She has been started on Lasix 40 mg IV 3 times a day since admission. 01/07/2018 Patient has been diuresing well on IV Lasix, overall she states she feels significantly better today. Arrangements are being made post discharge on this occasion for her to go to an ECF for a period of time. Blood pressure 122/70 with a heart rate of 90, 93% on room air. White blood cell count 11.2, hemoglobin 14, platelet count 191. INR today 2.7, sodium 140, potassium 3.8, BUN 33, creatinine 0.8. 01/08/2018 Patient seen and examined this morning, feeling well, eager to be discharged. Blood pressure 100/60, heart rate in the 70s, white blood cell count 11.8, hemoglobin 13.6, platelet count 171. INR 3.1. Sodium 139, potassium 4.0, BUN 33, creatinine 0.7. We will discontinue the IV Lasix today and start the patient on Lasix 40 mg one tablet by mouth twice a day. Check lytes BUN and creatinine in 3 days and every weekly. Objective - Vital Signs Vital signs: Vital Signs Temp 96.3 F L 01/08/18 12:00 Pulse 96 01/08/18 12:00 Resp 20 01/08/18 09:20 BP 96/68 01/08/18 12:00 Pulse Ox 96 01/08/18 07:43 Intake & Output 01/07/18 01/08/18 01/08/18 18:59 06:59 18:59 Intake Total 1220 240 Balance 1220 240 Weight 107.5 kg 109.5 kg Intake: Intake, IV Titration 500 Amount Vancomycin 1,750 mg In 500 Sodium Chloride 0.9% 500 ml @ 167 mls/hr IVPB Q[facility]H [facility] Rx#:[id number] Oral 720 240 Other: Voiding Method Diaper Diaper Diaper # Voids 1 1 # Bowel Movements 0 - Exam Gen. appearance the patient is not in respiratory distress even at rest. The patient has some facial asymmetry related to previous CVA. She is not using accessory muscles of breathing. Head exam was generally normal. There was no scleral icterus or corneal arcus. Mucous membranes were moist. Neck was supple and without jugular venous distension, thyromegaly, or carotid bruits. Carotids were easily palpable bilaterally. There was no adenopathy. Lungs sounds are diminished bilaterally. There is some bibasilar crackles. Scattered expiratory wheezes heard throughout the lung moraes bilaterally especially upon forceful respiratory maneuvers. Heart sounds are irregular, positive S1-S2 and there is a faint systolic ejection murmur grade 2/6 heard throughout the precordium. Abdominal exam revealed normal bowel sounds. The abdomen was soft, non-tender, and without masses, organomegaly, or appreciable enlargement of the abdominal aorta. Examination of the extremities revealed easily palpable radial, femoral and pedal pulses. There was no cyanosis, clubbing and the patient has +1-2 pitting edema in lower extremities bilaterally. There is also an ongoing cellulitis of the right lower extremity which is improved compared to previous evaluations. Neurologically the patient is awake. The patient is aphasic. She has chronic hemiplegia on the right side with right-sided spasticity and weakness. Facial asymmetry is present. There is expressive aphasia. - Labs CBC & Chem 7: 01/08/18 05:44 01/08/18 05:44 Labs: Abnormal Lab Results - Last 24 Hours (Table) 01/07/18 01/07/18 01/08/18 Range/Units 16:22 21:01 05:44 WBC 11.8 H (3.8-10.6) k/uL RDW 17.2 H (11.5-15.5) % Neutrophils # 10.3 H (1.3-7.7) k/uL Lymphocytes # 0.7 L (1.0-4.8) k/uL PT (9.0-12.0) sec INR (<1.2) Carbon Dioxide (22-30) mmol/L BUN (7-17) mg/dL POC Glucose (mg/dL) 219 H 259 H (75-99) mg/dL Total Bilirubin (0.2-1.3) mg/dL Total Protein (6.3-8.2) g/dL Albumin (3.5-5.0) g/dL 01/08/18 01/08/18 01/08/18 Range/Units 05:44 05:44 06:15 WBC (3.8-10.6) k/uL RDW (11.5-15.5) % Neutrophils # (1.3-7.7) k/uL Lymphocytes # (1.0-4.8) k/uL PT 27.6 H (9.0-12.0) sec INR 3.1 H (<1.2) Carbon Dioxide 32 H (22-30) mmol/L BUN 33 H (7-17) mg/dL POC Glucose (mg/dL) 101 H (75-99) mg/dL Total Bilirubin 1.7 H (0.2-1.3) mg/dL Total Protein 5.9 L (6.3-8.2) g/dL Albumin 3.2 L (3.5-5.0) g/dL 01/08/18 Range/Units 11:21 WBC (3.8-10.6) k/uL RDW (11.5-15.5) % Neutrophils # (1.3-7.7) k/uL Lymphocytes # (1.0-4.8) k/uL PT (9.0-12.0) sec INR (<1.2) Carbon Dioxide (22-30) mmol/L BUN (7-17) mg/dL POC Glucose (mg/dL) 145 H (75-99) mg/dL Total Bilirubin (0.2-1.3) mg/dL Total Protein (6.3-8.2) g/dL Albumin (3.5-5.0) g/dL Microbiology - Last 24 Hours (Table) 01/05/18 18:11 Blood Culture - Preliminary Blood No Growth after 48 hours Assessment and Plan Plan: Assessment and plan #1. Acute on chronic exacerbation of chronic congestive heart failure with systolic dysfunction #2. Elevated troponins, not indicated of acute coronary syndrome, likely secondary to supply and demand mismatch #3. Increase in dyspnea related to the above #4. Cellulitis of right lower extremity, with previous wound cultures positive for Klebsiella species #5. Recent hospitalization for multiple medical problems including acute exacerbation of congestive heart failure, COPD, A. fib RVR, UTI, and right leg cellulitis #6. Chronic atrial fibrillation, and the rate is currently controlled, and patient is on anticoagulation in the form of Coumadin #7. History of CVA, with right sided hemiplegia, slurring of speech and expressive aphasia #8. Chronic obstructive pulmonary disease on home oxygen, currently stable #9. Hypertension #10 hyperlipidemia #11. History of nicotine dependence Plan Cardiology's perspective, we'll discontinue the IV Lasix and start the patient on Lasix 40 mg one tablet by mouth twice a day. Check lytes BUN and creatinine in 3 days and every weekly. Follow-up appointment in the office post discharge. DNP note has been reviewed, I agree with a documented findings and plan of care. Patient was seen and examined.
--- NOTE | 2018-01-08 15:03 | P.DS ---
Providers Date of admission: 01/05/18 19:52 Expected date of discharge: 01/08/18 Attending physician: Rhona Verdugo Consults: 01/05/18 19:57 Consult Physician Stat Consulting Provider: Coleman Troy Consult Reason/Comments: CHF, COPD, pleural effusion Do you want consulting provider notified?: Yes, Notify in am Consult Physician Stat Consulting Provider: Ange Zambrano Consult Reason/Comments: CHF, Pleural Effusion, Troponin Elevated Do you want consulting provider notified?: Yes Consult Physician Stat Consulting Provider: Suly Quinones Consult Reason/Comments: R leg cellulitis Do you want consulting provider notified?: Yes, Notify in am Primary care physician: Stated None Hospital Course: Discharge diagnosis Shortness of breath is multifactorial with COPD exacerbation as well as CHF exacerbation Acute COPD exacerbation Acute on chronic CHF with systolic dysfunction ejection fraction 40-45% Severe aortic stenosis and significant pulmonary hypertension Klebsiella and wound cultures from lower extremities cellulitis with possible sepsis Gait dysfunction Chronic persistent atrial fibrillation on long-term anticoagulation 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 Patient refuses to go to rehab during previous admission. Patient is being treated for acute CHF exacerbation and COPD exacerbation as well as right lower extremities cellulitis. 01/08/2018 Patient denied any complaints of chest pain or worsening shortness of breath. Patient continued to be on Lasix 60 mg every 8 hourly. Changed to Lasix 40 mg twice a day. Cardiology has seen the patient. Patient is also on antibiotics for right lower extremities cellulitis with vancomycin. Changed to doxycycline as per ID. No fever no chills. No nausea vomiting or abdominal pain. No diarrhea. No other acute overnight issues. Patient is saturating well on room air. Patient will be continued on wound care of the lower extremity. Patient is being discharged to rehab.. INR is 3.1 today. Patient is taking warfarin 4 mg daily. Recommend Warfarin to be on hold for today on 01/08/2018. Physical examination GENERAL EXAM: Alert, pleasant 67-year-old white female, with right-sided and right sided weakness, and significant expressive aphasia, slurring of speech comfortable in no apparent distress. HEAD: Normocephalic/atraumatic. EYES: Normal reaction of pupils, equal size. Conjunctiva pink, sclera white. NOSE: Clear with pink turbinates. THROAT: No erythema or exudates. NECK: No masses, no JVD, no thyroid enlargement, no adenopathy. CHEST: No chest wall deformity. Symmetrical expansion. LUNGS: Equal air entry with few bibasilar crackles, no wheeze, rhonchi or dullness. CVS: Regular rate and rhythm, normal S1 and S2, no gallops, no murmurs, no rubs ABDOMEN: Soft, nontender. No hepatosplenomegaly, normal bowel sounds, no guarding or rigidity. EXTREMITIES: No clubbing, no edema, no cyanosis, 2+ pulses and upper and lower extremities. Feet are wrapped with sterile dressings. MUSCULOSKELETAL: Muscle strength and tone normal. Patient has right lower extremity cellulitis, in the right leg is covered with the Heraclio wraps SPINE: No scoliosis or deformity SKIN: No rashes CENTRAL NERVOUS SYSTEM: Alert and oriented -3. No focal deficits, tone is normal in all 4 extremities. PSYCHIATRIC: Alert and oriented -3. Appropriate affect. Intact judgment and insight. Vital Signs 01/08/18 01/08/18 01/08/18 07:43 08:37 08:48 Temperature 97.2 F L Pulse Rate 110 H 110 H Pulse Rate [ Left Pulse Oximetery] Pulse Rate [ 103 H Pulse Oximetery ] Respiratory 16 Rate Blood Pressure 90/62 [Left Arm] O2 Sat by Pulse 96 Oximetry 01/08/18 01/08/18 01/08/18 08:58 09:20 11:43 Temperature 97.1 F L Pulse Rate 112 H 83 Pulse Rate [ 78 Left Pulse Oximetery] Pulse Rate [ 96 Pulse Oximetery ] Respiratory 20 Rate Blood Pressure 101/59 [Left Arm] O2 Sat by Pulse Oximetry 01/08/18 01/08/18 11:54 12:00 Temperature 96.3 F L Pulse Rate 85 Pulse Rate [ 96 Left Pulse Oximetery] Pulse Rate [ Pulse Oximetery ] Respiratory Rate Blood Pressure 96/68 [Left Arm] O2 Sat by Pulse Oximetry Total time taken greater than 35 minutes including 18 minutes for counseling and coordination of care. Patient Condition at Discharge: Stable Plan - Discharge Summary Discharge Rx Participant: No New Discharge Prescriptions: New Doxycycline Hyclate 100 mg PO Q12H #14 tab Furosemide [Lasix] 40 mg PO BID@0900,1600 #60 tab Lisinopril [Zestril] 2.5 mg PO DAILY #30 tab predniSONE See Taper PO DAILY #17 tab Continue Tiotropium [place] [Spiriva] 1 cap INHALATION RT-DAILY Metoprolol Tartrate [Lopressor] 50 mg PO DAILY Levothyroxine Sodium [Synthroid] 25 mcg PO DAILY Acetaminophen Tab [Tylenol] 650 mg PO Q6HR PRN tab PRN Reason: Mild Pain Or Fever > 100.5 Budesonide-Formot 160-4.5 Mcg [Symbicort 160-4.5 Mcg Inhaler] 2 puff INHALATION RT-BID #1 puff Metoprolol Tartrate [Lopressor] 25 mg PO HS #30 tab Pantoprazole [Protonix] 40 mg PO AC-BRKFST #30 tablet. Insulin Detemir [Levemir] 20 unit SQ HS #1 syr Formoterol Fumarate [Perforomist] 20 mcg INHALATION RT-BID #60 nebu Ipratropium-Albuterol Nebulize [Duoneb 0.5 mg-3 mg/3 ml Soln] 3 ml INHALATION RT-QID #120 ampul.neb Budesonide [Pulmicort] 1 mg INHALATION RT-BID #60 nebu Changed Warfarin Sodium [Coumadin] 2 mg PO DAILY #7 tablet Discontinued Furosemide [Lasix] 20 mg PO DAILY SILVER sulfADIAZINE Cream [Silvadene 1% Cream] 1 applic TOPICAL BID applic Discharge Medication List Tiotropium [place] [Spiriva] 1 cap INHALATION RT-DAILY 05/01/17 [History] Metoprolol Tartrate [Lopressor] 50 mg PO DAILY 11/02/17 [History] Levothyroxine Sodium [Synthroid] 25 mcg PO DAILY 12/18/17 [History] Acetaminophen Tab [Tylenol] 650 mg PO Q6HR PRN tab 12/23/17 [Rx] Budesonide-Formot 160-4.5 Mcg [Symbicort 160-4.5 Mcg Inhaler] 2 puff INHALATION RT-BID #1 puff 12/23/17 [Rx] Metoprolol Tartrate [Lopressor] 25 mg PO HS #30 tab 12/23/17 [Rx] Budesonide [Pulmicort] 1 mg INHALATION RT-BID #60 nebu 01/03/18 [Rx] Formoterol Fumarate [Perforomist] 20 mcg INHALATION RT-BID #60 nebu 01/03/18 [Rx ] Insulin Detemir [Levemir] 20 unit SQ HS #1 syr 01/03/18 [Rx] Ipratropium-Albuterol Nebulize [Duoneb 0.5 mg-3 mg/3 ml Soln] 3 ml INHALATION RT -QID #120 ampul.neb 01/03/18 [Rx] Pantoprazole [Protonix] 40 mg PO AC-BRKFST #30 tablet. 01/03/18 [Rx] Doxycycline Hyclate 100 mg PO Q12H #14 tab 01/08/18 [Rx] Furosemide [Lasix] 40 mg PO BID@0900,1600 #60 tab 01/08/18 [Rx] Lisinopril [Zestril] 2.5 mg PO DAILY #30 tab 01/08/18 [Rx] Warfarin Sodium [Coumadin] 2 mg PO DAILY #7 tablet 01/08/18 [Rx] predniSONE See Taper PO DAILY #17 tab 01/08/18 [Rx] Follow up Appointment(s)/Referral(s): [facility] [Provider Group] - 1 Week Du Lancaster MD [STAFF PHYSICIAN] - As Needed (Please follow up with primary provider once you are discharged from rehab.) Suly Quinones MD [STAFF PHYSICIAN] - 1 Week Coleman Troy MD [STAFF PHYSICIAN] - 1 Week Patient Instructions/Handouts: Heart Failure (DC), Pulmonary Edema (DC), Urinary Tract Infection in Women (DC), Cellulitis (DC) Activity/Diet/Wound Care/Special Instructions: activity as tolerated heart healthy, low sodium healthy with consistent carb diet Wound care adjusted to silvadene cream BID to bilateral lower legs with kerlex and heraclio wraps cbc,bmp in 3 days Daily PT/INR INR is 3.1 today. Patient is taking warfarin 4 mg daily. Recommend Warfarin to be on hold for today on 01/08/2018. Discharge Disposition: TRANSFER TO SNF/ECF
[2018-01-08] MEDS ORDERED: FUROSEMIDE 40 MG TAB PO SCH (16:00)
--- NOTE | 2018-01-08 16:00 | CDI ---
Last Revision, March 2017 Documentation Clarification Form Date: 01/08/2018 3:51:57 PM From: Mitzi MukherjeeChatterjeeARMANI, CCDS Admit Date: 01/05/2018 7:52:00 PM Patient Name: Azul Mills Visit Number: [id number] Discharge Date: ATTENTION: The Clinical Documentation Specialists (CDI) and [facility] Coding Staff appreciate your assistance in clarifying documentation. Please respond to the clarification below the line at the bottom and electronically sign. The CDI & [facility] Coding staff will review the response and follow-up if needed. Please note: Queries are made part of the Legal Health Record. If you have any questions, please contact the author of this message via ITS. Dr. Christopher CATHERINE MD: Per the History & Physical and the 01/07 progress note, chronic kidney disease is documented without a stage. History/Risk Factors: Hypertension, CHF combined, COPD, Obesity, Chronic Atrial fibrillation & aortic stenosis with Mitral & Tricuspid regurgitation. Clinical Indicators: Patient admitted with acute exacerbation of combined CHF & acute exacerbation of COPD & RLE cellulitis. Admission BUN/CR/GFR: 37 / (0.77) / 80 Current BUN/CR/GFR: 33 / (0.73) / 86 Patients Baseline: BUN/CR/GFR: unknown or not documented. Treatment: IV fl 100, IV fl bolus, Albuterol INH, IV Lasix, IV Kefzol, IV Vanco. Patients home medications include: Coumadin, Spiriva INH, Lopressor, Synthroid , Albuterol duoneb, Levemir, Symbicort INH, Pulmicort INH, Prednisone, Zestril, Lasix. In order to capture the severity of condition, please clarify if the condition signifies: CKD Stage 1 (GFR > 90) CKD Stage 2 (GFR 60-89) CKD Stage 3 (GFR 30-59) Other, please specify Unable to determine CKD Stage 2 (GFR 60-89) MTDD
[2018-01-09] MEDS ORDERED: VANCOMYCIN TROUGH DUE 1 EACH MISC MISCELLANE ONE (07:00)
== END 2018-01-08 16:11 | DRG 291 ==
LOC: EC 16:50 → 6SEL 19:52
PROVIDERS: ADMIT Internal Medicine; ATTEND Internal Medicine
DX: I13.0 Hypertensive heart and chronic kidney disease with heart failure and stage 1 through stage 4 chronic kidney disease, or unspecified chronic kidney disease (principal); I50.43 Acute on chronic combined systolic (congestive) and diastolic (congestive) heart failure; E44.1 Mild protein-calorie malnutrition; I24.9 Acute ischemic heart disease, unspecified; I48.1 Persistent atrial fibrillation; I69.351 Hemiplegia and hemiparesis following cerebral infarction affecting right dominant side; J44.1 Chronic obstructive pulmonary disease with (acute) exacerbation; L03.115 Cellulitis of right lower limb; L03.116 Cellulitis of left lower limb; Z68.41 Body mass index [BMI] 40.0-44.9, adult; E66.01 Morbid (severe) obesity due to excess calories; E78.5 Hyperlipidemia, unspecified; Z87.891 Personal history of nicotine dependence; I08.3 Combined rheumatic disorders of mitral, aortic and tricuspid valves; I27.20 Pulmonary hypertension, unspecified; I48.2 Chronic atrial fibrillation; I69.320 Aphasia following cerebral infarction; Z87.01 Personal history of pneumonia (recurrent); K21.9 Gastro-esophageal reflux disease without esophagitis; M19.90 Unspecified osteoarthritis, unspecified site; N18.2 Chronic kidney disease, stage 2 (mild); Z87.440 Personal history of urinary (tract) infections; R47.02 Dysphasia; I69.328 Other speech and language deficits following cerebral infarction; Z79.01 Long term (current) use of anticoagulants; Z79.4 Long term (current) use of insulin; Z79.51 Long term (current) use of inhaled steroids; Z80.3 Family history of malignant neoplasm of breast; Z99.81 Dependence on supplemental oxygen; Z79.890 Hormone replacement therapy; R26.9 Unspecified abnormalities of gait and mobility
CPT/HCPCS: 36415; 71046; 80053; 81003; 82550; 82553; 83036; 83735; 83880; 84484; 85025; 85610; 85730; 87040; 93005; 94640; 96374; 96375; 99285

== ENCOUNTER 2018-01-26 18:20 | Inpatient (IN) | payer MEDICARE ==
[2018-01-26] MEDS ORDERED: DEXTROSE 50%-WATER 50 ML SYRINGE IVP STA ×3 (18:31→20:04)
--- NOTE | 2018-01-26 18:35 | ED ---
General Adult HPI - General Stated complaint: Altered Mental Status Time Seen by Provider: 01/26/18 18:25 Source: patient, EMS, RN notes reviewed Mode of arrival: EMS Limitations: altered mental status, physical limitation - History of Present Illness Initial comments: Patient is a pleasant 67-year-old female presenting to the emergency Department with decreased mental status. Onset was today. Patient's blood sugar has been running low at home. Patient did not take insulin today however did take her metformin. Patient does have history of stroke and has limited verbal capability. Majority of history is taken from EMS. Patient does appear to be answering positive and negatives appropriately. Patient is able to sign some answers using her fingers in the air to make out letters or numbers. - Related Data Home Medications Medication Instructions Recorded Confirmed Tiotropium Lane [Spiriva] 1 cap INHALATION RT-DAILY 05/01/17 01/26/18 Metoprolol Tartrate [Lopressor] 50 mg PO DAILY 11/02/17 01/26/18 Levothyroxine Sodium [Synthroid] 25 mcg PO DAILY 12/18/17 01/26/18 Previous Rx's Medication Instructions Recorded Acetaminophen Tab [Tylenol] 650 mg PO Q6HR PRN tab 12/23/17 Budesonide-Formot 160-4.5 Mcg 2 puff INHALATION RT-BID #1 puff 12/23/17 [Symbicort 160-4.5 Mcg Inhaler] Metoprolol Tartrate [Lopressor] 25 mg PO HS #30 tab 12/23/17 Budesonide [Pulmicort] 1 mg INHALATION RT-BID #60 nebu 01/03/18 Formoterol Fumarate [Perforomist] 20 mcg INHALATION RT-BID #60 nebu 01/03/18 Insulin Detemir [Levemir] 20 unit SQ HS #1 syr 01/03/18 Ipratropium-Albuterol Nebulize 3 ml INHALATION RT-QID #120 01/03/18 [Duoneb 0.5 mg-3 mg/3 ml Soln] ampul.neb Pantoprazole [Protonix] 40 mg PO AC-BRKFST #30 tablet. 01/03/18 Doxycycline Hyclate 100 mg PO Q12H #14 tab 01/08/18 Furosemide [Lasix] 40 mg PO BID@0900,1600 #60 tab 01/08/18 Lisinopril [Zestril] 2.5 mg PO DAILY #30 tab 01/08/18 Warfarin Sodium [Coumadin] 2 mg PO DAILY #7 tablet 01/08/18 predniSONE See Taper PO DAILY #17 tab 01/08/18 Allergies Allergy/AdvReac Type Severity Reaction Status Date / Time No Known Allergies Allergy Verified 01/26/18 20:00 Review of Systems ROS Statement: Those systems with pertinent positive or pertinent negative responses have been documented in the HPI. ROS Other: All systems not noted in ROS Statement are negative. Constitutional: Denies: fever Eyes: Denies: eye pain ENT: Denies: ear pain Respiratory: Denies: cough Cardiovascular: Denies: chest pain Endocrine: Reports: fatigue Gastrointestinal: Denies: abdominal pain Genitourinary: Denies: dysuria Musculoskeletal: Denies: back pain Skin: Denies: rash Neurological: Denies: headache Past Medical History Past Medical History: Atrial Fibrillation, Chest Pain / Angina, Heart Failure, COPD, CVA/TIA, GERD/Reflux, Hyperlipidemia, Hypertension, Osteoarthritis (OA), Pneumonia, Renal Disease Additional Past Medical History / Comment(s): 2002 CVA with R sided weakness arm /leg/contracted R hand and dysphasia, Afib with RVR, cardiac valve disease, DJD , occasional back pain, bronchitis, UTIs, kidney infections, anemia, head injury. 2018 CVA with right side flaccid and dysphagia, recent hospitalization for COPD exacerbation in addition to a right lower lobectomy cellulitis. Recent treatment for enterococcus patient septicemia. History of Any Multi-Drug Resistant Organisms: None Reported Past Surgical History: Section, Hernia Repair, Orthopedic Surgery, Tonsillectomy Additional Past Surgical History / Comment(s): Incarcerated umbilical hernia repair/omentum resection, X2, L tibial IM nailing, teeth extractions. Past Anesthesia/Blood Transfusion Reactions: No Reported Reaction Past Psychological History: No Psychological Hx Reported Additional Psychological History / Comment(s): Lives in a senior apartment. Her daughter does help. She is a reformed smoker. No experience. No animals in the home Smoking Status: Former smoker Past Alcohol Use History: None Reported Additional Past Alcohol Use History / Comment(s): has smoked off and on since age 14 Past Drug Use History: None Reported - Past Family History Father Family Medical History: No Reported History Additional Family Medical History / Comment(s): FATHER WAS HEALTHY AND LIVED TO BE 96YRS OLD. Mother Family Medical History: Cancer Additional Family Medical History / Comment(s): MOTHER HAD BREAST CANCER. General Exam Limitations: altered mental status, physical limitation General appearance: other (Arousable to voice) Head exam: Present: atraumatic, normocephalic Eye exam: Present: normal appearance, PERRL, EOMI ENT exam: Present: normal oropharynx Neck exam: Present: normal inspection Respiratory exam: Present: normal lung sounds bilaterally Cardiovascular Exam: Present: regular rate, normal rhythm GI/Abdominal exam: Present: soft. Absent: tenderness Extremities exam: Present: pedal edema Neurological exam: Present: oriented X3, CN II-XII intact (Except for right facial droop), other (Drowsy but arousable to voice) Expanded Cranial nerves: EOM's Intact: Normal Motor strength exam: RUE: 0, LUE: 5, RLE: 0, LLE: 5 Eye Response: (3) open to voice Motor Response: (6) obeys commands Verbal Response: (5) oriented Psychiatric exam: Present: normal affect, normal mood Skin exam: Present: normal color Course Vital Signs 01/26/18 01/26/18 01/26/18 18:24 19:02 19:28 Pulse Rate 41 L 143 H 132 H Respiratory 20 18 22 Rate Blood Pressure 91/60 119/44 96/66 O2 Sat by Pulse 99 Oximetry 01/26/18 19:56 Pulse Rate 122 H Respiratory 22 Rate Blood Pressure 115/68 O2 Sat by Pulse Oximetry Procedures - EJ/Peripheral Line No standard instances Consent Obtained: emergent situation Time Out Performed: Yes Indications: nurses unable to establish peripheral IV Skin Cleansed in Sterile Fashion: Yes Size: 20 Patient Tolerated Procedure: well, no complications Medical Decision Making - Medical Decision Making Patient reevaluated. Patient awake and alert. Patient and family updated. Case was discussed with Dr. Young, who will admit for Dr. Lancaster. - Lab Data Result diagrams: 01/26/18 18:48 01/26/18 18:48 Lab Results 01/26/18 01/26/18 01/26/18 Range/Units 18:30 18:48 18:48 WBC 14.5 H (3.8-10.6) k/uL RBC 4.96 (3.80-5.40) m/uL Hgb 14.9 (11.4-16.0) gm/dL Hct 50.8 H (34.0-46.0) % MCV 102.3 H (80.0-100.0) fL MCH 30.1 (25.0-35.0) pg MCHC 29.4 L (31.0-37.0) g/dL RDW 17.8 H (11.5-15.5) % Plt Count 204 (150-450) k/uL Neutrophils % 79 % Lymphocytes % 10 % Monocytes % 9 % Eosinophils % 0 % Basophils % 0 % Neutrophils # 11.4 H (1.3-7.7) k/uL Lymphocytes # 1.5 (1.0-4.8) k/uL Monocytes # 1.4 H (0-1.0) k/uL Eosinophils # 0.0 (0-0.7) k/uL Basophils # 0.0 (0-0.2) k/uL Hypochromasia Marked Anisocytosis Slight Macrocytosis Moderate PT (9.0-12.0) sec INR (<1.2) APTT (22.0-30.0) sec Sodium (137-145) mmol/L Potassium (3.5-5.1) mmol/L Chloride (98-107) mmol/L Carbon Dioxide (22-30) mmol/L Anion Gap mmol/L BUN (7-17) mg/dL Creatinine (0.52-1.04) mg/dL Est GFR (CKD-EPI)AfAm (>60 ml/min/1.73 sqM) Est GFR (CKD-EPI)NonAf (>60 ml/min/1.73 sqM) Glucose (74-99) mg/dL POC Glucose (mg/dL) 29 L (75-99) mg/dL POC Glu Mh Teacher ID PetitLeatha eucedan Calcium (8.4-10.2) mg/dL Total Bilirubin (0.2-1.3) mg/dL AST (14-36) U/L ALT (9-52) U/L Alkaline Phosphatase (38-126) U/L Ammonia (<30) umol/L Total Creatine Kinase 170 H (30-135) U/L CK-MB (CK-2) 13.0 H (0.0-2.4) ng/mL CK-MB (CK-2) Rel Index 7.6 Troponin I 0.093 H* (0.000-0.034) ng/mL Total Protein (6.3-8.2) g/dL Albumin (3.5-5.0) g/dL 01/26/18 01/26/18 01/26/18 Range/Units 18:48 18:48 18:48 WBC (3.8-10.6) k/uL RBC (3.80-5.40) m/uL Hgb (11.4-16.0) gm/dL Hct (34.0-46.0) % MCV (80.0-100.0) fL MCH (25.0-35.0) pg MCHC (31.0-37.0) g/dL RDW (11.5-15.5) % Plt Count (150-450) k/uL Neutrophils % % Lymphocytes % % Monocytes % % Eosinophils % % Basophils % % Neutrophils # (1.3-7.7) k/uL Lymphocytes # (1.0-4.8) k/uL Monocytes # (0-1.0) k/uL Eosinophils # (0-0.7) k/uL Basophils # (0-0.2) k/uL Hypochromasia Anisocytosis Macrocytosis PT >130.0 H (9.0-12.0) sec INR >10.0 H* (<1.2) APTT 31.9 H (22.0-30.0) sec Sodium 134 L (137-145) mmol/L Potassium 5.6 H (3.5-5.1) mmol/L Chloride 90 L (98-107) mmol/L Carbon Dioxide 18 L (22-30) mmol/L Anion Gap 26 mmol/L BUN 43 H (7-17) mg/dL Creatinine 1.80 H (0.52-1.04) mg/dL Est GFR (CKD-EPI)AfAm 33 (>60 ml/min/1.73 sqM) Est GFR (CKD-EPI)NonAf 29 (>60 ml/min/1.73 sqM) Glucose 39 L* (74-99) mg/dL POC Glucose (mg/dL) (75-99) mg/dL POC Glu Mh Teacher ID Calcium 9.7 (8.4-10.2) mg/dL Total Bilirubin 9.8 H (0.2-1.3) mg/dL AST 326 H (14-36) U/L ALT 128 H (9-52) U/L Alkaline Phosphatase 190 H (38-126) U/L Ammonia 20 (<30) umol/L Total Creatine Kinase (30-135) U/L CK-MB (CK-2) (0.0-2.4) ng/mL CK-MB (CK-2) Rel Index Troponin I (0.000-0.034) ng/mL Total Protein 6.4 (6.3-8.2) g/dL Albumin 3.7 (3.5-5.0) g/dL 01/26/18 01/26/18 01/26/18 Range/Units 19:03 19:29 19:49 WBC (3.8-10.6) k/uL RBC (3.80-5.40) m/uL Hgb (11.4-16.0) gm/dL Hct (34.0-46.0) % MCV (80.0-100.0) fL MCH (25.0-35.0) pg MCHC (31.0-37.0) g/dL RDW (11.5-15.5) % Plt Count (150-450) k/uL Neutrophils % % Lymphocytes % % Monocytes % % Eosinophils % % Basophils % % Neutrophils # (1.3-7.7) k/uL Lymphocytes # (1.0-4.8) k/uL Monocytes # (0-1.0) k/uL Eosinophils # (0-0.7) k/uL Basophils # (0-0.2) k/uL Hypochromasia Anisocytosis Macrocytosis PT (9.0-12.0) sec INR (<1.2) APTT (22.0-30.0) sec Sodium (137-145) mmol/L Potassium (3.5-5.1) mmol/L Chloride (98-107) mmol/L Carbon Dioxide (22-30) mmol/L Anion Gap mmol/L BUN (7-17) mg/dL Creatinine (0.52-1.04) mg/dL Est GFR (CKD-EPI)AfAm (>60 ml/min/1.73 sqM) Est GFR (CKD-EPI)NonAf (>60 ml/min/1.73 sqM) Glucose (74-99) mg/dL POC Glucose (mg/dL) 66 L 90 65 L (75-99) mg/dL POC Glu Mh Teacher ID Estephania Rivers, Geri Colmenares, Geri Calcium (8.4-10.2) mg/dL Total Bilirubin (0.2-1.3) mg/dL AST (14-36) U/L ALT (9-52) U/L Alkaline Phosphatase (38-126) U/L Ammonia (<30) umol/L Total Creatine Kinase (30-135) U/L CK-MB (CK-2) (0.0-2.4) ng/mL CK-MB (CK-2) Rel Index Troponin I (0.000-0.034) ng/mL Total Protein (6.3-8.2) g/dL Albumin (3.5-5.0) g/dL Disposition Clinical Impression: Hypoglycemia, Liver failure, Renal insufficiency Disposition: ADMITTED IP TO THIS HOSP Is patient prescribed a controlled substance at d/c from ED?: No Referrals: None,Stated [Primary Care Provider] - 1-2 days Decision Time: 20:34
[2018-01-26 18:41] LABS: Glucose,Whole Blood 29 mg/dL (75-99)
[2018-01-26 19:05] LABS: Glucose,Whole Blood 66 mg/dL (75-99)
[2018-01-26 19:30] LABS: Anisocytosis Slight; Basophils % (A) 0 %; Eosinophils % (A) 0 %; HCT 50.8 % (34.0-46.0); HGB 14.9 gm/dL (11.4-16.0); Hypochromasia Marked; Lymphocytes # (A) 1.5 k/uL (1.0-4.8); Lymphocytes % (A) 10 %; MCH 30.1 pg (25.0-35.0); MCHC 29.4 g/dL (31.0-37.0); MCV 102.3 fL (80.0-100.0); Macrocytosis Moderate; Mean Platelet Volume 8.9; Monocytes # (A) 1.4 k/uL (0-1.0); Monocytes % (A) 9 %; Neutrophils # (A) 11.4 k/uL (1.3-7.7); Neutrophils % (A) 79 %; Platelet Count 204 k/uL (150-450); RBC 4.96 m/uL (3.80-5.40); RDW 17.8 % (11.5-15.5); WBC 14.5 k/uL (3.8-10.6)
[2018-01-26 19:33] LABS: Albumin 3.7 g/dL (3.5-5.0); Calcium 9.7 mg/dL (8.4-10.2); Potassium 5.6 mmol/L (3.5-5.1); Total Bilirubin 9.8 mg/dL (0.2-1.3); Total Protein 6.4 g/dL (6.3-8.2)
[2018-01-26 19:47] LABS: Troponin I 0.093 ng/mL (0.000-0.034)
[2018-01-26 19:52] LABS: Glucose,Whole Blood 65 mg/dL (75-99)
[2018-01-26 19:52] LABS: Glucose,Whole Blood 90 mg/dL (75-99)
[2018-01-26 19:59] LABS: Partial Thromboplastin Time 31.9 sec (22.0-30.0)
[2018-01-26 20:01] LABS: Prothrombin Time >130.0 sec (9.0-12.0)
[2018-01-26 20:02] LABS: INR >10.0 (<1.2)
[2018-01-26] MEDS ORDERED: DEXTROSE 5%-0.45% NACL 1,000 ML IV ONE (20:05)
[2018-01-26] MEDS ORDERED: PHYTONADIONE 2 MG in SODIUM CHLORIDE 0.9% 50 ML IVPB STA (20:28)
[2018-01-26] MEDS ORDERED: NALOXONE 0.4 MG/ML 1 ML VIAL IV PRN (20:34)
[2018-01-26 20:36] LABS: Glucose,Whole Blood 153 mg/dL (75-99)
[2018-01-26 20:38] LABS: Glucose,Whole Blood 153 mg/dL (75-99)
[2018-01-26] MEDS ORDERED: PANTOPRAZOLE 40 MG/10 ML VIAL IV SCH (20:45)
[2018-01-26] MEDS: DEXTROSE 5%-0.45% NACL 1,000 ML IV SCH (21:00)
--- NOTE | 2018-01-26 21:07 | XR ---
EXAMINATION TYPE: XR chest 2V DATE OF EXAM: 01/26/2018 COMPARISON: 01/05/2018 HISTORY: Hypoglycemia. Altered mental status. Shortness of breath. TECHNIQUE: Frontal and lateral views of the chest are obtained. FINDINGS: There is a trace left pleural effusion blunting the costophrenic angle. Marked cardiomegaly is seen. No pulmonary vascular congestion. Remainder the lungs are clear. Osseous structures are bong ssly intact. IMPRESSION: Trace pleural effusion and marked cardiomegaly. No pulmonary vascular congestion to sugg est current decompensated congestive heart failure.
--- NOTE | 2018-01-26 21:10 | CT ---
EXAMINATION TYPE: CT brain wo con DATE OF EXAM: 01/26/2018 COMPARISON: 01/01/2018 HISTORY: Altered mental status. CT DLP: 1222 mGycm Automated exposure control for dose reduction was used. FINDINGS: There is a large area of encephalomalacia in the distribution of the left middle cerebral artery invo lving the left frontal and parietal lobe. There is ex vacuo dilatation of the lateral horn of the lef t ventricle in keeping with the old infarct. Old lacunar injury of the posterior limb of the left int ernal capsule is also seen. Encephalomalacia now extends along the left frontal lobe. No hemorrhagic transformation. No acute intracranial hemorrhage is seen. Additional right lacunar injury is seen in the subcortical region on image 28. This is present on the prior exam. No suspicious extra-axial flui d collection. Chronic mucoperiosteal thickening is seen of the left maxillary sinus. No acute change from the prior. Mild mucosal thickening in the ethmoid sinuses. Remainder the paranasal sinuses and m astoid air cells are well aerated. Calvarium is intact. IMPRESSION: ENCEPHALOMALACIA FROM A OLD LARGE LEFT MIDDLE CEREBRAL INFARCT AND MULTIPLE LACUNAR INJURIES[facility]. NO ACUTE INTRACRANIAL PROCESS. NO HEMORRHAGIC TRANSFORMATION.
[2018-01-26 21:25] LABS: Glucose,Whole Blood 188 mg/dL (75-99)
[2018-01-26 23:14] LABS: Glucose,Whole Blood 228 mg/dL (75-99)
--- NOTE | 2018-01-27 00:11 | US ---
EXAMINATION TYPE: US liver DATE OF EXAM: 01/26/2018 COMPARISON: NONE CLINICAL HISTORY: Liver failure. Jaundice, mid abdominal pain, prior CVA EXAM MEASUREMENTS: Liver Length: 14.9 cm Gallbladder Wall: 0.3 cm CBD: 0.5 cm Right Kidney: 9.9 x 5.3 x 5.0 cm Pancreas: hyperechoic with tail obscured by overlying bowel gas Liver: nodular borders and technically limited for views due to constant patient movement; small betty unt of free fluid is noted on multiple views inferior to right lobe of liver at level of gallbladder Gallbladder: mobile shadowing stone = 0.7 x 0.5 x 0.6cm is noted within; sludge also noted Evidence for sonographic Mistry's sign: patient stated "no" CBD: wnl Right Kidney: mid cortical cyst seen = 0.7 x 0.7 x 0.7cm; extracapsular, crescent shaped, anechoic area noted mid pole may be sonographic "sweat sign" which suggests renal failure IMPRESSION: Dilated gallbladder with gallstone and echogenic bile consistent with acute and chronic c holecystitis. Gallbladder measures 6 cm. Limited evaluation of the liver shows no evidence of a liver mass. No dilated ducts. Minimal ascites fluid. Right kidney shows no hydronephrosis.
[2018-01-27 00:22] LABS: Amorphous Sediment,Urine Few /hpf; Appearance,Urine Turbid (Clear); Bacteria,Urine Many /hpf; Bilirubin,Urine 1+ (Negative); Blood,Urine Moderate (Negative); Color,Urine Dark Brown; Glucose,Urine (UA) Trace (Negative); Hyaline Casts,Urine 12 /lpf (0-2); Ketones,Urine Negative (Negative); Leukocyte Esterase,Urine Large (Negative); Mucus,Urine Rare /hpf; Nitrite,Urine Negative (Negative); Protein,Urine 1+ (Negative); RBC,Urine 20 /hpf (0-5); Specific Gravity,Urine 1.015 (1.001-1.035); Squamous Epithelial Cell,Urine 77 /hpf (0-4); WBC,Urine 64 /hpf (0-5)
[2018-01-27 00:28] LABS: Glucose,Whole Blood 186 mg/dL (75-99)
[2018-01-27 00:31] LABS: Amphetamine Screen,Urine Not Detected (NotDetected); Barbiturate Screen,Urine Not Detected (NotDetected); Benzodiazepines Screen,Urine Not Detected (NotDetected); Cocaine Screen,Urine Not Detected (NotDetected); Methadone Screen, Urine Not Detected (NotDetected); Opiate Screen,Urine Not Detected (NotDetected); Oxycodone Screen, Urine Not Detected (NotDetected); Phencyclidine Screen,Urine Not Detected (NotDetected); Tricyclic Antidepressant,Urine Not Detected (NotDetected); Urn Cannabinoid Scrn Not Detected (NotDetected)
[2018-01-27] MEDS: PANTOPRAZOLE 40 MG/10 ML VIAL IVP SCH ×3 (00:31→21:29)
[2018-01-27 01:20] LABS: Creatine Kinase MB 17.5 ng/mL (0.0-2.4)
[2018-01-27 01:23] LABS: Troponin I 0.08 ng/mL (0.000-0.034)
[2018-01-27 02:22] LABS: Glucose,Whole Blood 215 mg/dL (75-99)
[2018-01-27 06:00] LABS: Glucose,Whole Blood 179 mg/dL (75-99)
[2018-01-27 06:16] LABS: Prothrombin Time 58.1 sec (9.0-12.0)
[2018-01-27 06:20] LABS: Glucose,Whole Blood 156 mg/dL (75-99)
[2018-01-27 06:20] LABS: Albumin 3.1 g/dL (3.5-5.0); Calcium 9.1 mg/dL (8.4-10.2); Magnesium 2.1 mg/dL (1.6-2.3); Phosphorus 4.7 mg/dL (2.5-4.5); Potassium 4.6 mmol/L (3.5-5.1); Total Protein 5.7 g/dL (6.3-8.2)
[2018-01-27 06:36] LABS: INR 6.4 (<1.2)
[2018-01-27] MEDS ORDERED: SODIUM CHLORIDE 0.9% 500 ML 500 ML IV ONE (06:54)
[2018-01-27 06:55] LABS: Creatine Kinase MB 14.6 ng/mL (0.0-2.4)
[2018-01-27 06:57] LABS: Troponin I 0.102 ng/mL (0.000-0.034)
[2018-01-27 07:10] LABS: Anisocytosis Slight; Basophils % (A) 0 %; Eosinophils % (A) 0 %; HGB 13.5 gm/dL (11.4-16.0); Hypochromasia Moderate; Lymphocytes # (A) 1.4 k/uL (1.0-4.8); Lymphocytes % (A) 9 %; MCH 31.1 pg (25.0-35.0); MCHC 31.4 g/dL (31.0-37.0); MCV 98.8 fL (80.0-100.0); Macrocytosis Slight; Mean Platelet Volume 8.4; Monocytes % (A) 6 %; Neutrophils # (A) 13.4 k/uL (1.3-7.7); Neutrophils % (A) 84 %; Platelet Count 182 k/uL (150-450); RBC 4.35 m/uL (3.80-5.40); RDW 18.2 % (11.5-15.5)
--- NOTE | 2018-01-27 07:34 | HP ---
HISTORY AND PHYSICAL CHIEF COMPLAINTS: Change in mental status. HISTORY OF PRESENT ILLNESS: This 67-year-old woman with a past medical history of multiple medical problems such as atrial ablation, CHF, COPD, CVA, TIA, GERD, hypertension, hyperlipidemia, had multiple hospital admissions recently. The most recently the patient was admitted with gait dysfunction, shortness of breath, aortic stenosis. Patient apparently sent to [facility] also. From the prison, the patient went to the apartment where the patient has been staying for several years and apparently the patient had change in mental status and the family found the blood pressure is low and the patient taken to [facility] and admitted for evaluation and treatment. EMS found the Accu-Cheks are 146. The patient is jaundiced. Bilirubin is elevated also. There is no history of fever, rigors. No history of headache, loss of conscious or seizures. The initial CAT scan and other exams were done. Findings are pending at this time. There is no history of fever, rigors or chills. PAST MEDICAL HISTORY: Atrial fibrillation, history of CHF, COPD, CVA, TIA, GERD, hypertension, hyperlipidemia. The patient being followed by Dr. Du Lancaster in the outpatient setting. MEDICATIONS ARE: Home medications are reviewed and include: 1. Prednisone taper. 2. Coumadin 2 mg daily. 3. Spiriva 1 puff daily. 4. Protonix 40 mg. 5. Lopressor 25 mg q.h.s. 7. Zestril 2.5 mg. 8. Synthroid 25 mcg. 9. DuoNeb q.i.d. and p.r.n. 10.Levemir 10 units subcu q.h.s. 11.Lasix 40 mg p.o. b.i.d. 12.Perforomist 20 mg b.i.d. 13.Doxycycline 100 mg p.o. b.i.d. 14.Symbicort 160/4.5 2 puffs b.i.d. 15.Pulmicort 1 mg b.i.d. 16.Tylenol 650 q.6h p.r.n. ALLERGIES: None. FAMILY HISTORY: No history of heart disease or strokes in the family. SOCIAL HISTORY: Previous history of smoking. No history of alcohol intake. REVIEW OF SYSTEMS: ENT: No diminished hearing or vision. CARDIOVASCULAR: No angina or palpitations. Respiration as mentioned earlier. GI: As mentioned earlier. : No dysuria. NERVOUS SYSTEM: As mentioned earlier. Musculoskeletal as mentioned earlier. Hematology/Oncology: No history of anemia. CONSTITUTIONAL: As mentioned dermatology. Allergy/Immunology: No asthma or hayfever. Dermatology: Negative. Rheumatology: Negative. Psychiatry: As mentioned earlier. PHYSICAL EXAM: Patient is alert, oriented x2. Pulse is 122, blood pressure 115/60, respiratory rate 22, temperature normal, pulse ox 98% on 2 L. HEENT conjunctivae is icteric. Oral mucosa moist. Neck is no jugular venous distention. No carotid bruit. No lymph node enlargement. Cardiovascular: S1- S2 muffled. No S3, no S4. RESPIRATORY: Breath sounds diminished in the bases. A few scattered rhonchi and crackles. ABDOMEN: Soft, obese, nontender. No mass. LEGS: Bilateral leg edema present. The leg is deeply cyanotic. Nervous system : Right- sided weakness present and patient is dysarthric. JOINTS: No active deforming arthropathy. Skin as mentioned. LABS: Accu-Cheks noted. Otherwise, INR more than 10. WBC 14.5, MCV 102.3, and total bilirubin is 9.8, AST is 326, ALT is 128. Ammonia is 20. Troponin 0.093. ASSESSMENT: 1. Change in mental status, acute metabolic acidosis secondary to possible acute hypoglycemia. 2. Elevated bilirubin with possible acute hepatitis, etiology undetermined. 3. Troponin 0 0.093 indeterminate. 4. Increased creatinine with acute renal failure possibly prerenal. 5. Hyponatremia. 6. Hyperkalemia. 7. Coumadin coagulopathy. 8. Increased WBC. 9. History of atrial fibrillation. 10.History of congestive heart failure. 11.Chronic obstructive pulmonary disease. 12.History of cerebrovascular accident/transient ischemic attack. 13.History of gait dysfunction. 14.Gastroesophageal reflux disease. 15.Hypertension. 16.Hyperlipidemia. 17.History of degenerative joint disease. 18.History of pneumonia. 19.History of atrial fibrillation. 20.History of aortic stenosis with significant pulmonary hypertension. 21.History of lower extremity cellulitis. 22.Obesity with body mass of 36.8. RECOMMENDATIONS AND DISCUSSION: This 67-year-old gentleman who presented with multiple complex medical issues, we will monitor the patient closely, continue the current medications, management and symptomatic treatment. Otherwise, at this time I recommend to stop all the antihypertensive medication. Monitor blood sugars closely. Otherwise, I would also recommend to avoid hepatotoxic medications. Exact etiology of hepatitis is not known at this time. I recommend gastrology evaluation and the ultrasound of the liver also will be done. CT scan of the brain report is pending at this time. Prognosis guarded because of multiple complex medical issues. Further recommendations to follow. A copy of dictation being forwarded to Dr. Du Lancaster who is the primary physician. MMPHOENIXL / IJN: [id number] / JANNY
[2018-01-27] MEDS: METOPROLOL TARTRATE 50 MG TAB PO SCH (07:55)
[2018-01-27] MEDS ORDERED: FORMOTEROL FUMARATE 20 MCG/2 ML NEBU INHALATION SCH (08:00)
[2018-01-27] MEDS ORDERED: BUDESONIDE 1 MG/2 ML NEBU INHALATION SCH (08:00)
[2018-01-27 08:04] LABS: Glucose,Whole Blood 155 mg/dL (75-99)
[2018-01-27 08:20] LABS: Polychromasia Present
[2018-01-27] MEDS: NOREPINEPHRINE 4 MG in SODIUM CHLORIDE 0.9% 250 ML IV SCH ×3 (08:23→23:48)
[2018-01-27] MEDS: IPRATROPIUM-ALBUTEROL 3 ML NEB INHALATION SCH ×4 (08:24→20:35)
[2018-01-27] MEDS ORDERED: VANCOMYCIN IV PER PHARMACY 1 EACH MISC MISCELLANE PRN (08:54)
[2018-01-27] MEDS ORDERED: PHYTONADIONE 5 MG in SODIUM CHLORIDE 0.9% 50 ML IVPB STA ×2 (08:58→14:38)
[2018-01-27] MEDS ORDERED: FUROSEMIDE 40 MG TAB PO SCH (09:00)
--- NOTE | 2018-01-27 09:11 | P.CNPUL ---
History of Present Illness Consult date: 01/27/18 Chief complaint: Altered mentation History of present illness: This is a 67-year-old female patient with previous history of CVA right-sided with expressive aphasia and addition to COPD, chronic atrial fibrillation, CHF with a dysfunction, recurrent cellulitis of the right lower extremity, recurrent urine checked infection with enterococcus he showing klebsiella species in addition to hypertension and hyperlipidemia. This patient came in yesterday from [facility] with hypoglycemia, Coumadin toxicity, acute kidney injury, altered mentation diminished level of consciousness. Her baseline is awake and communicating via saying yes and no and using different signs. I was told that yesterday her mental status was down and she got admitted to the medical floor where she was found to be hypoglycemic with a blood sugar of 30. The patient was also found to be hypotensive. The hypoglycemia was treated. The patient got 500 disease of normal saline bolus and following that the patient got transferred to the intensive care unit and she was placed on pressors through an external jugular line in her right neck. Currently she is on norepinephrine infusion at 10 mics. She is a bit more responsive and alert. CAT scan of the brain was done and it showed encephalomalacia and old large left middle cerebral artery infarct with multiple lacunar infarcts unchanged compared to her prior evaluations. Patient was given 2 mg of vitamin K and INR dropped down to 6.4. The patient was given IV Rocephin as an empiric antibiotic coverage. UA was suggestive of recurrent UTI. The patient has no active cellulitis in the right lower extremity. She is in atrial fibrillation. She is not rapid ventricular response and the heart rate is around 120. Nevertheless, since she came up to the ICU, she has become much more responsive. Typically stakes insulin and metformin for her blood sugars. Of note, abnormalities in her LFTs. Bilirubin AST and ALP are quite elevated. Ultrasound of the gallbladder showed a dilated gallbladder with gallstones and echogenic bile consistent with acute and chronic cholecystitis. Gallbladder measured 6 cm in size. Limited evaluation of the liver showed no evidence of any liver mass. Note that dilated ducts. Minimal amount of ascites. Right kidney shows no evidence of any hydronephrosis. Review of Systems Unable to do a full review of system as the patient has expressive aphasia and altered mentation. ROS unobtainable: due to mental status Past Medical History Past Medical History: Atrial Fibrillation, Chest Pain / Angina, Heart Failure, COPD, CVA/TIA, GERD/Reflux, Hyperlipidemia, Hypertension, Osteoarthritis (OA), Pneumonia, Renal Disease Additional Past Medical History / Comment(s): 2002 CVA with R sided weakness arm /leg/contracted R hand and dysphasia, Afib with RVR, cardiac valve disease, DJD , occasional back pain, bronchitis, UTIs, kidney infections, anemia, head injury. 2018 CVA with right side flaccid and dysphagia, recent hospitalization for COPD exacerbation in addition to a right lower extremity cellulitis. Recent treatment for enterococcus patient septicemia. History of Any Multi-Drug Resistant Organisms: None Reported Past Surgical History: Section, Hernia Repair, Orthopedic Surgery, Tonsillectomy Additional Past Surgical History / Comment(s): Incarcerated umbilical hernia repair/omentum resection, X2, L tibial IM nailing, teeth extractions. Past Anesthesia/Blood Transfusion Reactions: No Reported Reaction Past Psychological History: No Psychological Hx Reported Additional Psychological History / Comment(s): Lives in a senior apartment. Her daughter does help. She is a reformed smoker. No experience. No animals in the home Smoking Status: Former smoker Past Alcohol Use History: None Reported Additional Past Alcohol Use History / Comment(s): has smoked off and on since age 14 Past Drug Use History: None Reported - Past Family History Father Family Medical History: No Reported History Additional Family Medical History / Comment(s): FATHER WAS HEALTHY AND LIVED TO BE 96YRS OLD. Mother Family Medical History: Cancer Additional Family Medical History / Comment(s): MOTHER HAD BREAST CANCER. Medications and Allergies Home Medications Medication Instructions Recorded Confirmed Type Tiotropium Tebbetts [Spiriva] 1 cap INHALATION RT-DAILY 05/01/17 01/26/18 History Metoprolol Tartrate [Lopressor] 50 mg PO DAILY 11/02/17 01/26/18 History Levothyroxine Sodium [Synthroid] 25 mcg PO DAILY 12/18/17 01/26/18 History Acetaminophen Tab [Tylenol] 650 mg PO Q6HR PRN tab 12/23/17 01/26/18 Rx Budesonide-Formot 160-4.5 Mcg 2 puff INHALATION RT-BID #1 puff 12/23/17 Rx [Symbicort 160-4.5 Mcg Inhaler] Metoprolol Tartrate [Lopressor] 25 mg PO HS #30 tab 12/23/17 01/26/18 Rx Budesonide [Pulmicort] 1 mg INHALATION RT-BID #60 nebu 01/03/18 01/26/18 Rx Formoterol Fumarate [Perforomist] 20 mcg INHALATION RT-BID #60 nebu 01/03/1810/08 Rx Insulin Detemir [Levemir] 20 unit SQ HS #1 syr 01/03/18 01/26/18 Rx Ipratropium-Albuterol Nebulize 3 ml INHALATION RT-QID #120 01/03/18 01/26/18 Rx [Duoneb 0.5 mg-3 mg/3 ml Soln] ampul.neb Pantoprazole [Protonix] 40 mg PO AC-BRKFST #30 tablet. 01/03/18 01/26/18 Rx Doxycycline Hyclate 100 mg PO Q12H #14 tab 01/08/18 01/26/18 Rx Furosemide [Lasix] 40 mg PO BID@0900,1600 #60 tab 01/08/18 01/26/18 Rx Lisinopril [Zestril] 2.5 mg PO DAILY #30 tab 01/08/18 01/26/18 Rx Warfarin Sodium [Coumadin] 2 mg PO DAILY #7 tablet 01/08/18 01/26/18 Rx predniSONE See Taper PO DAILY #17 tab 01/08/18 01/26/18 Rx Allergies Allergy/AdvReac Type Severity Reaction Status Date / Time No Known Allergies Allergy Verified 01/26/18 20:00 Physical Exam Vitals: Vital Signs Temp Pulse Pulse Resp BP BP Pulse Ox 01/27/18 08:47 120 H 01/27/18 08:34 111 H 01/27/18 08:24 109 H 01/27/18 08:00 124 H 97/47 100 01/27/18 07:50 114 H 97/47 98 01/27/18 07:40 129 H 85/62 99 01/27/18 07:30 108 H 76/65 98 01/27/18 07:20 132 H 76/65 98 01/27/18 07:10 138 H 95/71 98 01/27/18 07:00 97.9 F 122 H 16 98/58 97 01/27/18 06:50 113 H 73/58 96 01/27/18 06:40 82/53 100 01/27/18 06:30 86/62 100 01/27/18 03:13 97.5 F L 98 20 105/59 95 01/26/18 23:40 115 H 18 117/58 100 01/26/18 23:21 122 H 18 98/62 01/26/18 22:42 97.2 F L 109 H 20 95/70 99 01/26/18 22:13 115 H 20 133/85 100 01/26/18 21:00 119 H 20 136/92 100 01/26/18 19:56 122 H 22 115/68 01/26/18 19:28 132 H 22 96/66 01/26/18 19:02 143 H 18 119/44 01/26/18 18:24 41 L 20 91/60 99 Intake and Output 01/26/18 01/27/18 01/27/18 22:59 06:59 14:59 Intake Total 400 1 Balance 400 1 Intake: IV 400 Dextrose 5%-0.45% NaCl 1, 400 000 ml @ 100 mls/hr IV . Q10H [facility] Rx#:[id number] Intake, IV Titration 1 Amount Norepinephrine 4 mg In 1 Sodium Chloride 0.9% 250 ml @ Titrate IV .Q0M [facility] Rx#:[id number] Other: Voiding Method Incontinent Weight 106.7 kg Gen. appearance the patient seems to be much more alert and she is opening her eyes and following some simple commands. She is unable to hold a conversation however she is able to answer yes and no. No acute respiratory distress. No signs of any respiratory failure for now. Head exam was generally normal. There was no scleral icterus or corneal arcus. Mucous membranes were moist. Neck was supple and without jugular venous distension, thyromegaly, or carotid bruits. Carotids were easily palpable bilaterally. There was no adenopathy. Lungs sounds revealed some limited crackles at lung bases bilaterally otherwise clear. Heart sounds are irregular S1 and S2 tachycardic, no cervical murmurs appreciated. Abdominal exam revealed normal bowel sounds. The abdomen was soft, non-tender, and without masses, organomegaly, or appreciable enlargement of the abdominal aorta. Extremities reveal chronic edema and chronic discoloration of the right lower extremity related to previous recurrent cellulitis. Nevertheless there is no evidence of any active cellulitis or wounds for now. Neurologically the patient has expressive aphasia and right-sided hemiplegia which is a chronic findings along with spasticity on the right. Psychiatric evaluation cannot be done. Results - Laboratory Findings CBC and BMP: 01/27/18 05:43 01/27/18 05:44 PT/INR, D-dimer PT 58.1 sec (9.0-12.0) H 01/27/18 05:43 INR 6.4 (<1.2) H* 01/27/18 05:43 Abnormal lab findings: Abnormal Labs 01/26/18 01/26/18 01/26/18 18:30 18:48 18:48 WBC 14.5 H Hct 50.8 H MCV 102.3 H MCHC 29.4 L RDW 17.8 H Neutrophils # 11.4 H Monocytes # 1.4 H PT INR APTT Sodium Potassium Chloride Carbon Dioxide BUN Creatinine Glucose POC Glucose (mg/dL) 29 L Phosphorus Total Bilirubin AST ALT Alkaline Phosphatase Total Creatine Kinase 170 H CK-MB (CK-2) 13.0 H Troponin I 0.093 H* Total Protein Albumin HDL Cholesterol Urine Appearance Urine Protein Urine Glucose (UA) Urine Blood Urine Bilirubin Ur Leukocyte Esterase Urine RBC Urine WBC Ur Squamous Epith Cells Amorphous Sediment Urine Bacteria Hyaline Casts Urine Mucus 01/26/18 01/26/18 01/26/18 18:48 18:48 19:03 WBC Hct MCV MCHC RDW Neutrophils # Monocytes # PT >130.0 H INR >10.0 H* APTT 31.9 H Sodium 134 L Potassium 5.6 H Chloride 90 L Carbon Dioxide 18 L BUN 43 H Creatinine 1.80 H Glucose 39 L* POC Glucose (mg/dL) 66 L Phosphorus Total Bilirubin 9.8 H AST 326 H ALT 128 H Alkaline Phosphatase 190 H Total Creatine Kinase CK-MB (CK-2) Troponin I Total Protein Albumin HDL Cholesterol Urine Appearance Urine Protein Urine Glucose (UA) Urine Blood Urine Bilirubin Ur Leukocyte Esterase Urine RBC Urine WBC Ur Squamous Epith Cells Amorphous Sediment Urine Bacteria Hyaline Casts Urine Mucus 01/26/18 01/26/18 01/26/18 19:49 20:17 20:37 WBC Hct MCV MCHC RDW Neutrophils # Monocytes # PT INR APTT Sodium Potassium Chloride Carbon Dioxide BUN Creatinine Glucose POC Glucose (mg/dL) 65 L 153 H 153 H Phosphorus Total Bilirubin AST ALT Alkaline Phosphatase Total Creatine Kinase CK-MB (CK-2) Troponin I Total Protein Albumin HDL Cholesterol Urine Appearance Urine Protein Urine Glucose (UA) Urine Blood Urine Bilirubin Ur Leukocyte Esterase Urine RBC Urine WBC Ur Squamous Epith Cells Amorphous Sediment Urine Bacteria Hyaline Casts Urine Mucus 01/26/18 01/26/18 01/26/18 21:23 23:12 23:54 WBC Hct MCV MCHC RDW Neutrophils # Monocytes # PT INR APTT Sodium Potassium Chloride Carbon Dioxide BUN Creatinine Glucose POC Glucose (mg/dL) 188 H 228 H Phosphorus Total Bilirubin AST ALT Alkaline Phosphatase Total Creatine Kinase CK-MB (CK-2) Troponin I Total Protein Albumin HDL Cholesterol Urine Appearance Turbid H Urine Protein 1+ H Urine Glucose (UA) Trace H Urine Blood Moderate H Urine Bilirubin 1+ H Ur Leukocyte Esterase Large H Urine RBC 20 H Urine WBC 64 H Ur Squamous Epith Cells 77 H Amorphous Sediment Few H Urine Bacteria Many H Hyaline Casts 12 H Urine Mucus Rare H 01/27/18 01/27/18 01/27/18 00:25 00:30 02:11 WBC Hct MCV MCHC RDW Neutrophils # Monocytes # PT INR APTT Sodium Potassium Chloride Carbon Dioxide BUN Creatinine Glucose POC Glucose (mg/dL) 186 H 215 H Phosphorus Total Bilirubin AST ALT Alkaline Phosphatase Total Creatine Kinase 212 H CK-MB (CK-2) 17.5 H Troponin I 0.080 H* Total Protein Albumin HDL Cholesterol Urine Appearance Urine Protein Urine Glucose (UA) Urine Blood Urine Bilirubin Ur Leukocyte Esterase Urine RBC Urine WBC Ur Squamous Epith Cells Amorphous Sediment Urine Bacteria Hyaline Casts Urine Mucus 01/27/18 01/27/18 01/27/18 05:43 05:43 05:44 WBC 16.0 H Hct MCV MCHC RDW 18.2 H Neutrophils # 13.4 H Monocytes # PT 58.1 H INR 6.4 H* APTT Sodium 134 L Potassium Chloride 88 L Carbon Dioxide BUN 54 H Creatinine 1.81 H Glucose 165 H POC Glucose (mg/dL) Phosphorus 4.7 H Total Bilirubin 7.0 H AST 431 H ALT 184 H Alkaline Phosphatase 170 H Total Creatine Kinase CK-MB (CK-2) Troponin I Total Protein 5.7 L Albumin 3.1 L HDL Cholesterol 15 L Urine Appearance Urine Protein Urine Glucose (UA) Urine Blood Urine Bilirubin Ur Leukocyte Esterase Urine RBC Urine WBC Ur Squamous Epith Cells Amorphous Sediment Urine Bacteria Hyaline Casts Urine Mucus 01/27/18 01/27/18 01/27/18 05:44 05:50 06:19 WBC Hct MCV MCHC RDW Neutrophils # Monocytes # PT INR APTT Sodium Potassium Chloride Carbon Dioxide BUN Creatinine Glucose POC Glucose (mg/dL) 179 H 156 H Phosphorus Total Bilirubin AST ALT Alkaline Phosphatase Total Creatine Kinase 165 H CK-MB (CK-2) 14.6 H Troponin I 0.102 H* Total Protein Albumin HDL Cholesterol Urine Appearance Urine Protein Urine Glucose (UA) Urine Blood Urine Bilirubin Ur Leukocyte Esterase Urine RBC Urine WBC Ur Squamous Epith Cells Amorphous Sediment Urine Bacteria Hyaline Casts Urine Mucus 01/27/18 08:02 WBC Hct MCV MCHC RDW Neutrophils # Monocytes # PT INR APTT Sodium Potassium Chloride Carbon Dioxide BUN Creatinine Glucose POC Glucose (mg/dL) 155 H Phosphorus Total Bilirubin AST ALT Alkaline Phosphatase Total Creatine Kinase CK-MB (CK-2) Troponin I Total Protein Albumin HDL Cholesterol Urine Appearance Urine Protein Urine Glucose (UA) Urine Blood Urine Bilirubin Ur Leukocyte Esterase Urine RBC Urine WBC Ur Squamous Epith Cells Amorphous Sediment Urine Bacteria Hyaline Casts Urine Mucus Assessment and Plan Plan: Assessment 1 altered mental status, multifactorial, likely secondary to underlying recurrent sepsis and as such an underlying recurrent UTI is suspected. Hypoglycemia also could've contributed to her altered mentation. The CAT scan findings are essentially chronic and the patient is an old CVA involving the left MCA distribution. 2 acute hepatitis with elevated bilirubin. Exact etiology is not clear. Ultrasound the gallbladder showing dilated gallbladder with gallstones. Clinically there is no evidence of an acute cholecystitis at this point in time. This is to be further investigated. 3 Coumadin toxicity, given vitamin K in the INR dropped down to 6.4 4 acute kidney injury in the creatinine is up to 1.8 5 acute hypotension, likely secondary to underlying sepsis, source being possibly an underlying UTI 6 chronic atrial fibrillation with rapid ventricular response. 7 history of recurrent right lower extremity cellulitis with previous wounds in the right leg, currently inactive in stable 8 history of CVA with expressive aphasia and right-sided hemiplegia 9 COPD 10 hypertension 11 hyperlipidemia 12 recurrent UTI with Enterococcus 13 diabetes mellitus with an episode of hypoglycemia, admission, treated Plan Stop the anticoagulation and give the patient additional 5 mg of vitamin K and monitor the PT/INR to bring it down below 2. Once the INR is below 2 would proceed with an insertion of a triple-lumen catheter. Meanwhile, the patient will be given 2 L of IV fluids in the form of normal saline. The maintenance fluids will be maintained at 75 mL an hour of normal saline. We'll monitor the blood sugar seems to be improved for now and cover with sliding scale coverage only. Stop the metformin. Stop insulin long-acting. Also, continue with pressors and the patient is currently on norepinephrine infusion for blood pressure support. Cover the patient with empiric antibiotics. Put the patient on a combination of vancomycin and cefepime pending further cultures. Obtain CAT scan of the abdomen and pelvis with oral contrast only. Of concern is abnormal LFTs and this will be needed to assess any intra-abdominal pathology contributing to the abnormal LFTs. There is evidence of an acute/chronic cholecystitis with gallstones. Clinically the patient has no right upper quadrant tenderness. May need a surgical consultation to evaluate the gallbladder also. Neurologically, the patient's CAT scan of the brain is unchanged. His COPD is currently inactive and stable. She'll be kept in ICU. CODE STATUS is full. We'll continue to follow. Time with Patient: Greater than 30
[2018-01-27] MEDS ORDERED: VANCOMYCIN 2,000 MG in SODIUM CHLORIDE 0.9% 500 ML 500 ML IVPB ONE (10:00)
[2018-01-27] MEDS: SODIUM CHLORIDE 0.9% 1,000 ML IV SCH ×3 (10:21→11:21)
[2018-01-27] MEDS: IOPAMIDOL-300 CONTRAST 30 ML VIAL (ORAL USE) PO PRN ×2 (10:29→11:51)
[2018-01-27] MEDS: LEVOTHYROXINE 25 MCG TAB PO SCH (10:37)
[2018-01-27] MEDS: CEFEPIME 2 GM in SODIUM CHLORIDE 0.9% 50 ML IVPB SCH ×2 (10:44→21:29)
--- NOTE | 2018-01-27 11:03 | CONS ---
CONSULTATION DATE OF DICTATION: 01/27/2018 REASON FOR CONSULTATION: Elevated LFTs and jaundice. HISTORY OF PRESENT ILLNESS: The patient is a 67-year-old pleasant white female with a history of CVA and right- sided hemiparesis and expressive aphasia. History of atrial fibrillation on Coumadin, congestive heart failure was transferred from the [facility] because of altered mental status, severe hypoglycemia and Coumadin toxicity. When she came to the emergency room, she was hypotensive and was transferred to the intensive care unit. She was resuscitated with fluids, however, continues to remain hypotensive. Her routine labs at the time of admission the patient the hospital did show elevated LFTs with ALT and AST in the range of 200s and T bilirubin up to 9.4 g/dL. She did have ultrasound of the abdomen done in the emergency room that showed dilated gallbladder with a gallstone and changes consistent with possible acute cholecystitis. The gallbladder was measuring about 6 cm in size. The patient denies any prior medical history of chronic liver disease. No history of jaundice or hepatitis in the past. She denies any alcohol use. She does have longstanding history of diabetes mellitus. Ultrasound of the abdomen also showed nodular liver suspicious for chronic liver disease. PAST MEDICAL HISTORY: Her past medical history significant for atrial fibrillation, COPD, CVA with right- sided hemiparesis and expressive aphasia, congestive heart failure. Hyperlipidemia, hypertension, degenerative joint disease, pneumonia, renal disease, and COPD. PAST SURGICAL HISTORY: , hiatal hernia, tonsillectomy, umbilical hernia repair, surgery. MEDICATIONS: At home in the [facility] include Symbicort, Lopressor, Pulmicort, Levemir, DuoNeb, Protonix, Lasix, Restoril, Coumadin, prednisone, and Spiriva. ALLERGIES: None. SOCIAL HISTORY: No smoking or alcohol use. FAMILY HISTORY: Father is healthy 96 years old. Mother had breast cancer. REVIEW OF SYSTEMS: Cardiopulmonary: No chest pain, shortness of breath. Genitourinary: No dysuria or hematuria. Musculoskeletal unremarkable. Skin unremarkable. Endocrine unremarkable. Psychiatric unremarkable. Neurology: Expressive aphasia, but we can understand the patient reasonably well. GI: The patient denies any abdominal pain. No nausea, vomiting. Psychiatric unremarkable. Hematology unremarkable. PHYSICAL EXAMINATION: She appears comfortable in no apparent distress. Vital signs are stable. Blood pressure is 97/47, pulse rate 124 per minute, presently on 10 mics of Levophed. HEENT examination unremarkable. Conjunctivae pink. Sclerae anicteric. Oral cavity no lesions. Neck no jugular venous distention or lymph node enlargement. The chest was clear to auscultation. HEART: Regular rate and rhythm. ABDOMEN: Soft, it was nontender, nondistended. Liver and spleen not palpable. Bowel sounds are positive. No organomegaly. Extremities: No pedal edema. Skin no rashes. Neuro: Some expressive aphasia and right-sided hemiparesis. LABORATORY DATA: Labs at the time of admission to the hospital: WBC 14.5, hemoglobin 14.9, platelets are normal. INR was PTT more than 30. INR more than 10. BUN was 43, creatinine 1.83, sodium 134, potassium 5.6, chloride 90, CO2 18. Blood sugar was 39, today it is 165. T-bilirubin is 9.8 and today it is down to 7. AST 326, ALT 128, and alkaline phosphatase 190. Today AST is 431, ALT is 184, and alkaline phosphatase 170. Troponin was slightly elevated. Urinalysis, leukocyte esterase was large. IMPRESSION: This is a lady who was admitted to the hospital with altered mental status and hypertension. Subsequently was noted to have mild hyperglycemia, which was treated and her mental status has improved. She was also found to have urinary tract infection. Presently on broad-spectrum antibiotics, continues to remain in ICU on Levophed at 10 mics an hour. She was noted to have elevated serum transaminases as well as bilirubin up to 9.4. The lady has no history of chronic liver disease. On review of her labs from her previous hospitalization a month ago, her ALT and AST are completely within normal limits. However, her bilirubin was up to 3.3 at that time. Currently, her bilirubin is 9.8 with ALT and AST in the range of 200s and alkaline phosphatase of 180. Ultrasound of the abdomen did show evidence of gallstones but no biliary ductal dilation. Gallbladder was dilated to 6 cm and some changes of acute cholecystitis. Clinically, the patient is asymptomatic in regards to abdominal pain. At this time, it is unclear if she has any chronic liver disease with decompensation or this is related to any biliary pathology related to gallstones. RECOMMENDATIONS: 1. Agree with broad-spectrum antibiotics. 2. Repeat labs in the morning. 3. Agree with CT of the abdomen and pelvis with oral contrast only. 4. Based on the findings, I will consider an MRCP to investigate this further. 5. For now, we will follow her closely during hospital stay. 6. Obtain some workup for chronic liver disease. Thank you for this consultation. JAREN / EPI: [id number] /
--- NOTE | 2018-01-27 11:19 | CONS ---
CONSULTATION CHIEF COMPLAINT: Change in mental status. This is a 67-year-old lady with chronic and complex medical problems including CVA, COPD, TIA and GERD, hypertension, dyslipidemia, multiple prior hospitalizations, in fact she was recently discharged home last month. She is in extended care facility. There was a change in mental status, so she was brought back to [facility] and initial blood sugars were apparently low with subsequent blood sugars were fine. Last night while on the floor, she became hypotensive. I started her on Levophed and transferred her to ICU. At the time of my evaluation this morning, she is on IV Levophed, appears more responsive, but her baseline mental status is confused. She remains in atrial fibrillation with poorly controlled ventricular rate. Hemoglobin is normal at 13.5. Her INR was elevated at 10, received vitamin K. It has come down to 6.4. Potassium is 4.6, BUN and creatinine are elevated at 54 and 1.8. Troponin is 0.1, 0.08 and 0.09, probably related to renal insufficiency. The patient is currently on Lopressor which is on hold and intravenous Levophed along with antibiotics. PAST MEDICAL HISTORY: Significant for chronic atrial fibrillation, CVA, anemia, GERD, hypertension, dyslipidemia. MEDICATION: At home which include Coumadin, Spiriva, Lopressor, Zestril, Synthroid, DuoNeb, , and Lasix. ALLERGIES: No known drug allergies. FAMILY HISTORY: Negative for premature coronary artery disease. SOCIAL HISTORY: Negative for smoking, EtOH abuse, or drug abuse. REVIEW OF SYSTEMS: HEENT is unremarkable. Cardiac as described above. Respiratory as described above. GI negative. Genitourinary significant for renal insufficiency. Psychosocial negative. Endocrine negative. Dermatological negative. Constitutional negative. 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 PHYSICAL EXAMINATION: On exam, heart rate is 120 beats per minute. Blood pressure 97/40, respiratory rate 18. Chest exam reveals good air entry bilaterally. Heart exam reveals first and second heart sounds, irregular rhythm. Systolic murmur at the left lower sternal border. Abdomen is soft. Exam of extremities reveals bilateral pitting edema. Right leg is more swollen than the left and there are ecchymotic changes over the right leg. ASSESSMENT: 1. Hypotension. 2. Altered mental status. 3. Chronic atrial fibrillation with poorly controlled ventricular rate. 4. Coagulopathy. PLAN: We should stop Coumadin in this lady, given the coagulopathy, we will consider placing her on an oral anticoagulant on discharge. The coagulopathy is being reversed with vitamin K. We will hold off on beta blockers and diuretics at this time. Continue the Levophed. The patient's hypotension may be related to urinary tract infection or sepsis. MMODL / IJN: [id number] /
[2018-01-27 11:31] LABS: Glucose,Whole Blood 121 mg/dL (75-99)
[2018-01-27] MEDS: THIAMINE 100 MG TAB PO SCH (11:51)
[2018-01-27] MEDS: FOLIC ACID 1 MG TAB PO SCH (11:51)
[2018-01-27] MEDS: MULTIVITAMINS, THERA 1 EACH TAB PO SCH (11:51)
[2018-01-27 12:17] LABS: Prothrombin Time 52.2 sec (9.0-12.0)
[2018-01-27 12:29] LABS: INR 5.7 (<1.2)
[2018-01-27] MEDS ORDERED: SODIUM CHLORIDE 0.9% 1,000 ML IV ONE (12:59)
--- NOTE | 2018-01-27 13:09 | CT ---
EXAMINATION TYPE: CT abdomen pelvis wo con DATE OF EXAM: 01/27/2018 COMPARISON: Previous study dated 11/07/2017 HISTORY: Patient poor historian. CT DLP: 1998.7 mGycm Automated exposure control for dose reduction was used. FINDINGS: There are small, bilateral effusions, greater on the right than the left. There is associat ed relaxation atelectasis. There is a 2.6 cm pericardial effusion. The heart is enlarged. The gallbladder is distended measuring almost 9 cm. Noncontrast views of the liver are unremarkable w ithout evidence of hepatic mass. The spleen is normal in size. There is a stable 1.7 cm left adrenal mass. Statistically, this likely represents an adrenal adenoma. There is some cortical calcification involving the right kidney, unchanged from previous. There is no evidence of nephrolithiasis or hydronephrosis. Limited views of the pancreas are unremarkable. There is a Bermudez catheter within the bladder. Uterus appears unremarkable. The ovaries are not clearl y visualized. There is some contrast present within the small bowel. No large bowel contrast is seen. There is no e vidence of obstruction. No free air and no free fluid is seen. There is generalized anasarca throughout the entire examination. No bony lesion is seen. IMPRESSION: 1. LIMITED EXAMINATION WITHOUT INTRAVENOUS CONTRAST AND WITH LITTLE ORAL CONTRAST. 2. BILATERAL EFFUSIONS, GREATER ON THE RIGHT AND THE LEFT. 3. PERICARDIAL EFFUSION. 4. DISTENTION OF THE GALLBLADDER. THERE IS BEEN PREVIOUSLY DESCRIBED ON ULTRASOUND. 5. STABLE LEFT ADRENAL ADENOMA. 6. SCARRING CALCIFICATION INVOLVING THE RIGHT KIDNEY. 7. GENERALIZED ANASARCA.
[2018-01-27] MEDS ORDERED: DILTIAZEM DRIP BOLUS FROM BAG 1 MG SOLN IV ONE (13:15)
[2018-01-27] MEDS: DILTIAZEM 50 MG in SODIUM CHLORIDE 0.9% 40 ML IV SCH ×2 (13:43→17:52)
[2018-01-27 15:41] LABS: Glucose,Whole Blood 126 mg/dL (75-99)
--- NOTE | 2018-01-27 18:58 | PN ---
PROGRESS NOTE DATE OF SERVICE: 01/27/2018 This 67-year-old woman was admitted with change in mental status, is being closely monitored. Patient also has elevated bilirubin. The patient had acute hepatitis of undetermined etiology. Cardiology and pulmonology and as well as gastroenterology following the patient closely. The patient is hypotensive and is being monitored closely in ICU at this time. Ultrasound showed evidence of gallstones with no biliary dilatation. Surgical evaluation has been sought at this time. Serum Tylenol level was less than 10. INR improved to 5.7 after vitamin K. PAST MEDICAL HISTORY: Reviewed. REVIEW OF SYSTEMS: Cardiovascular: No angina or palpitations. Respirations: As mentioned earlier. GI: As mentioned earlier. no dysuria. Central nervous system: Diffusely weak. CURRENT MEDICATIONS: Reviewed and include: 1. DuoNeb q.i.d. and p.r.n. 3. Cardizem drip. 4. Folic acid. 5. Dilaudid IV p.r.n. 6. Ativan. 7. Synthroid. 8. Lopressor. 9. Vancomycin. 10.Narcan. 11.Norepinephrine. PHYSICAL EXAM: Patient is alert, oriented x2, dysarthric. Pulse 121, irregular. Blood pressure 89/50, respiration 18, temp is normal. Pulse ox 98% on room air. HEENT: Conjunctivae icteric. Oral mucosa icteric. Neck is no jugular venous distention. No carotid bruit. Cardiovascular: S1, S2 muffled. Ejection systolic murmur present. Respirations: Breath sounds diminished in the bases. A few scattered rhonchi and crackles. ABDOMEN: Soft, nontender. Legs are no edema. No swelling. Central nervous system: No focal deficits. LABORATORY DATA: WBC 16. INR 0.5, sodium 134, glucose 165, total bilirubin 7, AST is 431, ALT is 184. Troponin 0.102. ASSESSMENT: 1. Change in mental status, acute metabolic encephalopathy, possibly secondary to hypoglycemia. 2. Elevated bilirubin with possible acute hepatitis, etiology undetermined. 3. Atrial fibrillation with fast ventricular rate. 4. Hypertension, multifactorial. 5. Troponin 0.092, indeterminate. 6. Increased creatinine with acute renal failure possibly prerenal. 7. Hyponatremia. 8. Hyperkalemia. 9. Coumadin coagulopathy. 10.Increased WBC. 11.History of atrial fibrillation. 12.History of congestive heart failure. 13.Chronic obstructive pulmonary disease. 14.History of cerebrovascular accident, transient ischemic attack. 15.History of gait dysfunction. 16.Gastroesophageal reflux disease. 17.Hypertension. 18.Hyperlipidemia. History of degenerative joint disease. 19.History of pneumonia. 20.History of atrial fibrillation. 21.History of aortic stenosis. 22.Secondary pulmonary hypertension. 23.History of lower extremity cellulitis. 24.Obesity with body mass index of 36.8. DISCUSSION AND RECOMMENDATIONS: In this 67-year-old woman who presented with multiple complex medical issues, we will monitor the patient closely. Continue the current management. Symptomatic treatment. The patient is on cefepime and vancomycin. I would recommend continue the current medication. Monitor liver functions closely. Continue the rest of medications. Avoid Tylenol. Hepatotoxic medications. Otherwise follow closely with multiple consultants. The prognosis extremely guarded because of multiple complex medical issues and further recommendations to follow. Discussed with the patient. See orders for details. MMODL / IJN: [id number] / MTDD
--- NOTE | 2018-01-27 19:37 | CONS ---
CONSULTATION REASON FOR CONSULT: Renal failure. HISTORY OF PRESENT ILLNESS: The patient is a 67-year-old female who was admitted to the hospital yesterday with altered mentation. The mentation is apparently improved. She has been hypotensive since admission. She is maintained on IV fluids. Levophed is at 6 mics. Serum creatinine was 1.8 mg/dL. Previous creatinine on 01/08/2018 was 0.73. Currently patient has borderline urine output at about 15-30 mL an hour. At home patient was on metformin, Zestril which are currently on hold. PAST MEDICAL HISTORY: Significant for CHF, COPD, history of CVA, GERD, hypertension, hyperlipidemia, aortic stenosis. PAST SURGICAL HISTORY: Significant for , hernia repair, tonsillectomy, incarcerated umbilical hernia repair with omentum resection, left tibia nailing. SOCIAL HISTORY: Patient is a former smoker. No history of drug abuse or alcohol abuse. MEDICATIONS: Prior to admission included: 1. Spiriva. 2. Lopressor. 3. Synthroid. 4. Tylenol. 5. Pulmicort. 6. Insulin. 7. Zestril. 8. Lasix. 9. Coumadin. 10.Prednisone. ALLERGIES: None. REVIEW OF SYSTEMS: As per HPI. Other systems negative. EXAMINATION: Patient is comfortable, awake. She is answering questions. She is oriented x3. Blood pressure about 99-104 mmHg systolic. Heart rate about 120 per minute. Patient is afebrile. Examination of the heart S1, S2. Examination of lungs bilateral breath sounds are heard. Abdomen is soft, nontender. Examination of lower extremities shows chronic skin changes, chronic cellulitis in the right lower extremity. There is discoloration of the toes in the left lower extremity. No significant edema is noted. 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 LABS: Revealed INR 5.7, sodium 134, potassium 4.6, chloride 88, BUN 54, serum creatinine 1.8, phosphorus 4.7, hemoglobin 13.5 g/dL. ASSESSMENT: 1. Acute kidney injury, acute tubular necrosis secondary to hypotension, hypoperfusion currently with borderline urine output. The patient is maintained on IV fluids which I will continue. She is getting vancomycin. I will try to hold off on further dosing after the initial dose. 2. History of Enterococcus urinary tract infection recently. 3. Coagulopathy. No active bleeding noted at this time. 4. History of cerebrovascular accident with right hemiparesis. 5. Elevated liver enzymes. 6. Hyperbilirubinemia. 7. Possibly obstructive jaundice. PLAN: Continue aggressive IV hydration. Avoid nephrotoxic agents. Repeat labs in a.m. continue empiric antibiotics. Gastroenterology is on consult. MMODL / IJN: [id number] /
[2018-01-27] MEDS ORDERED: METOPROLOL TARTRATE 25 MG TAB PO SCH (21:00)
[2018-01-27 23:56] LABS: Glucose,Whole Blood 128 mg/dL (75-99)
[2018-01-28] MEDS: SODIUM CHLORIDE 0.9% 1,000 ML IV SCH ×2 (00:08→10:14)
[2018-01-28] MEDS: DILTIAZEM 50 MG in SODIUM CHLORIDE 0.9% 40 ML IV SCH ×5 (00:08→20:35)
[2018-01-28 05:56] LABS: Glucose,Whole Blood 172 mg/dL (75-99)
[2018-01-28] MEDS ORDERED: VANCOMYCIN 1,750 MG in SODIUM CHLORIDE 0.9% 500 ML 500 ML IVPB SCH (06:00)
[2018-01-28 06:08] LABS: Anisocytosis Slight; Basophils % (A) 0 %; Eosinophils % (A) 0 %; HCT 43.9 % (34.0-46.0); HGB 13.6 gm/dL (11.4-16.0); Hypochromasia Moderate; Lymphocytes # (A) 1.2 k/uL (1.0-4.8); Lymphocytes % (A) 8 %; MCH 30.3 pg (25.0-35.0); MCV 97.9 fL (80.0-100.0); Macrocytosis Slight; Mean Platelet Volume 8.4; Monocytes % (A) 7 %; Neutrophils # (A) 11.9 k/uL (1.3-7.7); Neutrophils % (A) 83 %; Platelet Count 200 k/uL (150-450); RBC 4.48 m/uL (3.80-5.40); RDW 17.8 % (11.5-15.5); WBC 14.4 k/uL (3.8-10.6)
[2018-01-28 06:12] LABS: INR 3.2 (<1.2); Prothrombin Time 28.7 sec (9.0-12.0)
[2018-01-28] MEDS: LEVOTHYROXINE 25 MCG TAB PO SCH (06:19)
[2018-01-28 06:38] LABS: Calcium 8.3 mg/dL (8.4-10.2); Potassium 4.7 mmol/L (3.5-5.1); Total Bilirubin 5.1 mg/dL (0.2-1.3); Total Protein 5.6 g/dL (6.3-8.2)
[2018-01-28] MEDS: NOREPINEPHRINE 4 MG in SODIUM CHLORIDE 0.9% 250 ML IV SCH ×2 (07:50→14:42)
[2018-01-28 08:17] LABS: Glucose,Whole Blood 133 mg/dL (75-99)
[2018-01-28] MEDS: CEFEPIME 2 GM in SODIUM CHLORIDE 0.9% 50 ML IVPB SCH ×2 (08:40→20:37)
[2018-01-28] MEDS: METOPROLOL TARTRATE 50 MG TAB PO SCH (08:40)
[2018-01-28] MEDS: IPRATROPIUM-ALBUTEROL 3 ML NEB INHALATION SCH ×4 (08:41→19:55)
[2018-01-28] MEDS: PANTOPRAZOLE 40 MG/10 ML VIAL IVP SCH ×2 (08:41→20:37)
[2018-01-28] MEDS ORDERED: FUROSEMIDE 10 MG/ML 4 ML VIAL IV STA (10:01)
[2018-01-28 10:36] LABS: Iron Saturation 4.38 (12.00-45.00)
[2018-01-28 11:06] LABS: Hemoglobin A1C 6.9 % (4.0-6.0)
[2018-01-28 11:53] LABS: Glucose,Whole Blood 149 mg/dL (75-99)
--- NOTE | 2018-01-28 11:56 | P.PN ---
Subjective Patient continues in intensive care unit with hypotension noted to have generalized anasarca. Patient has gallstones with dilated gallbladder Objective - Vital Signs Vital signs: Vital Signs Temp 97.3 F L 01/28/18 08:00 Pulse 97 01/28/18 11:43 Resp 24 01/28/18 11:15 BP 74/55 01/28/18 11:15 Pulse Ox 94 L 01/28/18 11:15 Intake & Output 01/27/18 01/28/18 01/28/18 18:59 06:59 18:59 Intake Total 4476.500 0073.172 1694.75 Output Total 278 510 290 Balance 4198.500 262.967 0388.75 Weight 116.7 kg Intake: IV 4185 900 1068 .9 3625 900 350 Cefepime 2 gm In Sodium 50 50 Chloride 0.9% 50 ml @ 100 mls/hr IVPB Q12HR [facility] Rx #:[id number] Diltiazem 50 mg In Sodium 10 Chloride 0.9% 40 ml @ 10 MG/HR 10 mls/hr IV .Q5H [facility] Rx#:[id number] Vancomycin 2,000 mg In 500 668 Sodium Chloride 0.9% 500 ml @ 167 mls/hr IVPB ONCE ONE Rx#:[id number] Intake, IV Titration 291.500 483.583 49.75 Amount Diltiazem 50 mg In Sodium 41.5 51.333 49.75 Chloride 0.9% 40 ml @ 10 MG/HR 10 mls/hr IV .Q5H [facility] Rx#:[id number] Norepinephrine 4 mg In 250.000 432.25 Sodium Chloride 0.9% 250 ml @ Titrate IV .Q0M [facility] Rx#:[id number] Oral 280 Output: Urine 278 510 290 Other: Voiding Method Indwelling Catheter Indwelling Catheter - Constitutional General appearance: Present: obese - EENT Eyes: Present: PERRLA Ears: bilateral: normal - Neck Neck: Present: normal ROM - Respiratory Respiratory: bilateral: CTA - Cardiovascular Rhythm: regular - Gastrointestinal General gastrointestinal: Present: soft - Integumentary Integumentary Comment(s): Erythema to lower extremities Integumentary: Present: cellulitis, normal - Musculoskeletal Musculoskeletal: Present: generalized weakness, right sided weakness - Psychiatric Psychiatric Comment(s): Patient has a expressive aphasia - Labs CBC & Chem 7: 10/08/18 05:10 01/28/18 05:10 Labs: Abnormal Lab Results - Last 24 Hours (Table) 01/26/18 01/27/18 01/27/18 Range/Units 18:48 05:44 11:57 WBC (3.8-10.6) k/uL RDW (11.5-15.5) % Neutrophils # (1.3-7.7) k/uL PT 52.2 H (9.0-12.0) sec INR 5.7 H* (<1.2) Sodium (137-145) mmol/L Chloride (98-107) mmol/L BUN (7-17) mg/dL Creatinine (0.52-1.04) mg/dL Glucose (74-99) mg/dL POC Glucose (mg/dL) (75-99) mg/dL Hemoglobin A1c 6.9 H (4.0-6.0) % Calcium (8.4-10.2) mg/dL Iron 13 L (50-170) ug/dL Iron Saturation 4.38 L (12.00-45.00) Total Bilirubin (0.2-1.3) mg/dL AST (14-36) U/L ALT (9-52) U/L Alkaline Phosphatase (38-126) U/L Total Protein (6.3-8.2) g/dL Albumin (3.5-5.0) g/dL 01/27/18 01/27/18 01/28/18 Range/Units 15:39 23:54 05:10 WBC 14.4 H (3.8-10.6) k/uL RDW 17.8 H (11.5-15.5) % Neutrophils # 11.9 H (1.3-7.7) k/uL PT (9.0-12.0) sec INR (<1.2) Sodium (137-145) mmol/L Chloride (98-107) mmol/L BUN (7-17) mg/dL Creatinine (0.52-1.04) mg/dL Glucose (74-99) mg/dL POC Glucose (mg/dL) 126 H 128 H (75-99) mg/dL Hemoglobin A1c (4.0-6.0) % Calcium (8.4-10.2) mg/dL Iron (50-170) ug/dL Iron Saturation (12.00-45.00) Total Bilirubin (0.2-1.3) mg/dL AST (14-36) U/L ALT (9-52) U/L Alkaline Phosphatase (38-126) U/L Total Protein (6.3-8.2) g/dL Albumin (3.5-5.0) g/dL 01/28/18 01/28/18 01/28/18 Range/Units 05:10 05:10 05:54 WBC (3.8-10.6) k/uL RDW (11.5-15.5) % Neutrophils # (1.3-7.7) k/uL PT 28.7 H (9.0-12.0) sec INR 3.2 H (<1.2) Sodium 132 L (137-145) mmol/L Chloride 96 L (98-107) mmol/L BUN 53 H (7-17) mg/dL Creatinine 1.40 H (0.52-1.04) mg/dL Glucose 137 H (74-99) mg/dL POC Glucose (mg/dL) 172 H (75-99) mg/dL Hemoglobin A1c (4.0-6.0) % Calcium 8.3 L (8.4-10.2) mg/dL Iron (50-170) ug/dL Iron Saturation (12.00-45.00) Total Bilirubin 5.1 H (0.2-1.3) mg/dL AST 193 H (14-36) U/L ALT 160 H (9-52) U/L Alkaline Phosphatase 187 H (38-126) U/L Total Protein 5.6 L (6.3-8.2) g/dL Albumin 3.0 L (3.5-5.0) g/dL 01/28/18 Range/Units 08:14 WBC (3.8-10.6) k/uL RDW (11.5-15.5) % Neutrophils # (1.3-7.7) k/uL PT (9.0-12.0) sec INR (<1.2) Sodium (137-145) mmol/L Chloride (98-107) mmol/L BUN (7-17) mg/dL Creatinine (0.52-1.04) mg/dL Glucose (74-99) mg/dL POC Glucose (mg/dL) 133 H (75-99) mg/dL Hemoglobin A1c (4.0-6.0) % Calcium (8.4-10.2) mg/dL Iron (50-170) ug/dL Iron Saturation (12.00-45.00) Total Bilirubin (0.2-1.3) mg/dL AST (14-36) U/L ALT (9-52) U/L Alkaline Phosphatase (38-126) U/L Total Protein (6.3-8.2) g/dL Albumin (3.5-5.0) g/dL Microbiology - Last 24 Hours (Table) 01/27/18 00:30 Blood Culture - Preliminary Blood No Growth after 24 hours 01/26/18 23:54 Urine Culture - Preliminary Urine,Voided - Imaging and Cardiology Chest x-ray: report reviewed CT Scan - head: report reviewed Assessment and Plan Plan: Assessment Mental status changes acute metabolic encephalopathy secondary to hypoglycemia Elevated bilirubin Atrial fibrillation with RVR Hypertension acute renal failure Hyponatremia Hyperkalemia Coumadin coagulopathy History of congestive heart failure COPD history of CVA with right-sided hemiparesis and expressive dysphasia GERD hyperlipidemia Gallstones with dilated gallbladder Aortic stenosis Secondary pulmonary hypertension Lower extremity cellulitis Obesity with BMI of 36.8 Hypotension Plan Continue consultation with Dr. Rivera heavy media operator pulmonology gastroenterology surgery infectious disease
[2018-01-28 12:03] LABS: Hepatitis A Antibody IgM Non-Reactive (Non-Reactive); Hepatitis B Core IgM Non-Reactive (Non-Reactive)
[2018-01-28] MEDS: FOLIC ACID 1 MG TAB PO SCH (12:05)
[2018-01-28] MEDS: INSULIN ASPART 100 UNIT/ML 1 ML 10 ML VIAL SQ SCH ×3 (12:05→20:38)
[2018-01-28] MEDS: MULTIVITAMINS, THERA 1 EACH TAB PO SCH (12:05)
[2018-01-28] MEDS: THIAMINE 100 MG TAB PO SCH (12:05)
--- NOTE | 2018-01-28 12:12 | P.PN ---
Subjective Progress Note Date: 01/28/18 Principal diagnosis: Acute sepsis and septic shock secondary to cellulitis and possibly from recurrent urinary tract infection with enterococcus. This is a 67-year-old female patient with previous history of CVA right-sided with expressive aphasia and addition to COPD, chronic atrial fibrillation, CHF with a dysfunction, recurrent cellulitis of the right lower extremity, recurrent urine checked infection with enterococcus he showing klebsiella species in addition to hypertension and hyperlipidemia. This patient came in yesterday from [facility] with hypoglycemia, Coumadin toxicity, acute kidney injury, altered mentation diminished level of consciousness. Her baseline is awake and communicating via saying yes and no and using different signs. I was told that yesterday her mental status was down and she got admitted to the medical floor where she was found to be hypoglycemic with a blood sugar of 30. The patient was also found to be hypotensive. The hypoglycemia was treated. The patient got 500 disease of normal saline bolus and following that the patient got transferred to the intensive care unit and she was placed on pressors through an external jugular line in her right neck. Currently she is on norepinephrine infusion at 10 mics. She is a bit more responsive and alert. CAT scan of the brain was done and it showed encephalomalacia and old large left middle cerebral artery infarct with multiple lacunar infarcts unchanged compared to her prior evaluations. Patient was given 2 mg of vitamin K and INR dropped down to 6.4. The patient was given IV Rocephin as an empiric antibiotic coverage. UA was suggestive of recurrent UTI. The patient has no active cellulitis in the right lower extremity. She is in atrial fibrillation. She is not rapid ventricular response and the heart rate is around 120. Nevertheless, since she came up to the ICU, she has become much more responsive. Typically stakes insulin and metformin for her blood sugars. Of note, abnormalities in her LFTs. Bilirubin AST and ALP are quite elevated. Ultrasound of the gallbladder showed a dilated gallbladder with gallstones and echogenic bile consistent with acute and chronic cholecystitis. Gallbladder measured 6 cm in size. Limited evaluation of the liver showed no evidence of any liver mass. Note that dilated ducts. Minimal amount of ascites. Right kidney shows no evidence of any hydronephrosis. Reevaluated today on 01/28/2018, patient remains relatively hypotensive, requiring 2 g of norepinephrine, she remains tachycardic, in atrial fibrillation with RVR, remains on Cardizem at 10 mg per hour. Remains on antibiotics for her presumptive sepsis and septic shock. She has abnormal renal functioning with BUN of 53 creatinine 1.40, improved over the last 2 days. Continues to have leukocytosis with WBC count of 14.4, hemoglobin is 13.6 , INR is 3.2. Continues to have elevated liver enzymes with AST of 193 ALT 160 and alkaline phosphatase of 187. Remains on cefepime and vancomycin for presumptive sepsis. And septic shock. Patient is otherwise relatively asymptomatic, denies any headache no blurred vision no dizziness no chest pain no cough no wheezing. Objective - Vital Signs Vital signs: Vital Signs Temp 97.3 F L 01/28/18 08:00 Pulse 77 01/28/18 11:55 Resp 24 01/28/18 11:15 BP 74/55 01/28/18 11:15 Pulse Ox 94 L 01/28/18 11:15 Intake & Output 01/27/18 01/28/18 01/28/18 18:59 06:59 18:59 Intake Total 4476.500 8689.528 9896.75 Output Total 278 510 290 Balance 4198.500 259.157 8410.75 Weight 116.7 kg Intake: IV 4185 900 1068 .9 3625 900 350 Cefepime 2 gm In Sodium 50 50 Chloride 0.9% 50 ml @ 100 mls/hr IVPB Q12HR [facility] Rx #:[id number] Diltiazem 50 mg In Sodium 10 Chloride 0.9% 40 ml @ 10 MG/HR 10 mls/hr IV .Q5H [facility] Rx#:[id number] Vancomycin 2,000 mg In 500 668 Sodium Chloride 0.9% 500 ml @ 167 mls/hr IVPB ONCE ONE Rx#:[id number] Intake, IV Titration 291.500 483.583 49.75 Amount Diltiazem 50 mg In Sodium 41.5 51.333 49.75 Chloride 0.9% 40 ml @ 10 MG/HR 10 mls/hr IV .Q5H [facility] Rx#:[id number] Norepinephrine 4 mg In 250.000 432.25 Sodium Chloride 0.9% 250 ml @ Titrate IV .Q0M [facility] Rx#:[id number] Oral 280 Output: Urine 278 510 290 Other: Voiding Method Indwelling Catheter Indwelling Catheter - Exam Physical Exam: Revealed a 67-year-old female, in no distress, seems to be appropriate, follows instructions. However she is aphasic. Head: Atraumatic, normocephalic, moist mucous membranes noted. HEENT:[Neck is supple.] [No neck masses.] [No thyromegaly.] [No JVD.] PERRLA, EOMI, no icterus. Chest: [Minimal crackles at the bases, no rhonchi no wheezes. Symmetrical chest expansion. Cardiac Exam: [Irregular irregular rhythm. Normal S1 and S2, no S3 gallop, no murmur.] Abdomen: [Soft, nontender, no megaly, no rebound, no guarding, normal bowel sounds.] Extremities: Chronic edema and discoloration of lower extremities noted bilaterally, related to chronic and recurrent cellulitis. No open wounds noted. Neurological Exam: Expressive aphasia noted, right-sided hemiplegia is noted, some spasticity on the right side is also noted. Lymphatics: No lymphadenopathy. Skin: As noted above describing lower extremities findings. - Labs CBC & Chem 7: 01/28/18 05:10 01/28/18 05:10 Labs: Abnormal Lab Results - Last 24 Hours (Table) 01/26/18 01/27/18 01/27/18 Range/Units 18:48 05:44 11:57 WBC (3.8-10.6) k/uL RDW (11.5-15.5) % Neutrophils # (1.3-7.7) k/uL PT 52.2 H (9.0-12.0) sec INR 5.7 H* (<1.2) Sodium (137-145) mmol/L Chloride (98-107) mmol/L BUN (7-17) mg/dL Creatinine (0.52-1.04) mg/dL Glucose (74-99) mg/dL POC Glucose (mg/dL) (75-99) mg/dL Hemoglobin A1c 6.9 H (4.0-6.0) % Calcium (8.4-10.2) mg/dL Iron 13 L (50-170) ug/dL Iron Saturation 4.38 L (12.00-45.00) Total Bilirubin (0.2-1.3) mg/dL AST (14-36) U/L ALT (9-52) U/L Alkaline Phosphatase (38-126) U/L Total Protein (6.3-8.2) g/dL Albumin (3.5-5.0) g/dL 01/27/18 01/27/18 01/28/18 Range/Units 15:39 23:54 05:10 WBC 14.4 H (3.8-10.6) k/uL RDW 17.8 H (11.5-15.5) % Neutrophils # 11.9 H (1.3-7.7) k/uL PT (9.0-12.0) sec INR (<1.2) Sodium (137-145) mmol/L Chloride (98-107) mmol/L BUN (7-17) mg/dL Creatinine (0.52-1.04) mg/dL Glucose (74-99) mg/dL POC Glucose (mg/dL) 126 H 128 H (75-99) mg/dL Hemoglobin A1c (4.0-6.0) % Calcium (8.4-10.2) mg/dL Iron (50-170) ug/dL Iron Saturation (12.00-45.00) Total Bilirubin (0.2-1.3) mg/dL AST (14-36) U/L ALT (9-52) U/L Alkaline Phosphatase (38-126) U/L Total Protein (6.3-8.2) g/dL Albumin (3.5-5.0) g/dL 01/28/18 01/28/18 01/28/18 Range/Units 05:10 05:10 05:54 WBC (3.8-10.6) k/uL RDW (11.5-15.5) % Neutrophils # (1.3-7.7) k/uL PT 28.7 H (9.0-12.0) sec INR 3.2 H (<1.2) Sodium 132 L (137-145) mmol/L Chloride 96 L (98-107) mmol/L BUN 53 H (7-17) mg/dL Creatinine 1.40 H (0.52-1.04) mg/dL Glucose 137 H (74-99) mg/dL POC Glucose (mg/dL) 172 H (75-99) mg/dL Hemoglobin A1c (4.0-6.0) % Calcium 8.3 L (8.4-10.2) mg/dL Iron (50-170) ug/dL Iron Saturation (12.00-45.00) Total Bilirubin 5.1 H (0.2-1.3) mg/dL AST 193 H (14-36) U/L ALT 160 H (9-52) U/L Alkaline Phosphatase 187 H (38-126) U/L Total Protein 5.6 L (6.3-8.2) g/dL Albumin 3.0 L (3.5-5.0) g/dL 01/28/18 01/28/18 Range/Units 08:14 11:52 WBC (3.8-10.6) k/uL RDW (11.5-15.5) % Neutrophils # (1.3-7.7) k/uL PT (9.0-12.0) sec INR (<1.2) Sodium (137-145) mmol/L Chloride (98-107) mmol/L BUN (7-17) mg/dL Creatinine (0.52-1.04) mg/dL Glucose (74-99) mg/dL POC Glucose (mg/dL) 133 H 149 H (75-99) mg/dL Hemoglobin A1c (4.0-6.0) % Calcium (8.4-10.2) mg/dL Iron (50-170) ug/dL Iron Saturation (12.00-45.00) Total Bilirubin (0.2-1.3) mg/dL AST (14-36) U/L ALT (9-52) U/L Alkaline Phosphatase (38-126) U/L Total Protein (6.3-8.2) g/dL Albumin (3.5-5.0) g/dL Microbiology - Last 24 Hours (Table) 01/27/18 00:30 Blood Culture - Preliminary Blood No Growth after 24 hours 01/26/18 23:54 Urine Culture - Preliminary Urine,Voided Assessment and Plan Assessment: Impression: Acute sepsis and septic shock, could be secondary to urinary tract infection or could also be related to cellulitis., Cultures are pending. Antibiotics on board empirically in the form of cefepime and vancomycin. 2 acute Coumadin toxicity 3 acute hepatitis, etiology is not clear, we will continue to monitor liver enzymes. 4 acute kidney injury, improving most likely secondary to ATN secondary to sepsis and hypotension. 5 chronic atrial fibrillation with RVR. 6 History of CVA, with right-sided hemiplegia and expressive aphasia 7. Essential hypertension 8 recurrent urinary tract infection with enterococcus 9 diabetes, with episode of hypoglycemia on admission. Treated and resolved. 10 chronic obstructive pulmonary disease, presently inactive. Recommendation: Continue present treatment plan, arrange for a PICC line placement, INR remains a bit elevated at present, this could be likely done tomorrow or we could arrange for a triple-lumen catheter. Continue antibiotics , continue pressors, continue Cardizem, monitor liver enzymes closely, consider GI consultation. Patient had abnormal ultrasound showing gallstones, patient is not a good surgical candidate at least at this point. No clinical evidence of cholecystitis based on physical examination, we'll continue to monitor in the ICU. Time with Patient: Less than 30
--- NOTE | 2018-01-28 13:06 | P.GSCN ---
History of Present Illness Consult date: 01/28/18 Reason for Consult: Gallstones per CAT scan of the abdomen History of present illness: 67-year-old female being seen at the request of the attending for a surgical eval after CAT scan of the abdomen showed gallstones. Reviewing the computed tomography scan report in summary was a limited exam without IV contrast and little oral contrast showed distention of the gallbladder which was previously described on ultrasound ultrasound of the liver that was obtained on the 6 reviewing the report in summary dilated gallbladder with gallstone sludge noted echogenic bile consistent with acute and chronic cholecystitis in the emergency room total bilirubin 7.8. AST 326 ALT 128 alkaline phosphatase 190 potassium 5.6 creatinine 1.8 INR 5.7 on the seventh down to 3.2 this morning upon entering the room in the ICU patient is sitting up taking a diet family at bedside currently no abdominal pain. Remains tachycardic being followed by cardiology on IV Cardizem drip antibiotics for presumptive sepsis and septic shock. Currently on 2 mg norepinephrine from Patients being followed by multiple consulting physicians Patient initially presented to the emergency room with low blood sugars and Coumadin toxicity. Patient has prior history of a stroke with limited verbal capacity. Majority of her history is taken from reviewing prior records. Patient has a history of right CVA with right side hemiparesis expressive aphasia. Has a history of atrial fibrillation on anticoagulation, heart failure With chronic liver disease In the emergency room patient was hypotensive and transferred to the ICU for closer monitoring necessitated with fluid. Review of Systems Essentially unremarkable except as mentioned in the present illness Past Medical History Past Medical History: Atrial Fibrillation, Chest Pain / Angina, Heart Failure, COPD, CVA/TIA, GERD/Reflux, Hyperlipidemia, Hypertension, Osteoarthritis (OA), Pneumonia, Renal Disease Additional Past Medical History / Comment(s): 2002 CVA with R sided weakness arm /leg/contracted R hand and dysphasia, Afib with RVR, cardiac valve disease, DJD , occasional back pain, bronchitis, UTIs, kidney infections, anemia, head injury. 2018 CVA with right side flaccid and dysphagia, recent hospitalization for COPD exacerbation in addition to a right lower extremity cellulitis. Recent treatment for enterococcus patient septicemia. History of Any Multi-Drug Resistant Organisms: None Reported Past Surgical History: Section, Hernia Repair, Orthopedic Surgery, Tonsillectomy Additional Past Surgical History / Comment(s): Incarcerated umbilical hernia repair/omentum resection, X2, L tibial IM nailing, teeth extractions. Past Anesthesia/Blood Transfusion Reactions: No Reported Reaction Past Psychological History: No Psychological Hx Reported Additional Psychological History / Comment(s): Lives in a senior apartment. Her daughter does help. She is a reformed smoker. No experience. No animals in the home Smoking Status: Former smoker Past Alcohol Use History: None Reported Additional Past Alcohol Use History / Comment(s): has smoked off and on since age 14 Past Drug Use History: None Reported - Past Family History Father Family Medical History: No Reported History Additional Family Medical History / Comment(s): FATHER WAS HEALTHY AND LIVED TO BE 96YRS OLD. Mother Family Medical History: Cancer Additional Family Medical History / Comment(s): MOTHER HAD BREAST CANCER. Medications and Allergies Home Medications Medication Instructions Recorded Confirmed Type Tiotropium Mineral [Spiriva] 1 cap INHALATION RT-DAILY 05/01/17 01/27/18 History Levothyroxine Sodium [Synthroid] 25 mcg PO DAILY 12/18/17 01/27/18 History Acetaminophen Tab [Tylenol] 650 mg PO Q6HR PRN tab 12/23/17 01/27/18 Rx Budesonide-Formot 160-4.5 Mcg 2 puff INHALATION RT-BID #1 puff 12/23/17 Rx [Symbicort 160-4.5 Mcg Inhaler] Metoprolol Tartrate [Lopressor] 25 mg PO HS #30 tab 12/23/17 01/27/18 Rx Budesonide [Pulmicort] 1 mg INHALATION RT-BID #60 nebu 01/03/18 01/27/18 Rx Formoterol Fumarate [Perforomist] 20 mcg INHALATION RT-BID #60 nebu 01/03/1811/07 Rx Insulin Detemir [Levemir] 20 unit SQ HS #1 syr 01/03/18 01/27/18 Rx Ipratropium-Albuterol Nebulize 3 ml INHALATION RT-QID #120 01/03/18 01/27/18 Rx [Duoneb 0.5 mg-3 mg/3 ml Soln] ampul.neb Lisinopril [Zestril] 2.5 mg PO DAILY #30 tab 01/08/18 01/27/18 Rx Furosemide [Lasix] 20 mg PO DAILY 01/27/18 01/27/18 History metFORMIN HCL [Glucophage] 500 mg PO DAILY 01/27/18 01/27/18 History Allergies Allergy/AdvReac Type Severity Reaction Status Date / Time No Known Allergies Allergy Verified 01/26/18 20:00 Surgical - Exam Vital Signs Pulse Resp BP Pulse Ox 41 L 20 91/60 99 01/26/18 18:24 01/26/18 18:24 01/26/18 18:24 01/26/18 18:24 GENERAL APPEARANCE: 67 year old female in no acute distres sitting up in bed taking a diet is aphasic will follow simple instructions VITAL SIGNS: reviewed HEENT: Head is normocephalic and atraumatic. Pupils are equal and reactive. The nares are patent. Oropharynx is clear without lesions. NECK: Supple without lymphadenopathy. Traches midline. HEART: S1, S2. irregular mildly tachycardic heart rate 110 LUNGS: No crackles or wheezes are heard. ABDOMEN: Soft,obese nontender, nondistended with good bowel sounds. No peritoneal signs. No palpable organomegaly or masses. indwelling Bermudez catheter in place no stool no reports of nausea vomiting EXTREMITIES: chronic edema to the bilateral lower extremities with chronic discoloration bilaterally. No open wounds right side hemiplegia Neurological sitting up in bed is awake and alert has chronic expressive with right side hemiplegia following simple command alert Results - Labs 01/28/18 05:10 01/28/18 05:10 Abnormal Lab Results - Last 24 Hours (Table) 01/26/18 01/27/18 01/27/18 Range/Units 18:48 05:44 15:39 WBC (3.8-10.6) k/uL RDW (11.5-15.5) % Neutrophils # (1.3-7.7) k/uL PT (9.0-12.0) sec INR (<1.2) Sodium (137-145) mmol/L Chloride (98-107) mmol/L BUN (7-17) mg/dL Creatinine (0.52-1.04) mg/dL Glucose (74-99) mg/dL POC Glucose (mg/dL) 126 H (75-99) mg/dL Hemoglobin A1c 6.9 H (4.0-6.0) % Calcium (8.4-10.2) mg/dL Iron 13 L (50-170) ug/dL Iron Saturation 4.38 L (12.00-45.00) Total Bilirubin (0.2-1.3) mg/dL AST (14-36) U/L ALT (9-52) U/L Alkaline Phosphatase (38-126) U/L Total Protein (6.3-8.2) g/dL Albumin (3.5-5.0) g/dL 01/27/18 01/28/18 01/28/18 Range/Units 23:54 05:10 05:10 WBC 14.4 H (3.8-10.6) k/uL RDW 17.8 H (11.5-15.5) % Neutrophils # 11.9 H (1.3-7.7) k/uL PT 28.7 H (9.0-12.0) sec INR 3.2 H (<1.2) Sodium (137-145) mmol/L Chloride (98-107) mmol/L BUN (7-17) mg/dL Creatinine (0.52-1.04) mg/dL Glucose (74-99) mg/dL POC Glucose (mg/dL) 128 H (75-99) mg/dL Hemoglobin A1c (4.0-6.0) % Calcium (8.4-10.2) mg/dL Iron (50-170) ug/dL Iron Saturation (12.00-45.00) Total Bilirubin (0.2-1.3) mg/dL AST (14-36) U/L ALT (9-52) U/L Alkaline Phosphatase (38-126) U/L Total Protein (6.3-8.2) g/dL Albumin (3.5-5.0) g/dL 01/28/18 01/28/18 01/28/18 Range/Units 05:10 05:54 08:14 WBC (3.8-10.6) k/uL RDW (11.5-15.5) % Neutrophils # (1.3-7.7) k/uL PT (9.0-12.0) sec INR (<1.2) Sodium 132 L (137-145) mmol/L Chloride 96 L (98-107) mmol/L BUN 53 H (7-17) mg/dL Creatinine 1.40 H (0.52-1.04) mg/dL Glucose 137 H (74-99) mg/dL POC Glucose (mg/dL) 172 H 133 H (75-99) mg/dL Hemoglobin A1c (4.0-6.0) % Calcium 8.3 L (8.4-10.2) mg/dL Iron (50-170) ug/dL Iron Saturation (12.00-45.00) Total Bilirubin 5.1 H (0.2-1.3) mg/dL AST 193 H (14-36) U/L ALT 160 H (9-52) U/L Alkaline Phosphatase 187 H (38-126) U/L Total Protein 5.6 L (6.3-8.2) g/dL Albumin 3.0 L (3.5-5.0) g/dL 01/28/18 Range/Units 11:52 WBC (3.8-10.6) k/uL RDW (11.5-15.5) % Neutrophils # (1.3-7.7) k/uL PT (9.0-12.0) sec INR (<1.2) Sodium (137-145) mmol/L Chloride (98-107) mmol/L BUN (7-17) mg/dL Creatinine (0.52-1.04) mg/dL Glucose (74-99) mg/dL POC Glucose (mg/dL) 149 H (75-99) mg/dL Hemoglobin A1c (4.0-6.0) % Calcium (8.4-10.2) mg/dL Iron (50-170) ug/dL Iron Saturation (12.00-45.00) Total Bilirubin (0.2-1.3) mg/dL AST (14-36) U/L ALT (9-52) U/L Alkaline Phosphatase (38-126) U/L Total Protein (6.3-8.2) g/dL Albumin (3.5-5.0) g/dL Microbiology - Last 24 Hours (Table) 01/26/18 23:54 Urine Culture - Final Urine,Voided 01/27/18 00:30 Blood Culture - Preliminary Blood No Growth after 24 hours Diabetes panel 01/26/18 01/28/18 Range/Units 18:48 05:10 Sodium 132 L (137-145) mmol/L Potassium 4.7 (3.5-5.1) mmol/L Chloride 96 L (98-107) mmol/L Carbon Dioxide 24 (22-30) mmol/L BUN 53 H (7-17) mg/dL Creatinine 1.40 H (0.52-1.04) mg/dL Glucose 137 H (74-99) mg/dL Hemoglobin A1c 6.9 H (4.0-6.0) % Calcium 8.3 L (8.4-10.2) mg/dL AST 193 H (14-36) U/L ALT 160 H (9-52) U/L Alkaline Phosphatase 187 H (38-126) U/L Total Protein 5.6 L (6.3-8.2) g/dL Albumin 3.0 L (3.5-5.0) g/dL Calcium panel 01/28/18 Range/Units 05:10 Calcium 8.3 L (8.4-10.2) mg/dL Albumin 3.0 L (3.5-5.0) g/dL Pituitary panel 01/28/18 Range/Units 05:10 Sodium 132 L (137-145) mmol/L Potassium 4.7 (3.5-5.1) mmol/L Chloride 96 L (98-107) mmol/L Carbon Dioxide 24 (22-30) mmol/L BUN 53 H (7-17) mg/dL Creatinine 1.40 H (0.52-1.04) mg/dL Glucose 137 H (74-99) mg/dL Calcium 8.3 L (8.4-10.2) mg/dL Adrenal panel 01/28/18 Range/Units 05:10 Sodium 132 L (137-145) mmol/L Potassium 4.7 (3.5-5.1) mmol/L Chloride 96 L (98-107) mmol/L Carbon Dioxide 24 (22-30) mmol/L BUN 53 H (7-17) mg/dL Creatinine 1.40 H (0.52-1.04) mg/dL Glucose 137 H (74-99) mg/dL Calcium 8.3 L (8.4-10.2) mg/dL Total Bilirubin 5.1 H (0.2-1.3) mg/dL AST 193 H (14-36) U/L ALT 160 H (9-52) U/L Alkaline Phosphatase 187 H (38-126) U/L Total Protein 5.6 L (6.3-8.2) g/dL Albumin 3.0 L (3.5-5.0) g/dL Assessment and Plan Assessment: Impression Present on admission acute sepsis with septic shock suspect due to UTI infectious disease following Present on admission acute Coumadin toxicity Chronic persistent atrial fibrillation with episodes of rapid ventricular response A prior CVA resulting in right side hemiplegia and expressive aphasia CAT scan of the abdomen pelvis without contrast reviewing the report no free air distention of the gallbladder Ultrasound of the abdomen showed dilated gallbladder with gallstone echogeni bile consistent with acute and chronic cholecystitisc Ultrasound the liver minimal amount of ascites obesity BMI 40 Present on admission elevated liver enzymes Plan No evidence of an acute surgical abdomen at this time Continue low-fat diet Continue with the ICU management per the reactor kettle operator defer to DVT GI prophylaxis We'll follow with you Continue recommendations by GI service Surgical consultation note dictated for dr baker The above impression and plan of care have been discussed and directed by signing physician. Mary Montanez nurse practitioner acting as scribe for signing physician.
--- NOTE | 2018-01-28 13:29 | PN ---
PROGRESS NOTE Patient is seen for followup for acute kidney injury which was mainly associated with hypotension hypoperfusion. The patient is off of Levophed this morning. IV fluids are at about 75 mL an hour. Urine output has been at 45-70 mL an hour. PHYSICAL EXAMINATION: Blood pressure is 105/73, heart rate 112 per minute. Patient is afebrile. Examination of the heart S1, S2. Examination lungs decreased breath sounds at bases. Abdomen is soft, nontender, obese. Examination lower extremity shows bilateral cellulitis with chronic edema. DIRECTOR OF MECHANICAL ENGINEERING exam is grossly intact. LABS: Sodium 132, potassium 4.7, chloride 96, BUN 53, serum creatinine 1.4, hemoglobin 13.6 g/dL. ASSESSMENT: 1. Acute kidney injury secondary to hypotension hypoperfusion currently improved. 2. Urinary tract infection. Urine culture currently not growing anything yet. The patient is maintained on antibiotics. Consider discontinuation of vancomycin renal failure. 3. Chronic lower extremity cellulitis. 4. Swelling right upper extremity possibly related to the IV, rule out DVT if it progresses. 5. History of enterococcus urinary tract infection last admission. 6. Hyperbilirubinemia and obstructive jaundice, being followed by Gastroenterology. PLAN: Continue IV fluids but decrease the rate to about 50 mL an hour. I will give her Lasix x1. Check a chest x-ray. MMODL / IJN: [id number] /
--- NOTE | 2018-01-28 13:36 | XR ---
EXAMINATION TYPE: XR chest 1V DATE OF EXAM: 01/28/2018 COMPARISON: 01/05/2018 HISTORY: Congestive heart failure and hypoglycemia. History of atrial fibrillation. TECHNIQUE: Single frontal view of the chest is obtained. FINDINGS: There is no focal air space opacity, pleural effusion, or pneumothorax seen. The cardiac silhouette size is markedly enlarged. Copious soft tissues partially obscure the lower lungs is seen on the prior and artificially blunt the costophrenic angles. The osseous structures are intact. IMPRESSION: Unchanged marked cardiomegaly. No acute pulmonary process.
--- NOTE | 2018-01-28 14:50 | P.CONS ---
History of Present Illness - Reason for Consult Consult date: 01/28/18 Swelling and redness in the lower right extremity - History of Present Illness 67-year-old female known to ID service as she has been treated for right lower extremity cellulitis in the past. 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 She has currently living in an apartment on her own and son is staying with her to help her with transfers. She presented to [facility] emergency center on January 26 due to decreased mental status and her blood sugar was low at home. She is found to be afebrile but tachycardic with A. fib RVR and hypotensive. Her white count was 14.5, blood sugar 39, hemoglobin A1c 6.9. Liver function tests were elevated. Urinalysis was turbid with leukoesterase large, WBC 64 bacteria many. [facility] with hypoglycemia and liver failure and renal failure and subsequently blood pressure worsened and she ended up transferring to ICU status post IV fluid resuscitation. She had a CAT scan of the brain that showed encephalomalacia and old large left middle cerebral artery infarct with multiple lacunar infarcts unchanged. Regarding her INR of greater than 10 she was given vitamin K with improvement down to 6.4. She was initially started on IV antibiotics with Rocephin subsequently on cefepime and vancomycin. Patient has been seen by GI with plan for MRCP and MRI of the liver either today or tomorrow. Radiology is following for chronic atrial fibrillation with RVR currently on Cardizem drip. Dr. Rivera is following for acute kidney injury and ATN. Patient has previous urine culture with enterococcus and previous right leg culture for Klebsiella. On this visit , blood culture showing no growth at 24 hours. Urine culture in progress. Acute hepatitis panel is negative. Review of Systems All systems: negative Constitutional: Reports fatigue, Reports lethargy, Reports malaise, Reports poor appetite, Reports weakness, Denies chills, Denies fever Eyes: denies blurred vision, denies pain Ears, nose, mouth and throat: Denies headache, Denies sore throat Cardiovascular: Reports leg edema, Denies chest pain, Denies dyspnea on exertion , Denies lightheadedness, Denies shortness of breath, Denies syncope Respiratory: Denies cough, Denies cough with sputum, Denies dyspnea, Denies excessive sputum, Denies hemoptysis, Denies wheezing Gastrointestinal: Denies abdominal pain, Denies diarrhea, Denies nausea, Denies vomiting Genitourinary: Denies dysuria, Denies hematuria, Denies urgency, Denies urinary frequency Musculoskeletal: Denies frequent falls, Denies myalgias Integumentary: Reports color changes, Reports darkening of skin, Reports wounds , Denies pruritus, Denies rash Neurological: Denies numbness, Denies weakness Psychiatric: Denies anxiety, Denies depression Endocrine: Denies fatigue, Denies weight change Past Medical History Past Medical History: Atrial Fibrillation, Chest Pain / Angina, Heart Failure, COPD, CVA/TIA, GERD/Reflux, Hyperlipidemia, Hypertension, Osteoarthritis (OA), Pneumonia, Renal Disease Additional Past Medical History / Comment(s): 2002 CVA with R sided weakness arm /leg/contracted R hand and dysphasia, Afib with RVR, cardiac valve disease, DJD , occasional back pain, bronchitis, UTIs, kidney infections, anemia, head injury. 2018 CVA with right side flaccid and dysphagia, recent hospitalization for COPD exacerbation in addition to a right lower extremity cellulitis. Recent treatment for enterococcus patient septicemia. History of Any Multi-Drug Resistant Organisms: None Reported Past Surgical History: Section, Hernia Repair, Orthopedic Surgery, Tonsillectomy Additional Past Surgical History / Comment(s): Incarcerated umbilical hernia repair/omentum resection, X2, L tibial IM nailing, teeth extractions. Past Anesthesia/Blood Transfusion Reactions: No Reported Reaction Past Psychological History: No Psychological Hx Reported Additional Psychological History / Comment(s): Lives in a senior apartment. Her daughter does help. She is a reformed smoker. No experience. No animals in the home Smoking Status: Former smoker Past Alcohol Use History: None Reported Additional Past Alcohol Use History / Comment(s): has smoked off and on since age 14 Past Drug Use History: None Reported - Past Family History Father Family Medical History: No Reported History Additional Family Medical History / Comment(s): FATHER WAS HEALTHY AND LIVED TO BE 96YRS OLD. Mother Family Medical History: Cancer Additional Family Medical History / Comment(s): MOTHER HAD BREAST CANCER. Medications and Allergies Home Medications Medication Instructions Recorded Confirmed Type Tiotropium Sixes [Spiriva] 1 cap INHALATION RT-DAILY 05/01/17 01/27/18 History Levothyroxine Sodium [Synthroid] 25 mcg PO DAILY 12/18/17 01/27/18 History Acetaminophen Tab [Tylenol] 650 mg PO Q6HR PRN tab 12/23/17 01/27/18 Rx Budesonide-Formot 160-4.5 Mcg 2 puff INHALATION RT-BID #1 puff 12/23/17 Rx [Symbicort 160-4.5 Mcg Inhaler] Metoprolol Tartrate [Lopressor] 25 mg PO HS #30 tab 12/23/17 01/27/18 Rx Budesonide [Pulmicort] 1 mg INHALATION RT-BID #60 nebu 01/03/18 01/27/18 Rx Formoterol Fumarate [Perforomist] 20 mcg INHALATION RT-BID #60 nebu 01/03/1811/07 Rx Insulin Detemir [Levemir] 20 unit SQ HS #1 syr 01/03/18 01/27/18 Rx Ipratropium-Albuterol Nebulize 3 ml INHALATION RT-QID #120 01/03/18 01/27/18 Rx [Duoneb 0.5 mg-3 mg/3 ml Soln] ampul.neb Lisinopril [Zestril] 2.5 mg PO DAILY #30 tab 01/08/18 01/27/18 Rx Furosemide [Lasix] 20 mg PO DAILY 01/27/18 01/27/18 History metFORMIN HCL [Glucophage] 500 mg PO DAILY 01/27/18 01/27/18 History Allergies Allergy/AdvReac Type Severity Reaction Status Date / Time No Known Allergies Allergy Verified 01/26/18 20:00 Physical Exam Vitals: Vital Signs Temp Pulse Resp BP Pulse Ox 01/28/18 13:00 88 29 H 90/43 94 L 01/28/18 12:45 84 19 74/58 96 01/28/18 12:30 96 20 83/54 95 01/28/18 12:15 107 H 28 H 73/54 96 01/28/18 12:00 97.6 F 112 H 36 H 77/63 95 01/28/18 11:55 77 01/28/18 11:45 89 21 85/45 95 01/28/18 11:43 97 01/28/18 11:30 91 27 H 55/48 94 L 01/28/18 11:15 109 H 24 74/55 94 L 01/28/18 11:00 112 H 26 H 105/73 95 01/28/18 10:45 114 H 24 82/59 95 01/28/18 10:30 100 27 H 79/58 96 01/28/18 10:15 118 H 26 H 84/54 95 01/28/18 10:00 94 29 H 86/55 92 L 01/28/18 09:45 126 H 24 79/47 92 L 01/28/18 09:30 123 H 27 H 96/70 99 01/28/18 09:15 117 H 29 H 102/80 97 01/28/18 09:00 111 H 24 113/81 88 L 01/28/18 08:55 112 H 01/28/18 08:45 112 H 16 105/76 97 01/28/18 08:44 115 H 01/28/18 08:30 131 H 24 114/70 94 L 01/28/18 08:15 134 H 47 H 109/72 94 L 01/28/18 08:00 97.3 F L 126 H 45 H 119/81 95 01/28/18 07:45 125 H 51 H 119/81 95 01/28/18 07:30 127 H 50 H 132/71 95 01/28/18 07:00 125 H 22 121/72 92 L 01/28/18 06:00 96 20 125/74 95 01/28/18 05:30 116 H 18 120/74 94 L 01/28/18 05:00 112 H 22 120/74 94 L 01/28/18 04:30 110 H 16 111/72 95 01/28/18 04:00 97.7 F 106 H 23 103/67 93 L 01/28/18 03:30 123 H 19 115/77 92 L 01/28/18 03:00 129 H 18 101/73 91 L 01/28/18 02:30 123 H 25 H 99/73 95 01/28/18 02:00 126 H 20 86/62 93 L 01/28/18 01:30 108 H 17 86/62 97 01/28/18 01:00 110 H 22 86/62 96 01/28/18 00:30 119 H 21 88/68 95 01/28/18 00:03 134 H 16 88/68 95 01/28/18 00:00 97.7 F 157 H 19 88/68 96 01/27/18 23:30 124 H 17 88/68 94 L 01/27/18 23:00 132 H 28 H 88/68 94 L 01/27/18 22:30 128 H 23 95 01/27/18 22:00 161 H 33 H 110/80 95 01/27/18 21:30 139 H 18 110/80 96 01/27/18 21:00 97.6 F 132 H 16 98/61 95 01/27/18 20:49 124 H 01/27/18 20:37 118 H 01/27/18 20:30 119 H 16 91/73 97 01/27/18 20:00 119 H 20 94/58 96 01/27/18 19:30 120 H 21 93/59 96 01/27/18 19:00 122 H 24 100/61 95 01/27/18 18:50 124 H 24 100/61 96 01/27/18 18:40 126 H 23 97/76 96 01/27/18 18:30 120 H 23 97/76 96 01/27/18 18:20 130 H 24 97/76 96 01/27/18 18:10 129 H 21 102/65 97 01/27/18 18:00 132 H 21 82/63 97 01/27/18 17:50 142 H 27 H 82/63 96 01/27/18 17:40 130 H 27 H 69/52 95 01/27/18 17:30 133 H 24 98 01/27/18 17:20 119 H 15 97 01/27/18 17:10 125 H 94/62 98 01/27/18 17:00 121 H 18 89/50 98 01/27/18 16:50 118 H 98 01/27/18 16:40 121 H 99 01/27/18 16:33 114 H 01/27/18 16:30 117 H 100 01/27/18 16:22 104 H 01/27/18 16:10 103 H 85/48 98 01/27/18 16:00 96.8 F L 102 H 18 112/69 98 01/27/18 15:50 115 H 96 01/27/18 15:40 112 H 99/72 97 10/07/18 15:30 109 H 110/74 98 01/27/18 15:20 107 H 110/74 96 01/27/18 15:10 120 H 107/64 97 01/27/18 15:00 110 H 20 97 01/27/18 14:50 116 H 100/67 98 01/27/18 14:40 113 H 99/68 97 01/27/18 14:30 111 H 99/63 97 01/27/18 14:20 129 H 99/63 95 01/27/18 14:10 122 H 89/67 96 01/27/18 14:00 123 H 18 104/67 95 01/27/18 13:50 115 H 104/67 91 L 01/27/18 13:40 139 H 115/71 98 01/27/18 13:30 144 H 118/46 98 Intake and Output 01/27/18 01/28/18 01/28/18 22:59 06:59 14:59 Intake Total 806.709 0598.833 1950.001 Output Total 258 365 390 Balance 417.125 072.038 9902.001 Intake: IV 007 247 4457 .9 525 600 450 Cefepime 2 gm In Sodium 50 Chloride 0.9% 50 ml @ 100 mls/hr IVPB Q12HR [facility] Rx #:[id number] Vancomycin 2,000 mg In 668 Sodium Chloride 0.9% 500 ml @ 167 mls/hr IVPB ONCE ONE Rx#:[id number] Intake, IV Titration 150.125 449.833 102.001 Amount Diltiazem 50 mg In Sodium 41.5 51.333 49.75 Chloride 0.9% 40 ml @ 10 MG/HR 10 mls/hr IV .Q5H [facility] Rx#:[id number] Norepinephrine 4 mg In 108.625 398.5 52.251 Sodium Chloride 0.9% 250 ml @ Titrate IV .Q0M [facility] Rx#:[id number] Oral 680 Output: Urine 258 365 390 Other: Voiding Method Indwelling Catheter Indwelling Catheter Weight 116.7 kg Gen: This is a morbidly obese 67-year-old female. She is sitting up in bed and appears to be comfortable. No acute distress is noted. Patient is aphasic but able to communicate with her hands. HEENT: Head is atraumatic, normocephalic. Pupils equal, round. Sclerae is anicteric. NECK: Supple. No JVD. No lymphadenopathy. No thyromegaly. LUNGS: Clear to auscultation. No wheezes or rhonchi. No intercostal retractions. HEART: Regular rate and rhythm. No murmur. ABDOMEN: Soft. Bowel sounds are present. No masses. No tenderness. EXTREMITIES: Right upper extremity is edematous with many superficial abrasions noted. Right lower extremity has erythema and edema. Multiple superficial abrasions on her lower extremities as well from scratching. NEUROLOGICAL: Patient is awake, alert and oriented x3. Flaccid hemiaplasia on the right upper and lower extremities. Patient has expressive aphasia. Results Results: Laboratory Results WBC 14.4 k/uL (3.8-10.6) H 01/28/18 05:10 RBC 4.48 m/uL (3.80-5.40) 01/28/18 05:10 Hgb 13.6 gm/dL (11.4-16.0) 01/28/18 05:10 Hct 43.9 % (34.0-46.0) 01/28/18 05:10 MCV 97.9 fL (80.0-100.0) 01/28/18 05:10 MCH 30.3 pg (25.0-35.0) 01/28/18 05:10 MCHC 31.0 g/dL (31.0-37.0) 01/28/18 05:10 RDW 17.8 % (11.5-15.5) H 01/28/18 05:10 Plt Count 200 k/uL (150-450) 01/28/18 05:10 Neutrophils % 83 % 01/28/18 05:10 Lymphocytes % 8 % 01/28/18 05:10 Monocytes % 7 % 01/28/18 05:10 Eosinophils % 0 % 01/28/18 05:10 Basophils % 0 % 01/28/18 05:10 Neutrophils # 11.9 k/uL (1.3-7.7) H 01/28/18 05:10 Lymphocytes # 1.2 k/uL (1.0-4.8) 01/28/18 05:10 Monocytes # 1.0 k/uL (0-1.0) 01/28/18 05:10 Eosinophils # 0.0 k/uL (0-0.7) 01/28/18 05:10 Basophils # 0.0 k/uL (0-0.2) 01/28/18 05:10 Manual Slide Review Performed 01/28/18 05:10 Polychromasia Present 01/27/18 05:43 Hypochromasia Moderate 01/28/18 05:10 Anisocytosis Slight 01/28/18 05:10 Macrocytosis Slight 01/28/18 05:10 PT 28.7 sec (9.0-12.0) H 01/28/18 05:10 INR 3.2 (<1.2) H 01/28/18 05:10 APTT 31.9 sec (22.0-30.0) H 01/26/18 18:48 Sodium 132 mmol/L (137-145) L 01/28/18 05:10 Potassium 4.7 mmol/L (3.5-5.1) 01/28/18 05:10 Chloride 96 mmol/L (98-107) L 01/28/18 05:10 Carbon Dioxide 24 mmol/L (22-30) 01/28/18 05:10 Anion Gap 12 mmol/L 01/28/18 05:10 BUN 53 mg/dL (7-17) H 01/28/18 05:10 Creatinine 1.40 mg/dL (0.52-1.04) H 01/28/18 05:10 Est GFR (CKD-EPI)AfAm 45 (>60 ml/min/1.73 sqM) 01/28/18 05:10 Est GFR (CKD-EPI)NonAf 39 (>60 ml/min/1.73 sqM) 01/28/18 05:10 Glucose 137 mg/dL (74-99) H 01/28/18 05:10 POC Glucose (mg/dL) 149 mg/dL (75-99) H 01/28/18 11:52 POC Glu [employer] ID Cori Taylor 01/28/18 11:[address] Glu mg/dL 151 01/26/18 18:48 Hemoglobin A1c 6.9 % (4.0-6.0) H 01/26/18 18:48 Calcium 8.3 mg/dL (8.4-10.2) L 01/28/18 05:10 Phosphorus 4.7 mg/dL (2.5-4.5) H 01/27/18 05:44 Magnesium 2.0 mg/dL (1.6-2.3) 01/28/18 05:10 Iron 13 ug/dL (50-170) L 01/27/18 05:44 TIBC 297 ug/dL (228-460) 01/27/18 05:44 Iron Saturation 4.38 (12.00-45.00) L 01/27/18 05:44 Ferritin 125.6 ng/mL (10.0-291.0) 01/27/18 05:44 Total Bilirubin 5.1 mg/dL (0.2-1.3) H 01/28/18 05:10 AST 193 U/L (14-36) H 01/28/18 05:10 ALT 160 U/L (9-52) H 01/28/18 05:10 Alkaline Phosphatase 187 U/L (38-126) H 01/28/18 05:10 Ammonia <9 umol/L (<30) 01/27/18 05:44 Total Creatine Kinase 165 U/L (30-135) H 01/27/18 05:44 CK-MB (CK-2) 14.6 ng/mL (0.0-2.4) H 01/27/18 05:44 CK-MB (CK-2) Rel Index 8.8 01/27/18 05:44 Troponin I 0.102 ng/mL (0.000-0.034) H* 01/27/18 05:44 Total Protein 5.6 g/dL (6.3-8.2) L 01/28/18 05:10 Albumin 3.0 g/dL (3.5-5.0) L 01/28/18 05:10 Triglycerides 85 mg/dL (<150) 01/27/18 05:44 Cholesterol 87 mg/dL (<200) 01/27/18 05:44 LDL Cholesterol, Calc 55 mg/dL (0-99) 01/27/18 05:44 HDL Cholesterol 15 mg/dL (40-60) L 01/27/18 05:44 Urine Color Dark Brown 01/26/18 23:54 Urine Appearance Turbid (Clear) H 01/26/18 23:54 Urine pH 5.0 (5.0-8.0) 01/26/18 23:54 Ur Specific [place] 1.015 (1.001-1.035) 01/26/18 23:54 Urine Protein 1+ (Negative) H 01/26/18 23:54 Urine Glucose (UA) Trace (Negative) H 01/26/18 23:54 Urine Ketones Negative (Negative) 01/26/18 23:54 Urine Blood Moderate (Negative) H 01/26/18 23:54 Urine Nitrite Negative (Negative) 01/26/18 23:54 Urine Bilirubin 1+ (Negative) H 01/26/18 23:54 Urine Urobilinogen 2.0 mg/dL (<2.0) 01/26/18 23:54 Ur Leukocyte Esterase Large (Negative) H 01/26/18 23:54 Urine RBC 20 /hpf (0-5) H 01/26/18 23:54 Urine WBC 64 /hpf (0-5) H 01/26/18 23:54 Ur Squamous Epith Cells 77 /hpf (0-4) H 01/26/18 23:54 Amorphous Sediment Few /hpf (None) H 01/26/18 23:54 Urine Bacteria Many /hpf (None) H 01/26/18 23:54 Hyaline Casts 12 /lpf (0-2) H 01/26/18 23:54 Urine Mucus Rare /hpf (None) H 01/26/18 23:54 Urine Opiates Screen Not Detected (NotDetected) 01/26/18 23:54 Ur Oxycodone Screen Not Detected (NotDetected) 01/26/18 23:54 Urine Methadone Screen Not Detected (NotDetected) 01/26/18 23:54 Ur Propoxyphene Screen Not Detected (NotDetected) 01/26/18 23:54 Acetaminophen <10.0 ug/mL 01/27/18 13:37 Ur Barbiturates Screen Not Detected (NotDetected) 01/26/18 23:54 U Tricyclic Antidepress Not Detected (NotDetected) 01/26/18 23:54 Ur Phencyclidine Scrn Not Detected (NotDetected) 01/26/18 23:54 Ur Amphetamines Screen Not Detected (NotDetected) 01/26/18 23:54 U Methamphetamines Scrn Not Detected (NotDetected) 01/26/18 23:54 U Benzodiazepines Scrn Not Detected (NotDetected) 01/26/18 23:54 Urine Cocaine Screen Not Detected (NotDetected) 01/26/18 23:54 U Marijuana (THC) Screen Not Detected (NotDetected) 01/26/18 23:54 ROLF Screen NEGATIVE (NEGATIVE) 01/27/18 05:44 Hepatitis A IgM Ab Non-Reactive (Non-Reactive) 01/27/18 05:44 Hep Bs Antigen Non-Reactive (Non-Reactive) 01/27/18 05:44 Hep B Core IgM Ab Non-Reactive (Non-Reactive) 01/27/18 05:44 Hep C IgG Ab Non-Reactive (Non-Reactive) 01/27/18 05:44 CBC & Chem 7: 01/28/18 05:10 01/28/18 05:10 Labs: Abnormal Lab Results - Last 24 Hours (Table) 01/26/18 01/27/18 01/27/18 Range/Units 18:48 05:44 15:39 WBC (3.8-10.6) k/uL RDW (11.5-15.5) % Neutrophils # (1.3-7.7) k/uL PT (9.0-12.0) sec INR (<1.2) Sodium (137-145) mmol/L Chloride (98-107) mmol/L BUN (7-17) mg/dL Creatinine (0.52-1.04) mg/dL Glucose (74-99) mg/dL POC Glucose (mg/dL) 126 H (75-99) mg/dL Hemoglobin A1c 6.9 H (4.0-6.0) % Calcium (8.4-10.2) mg/dL Iron 13 L (50-170) ug/dL Iron Saturation 4.38 L (12.00-45.00) Total Bilirubin (0.2-1.3) mg/dL AST (14-36) U/L ALT (9-52) U/L Alkaline Phosphatase (38-126) U/L Total Protein (6.3-8.2) g/dL Albumin (3.5-5.0) g/dL 01/27/18 01/28/18 01/28/18 Range/Units 23:54 05:10 05:10 WBC 14.4 H (3.8-10.6) k/uL RDW 17.8 H (11.5-15.5) % Neutrophils # 11.9 H (1.3-7.7) k/uL PT 28.7 H (9.0-12.0) sec INR 3.2 H (<1.2) Sodium (137-145) mmol/L Chloride (98-107) mmol/L BUN (7-17) mg/dL Creatinine (0.52-1.04) mg/dL Glucose (74-99) mg/dL POC Glucose (mg/dL) 128 H (75-99) mg/dL Hemoglobin A1c (4.0-6.0) % Calcium (8.4-10.2) mg/dL Iron (50-170) ug/dL Iron Saturation (12.00-45.00) Total Bilirubin (0.2-1.3) mg/dL AST (14-36) U/L ALT (9-52) U/L Alkaline Phosphatase (38-126) U/L Total Protein (6.3-8.2) g/dL Albumin (3.5-5.0) g/dL 01/28/18 01/28/18 01/28/18 Range/Units 05:10 05:54 08:14 WBC (3.8-10.6) k/uL RDW (11.5-15.5) % Neutrophils # (1.3-7.7) k/uL PT (9.0-12.0) sec INR (<1.2) Sodium 132 L (137-145) mmol/L Chloride 96 L (98-107) mmol/L BUN 53 H (7-17) mg/dL Creatinine 1.40 H (0.52-1.04) mg/dL Glucose 137 H (74-99) mg/dL POC Glucose (mg/dL) 172 H 133 H (75-99) mg/dL Hemoglobin A1c (4.0-6.0) % Calcium 8.3 L (8.4-10.2) mg/dL Iron (50-170) ug/dL Iron Saturation (12.00-45.00) Total Bilirubin 5.1 H (0.2-1.3) mg/dL AST 193 H (14-36) U/L ALT 160 H (9-52) U/L Alkaline Phosphatase 187 H (38-126) U/L Total Protein 5.6 L (6.3-8.2) g/dL Albumin 3.0 L (3.5-5.0) g/dL 01/28/18 Range/Units 11:52 WBC (3.8-10.6) k/uL RDW (11.5-15.5) % Neutrophils # (1.3-7.7) k/uL PT (9.0-12.0) sec INR (<1.2) Sodium (137-145) mmol/L Chloride (98-107) mmol/L BUN (7-17) mg/dL Creatinine (0.52-1.04) mg/dL Glucose (74-99) mg/dL POC Glucose (mg/dL) 149 H (75-99) mg/dL Hemoglobin A1c (4.0-6.0) % Calcium (8.4-10.2) mg/dL Iron (50-170) ug/dL Iron Saturation (12.00-45.00) Total Bilirubin (0.2-1.3) mg/dL AST (14-36) U/L ALT (9-52) U/L Alkaline Phosphatase (38-126) U/L Total Protein (6.3-8.2) g/dL Albumin (3.5-5.0) g/dL Microbiology - Last 24 Hours (Table) 01/26/18 23:54 Urine Culture - Final Urine,Voided 01/27/18 00:30 Blood Culture - Preliminary Blood No Growth after 24 hours Assessment and Plan Plan: This is a 67-year-old female patient presented to the hospital with severe sepsis, septic shock secondary to os likely urinary tract infection and possible prominent cellulitis. Patient is currently on cefepime and vancomycin which will be continued for now. Understand need for avoiding nephrotoxic agents. Cultures are in progress. Continue supportive care. Local wound care will be addressed to the right lower extremity. Further recommendations as patient progresses. The above dictated assessment and findings were discussed with Dr. Cazares. The impression and plan of care have been directed as dictated. Corinne Harper nurse practitioner acting as scribe for Dr. Cazares.
--- NOTE | 2018-01-28 15:08 | PN ---
PROGRESS NOTE Azul is a 67-year-old lady who was admitted to hospital with change in mental status, urinary tract infection and cellulitis. She has elevated liver enzymes and is currently in the process of undergoing an MRCP. Clinically, she looks little better. On exam, heart rate is 77 beats per minute, irregular. Blood pressure is 80/59, respiratory rate is 18. Chest exam reveals diminished air entry at the bases. Heart exam reveals first and second heart sounds irregular rhythm. Exam of the extremities reveals bilateral edema and mild cellulitis, but this has improved compared to yesterday. Patient is currently on intravenous Cardizem for her A. fib and on Levophed for hypotension and is also receiving the metoprolol. LABS: Show that the hemoglobin is 13.6, white cell count is 14, BUN is 53, creatinine is 1.4. INR is 3.2. ASSESSMENT: 1. Chronic atrial fibrillation with poorly controlled ventricular rate. 2. Hypertension. 3. Cellulitis. 4. Coagulopathy. 5. Urinary tract infection. PLAN: Continue with the current antibiotics and continue with intravenous Cardizem. MMODL / IJN: [id number] /
[2018-01-28 16:12] LABS: Glucose,Whole Blood 128 mg/dL (75-99)
[2018-01-28 20:39] LABS: Glucose,Whole Blood 128 mg/dL (75-99)
--- NOTE | 2018-01-28 21:17 | P.CON ---
Consult Note - . Consult date: 01/28/18 Assessment/Plan:: 67-year-old female known to ID service as she has been treated for right lower extremity cellulitis in the past. 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 She has currently living in an apartment on her own and son is staying with her to help her with transfers. She presented to [facility] emergency center on January 26 due to decreased mental status and her blood sugar was low at home. She is found to be afebrile but tachycardic with A. fib RVR and hypotensive. Her white count was 14.5, blood sugar 39, hemoglobin A1c 6.9. Liver function tests were elevated. Urinalysis was turbid with leukoesterase large, WBC 64 bacteria many. [facility] and liver failure and renal failure and subsequently blood pressure worsened and she ended up transferring to ICU status post IV fluid resuscitation. She had a CAT scan of the brain that showed encephalomalacia and old large left middle cerebral artery infarct with multiple lacunar infarcts unchanged. Regarding her INR of greater than 10 she was given vitamin K with improvement down to 6.4. She was initially started on IV antibiotics with Rocephin subsequently on cefepime and vancomycin. Patient has been seen by GI with plan for MRCP and MRI of the liver either today or tomorrow. Radiology is following for chronic atrial fibrillation with RVR currently on Cardizem drip. Dr. Rivera is following for acute kidney injury and ATN. Patient has previous urine culture with enterococcus and previous right leg culture for Klebsiella. On this visit , blood culture showing no growth at 24 hours. Urine culture in progress. Acute hepatitis panel is negative. Please see the consult note as dictated by AUDIO VIDEO MECHANIC Lolis Corinne Harper. 67-year-old woman presents to Hospital with some altered mental status and evidence of hypoglycemia. The patient was found at that time evidence of atrial fibrillation with a rapid ventricular response in leukocytosis. With concerns to urinary infection as well as cellulitis to the lower extremity the infectious diseases consultation was requested. At this time the patient remains in intensive care unit she is being evaluated for her Coumadin coagulopathy, obstructive jaundice, and acute renal failure. The cellulitis changes to the lower extremity are pearly improving as her diuresis is improving. However there is evidence of the urinary tract infection with Klebsiella, and enterococcus fecium. Antibiotic therapy continues with cefepime we'll alter vancomycin to daptomycin given the ATN and acute changes of her renal status which has been discussed with the director law enforcement. The daptomycin and give coverage for urinary infection as well as a skin and soft tissue infection that she has to the right lower extremity. Elevation of the limb as she tolerates. There are some chronic skin changes or lower extremity likely from chronic Silvadene use. We'll rapid elevate the limb as tolerated. I agree with evaluation, assessment and plan is to keep her nurse practitioner Mrs. Corinne Harper.
[2018-01-28] MEDS: DAPTOmycin 500 MG in SODIUM CHLORIDE 0.9% 50 ML IVPB SCH (22:45)
[2018-01-29] MEDS: DILTIAZEM 50 MG in SODIUM CHLORIDE 0.9% 40 ML IV SCH ×3 (05:00→08:57)
[2018-01-29 05:36] LABS: Anisocytosis Slight; Basophils % (A) 0 %; Eosinophils # (A) 0.2 k/uL (0-0.7); Eosinophils % (A) 2 %; HCT 43.6 % (34.0-46.0); HGB 13.7 gm/dL (11.4-16.0); Hypochromasia Marked; Lymphocytes # (A) 0.9 k/uL (1.0-4.8); Lymphocytes % (A) 9 %; MCH 30.9 pg (25.0-35.0); MCHC 31.5 g/dL (31.0-37.0); MCV 98.2 fL (80.0-100.0); Macrocytosis Slight; Monocytes # (A) 0.6 k/uL (0-1.0); Monocytes % (A) 6 %; Neutrophils # (A) 7.7 k/uL (1.3-7.7); Neutrophils % (A) 82 %; Platelet Count 159 k/uL (150-450); RBC 4.44 m/uL (3.80-5.40); RDW 17.6 % (11.5-15.5); WBC 9.5 k/uL (3.8-10.6)
[2018-01-29 05:48] LABS: Albumin 3.1 g/dL (3.5-5.0); Calcium 8.6 mg/dL (8.4-10.2); Magnesium 2.1 mg/dL (1.6-2.3); Potassium 4.3 mmol/L (3.5-5.1); Total Bilirubin 4.8 mg/dL (0.2-1.3); Total Protein 5.7 g/dL (6.3-8.2)
[2018-01-29 05:53] LABS: INR 1.9 (<1.2); Prothrombin Time 17.4 sec (9.0-12.0)
[2018-01-29] MEDS: LEVOTHYROXINE 25 MCG TAB PO SCH (06:45)
--- NOTE | 2018-01-29 06:59 | XR ---
EXAMINATION TYPE: XR chest 1V portable DATE OF EXAM: 01/29/2018 CLINICAL HISTORY: Difficulty breathing progress study. TECHNIQUE: Single AP portable upright view of the chest is obtained. COMPARISON: Chest x-ray from one day earlier and older studies. CT abdomen and pelvis from 2 days ear lier FINDINGS: There is redemonstration of cardiomegaly. There is chronic parenchymal change without susp icious new focal airspace opacity or pneumothorax seen bilaterally. Small to tiny bilateral pleural e ffusions are felt to remain present. Osseous structures are intact. IMPRESSION: Overall stable findings, cardiomegaly with stable small to tiny bilateral pleural effus ions, no new suspicious focal infiltrate.
[2018-01-29] MEDS: IPRATROPIUM-ALBUTEROL 3 ML NEB INHALATION SCH ×4 (07:03→20:12)
[2018-01-29 07:28] LABS: Glucose,Whole Blood 95 mg/dL (75-99)
[2018-01-29] MEDS: SODIUM CHLORIDE 0.9% 1,000 ML IV SCH (07:46)
[2018-01-29] MEDS: INSULIN ASPART 100 UNIT/ML 1 ML 10 ML VIAL SQ SCH ×4 (08:51→22:41)
[2018-01-29] MEDS: CEFEPIME 2 GM in SODIUM CHLORIDE 0.9% 50 ML IVPB SCH ×2 (08:56→21:35)
[2018-01-29] MEDS: PANTOPRAZOLE 40 MG/10 ML VIAL IVP SCH ×2 (08:57→21:35)
--- NOTE | 2018-01-29 09:15 | PN ---
PROGRESS NOTE DATE OF DICTATION: 01/28/2018 Patient is a 67-year-old pleasant white female admitted to the hospital with acute sepsis/septic shock and urinary tract infection with gram-negative bacteremia and enterococcus infection. At the time of admission to the hospital, the patient was noted to have elevated LFTs with jaundice and a bilirubin up to 9 g/dL. Initial ultrasound did not show any evidence of biliary ductal dilation, but it did show distended gallbladder. Subsequently she did have a CT IV contrast contrast which showed no evidence of biliary ductal dilation. Once again the gallbladder was noted to be distended. During this hospitalization the patient denies any associated abdominal pain. No nausea, vomiting. She has been on broad-spectrum antibiotics for sepsis related to urinary tract infection. She continues to remain on 1 mcg of Levophed. She denies any symptoms. She reports no abdominal pain, no nausea or vomiting. PHYSICAL EXAMINATION: She appears comfortable. No apparent distress. VITAL SIGNS: Stable. Blood pressure is 93/55, pulse rate 76 and afebrile. HEENT examination unremarkable. Conjunctivae are pink. Sclerae icteric. Oral cavity no lesions. NECK: No JVD or lymph node enlargement. Chest was clear to auscultation. HEART: Regular rate and rhythm. ABDOMEN: Soft. It was non-tender, non-distended. Liver and spleen are not palpable. EXTREMITIES: Some redness in the right lower extremity. Mild pedal edema. NEUROLOGIC: Alert and oriented x3. No focal deficits. LABS FROM TODAY: WBC 14.4, hemoglobin 13.6. Platelets are normal. PT 28.7, INR 3.2. Total bilirubin is down to 5.1. AST is down to 193. ALT is 160, alkaline phosphatase 187. Ammonia has been less than 9. IMPRESSION: 1. Sepsis/septic shock, possibly from urinary tract infection, presently on broad- spectrum antibiotics, and she is gradually improving. 2. Elevated liver function tests and jaundice of unclear etiology. At this time it is unclear if we are dealing with chronic liver disease with decompensation versus biliary pathology. She did have ultrasound as well as CT scan of the abdomen that did not show any biliary ductal dilation. However, she had a distended gallbladder with echogenic but no obvious stone seen. 3. Possible right lower extremity cellulitis. Dr. Cazares has been consulted. 4. 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 5. Coagulopathy related to Coumadin, which is currently being reversed. INR today is 3.2. RECOMMENDATIONS: 1. In regards to elevated LFTs and jaundice, we will proceed with an MRCP today. We will discuss with Dr. Rivera. 2. Continue with broad-spectrum antibiotics. 3. Monitor her liver enzymes on a daily basis. Thank you for this consultation. MMODL / IJN: [id number] /
[2018-01-29] MEDS: METOPROLOL TARTRATE 50 MG TAB PO SCH (09:44)
[2018-01-29 12:08] LABS: Glucose,Whole Blood 140 mg/dL (75-99)
--- NOTE | 2018-01-29 12:09 | P.PN ---
Subjective Progress Note Date: 01/29/18 Principal diagnosis: Elevated liver enzymes. 67-year-old female admitted with acute sepsis septic shock UTI gram-negative bacteremia enterococcus infection. Reevaluated today in regards to elevated liver enzymes. Etiology unclear. MRCP scheduled today. Total bilirubin slightly improved today 4.8. AST 117. ALT 133. AP 187. Creatinine improved 1.2. Afebrile. Presently denies abdominal pain. Objective - Vital Signs Vital signs: Vital Signs Temp 97.5 F L 01/29/18 09:00 Pulse 96 01/29/18 11:14 Resp 22 01/29/18 11:00 BP 97/63 01/29/18 11:00 Pulse Ox 98 01/29/18 11:00 Intake & Output 01/28/18 01/29/18 01/29/18 18:59 06:59 18:59 Intake Total 2749.064 1119.167 553.583 Output Total 615 540 235 Balance 2134.064 579.167 318.583 Weight 116.8 kg Intake: IV 1418 700 100 .9 700 600 50 Cefepime 2 gm In Sodium 50 100 50 Chloride 0.9% 50 ml @ 100 mls/hr IVPB Q12HR [facility] Rx #:[id number] Vancomycin 2,000 mg In 668 Sodium Chloride 0.9% 500 ml @ 167 mls/hr IVPB ONCE ONE Rx#:[id number] Intake, IV Titration 251.064 139.167 213.583 Amount DAPTOmycin 500 mg In 100 Sodium Chloride 0.9% 50 ml @ 100 mls/hr IVPB Q24H [facility] Rx#:[id number] Diltiazem 50 mg In Sodium 99.75 39.167 13.583 Chloride 0.9% 40 ml @ 10 MG/HR 10 mls/hr IV .Q5H [facility] Rx#:[id number] Norepinephrine 4 mg In 151.314 Sodium Chloride 0.9% 250 ml @ Titrate IV .Q0M [facility] Rx#:[id number] Sodium Chloride 0.9% 1, 200 000 ml @ 50 mls/hr IV . Q20H [facility] Rx#:[id number] Oral 1080 280 240 Output: Urine 615 540 235 Other: Voiding Method Indwelling Catheter Indwelling Catheter Indwelling Catheter - Exam General appearance: The patient is alert, oriented, in no acute distress. Jaundice. HET: Head is normocephalic and atraumatic. Pupils are equal and reactive. Sclerae icterus. Oropharynx is clear without lesions. Neck: Supple without lymphadenopathy. Trachea midline. Heart: S1 S2. Regular rate and rhythm. Lungs: No crackles or wheezes are heard. Abdomen: Soft, nontender, nondistended with bowel sounds. No peritoneal signs. No palpable organomegaly or masses. Extremities: Mild erythema right lower extremity. Mild bilateral pedal edema. Radial and pedal pulses are 2/4 bilaterally. Neurological: No focal deficits. Strength and sensation are grossly intact. - Labs CBC & Chem 7: 01/29/18 05:20 01/29/18 05:20 Labs: Abnormal Lab Results - Last 24 Hours (Table) 01/28/18 01/28/18 01/29/18 Range/Units 16:11 20:38 05:20 RDW 17.6 H (11.5-15.5) % Lymphocytes # 0.9 L (1.0-4.8) k/uL PT (9.0-12.0) sec INR (<1.2) Sodium (137-145) mmol/L Chloride (98-107) mmol/L BUN (7-17) mg/dL Creatinine (0.52-1.04) mg/dL Glucose (74-99) mg/dL POC Glucose (mg/dL) 128 H 128 H (75-99) mg/dL Total Bilirubin (0.2-1.3) mg/dL AST (14-36) U/L ALT (9-52) U/L Alkaline Phosphatase (38-126) U/L Total Protein (6.3-8.2) g/dL Albumin (3.5-5.0) g/dL 01/29/18 01/29/18 Range/Units 05:20 05:20 RDW (11.5-15.5) % Lymphocytes # (1.0-4.8) k/uL PT 17.4 H (9.0-12.0) sec INR 1.9 H (<1.2) Sodium 131 L (137-145) mmol/L Chloride 97 L (98-107) mmol/L BUN 52 H (7-17) mg/dL Creatinine 1.28 H (0.52-1.04) mg/dL Glucose 117 H (74-99) mg/dL POC Glucose (mg/dL) (75-99) mg/dL Total Bilirubin 4.8 H (0.2-1.3) mg/dL AST 117 H (14-36) U/L ALT 133 H (9-52) U/L Alkaline Phosphatase 187 H (38-126) U/L Total Protein 5.7 L (6.3-8.2) g/dL Albumin 3.1 L (3.5-5.0) g/dL Microbiology - Last 24 Hours (Table) 01/27/18 00:30 Blood Culture - Preliminary Blood No Growth after 48 hours 01/26/18 23:54 Urine Culture - Final Urine,Voided Assessment and Plan Assessment: Impression: 1. Sepsis septic shock possibly from UTI presently on broad-spectrum antibiotics gradually improving. 2. Elevated liver tests jaundice of unclear etiology. Unclear if we're dealing with chronic liver disease with decompensation versus biliary pathology. Ultrasound as well as CT of the abdomen did not show biliary duct dilatation. Ultrasound demonstrated dilated gallbladder cholelithiasis sludge CBD 0.5 cm. Underlying choledocholithiasis cannot be excluded. 3. Right lower extremity cellulitis. 4. History of CVA right-sided hemiparesis mild aphasia. 5. Warfarin-induced coagulopathy present INR is 1.9. Plan: 1. MRCP. Daily CMP PT/INR. We'll continue to follow with you. Continue with antibiotics. Assessment and plan a care discussed with Dr. Bosch
--- NOTE | 2018-01-29 12:11 | P.PN ---
Subjective Patient continues in intensive care unit. To baseline on mental status. Noted to be in a regular rhythm is chronic atrial fibrillation. Noted generalized anasarca Objective - Vital Signs Vital signs: Vital Signs Temp 97.5 F L 01/29/18 09:00 Pulse 96 01/29/18 11:14 Resp 22 01/29/18 11:00 BP 97/63 01/29/18 11:00 Pulse Ox 98 01/29/18 11:00 Intake & Output 01/28/18 01/29/18 01/29/18 18:59 06:59 18:59 Intake Total 2749.064 1119.167 553.583 Output Total 615 540 235 Balance 2134.064 579.167 318.583 Weight 116.8 kg Intake: IV 1418 700 100 .9 700 600 50 Cefepime 2 gm In Sodium 50 100 50 Chloride 0.9% 50 ml @ 100 mls/hr IVPB Q12HR [facility] Rx #:[id number] Vancomycin 2,000 mg In 668 Sodium Chloride 0.9% 500 ml @ 167 mls/hr IVPB ONCE ONE Rx#:[id number] Intake, IV Titration 251.064 139.167 213.583 Amount DAPTOmycin 500 mg In 100 Sodium Chloride 0.9% 50 ml @ 100 mls/hr IVPB Q24H [facility] Rx#:[id number] Diltiazem 50 mg In Sodium 99.75 39.167 13.583 Chloride 0.9% 40 ml @ 10 MG/HR 10 mls/hr IV .Q5H [facility] Rx#:[id number] Norepinephrine 4 mg In 151.314 Sodium Chloride 0.9% 250 ml @ Titrate IV .Q0M [facility] Rx#:[id number] Sodium Chloride 0.9% 1, 200 000 ml @ 50 mls/hr IV . Q20H [facility] Rx#:[id number] Oral 1080 280 240 Output: Urine 615 540 235 Other: Voiding Method Indwelling Catheter Indwelling Catheter Indwelling Catheter - Constitutional General appearance: Present: morbidly obese - EENT Eyes: Present: PERRLA Ears: bilateral: normal - Respiratory Respiratory: bilateral: diminished - Cardiovascular Rhythm: irregularly irregular - Gastrointestinal General gastrointestinal: Present: soft - Integumentary Integumentary: Present: normal - Musculoskeletal Musculoskeletal: Present: generalized weakness, right sided weakness - Psychiatric Psychiatric Comment(s): Patient has expressive dysphasia - Labs CBC & Chem 7: 01/29/18 05:20 01/29/18 05:20 Labs: Abnormal Lab Results - Last 24 Hours (Table) 01/28/18 01/28/18 01/29/18 Range/Units 16:11 20:38 05:20 RDW 17.6 H (11.5-15.5) % Lymphocytes # 0.9 L (1.0-4.8) k/uL PT (9.0-12.0) sec INR (<1.2) Sodium (137-145) mmol/L Chloride (98-107) mmol/L BUN (7-17) mg/dL Creatinine (0.52-1.04) mg/dL Glucose (74-99) mg/dL POC Glucose (mg/dL) 128 H 128 H (75-99) mg/dL Total Bilirubin (0.2-1.3) mg/dL AST (14-36) U/L ALT (9-52) U/L Alkaline Phosphatase (38-126) U/L Total Protein (6.3-8.2) g/dL Albumin (3.5-5.0) g/dL 01/29/18 01/29/18 Range/Units 05:20 05:20 RDW (11.5-15.5) % Lymphocytes # (1.0-4.8) k/uL PT 17.4 H (9.0-12.0) sec INR 1.9 H (<1.2) Sodium 131 L (137-145) mmol/L Chloride 97 L (98-107) mmol/L BUN 52 H (7-17) mg/dL Creatinine 1.28 H (0.52-1.04) mg/dL Glucose 117 H (74-99) mg/dL POC Glucose (mg/dL) (75-99) mg/dL Total Bilirubin 4.8 H (0.2-1.3) mg/dL AST 117 H (14-36) U/L ALT 133 H (9-52) U/L Alkaline Phosphatase 187 H (38-126) U/L Total Protein 5.7 L (6.3-8.2) g/dL Albumin 3.1 L (3.5-5.0) g/dL Microbiology - Last 24 Hours (Table) 01/27/18 00:30 Blood Culture - Preliminary Blood No Growth after 48 hours 01/26/18 23:54 Urine Culture - Final Urine,Voided - Imaging and Cardiology Chest x-ray: report reviewed Assessment and Plan Plan: Assessment Mental status changes acute metabolic encephalopathy secondary to hypoglycemia Elevated bilirubin Atrial fibrillation with RVR Hypertension Hyponatremia Hyperkalemia Coumadin coagulopathy History of congestive heart failure Chronic COPD History of a cardiovascular accident with right-sided hemiparesis and expressive dysphasia Gait dysfunction GERD gallstones with dilated gallbladder History of aortic stenosis Pulmonary hypertension History of lower extremity cellulitis Obesity with BMI of 36.8 Hypotension Plan Continue consultation with Dr. Rivera cardiology pulmonology gastroenterology surgery and infectious disease
[2018-01-29] MEDS: MULTIVITAMINS, THERA 1 EACH TAB PO SCH (12:28)
[2018-01-29] MEDS: FOLIC ACID 1 MG TAB PO SCH (12:28)
[2018-01-29] MEDS: THIAMINE 100 MG TAB PO SCH (12:29)
--- NOTE | 2018-01-29 14:14 | P.PN ---
Subjective Progress Note Date: 01/29/18 67-year-old female sitting up in the ICU in a chair feet elevated eyes closed opens to verbal stimuli patient is scheduled for an MRCP per GI service today. Currently when questioning is denying any abdominal pain no nausea no vomiting. AST 117, [id number] total bili 4.8 Patient initially was admitted with acute sepsis with septic shock due to UTI gram-negative bacteremia and entercoccus infection Objective - Vital Signs Vital signs: Vital Signs Temp 97.6 F 01/29/18 12:00 Pulse 86 01/29/18 12:00 Resp 26 H 01/29/18 12:00 BP 97/63 01/29/18 12:00 Pulse Ox 97 01/29/18 12:00 Intake & Output 01/28/18 01/29/18 01/29/18 18:59 06:59 18:59 Intake Total 2749.064 1119.167 653.583 Output Total 615 540 355 Balance 2134.064 579.167 298.583 Weight 116.8 kg Intake: IV 1418 700 100 .9 700 600 50 Cefepime 2 gm In Sodium 50 100 50 Chloride 0.9% 50 ml @ 100 mls/hr IVPB Q12HR [facility] Rx #:[id number] Vancomycin 2,000 mg In 668 Sodium Chloride 0.9% 500 ml @ 167 mls/hr IVPB ONCE ONE Rx#:[id number] Intake, IV Titration 251.064 139.167 313.583 Amount DAPTOmycin 500 mg In 100 Sodium Chloride 0.9% 50 ml @ 100 mls/hr IVPB Q24H [facility] Rx#:[id number] Diltiazem 50 mg In Sodium 99.75 39.167 13.583 Chloride 0.9% 40 ml @ 10 MG/HR 10 mls/hr IV .Q5H [facility] Rx#:[id number] Norepinephrine 4 mg In 151.314 Sodium Chloride 0.9% 250 ml @ Titrate IV .Q0M [facility] Rx#:[id number] Sodium Chloride 0.9% 1, 300 000 ml @ 50 mls/hr IV . Q20H [facility] Rx#:[id number] Oral 1080 280 240 Output: Urine 615 540 355 Other: Voiding Method Indwelling Catheter Indwelling Catheter Indwelling Catheter - Exam Exam 67-year-old female sitting up in a chair appears in no acute distress Lungs diminished at the bases sats are 97% on 2 L Heart S1-S2 audible heart rate in the 80s to 90s Abdomen obese soft nondistended denies abdominal pain when questioning nontender indwelling Bermudez catheter in place no stool Extremities bilateral mild nonpitting pedal edema right lower extremity mild erythema - Labs CBC & Chem 7: 01/29/18 05:20 01/29/18 05:20 Labs: Abnormal Lab Results - Last 24 Hours (Table) 01/28/18 01/28/18 01/29/18 Range/Units 16:11 20:38 05:20 RDW 17.6 H (11.5-15.5) % Lymphocytes # 0.9 L (1.0-4.8) k/uL PT (9.0-12.0) sec INR (<1.2) Sodium (137-145) mmol/L Chloride (98-107) mmol/L BUN (7-17) mg/dL Creatinine (0.52-1.04) mg/dL Glucose (74-99) mg/dL POC Glucose (mg/dL) 128 H 128 H (75-99) mg/dL Total Bilirubin (0.2-1.3) mg/dL AST (14-36) U/L ALT (9-52) U/L Alkaline Phosphatase (38-126) U/L Total Protein (6.3-8.2) g/dL Albumin (3.5-5.0) g/dL 01/29/18 01/29/18 01/29/18 Range/Units 05:20 05:20 12:05 RDW (11.5-15.5) % Lymphocytes # (1.0-4.8) k/uL PT 17.4 H (9.0-12.0) sec INR 1.9 H (<1.2) Sodium 131 L (137-145) mmol/L Chloride 97 L (98-107) mmol/L BUN 52 H (7-17) mg/dL Creatinine 1.28 H (0.52-1.04) mg/dL Glucose 117 H (74-99) mg/dL POC Glucose (mg/dL) 140 H (75-99) mg/dL Total Bilirubin 4.8 H (0.2-1.3) mg/dL AST 117 H (14-36) U/L ALT 133 H (9-52) U/L Alkaline Phosphatase 187 H (38-126) U/L Total Protein 5.7 L (6.3-8.2) g/dL Albumin 3.1 L (3.5-5.0) g/dL Microbiology - Last 24 Hours (Table) 01/26/18 23:54 Urine Culture - Final Urine,Voided 01/27/18 00:30 Blood Culture - Preliminary Blood No Growth after 48 hours Assessment and Plan Assessment: Impression Present on admission acute sepsis with septic shock suspect due to UTI infectious disease following Present on admission acute Coumadin toxicity Chronic persistent atrial fibrillation with episodes of rapid ventricular response A prior CVA resulting in right side hemiplegia and expressive aphasia CAT scan of the abdomen pelvis without contrast reviewing the report no free air distention of the gallbladder Ultrasound of the abdomen showed dilated gallbladder with gallstone echogeni bile consistent with acute and chronic cholecystitisc Ultrasound the liver minimal amount of ascites obesity BMI 40 Present on admission elevated liver enzymes Plan No evidence of an acute surgical abdomen at this time Continue low-fat diet Continue with the ICU management per the 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 Mary Montanez nurse practitioner acting as scribe for signing physician.
--- NOTE | 2018-01-29 14:21 | PN ---
PROGRESS NOTE Azul is a 67-year-old lady that is admitted to hospital with change in mental status, changes to urinary tract infection and cellulitis. This morning she is more alert and awake, remains in atrial fibrillation with controlled ventricular rate and blood pressure had improved. On exam, comfortable at rest. Heart rate is 80 beats per minute, blood pressure 97/63, respiratory rate is 18. Chest exam reveals diminished air entry at the bases. Heart exam reveals first and second heart sounds, irregular rhythm. No murmur. Abdomen is soft. Exam of the extremities did not reveal any edema. LABS: Show a hemoglobin of 13.7, platelet count is 159. INR is 1.9. Potassium is 4.3. AST, ALT are still elevated. ASSESSMENT: 1. Urinary tract infection with sepsis. 2. Hypotension. 3. Chronic atrial fibrillation. PLAN: Her INR is 1.9. I am going to resume Coumadin at a lower dose. We will continue the metoprolol that she is on along with the metoprolol that she is on. Will taper and stop the Cardizem. MMODL / IJN: [id number] /
[2018-01-29] MEDS ORDERED: LIDOCAINE 1% INJ 10MG/ML (20 ML MDV) SQ ONE (14:38)
--- NOTE | 2018-01-29 16:00 | P.PN ---
Subjective Progress Note Date: 01/29/18 Principal diagnosis: Acute sepsis and septic shock secondary to cellulitis and possibly from recurrent urinary tract infection with enterococcus. This is a 67-year-old female patient with previous history of CVA right-sided with expressive aphasia and addition to COPD, chronic atrial fibrillation, CHF with a dysfunction, recurrent cellulitis of the right lower extremity, recurrent urine checked infection with enterococcus he showing klebsiella species in addition to hypertension and hyperlipidemia. This patient came in yesterday from ECF with hypoglycemia, Coumadin toxicity, acute kidney injury, altered mentation diminished level of consciousness. Her baseline is awake and communicating via saying yes and no and using different signs. I was told that yesterday her mental status was down and she got admitted to the medical floor where she was found to be hypoglycemic with a blood sugar of 30. The patient was also found to be hypotensive. The hypoglycemia was treated. The patient got 500 disease of normal saline bolus and following that the patient got transferred to the intensive care unit and she was placed on pressors through an external jugular line in her right neck. Currently she is on norepinephrine infusion at 10 mics. She is a bit more responsive and alert. CAT scan of the brain was done and it showed encephalomalacia and old large left middle cerebral artery infarct with multiple lacunar infarcts unchanged compared to her prior evaluations. Patient was given 2 mg of vitamin K and INR dropped down to 6.4. The patient was given IV Rocephin as an empiric antibiotic coverage. UA was suggestive of recurrent UTI. The patient has no active cellulitis in the right lower extremity. She is in atrial fibrillation. She is not rapid ventricular response and the heart rate is around 120. Nevertheless, since she came up to the ICU, she has become much more responsive. Typically stakes insulin and metformin for her blood sugars. Of note, abnormalities in her LFTs. Bilirubin AST and ALP are quite elevated. Ultrasound of the gallbladder showed a dilated gallbladder with gallstones and echogenic bile consistent with acute and chronic cholecystitis. Gallbladder measured 6 cm in size. Limited evaluation of the liver showed no evidence of any liver mass. Note that dilated ducts. Minimal amount of ascites. Right kidney shows no evidence of any hydronephrosis. Reevaluated today on 01/28/2018, patient remains relatively hypotensive, requiring 2 g of norepinephrine, she remains tachycardic, in atrial fibrillation with RVR, remains on Cardizem at 10 mg per hour. Remains on antibiotics for her presumptive sepsis and septic shock. She has abnormal renal functioning with BUN of 53 creatinine 1.40, improved over the last 2 days. Continues to have leukocytosis with WBC count of 14.4, hemoglobin is 13.6 , INR is 3.2. Continues to have elevated liver enzymes with AST of 193 ALT 160 and alkaline phosphatase of 187. Remains on cefepime and vancomycin for presumptive sepsis. And septic shock. Patient is otherwise relatively asymptomatic, denies any headache no blurred vision no dizziness no chest pain no cough no wheezing. Patient was examined today on 02/08/2018, she was still in the ICU at the time of my evaluation. Off norepinephrine, remains on Cardizem drip at 5 mg per hour for atrial fibrillation with RVR. Clinically the patient is feeling much better, breathing a lot easier, denies any shortness of breath no cough no wheezing no chest pain. Labs were reviewed, INR is 1.9. Electrolytes are normal BUN is 52 creatinine is 1.28. All improving. Liver enzymes remain a bit elevated. Patient is recovering from acute septic shock secondary to UTI. Today I have recommended transferring the patient out of the ICU to a monitor bed on selective as she remains ill, and she has multiple complex medical issues. Her issues could be managed on a monitor bed on selective today. Patient is still being followed by many consultants on the case Objective - Vital Signs Vital signs: Vital Signs Temp 97.6 F 01/29/18 12:00 Pulse 56 L 01/29/18 15:00 Resp 16 01/29/18 15:00 BP 109/72 01/29/18 15:00 Pulse Ox 96 01/29/18 15:00 Intake & Output 01/28/18 01/29/18 01/29/18 18:59 06:59 18:59 Intake Total 2749.064 1119.167 703.583 Output Total 615 540 395 Balance 2134.064 579.167 308.583 Weight 116.8 kg Intake: IV 1418 700 100 .9 700 600 50 Cefepime 2 gm In Sodium 50 100 50 Chloride 0.9% 50 ml @ 100 mls/hr IVPB Q12HR [facility] Rx #:[id number] Vancomycin 2,000 mg In 668 Sodium Chloride 0.9% 500 ml @ 167 mls/hr IVPB ONCE ONE Rx#:[id number] Intake, IV Titration 251.064 139.167 363.583 Amount DAPTOmycin 500 mg In 100 Sodium Chloride 0.9% 50 ml @ 100 mls/hr IVPB Q24H [facility] Rx#:[id number] Diltiazem 50 mg In Sodium 99.75 39.167 13.583 Chloride 0.9% 40 ml @ 10 MG/HR 10 mls/hr IV .Q5H [facility] Rx#:[id number] Norepinephrine 4 mg In 151.314 Sodium Chloride 0.9% 250 ml @ Titrate IV .Q0M [facility] Rx#:[id number] Sodium Chloride 0.9% 1, 350 000 ml @ 50 mls/hr IV . Q20H [facility] Rx#:[id number] Oral 1080 280 240 Output: Urine 615 540 395 Other: Voiding Method Indwelling Catheter Indwelling Catheter Indwelling Catheter - Exam Physical Exam: Revealed a 67-year-old female, in no distress, aphasic.. Head: Atraumatic, normocephalic, moist mucous membranes noted. HEENT:[Neck is supple.] [No neck masses.] [No thyromegaly.] [No JVD.] PERRLA, EOMI, no icterus. Chest: [Diminished breath sounds at the bases, no crackles, no wheezes. Cardiac Exam: [Irregular irregular rhythm. Normal S1 and S2, no S3 gallop, no murmur.] Abdomen: [Soft, nontender, no megaly, no rebound, no guarding, normal bowel sounds.] Extremities: Chronic edema and discoloration of lower extremities noted bilaterally, related to chronic and recurrent cellulitis. No open wounds noted. Neurological Exam: Expressive aphasia noted, right-sided hemiplegia is noted, Lymphatics: No lymphadenopathy. Skin: Erythematous changes noted in both lower extremities as noted above. - Labs CBC & Chem 7: 01/29/18 05:20 01/29/18 05:20 Labs: Abnormal Lab Results - Last 24 Hours (Table) 01/28/18 01/28/18 01/29/18 Range/Units 16:11 20:38 05:20 RDW 17.6 H (11.5-15.5) % Lymphocytes # 0.9 L (1.0-4.8) k/uL PT (9.0-12.0) sec INR (<1.2) Sodium (137-145) mmol/L Chloride (98-107) mmol/L BUN (7-17) mg/dL Creatinine (0.52-1.04) mg/dL Glucose (74-99) mg/dL POC Glucose (mg/dL) 128 H 128 H (75-99) mg/dL Total Bilirubin (0.2-1.3) mg/dL AST (14-36) U/L ALT (9-52) U/L Alkaline Phosphatase (38-126) U/L Total Protein (6.3-8.2) g/dL Albumin (3.5-5.0) g/dL 01/29/18 01/29/18 01/29/18 Range/Units 05:20 05:20 12:05 RDW (11.5-15.5) % Lymphocytes # (1.0-4.8) k/uL PT 17.4 H (9.0-12.0) sec INR 1.9 H (<1.2) Sodium 131 L (137-145) mmol/L Chloride 97 L (98-107) mmol/L BUN 52 H (7-17) mg/dL Creatinine 1.28 H (0.52-1.04) mg/dL Glucose 117 H (74-99) mg/dL POC Glucose (mg/dL) 140 H (75-99) mg/dL Total Bilirubin 4.8 H (0.2-1.3) mg/dL AST 117 H (14-36) U/L ALT 133 H (9-52) U/L Alkaline Phosphatase 187 H (38-126) U/L Total Protein 5.7 L (6.3-8.2) g/dL Albumin 3.1 L (3.5-5.0) g/dL Microbiology - Last 24 Hours (Table) 01/26/18 23:54 Urine Culture - Final Urine,Voided 01/27/18 00:30 Blood Culture - Preliminary Blood No Growth after 48 hours Assessment and Plan Assessment: Impression: Acute sepsis and septic shock, could be secondary to urinary tract infection or could also be related to cellulitis., Blood cultures are negative so far.. Antibiotics on board empirically in the form of cefepime and vancomycin. 2 acute Coumadin toxicity 3 acute hepatitis, etiology is not clear, we will continue to monitor liver enzymes. 4 acute kidney injury, improving most likely secondary to ATN secondary to sepsis and hypotension. 5 chronic atrial fibrillation with RVR. 6 History of CVA, with right-sided hemiplegia and expressive aphasia 7. Essential hypertension 8 recurrent urinary tract infection with enterococcus 9 diabetes, with episode of hypoglycemia on admission. Treated and resolved. 10 chronic obstructive pulmonary disease, presently inactive. Recommendation: Continue Cardizem drip at 5 mg per hour, continue antibiotics, physical therapy, ambulation, we'll transfer out of the ICU to a monitor bed on selective, we'll continue to follow. Patient continues to have multiple complex medical issues, and will addressed accordingly. Time with Patient: Less than 30
[2018-01-29 17:28] LABS: Glucose,Whole Blood 119 mg/dL (75-99)
[2018-01-29] MEDS: HYDROmorphone 1 MG/ML 1 ML SYRINGE IVP PRN (17:52)
[2018-01-29] MEDS ORDERED: WARFARIN 1 MG TAB PO ONE (18:00)
--- NOTE | 2018-01-29 20:30 | PN ---
PROGRESS NOTE The patient is seen for followup for acute kidney injury. Her renal function has significantly improved. Currently, the patient is on IV fluids at about 50 mL an hour. She has had good urine output. His output has been 40-75 mL an hour. PHYSICAL EXAMINATION: On examination, the patient is awake, comfortable, not in any acute distress. Blood pressure is 109/72, heart rate 56 per minute. She is afebrile. Examination of the heart: S1, S2. Examination of the lungs: Bilateral breath sounds are heard. Decreased breath sounds at bases. Abdomen is soft, nontender, obese. Examination lower extremities shows chronic skin changes and some erythema is noted, which appears to be chronic. [employer] exam shows patient has right hemiparesis. LABS: Sodium 131, potassium 4.8, chloride 97, BUN 52, serum creatinine 1.28, hemoglobin 13.7 g/dL. ASSESSMENT: 1. Acute kidney injury, acute tubular necrosis, nonoliguric, currently significantly improved. 2. A recent urinary tract infection on last admission with current urine culture showing no growth. 3. History of his recent history of cerebrovascular accident with right-sided hemiparesis and expressive aphasia. 4. Elevated liver enzymes and hyperbilirubinemia to be scheduled for MRCP. 5. Atrial fibrillation with RVR. Maintained on Cardizem with the rate currently much better controlled being followed by Cardiology. 6. Coagulopathy with the use of Coumadin. 7. Status post acute sepsis and shock, currently significantly improved. 8. Chronic obstructive pulmonary disease. PLAN: Continue IV fluids at 50 mL an hour. Okay to proceed with MRCP as there is no dye used for MRCP and regarding the MRIs. The patient's renal function has improved with creatinine down to 1.28 with estimated GFR at 44 mL/minute. If absolutely necessary, we can likely proceed with MRI in the next day or so. MMODL / IJN: [id number] /
[2018-01-29 21:47] LABS: Glucose,Whole Blood 114 mg/dL (75-99)
[2018-01-29] MEDS: IPRATROPIUM 0.5 MG/2.5 ML NEBU INHALATION SCH ×2 (22:57→22:58)
[2018-01-29] MEDS: DEXTROSE 5%-0.45% NACL 1,000 ML IV SCH (22:57)
[2018-01-29] MEDS: DAPTOmycin 500 MG in SODIUM CHLORIDE 0.9% 50 ML IVPB SCH (23:30)
[2018-01-30 05:54] LABS: Glucose,Whole Blood 98 mg/dL (75-99)
[2018-01-30] MEDS: INSULIN ASPART 100 UNIT/ML 1 ML 10 ML VIAL SQ SCH ×4 (06:03→21:15)
[2018-01-30] MEDS: LEVOTHYROXINE 25 MCG TAB PO SCH (06:10)
[2018-01-30] MEDS: DILTIAZEM ORAL 30 MG TAB PO SCH ×3 (06:10→22:03)
[2018-01-30] MEDS: SODIUM CHLORIDE 0.9% 1,000 ML IV SCH (06:10)
[2018-01-30 06:45] LABS: Anisocytosis Slight; Basophils % (A) 0 %; Eosinophils # (A) 0.1 k/uL (0-0.7); Eosinophils % (A) 1 %; HCT 45.2 % (34.0-46.0); HGB 13.8 gm/dL (11.4-16.0); Hypochromasia Moderate; Lymphocytes # (A) 0.8 k/uL (1.0-4.8); Lymphocytes % (A) 8 %; MCH 30.2 pg (25.0-35.0); MCHC 30.5 g/dL (31.0-37.0); MCV 98.8 fL (80.0-100.0); Macrocytosis Slight; Mean Platelet Volume 7.8; Monocytes # (A) 0.8 k/uL (0-1.0); Monocytes % (A) 7 %; Neutrophils # (A) 9.2 k/uL (1.3-7.7); Neutrophils % (A) 83 %; Platelet Count 123 k/uL (150-450); RBC 4.57 m/uL (3.80-5.40); WBC 11.1 k/uL (3.8-10.6)
[2018-01-30 06:51] LABS: INR 1.6 (<1.2); Prothrombin Time 14.8 sec (9.0-12.0)
[2018-01-30 07:02] LABS: Albumin 2.9 g/dL (3.5-5.0); Calcium 8.8 mg/dL (8.4-10.2); Magnesium 2.3 mg/dL (1.6-2.3); Potassium 4.3 mmol/L (3.5-5.1); Total Bilirubin 5.5 mg/dL (0.2-1.3); Total Protein 5.6 g/dL (6.3-8.2)
--- NOTE | 2018-01-30 08:14 | IR ---
EXAMINATION TYPE: IR cvc insert >=5 years DATE OF EXAM: 01/29/2018 COMPARISON: NONE CLINICAL HISTORY: Infection Needs long-term intravenous access for antibiotics, vasopressors. PROCEDURE: After informed consent, the skin overlying the left basilic vein was localized with ultrasound and no raymond to be compressible and patent. An ultrasound image was obtained and submitted on the patient's c almeida. The overlying skin was prepped and draped and Lidocaine was used for local anesthesia. A skin truman was made with a scalpel. Access was gained to the vein under ultrasound guidance with a 21 gau ge needle and a 0.018 inch wire was advanced. Access site was dilated with Peel-Away sheath and cath eter tailored to the appropriate length and advanced such that the distal tip is at the cavoatrial ju nction. Spot image was obtained verifying placement. Catheter was fixed to the skin and a sterile d ressing was placed following hemostasis. Catheter was aspirated and flushed with saline. Patient wa s discharged in stable condition without complication. Maximal barrier technique is utilized. Ultras ound image is documented on the chart. Ultrasound used with sterile technique. Fluoro time and fluoroscopic images submitted to document procedure: 0.4 minutes fluoroscopy time. 42 intraoperative images document the procedure IMPRESSION: STATUS POST ULTRASOUND AND FLUOROSCOPIC GUIDED PICC LINE PLACEMENT, READY FOR USE. THIS PROCEDURE WAS PERFORMED BY THE UNDERSIGNED.
[2018-01-30] MEDS: CEFEPIME 2 GM in SODIUM CHLORIDE 0.9% 50 ML IVPB SCH ×2 (08:32→20:39)
[2018-01-30] MEDS: METOPROLOL TARTRATE 50 MG TAB PO SCH (08:33)
[2018-01-30] MEDS: PANTOPRAZOLE 40 MG/10 ML VIAL IVP SCH ×2 (08:33→20:40)
[2018-01-30] MEDS: IPRATROPIUM-ALBUTEROL 3 ML NEB INHALATION SCH ×4 (08:47→19:48)
[2018-01-30] MEDS: HYDROmorphone 1 MG/ML 1 ML SYRINGE IVP PRN (09:38)
--- NOTE | 2018-01-30 10:52 | P.PN ---
Subjective Progress Note Date: 01/30/18 Principal diagnosis: Acute sepsis, septic shock secondary to cellulitis and urinary tract infection with enterococcus This is a 67-year-old female patient with previous history of CVA right-sided with expressive aphasia and addition to COPD, chronic atrial fibrillation, CHF with a dysfunction, recurrent cellulitis of the right lower extremity, recurrent urine checked infection with enterococcus he showing klebsiella species in addition to hypertension and hyperlipidemia. This patient came in yesterday from ECF with hypoglycemia, Coumadin toxicity, acute kidney injury, altered mentation diminished level of consciousness. Her baseline is awake and communicating via saying yes and no and using different signs. I was told that yesterday her mental status was down and she got admitted to the medical floor where she was found to be hypoglycemic with a blood sugar of 30. The patient was also found to be hypotensive. The hypoglycemia was treated. The patient got 500 disease of normal saline bolus and following that the patient got transferred to the intensive care unit and she was placed on pressors through an external jugular line in her right neck. Currently she is on norepinephrine infusion at 10 mics. She is a bit more responsive and alert. CAT scan of the brain was done and it showed encephalomalacia and old large left middle cerebral artery infarct with multiple lacunar infarcts unchanged compared to her prior evaluations. Patient was given 2 mg of vitamin K and INR dropped down to 6.4. The patient was given IV Rocephin as an empiric antibiotic coverage. UA was suggestive of recurrent UTI. The patient has no active cellulitis in the right lower extremity. She is in atrial fibrillation. She is not rapid ventricular response and the heart rate is around 120. Nevertheless, since she came up to the ICU, she has become much more responsive. Typically stakes insulin and metformin for her blood sugars. Of note, abnormalities in her LFTs. Bilirubin AST and ALP are quite elevated. Ultrasound of the gallbladder showed a dilated gallbladder with gallstones and echogenic bile consistent with acute and chronic cholecystitis. Gallbladder measured 6 cm in size. Limited evaluation of the liver showed no evidence of any liver mass. Note that dilated ducts. Minimal amount of ascites. Right kidney shows no evidence of any hydronephrosis. Reevaluated today on 01/28/2018, patient remains relatively hypotensive, requiring 2 g of norepinephrine, she remains tachycardic, in atrial fibrillation with RVR, remains on Cardizem at 10 mg per hour. Remains on antibiotics for her presumptive sepsis and septic shock. She has abnormal renal functioning with BUN of 53 creatinine 1.40, improved over the last 2 days. Continues to have leukocytosis with WBC count of 14.4, hemoglobin is 13.6 , INR is 3.2. Continues to have elevated liver enzymes with AST of 193 ALT 160 and alkaline phosphatase of 187. Remains on cefepime and vancomycin for presumptive sepsis. And septic shock. Patient is otherwise relatively asymptomatic, denies any headache no blurred vision no dizziness no chest pain no cough no wheezing. Patient was examined today on 02/08/2018, she was still in the ICU at the time of my evaluation. Off norepinephrine, remains on Cardizem drip at 5 mg per hour for atrial fibrillation with RVR. Clinically the patient is feeling much better, breathing a lot easier, denies any shortness of breath no cough no wheezing no chest pain. Labs were reviewed, INR is 1.9. Electrolytes are normal BUN is 52 creatinine is 1.28. All improving. Liver enzymes remain a bit elevated. Patient is recovering from acute septic shock secondary to UTI. Today I have recommended transferring the patient out of the ICU to a monitor bed on selective as she remains ill, and she has multiple complex medical issues. Her issues could be managed on a monitor bed on selective today. Patient is still being followed by many consultants on the case On 01/30/2018 patient seen in follow[facility]up on [facility]. She was transferred out of the intensive care yesterday, she is a bit lethargic on today 's exam, but she easily arouses to verbal stimuli, and gives one or 2 word answers. This is pretty much her baseline as far as speech. Denies any distress, denies any shortness of breath, pulse ox on 2 L per nasal cannula is 97%, she is afebrile, vital tachycardic, with a heart rate in 111 bpm. blood and urine cultures remain negative. Today's labs were noted, WBC is 11.1, hemoglobin is 13.8, INR is 1.6, sodium is 135, the rest of the electrolytes are within normal limits, renal profile is improving, BUN is down to 49, creatinine is 1.27. LFTs are trending down. She denies any abdominal discomfort. Lung sounds are clear to auscultation, diminished at the bases. She continues on antibiotic coverage including cefepime, daptomycin. ID service is following. No acute distress, patient has severe generalized weakness. Objective - Vital Signs Vital signs: Vital Signs Temp 97.5 F L 01/30/18 08:35 Pulse 84 01/30/18 08:57 Resp 16 01/30/18 08:35 BP 106/77 01/30/18 08:35 Pulse Ox 97 01/30/18 08:35 Intake & Output 01/29/18 01/30/18 01/30/18 18:59 06:59 18:59 Intake Total 703.583 700 Output Total 395 Balance 308.583 700 Weight 142 kg Intake: IV 100 50 .9 50 Cefepime 2 gm In Sodium 50 50 Chloride 0.9% 50 ml @ 100 mls/hr IVPB Q12HR [facility] Rx #:[id number] Intake, IV Titration 363.583 650 Amount DAPTOmycin 500 mg In 50 Sodium Chloride 0.9% 50 ml @ 100 mls/hr IVPB Q24H [facility] Rx#:[id number] Diltiazem 50 mg In Sodium 13.583 Chloride 0.9% 40 ml @ 10 MG/HR 10 mls/hr IV .Q5H [facility] Rx#:[id number] Sodium Chloride 0.9% 1, 350 600 000 ml @ 50 mls/hr IV . Q20H [facility] Rx#:[id number] Oral 240 Output: Urine 395 Other: Voiding Method Indwelling Catheter Diaper Diaper # Voids 1 - Exam Physical Exam: Revealed a 67-year-old female, in no distress, aphasic.. Head: Atraumatic, normocephalic, moist mucous membranes noted. HEENT:[Neck is supple.] [No neck masses.] [No thyromegaly.] [No JVD.] PERRLA, EOMI, no icterus. Chest: [Diminished breath sounds at the bases, no crackles, no wheezes. Cardiac Exam: [Irregular irregular rhythm. Normal S1 and S2, no S3 gallop, no murmur.] Abdomen: [Soft, nontender, no megaly, no rebound, no guarding, normal bowel sounds.] Extremities: Chronic edema and discoloration of lower extremities noted bilaterally, related to chronic and recurrent cellulitis. No open wounds noted. Neurological Exam: Expressive aphasia noted, right-sided hemiplegia is noted, Lymphatics: No lymphadenopathy. Skin: Erythematous changes noted in both lower extremities as noted above. - Labs CBC & Chem 7: 01/30/18 05:53 01/30/18 05:53 Labs: Abnormal Lab Results - Last 24 Hours (Table) 01/29/18 01/29/18 01/29/18 Range/Units 12:05 17:26 21:45 WBC (3.8-10.6) k/uL MCHC (31.0-37.0) g/dL RDW (11.5-15.5) % Plt Count (150-450) k/uL Neutrophils # (1.3-7.7) k/uL Lymphocytes # (1.0-4.8) k/uL PT (9.0-12.0) sec INR (<1.2) Sodium (137-145) mmol/L BUN (7-17) mg/dL Creatinine (0.52-1.04) mg/dL POC Glucose (mg/dL) 140 H 119 H 114 H (75-99) mg/dL Total Bilirubin (0.2-1.3) mg/dL AST (14-36) U/L ALT (9-52) U/L Alkaline Phosphatase (38-126) U/L Total Protein (6.3-8.2) g/dL Albumin (3.5-5.0) g/dL 01/30/18 01/30/18 01/30/18 Range/Units 05:53 05:53 05:53 WBC 11.1 H (3.8-10.6) k/uL MCHC 30.5 L (31.0-37.0) g/dL RDW 18.0 H (11.5-15.5) % Plt Count 123 L (150-450) k/uL Neutrophils # 9.2 H (1.3-7.7) k/uL Lymphocytes # 0.8 L (1.0-4.8) k/uL PT 14.8 H (9.0-12.0) sec INR 1.6 H (<1.2) Sodium 135 L (137-145) mmol/L BUN 49 H (7-17) mg/dL Creatinine 1.27 H (0.52-1.04) mg/dL POC Glucose (mg/dL) (75-99) mg/dL Total Bilirubin 5.5 H (0.2-1.3) mg/dL AST 70 H (14-36) U/L ALT 106 H (9-52) U/L Alkaline Phosphatase 187 H (38-126) U/L Total Protein 5.6 L (6.3-8.2) g/dL Albumin 2.9 L (3.5-5.0) g/dL Microbiology - Last 24 Hours (Table) 01/27/18 00:30 Blood Culture - Preliminary Blood No Growth after 72 hours 01/26/18 23:54 Urine Culture - Final Urine,Voided Assessment and Plan Plan: Assessment: Acute sepsis and septic shock, could be secondary to urinary tract infection or could also be related to cellulitis., Blood cultures are negative so far. Antibiotics on board empirically in the form of cefepime and vancomycin. 2 acute Coumadin toxicity 3 acute hepatitis, etiology is not clear, we will continue to monitor liver enzymes. 4 acute kidney injury, improving most likely secondary to ATN secondary to sepsis and hypotension. 5 chronic atrial fibrillation with RVR. 6 History of CVA, with right-sided hemiplegia and expressive aphasia 7. Essential hypertension 8 recurrent urinary tract infection with enterococcus 9 diabetes, with episode of hypoglycemia on admission. Treated and resolved. 10 chronic obstructive pulmonary disease, presently inactive. Plan: Continue current antibiotic coverage, ID service is following. Encourage deep breathing and coughing, increase activity, consult physical therapy for mobilization of the patient. Maintain aspiration precautions. We'll continue to follow I performed a history & physical examination of the patient and discussed their management with my nurse practitioner, Ashleigh Odonnell. I reviewed the nurse practitioner's note and agree with the documented findings and plan of care. Lung sounds are diminished. The findings and the impression was discussed with the patient. I attest to the documentation by the nurse practitioner. Time with Patient: Less than 30
--- NOTE | 2018-01-30 11:17 | P.PN ---
Subjective Progress Note Date: 01/30/18 Principal diagnosis: Elevated liver enzymes. 67-year-old female admitted with acute sepsis septic shock UTI gram-negative bacteremia enterococcus infection. PICC line inserted yesterday. Reevaluated today in regards to elevated liver enzymes. Etiology unclear. MRCP attempted but unsuccessful secondary to body habitus. Total bilirubin slightly improved today 5.5. AST 70. ALT 106. AP 187. INR 1.6. Creatinine stable at 1.2. Afebrile. Presently reports mild midabdominal pain. Objective - Vital Signs Vital signs: Vital Signs Temp 97.5 F L 01/30/18 08:35 Pulse 84 01/30/18 08:57 Resp 16 01/30/18 08:35 BP 106/77 01/30/18 08:35 Pulse Ox 97 01/30/18 08:35 Intake & Output 01/29/18 01/30/18 01/30/18 18:59 06:59 18:59 Intake Total 703.583 700 Output Total 395 Balance 308.583 700 Weight 142 kg Intake: IV 100 50 .9 50 Cefepime 2 gm In Sodium 50 50 Chloride 0.9% 50 ml @ 100 mls/hr IVPB Q12HR [facility] Rx #:[id number] Intake, IV Titration 363.583 650 Amount DAPTOmycin 500 mg In 50 Sodium Chloride 0.9% 50 ml @ 100 mls/hr IVPB Q24H [facility] Rx#:[id number] Diltiazem 50 mg In Sodium 13.583 Chloride 0.9% 40 ml @ 10 MG/HR 10 mls/hr IV .Q5H [facility] Rx#:[id number] Sodium Chloride 0.9% 1, 350 600 000 ml @ 50 mls/hr IV . Q20H [facility] Rx#:[id number] Oral 240 Output: Urine 395 Other: Voiding Method Indwelling Catheter Diaper Diaper # Voids 1 - Exam General appearance: The patient is alert, oriented, in no acute distress. Jaundice. HET: Head is normocephalic and atraumatic. Pupils are equal and reactive. Sclerae icterus. Oropharynx is clear without lesions. Neck: Supple without lymphadenopathy. Trachea midline. Heart: S1 S2. Regular rate and rhythm. Lungs: No crackles or wheezes are heard. Abdomen: Soft, mild tenderness to midabdomen, nondistended with bowel sounds. No peritoneal signs. No palpable organomegaly or masses. Extremities: Mild erythema right lower extremity. Mild bilateral pedal edema. Radial and pedal pulses are 2/4 bilaterally. Neurological: No focal deficits. Strength and sensation are grossly intact. - Labs CBC & Chem 7: 01/30/18 05:53 01/30/18 05:53 Labs: Abnormal Lab Results - Last 24 Hours (Table) 01/29/18 01/29/18 01/29/18 Range/Units 12:05 17:26 21:45 WBC (3.8-10.6) k/uL MCHC (31.0-37.0) g/dL RDW (11.5-15.5) % Plt Count (150-450) k/uL Neutrophils # (1.3-7.7) k/uL Lymphocytes # (1.0-4.8) k/uL PT (9.0-12.0) sec INR (<1.2) Sodium (137-145) mmol/L BUN (7-17) mg/dL Creatinine (0.52-1.04) mg/dL POC Glucose (mg/dL) 140 H 119 H 114 H (75-99) mg/dL Total Bilirubin (0.2-1.3) mg/dL AST (14-36) U/L ALT (9-52) U/L Alkaline Phosphatase (38-126) U/L Total Protein (6.3-8.2) g/dL Albumin (3.5-5.0) g/dL 01/30/18 01/30/18 01/30/18 Range/Units 05:53 05:53 05:53 WBC 11.1 H (3.8-10.6) k/uL MCHC 30.5 L (31.0-37.0) g/dL RDW 18.0 H (11.5-15.5) % Plt Count 123 L (150-450) k/uL Neutrophils # 9.2 H (1.3-7.7) k/uL Lymphocytes # 0.8 L (1.0-4.8) k/uL PT 14.8 H (9.0-12.0) sec INR 1.6 H (<1.2) Sodium 135 L (137-145) mmol/L BUN 49 H (7-17) mg/dL Creatinine 1.27 H (0.52-1.04) mg/dL POC Glucose (mg/dL) (75-99) mg/dL Total Bilirubin 5.5 H (0.2-1.3) mg/dL AST 70 H (14-36) U/L ALT 106 H (9-52) U/L Alkaline Phosphatase 187 H (38-126) U/L Total Protein 5.6 L (6.3-8.2) g/dL Albumin 2.9 L (3.5-5.0) g/dL Microbiology - Last 24 Hours (Table) 01/27/18 00:30 Blood Culture - Preliminary Blood No Growth after 72 hours 01/26/18 23:54 Urine Culture - Final Urine,Voided Assessment and Plan Assessment: Impression: 1. Sepsis septic shock possibly from UTI presently on broad-spectrum antibiotics gradually improving. 2. Elevated liver tests jaundice of unclear etiology. Unclear if we're dealing with chronic liver disease with decompensation versus biliary pathology. Ultrasound as well as CT of the abdomen did not show biliary duct dilatation. Ultrasound demonstrated dilated gallbladder cholelithiasis sludge CBD 0.5 cm. Underlying choledocholithiasis cannot be excluded. 3. Right lower extremity cellulitis. 4. History of CVA right-sided hemiparesis mild aphasia. 5. Warfarin-induced coagulopathy present INR is 1.6. Plan: 1. MRCP attempted unfortunately unsuccessful secondary to body habitus. Daily CMP PT/INR. NPO after MN possible ERCP tomorrow. Hold Coumadin. We'll continue to follow with you. Continue with antibiotics. Assessment and plan of care discussed with Dr. Bosch
--- NOTE | 2018-01-30 11:18 | P.PN ---
Subjective Progress Note Date: 01/30/18 Principal diagnosis: Sepsis, septic shock secondary to cellulitis and UTI with enterococcus This is a 67-year-old female with history of prior right-sided CVA with expressive aphasia, COPD, chronic persistent atrial fibrillation, recurrent cellulitis of the right lower extremity, recurrent urinary tract infections, hypertension and hyperlipidemia. She was initially admitted on this occasion with hypoglycemia, Coumadin toxicity, acute kidney injury and altered mentation status. Currently receiving treatment for a UTI. Patient was seen today in follow-up on the telemetry unit, she continues to be somewhat lethargic but arouses to verbal stimuli. Denies any shortness of breath, pulse ox per nasal cannula at 2 L is 97%, she is afebrile, mildly tachycardic with a heart rate of 108, blood and urine cultures remain negative. White blood cell count 11.1, hemoglobin 13.8, INR 1.6 today. Sodium 135. BUN 49 and creatinine 1.2. LFTs are trending down. Objective - Vital Signs Vital signs: Vital Signs Temp 97.5 F L 01/30/18 08:35 Pulse 84 01/30/18 08:57 Resp 16 01/30/18 08:35 BP 106/77 01/30/18 08:35 Pulse Ox 97 01/30/18 08:35 Intake & Output 01/29/18 01/30/18 01/30/18 18:59 06:59 18:59 Intake Total 703.583 700 Output Total 395 Balance 308.583 700 Weight 142 kg Intake: IV 100 50 .9 50 Cefepime 2 gm In Sodium 50 50 Chloride 0.9% 50 ml @ 100 mls/hr IVPB Q12HR [facility] Rx #:[id number] Intake, IV Titration 363.583 650 Amount DAPTOmycin 500 mg In 50 Sodium Chloride 0.9% 50 ml @ 100 mls/hr IVPB Q24H [facility] Rx#:[id number] Diltiazem 50 mg In Sodium 13.583 Chloride 0.9% 40 ml @ 10 MG/HR 10 mls/hr IV .Q5H [facility] Rx#:[id number] Sodium Chloride 0.9% 1, 350 600 000 ml @ 50 mls/hr IV . Q20H [facility] Rx#:[id number] Oral 240 Output: Urine 395 Other: Voiding Method Indwelling Catheter Diaper Diaper # Voids 1 - Exam Physical Exam: Revealed a 67-year-old female, in no distress, aphasic.. Head: Atraumatic, normocephalic, moist mucous membranes noted. HEENT:[Neck is supple.] [No neck masses.] [No thyromegaly.] [No JVD.] PERRLA, EOMI, no icterus. Chest: [Diminished breath sounds at the bases, no crackles, no wheezes. Cardiac Exam: [Irregular irregular rhythm. Normal S1 and S2, no S3 gallop, no murmur.] Abdomen: [Soft, nontender, no megaly, no rebound, no guarding, normal bowel sounds.] Extremities: Chronic edema and discoloration of lower extremities noted bilaterally, related to chronic and recurrent cellulitis. No open wounds noted. Neurological Exam: Expressive aphasia noted, right-sided hemiplegia is noted, Lymphatics: No lymphadenopathy. Skin: Erythematous changes noted in both lower extremities as noted above. - Labs CBC & Chem 7: 01/30/18 05:53 01/30/18 05:53 Labs: Abnormal Lab Results - Last 24 Hours (Table) 01/29/18 01/29/18 01/29/18 Range/Units 12:05 17:26 21:45 WBC (3.8-10.6) k/uL MCHC (31.0-37.0) g/dL RDW (11.5-15.5) % Plt Count (150-450) k/uL Neutrophils # (1.3-7.7) k/uL Lymphocytes # (1.0-4.8) k/uL PT (9.0-12.0) sec INR (<1.2) Sodium (137-145) mmol/L BUN (7-17) mg/dL Creatinine (0.52-1.04) mg/dL POC Glucose (mg/dL) 140 H 119 H 114 H (75-99) mg/dL Total Bilirubin (0.2-1.3) mg/dL AST (14-36) U/L ALT (9-52) U/L Alkaline Phosphatase (38-126) U/L Total Protein (6.3-8.2) g/dL Albumin (3.5-5.0) g/dL 01/30/18 01/30/18 01/30/18 Range/Units 05:53 05:53 05:53 WBC 11.1 H (3.8-10.6) k/uL MCHC 30.5 L (31.0-37.0) g/dL RDW 18.0 H (11.5-15.5) % Plt Count 123 L (150-450) k/uL Neutrophils # 9.2 H (1.3-7.7) k/uL Lymphocytes # 0.8 L (1.0-4.8) k/uL PT 14.8 H (9.0-12.0) sec INR 1.6 H (<1.2) Sodium 135 L (137-145) mmol/L BUN 49 H (7-17) mg/dL Creatinine 1.27 H (0.52-1.04) mg/dL POC Glucose (mg/dL) (75-99) mg/dL Total Bilirubin 5.5 H (0.2-1.3) mg/dL AST 70 H (14-36) U/L ALT 106 H (9-52) U/L Alkaline Phosphatase 187 H (38-126) U/L Total Protein 5.6 L (6.3-8.2) g/dL Albumin 2.9 L (3.5-5.0) g/dL Microbiology - Last 24 Hours (Table) 01/27/18 00:30 Blood Culture - Preliminary Blood No Growth after 72 hours 01/26/18 23:54 Urine Culture - Final Urine,Voided Assessment and Plan Plan: Assessment and plan: #1 Acute sepsis and septic shock, could be secondary to urinary tract infection or could also be related to cellulitis., Blood cultures are negative so far. Antibiotics on board empirically in the form of cefepime and vancomycin. #2 acute Coumadin toxicity #3 acute hepatitis, etiology is not clear, we will continue to monitor liver enzymes. #4 acute kidney injury, improving most likely secondary to ATN secondary to sepsis and hypotension. #5 chronic atrial fibrillation with RVR. #6 History of CVA, with right-sided hemiplegia and expressive aphasia #7. Essential hypertension #8 recurrent urinary tract infection with enterococcus #9 diabetes, with episode of hypoglycemia on admission. Treated and resolved. #10 chronic obstructive pulmonary disease Plan We will give the patient 2 mg of Coumadin today, check daily PT/INRs. DNP note has been reviewed, I agree with a documented findings and plan of care. Patient was seen and examined.
--- NOTE | 2018-01-30 11:42 | P.PN ---
Subjective Patient stabilized and transferred to selective care. Continues with generalized anasarca. Patient baseline with level of orientation Objective - Vital Signs Vital signs: Vital Signs Temp 97.5 F L 01/30/18 08:35 Pulse 82 01/30/18 11:20 Resp 16 01/30/18 11:20 BP 101/69 01/30/18 11:20 Pulse Ox 97 01/30/18 11:20 Intake & Output 01/29/18 01/30/18 01/30/18 18:59 06:59 18:59 Intake Total 703.583 700 Output Total 395 Balance 308.583 700 Weight 142 kg Intake: IV 100 50 .9 50 Cefepime 2 gm In Sodium 50 50 Chloride 0.9% 50 ml @ 100 mls/hr IVPB Q12HR [facility] Rx #:[id number] Intake, IV Titration 363.583 650 Amount DAPTOmycin 500 mg In 50 Sodium Chloride 0.9% 50 ml @ 100 mls/hr IVPB Q24H [facility] Rx#:[id number] Diltiazem 50 mg In Sodium 13.583 Chloride 0.9% 40 ml @ 10 MG/HR 10 mls/hr IV .Q5H [facility] Rx#:[id number] Sodium Chloride 0.9% 1, 350 600 000 ml @ 50 mls/hr IV . Q20H [facility] Rx#:[id number] Oral 240 Output: Urine 395 Other: Voiding Method Indwelling Catheter Diaper Diaper # Voids 1 - Constitutional General appearance: Present: morbidly obese - EENT Eyes: Present: PERRLA Ears: bilateral: normal - Neck Neck: Present: normal ROM - Respiratory Respiratory: bilateral: diminished - Cardiovascular Rhythm: irregularly irregular - Gastrointestinal General gastrointestinal: Present: soft - Integumentary Integumentary: Present: normal - Musculoskeletal Musculoskeletal: Present: generalized weakness, right sided weakness - Psychiatric Psychiatric Comment(s): Patient has expressive aphasia - Labs CBC & Chem 7: 01/30/18 05:53 01/30/18 05:53 Labs: Abnormal Lab Results - Last 24 Hours (Table) 01/29/18 01/29/18 01/29/18 Range/Units 12:05 17:26 21:45 WBC (3.8-10.6) k/uL MCHC (31.0-37.0) g/dL RDW (11.5-15.5) % Plt Count (150-450) k/uL Neutrophils # (1.3-7.7) k/uL Lymphocytes # (1.0-4.8) k/uL PT (9.0-12.0) sec INR (<1.2) Sodium (137-145) mmol/L BUN (7-17) mg/dL Creatinine (0.52-1.04) mg/dL POC Glucose (mg/dL) 140 H 119 H 114 H (75-99) mg/dL Total Bilirubin (0.2-1.3) mg/dL AST (14-36) U/L ALT (9-52) U/L Alkaline Phosphatase (38-126) U/L Total Protein (6.3-8.2) g/dL Albumin (3.5-5.0) g/dL 01/30/18 01/30/18 01/30/18 Range/Units 05:53 05:53 05:53 WBC 11.1 H (3.8-10.6) k/uL MCHC 30.5 L (31.0-37.0) g/dL RDW 18.0 H (11.5-15.5) % Plt Count 123 L (150-450) k/uL Neutrophils # 9.2 H (1.3-7.7) k/uL Lymphocytes # 0.8 L (1.0-4.8) k/uL PT 14.8 H (9.0-12.0) sec INR 1.6 H (<1.2) Sodium 135 L (137-145) mmol/L BUN 49 H (7-17) mg/dL Creatinine 1.27 H (0.52-1.04) mg/dL POC Glucose (mg/dL) (75-99) mg/dL Total Bilirubin 5.5 H (0.2-1.3) mg/dL AST 70 H (14-36) U/L ALT 106 H (9-52) U/L Alkaline Phosphatase 187 H (38-126) U/L Total Protein 5.6 L (6.3-8.2) g/dL Albumin 2.9 L (3.5-5.0) g/dL Microbiology - Last 24 Hours (Table) 01/27/18 00:30 Blood Culture - Preliminary Blood No Growth after 72 hours 01/26/18 23:54 Urine Culture - Final Urine,Voided Assessment and Plan Plan: Assessment Change in mental status changes acute metabolic encephalopathy secondary to sepsis urinary tract infection cellulitis Elevated bilirubin atrial fibrillation with RVR Hypertension Acute renal failure possibly prerenal Hyponatremia Hyperkalemia Coumadin coagulopathy History of congestive heart failure unknown ejection fraction chronic COPD History of CVA with right-sided hemiparesis expressive aphasia Gait dysfunction GERD Hyperlipidemia Gallstones with dilated gallbladder History of aortic stenosis Secondary pulmonary hypertension Lower extremity cellulitis Hypotension Obesity with BMI of 36.8 Plan Continue consultation with gastroenterology had failed MRCP Continue consultation with Dr. Sage Rivera and cardiology
[2018-01-30 11:52] LABS: Glucose,Whole Blood 101 mg/dL (75-99)
[2018-01-30] MEDS: FOLIC ACID 1 MG TAB PO SCH (12:29)
[2018-01-30] MEDS: THIAMINE 100 MG TAB PO SCH (12:29)
[2018-01-30] MEDS: MULTIVITAMINS, THERA 1 EACH TAB PO SCH (12:29)
--- NOTE | 2018-01-30 12:35 | P.PN ---
<Donna Montanezeduard Davila - Last Filed: 01/30/18 12:29> Subjective Progress Note Date: 01/30/18 67-year-old female seen just returned from attempted MRCP done by GI service sedated will open eyes to verbal stimuli PICC line was inserted yesterday. The MRCP was attempted but was not successful secondary to body habitus. Nursing reports patient has not been expressing any abdominal pain upon palpitation to the abdomen no facial grimacing Patient was being treated for acute sepsis with septic shock with the UTI gram- negative bacteremia Objective - Vital Signs Vital signs: Vital Signs Temp 97.5 F L 01/30/18 08:35 Pulse 82 01/30/18 11:20 Resp 16 01/30/18 11:20 BP 101/69 01/30/18 11:20 Pulse Ox 97 01/30/18 11:20 Intake & Output 01/29/18 01/30/18 01/30/18 18:59 06:59 18:59 Intake Total 703.583 700 Output Total 395 Balance 308.583 700 Weight 142 kg Intake: IV 100 50 .9 50 Cefepime 2 gm In Sodium 50 50 Chloride 0.9% 50 ml @ 100 mls/hr IVPB Q12HR [facility] Rx #:[id number] Intake, IV Titration 363.583 650 Amount DAPTOmycin 500 mg In 50 Sodium Chloride 0.9% 50 ml @ 100 mls/hr IVPB Q24H [facility] Rx#:[id number] Diltiazem 50 mg In Sodium 13.583 Chloride 0.9% 40 ml @ 10 MG/HR 10 mls/hr IV .Q5H [facility] Rx#:[id number] Sodium Chloride 0.9% 1, 350 600 000 ml @ 50 mls/hr IV . Q20H [facility] Rx#:[id number] Oral 240 Output: Urine 395 Other: Voiding Method Indwelling Catheter Diaper Diaper # Voids 1 - Exam Exam 67-year-old female resting in bed appears in no acute distress Lungs diminished at the bases sats are 97% on 2 L Heart S1-S2 audible heart rate in the 80s to 90s Abdomen obese soft nondistended nontender no facial grimacing with palpitation to the abdominal wall Bermudez catheter in place no stool Extremities bilateral mild nonpitting pedal edema right lower extremity mild erythema - Labs CBC & Chem 7: 01/30/18 05:53 01/30/18 05:53 Labs: Abnormal Lab Results - Last 24 Hours (Table) 01/29/18 01/29/18 01/30/18 Range/Units 17:26 21:45 05:53 WBC 11.1 H (3.8-10.6) k/uL MCHC 30.5 L (31.0-37.0) g/dL RDW 18.0 H (11.5-15.5) % Plt Count 123 L (150-450) k/uL Neutrophils # 9.2 H (1.3-7.7) k/uL Lymphocytes # 0.8 L (1.0-4.8) k/uL PT (9.0-12.0) sec INR (<1.2) Sodium (137-145) mmol/L BUN (7-17) mg/dL Creatinine (0.52-1.04) mg/dL POC Glucose (mg/dL) 119 H 114 H (75-99) mg/dL Total Bilirubin (0.2-1.3) mg/dL AST (14-36) U/L ALT (9-52) U/L Alkaline Phosphatase (38-126) U/L Total Protein (6.3-8.2) g/dL Albumin (3.5-5.0) g/dL 01/30/18 01/30/18 01/30/18 Range/Units 05:53 05:53 11:37 WBC (3.8-10.6) k/uL MCHC (31.0-37.0) g/dL RDW (11.5-15.5) % Plt Count (150-450) k/uL Neutrophils # (1.3-7.7) k/uL Lymphocytes # (1.0-4.8) k/uL PT 14.8 H (9.0-12.0) sec INR 1.6 H (<1.2) Sodium 135 L (137-145) mmol/L BUN 49 H (7-17) mg/dL Creatinine 1.27 H (0.52-1.04) mg/dL POC Glucose (mg/dL) 101 H (75-99) mg/dL Total Bilirubin 5.5 H (0.2-1.3) mg/dL AST 70 H (14-36) U/L ALT 106 H (9-52) U/L Alkaline Phosphatase 187 H (38-126) U/L Total Protein 5.6 L (6.3-8.2) g/dL Albumin 2.9 L (3.5-5.0) g/dL Microbiology - Last 24 Hours (Table) 01/27/18 00:30 Blood Culture - Preliminary Blood No Growth after 72 hours 01/26/18 23:54 Urine Culture - Final Urine,Voided Assessment and Plan Assessment: Impression Present on admission acute sepsis with septic shock suspect due to UTI infectious disease following Present on admission acute Coumadin toxicity Chronic persistent atrial fibrillation with episodes of rapid ventricular response A prior CVA resulting in right side hemiplegia and expressive aphasia CAT scan of the abdomen pelvis without contrast reviewing the report no free air distention of the gallbladder Ultrasound of the abdomen showed dilated gallbladder with gallstone consistent with acute and chronic cholecystitisc Ultrasound the liver minimal amount of ascites Morbid obesity BMI 49 Present on admission elevated liver enzymes Ultrasound abdomen demonstrated dilated gallbladder cholelithiasis sludge common bile duct .5cm MRCP attempted but unsuccessful secondary to body habitus Plan No evidence of an acute surgical abdomen at this time we'll sign off and re- eval as needed Continue low-fat diet Can be followed in an outpatient setting The above impression and plan of care have been discussed and directed by signing physician. Mary Montanez nurse practitioner acting as scribe for signing physician. <Gianna Astudillo - Last Filed: 01/30/18 18:26> Objective - Vital Signs Vital signs: Vital Signs Temp 97.4 F L 01/30/18 16:25 Pulse 95 01/30/18 16:25 Resp 16 01/30/18 16:32 BP 115/72 01/30/18 16:25 Pulse Ox 96 01/30/18 16:25 Intake & Output 01/29/18 01/30/18 01/30/18 18:59 06:59 18:59 Intake Total 336.357 0449 Output Total 395 Balance 090.408 9168 Weight 142 kg Intake: IV 100 100 .9 50 Cefepime 2 gm In Sodium 50 100 Chloride 0.9% 50 ml @ 100 mls/hr IVPB Q12HR [facility] Rx #:[id number] Intake, IV Titration 431.073 6263 Amount DAPTOmycin 500 mg In 50 Sodium Chloride 0.9% 50 ml @ 100 mls/hr IVPB Q24H [facility] Rx#:[id number] Diltiazem 50 mg In Sodium 13.583 Chloride 0.9% 40 ml @ 10 MG/HR 10 mls/hr IV .Q5H [facility] Rx#:[id number] Sodium Chloride 0.9% 1, 350 1000 000 ml @ 50 mls/hr IV . Q20H [facility] Rx#:[id number] Oral 240 340 Output: Urine 395 Other: Voiding Method Indwelling Catheter Diaper Diaper # Voids 1 1 - Labs CBC & Chem 7: 01/30/18 05:53 01/30/18 05:53 Labs: Abnormal Lab Results - Last 24 Hours (Table) 01/29/18 01/30/18 01/30/18 Range/Units 21:45 05:53 05:53 WBC 11.1 H (3.8-10.6) k/uL MCHC 30.5 L (31.0-37.0) g/dL RDW 18.0 H (11.5-15.5) % Plt Count 123 L (150-450) k/uL Neutrophils # 9.2 H (1.3-7.7) k/uL Lymphocytes # 0.8 L (1.0-4.8) k/uL PT 14.8 H (9.0-12.0) sec INR 1.6 H (<1.2) Sodium (137-145) mmol/L BUN (7-17) mg/dL Creatinine (0.52-1.04) mg/dL POC Glucose (mg/dL) 114 H (75-99) mg/dL Total Bilirubin (0.2-1.3) mg/dL AST (14-36) U/L ALT (9-52) U/L Alkaline Phosphatase (38-126) U/L Total Protein (6.3-8.2) g/dL Albumin (3.5-5.0) g/dL 01/30/18 01/30/18 01/30/18 Range/Units 05:53 11:37 17:00 WBC (3.8-10.6) k/uL MCHC (31.0-37.0) g/dL RDW (11.5-15.5) % Plt Count (150-450) k/uL Neutrophils # (1.3-7.7) k/uL Lymphocytes # (1.0-4.8) k/uL PT (9.0-12.0) sec INR (<1.2) Sodium 135 L (137-145) mmol/L BUN 49 H (7-17) mg/dL Creatinine 1.27 H (0.52-1.04) mg/dL POC Glucose (mg/dL) 101 H 163 H (75-99) mg/dL Total Bilirubin 5.5 H (0.2-1.3) mg/dL AST 70 H (14-36) U/L ALT 106 H (9-52) U/L Alkaline Phosphatase 187 H (38-126) U/L Total Protein 5.6 L (6.3-8.2) g/dL Albumin 2.9 L (3.5-5.0) g/dL Microbiology - Last 24 Hours (Table) 01/27/18 00:30 Blood Culture - Preliminary Blood No Growth after 72 hours
[2018-01-30 17:07] LABS: Glucose,Whole Blood 163 mg/dL (75-99)
[2018-01-30] MEDS ORDERED: WARFARIN 2 MG TAB PO ONE (18:00)
[2018-01-30 20:52] LABS: Glucose,Whole Blood 245 mg/dL (75-99)
--- NOTE | 2018-01-30 21:02 | P.PN ---
Progress Note - Text Progress Note Date: 01/30/18 Patient reevaluated this evening. On exam, no right upper quadrant or epigastric abdominal pain. Patient also denies any abdominal pain. Management per GI. We'll follow as needed signoff in the interim. Please reconsult if needed.
[2018-01-30] MEDS: DAPTOmycin 500 MG in SODIUM CHLORIDE 0.9% 50 ML IVPB SCH (21:46)
--- NOTE | 2018-01-30 22:22 | PN ---
PROGRESS NOTE Patient is seen for followup for acute kidney injury secondary to hypotension, sepsis. Renal function has improved significantly. Patient is maintained on 50 mL of normal saline. She is awake and responds well. Patient has had some oral intake. On examination, blood pressure was 101/69, heart rate 79 per minute. She is afebrile. EXAMINATION OF THE HEART: S1, S2. EXAMINATION OF LUNGS: Decreased breath sounds in the bases. ABDOMEN: Soft, non-tender. Examination of lower extremities shows chronic skin changes with chronic cellulitis, worse on the right leg. [employer] exam shows right hemiparesis. Labs show sodium 135, potassium 4.3, serum creatinine 1.27, BUN 49, hemoglobin 13.8 g/dL. ASSESSMENT: 1. Acute kidney injury secondary to hypotension and hypoperfusion, currently improving. 2. Sepsis, etiology unclear, possibly related to cellulitis. Urine culture and blood cultures have been negative. The urine, however, did show significant pyuria and patient had a previous enterococcus urinary tract infection on 01/01/2018. She was on vancomycin, which is now discontinued. 3. Elevated liver enzymes and hyperbilirubinemia. Patient was scheduled for MRCP; however, it was unsuccessful given her large body habitus. 4. History of cerebrovascular accident with right hemiparesis. 5. Atrial fibrillation with rapid ventricular response on initial admission, currently with controlled ventricular response. PLAN: Decrease IV fluids. Continue to encourage increased oral intake. Repeat labs in a.m. JAREN / EPI: [id number] /
[2018-01-31] MEDS: INSULIN ASPART 100 UNIT/ML 1 ML 10 ML VIAL SQ SCH ×4 (06:09→21:01)
[2018-01-31 06:13] LABS: Glucose,Whole Blood 102 mg/dL (75-99)
[2018-01-31 06:57] LABS: INR 1.5 (<1.2); Prothrombin Time 14.2 sec (9.0-12.0)
[2018-01-31 07:00] LABS: Anisocytosis Slight; Basophils % (A) 0 %; Eosinophils # (A) 0.1 k/uL (0-0.7); Eosinophils % (A) 1 %; HCT 45.2 % (34.0-46.0); Hypochromasia Moderate; Lymphocytes # (A) 0.9 k/uL (1.0-4.8); Lymphocytes % (A) 7 %; MCH 30.3 pg (25.0-35.0); MCHC 31.1 g/dL (31.0-37.0); MCV 97.5 fL (80.0-100.0); Macrocytosis Slight; Mean Platelet Volume 8.8; Monocytes # (A) 1.1 k/uL (0-1.0); Monocytes % (A) 9 %; Neutrophils # (A) 10.2 k/uL (1.3-7.7); Neutrophils % (A) 82 %; Platelet Count 104 k/uL (150-450); RBC 4.63 m/uL (3.80-5.40); WBC 12.5 k/uL (3.8-10.6)
[2018-01-31 07:08] LABS: Albumin 2.9 g/dL (3.5-5.0); Calcium 8.7 mg/dL (8.4-10.2); Total Bilirubin 4.7 mg/dL (0.2-1.3); Total Protein 5.7 g/dL (6.3-8.2)
[2018-01-31 07:14] LABS: Magnesium 2.4 mg/dL (1.6-2.3); Potassium 4.9 mmol/L (3.5-5.1)
[2018-01-31] MEDS: IPRATROPIUM-ALBUTEROL 3 ML NEB INHALATION SCH ×4 (08:04→21:16)
[2018-01-31 08:46] LABS: Polychromasia Present
[2018-01-31] MEDS: PANTOPRAZOLE 40 MG/10 ML VIAL IVP SCH ×2 (09:17→21:02)
[2018-01-31] MEDS: CEFEPIME 2 GM in SODIUM CHLORIDE 0.9% 50 ML IVPB SCH ×2 (09:17→21:01)
[2018-01-31] MEDS: LEVOTHYROXINE 25 MCG TAB PO SCH (10:49)
[2018-01-31] MEDS: METOPROLOL TARTRATE 50 MG TAB PO SCH (10:49)
[2018-01-31] MEDS: MULTIVITAMINS, THERA 1 EACH TAB PO SCH (10:50)
[2018-01-31] MEDS: THIAMINE 100 MG TAB PO SCH (10:50)
[2018-01-31] MEDS: FOLIC ACID 1 MG TAB PO SCH (10:50)
[2018-01-31] MEDS: DILTIAZEM ORAL 30 MG TAB PO SCH ×3 (10:52→21:39)
--- NOTE | 2018-01-31 11:20 | P.PN ---
Subjective Progress Note Date: 01/31/18 Principal diagnosis: Elevated liver enzymes. 67-year-old female admitted with acute sepsis septic shock UTI gram-negative bacteremia enterococcus infection. PICC line inserted. Reevaluated today in regards to elevated liver enzymes. Etiology unclear. MRCP attempted but unsuccessful secondary to body habitus. Total bilirubin slightly improved today 4.7. INR 1.5. Afebrile. Presently reports no abdominal pain. Objective - Vital Signs Vital signs: Vital Signs Temp 98.4 F 01/31/18 04:00 Pulse 84 01/31/18 08:17 Resp 17 01/31/18 04:00 BP 110/76 01/31/18 04:00 Pulse Ox 100 01/31/18 04:00 Intake & Output 01/30/18 01/31/18 01/31/18 18:59 06:59 18:59 Intake Total 1490 Balance 1490 Weight 123 kg Intake: IV 100 Cefepime 2 gm In Sodium 100 Chloride 0.9% 50 ml @ 100 mls/hr IVPB Q12HR [facility] Rx #:[id number] Intake, IV Titration 1050 Amount DAPTOmycin 500 mg In 50 Sodium Chloride 0.9% 50 ml @ 100 mls/hr IVPB Q24H [facility] Rx#:[id number] Sodium Chloride 0.9% 1, 1000 000 ml @ 50 mls/hr IV . Q20H [facility] Rx#:[id number] Oral 340 Other: Voiding Method Diaper Diaper # Voids 1 2 - Exam General appearance: The patient is alert, oriented, in no acute distress. Jaundice. HET: Head is normocephalic and atraumatic. Pupils are equal and reactive. Sclerae icterus. Oropharynx is clear without lesions. Neck: Supple without lymphadenopathy. Trachea midline. Heart: S1 S2. Regular rate and rhythm. Lungs: No crackles or wheezes are heard. Abdomen: Soft, mild tenderness to midabdomen, nondistended with bowel sounds. No peritoneal signs. No palpable organomegaly or masses. Extremities: Mild erythema right lower extremity. Mild bilateral pedal edema. Radial and pedal pulses are 2/4 bilaterally. Neurological: No focal deficits. Strength and sensation are grossly intact. - Labs CBC & Chem 7: 01/31/18 05:46 01/31/18 05:46 Labs: Abnormal Lab Results - Last 24 Hours (Table) 01/30/18 01/30/18 01/30/18 Range/Units 11:37 17:00 20:50 WBC (3.8-10.6) k/uL RDW (11.5-15.5) % Plt Count (150-450) k/uL Neutrophils # (1.3-7.7) k/uL Lymphocytes # (1.0-4.8) k/uL Monocytes # (0-1.0) k/uL PT (9.0-12.0) sec INR (<1.2) Sodium (137-145) mmol/L Carbon Dioxide (22-30) mmol/L BUN (7-17) mg/dL Creatinine (0.52-1.04) mg/dL POC Glucose (mg/dL) 101 H 163 H 245 H (75-99) mg/dL Magnesium (1.6-2.3) mg/dL Total Bilirubin (0.2-1.3) mg/dL AST (14-36) U/L ALT (9-52) U/L Alkaline Phosphatase (38-126) U/L Total Protein (6.3-8.2) g/dL Albumin (3.5-5.0) g/dL 01/31/18 01/31/18 01/31/18 Range/Units 05:46 05:46 05:46 WBC 12.5 H (3.8-10.6) k/uL RDW 18.0 H (11.5-15.5) % Plt Count 104 L (150-450) k/uL Neutrophils # 10.2 H (1.3-7.7) k/uL Lymphocytes # 0.9 L (1.0-4.8) k/uL Monocytes # 1.1 H (0-1.0) k/uL PT 14.2 H (9.0-12.0) sec INR 1.5 H (<1.2) Sodium 133 L (137-145) mmol/L Carbon Dioxide 20 L (22-30) mmol/L BUN 49 H (7-17) mg/dL Creatinine 1.23 H (0.52-1.04) mg/dL POC Glucose (mg/dL) (75-99) mg/dL Magnesium 2.4 H (1.6-2.3) mg/dL Total Bilirubin 4.7 H (0.2-1.3) mg/dL AST 58 H (14-36) U/L ALT 81 H (9-52) U/L Alkaline Phosphatase 179 H (38-126) U/L Total Protein 5.7 L (6.3-8.2) g/dL Albumin 2.9 L (3.5-5.0) g/dL 01/31/18 Range/Units 06:00 WBC (3.8-10.6) k/uL RDW (11.5-15.5) % Plt Count (150-450) k/uL Neutrophils # (1.3-7.7) k/uL Lymphocytes # (1.0-4.8) k/uL Monocytes # (0-1.0) k/uL PT (9.0-12.0) sec INR (<1.2) Sodium (137-145) mmol/L Carbon Dioxide (22-30) mmol/L BUN (7-17) mg/dL Creatinine (0.52-1.04) mg/dL POC Glucose (mg/dL) 102 H (75-99) mg/dL Magnesium (1.6-2.3) mg/dL Total Bilirubin (0.2-1.3) mg/dL AST (14-36) U/L ALT (9-52) U/L Alkaline Phosphatase (38-126) U/L Total Protein (6.3-8.2) g/dL Albumin (3.5-5.0) g/dL Microbiology - Last 24 Hours (Table) 01/27/18 00:30 Blood Culture - Preliminary Blood No Growth after 96 hours Assessment and Plan Assessment: Impression: 1. Sepsis septic shock possibly from UTI presently on broad-spectrum antibiotics gradually improving. 2. Elevated liver tests jaundice of unclear etiology. Unclear if we're dealing with chronic liver disease with decompensation versus biliary pathology. Ultrasound as well as CT of the abdomen did not show biliary duct dilatation. Ultrasound demonstrated dilated gallbladder cholelithiasis sludge CBD 0.5 cm. Underlying choledocholithiasis cannot be excluded. 3. Right lower extremity cellulitis. 4. History of CVA right-sided hemiparesis mild aphasia. 5. Warfarin-induced coagulopathy present INR is 1.6. Plan: 1. MRCP attempted unfortunately unsuccessful secondary to body habitus. Daily CMP PT/INR. Dr. Bosch recommends observing LFTS for another 24 hours considering Total bilirubin improved today; ERCP cancelled today. Possible ERCP tomorrow. Continue to hold Coumadin. We'll continue to follow with you. Continue with antibiotics. Assessment and plan of care discussed with Dr. Bosch
--- NOTE | 2018-01-31 11:35 | P.PN ---
Subjective Progress Note Date: 01/31/18 Principal diagnosis: Acute sepsis, septic shock secondary to cellulitis and urinary tract infection secondary to enterococcus. This is a 67-year-old female patient with previous history of CVA right-sided with expressive aphasia and addition to COPD, chronic atrial fibrillation, CHF with a dysfunction, recurrent cellulitis of the right lower extremity, recurrent urine checked infection with enterococcus he showing klebsiella species in addition to hypertension and hyperlipidemia. This patient came in yesterday from [facility] with hypoglycemia, Coumadin toxicity, acute kidney injury, altered mentation diminished level of consciousness. Her baseline is awake and communicating via saying yes and no and using different signs. I was told that yesterday her mental status was down and she got admitted to the medical floor where she was found to be hypoglycemic with a blood sugar of 30. The patient was also found to be hypotensive. The hypoglycemia was treated. The patient got 500 disease of normal saline bolus and following that the patient got transferred to the intensive care unit and she was placed on pressors through an external jugular line in her right neck. Currently she is on norepinephrine infusion at 10 mics. She is a bit more responsive and alert. CAT scan of the brain was done and it showed encephalomalacia and old large left middle cerebral artery infarct with multiple lacunar infarcts unchanged compared to her prior evaluations. Patient was given 2 mg of vitamin K and INR dropped down to 6.4. The patient was given IV Rocephin as an empiric antibiotic coverage. UA was suggestive of recurrent UTI. The patient has no active cellulitis in the right lower extremity. She is in atrial fibrillation. She is not rapid ventricular response and the heart rate is around 120. Nevertheless, since she came up to the ICU, she has become much more responsive. Typically stakes insulin and metformin for her blood sugars. Of note, abnormalities in her LFTs. Bilirubin AST and ALP are quite elevated. Ultrasound of the gallbladder showed a dilated gallbladder with gallstones and echogenic bile consistent with acute and chronic cholecystitis. Gallbladder measured 6 cm in size. Limited evaluation of the liver showed no evidence of any liver mass. Note that dilated ducts. Minimal amount of ascites. Right kidney shows no evidence of any hydronephrosis. Reevaluated today on 01/28/2018, patient remains relatively hypotensive, requiring 2 g of norepinephrine, she remains tachycardic, in atrial fibrillation with RVR, remains on Cardizem at 10 mg per hour. Remains on antibiotics for her presumptive sepsis and septic shock. She has abnormal renal functioning with BUN of 53 creatinine 1.40, improved over the last 2 days. Continues to have leukocytosis with WBC count of 14.4, hemoglobin is 13.6 , INR is 3.2. Continues to have elevated liver enzymes with AST of 193 ALT 160 and alkaline phosphatase of 187. Remains on cefepime and vancomycin for presumptive sepsis. And septic shock. Patient is otherwise relatively asymptomatic, denies any headache no blurred vision no dizziness no chest pain no cough no wheezing. Patient was examined today on 02/08/2018, she was still in the ICU at the time of my evaluation. Off norepinephrine, remains on Cardizem drip at 5 mg per hour for atrial fibrillation with RVR. Clinically the patient is feeling much better, breathing a lot easier, denies any shortness of breath no cough no wheezing no chest pain. Labs were reviewed, INR is 1.9. Electrolytes are normal BUN is 52 creatinine is 1.28. All improving. Liver enzymes remain a bit elevated. Patient is recovering from acute septic shock secondary to UTI. Today I have recommended transferring the patient out of the ICU to a monitor bed on selective as she remains ill, and she has multiple complex medical issues. Her issues could be managed on a monitor bed on selective today. Patient is still being followed by many consultants on the case On 01/30/2018 patient seen in follow-up on selective care unit. She was transferred out of the intensive care yesterday, she is a bit lethargic on today 's exam, but she easily arouses to verbal stimuli, and gives one or 2 word answers. This is pretty much her baseline as far as speech. Denies any distress, denies any shortness of breath, pulse ox on 2 L per nasal cannula is 97%, she is afebrile, vital tachycardic, with a heart rate in 111 bpm. blood and urine cultures remain negative. Today's labs were noted, WBC is 11.1, hemoglobin is 13.8, INR is 1.6, sodium is 135, the rest of the electrolytes are within normal limits, renal profile is improving, BUN is down to 49, creatinine is 1.27. LFTs are trending down. She denies any abdominal discomfort. Lung sounds are clear to auscultation, diminished at the bases. She continues on antibiotic coverage including cefepime, daptomycin. ID service is following. No acute distress, patient has severe generalized weakness. The patient is seen again today 01/31/2018 in follow-up on the selective care unit. She is currently awake and alert in no acute distress. She denies any worsening shortness of breath, cough or congestion. She is maintaining good O2 saturations in the 90s on room air. She's been afebrile. Blood culture reveals no growth. She remains on cefepime and daptomycin. White count 12.5. Hemoglobin 14.0. Creatinine 1.23. INR 1.5. Liver enzymes continue to trend down. MRCP was unable to be completed due to body habitus. ERCP was canceled for today. Objective - Vital Signs Vital signs: Vital Signs Temp 96.5 F L 01/31/18 08:00 Pulse 84 01/31/18 08:17 Resp 17 01/31/18 04:00 BP 94/68 01/31/18 08:00 Pulse Ox 93 L 01/31/18 08:00 Intake & Output 01/30/18 01/31/18 01/31/18 18:59 06:59 18:59 Intake Total 1490 Balance 1490 Weight 123 kg Intake: IV 100 Cefepime 2 gm In Sodium 100 Chloride 0.9% 50 ml @ 100 mls/hr IVPB Q12HR [facility] Rx #:[id number] Intake, IV Titration 1050 Amount DAPTOmycin 500 mg In 50 Sodium Chloride 0.9% 50 ml @ 100 mls/hr IVPB Q24H [facility] Rx#:[id number] Sodium Chloride 0.9% 1, 1000 000 ml @ 50 mls/hr IV . Q20H [facility] Rx#:[id number] Oral 340 Other: Voiding Method Diaper Diaper Diaper # Voids 1 2 - Exam Physical Exam: Revealed a 67-year-old female, in no distress, aphasic.. Head: Atraumatic, normocephalic, moist mucous membranes noted. HEENT:Neck is supple. No neck masses. No thyromegaly. No JVD. PERRLA, EOMI, no icterus. Chest: Diminished breath sounds at the bases, no crackles, no wheezes. Cardiac Exam: Irregular irregular rhythm. Normal S1 and S2, no S3 gallop, no murmur. Abdomen: Soft, nontender, no megaly, no rebound, no guarding, normal bowel sounds. Extremities: Chronic edema and discoloration of lower extremities noted bilaterally, related to chronic and recurrent cellulitis. No open wounds noted. Neurological Exam: Expressive aphasia noted, right-sided hemiplegia is noted, Lymphatics: No lymphadenopathy. Skin: Erythematous changes noted in both lower extremities as noted above. - Labs CBC & Chem 7: 01/31/18 05:46 01/31/18 05:46 Labs: Abnormal Lab Results - Last 24 Hours (Table) 01/30/18 01/30/18 01/30/18 Range/Units 11:37 17:00 20:50 WBC (3.8-10.6) k/uL RDW (11.5-15.5) % Plt Count (150-450) k/uL Neutrophils # (1.3-7.7) k/uL Lymphocytes # (1.0-4.8) k/uL Monocytes # (0-1.0) k/uL PT (9.0-12.0) sec INR (<1.2) Sodium (137-145) mmol/L Carbon Dioxide (22-30) mmol/L BUN (7-17) mg/dL Creatinine (0.52-1.04) mg/dL POC Glucose (mg/dL) 101 H 163 H 245 H (75-99) mg/dL Magnesium (1.6-2.3) mg/dL Total Bilirubin (0.2-1.3) mg/dL AST (14-36) U/L ALT (9-52) U/L Alkaline Phosphatase (38-126) U/L Total Protein (6.3-8.2) g/dL Albumin (3.5-5.0) g/dL 01/31/18 01/31/18 01/31/18 Range/Units 05:46 05:46 05:46 WBC 12.5 H (3.8-10.6) k/uL RDW 18.0 H (11.5-15.5) % Plt Count 104 L (150-450) k/uL Neutrophils # 10.2 H (1.3-7.7) k/uL Lymphocytes # 0.9 L (1.0-4.8) k/uL Monocytes # 1.1 H (0-1.0) k/uL PT 14.2 H (9.0-12.0) sec INR 1.5 H (<1.2) Sodium 133 L (137-145) mmol/L Carbon Dioxide 20 L (22-30) mmol/L BUN 49 H (7-17) mg/dL Creatinine 1.23 H (0.52-1.04) mg/dL POC Glucose (mg/dL) (75-99) mg/dL Magnesium 2.4 H (1.6-2.3) mg/dL Total Bilirubin 4.7 H (0.2-1.3) mg/dL AST 58 H (14-36) U/L ALT 81 H (9-52) U/L Alkaline Phosphatase 179 H (38-126) U/L Total Protein 5.7 L (6.3-8.2) g/dL Albumin 2.9 L (3.5-5.0) g/dL 01/31/18 Range/Units 06:00 WBC (3.8-10.6) k/uL RDW (11.5-15.5) % Plt Count (150-450) k/uL Neutrophils # (1.3-7.7) k/uL Lymphocytes # (1.0-4.8) k/uL Monocytes # (0-1.0) k/uL PT (9.0-12.0) sec INR (<1.2) Sodium (137-145) mmol/L Carbon Dioxide (22-30) mmol/L BUN (7-17) mg/dL Creatinine (0.52-1.04) mg/dL POC Glucose (mg/dL) 102 H (75-99) mg/dL Magnesium (1.6-2.3) mg/dL Total Bilirubin (0.2-1.3) mg/dL AST (14-36) U/L ALT (9-52) U/L Alkaline Phosphatase (38-126) U/L Total Protein (6.3-8.2) g/dL Albumin (3.5-5.0) g/dL Microbiology - Last 24 Hours (Table) 01/27/18 00:30 Blood Culture - Preliminary Blood No Growth after 96 hours Assessment and Plan Assessment: Assessment: 1 Acute sepsis and septic shock, could be secondary to urinary tract infection or could also be related to cellulitis., Blood cultures are negative so far. Antibiotics on board empirically in the form of cefepime and vancomycin. 2 acute Coumadin toxicity 3 acute hepatitis, etiology is not clear, we will continue to monitor liver enzymes. 4 acute kidney injury, improving most likely secondary to ATN secondary to sepsis and hypotension. 5 chronic atrial fibrillation with RVR. 6 history of CVA, with right-sided hemiplegia and expressive aphasia 7 essential hypertension 8 recurrent urinary tract infection with enterococcus 9 diabetes, with episode of hypoglycemia on admission. Treated and resolved. 10 chronic obstructive pulmonary disease, presently inactive. Plan: The patient was seen and evaluated by Dr. Delcid. She is improving from the pulmonary and critical care standpoint poor. More awake and alert today. Liver enzymes are trending down. ERCP is on hold. Antibiotics per ID services. We'll continue to follow. I, the cosigning physician, performed a history & physical examination of the patient. Lungs sounds are clear, diminished. Maintaining good O2 saturations in the 90s on 2 L/m per nasal cannula. I discussed the assessment and plan of care with my nurse practitioner, Vicki Guerrero. I attest to the above note as dictated by her.
[2018-01-31 12:00] LABS: Glucose,Whole Blood 191 mg/dL (75-99)
--- NOTE | 2018-01-31 12:12 | P.PN ---
Subjective Patient more awake and alert today. Scheduled for ERCP tomorrow continues on antibiotics Objective - Vital Signs Vital signs: Vital Signs Temp 96.5 F L 01/31/18 08:00 Pulse 80 01/31/18 11:54 Resp 17 01/31/18 04:00 BP 94/68 01/31/18 08:00 Pulse Ox 93 L 01/31/18 08:00 Intake & Output 01/30/18 01/31/18 01/31/18 18:59 06:59 18:59 Intake Total 1490 Balance 1490 Weight 123 kg Intake: IV 100 Cefepime 2 gm In Sodium 100 Chloride 0.9% 50 ml @ 100 mls/hr IVPB Q12HR [facility] Rx #:[id number] Intake, IV Titration 1050 Amount DAPTOmycin 500 mg In 50 Sodium Chloride 0.9% 50 ml @ 100 mls/hr IVPB Q24H [facility] Rx#:[id number] Sodium Chloride 0.9% 1, 1000 000 ml @ 50 mls/hr IV . Q20H [facility] Rx#:[id number] Oral 340 Other: Voiding Method Diaper Diaper Diaper # Voids 1 2 - Constitutional General appearance: Present: mild distress, morbidly obese - EENT Eyes: Present: PERRLA Ears: bilateral: normal - Neck Neck: Present: normal ROM - Respiratory Respiratory: bilateral: diminished - Cardiovascular Rhythm: irregularly irregular Abnormal Heart Sounds: Present: systolic murmur - Gastrointestinal General gastrointestinal: Present: soft Localized gastrointestinal: tender: RUQ - Integumentary Integumentary: Present: cellulitis - Musculoskeletal Musculoskeletal: Present: generalized weakness, right sided weakness - Psychiatric Psychiatric Comment(s): Patient is a expressive aphasia Psychiatric: Present: A&O x's 3 - Labs CBC & Chem 7: 01/31/18 05:46 01/31/18 05:46 Labs: Abnormal Lab Results - Last 24 Hours (Table) 01/30/18 01/30/18 01/31/18 Range/Units 17:00 20:50 05:46 WBC 12.5 H (3.8-10.6) k/uL RDW 18.0 H (11.5-15.5) % Plt Count 104 L (150-450) k/uL Neutrophils # 10.2 H (1.3-7.7) k/uL Lymphocytes # 0.9 L (1.0-4.8) k/uL Monocytes # 1.1 H (0-1.0) k/uL PT (9.0-12.0) sec INR (<1.2) Sodium (137-145) mmol/L Carbon Dioxide (22-30) mmol/L BUN (7-17) mg/dL Creatinine (0.52-1.04) mg/dL POC Glucose (mg/dL) 163 H 245 H (75-99) mg/dL Magnesium (1.6-2.3) mg/dL Total Bilirubin (0.2-1.3) mg/dL AST (14-36) U/L ALT (9-52) U/L Alkaline Phosphatase (38-126) U/L Total Protein (6.3-8.2) g/dL Albumin (3.5-5.0) g/dL 01/31/18 01/31/18 01/31/18 Range/Units 05:46 05:46 06:00 WBC (3.8-10.6) k/uL RDW (11.5-15.5) % Plt Count (150-450) k/uL Neutrophils # (1.3-7.7) k/uL Lymphocytes # (1.0-4.8) k/uL Monocytes # (0-1.0) k/uL PT 14.2 H (9.0-12.0) sec INR 1.5 H (<1.2) Sodium 133 L (137-145) mmol/L Carbon Dioxide 20 L (22-30) mmol/L BUN 49 H (7-17) mg/dL Creatinine 1.23 H (0.52-1.04) mg/dL POC Glucose (mg/dL) 102 H (75-99) mg/dL Magnesium 2.4 H (1.6-2.3) mg/dL Total Bilirubin 4.7 H (0.2-1.3) mg/dL AST 58 H (14-36) U/L ALT 81 H (9-52) U/L Alkaline Phosphatase 179 H (38-126) U/L Total Protein 5.7 L (6.3-8.2) g/dL Albumin 2.9 L (3.5-5.0) g/dL 01/31/18 Range/Units 11:58 WBC (3.8-10.6) k/uL RDW (11.5-15.5) % Plt Count (150-450) k/uL Neutrophils # (1.3-7.7) k/uL Lymphocytes # (1.0-4.8) k/uL Monocytes # (0-1.0) k/uL PT (9.0-12.0) sec INR (<1.2) Sodium (137-145) mmol/L Carbon Dioxide (22-30) mmol/L BUN (7-17) mg/dL Creatinine (0.52-1.04) mg/dL POC Glucose (mg/dL) 191 H (75-99) mg/dL Magnesium (1.6-2.3) mg/dL Total Bilirubin (0.2-1.3) mg/dL AST (14-36) U/L ALT (9-52) U/L Alkaline Phosphatase (38-126) U/L Total Protein (6.3-8.2) g/dL Albumin (3.5-5.0) g/dL Microbiology - Last 24 Hours (Table) 01/27/18 00:30 Blood Culture - Preliminary Blood No Growth after 96 hours Assessment and Plan Plan: Assessment Change in mental status acute metabolic encephalopathy secondary to sepsis urinary tract infection Elevated bilirubin Atrial fibrillation with RVR History of hypertension Acute renal failure possibly prerenal Hyponatremia Hyperkalemia Coumadin coagulopathy history of congestive heart failure ejection fraction not known History of COPD History of CVA with right-sided hemiparesis and expressive aphasia Gait dysfunction GERD Hyperlipidemia Gallstones with dilated gallbladder history of aortic stenosis Secondary pulmonary hypertension Lower extremity cellulitis Obesity BMI 36.8 Hypotension secondary sepsis Plan ERCP scheduled for tomorrow Continue consultation with Dr. Rivera cardiology pulmonology gastroenterology surgery and infectious disease
--- NOTE | 2018-01-31 13:53 | P.PN ---
Subjective Progress Note Date: 01/31/18 This is a 67-year-old female with history of prior right-sided CVA with expressive aphasia, COPD, chronic persistent atrial fibrillation, recurrent cellulitis of the right lower extremity, recurrent urinary tract infections, hypertension and hyperlipidemia. She was initially admitted on this occasion with hypoglycemia, Coumadin toxicity, acute kidney injury and altered mentation status. Currently receiving treatment for a UTI. Patient was seen today in follow-up on the telemetry unit, she continues to be somewhat lethargic but is more alert today. Denies any shortness of breath, chest discomfort, palpitations, dizziness, or lightheadedness. Labs show Sodium 133, BUN 49, Creatinine 1.23. LFTs continue to trend down. Objective - Vital Signs Vital signs: Vital Signs Temp 96.5 F L 01/31/18 08:00 Pulse 80 01/31/18 11:54 Resp 17 01/31/18 04:00 BP 94/68 01/31/18 08:00 Pulse Ox 93 L 01/31/18 08:00 Intake & Output 01/30/18 01/31/18 01/31/18 18:59 06:59 18:59 Intake Total 1490 Balance 1490 Weight 123 kg Intake: IV 100 Cefepime 2 gm In Sodium 100 Chloride 0.9% 50 ml @ 100 mls/hr IVPB Q12HR [facility] Rx #:[id number] Intake, IV Titration 1050 Amount DAPTOmycin 500 mg In 50 Sodium Chloride 0.9% 50 ml @ 100 mls/hr IVPB Q24H [facility] Rx#:[id number] Sodium Chloride 0.9% 1, 1000 000 ml @ 50 mls/hr IV . Q20H [facility] Rx#:[id number] Oral 340 Other: Voiding Method Diaper Diaper Diaper # Voids 1 2 - Exam Physical Exam: Revealed a 67-year-old female, in no distress, aphasic.. Head: Atraumatic, normocephalic, moist mucous membranes noted. HEENT: Neck is supple. No neck masses. No thyromegaly. No JVD. PERRLA, EOMI, no icterus. Chest: Diminished breath sounds at the bases, no crackles, no wheezes. Cardiac Exam: Irregular irregular rhythm. Normal S1 and S2, no S3 gallop, no murmur. Abdomen: Soft, nontender, no megaly, no rebound, no guarding, normal bowel sounds. Extremities: Chronic edema and discoloration of lower extremities noted bilaterally, related to chronic and recurrent cellulitis. No open wounds noted. Neurological Exam: Expressive aphasia noted, right-sided hemiplegia is noted, Lymphatics: No lymphadenopathy. Skin: Erythematous changes noted in both lower extremities as noted above. - Labs CBC & Chem 7: 01/31/18 05:46 01/31/18 05:46 Labs: Abnormal Lab Results - Last 24 Hours (Table) 01/30/18 01/30/18 01/31/18 Range/Units 17:00 20:50 05:46 WBC 12.5 H (3.8-10.6) k/uL RDW 18.0 H (11.5-15.5) % Plt Count 104 L (150-450) k/uL Neutrophils # 10.2 H (1.3-7.7) k/uL Lymphocytes # 0.9 L (1.0-4.8) k/uL Monocytes # 1.1 H (0-1.0) k/uL PT (9.0-12.0) sec INR (<1.2) Sodium (137-145) mmol/L Carbon Dioxide (22-30) mmol/L BUN (7-17) mg/dL Creatinine (0.52-1.04) mg/dL POC Glucose (mg/dL) 163 H 245 H (75-99) mg/dL Magnesium (1.6-2.3) mg/dL Total Bilirubin (0.2-1.3) mg/dL AST (14-36) U/L ALT (9-52) U/L Alkaline Phosphatase (38-126) U/L Total Protein (6.3-8.2) g/dL Albumin (3.5-5.0) g/dL 01/31/18 01/31/18 01/31/18 Range/Units 05:46 05:46 06:00 WBC (3.8-10.6) k/uL RDW (11.5-15.5) % Plt Count (150-450) k/uL Neutrophils # (1.3-7.7) k/uL Lymphocytes # (1.0-4.8) k/uL Monocytes # (0-1.0) k/uL PT 14.2 H (9.0-12.0) sec INR 1.5 H (<1.2) Sodium 133 L (137-145) mmol/L Carbon Dioxide 20 L (22-30) mmol/L BUN 49 H (7-17) mg/dL Creatinine 1.23 H (0.52-1.04) mg/dL POC Glucose (mg/dL) 102 H (75-99) mg/dL Magnesium 2.4 H (1.6-2.3) mg/dL Total Bilirubin 4.7 H (0.2-1.3) mg/dL AST 58 H (14-36) U/L ALT 81 H (9-52) U/L Alkaline Phosphatase 179 H (38-126) U/L Total Protein 5.7 L (6.3-8.2) g/dL Albumin 2.9 L (3.5-5.0) g/dL 01/31/18 Range/Units 11:58 WBC (3.8-10.6) k/uL RDW (11.5-15.5) % Plt Count (150-450) k/uL Neutrophils # (1.3-7.7) k/uL Lymphocytes # (1.0-4.8) k/uL Monocytes # (0-1.0) k/uL PT (9.0-12.0) sec INR (<1.2) Sodium (137-145) mmol/L Carbon Dioxide (22-30) mmol/L BUN (7-17) mg/dL Creatinine (0.52-1.04) mg/dL POC Glucose (mg/dL) 191 H (75-99) mg/dL Magnesium (1.6-2.3) mg/dL Total Bilirubin (0.2-1.3) mg/dL AST (14-36) U/L ALT (9-52) U/L Alkaline Phosphatase (38-126) U/L Total Protein (6.3-8.2) g/dL Albumin (3.5-5.0) g/dL Microbiology - Last 24 Hours (Table) 01/27/18 00:30 Blood Culture - Preliminary Blood No Growth after 96 hours Assessment and Plan Assessment: #1 Acute sepsis and septic shock, could be secondary to urinary tract infection or could also be related to cellulitis., Blood cultures are negative so far. Antibiotics on board empirically in the form of cefepime and vancomycin. #2 acute Coumadin toxicity #3 acute hepatitis, etiology is not clear, we will continue to monitor liver enzymes. #4 acute kidney injury, improving most likely secondary to ATN secondary to sepsis and hypotension. #5 chronic atrial fibrillation with RVR. #6 History of CVA, with right-sided hemiplegia and expressive aphasia #7 Essential hypertension #8 recurrent urinary tract infection with enterococcus #9 diabetes, with episode of hypoglycemia on admission. Treated and resolved. #10 chronic obstructive pulmonary disease Plan: Patient is NPO after midnight for possible ERCP tomorrow. We will hold Coumadin today, check daily PT/INRs. Continue to follow the patient and provide further recommendations accordingly. PLANNER INTERNSHIP note has been reviewed, I agree with a documented findings and plan of care. Patient was seen and examined.
[2018-01-31 16:32] LABS: Glucose,Whole Blood 132 mg/dL (75-99)
--- NOTE | 2018-01-31 20:14 | PN ---
PROGRESS NOTE Patient is seen for followup for acute kidney injury. She is currently lying in bed. Patient is comfortable. She denies any significant complaints. Creatinine is down to 1.23. IV fluids were discontinued. Patient has maintained oral intake. On examination, blood pressure this morning was 91/57, heart rate 80 per minute. Patient is afebrile. EXAMINATION OF THE HEART: S1, S2. EXAMINATION OF LUNGS: Bilateral breath sounds are heard. ABDOMEN: Soft, non-tender. Examination of lower extremities shows chronic skin changes with cellulitis, right lower extremity, and hemiparesis. Labs show sodium 133, potassium 4.9, chloride 101, BUN 49, serum creatinine 1.23, hemoglobin 14.0 g/dL. ASSESSMENT: 1. Acute kidney injury secondary to sepsis, currently improved. Bermudez catheter has been discontinued. No nephrotoxic medications on board. IV fluids were discontinued yesterday. Continue to encourage increased oral intake. 2. Urine tract infection on last admission with enterococcus, currently maintained on daptomycin. Patient had been on vancomycin, which is now discontinued. 3. Right lower extremity cellulitis. 4. History of cerebrovascular accident with right hemiparesis. 5. Atrial fibrillation, currently with controlled ventricular response. 6. Hyperbilirubinemia and elevated liver enzymes. Patient could not have the MRCP done secondary to body habitus. Liver enzymes have decreased and the bilirubin is also slowly decreasing. Patient is being followed by GI. PLAN: Continue off of IV fluids. Encourage increased oral intake. Continue daptomycin. Repeat labs. MMODL / IJN: [id number] /
[2018-01-31 20:45] LABS: Glucose,Whole Blood 121 mg/dL (75-99)
[2018-01-31] MEDS: DAPTOmycin 500 MG in SODIUM CHLORIDE 0.9% 50 ML IVPB SCH (21:39)
[2018-02-01 06:07] LABS: Glucose,Whole Blood 132 mg/dL (75-99)
[2018-02-01] MEDS: LEVOTHYROXINE 25 MCG TAB PO SCH (06:51)
[2018-02-01] MEDS: INSULIN ASPART 100 UNIT/ML 1 ML 10 ML VIAL SQ SCH ×4 (06:51→22:10)
[2018-02-01 07:18] LABS: Calcium 9.1 mg/dL (8.4-10.2); Potassium 4.6 mmol/L (3.5-5.1); Total Bilirubin 4.8 mg/dL (0.2-1.3); Total Protein 5.9 g/dL (6.3-8.2)
[2018-02-01] MEDS: IPRATROPIUM-ALBUTEROL 3 ML NEB INHALATION SCH ×4 (09:04→19:39)
[2018-02-01] MEDS: PANTOPRAZOLE 40 MG/10 ML VIAL IVP SCH ×2 (09:24→22:21)
[2018-02-01] MEDS: CEFEPIME 2 GM in SODIUM CHLORIDE 0.9% 50 ML IVPB SCH (09:24)
[2018-02-01] MEDS: METOPROLOL TARTRATE 50 MG TAB PO SCH (09:24)
[2018-02-01] MEDS: MULTIVITAMINS, THERA 1 EACH TAB PO SCH (09:24)
[2018-02-01] MEDS: THIAMINE 100 MG TAB PO SCH (09:24)
[2018-02-01] MEDS: FOLIC ACID 1 MG TAB PO SCH (09:25)
[2018-02-01] MEDS: DILTIAZEM ORAL 30 MG TAB PO SCH ×3 (09:28→22:21)
[2018-02-01 12:25] LABS: Glucose,Whole Blood 107 mg/dL (75-99)
[2018-02-01] MEDS ORDERED: INDOMETHACIN 50MG SUPPOSITORY RECTAL ONE ×2 (14:00→15:00)
--- NOTE | 2018-02-01 16:13 | P.PN ---
Subjective Progress Note Date: 02/01/18 This is a 67-year-old female with history of prior right-sided CVA with expressive aphasia, COPD, chronic persistent atrial fibrillation, recurrent cellulitis of the right lower extremity, recurrent urinary tract infections, hypertension and hyperlipidemia. She was initially admitted on this occasion with hypoglycemia, Coumadin toxicity, acute kidney injury and altered mentation status. Currently receiving treatment for a UTI. Patient was seen today in follow-up on the telemetry unit, she is more alert today. Denies any shortness of breath, chest discomfort, palpitations, dizziness, or lightheadedness. Labs show Sodium 134, BUN 48, Creatinine 1.16. LFTs are stable. She is awaiting ERCP. Objective - Vital Signs Vital signs: Vital Signs Temp 97.8 F 02/01/18 08:55 Pulse 98 02/01/18 13:13 Resp 16 02/01/18 13:03 BP 107/70 02/01/18 12:00 Pulse Ox 95 02/01/18 12:00 Intake & Output 01/31/18 02/01/18 02/01/18 18:59 06:59 18:59 Intake Total 280 390 Balance 280 390 Weight 165 kg 165 kg Intake: IV 100 100 Cefepime 2 gm In Sodium 100 50 Chloride 0.9% 50 ml @ 100 mls/hr IVPB Q12HR [facility] Rx #:[id number] Invasive Line 3 50 Intake, IV Titration 50 Amount DAPTOmycin 500 mg In 50 Sodium Chloride 0.9% 50 ml @ 100 mls/hr IVPB Q24H [facility] Rx#:[id number] Oral 180 240 Other: Voiding Method Diaper Diaper Diaper # Voids 2 1 # Bowel Movements 0 - Exam Physical Exam: Revealed a 67-year-old female, in no distress, aphasic.. Head: Atraumatic, normocephalic, moist mucous membranes noted. HEENT: Neck is supple. No neck masses. No thyromegaly. No JVD. PERRLA, EOMI, no icterus. Chest: Diminished breath sounds at the bases, no crackles, no wheezes. Cardiac Exam: Irregular irregular rhythm. Normal S1 and S2, no S3 gallop, no murmur. Abdomen: Soft, nontender, no megaly, no rebound, no guarding, normal bowel sounds. Extremities: Chronic edema and discoloration of lower extremities noted bilaterally, related to chronic and recurrent cellulitis. No open wounds noted. Neurological Exam: Expressive aphasia noted, right-sided hemiplegia is noted, Lymphatics: No lymphadenopathy. Skin: Erythematous changes noted in both lower extremities as noted above. - Labs CBC & Chem 7: 01/31/18 05:46 02/01/18 06:17 Labs: Abnormal Lab Results - Last 24 Hours (Table) 01/31/18 01/31/18 02/01/18 Range/Units 16:28 20:43 06:05 Sodium (137-145) mmol/L BUN (7-17) mg/dL Creatinine (0.52-1.04) mg/dL Glucose (74-99) mg/dL POC Glucose (mg/dL) 132 H 121 H 132 H (75-99) mg/dL Total Bilirubin (0.2-1.3) mg/dL AST (14-36) U/L ALT (9-52) U/L Alkaline Phosphatase (38-126) U/L Total Protein (6.3-8.2) g/dL Albumin (3.5-5.0) g/dL 02/01/18 02/01/18 Range/Units 06:17 11:59 Sodium 134 L (137-145) mmol/L BUN 48 H (7-17) mg/dL Creatinine 1.16 H (0.52-1.04) mg/dL Glucose 132 H (74-99) mg/dL POC Glucose (mg/dL) 107 H (75-99) mg/dL Total Bilirubin 4.8 H (0.2-1.3) mg/dL AST 43 H (14-36) U/L ALT 72 H (9-52) U/L Alkaline Phosphatase 196 H (38-126) U/L Total Protein 5.9 L (6.3-8.2) g/dL Albumin 3.0 L (3.5-5.0) g/dL Microbiology - Last 24 Hours (Table) 01/27/18 00:30 Blood Culture - Preliminary Blood No Growth after 120 hours Assessment and Plan Assessment: #1 Acute sepsis and septic shock, could be secondary to urinary tract infection or could also be related to cellulitis., Blood cultures are negative so far. Antibiotics on board empirically in the form of cefepime and vancomycin. #2 acute Coumadin toxicity #3 acute hepatitis, etiology is not clear, we will continue to monitor liver enzymes. #4 acute kidney injury, improving most likely secondary to ATN secondary to sepsis and hypotension. #5 chronic atrial fibrillation with RVR. #6 History of CVA, with right-sided hemiplegia and expressive aphasia #7 Essential hypertension #8 recurrent urinary tract infection with enterococcus #9 diabetes, with episode of hypoglycemia on admission. Treated and resolved. #10 chronic obstructive pulmonary disease Plan: We will hold Coumadin in anticipation of ERCP, check daily PT/INRs. Resume coumadin once invasive work-up is completed. Continue to follow the patient and provide further recommendations accordingly. SOFTWARE PRODUCT MANAGER note has been reviewed, I agree with a documented findings and plan of care. Patient was seen and examined.
--- NOTE | 2018-02-01 16:32 | PN ---
PROGRESS NOTE I am covering for Dr. Lancaster. DATE OF SERVICE: 02/01/2018 This 67-year-old woman who was admitted with multiple medical problems was planned to have ERCP today. ECF rehab is also considered. No chest pain. No palpitations. The patient had UTI with sepsis on presentation. Past medical history reviewed. REVIEW OF SYSTEMS: CARDIOVASCULAR SYSTEM: No angina, palpitations. RESPIRATORY SYSTEM: As mentioned earlier. GI: As mentioned earlier. : No dysuria or retention. CURRENT MEDICATIONS: Reviewed. They include: 1. DuoNeb q.i.d. and p.r.n. 2. Augmentin 875 mg p.o. b.i.d. 3. Cardizem 30 mg t.i.d. 4. Folic acid. 5. Dilaudid p.r.n. 6. NovoLog. 7. Synthroid. 8. Lopressor 50 mg p.o. daily. 9. Multivitamins. 10.Narcan. 11.Protonix. 12.Vitamin B1. PHYSICAL EXAMINATION: Patient is alert, oriented x2. Pulse is 111, blood pressure 107/70, respiration 16, temperature normal, pulse ox 95% on 2 L. HEENT: Conjunctivae normal. Oral mucosa moist. NECK: No jugular venous distention. No carotid bruit. No lymph node enlargement. CARDIOVASCULAR SYSTEM: S1, S2 muffled. RESPIRATORY SYSTEM: Breath sounds diminished at the bases. Scattered rhonchi and crackles. ABDOMEN: Soft, obese, non-tender. LEGS: No edema. No swelling. NERVOUS SYSTEM: No focal deficit. LABS: Sodium 134, total bilirubin 4.8, AST is 43, ALT 72. ASSESSMENT: 1. Change in mental status with metabolic encephalopathy secondary to sepsis with urinary tract infection, present on admission. 2. Elevated bilirubin, for ERCP today. 3. Atrial fibrillation with rapid ventricular rate. 4. Gait dysfunction. 5. History of hypertension. 6. Acute renal failure, possibly prerenal. 7. Hyponatremia. 8. Hyperkalemia. 9. Coumadin colopathy. 10.History of congestive heart failure. 11.Chronic obstructive pulmonary disease. 12.Cerebrovascular incident with right-sided hemiparesis. 13.Gastroesophageal reflux disease. 14.Hyperlipidemia. 15.History of gallstones with dilated gallbladder. 16.History of aortic stenosis. 17.Secondary pulmonary hypertension. 18.Lower extremity cellulitis. 19.Hypotension secondary to sepsis. RECOMMENDATIONS AND DISCUSSION: I recommend to continue current medication, continue with monitoring, symptomatic treatment. ERCP. Continue the rest of the medications. PT/OT evaluation, possible ECF rehab. Guarded prognosis. Further recommendations to follow. JAREN / DUANEN: [id number] /
[2018-02-01] MEDS ORDERED: PROPOFOL 10 MG/ML 20 ML VIAL IV ONE (16:58)
[2018-02-01] MEDS ORDERED: ROCURONIUM BROMIDE 10 MG/ML 10 ML VIAL IV ONE (16:58)
[2018-02-01] MEDS ORDERED: PHENYLEPHRINE-0.9% NACL SYG 1 MG/10 ML SYRINGE ONE (16:58)
[2018-02-01] MEDS ORDERED: GLUCAGON 1 MG/ML VIAL ONE (16:58)
[2018-02-01] MEDS ORDERED: NEOSTIGMINE 1 MG/ML 10 ML VIAL ONE (16:58)
[2018-02-01] MEDS ORDERED: GLYCOPYRROLATE 0.2 MG/ML 2 ML VIAL ONE (16:58)
[2018-02-01] MEDS ORDERED: fentaNYL (PF) 50 MCG/ML 2 ML AMP ONE (16:58)
[2018-02-01] MEDS ORDERED: LIDOCAINE 1% INJ 10MG/ML (20 ML MDV) ONE (16:58)
[2018-02-01] MEDS ORDERED: IV FLUID CONTINUATION 1,000 ML IV ONE (17:03)
[2018-02-01] MEDS: SODIUM CHLORIDE 0.9% 500 ML 500 ML IV ONE ×2 (17:50→22:09)
[2018-02-01] MEDS ORDERED: IOPAMIDOL-300 50ML BTL MISCELLANE ONE (17:53)
--- NOTE | 2018-02-01 18:16 | P.PCN ---
Date of Procedure: 02/01/18 Procedure(s) Performed: Procedure: Endoscopic retrograde cholangiopancreatography with sphincterotomy and extraction of multiple common bile duct stones using the 8.5 mm balloon catheter. Preoperative diagnosis: Sepsis and abnormal liver tests with suspected biliary tract etiology. Postoperative diagnosis: 1. Multiple filling defects in the distal common bile duct consistent with stones. 2. Four stones were seen in the duodenum after the sphincterotomy. 3. 8.5 mm balloon catheter was used to sweep the common bile duct and was pulled out fully inflated. Preparation and sedation: Was provided by anesthesia and the procedure was performed after general anesthesia, intubation and mechanical ventilation. Brief clinical history: The patient is a 67-year-old female who was admitted with acute sepsis and septic shock initially felt to be related to urinary tract infection and gram-negative bacteremia with enterococcus infection. The patient had persistent elevation in her liver enzymes. MRCP could not be performed because of her body habitus. As her INR normalized, she is scheduled for this evaluation for suspected common bile duct stones. The details are summarized in the history and physical and dictated consultations and progress notes. Procedure: With the patient in the prone position and after informed consent, intubation mechanical ventilation, the Olympus video duodenoscope was used and was advanced in the usual fashion down the esophagus into the stomach then was passed through the pylorus into the duodenum and the papilla brought into view. Initial cannulation and injection with dye resulted in opacification of the pancreatic duct which appeared normal. Subsequently, I selectively cannulated the common bile duct and injected dye. The common bile duct was slightly dilated and there were multiple small filling defects in the distal common bile duct. I, therefore, proceeded to exchange the catheter for a sphincterotome and an adequate sphincterotomy was performed. After the sphincterotomy and while preparing to advance the balloon catheter, I noted a stone in the duodenum and later I noted 3 additional stones that exited through the sphincterotomy site. The 8.5 mm balloon catheter was still advanced over the guidewire into the proximal common bile duct, inflated and withdrawn fully inflated. The patient tolerated the procedure well and did not have any immediate complications. Plan: The patient was reassured. She will be allowed clear liquid diet. We will check for bleeding and other possible complications from ERCP and sphincterotomy. Further plans, including GB surgery will be made based on our course.
--- NOTE | 2018-02-01 18:57 | PN ---
PROGRESS NOTE Patient is seen for followup for acute kidney injury. She is currently lying in bed. Patient is comfortable. Her renal function has improved significantly, with creatinine now down to 1.16 mg/dL from 1.8. She denies any significant shortness of breath. IV fluids have been discontinued. Patient was found to have urinary tract infection. However, urine culture did not grow. She previously has had enterococcus urinary tract infection. On examination, blood pressure is 107/70, heart rate 98 per minute. Patient is afebrile. EXAMINATION OF THE HEART: S1, S2. EXAMINATION OF LUNGS: Bilateral breath sounds are heard. ABDOMEN: Soft, obese. Examination of lower extremities shows edema bilaterally, worse on the right side and worse on the right upper extremity. PIPELINE WELDER exam shows right hemiparesis. Labs show serum creatinine 1.16, sodium 134, potassium 4.6. Liver enzymes are decreasing. Total bilirubin remains at 4.8. ASSESSMENT: 1. Acute kidney injury secondary to sepsis, hypotension, hypoperfusion, acute tubular necrosis, nonoliguric, currently significantly improved. 2. Volume overload. I will start the patient on Lasix. 3. Elevated liver enzymes and hyperbilirubinemia, being followed by GI. The patient could not have MRCP done secondary to body habitus. 4. History of cerebrovascular accident with right hemiparesis. 5. Urinary tract infection with significant pyuria. However, urine culture was negative. The patient recently has had enterococcus urinary tract infection. PLAN: Start IV push Lasix. Repeat labs in a.m. Continue to encourage increased oral intake. MMODL / IJN: [id number] /
[2018-02-01 21:10] LABS: Glucose,Whole Blood 117 mg/dL (75-99)
[2018-02-01] MEDS: FUROSEMIDE 10 MG/ML 4 ML VIAL IV SCH (22:20)
[2018-02-01] MEDS: AMOXIC-POT CLAV 875-125MG 1 EACH TAB PO SCH (22:21)
--- NOTE | 2018-02-01 22:52 | P.PN ---
Subjective Progress Note Date: 02/01/18 67-year-old female known to ID service as she has been treated for right lower extremity cellulitis in the past. 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 She has currently living in an apartment on her own and son is staying with her to help her with transfers. She presented to [facility] emergency center on January 26 due to decreased mental status and her blood sugar was low at home. She is found to be afebrile but tachycardic with A. fib RVR and hypotensive. Her white count was 14.5, blood sugar 39, hemoglobin A1c 6.9. Liver function tests were elevated. Urinalysis was turbid with leukoesterase large, WBC 64 bacteria many. [facility] with hypoglycemia and liver failure and renal failure and subsequently blood pressure worsened and she ended up transferring to ICU status post IV fluid resuscitation. She had a CAT scan of the brain that showed encephalomalacia and old large left middle cerebral artery infarct with multiple lacunar infarcts unchanged. Regarding her INR of greater than 10 she was given vitamin K with improvement down to 6.4. She was initially started on IV antibiotics with Rocephin subsequently on cefepime and vancomycin. Patient has been seen by GI with plan for MRCP and MRI of the liver either today or tomorrow. Radiology is following for chronic atrial fibrillation with RVR currently on Cardizem drip. Dr. Rivera is following for acute kidney injury and ATN. Patient has previous urine culture with enterococcus and previous right leg culture for Klebsiella. On this visit , blood culture showing no growth at 24 hours. Urine culture in progress. Acute hepatitis panel is negative. 02/01/2018 patient is now with marked improvement. She's having no further fever however continues to have evidence of jaundice. She's for an ERCP today. Objective - Vital Signs Vital signs: Vital Signs Temp 97.5 F L 02/01/18 18:15 Pulse 111 H 02/01/18 18:42 Resp 18 02/01/18 18:42 BP 120/58 02/01/18 18:42 Pulse Ox 97 02/01/18 19:37 Intake & Output 02/01/18 02/01/18 02/02/18 06:59 18:59 06:59 Intake Total 390 360 Balance 390 360 Weight 165 kg 165 kg Intake: IV 100 360 Cefepime 2 gm In Sodium 50 Chloride 0.9% 50 ml @ 100 mls/hr IVPB Q12HR [facility] Rx #:[id number] Invasive Line 3 50 Intake, IV Titration 50 Amount DAPTOmycin 500 mg In 50 Sodium Chloride 0.9% 50 ml @ 100 mls/hr IVPB Q24H [facility] Rx#:[id number] Oral 240 0 Other: Voiding Method Diaper Diaper # Voids 2 0 # Bowel Movements 0 - Exam Gen: This is a morbidly obese 67-year-old female. She is sitting up in bed and appears to be comfortable. No acute distress is noted. Patient is aphasic but able to communicate with her hands. HEENT: Head is atraumatic, normocephalic. Pupils equal, round. Sclerae is mildly icteric NECK: Supple. No JVD. No lymphadenopathy. No thyromegaly. LUNGS: Clear to auscultation. No wheezes or rhonchi. No intercostal retractions. HEART: Regular rate and rhythm. No murmur. ABDOMEN: Soft. Bowel sounds are present. No masses. No tenderness. EXTREMITIES: Right upper extremity is edematous with many superficial abrasions noted. Right lower extremity has erythema and edema. Multiple superficial abrasions on her lower extremities as well from scratching. NEUROLOGICAL: Patient is awake, alert and oriented x2. - Labs CBC & Chem 7: 01/31/18 05:46 02/01/18 06:17 Labs: Abnormal Lab Results - Last 24 Hours (Table) 02/01/18 02/01/18 02/01/18 Range/Units 06:05 06:17 11:59 Sodium 134 L (137-145) mmol/L BUN 48 H (7-17) mg/dL Creatinine 1.16 H (0.52-1.04) mg/dL Glucose 132 H (74-99) mg/dL POC Glucose (mg/dL) 132 H 107 H (75-99) mg/dL Total Bilirubin 4.8 H (0.2-1.3) mg/dL AST 43 H (14-36) U/L ALT 72 H (9-52) U/L Alkaline Phosphatase 196 H (38-126) U/L Total Protein 5.9 L (6.3-8.2) g/dL Albumin 3.0 L (3.5-5.0) g/dL 02/01/18 Range/Units 21:08 Sodium (137-145) mmol/L BUN (7-17) mg/dL Creatinine (0.52-1.04) mg/dL Glucose (74-99) mg/dL POC Glucose (mg/dL) 117 H (75-99) mg/dL Total Bilirubin (0.2-1.3) mg/dL AST (14-36) U/L ALT (9-52) U/L Alkaline Phosphatase (38-126) U/L Total Protein (6.3-8.2) g/dL Albumin (3.5-5.0) g/dL Microbiology - Last 24 Hours (Table) 01/27/18 00:30 Blood Culture - Preliminary Blood No Growth after 120 hours Laboratory Results WBC 12.5 k/uL (3.8-10.6) H 01/31/18 05:46 RBC 4.63 m/uL (3.80-5.40) 01/31/18 05:46 Hgb 14.0 gm/dL (11.4-16.0) 01/31/18 05:46 Hct 45.2 % (34.0-46.0) 01/31/18 05:46 MCV 97.5 fL (80.0-100.0) 01/31/18 05:46 MCH 30.3 pg (25.0-35.0) 01/31/18 05:46 MCHC 31.1 g/dL (31.0-37.0) 01/31/18 05:46 RDW 18.0 % (11.5-15.5) H 01/31/18 05:46 Plt Count 104 k/uL (150-450) L 01/31/18 05:46 Neutrophils % 82 % 01/31/18 05:46 Lymphocytes % 7 % 01/31/18 05:46 Monocytes % 9 % 01/31/18 05:46 Eosinophils % 1 % 01/31/18 05:46 Basophils % 0 % 01/31/18 05:46 Neutrophils # 10.2 k/uL (1.3-7.7) H 01/31/18 05:46 Lymphocytes # 0.9 k/uL (1.0-4.8) L 01/31/18 05:46 Monocytes # 1.1 k/uL (0-1.0) H 01/31/18 05:46 Eosinophils # 0.1 k/uL (0-0.7) 01/31/18 05:46 Basophils # 0.0 k/uL (0-0.2) 01/31/18 05:46 Manual Slide Review Performed 01/31/18 05:46 Polychromasia Present 01/31/18 05:46 Hypochromasia Moderate 01/31/18 05:46 Anisocytosis Slight 01/31/18 05:46 Macrocytosis Slight 01/31/18 05:46 PT 14.2 sec (9.0-12.0) H 01/31/18 05:46 INR 1.5 (<1.2) H 01/31/18 05:46 APTT 31.9 sec (22.0-30.0) H 01/26/18 18:48 Sodium 134 mmol/L (137-145) L 02/01/18 06:17 Potassium 4.6 mmol/L (3.5-5.1) 02/01/18 06:17 Chloride 100 mmol/L (98-107) 02/01/18 06:17 Carbon Dioxide 23 mmol/L (22-30) 02/01/18 06:17 Anion Gap 11 mmol/L 02/01/18 06:17 BUN 48 mg/dL (7-17) H 02/01/18 06:17 Creatinine 1.16 mg/dL (0.52-1.04) H 02/01/18 06:17 Est GFR (CKD-EPI)AfAm 57 (>60 ml/min/1.73 sqM) 02/01/18 06:17 Est GFR (CKD-EPI)NonAf 49 (>60 ml/min/1.73 sqM) 02/01/18 06:17 Glucose 132 mg/dL (74-99) H 02/01/18 06:17 POC Glucose (mg/dL) 117 mg/dL (75-99) H 02/01/18 21:08 POC Glu [employer] ID Maria Teresa Lora 02/01/18 21:[address] Glu mg/dL 151 01/26/18 18:48 Hemoglobin A1c 6.9 % (4.0-6.0) H 01/26/18 18:48 Calcium 9.1 mg/dL (8.4-10.2) 02/01/18 06:17 Phosphorus 4.7 mg/dL (2.5-4.5) H 01/27/18 05:44 Magnesium 2.4 mg/dL (1.6-2.3) H 01/31/18 05:46 Iron 13 ug/dL (50-170) L 01/27/18 05:44 TIBC 297 ug/dL (228-460) 01/27/18 05:44 Iron Saturation 4.38 (12.00-45.00) L 01/27/18 05:44 Ferritin 125.6 ng/mL (10.0-291.0) 01/27/18 05:44 Total Bilirubin 4.8 mg/dL (0.2-1.3) H 02/01/18 06:17 AST 43 U/L (14-36) H 02/01/18 06:17 ALT 72 U/L (9-52) H 02/01/18 06:17 Alkaline Phosphatase 196 U/L (38-126) H 02/01/18 06:17 Ammonia <9 umol/L (<30) 01/27/18 05:44 Total Creatine Kinase 165 U/L (30-135) H 01/27/18 05:44 CK-MB (CK-2) 14.6 ng/mL (0.0-2.4) H 01/27/18 05:44 CK-MB (CK-2) Rel Index 8.8 01/27/18 05:44 Troponin I 0.102 ng/mL (0.000-0.034) H* 01/27/18 05:44 Total Protein 5.9 g/dL (6.3-8.2) L 02/01/18 06:17 Albumin 3.0 g/dL (3.5-5.0) L 02/01/18 06:17 Triglycerides 85 mg/dL (<150) 01/27/18 05:44 Cholesterol 87 mg/dL (<200) 01/27/18 05:44 LDL Cholesterol, Calc 55 mg/dL (0-99) 01/27/18 05:44 HDL Cholesterol 15 mg/dL (40-60) L 01/27/18 05:44 Urine Color Dark Brown 01/26/18 23:54 Urine Appearance Turbid (Clear) H 01/26/18 23:54 Urine pH 5.0 (5.0-8.0) 01/26/18 23:54 Ur Specific [place] 1.015 (1.001-1.035) 01/26/18 23:54 Urine Protein 1+ (Negative) H 01/26/18 23:54 Urine Glucose (UA) Trace (Negative) H 01/26/18 23:54 Urine Ketones Negative (Negative) 01/26/18 23:54 Urine Blood Moderate (Negative) H 01/26/18 23:54 Urine Nitrite Negative (Negative) 01/26/18 23:54 Urine Bilirubin 1+ (Negative) H 01/26/18 23:54 Urine Urobilinogen 2.0 mg/dL (<2.0) 01/26/18 23:54 Ur Leukocyte Esterase Large (Negative) H 01/26/18 23:54 Urine RBC 20 /hpf (0-5) H 01/26/18 23:54 Urine WBC 64 /hpf (0-5) H 01/26/18 23:54 Ur Squamous Epith Cells 77 /hpf (0-4) H 01/26/18 23:54 Amorphous Sediment Few /hpf (None) H 01/26/18 23:54 Urine Bacteria Many /hpf (None) H 01/26/18 23:54 Hyaline Casts 12 /lpf (0-2) H 01/26/18 23:54 Urine Mucus Rare /hpf (None) H 01/26/18 23:54 Urine Opiates Screen Not Detected (NotDetected) 01/26/18 23:54 Ur Oxycodone Screen Not Detected (NotDetected) 01/26/18 23:54 Urine Methadone Screen Not Detected (NotDetected) 01/26/18 23:54 Ur Propoxyphene Screen Not Detected (NotDetected) 01/26/18 23:54 Acetaminophen <10.0 ug/mL 01/27/18 13:37 Ur Barbiturates Screen Not Detected (NotDetected) 01/26/18 23:54 U Tricyclic Antidepress Not Detected (NotDetected) 01/26/18 23:54 Ur Phencyclidine Scrn Not Detected (NotDetected) 01/26/18 23:54 Ur Amphetamines Screen Not Detected (NotDetected) 01/26/18 23:54 U Methamphetamines Scrn Not Detected (NotDetected) 01/26/18 23:54 U Benzodiazepines Scrn Not Detected (NotDetected) 01/26/18 23:54 Urine Cocaine Screen Not Detected (NotDetected) 01/26/18 23:54 U Marijuana (THC) Screen Not Detected (NotDetected) 01/26/18 23:54 ROLF Screen NEGATIVE (NEGATIVE) 01/27/18 05:44 Anti-Smooth Muscle Ab 6 UNITS (<20) 01/27/18 05:44 Hepatitis A IgM Ab Non-Reactive (Non-Reactive) 01/27/18 05:44 Hep Bs Antigen Non-Reactive (Non-Reactive) 01/27/18 05:44 Hep B Core IgM Ab Non-Reactive (Non-Reactive) 01/27/18 05:44 Hep C IgG Ab Non-Reactive (Non-Reactive) 01/27/18 05:44 Microbiology 01/27/18 00:30 Blood Blood Culture - Preliminary No Growth after 120 hours 01/26/18 23:54 Urine,Voided Urine Culture - Final Assessment and Plan (1) Acute exacerbation of chronic obstructive airways disease Narrative/Plan: 67-year-old woman presents to hospital with multiple medical troubles including concerns to her [place] status. She was found evidence of a markedly elevated total bilirubin and is undergone an ERCP today. At that time there was evidence of filling defects in the common bile duct and constantly sphincterectomy was performed. Multiple small stones then passed through the common bile duct. Patient tolerated the procedure well and will be transitioning to extended care in the next short period of time. Given her marked improvement in her antibiotic therapy as transitioned to oral Augmentin. Plan 7 days and follow-up with the shotblaster in the outpatient setting. Current Visit: No Status: Acute Code(s): J44.1 - CHRONIC OBSTRUCTIVE PULMONARY DISEASE W (ACUTE) EXACERBATION SNOMED Code(s): 747410170
[2018-02-02 06:10] LABS: Glucose,Whole Blood 98 mg/dL (75-99)
[2018-02-02] MEDS: INSULIN ASPART 100 UNIT/ML 1 ML 10 ML VIAL SQ SCH ×4 (06:29→22:01)
[2018-02-02] MEDS: LEVOTHYROXINE 25 MCG TAB PO SCH (06:42)
[2018-02-02 07:01] LABS: Anisocytosis Slight; Basophils % (A) 0 %; Eosinophils # (A) 0.1 k/uL (0-0.7); Eosinophils % (A) 1 %; HGB 14.1 gm/dL (11.4-16.0); Hypochromasia Marked; Lymphocytes # (A) 0.9 k/uL (1.0-4.8); Lymphocytes % (A) 7 %; MCH 30.3 pg (25.0-35.0); MCHC 30.7 g/dL (31.0-37.0); MCV 98.7 fL (80.0-100.0); Macrocytosis Slight; Mean Platelet Volume 8.2; Monocytes # (A) 0.8 k/uL (0-1.0); Monocytes % (A) 6 %; Neutrophils # (A) 11.5 k/uL (1.3-7.7); Neutrophils % (A) 85 %; RBC 4.66 m/uL (3.80-5.40); RDW 18.1 % (11.5-15.5); WBC 13.6 k/uL (3.8-10.6)
[2018-02-02 07:05] LABS: INR 1.4 (<1.2); Prothrombin Time 13.1 sec (9.0-12.0)
[2018-02-02 07:08] LABS: Albumin 2.9 g/dL (3.5-5.0); Calcium 9.2 mg/dL (8.4-10.2); Total Bilirubin 4.9 mg/dL (0.2-1.3); Total Protein 5.8 g/dL (6.3-8.2)
[2018-02-02 07:23] LABS: Platelet Count 97 k/uL (150-450)
[2018-02-02 08:05] LABS: Potassium 5.2 mmol/L (3.5-5.1)
[2018-02-02] MEDS: IPRATROPIUM-ALBUTEROL 3 ML NEB INHALATION SCH ×4 (08:31→19:28)
[2018-02-02] MEDS: METOPROLOL TARTRATE 50 MG TAB PO SCH (09:52)
[2018-02-02] MEDS: PANTOPRAZOLE 40 MG/10 ML VIAL IVP SCH ×2 (09:52→21:59)
[2018-02-02] MEDS: AMOXIC-POT CLAV 875-125MG 1 EACH TAB PO SCH ×2 (09:52→21:59)
[2018-02-02] MEDS: FUROSEMIDE 10 MG/ML 4 ML VIAL IV SCH (09:52)
[2018-02-02] MEDS: DILTIAZEM ORAL 30 MG TAB PO SCH (09:52)
[2018-02-02] MEDS ORDERED: DILTIAZEM ORAL 30 MG TAB PO STA (10:57)
--- NOTE | 2018-02-02 11:05 | P.PN ---
Subjective This is a pleasant 67 years old female who presents with signs and symptoms of sepsis with elevated liver enzymes, found to have biliary stones. She has been treated with Augmentin, Coumadin which was hold. Pain medication and Protonix. Patient at baseline answers yes/no, however she follows commands. When asking this morning she denies to me abdominal pain. She said she didn't have bowel movement and thus not bothering her. She denies nausea and vomiting. Also she denies to me urinary signs and symptoms. She has cellulitis of the right leg which is wrapped and improving. Patient continue on oxygen therapy 4 L/m via [place]. Patient is mildly dyspneic at WBC at 13.6 K reactive however her tachycardia is improving INR is 1.4. Patient's swelling in the abdominal wall and 3+ bilateral leg edema. Patient's currently on Lasix. However her creatinine is trending up however nephrology team are following the patient Objective - Vital Signs Vital signs: Vital Signs Temp 97 F L 02/02/18 08:00 Pulse 98 02/02/18 08:40 Resp 18 02/02/18 08:00 BP 171/95 02/02/18 08:00 Pulse Ox 94 L 02/02/18 08:00 Intake & Output 02/01/18 02/02/18 02/02/18 18:59 06:59 18:59 Intake Total 360 10 Balance 360 10 Weight 165 kg 119 kg 118.5 kg Intake: IV 360 10 .9 10 Oral 0 Other: Voiding Method Diaper Diaper Diaper # Voids 0 1 # Bowel Movements 0 - Exam -GENERAL: The patient is alert and oriented , she answers yes and no follow commands. not in any acute distress. Well developed, well nourished. HEENT: Pupils are round and equally reacting to light. EOMI. No scleral icterus. No conjunctival pallor. Normocephalic, atraumatic. No pharyngeal erythema. No thyromegaly. CARDIOVASCULAR: S1 and S2 present. No murmurs, rubs, or gallops. PULMONARY: Chest is clear to auscultation, no wheezing or crackles. -ABDOMEN: Soft, nontender, nondistended, normoactive bowel sounds. No palpable organomegaly. Abdominal wall edema MUSCULOSKELETAL: No joint swelling or deformity. -EXTREMITIES: No cyanosis, clubbing, . 3+ pedal edema. NEUROLOGICAL: Gross neurological examination did not reveal any focal deficits. SKIN: No rashes. - Labs CBC & Chem 7: 02/02/18 06:09 02/02/18 06:09 Labs: Abnormal Lab Results - Last 24 Hours (Table) 02/01/18 02/01/18 02/02/18 Range/Units 11:59 21:08 06:09 WBC 13.6 H (3.8-10.6) k/uL MCHC 30.7 L (31.0-37.0) g/dL RDW 18.1 H (11.5-15.5) % Plt Count 97 L (150-450) k/uL Neutrophils # 11.5 H (1.3-7.7) k/uL Lymphocytes # 0.9 L (1.0-4.8) k/uL PT (9.0-12.0) sec INR (<1.2) Sodium (137-145) mmol/L Potassium (3.5-5.1) mmol/L Carbon Dioxide (22-30) mmol/L BUN (7-17) mg/dL Creatinine (0.52-1.04) mg/dL POC Glucose (mg/dL) 107 H 117 H (75-99) mg/dL Total Bilirubin (0.2-1.3) mg/dL AST (14-36) U/L ALT (9-52) U/L Alkaline Phosphatase (38-126) U/L Total Protein (6.3-8.2) g/dL Albumin (3.5-5.0) g/dL 02/02/18 02/02/18 Range/Units 06:09 06:29 WBC (3.8-10.6) k/uL MCHC (31.0-37.0) g/dL RDW (11.5-15.5) % Plt Count (150-450) k/uL Neutrophils # (1.3-7.7) k/uL Lymphocytes # (1.0-4.8) k/uL PT 13.1 H (9.0-12.0) sec INR 1.4 H (<1.2) Sodium 131 L (137-145) mmol/L Potassium 5.2 H (3.5-5.1) mmol/L Carbon Dioxide 20 L (22-30) mmol/L BUN 56 H (7-17) mg/dL Creatinine 1.49 H (0.52-1.04) mg/dL POC Glucose (mg/dL) (75-99) mg/dL Total Bilirubin 4.9 H (0.2-1.3) mg/dL AST 45 H (14-36) U/L ALT 63 H (9-52) U/L Alkaline Phosphatase 166 H (38-126) U/L Total Protein 5.8 L (6.3-8.2) g/dL Albumin 2.9 L (3.5-5.0) g/dL Microbiology - Last 24 Hours (Table) 01/27/18 00:30 Blood Culture - Final Blood No Growth after 144 hours Assessment and Plan Assessment: Sepsis secondary to UTI and cellulitis, present on admission elevated liver enzymes with biliary stones, status post sphincterectomy on 02/01 Gallstones Atrial fibrillation with RVR, on Coumadin Essential hypertension Acute kidney injury History of CVA with right hemiparesis and aphasia History of congestive heart failure Hyperlipidemia Plan: Female who presents with sepsis secondary GI and cellulitis with passing biliary stones. Labs and medication were reviewed. Continue with the same treatment. Continue symptomatic treatment. Resume home medication. Monitor lytes and vitals. IV Lasix for patient has fluid overload. Follow-up GI and nephrology teams recommendation. ID team are following the patient as well. Continue with antibiotics as per ID recommendation. Continue with Coumadin and follow up INR closely. DVT and GI prophylaxis. Further recommendation is based on the clinical course of the patient's. DVT prophylaxis: Patient is on Coumadin GI prophylaxis: Protonix Patient might benefit from ALBA Prognosis is guarded
[2018-02-02 11:51] LABS: Glucose,Whole Blood 107 mg/dL (75-99)
[2018-02-02] MEDS: THIAMINE 100 MG TAB PO SCH (12:31)
[2018-02-02] MEDS: MULTIVITAMINS, THERA 1 EACH TAB PO SCH (12:31)
[2018-02-02] MEDS: FOLIC ACID 1 MG TAB PO SCH (12:31)
--- NOTE | 2018-02-02 13:02 | P.PN ---
Subjective Progress Note Date: 02/02/18 Principal diagnosis: This is a 67-year-old female followed up for acute kidney injury, she came in because of urine tract infection with a metabolic encephalopathy. Also has gallstones atrial fibrillation. Her creatinine improved to 1 and then went up to 1.4 possibly from the Indocin she received yesterday. She has a right-sided CVA and has a phasic and difficult to communicate with. She is known with aortic stenosis, left lower extremity cellulitis, and abnormal liver function tests scheduled for ERCP.. She presented to [facility] emergency center on January 26 due to decreased mental status and her blood sugar was low at home. She is found to be afebrile but tachycardic with A. fib RVR and hypotensive. Her white count was 14.5, blood sugar 39, hemoglobin A1c 6.9. Liver function tests were elevated. Urinalysis was turbid with leukoesterase large, WBC 64 bacteria many. Patient was admitted to the [facility] floor with hypoglycemia and liver failure and renal failure and subsequently blood pressure worsened and she ended up transferring to ICU status post IV fluid resuscitation. She had a CAT scan of the brain that showed encephalomalacia and old large left middle cerebral artery infarct with multiple lacunar infarcts unchanged Objective - Vital Signs Vital signs: Vital Signs Temp 97 F L 02/02/18 08:00 Pulse 94 02/02/18 12:13 Resp 18 02/02/18 08:00 BP 171/95 02/02/18 08:00 Pulse Ox 94 L 02/02/18 08:00 Intake & Output 02/01/18 02/02/18 02/02/18 18:59 06:59 18:59 Intake Total 360 10 Balance 360 10 Weight 165 kg 119 kg 118.5 kg Intake: IV 360 10 .9 10 Oral 0 Other: Voiding Method Diaper Diaper Diaper # Voids 0 1 # Bowel Movements 0 On examination is awake alert, follows commands has expressive aphasia. There may be an element of receptive aphasia as well A chin exam no JVP neck is supple no facial asymmetry Lungs are clear to auscultation but less than optimal air entry. Heart sounds are unremarkable for any murmur rub gallop Abdomen soft nontender slightly protuberant Extremity exam was minimal edema. She has bandages on her leg. Neurologically she has right CVA with dysphagia. - Labs CBC & Chem 7: 02/02/18 06:09 02/02/18 06:09 Labs: Abnormal Lab Results - Last 24 Hours (Table) 02/01/18 02/02/18 02/02/18 Range/Units 21:08 06:09 06:09 WBC 13.6 H (3.8-10.6) k/uL MCHC 30.7 L (31.0-37.0) g/dL RDW 18.1 H (11.5-15.5) % Plt Count 97 L (150-450) k/uL Neutrophils # 11.5 H (1.3-7.7) k/uL Lymphocytes # 0.9 L (1.0-4.8) k/uL PT (9.0-12.0) sec INR (<1.2) Sodium 131 L (137-145) mmol/L Potassium 5.2 H (3.5-5.1) mmol/L Carbon Dioxide 20 L (22-30) mmol/L BUN 56 H (7-17) mg/dL Creatinine 1.49 H (0.52-1.04) mg/dL POC Glucose (mg/dL) 117 H (75-99) mg/dL Total Bilirubin 4.9 H (0.2-1.3) mg/dL AST 45 H (14-36) U/L ALT 63 H (9-52) U/L Alkaline Phosphatase 166 H (38-126) U/L Total Protein 5.8 L (6.3-8.2) g/dL Albumin 2.9 L (3.5-5.0) g/dL 02/02/18 02/02/18 Range/Units 06:29 11:43 WBC (3.8-10.6) k/uL MCHC (31.0-37.0) g/dL RDW (11.5-15.5) % Plt Count (150-450) k/uL Neutrophils # (1.3-7.7) k/uL Lymphocytes # (1.0-4.8) k/uL PT 13.1 H (9.0-12.0) sec INR 1.4 H (<1.2) Sodium (137-145) mmol/L Potassium (3.5-5.1) mmol/L Carbon Dioxide (22-30) mmol/L BUN (7-17) mg/dL Creatinine (0.52-1.04) mg/dL POC Glucose (mg/dL) 107 H (75-99) mg/dL Total Bilirubin (0.2-1.3) mg/dL AST (14-36) U/L ALT (9-52) U/L Alkaline Phosphatase (38-126) U/L Total Protein (6.3-8.2) g/dL Albumin (3.5-5.0) g/dL Microbiology - Last 24 Hours (Table) 01/27/18 00:30 Blood Culture - Final Blood No Growth after 144 hours Assessment and Plan Assessment: Impression 1. Acute kidney injury. Initially it was secondary to UTI and sepsis, urine cultures here are negative but supposedly she has had recently positive urine cultures. creatinine improved to 1.1 as of yesterday and went up to 1.4, likely from Indocin that she was given. 2. Abnormal liver function tests with gallstones in the bilateral, status post ERCP and sphincterotomy yesterday 02/01/2018 3. Remote right CVA with dysphasia 4. Mild hyponatremia secondary to acute kidney injury. 5. Mild hypo-kalemia secondary to Indocin, concurrent glucose is 99. Plan-. 1. Avoid any nephrotoxic medication including nonsteroidals. 2. Will watch her's labs. Expect sodium to improve. 3. Check postvoid residual
--- NOTE | 2018-02-02 13:10 | P.PN ---
Subjective Progress Note Date: 02/02/18 This is a 67-year-old female with history of prior right-sided CVA with expressive aphasia, COPD, chronic persistent atrial fibrillation, recurrent cellulitis of the right lower extremity, recurrent urinary tract infections, hypertension and hyperlipidemia. She was initially admitted on this occasion with hypoglycemia, Coumadin toxicity, acute kidney injury and altered mentation status. Currently receiving treatment for a UTI. Patient was seen today in follow-up on the telemetry unit, she is more alert today. Denies any shortness of breath, chest discomfort, palpitations, dizziness, or lightheadedness. Labs show Sodium 131, BUN 56, Creatinine 1.49. Being followed by nephrology. LFTs are stable. She underwent ERCP yesterday and was found to have stones in the distal common bile duct. Heart rate is poorly controlled today. Blood pressure is marginal at times. INR is 1.4 today. Objective - Vital Signs Vital signs: Vital Signs Temp 97 F L 02/02/18 08:00 Pulse 94 02/02/18 12:13 Resp 18 02/02/18 08:00 BP 171/95 02/02/18 08:00 Pulse Ox 94 L 02/02/18 08:00 Intake & Output 02/01/18 02/02/18 02/02/18 18:59 06:59 18:59 Intake Total 360 10 Balance 360 10 Weight 165 kg 119 kg 118.5 kg Intake: IV 360 10 .9 10 Oral 0 Other: Voiding Method Diaper Diaper Diaper # Voids 0 1 # Bowel Movements 0 - Exam Physical Exam: Revealed a 67-year-old female, in no distress, aphasic.. Head: Atraumatic, normocephalic, moist mucous membranes noted. HEENT: Neck is supple. No neck masses. No thyromegaly. No JVD. PERRLA, EOMI, no icterus. Chest: Diminished breath sounds at the bases, no crackles, no wheezes. Cardiac Exam: Irregular irregular rhythm. Normal S1 and S2, no S3 gallop, no murmur. Abdomen: Soft, nontender, no megaly, no rebound, no guarding, normal bowel sounds. Extremities: Chronic edema and discoloration of lower extremities noted bilaterally, related to chronic and recurrent cellulitis. No open wounds noted. Neurological Exam: Expressive aphasia noted, right-sided hemiplegia is noted, Lymphatics: No lymphadenopathy. Skin: Erythematous changes noted in both lower extremities as noted above. - Labs CBC & Chem 7: 02/02/18 06:09 02/02/18 06:09 Labs: Abnormal Lab Results - Last 24 Hours (Table) 02/01/18 02/02/18 02/02/18 Range/Units 21:08 06:09 06:09 WBC 13.6 H (3.8-10.6) k/uL MCHC 30.7 L (31.0-37.0) g/dL RDW 18.1 H (11.5-15.5) % Plt Count 97 L (150-450) k/uL Neutrophils # 11.5 H (1.3-7.7) k/uL Lymphocytes # 0.9 L (1.0-4.8) k/uL PT (9.0-12.0) sec INR (<1.2) Sodium 131 L (137-145) mmol/L Potassium 5.2 H (3.5-5.1) mmol/L Carbon Dioxide 20 L (22-30) mmol/L BUN 56 H (7-17) mg/dL Creatinine 1.49 H (0.52-1.04) mg/dL POC Glucose (mg/dL) 117 H (75-99) mg/dL Total Bilirubin 4.9 H (0.2-1.3) mg/dL AST 45 H (14-36) U/L ALT 63 H (9-52) U/L Alkaline Phosphatase 166 H (38-126) U/L Total Protein 5.8 L (6.3-8.2) g/dL Albumin 2.9 L (3.5-5.0) g/dL 02/02/18 02/02/18 Range/Units 06:29 11:43 WBC (3.8-10.6) k/uL MCHC (31.0-37.0) g/dL RDW (11.5-15.5) % Plt Count (150-450) k/uL Neutrophils # (1.3-7.7) k/uL Lymphocytes # (1.0-4.8) k/uL PT 13.1 H (9.0-12.0) sec INR 1.4 H (<1.2) Sodium (137-145) mmol/L Potassium (3.5-5.1) mmol/L Carbon Dioxide (22-30) mmol/L BUN (7-17) mg/dL Creatinine (0.52-1.04) mg/dL POC Glucose (mg/dL) 107 H (75-99) mg/dL Total Bilirubin (0.2-1.3) mg/dL AST (14-36) U/L ALT (9-52) U/L Alkaline Phosphatase (38-126) U/L Total Protein (6.3-8.2) g/dL Albumin (3.5-5.0) g/dL Microbiology - Last 24 Hours (Table) 01/27/18 00:30 Blood Culture - Final Blood No Growth after 144 hours Assessment and Plan Assessment: #1 Acute sepsis and septic shock, could be secondary to urinary tract infection or could also be related to cellulitis., Blood cultures are negative so far. Antibiotics on board empirically in the form of cefepime and vancomycin. #2 acute Coumadin toxicity #3 acute hepatitis, etiology is not clear, we will continue to monitor liver enzymes. #4 acute kidney injury, improving most likely secondary to ATN secondary to sepsis and hypotension. #5 chronic atrial fibrillation with RVR. #6 History of CVA, with right-sided hemiplegia and expressive aphasia #7 Essential hypertension #8 recurrent urinary tract infection with enterococcus #9 diabetes, with episode of hypoglycemia on admission. Treated and resolved. #10 chronic obstructive pulmonary disease Plan: From cardiology's perspective, we will resume Coumadin 2 mg by mouth daily. Continue monitor daily INRs. Crease Cardizem to 60 mg by mouth 3 times a day. Continue metoprolol 50 mg by mouth twice a day. We'll continue to follow the patient right further recommendations accordingly. [employer] note has been reviewed, I agree with a documented findings and plan of care. Patient was seen and examined.
--- NOTE | 2018-02-02 15:40 | FL ---
EXAMINATION TYPE: FL ERCP DATE OF EXAM: 02/01/2018 CLINICAL HISTORY: Biliary Stones. TECHNIQUE: Fluoroscopy. COMPARISON: None. FINDINGS: Fluoroscopic guidance was provided during ERCP procedure performed by Dr. Waddell. A total of 57 seconds of fluoroscopic time was utilized during the procedure and 1 spot intraoperative image is acquired. Single image acquired shows cannulation at the duodenal ampulla with opacification of bi liary system without obvious central filling defect. Please refer to procedure note for further detai ls as I was not present nor performed procedure. IMPRESSION: As Above.
[2018-02-02] MEDS: DILTIAZEM ORAL 60 MG TAB PO SCH ×2 (15:55→22:35)
[2018-02-02 16:17] LABS: Glucose,Whole Blood 99 mg/dL (75-99)
[2018-02-02] MEDS ORDERED: WARFARIN 2 MG TAB PO ONE (18:00)
[2018-02-02 20:43] LABS: Glucose,Whole Blood 109 mg/dL (75-99)
[2018-02-03 05:32] LABS: Glucose,Whole Blood 102 mg/dL (75-99)
[2018-02-03 05:39] LABS: Anisocytosis Slight; Basophils % (A) 0 %; Eosinophils # (A) 0.2 k/uL (0-0.7); Eosinophils % (A) 1 %; HCT 46.5 % (34.0-46.0); HGB 13.6 gm/dL (11.4-16.0); Hypochromasia Moderate; Lymphocytes # (A) 0.8 k/uL (1.0-4.8); Lymphocytes % (A) 6 %; MCH 28.8 pg (25.0-35.0); MCHC 29.3 g/dL (31.0-37.0); MCV 98.3 fL (80.0-100.0); Macrocytosis Slight; Monocytes # (A) 0.9 k/uL (0-1.0); Monocytes % (A) 7 %; Neutrophils # (A) 11.6 k/uL (1.3-7.7); Neutrophils % (A) 85 %; Platelet Count 125 k/uL (150-450); RBC 4.73 m/uL (3.80-5.40); RDW 18.2 % (11.5-15.5); WBC 13.7 k/uL (3.8-10.6)
[2018-02-03 05:41] LABS: INR 1.5 (<1.2); Prothrombin Time 13.6 sec (9.0-12.0)
[2018-02-03 05:56] LABS: Calcium 9.4 mg/dL (8.4-10.2); Potassium 5.3 mmol/L (3.5-5.1); Total Bilirubin 4.6 mg/dL (0.2-1.3); Total Protein 5.9 g/dL (6.3-8.2)
--- NOTE | 2018-02-03 06:24 | P.PN ---
Subjective Progress Note Date: 02/03/18 This is a 67-year-old female with history of prior right-sided CVA with expressive aphasia, COPD, chronic persistent atrial fibrillation, recurrent cellulitis of the right lower extremity, recurrent urinary tract infections, hypertension and hyperlipidemia. She was initially admitted on this occasion with hypoglycemia, Coumadin toxicity, acute kidney injury and altered mentation status. Currently receiving treatment for a UTI. Patient was seen today in follow-up on the telemetry unit, she is more alert today. Denies any shortness of breath, chest discomfort, palpitations, dizziness, or lightheadedness. She did undergo an ERCP yesterday with the removal of gallstone. Coumadin was restarted. Objective - Vital Signs Vital signs: Vital Signs Temp 97.1 F L 02/03/18 04:00 Pulse 96 02/03/18 04:00 Resp 18 02/03/18 04:00 BP 122/73 02/03/18 04:00 Pulse Ox 93 L 02/03/18 04:00 Intake & Output 02/02/18 02/02/18 02/03/18 06:59 18:59 06:59 Intake Total 530 Output Total 378 Balance 152 Weight 119 kg 118.5 kg 117.5 kg Intake: IV 10 .9 10 Oral 520 Output: Urine 200 Post Void Residual 178 Other: Voiding Method Diaper Diaper Diaper Incontinent # Voids 1 2 1 # Bowel Movements 0 - Constitutional General appearance: Present: no acute distress - Respiratory Respiratory: bilateral: CTA - Cardiovascular Rhythm: irregularly irregular Heart sounds: normal: S1, S2 - Labs CBC & Chem 7: 02/03/18 05:20 02/03/18 05:20 Labs: Abnormal Lab Results - Last 24 Hours (Table) 02/02/18 02/02/18 02/02/18 Range/Units 06:09 06:09 06:29 WBC 13.6 H (3.8-10.6) k/uL Hct (34.0-46.0) % MCHC 30.7 L (31.0-37.0) g/dL RDW 18.1 H (11.5-15.5) % Plt Count 97 L (150-450) k/uL Neutrophils # 11.5 H (1.3-7.7) k/uL Lymphocytes # 0.9 L (1.0-4.8) k/uL PT 13.1 H (9.0-12.0) sec INR 1.4 H (<1.2) Sodium 131 L (137-145) mmol/L Potassium 5.2 H (3.5-5.1) mmol/L Carbon Dioxide 20 L (22-30) mmol/L BUN 56 H (7-17) mg/dL Creatinine 1.49 H (0.52-1.04) mg/dL POC Glucose (mg/dL) (75-99) mg/dL Total Bilirubin 4.9 H (0.2-1.3) mg/dL AST 45 H (14-36) U/L ALT 63 H (9-52) U/L Alkaline Phosphatase 166 H (38-126) U/L Total Protein 5.8 L (6.3-8.2) g/dL Albumin 2.9 L (3.5-5.0) g/dL 02/02/18 02/02/18 02/03/18 Range/Units 11:43 20:41 05:20 WBC 13.7 H (3.8-10.6) k/uL Hct 46.5 H (34.0-46.0) % MCHC 29.3 L (31.0-37.0) g/dL RDW 18.2 H (11.5-15.5) % Plt Count 125 L (150-450) k/uL Neutrophils # 11.6 H (1.3-7.7) k/uL Lymphocytes # 0.8 L (1.0-4.8) k/uL PT (9.0-12.0) sec INR (<1.2) Sodium (137-145) mmol/L Potassium (3.5-5.1) mmol/L Carbon Dioxide (22-30) mmol/L BUN (7-17) mg/dL Creatinine (0.52-1.04) mg/dL POC Glucose (mg/dL) 107 H 109 H (75-99) mg/dL Total Bilirubin (0.2-1.3) mg/dL AST (14-36) U/L ALT (9-52) U/L Alkaline Phosphatase (38-126) U/L Total Protein (6.3-8.2) g/dL Albumin (3.5-5.0) g/dL 02/03/18 02/03/18 02/03/18 Range/Units 05:20 05:20 05:30 WBC (3.8-10.6) k/uL Hct (34.0-46.0) % MCHC (31.0-37.0) g/dL RDW (11.5-15.5) % Plt Count (150-450) k/uL Neutrophils # (1.3-7.7) k/uL Lymphocytes # (1.0-4.8) k/uL PT 13.6 H (9.0-12.0) sec INR 1.5 H (<1.2) Sodium 131 L (137-145) mmol/L Potassium 5.3 H (3.5-5.1) mmol/L Carbon Dioxide 20 L (22-30) mmol/L BUN 63 H (7-17) mg/dL Creatinine 1.78 H (0.52-1.04) mg/dL POC Glucose (mg/dL) 102 H (75-99) mg/dL Total Bilirubin 4.6 H (0.2-1.3) mg/dL AST 39 H (14-36) U/L ALT 60 H (9-52) U/L Alkaline Phosphatase 169 H (38-126) U/L Total Protein 5.9 L (6.3-8.2) g/dL Albumin 3.0 L (3.5-5.0) g/dL Microbiology - Last 24 Hours (Table) 01/27/18 00:30 Blood Culture - Final Blood No Growth after 144 hours Assessment and Plan Assessment: Assessment Chronic atrial fibrillation was relatively controlled heart rate History of CVA with expressive aphasia Multiple comorbid conditions Plan We did increase the dose of Cardizem yesterday to 60 mg by mouth 3 times a day. I will continue that. The heart rate has been in the 90s Continue oral anticoagulation with Coumadin Follow-up with the patient
[2018-02-03] MEDS: INSULIN ASPART 100 UNIT/ML 1 ML 10 ML VIAL SQ SCH ×4 (06:27→22:10)
[2018-02-03] MEDS: LEVOTHYROXINE 25 MCG TAB PO SCH (06:27)
[2018-02-03] MEDS: IPRATROPIUM-ALBUTEROL 3 ML NEB INHALATION SCH ×4 (07:35→20:35)
[2018-02-03] MEDS ORDERED: SODIUM POLYSTYRENE SULFONATE 15 GM/60 ML BOTTLE PO ONE (08:30)
--- NOTE | 2018-02-03 09:38 | P.PN ---
Subjective Progress Note Date: 02/03/18 Principal diagnosis: This is a 67-year-old female followed up for acute kidney injury, she came in because of urine tract infection with a metabolic encephalopathy. Also has gallstones, atrial fibrillation. Her creatinine improved to 1 and then went up to 1.4 possibly from the Indocin she received. She has a right-sided CVA and is dysphasic and difficult to communicate with. Today she continues to have difficulty with speech as yesterday unchanged. She is known with aortic stenosis, left lower extremity cellulitis, and abnormal liver function tests scheduled for ERCP.. She presented to [facility] emergency center on January 26 due to decreased mental status and her blood sugar was low at home. She is found to be afebrile but tachycardic with A. fib RVR and hypotensive. Her white count was 14.5, blood sugar 39, hemoglobin A1c 6.9. Liver function tests were elevated. Urinalysis was turbid with leukoesterase large, WBC 64 bacteria many. [facility]cemia and liver failure and renal failure and subsequently blood pressure worsened and she ended up transferring to ICU status post IV fluid resuscitation. She had a CAT scan of the brain that showed encephalomalacia and old large left middle cerebral artery infarct with multiple lacunar infarcts unchanged Objective - Vital Signs Vital signs: Vital Signs Temp 98.1 F 02/03/18 08:00 Pulse 106 H 02/03/18 08:00 Resp 18 02/03/18 08:00 BP 117/83 02/03/18 08:00 Pulse Ox 96 02/03/18 08:00 Intake & Output 02/02/18 02/03/18 02/03/18 18:59 06:59 18:59 Intake Total 530 10 Output Total 378 Balance 152 10 Weight 118.5 kg 117.5 kg Intake: IV 10 10 .9 10 10 Oral 520 Output: Urine 200 Post Void Residual 178 Other: Voiding Method Diaper Diaper Diaper Incontinent Incontinent # Voids 2 1 # Bowel Movements 0 0 On examination she is awake alert but has dysphagia. It seems he both expressive and receptive. She has obvious right-sided weakness. She has significant edema of all her extremities including the arms. HEENT exam no JVP neck is supple no facial asymmetry Lungs are clear to auscultation but poor air entry Heart sounds are unremarkable for any murmur rub gallop Extremity examinations has 2+ edema. Abdomen is soft nontender no masses felt. Neurologically as mentioned difficult to communicate with because of dysphagia both receptive and expressive. Right-sided CVA as before - Labs CBC & Chem 7: 02/03/18 05:20 02/03/18 05:20 Labs: Abnormal Lab Results - Last 24 Hours (Table) 02/02/18 02/02/18 02/03/18 Range/Units 11:43 20:41 05:20 WBC 13.7 H (3.8-10.6) k/uL Hct 46.5 H (34.0-46.0) % MCHC 29.3 L (31.0-37.0) g/dL RDW 18.2 H (11.5-15.5) % Plt Count 125 L (150-450) k/uL Neutrophils # 11.6 H (1.3-7.7) k/uL Lymphocytes # 0.8 L (1.0-4.8) k/uL PT (9.0-12.0) sec INR (<1.2) Sodium (137-145) mmol/L Potassium (3.5-5.1) mmol/L Carbon Dioxide (22-30) mmol/L BUN (7-17) mg/dL Creatinine (0.52-1.04) mg/dL POC Glucose (mg/dL) 107 H 109 H (75-99) mg/dL Total Bilirubin (0.2-1.3) mg/dL AST (14-36) U/L ALT (9-52) U/L Alkaline Phosphatase (38-126) U/L Total Protein (6.3-8.2) g/dL Albumin (3.5-5.0) g/dL 02/03/18 02/03/18 02/03/18 Range/Units 05:20 05:20 05:30 WBC (3.8-10.6) k/uL Hct (34.0-46.0) % MCHC (31.0-37.0) g/dL RDW (11.5-15.5) % Plt Count (150-450) k/uL Neutrophils # (1.3-7.7) k/uL Lymphocytes # (1.0-4.8) k/uL PT 13.6 H (9.0-12.0) sec INR 1.5 H (<1.2) Sodium 131 L (137-145) mmol/L Potassium 5.3 H (3.5-5.1) mmol/L Carbon Dioxide 20 L (22-30) mmol/L BUN 63 H (7-17) mg/dL Creatinine 1.78 H (0.52-1.04) mg/dL POC Glucose (mg/dL) 102 H (75-99) mg/dL Total Bilirubin 4.6 H (0.2-1.3) mg/dL AST 39 H (14-36) U/L ALT 60 H (9-52) U/L Alkaline Phosphatase 169 H (38-126) U/L Total Protein 5.9 L (6.3-8.2) g/dL Albumin 3.0 L (3.5-5.0) g/dL Assessment and Plan Assessment: Impression 1. Acute kidney injury. Initially it was secondary to UTI and sepsis, urine cultures here are negative but supposedly she has had recently positive urine cultures. creatinine improved to 1.1 as of yesterday and went up to 1.4, and then further up to 1.78 this morning. There was an order for Indocin but I'm not sure it was given 2 days ago, and her post void residual is supposedly none. The cause of this increase in creatinine is unclear. Possibilities include acute interstitial nephritis, congestive heart failure although clinically it is not evident but because of poor inspiratory efforts this needs to be ruled out.. 2. Abnormal liver function tests with gallstones in the bilateral, status post ERCP and sphincterotomy yesterday 02/01/2018 3. Remote right CVA with dysphasia 4. Mild hyponatremia secondary to acute kidney injury. 5. Mild hyper-kalemia secondary to acute kidney injury. Concurrent blood sugar is Indocin, concurrent glucose 102 is 99. Plan-. 1. Check urine analysis and urine eosinophil. Urine protein to creatinine ratio 2. Check ultrasound of the kidney to ensure there is no hydronephrosis. 3. Obtain chest x-ray to rule out CHF Avoid any nephrotoxic medication including nonsteroidals. 4. Will watch her's labs.
[2018-02-03] MEDS: PANTOPRAZOLE 40 MG TABLET PO SCH ×2 (10:24→18:14)
[2018-02-03] MEDS: DILTIAZEM ORAL 60 MG TAB PO SCH ×3 (10:24→22:11)
[2018-02-03] MEDS: METOPROLOL TARTRATE 50 MG TAB PO SCH (10:24)
[2018-02-03] MEDS: AMOXIC-POT CLAV 875-125MG 1 EACH TAB PO SCH ×2 (10:24→22:10)
--- NOTE | 2018-02-03 11:36 | P.PN ---
Subjective This is a pleasant 67 years old female who presents with signs and symptoms of sepsis with elevated liver enzymes, found to have biliary stones. She has been treated with Augmentin, Coumadin which was hold. Pain medication and Protonix. Patient at baseline answers yes/no, however she follows commands. When asking this morning she denies to me abdominal pain. She said she didn't have bowel movement and thus not bothering her. She denies nausea and vomiting. Also she denies to me urinary signs and symptoms. She has cellulitis of the right leg which is wrapped and improving. Patient continue on oxygen therapy 4 L/m via [place]. Patient is mildly dyspneic at WBC at 13.6 K reactive however her tachycardia is improving INR is 1.4. Patient's swelling in the abdominal wall and 3+ bilateral leg edema. Patient's currently on Lasix. However her creatinine is trending up however nephrology team are following the patient 02/03/2018 Patient mental status looks the same. Patient denies any pain including no abdominal pain. She didn't have bowel movement since yesterday. Her cellulitis of the right leg is improving with decreased swelling and redness, area looks nontender. Patient still have generally edematous including abdominal wall. With this. We will restriction and renal colic low potassium of cardiac diet with low sodium. Her creatinine is trending up from 1.1to1.4to1.7. Postvoid urine is negative/minimum as per staff. She still on 4 L oxygen via [place]. WBC is 13.7 K but tachycardia is around 100 slightly better. INR is 1.5, with given Coumadin 2 mg today. Liver enzymes still mildly elevated and bilirubin is 4.6 Objective - Vital Signs Vital signs: Vital Signs Temp 98.1 F 02/03/18 08:00 Pulse 106 H 02/03/18 08:00 Resp 18 02/03/18 08:00 BP 117/83 02/03/18 08:00 Pulse Ox 96 02/03/18 08:00 Intake & Output 02/02/18 02/03/18 02/03/18 18:59 06:59 18:59 Intake Total 530 10 Output Total 378 Balance 152 10 Weight 118.5 kg 117.5 kg Intake: IV 10 10 .9 10 10 Oral 520 Output: Urine 200 Post Void Residual 178 Other: Voiding Method Diaper Diaper Diaper Incontinent Incontinent # Voids 2 1 # Bowel Movements 0 0 - Exam -GENERAL: The patient is alert and oriented , she answers yes and no , follow commands. not in any acute distress. Well developed, well nourished. HEENT: Pupils are round and equally reacting to light. EOMI. No scleral icterus. No conjunctival pallor. Normocephalic, atraumatic. No pharyngeal erythema. No thyromegaly. CARDIOVASCULAR: S1 and S2 present. No murmurs, rubs, or gallops. PULMONARY: Chest is clear to auscultation, no wheezing or crackles. -ABDOMEN: Soft, nontender, nondistended, normoactive bowel sounds. No palpable organomegaly. Abdominal wall edema MUSCULOSKELETAL: No joint swelling or deformity. -EXTREMITIES: No cyanosis, clubbing, . 3+ pedal edema. Improving right leg cellulitis NEUROLOGICAL: Gross neurological examination did not reveal any focal deficits. SKIN: No rashes. - Labs CBC & Chem 7: 02/03/18 05:20 02/03/18 05:20 Labs: Abnormal Lab Results - Last 24 Hours (Table) 02/02/18 02/02/18 02/03/18 Range/Units 11:43 20:41 05:20 WBC 13.7 H (3.8-10.6) k/uL Hct 46.5 H (34.0-46.0) % MCHC 29.3 L (31.0-37.0) g/dL RDW 18.2 H (11.5-15.5) % Plt Count 125 L (150-450) k/uL Neutrophils # 11.6 H (1.3-7.7) k/uL Lymphocytes # 0.8 L (1.0-4.8) k/uL PT (9.0-12.0) sec INR (<1.2) Sodium (137-145) mmol/L Potassium (3.5-5.1) mmol/L Carbon Dioxide (22-30) mmol/L BUN (7-17) mg/dL Creatinine (0.52-1.04) mg/dL POC Glucose (mg/dL) 107 H 109 H (75-99) mg/dL Total Bilirubin (0.2-1.3) mg/dL AST (14-36) U/L ALT (9-52) U/L Alkaline Phosphatase (38-126) U/L Total Protein (6.3-8.2) g/dL Albumin (3.5-5.0) g/dL 02/03/18 02/03/18 02/03/18 Range/Units 05:20 05:20 05:30 WBC (3.8-10.6) k/uL Hct (34.0-46.0) % MCHC (31.0-37.0) g/dL RDW (11.5-15.5) % Plt Count (150-450) k/uL Neutrophils # (1.3-7.7) k/uL Lymphocytes # (1.0-4.8) k/uL PT 13.6 H (9.0-12.0) sec INR 1.5 H (<1.2) Sodium 131 L (137-145) mmol/L Potassium 5.3 H (3.5-5.1) mmol/L Carbon Dioxide 20 L (22-30) mmol/L BUN 63 H (7-17) mg/dL Creatinine 1.78 H (0.52-1.04) mg/dL POC Glucose (mg/dL) 102 H (75-99) mg/dL Total Bilirubin 4.6 H (0.2-1.3) mg/dL AST 39 H (14-36) U/L ALT 60 H (9-52) U/L Alkaline Phosphatase 169 H (38-126) U/L Total Protein 5.9 L (6.3-8.2) g/dL Albumin 3.0 L (3.5-5.0) g/dL Assessment and Plan Assessment: Sepsis secondary to UTI and cellulitis, present on admission elevated liver enzymes and bilirubin with biliary stones, status post sphincterectomy on 02/01/2018 Gallstones Acute kidney injury Atrial fibrillation with RVR, on Coumadin Essential hypertension Acute kidney injury History of CVA with right hemiparesis and aphasia History of congestive heart failure Hyperlipidemia Plan: Female who presents with sepsis secondary GI and cellulitis with passing biliary stones. Labs and medication were reviewed. Continue with the same treatment. Continue symptomatic treatment. Resume home medication. Monitor lytes and vitals. IV Lasix for patient has fluid overload. Follow-up GI and nephrology teams recommendation. ID team are following the patient as well. Continue with antibiotics as per ID recommendation. Continue with Coumadin and follow up INR closely. DVT and GI prophylaxis. Further recommendation is based on the clinical course of the patient's. DVT prophylaxis: Patient is on Coumadin GI prophylaxis: Protonix Patient might benefit from ALBA Prognosis is guarded
--- NOTE | 2018-02-03 12:07 | XR ---
EXAMINATION TYPE: XR chest 2V DATE OF EXAM: 02/03/2018 HISTORY: chf. REFERENCE: Previous study dated 01/29/2018. FINDINGS: There is multichamber cardiac enlargement. There are small, bilateral effusions. There is v ascular congestion without mario edema. IMPRESSION: 1. CARDIOMEGALY. 2. SMALL, BILATERAL EFFUSIONS. 3. VASCULAR CONGESTION.
[2018-02-03 12:35] LABS: Glucose,Whole Blood 99 mg/dL (75-99)
[2018-02-03] MEDS: THIAMINE 100 MG TAB PO SCH (13:05)
[2018-02-03] MEDS: MULTIVITAMINS, THERA 1 EACH TAB PO SCH (13:05)
[2018-02-03] MEDS: FOLIC ACID 1 MG TAB PO SCH (13:05)
--- NOTE | 2018-02-03 15:22 | US ---
EXAMINATION TYPE: US kidneys/renal and bladder DATE OF EXAM: 02/03/2018 COMPARISON: NONE CLINICAL HISTORY: BING . EXAM MEASUREMENTS: Right Kidney: 10.0 x 5.4 x 4.5 Left Kidney: 11.4 x 6.2 x 4.5 Confused, uncooperative, morbidly obese patient unable to move or cooperate with examiner in any way. Severe fluid in soft tissue as well. Technically difficult and severely limited exam. Right Kidney: Inferior pole obscured by bowel gas, very limited visualization sees no hydro or masses Left Kidney: small upper pole cyst measuring 1.5 x 1.0 x 1.0cm, echogenic foci mid measuring 0.9 x 0. 7 x 0.7cm Bladder: not seen Small amount of free fluid seen in RUQ, LUQ and pelvis. There is no evidence for hydronephrosis at this point in time. No nephrolithiasis is seen. No roberto s are identified. The urinary bladder is anechoic. Bilateral ureteral jets are seen. IMPRESSION: No hydronephrosis. Ascites fluid is seen. No renal atrophy. Nonobstructing 9 mm calcification in the interpolar left kidney.
[2018-02-03] MEDS ORDERED: FUROSEMIDE 10 MG/ML 2 ML VIAL IV ONE (16:06)
[2018-02-03 17:24] LABS: Glucose,Whole Blood 99 mg/dL (75-99)
[2018-02-03] MEDS ORDERED: WARFARIN 2 MG TAB PO ONE (18:00)
[2018-02-03 21:16] LABS: Glucose,Whole Blood 141 mg/dL (75-99)
[2018-02-03] MEDS ORDERED: FUROSEMIDE 10 MG/ML 4 ML VIAL IV STA (21:44)
[2018-02-03] MEDS: HYDROmorphone 2 MG TAB PO PRN (22:47)
[2018-02-04 06:14] LABS: Glucose,Whole Blood 124 mg/dL (75-99)
[2018-02-04] MEDS: INSULIN ASPART 100 UNIT/ML 1 ML 10 ML VIAL SQ SCH ×4 (06:29→20:55)
[2018-02-04] MEDS: LEVOTHYROXINE 25 MCG TAB PO SCH (06:32)
[2018-02-04] MEDS: PANTOPRAZOLE 40 MG TABLET PO SCH ×2 (06:32→17:24)
[2018-02-04 07:25] LABS: INR 1.6 (<1.2); Prothrombin Time 14.4 sec (9.0-12.0)
[2018-02-04 07:29] LABS: Calcium 9.5 mg/dL (8.4-10.2); Potassium 5.3 mmol/L (3.5-5.1); Total Bilirubin 4.4 mg/dL (0.2-1.3)
[2018-02-04 07:40] LABS: Anisocytosis Slight; Basophils % (A) 0 %; Eosinophils % (A) 0 %; HCT 47.3 % (34.0-46.0); HGB 14.3 gm/dL (11.4-16.0); Hypochromasia Marked; Lymphocytes # (A) 0.7 k/uL (1.0-4.8); Lymphocytes % (A) 6 %; MCH 30.5 pg (25.0-35.0); MCHC 30.2 g/dL (31.0-37.0); Macrocytosis Moderate; Mean Platelet Volume 7.9; Monocytes # (A) 1.5 k/uL (0-1.0); Monocytes % (A) 12 %; Neutrophils # (A) 9.5 k/uL (1.3-7.7); Neutrophils % (A) 80 %; Platelet Count 133 k/uL (150-450); RBC 4.68 m/uL (3.80-5.40); RDW 17.8 % (11.5-15.5); WBC 11.8 k/uL (3.8-10.6)
[2018-02-04] MEDS: IPRATROPIUM-ALBUTEROL 3 ML NEB INHALATION SCH ×4 (08:18→20:29)
--- NOTE | 2018-02-04 08:23 | P.PN ---
Subjective Progress Note Date: 02/04/18 This is a 67-year-old female with history of prior right-sided CVA with expressive aphasia, chronic persistent atrial fibrillation, recurrent cellulitis of the right lower extremity, recurrent urinary tract infections, hypertension and hyperlipidemia. She was initially admitted on this occasion with hypoglycemia, Coumadin toxicity , acute kidney injury and altered mentation status. She did undergo an ERCP with removal of stone. On follow-up with the patient today, she continues to be lethargic. She does have generalized edema. The chest x-ray from yesterday revealed small bilateral pleural effusion with pulmonary vascular congestion as well. I am going to restart the patient on Lasix by mouth 20 mg by mouth daily. She has been gaining weight and she does have generalized edema and the chest x-ray showed findings consistent with CHF. Beside that I am going to give the patient 30 mg of Coumadin today and check the INR on her tomorrow. Her INR today is subtherapeutic. Beside that I would increase the dose of Cardizem to 90 mg by mouth 3 times a day for better heart rate control. Objective - Vital Signs Vital signs: Vital Signs Temp 97 F L 02/04/18 04:00 Pulse 114 H 02/04/18 04:00 Resp 18 02/04/18 04:00 BP 142/90 02/04/18 04:00 Pulse Ox 95 02/04/18 04:00 Intake & Output 02/03/18 02/04/18 02/04/18 18:59 06:59 18:59 Intake Total 110 Output Total 100 650 Balance 10 -650 Weight 115 kg Intake: IV 10 .9 10 Oral 100 Output: Urine 100 650 Uretheral (Bermudez) 150 Other: Voiding Method Diaper Diaper Incontinent Incontinent # Bowel Movements 0 - Constitutional General appearance: Present: no acute distress - Respiratory Respiratory: bilateral: diminished - Cardiovascular Rhythm: irregularly irregular - Labs CBC & Chem 7: 02/04/18 06:40 02/04/18 06:40 Labs: Abnormal Lab Results - Last 24 Hours (Table) 02/03/18 02/04/18 02/04/18 Range/Units 21:10 06:06 06:40 WBC 11.8 H (3.8-10.6) k/uL Hct 47.3 H (34.0-46.0) % MCV 101.0 H (80.0-100.0) fL MCHC 30.2 L (31.0-37.0) g/dL RDW 17.8 H (11.5-15.5) % Plt Count 133 L (150-450) k/uL Neutrophils # 9.5 H (1.3-7.7) k/uL Lymphocytes # 0.7 L (1.0-4.8) k/uL Monocytes # 1.5 H (0-1.0) k/uL PT (9.0-12.0) sec INR (<1.2) Sodium (137-145) mmol/L Potassium (3.5-5.1) mmol/L Carbon Dioxide (22-30) mmol/L BUN (7-17) mg/dL Creatinine (0.52-1.04) mg/dL POC Glucose (mg/dL) 141 H 124 H (75-99) mg/dL Total Bilirubin (0.2-1.3) mg/dL Alkaline Phosphatase (38-126) U/L Total Protein (6.3-8.2) g/dL Albumin (3.5-5.0) g/dL 02/04/18 02/04/18 Range/Units 06:40 06:40 WBC (3.8-10.6) k/uL Hct (34.0-46.0) % MCV (80.0-100.0) fL MCHC (31.0-37.0) g/dL RDW (11.5-15.5) % Plt Count (150-450) k/uL Neutrophils # (1.3-7.7) k/uL Lymphocytes # (1.0-4.8) k/uL Monocytes # (0-1.0) k/uL PT 14.4 H (9.0-12.0) sec INR 1.6 H (<1.2) Sodium 133 L (137-145) mmol/L Potassium 5.3 H (3.5-5.1) mmol/L Carbon Dioxide 20 L (22-30) mmol/L BUN 66 H (7-17) mg/dL Creatinine 2.08 H (0.52-1.04) mg/dL POC Glucose (mg/dL) (75-99) mg/dL Total Bilirubin 4.4 H (0.2-1.3) mg/dL Alkaline Phosphatase 196 H (38-126) U/L Total Protein 6.0 L (6.3-8.2) g/dL Albumin 3.0 L (3.5-5.0) g/dL Assessment and Plan Assessment: Assessment Chronic atrial fibrillation was relatively controlled heart rate History of CVA with expressive aphasia Multiple comorbid conditions Generalized edema Renal failure Plan Increase the dose of Cardizem for better heart rate control Continue oral anticoagulation with Coumadin Restart the patient on Lasix by mouth Monitor the kidney function and electrolytes Follow-up with the patient
[2018-02-04] MEDS: DILTIAZEM ORAL 30 MG TAB PO SCH ×3 (09:52→20:56)
[2018-02-04] MEDS: AMOXIC-POT CLAV 875-125MG 1 EACH TAB PO SCH (09:52)
[2018-02-04] MEDS: METOPROLOL TARTRATE 50 MG TAB PO SCH (09:52)
[2018-02-04] MEDS: FUROSEMIDE 20 MG TAB PO SCH (09:52)
--- NOTE | 2018-02-04 11:11 | P.PN ---
Subjective Progress Note Date: 02/04/18 Principal diagnosis: Elevated liver enzymes. 67-year-old female status post ERCP sphincterotomy 3 days ago with findings of multiple filling defects CBD stones. Total bili improved to 4.4. Transaminases improving. Anti-correlation restarted. Objective - Vital Signs Vital signs: Vital Signs Temp 97.1 F L 02/04/18 08:30 Pulse 98 02/04/18 08:30 Resp 18 02/04/18 08:30 BP 105/59 02/04/18 08:30 Pulse Ox 98 02/04/18 08:30 Intake & Output 02/03/18 02/04/18 02/04/18 18:59 06:59 18:59 Intake Total 110 10 Output Total 100 650 Balance 10 -650 10 Weight 115 kg Intake: IV 10 10 .9 10 10 Oral 100 Output: Urine 100 650 Uretheral (Bermudez) 150 Other: Voiding Method Diaper Diaper Diaper Incontinent Incontinent Incontinent # Bowel Movements 0 0 - Exam General appearance: The patient is alert, oriented, in no acute distress. Jaundice. HET: Head is normocephalic and atraumatic. Pupils are equal and reactive. Sclerae icterus. Oropharynx is clear without lesions. Neck: Supple without lymphadenopathy. Trachea midline. Heart: S1 S2. Regular rate and rhythm. Lungs: No crackles or wheezes are heard. Abdomen: Soft, nontender, nondistended with bowel sounds. No peritoneal signs. No palpable organomegaly or masses. Extremities: Mild erythema right lower extremity. Mild bilateral pedal edema. Radial and pedal pulses are 2/4 bilaterally. Neurological: No focal deficits. Strength and sensation are grossly intact. - Labs CBC & Chem 7: 02/04/18 06:40 02/04/18 06:40 Labs: Abnormal Lab Results - Last 24 Hours (Table) 02/03/18 02/04/18 02/04/18 Range/Units 21:10 06:06 06:40 WBC 11.8 H (3.8-10.6) k/uL Hct 47.3 H (34.0-46.0) % MCV 101.0 H (80.0-100.0) fL MCHC 30.2 L (31.0-37.0) g/dL RDW 17.8 H (11.5-15.5) % Plt Count 133 L (150-450) k/uL Neutrophils # 9.5 H (1.3-7.7) k/uL Lymphocytes # 0.7 L (1.0-4.8) k/uL Monocytes # 1.5 H (0-1.0) k/uL PT (9.0-12.0) sec INR (<1.2) Sodium (137-145) mmol/L Potassium (3.5-5.1) mmol/L Carbon Dioxide (22-30) mmol/L BUN (7-17) mg/dL Creatinine (0.52-1.04) mg/dL POC Glucose (mg/dL) 141 H 124 H (75-99) mg/dL Total Bilirubin (0.2-1.3) mg/dL Alkaline Phosphatase (38-126) U/L Total Protein (6.3-8.2) g/dL Albumin (3.5-5.0) g/dL 02/04/18 02/04/18 Range/Units 06:40 06:40 WBC (3.8-10.6) k/uL Hct (34.0-46.0) % MCV (80.0-100.0) fL MCHC (31.0-37.0) g/dL RDW (11.5-15.5) % Plt Count (150-450) k/uL Neutrophils # (1.3-7.7) k/uL Lymphocytes # (1.0-4.8) k/uL Monocytes # (0-1.0) k/uL PT 14.4 H (9.0-12.0) sec INR 1.6 H (<1.2) Sodium 133 L (137-145) mmol/L Potassium 5.3 H (3.5-5.1) mmol/L Carbon Dioxide 20 L (22-30) mmol/L BUN 66 H (7-17) mg/dL Creatinine 2.08 H (0.52-1.04) mg/dL POC Glucose (mg/dL) (75-99) mg/dL Total Bilirubin 4.4 H (0.2-1.3) mg/dL Alkaline Phosphatase 196 H (38-126) U/L Total Protein 6.0 L (6.3-8.2) g/dL Albumin 3.0 L (3.5-5.0) g/dL Assessment and Plan Assessment: Impression: 1. Sepsis septic shock possibly from UTI presently on broad-spectrum antibiotics gradually improving. 2. Elevated liver tests jaundice secondary to choledocholithiasis status post ERCP sphincterotomy with multiple filling defects seen CBD stones liver function tests improving. 3. Right lower extremity cellulitis. 4. History of CVA right-sided hemiparesis mild aphasia. 5. Warfarin-induced coagulopathy. Plan: 1. Continue present medical therapy as well as anticoagulation. LFT improving. DC per medicine. Assessment and plan of care discussed with Dr. Bosch
[2018-02-04 12:30] LABS: Albumin 3.1 g/dL (3.5-5.0); Bilirubin, Conjugated 1.3 mg/dL (0.0-0.3); Bilirubin, Delta 1.9 mg/dL (0.0-0.2); Bilirubin,Unconjugated 0.9 mg/dL (0.0-1.1); Total Bilirubin 4.1 mg/dL (0.2-1.3); Total Protein 6.2 g/dL (6.3-8.2)
[2018-02-04] MEDS: THIAMINE 100 MG TAB PO SCH (13:02)
[2018-02-04] MEDS: FOLIC ACID 1 MG TAB PO SCH (13:02)
[2018-02-04] MEDS: MULTIVITAMINS, THERA 1 EACH TAB PO SCH (13:02)
[2018-02-04 13:14] LABS: Glucose,Whole Blood 85 mg/dL (75-99)
--- NOTE | 2018-02-04 13:17 | CT ---
EXAMINATION TYPE: CT brain wo con DATE OF EXAM: 02/04/2018 HISTORY: Confusion CT DLP: 1230.4 mGycm. Automated Exposure Control for Dose Reduction was Utilized. TECHNIQUE: CT scan of the head is performed without contrast. COMPARISON: CT brain from [address] January 01, 2018 FINDINGS: There is no acute intracranial hemorrhage or midline shift identified. There is diffuse v entricular and sulcal prominence consistent with diffuse age-related cerebral atrophy. Asymmetric CSF prominence over bilateral frontal lobes is consistent with increased atrophy at this level. There is persistent large area of low density isointense to CSF in the left frontal region measuring roughly 7 x 4 cm transversely axial image 27 x 6.5 cm craniocaudal dimension coronal image 26 significant valerie nge from prior CT is. Slight ex vacuo dilatation of the adjacent left lateral ventricle is redemonstr ated. Some low-attenuation in the deep and periventricular white matter is again seen. Globes are int act and visualized sinuses are clear. IMPRESSION: No acute intracranial hemorrhage or midline shift. There is background mild to moderate diffuse age-related cerebral atrophy and chronic small vessel ischemic change with symmetric slightl y more prominent moderate bilateral frontal lobe atrophy. There is persistent large area of low dens ity left frontal parietal region could reflect evolving subacute on chronic infarct which would be fa vored, large arachnoid cyst not entirely excluded. Comparison with old outside CT and/or MRI would be extremely beneficial. No significant change from prior CTs noted.
--- NOTE | 2018-02-04 16:33 | PN ---
PROGRESS NOTE Patient is seen for followup for acute kidney injury which was mainly secondary to sepsis, hypotension, hypoperfusion. Patient's renal function had improved and serum creatinine was down to 1.16; however, it started to go up again to 1.7 yesterday and today 2.08 mg/dL. Patient was incontinent. Menard cath was replaced 500cc of urine obtained. She is maintained on IV Lasix for worsening edema which has been switched over to p.o. Lasix now. Mentation has decreased today. 200cc of urine for about 9 hrs today. Blood pressure on examination was 105/59, heart rate of 98 per minute. Patient is afebrile. EXAMINATION OF THE HEART: S1, S2. EXAMINATION OF LUNGS: Bilateral breath sounds are heard. ABDOMEN: Soft, non-tender. Examination of lower extremities shows chronic skin changes. Edema is noted 1+ bilaterally. It is improved compared to 2 days ago. Patient has right hemiparesis. Labs show sodium 133, potassium 5.3, chloride 100, BUN 66, serum creatinine 2.08 , hemoglobin 14.3 g/dL. ASSESSMENT: 1. Acute kidney injury with renal function worsening over the past 2 to 3 days again. Possibly secondary to urine retention and hypoperfusion HR was high and BP on the lower side. On cardizem and lopressor to control HR. Continue with current dose of lasix. 2. Mild hyperkalemia associated with worsening renal function. Need to also rule out urine retention. 3. Type 2 diabetes. 4. Cellulitis, lower extremities. 5. Elevated liver enzymes and hyperbilirubinemia, being followed by GI. 6. History of cerebrovascular accident and right hemiparesis. 7. Chronic atrial fibrillation with controlled ventricular response now, on cardizem and lopressor. PLAN: Repeat labs in am. Maintain menard cath. MMODL / IJN: [id number] / MTDD
[2018-02-04 17:00] LABS: Glucose,Whole Blood 71 mg/dL (75-99)
[2018-02-04] MEDS ORDERED: WARFARIN 3 MG TAB PO ONE (18:00)
--- NOTE | 2018-02-04 19:23 | P.PN ---
Subjective This is a pleasant 67 years old female who presents with signs and symptoms of sepsis with elevated liver enzymes, found to have biliary stones. She has been treated with Augmentin, Coumadin which was hold. Pain medication and Protonix. Patient at baseline answers yes/no, however she follows commands. When asking this morning she denies to me abdominal pain. She said she didn't have bowel movement and thus not bothering her. She denies nausea and vomiting. Also she denies to me urinary signs and symptoms. She has cellulitis of the right leg which is wrapped and improving. Patient continue on oxygen therapy 4 L/m via [place]. Patient is mildly dyspneic at WBC at 13.6 K reactive however her tachycardia is improving INR is 1.4. Patient's swelling in the abdominal wall and 3+ bilateral leg edema. Patient's currently on Lasix. However her creatinine is trending up however nephrology team are following the patient 02/03/2018 Patient mental status looks the same. Patient denies any pain including no abdominal pain. She didn't have bowel movement since yesterday. Her cellulitis of the right leg is improving with decreased swelling and redness, area looks nontender. Patient still have generally edematous including abdominal wall. With this. We will restriction and renal colic low potassium of cardiac diet with low sodium. Her creatinine is trending up from 1.1to1.4to1.7. Postvoid urine is negative/minimum as per staff. She still on 4 L oxygen via NC. WBC is 13.7 K but tachycardia is around 100 slightly better. INR is 1.5, with given Coumadin 2 mg today. Liver enzymes still mildly elevated and bilirubin is 4.6 02/04/2018 patient is more confused and sleepy today. CT of the brain shows persistent large area of low density, and shows resistant large area of low density in the left frontal region which could be related to her old infarct. No acute hemorrhage or midline shift.creatinine stranded up slightly from 1.7 to 2.0. Nephrology evaluated the patient and they recommended to repeat labs in the morning and to keep Bermudez at current dose of Lasix. Patient continue on Coumadin 3 mg per cardiology today. Continue with oxygen 3 L via NC with saturation high 90s. I discussed the case with Mr. Ferguson at bedside all discussed with the sister his CODE STATUS, he understands that she is currently remains full code. review of system : N/A. pt can not provide information due to her mental status medications: douneb 0.5-3 milligrams, Augmentin 875-125 mg, Cardizem 90 mg 3 times a day, folic acid 1 mg, Lasix 20 mg, Dilaudid 0.5, NovoLog sliding scale, levothyroxine, Lopressor 50 mg, multivitamin, Protonix 40 mg, thiamine 100 mg Objective - Vital Signs Vital signs: Vital Signs Temp 97.1 F L 02/04/18 08:30 Pulse 98 02/04/18 08:30 Resp 18 02/04/18 08:30 BP 105/59 02/04/18 08:30 Pulse Ox 98 02/04/18 08:30 Intake & Output 02/03/18 02/04/18 02/04/18 18:59 06:59 18:59 Intake Total 110 10 Output Total 100 650 Balance 10 -650 10 Weight 115 kg Intake: IV 10 10 .9 10 10 Oral 100 Output: Urine 100 650 Uretheral (Bermudez) 150 Other: Voiding Method Diaper Diaper Diaper Incontinent Incontinent Incontinent # Bowel Movements 0 0 - Exam -GENERAL: The patient is more sleepy today open eyes to verbal/tactile stimuli and go back to sleep, she answers yes and no , follow commands. not in any acute distress. Well developed, well nourished. HEENT: Pupils are round and equally reacting to light. EOMI. No scleral icterus. No conjunctival pallor. Normocephalic, atraumatic. No pharyngeal erythema. No thyromegaly. CARDIOVASCULAR: S1 and S2 present. No murmurs, rubs, or gallops. PULMONARY: Chest is clear to auscultation, no wheezing or crackles. -ABDOMEN: Soft, nontender, nondistended, normoactive bowel sounds. No palpable organomegaly. Abdominal wall edema MUSCULOSKELETAL: No joint swelling or deformity. -EXTREMITIES: No cyanosis, clubbing, . 3+ pedal edema. Improving right leg cellulitis NEUROLOGICAL: Gross neurological examination did not reveal any focal deficits. SKIN: No rashes. - Labs CBC & Chem 7: 02/04/18 06:40 02/04/18 06:40 Labs: Abnormal Lab Results - Last 24 Hours (Table) 02/03/18 02/04/18 02/04/18 Range/Units 21:10 06:06 06:40 WBC 11.8 H (3.8-10.6) k/uL Hct 47.3 H (34.0-46.0) % MCV 101.0 H (80.0-100.0) fL MCHC 30.2 L (31.0-37.0) g/dL RDW 17.8 H (11.5-15.5) % Plt Count 133 L (150-450) k/uL Neutrophils # 9.5 H (1.3-7.7) k/uL Lymphocytes # 0.7 L (1.0-4.8) k/uL Monocytes # 1.5 H (0-1.0) k/uL PT (9.0-12.0) sec INR (<1.2) Sodium (137-145) mmol/L Potassium (3.5-5.1) mmol/L Carbon Dioxide (22-30) mmol/L BUN (7-17) mg/dL Creatinine (0.52-1.04) mg/dL POC Glucose (mg/dL) 141 H 124 H (75-99) mg/dL Total Bilirubin (0.2-1.3) mg/dL Alkaline Phosphatase (38-126) U/L Total Protein (6.3-8.2) g/dL Albumin (3.5-5.0) g/dL 02/04/18 02/04/18 Range/Units 06:40 06:40 WBC (3.8-10.6) k/uL Hct (34.0-46.0) % MCV (80.0-100.0) fL MCHC (31.0-37.0) g/dL RDW (11.5-15.5) % Plt Count (150-450) k/uL Neutrophils # (1.3-7.7) k/uL Lymphocytes # (1.0-4.8) k/uL Monocytes # (0-1.0) k/uL PT 14.4 H (9.0-12.0) sec INR 1.6 H (<1.2) Sodium 133 L (137-145) mmol/L Potassium 5.3 H (3.5-5.1) mmol/L Carbon Dioxide 20 L (22-30) mmol/L BUN 66 H (7-17) mg/dL Creatinine 2.08 H (0.52-1.04) mg/dL POC Glucose (mg/dL) (75-99) mg/dL Total Bilirubin 4.4 H (0.2-1.3) mg/dL Alkaline Phosphatase 196 H (38-126) U/L Total Protein 6.0 L (6.3-8.2) g/dL Albumin 3.0 L (3.5-5.0) g/dL Assessment and Plan Assessment: Sepsis secondary to UTI and cellulitis, present on admission elevated liver enzymes and bilirubin with biliary stones, status post sphincterectomy on 02/01/2018 Gallstones Acute kidney injury Atrial fibrillation with RVR, on Coumadin Essential hypertension Acute kidney injury History of CVA with right hemiparesis and aphasia History of congestive heart failure Hyperlipidemia Plan: Female who presents with sepsis secondary GI and cellulitis with passing biliary stones. Labs and medication were reviewed. Continue with the same treatment. Continue symptomatic treatment. Resume home medication. Monitor lytes and vitals. IV Lasix for patient has fluid overload. Follow-up GI and nephrology teams recommendation. ID team are following the patient as well. CT of the head: No hemorrhage. Continue with antibiotics as per ID recommendation. Continue with Coumadin and follow up INR closely. DVT and GI prophylaxis. Further recommendation is based on the clinical course of the patient's. DVT prophylaxis: Patient is on Coumadin GI prophylaxis: Protonix Patient might benefit from ALBA Prognosis is guarded
[2018-02-04 20:54] LABS: Glucose,Whole Blood 98 mg/dL (75-99)
[2018-02-05] MEDS: AMOXIC-POT CLAV 875-125MG 1 EACH TAB PO SCH ×3 (00:18→19:58)
[2018-02-05 06:15] LABS: Glucose,Whole Blood 83 mg/dL (75-99)
[2018-02-05] MEDS: LEVOTHYROXINE 25 MCG TAB PO SCH (06:45)
[2018-02-05] MEDS: PANTOPRAZOLE 40 MG TABLET PO SCH ×2 (06:45→18:18)
[2018-02-05] MEDS: INSULIN ASPART 100 UNIT/ML 1 ML 10 ML VIAL SQ SCH ×4 (06:46→20:14)
[2018-02-05] MEDS: IPRATROPIUM-ALBUTEROL 3 ML NEB INHALATION SCH ×4 (07:36→20:22)
[2018-02-05 08:06] LABS: Anisocytosis Slight; Basophils % (A) 0 %; Eosinophils # (A) 0.1 k/uL (0-0.7); Eosinophils % (A) 0 %; HCT 49.4 % (34.0-46.0); HGB 14.8 gm/dL (11.4-16.0); Hypochromasia Marked; Lymphocytes # (A) 0.9 k/uL (1.0-4.8); Lymphocytes % (A) 7 %; MCH 30.5 pg (25.0-35.0); MCV 101.9 fL (80.0-100.0); Macrocytosis Moderate; Mean Platelet Volume 7.3; Monocytes # (A) 0.8 k/uL (0-1.0); Monocytes % (A) 6 %; Neutrophils # (A) 10.7 k/uL (1.3-7.7); Neutrophils % (A) 84 %; Platelet Count 141 k/uL (150-450); RBC 4.85 m/uL (3.80-5.40); RDW 17.7 % (11.5-15.5); WBC 12.6 k/uL (3.8-10.6)
[2018-02-05 08:16] LABS: INR 2.2 (<1.2); Prothrombin Time 19.5 sec (9.0-12.0)
[2018-02-05 08:39] LABS: Albumin 2.8 g/dL (3.5-5.0); Calcium 9.3 mg/dL (8.4-10.2); Total Bilirubin 3.6 mg/dL (0.2-1.3); Total Protein 5.8 g/dL (6.3-8.2)
[2018-02-05 08:52] LABS: Potassium 5.6 mmol/L (3.5-5.1)
[2018-02-05] MEDS ORDERED: SODIUM BICARB 8.4% 50 ML SYR (1 MEQ/ML) IV ONE (09:35)
[2018-02-05] MEDS ORDERED: INSULIN REGULAR 100 UNIT/ML VIAL IV ONE (09:37)
[2018-02-05] MEDS: FOLIC ACID 1 MG TAB PO SCH (09:38)
[2018-02-05] MEDS ORDERED: DEXTROSE 50%-WATER 50 ML SYRINGE IVP STA (09:38)
[2018-02-05] MEDS: DILTIAZEM ORAL 30 MG TAB PO SCH ×3 (09:38→19:56)
[2018-02-05] MEDS: FUROSEMIDE 20 MG TAB PO SCH (09:39)
[2018-02-05] MEDS: METOPROLOL TARTRATE 50 MG TAB PO SCH (09:39)
--- NOTE | 2018-02-05 10:15 | P.PN ---
Subjective Patient is seen in follow-up for acute kidney injury. Renal function slightly better today with creatinine at 2.01. She is a Bermudez catheter in place and is nonoliguric. Oral intake is fair. No vomiting or diarrhea. Denies chest pain or shortness of breath. Currently maintained on Lasix 20 mg once daily. Vital signs are stable. General: The patient appeared well nourished and normally developed. HEENT: Head exam is unremarkable. Neck is without jugular venous distension. LUNGS: Breath sounds decreased. HEART: Rate and Rhythm are regular. First and second heart sounds normal. No murmurs, rubs or gallops. ABDOMEN: Abdominal exam reveals normal bowel sounds. Non-tender and non- distended. No evidence of peritonitis. EXTREMITITES: 1+ edema. Objective - Vital Signs Vital signs: Vital Signs Temp 97.1 F L 02/05/18 04:00 Pulse 92 02/05/18 07:47 Resp 18 02/05/18 04:00 BP 109/81 02/05/18 04:00 Pulse Ox 94 L 02/05/18 04:00 Intake & Output 02/04/18 02/05/18 02/05/18 18:59 06:59 18:59 Intake Total 100 100 Output Total 200 700 Balance -100 -700 100 Weight 117 kg 117 kg Intake: IV 10 .9 10 Oral 90 100 Output: Urine 200 700 Uretheral (Bermudez) 400 Other: Voiding Method Indwelling Catheter Indwelling Catheter # Voids 500 # Bowel Movements 0 - Labs CBC & Chem 7: 02/05/18 07:19 02/05/18 07:19 Labs: Abnormal Lab Results - Last 24 Hours (Table) 02/04/18 02/04/18 02/05/18 Range/Units 06:40 16:54 07:19 WBC 12.6 H (3.8-10.6) k/uL Hct 49.4 H (34.0-46.0) % MCV 101.9 H (80.0-100.0) fL MCHC 30.0 L (31.0-37.0) g/dL RDW 17.7 H (11.5-15.5) % Plt Count 141 L (150-450) k/uL Neutrophils # 10.7 H (1.3-7.7) k/uL Lymphocytes # 0.9 L (1.0-4.8) k/uL PT (9.0-12.0) sec INR (<1.2) Sodium (137-145) mmol/L Potassium (3.5-5.1) mmol/L Carbon Dioxide (22-30) mmol/L BUN (7-17) mg/dL Creatinine (0.52-1.04) mg/dL POC Glucose (mg/dL) 71 L (75-99) mg/dL Total Bilirubin 4.1 H (0.2-1.3) mg/dL Conjugated Bilirubin 1.3 H (0.0-0.3) mg/dL Delta Bilirubin 1.9 H (0.0-0.2) mg/dL AST 37 H (14-36) U/L ALT 65 H (9-52) U/L Alkaline Phosphatase 199 H (38-126) U/L Total Protein 6.2 L (6.3-8.2) g/dL Albumin 3.1 L (3.5-5.0) g/dL 02/05/18 02/05/18 Range/Units 07:19 07:19 WBC (3.8-10.6) k/uL Hct (34.0-46.0) % MCV (80.0-100.0) fL MCHC (31.0-37.0) g/dL RDW (11.5-15.5) % Plt Count (150-450) k/uL Neutrophils # (1.3-7.7) k/uL Lymphocytes # (1.0-4.8) k/uL PT 19.5 H (9.0-12.0) sec INR 2.2 H (<1.2) Sodium 134 L (137-145) mmol/L Potassium 5.6 H (3.5-5.1) mmol/L Carbon Dioxide 20 L (22-30) mmol/L BUN 73 H (7-17) mg/dL Creatinine 2.01 H (0.52-1.04) mg/dL POC Glucose (mg/dL) (75-99) mg/dL Total Bilirubin 3.6 H (0.2-1.3) mg/dL Conjugated Bilirubin (0.0-0.3) mg/dL Delta Bilirubin (0.0-0.2) mg/dL AST 47 H (14-36) U/L ALT (9-52) U/L Alkaline Phosphatase 181 H (38-126) U/L Total Protein 5.8 L (6.3-8.2) g/dL Albumin 2.8 L (3.5-5.0) g/dL Assessment and Plan Plan: assessment: 1. Acute kidney injury secondary to ATN secondary to hypotension. Also component of urinary retention. Renal function slightly better with creatinine at 2.01 today. 2. Hyperkalemia secondary to acute kidney injury and metabolic acidosis. This is also a hemolyzed sample. 3. Urinary retention status post Bermudez catheter placement. 4. Diabetes mellitus. 5. Lower extremity cellulitis. 6. Elevated liver enzymes and hyperbilirubinemia being followed by GI. She underwent ERCP this admission. 7. Atrial fibrillation. Rate controlled. 8. Metabolic acidosis secondary to acute kidney injury. Plan: Continue Lasix 20 mg orally once daily. Encourage oral intake. Add oral sodium bicarbonate. 10 units of IV regular insulin with an amp of D50 now. Repeat potassium level this evening. Repeat electrolytes in the morning. Check chest x-ray tomorrow.
--- NOTE | 2018-02-05 10:33 | P.PN ---
Subjective Progress Note Date: 02/05/18 Principal diagnosis: Chronic A. fib This is a 67-year-old female with history of prior right-sided CVA with expressive aphasia, chronic persistent atrial fibrillation, recurrent cellulitis of the right lower extremity, recurrent urinary tract infections, hypertension and hyperlipidemia. She was initially admitted on this occasion with hypoglycemia, Coumadin toxicity , acute kidney injury and altered mentation status. She did undergo an ERCP with removal of stone. On follow-up with the patient today, she is less lethargic. She does have generalized edema. The last chest x-ray from yesterday revealed small bilateral pleural effusion with pulmonary vascular congestion as well. The creatinine is better. Objective - Vital Signs Vital signs: Vital Signs Temp 97.1 F L 02/05/18 04:00 Pulse 92 02/05/18 07:47 Resp 18 02/05/18 04:00 BP 109/81 02/05/18 04:00 Pulse Ox 94 L 02/05/18 04:00 Intake & Output 02/04/18 02/05/18 02/05/18 18:59 06:59 18:59 Intake Total 100 100 Output Total 200 700 Balance -100 -700 100 Weight 117 kg 117 kg Intake: IV 10 .9 10 Oral 90 100 Output: Urine 200 700 Uretheral (Bermudez) 400 Other: Voiding Method Indwelling Catheter Indwelling Catheter # Voids 500 # Bowel Movements 0 - Constitutional General appearance: Present: no acute distress - Respiratory Respiratory: bilateral: diminished - Cardiovascular Rhythm: irregularly irregular Heart sounds: normal: S1, S2 - Labs CBC & Chem 7: 02/05/18 07:19 02/05/18 07:19 Labs: Abnormal Lab Results - Last 24 Hours (Table) 02/04/18 02/04/18 02/05/18 Range/Units 06:40 16:54 07:19 WBC 12.6 H (3.8-10.6) k/uL Hct 49.4 H (34.0-46.0) % MCV 101.9 H (80.0-100.0) fL MCHC 30.0 L (31.0-37.0) g/dL RDW 17.7 H (11.5-15.5) % Plt Count 141 L (150-450) k/uL Neutrophils # 10.7 H (1.3-7.7) k/uL Lymphocytes # 0.9 L (1.0-4.8) k/uL PT (9.0-12.0) sec INR (<1.2) Sodium (137-145) mmol/L Potassium (3.5-5.1) mmol/L Carbon Dioxide (22-30) mmol/L BUN (7-17) mg/dL Creatinine (0.52-1.04) mg/dL POC Glucose (mg/dL) 71 L (75-99) mg/dL Total Bilirubin 4.1 H (0.2-1.3) mg/dL Conjugated Bilirubin 1.3 H (0.0-0.3) mg/dL Delta Bilirubin 1.9 H (0.0-0.2) mg/dL AST 37 H (14-36) U/L ALT 65 H (9-52) U/L Alkaline Phosphatase 199 H (38-126) U/L Total Protein 6.2 L (6.3-8.2) g/dL Albumin 3.1 L (3.5-5.0) g/dL 02/05/18 02/05/18 Range/Units 07:19 07:19 WBC (3.8-10.6) k/uL Hct (34.0-46.0) % MCV (80.0-100.0) fL MCHC (31.0-37.0) g/dL RDW (11.5-15.5) % Plt Count (150-450) k/uL Neutrophils # (1.3-7.7) k/uL Lymphocytes # (1.0-4.8) k/uL PT 19.5 H (9.0-12.0) sec INR 2.2 H (<1.2) Sodium 134 L (137-145) mmol/L Potassium 5.6 H (3.5-5.1) mmol/L Carbon Dioxide 20 L (22-30) mmol/L BUN 73 H (7-17) mg/dL Creatinine 2.01 H (0.52-1.04) mg/dL POC Glucose (mg/dL) (75-99) mg/dL Total Bilirubin 3.6 H (0.2-1.3) mg/dL Conjugated Bilirubin (0.0-0.3) mg/dL Delta Bilirubin (0.0-0.2) mg/dL AST 47 H (14-36) U/L ALT (9-52) U/L Alkaline Phosphatase 181 H (38-126) U/L Total Protein 5.8 L (6.3-8.2) g/dL Albumin 2.8 L (3.5-5.0) g/dL Assessment and Plan Assessment: Assessment Chronic atrial fibrillation was relatively controlled heart rate History of CVA with expressive aphasia Multiple comorbid conditions Generalized edema Renal failure Plan Continue the current dose of Cardizem by mouth Continue oral anticoagulation with Coumadin Continue the current dose of Lasix by mouth Monitor the kidney function and electrolytes Follow-up with the patient
[2018-02-05 11:37] LABS: Glucose,Whole Blood 200 mg/dL (75-99)
--- NOTE | 2018-02-05 12:21 | P.PN ---
Subjective This is a pleasant 67 years old female who presents with signs and symptoms of sepsis with elevated liver enzymes, found to have biliary stones. She has been treated with Augmentin, Coumadin which was hold. Pain medication and Protonix. Patient at baseline answers yes/no, however she follows commands. When asking this morning she denies to me abdominal pain. She said she didn't have bowel movement and thus not bothering her. She denies nausea and vomiting. Also she denies to me urinary signs and symptoms. She has cellulitis of the right leg which is wrapped and improving. Patient continue on oxygen therapy 4 L/m via NC. Patient is mildly dyspneic at WBC at 13.6 K reactive however her tachycardia is improving INR is 1.4. Patient's swelling in the abdominal wall and 3+ bilateral leg edema. Patient's currently on Lasix. However her creatinine is trending up however nephrology team are following the patient 02/03/2018 Patient mental status looks the same. Patient denies any pain including no abdominal pain. She didn't have bowel movement since yesterday. Her cellulitis of the right leg is improving with decreased swelling and redness, area looks nontender. Patient still have generally edematous including abdominal wall. With this. We will restriction and renal colic low potassium of cardiac diet with low sodium. Her creatinine is trending up from 1.1to1.4to1.7. Postvoid urine is negative/minimum as per staff. She still on 4 L oxygen via NC. WBC is 13.7 K but tachycardia is around 100 slightly better. INR is 1.5, with given Coumadin 2 mg today. Liver enzymes still mildly elevated and bilirubin is 4.6 02/04/2018 patient is more confused and sleepy today. CT of the brain shows persistent large area of low density, and shows resistant large area of low density in the left frontal region which could be related to her old infarct. No acute hemorrhage or midline shift.creatinine stranded up slightly from 1.7 to 2.0. Nephrology evaluated the patient and they recommended to repeat labs in the morning and to keep Bermudez at current dose of Lasix. Patient continue on Coumadin 3 mg per cardiology today. Continue with oxygen 3 L via NC with saturation high 90s. I discussed the case with Mr. Ferguson at bedside all discussed with the sister his CODE STATUS, he understands that she is currently remains full code. 02/05/2018 Patient is more awake today, and she is back at her baseline as per son at bedside. Patient still looks edematous however her breathing is quiet. She has a right hemiparesis which is more swollen home diffuse. Her INR today is 2.2 after she got 3 units of Coumadin last night. Resume Coumadin 2 mg daily and keep INR between 2 and 3. Potassium this morning was 5.6 and she gets therapy as per nephrology recommendation medications: douneb 0.5-3 milligrams, Augmentin 875-125 mg, Cardizem 90 mg 3 times a day, folic acid 1 mg, Lasix 20 mg, Dilaudid 0.5, NovoLog sliding scale, levothyroxine, Lopressor 50 mg, multivitamin, Protonix 40 mg, thiamine 100 mg Objective - Vital Signs Vital signs: Vital Signs Temp 97.1 F L 02/05/18 04:00 Pulse 88 02/05/18 11:37 Resp 18 02/05/18 04:00 BP 109/81 02/05/18 04:00 Pulse Ox 94 L 02/05/18 04:00 Intake & Output 02/04/18 02/05/18 02/05/18 18:59 06:59 18:59 Intake Total 100 100 Output Total 200 700 Balance -100 -700 100 Weight 117 kg 117 kg Intake: IV 10 .9 10 Oral 90 100 Output: Urine 200 700 Uretheral (Bermudez) 400 Other: Voiding Method Indwelling Catheter Indwelling Catheter # Voids 500 # Bowel Movements 0 - Exam -GENERAL: The patient is more sleepy today open eyes to verbal/tactile stimuli and go back to sleep, she answers yes and no , follow commands. not in any acute distress. Well developed, well nourished. HEENT: Pupils are round and equally reacting to light. EOMI. No scleral icterus. No conjunctival pallor. Normocephalic, atraumatic. No pharyngeal erythema. No thyromegaly. CARDIOVASCULAR: S1 and S2 present. No murmurs, rubs, or gallops. PULMONARY: Chest is clear to auscultation, no wheezing or crackles. -ABDOMEN: Soft, nontender, nondistended, normoactive bowel sounds. No palpable organomegaly. Abdominal wall edema MUSCULOSKELETAL: No joint swelling or deformity. -EXTREMITIES: No cyanosis, clubbing, . 3+ pedal edema. Improving right leg cellulitis NEUROLOGICAL: Gross neurological examination did not reveal any focal deficits. SKIN: No rashes. - Labs CBC & Chem 7: 02/05/18 07:19 02/05/18 07:19 Labs: Abnormal Lab Results - Last 24 Hours (Table) 02/04/18 02/04/18 02/05/18 Range/Units 06:40 16:54 07:19 WBC 12.6 H (3.8-10.6) k/uL Hct 49.4 H (34.0-46.0) % MCV 101.9 H (80.0-100.0) fL MCHC 30.0 L (31.0-37.0) g/dL RDW 17.7 H (11.5-15.5) % Plt Count 141 L (150-450) k/uL Neutrophils # 10.7 H (1.3-7.7) k/uL Lymphocytes # 0.9 L (1.0-4.8) k/uL PT (9.0-12.0) sec INR (<1.2) Sodium (137-145) mmol/L Potassium (3.5-5.1) mmol/L Carbon Dioxide (22-30) mmol/L BUN (7-17) mg/dL Creatinine (0.52-1.04) mg/dL POC Glucose (mg/dL) 71 L (75-99) mg/dL Total Bilirubin 4.1 H (0.2-1.3) mg/dL Conjugated Bilirubin 1.3 H (0.0-0.3) mg/dL Delta Bilirubin 1.9 H (0.0-0.2) mg/dL AST 37 H (14-36) U/L ALT 65 H (9-52) U/L Alkaline Phosphatase 199 H (38-126) U/L Total Protein 6.2 L (6.3-8.2) g/dL Albumin 3.1 L (3.5-5.0) g/dL 02/05/18 02/05/18 02/05/18 Range/Units 07:19 07:19 11:35 WBC (3.8-10.6) k/uL Hct (34.0-46.0) % MCV (80.0-100.0) fL MCHC (31.0-37.0) g/dL RDW (11.5-15.5) % Plt Count (150-450) k/uL Neutrophils # (1.3-7.7) k/uL Lymphocytes # (1.0-4.8) k/uL PT 19.5 H (9.0-12.0) sec INR 2.2 H (<1.2) Sodium 134 L (137-145) mmol/L Potassium 5.6 H (3.5-5.1) mmol/L Carbon Dioxide 20 L (22-30) mmol/L BUN 73 H (7-17) mg/dL Creatinine 2.01 H (0.52-1.04) mg/dL POC Glucose (mg/dL) 200 H (75-99) mg/dL Total Bilirubin 3.6 H (0.2-1.3) mg/dL Conjugated Bilirubin (0.0-0.3) mg/dL Delta Bilirubin (0.0-0.2) mg/dL AST 47 H (14-36) U/L ALT (9-52) U/L Alkaline Phosphatase 181 H (38-126) U/L Total Protein 5.8 L (6.3-8.2) g/dL Albumin 2.8 L (3.5-5.0) g/dL Assessment and Plan Assessment: Sepsis secondary to UTI and cellulitis, present on admission elevated liver enzymes and bilirubin with biliary stones, status post sphincterectomy on 02/01/2018 Gallstones Acute kidney injury Atrial fibrillation with RVR, on Coumadin Essential hypertension Acute kidney injury History of CVA with right hemiparesis and aphasia History of congestive heart failure Hyperlipidemia Plan: Female who presents with sepsis secondary GI and cellulitis with passing biliary stones. Labs and medication were reviewed. Continue with the same treatment. Continue symptomatic treatment. Resume home medication. Monitor lytes and vitals. IV Lasix for patient has fluid overload. Follow-up GI and nephrology teams recommendation. ID team are following the patient as well. CT of the head: No hemorrhage. Continue with antibiotics as per ID recommendation. Continue with Coumadin and follow up INR closely. DVT and GI prophylaxis. Further recommendation is based on the clinical course of the patient's. DVT prophylaxis: Patient is on Coumadin GI prophylaxis: Protonix Patient might benefit from ALBA Prognosis is guarded
[2018-02-05] MEDS: SODIUM BICARBONATE TAB 650 MG TAB PO SCH ×2 (16:50→21:38)
[2018-02-05] MEDS: THIAMINE 100 MG TAB PO SCH (16:50)
[2018-02-05] MEDS: WARFARIN 2 MG TAB PO SCH (16:50)
[2018-02-05] MEDS: MULTIVITAMINS, THERA 1 EACH TAB PO SCH (16:50)
[2018-02-05 16:55] LABS: Glucose,Whole Blood 122 mg/dL (75-99)
[2018-02-05 20:12] LABS: Glucose,Whole Blood 111 mg/dL (75-99)
[2018-02-06 05:57] LABS: Glucose,Whole Blood 98 mg/dL (75-99)
[2018-02-06] MEDS: INSULIN ASPART 100 UNIT/ML 1 ML 10 ML VIAL SQ SCH ×4 (06:08→20:07)
[2018-02-06] MEDS: LEVOTHYROXINE 25 MCG TAB PO SCH (06:09)
[2018-02-06] MEDS: PANTOPRAZOLE 40 MG TABLET PO SCH ×2 (06:09→16:37)
[2018-02-06 06:58] LABS: Anisocytosis Slight; Basophils % (A) 0 %; Eosinophils # (A) 0.1 k/uL (0-0.7); Eosinophils % (A) 1 %; HCT 47.6 % (34.0-46.0); HGB 14.8 gm/dL (11.4-16.0); Hypochromasia Marked; Lymphocytes # (A) 0.6 k/uL (1.0-4.8); Lymphocytes % (A) 5 %; MCH 31.5 pg (25.0-35.0); MCV 101.6 fL (80.0-100.0); Macrocytosis Moderate; Mean Platelet Volume 7.6; Monocytes # (A) 0.8 k/uL (0-1.0); Monocytes % (A) 7 %; Neutrophils # (A) 10.2 k/uL (1.3-7.7); Neutrophils % (A) 86 %; Platelet Count 128 k/uL (150-450); RBC 4.68 m/uL (3.80-5.40); RDW 17.8 % (11.5-15.5); WBC 11.8 k/uL (3.8-10.6)
[2018-02-06 07:07] LABS: INR 2.4 (<1.2); Prothrombin Time 21.7 sec (9.0-12.0)
[2018-02-06 07:26] LABS: Albumin 2.9 g/dL (3.5-5.0); Calcium 9.4 mg/dL (8.4-10.2); Magnesium 2.5 mg/dL (1.6-2.3); Total Bilirubin 3.1 mg/dL (0.2-1.3); Total Protein 5.9 g/dL (6.3-8.2)
[2018-02-06] MEDS: IPRATROPIUM-ALBUTEROL 3 ML NEB INHALATION SCH ×4 (07:28→20:28)
[2018-02-06 07:48] LABS: Potassium 5.2 mmol/L (3.5-5.1)
--- NOTE | 2018-02-06 09:27 | XR ---
EXAMINATION TYPE: XR chest 2V DATE OF EXAM: 02/06/2018 COMPARISON: Chest x-ray from 3 days ago. HISTORY: Shortness of breath. TECHNIQUE: Frontal and lateral views of the chest are obtained. FINDINGS: There is stable left-sided PICC line. There is persistent gross cardiomegaly. There are p ersistent small to moderate-sized bilateral pleural effusions seen best on lateral chest x-ray. There is persistent moderate central vascular congestion. The osseous structures are intact. IMPRESSION: Findings consistent with CHF exacerbation remain present as there is cardiomegaly with m oderate central vascular congestion and small to moderate bilateral pleural effusions redemonstrated. No significant change from most recent chest x-ray.
[2018-02-06] MEDS: MULTIVITAMINS, THERA 1 EACH TAB PO SCH (10:25)
[2018-02-06] MEDS: THIAMINE 100 MG TAB PO SCH (10:25)
[2018-02-06] MEDS: AMOXIC-POT CLAV 875-125MG 1 EACH TAB PO SCH ×2 (10:25→19:56)
[2018-02-06] MEDS: FUROSEMIDE 20 MG TAB PO SCH (10:26)
[2018-02-06] MEDS: DILTIAZEM ORAL 30 MG TAB PO SCH ×3 (10:26→19:56)
[2018-02-06] MEDS: SODIUM BICARBONATE TAB 650 MG TAB PO SCH ×2 (10:26→19:56)
[2018-02-06] MEDS: METOPROLOL TARTRATE 50 MG TAB PO SCH (10:26)
[2018-02-06] MEDS: FOLIC ACID 1 MG TAB PO SCH (10:26)
--- NOTE | 2018-02-06 11:33 | P.PN ---
Subjective Patient is seen in follow-up for acute kidney injury. Renal function slightly better today with creatinine at 1.96. She is a Bermudez catheter in place and is nonoliguric. Oral intake is fair. No vomiting or diarrhea. Denies chest pain or shortness of breath. Currently maintained on Lasix 20 mg once daily. Chest x-ray suggestive of vascular congestion and pleural effusions. Vital signs are stable. General: The patient appeared well nourished and normally developed. HEENT: Head exam is unremarkable. Neck is without jugular venous distension. LUNGS: Breath sounds decreased. HEART: Rate and Rhythm are regular. First and second heart sounds normal. No murmurs, rubs or gallops. ABDOMEN: Abdominal exam reveals normal bowel sounds. Non-tender and non- distended. No evidence of peritonitis. EXTREMITITES: 1+ edema. Objective - Vital Signs Vital signs: Vital Signs Temp 97 F L 02/05/18 23:42 Pulse 88 02/06/18 11:25 Resp 18 02/06/18 03:01 BP 110/76 02/06/18 03:01 Pulse Ox 97 02/06/18 03:01 Intake & Output 02/05/18 02/06/18 02/06/18 18:59 06:59 18:59 Intake Total 550 10 125 Output Total 1000 Balance 550 -990 125 Weight 117 kg 116.5 kg Intake: IV 10 .9 10 Oral 550 125 Output: Urine 1000 Other: Voiding Method Indwelling Catheter Indwelling Catheter # Bowel Movements 0 - Labs CBC & Chem 7: 02/06/18 06:20 02/06/18 06:20 Labs: Abnormal Lab Results - Last 24 Hours (Table) 02/05/18 02/05/18 02/05/18 Range/Units 11:35 16:54 20:11 WBC (3.8-10.6) k/uL Hct (34.0-46.0) % MCV (80.0-100.0) fL RDW (11.5-15.5) % Plt Count (150-450) k/uL Neutrophils # (1.3-7.7) k/uL Lymphocytes # (1.0-4.8) k/uL PT (9.0-12.0) sec INR (<1.2) Sodium (137-145) mmol/L Potassium (3.5-5.1) mmol/L BUN (7-17) mg/dL Creatinine (0.52-1.04) mg/dL Glucose (74-99) mg/dL POC Glucose (mg/dL) 200 H 122 H 111 H (75-99) mg/dL Magnesium (1.6-2.3) mg/dL Total Bilirubin (0.2-1.3) mg/dL AST (14-36) U/L Alkaline Phosphatase (38-126) U/L Total Protein (6.3-8.2) g/dL Albumin (3.5-5.0) g/dL 02/06/18 02/06/18 02/06/18 Range/Units 06:20 06:20 06:20 WBC 11.8 H (3.8-10.6) k/uL Hct 47.6 H (34.0-46.0) % MCV 101.6 H (80.0-100.0) fL RDW 17.8 H (11.5-15.5) % Plt Count 128 L (150-450) k/uL Neutrophils # 10.2 H (1.3-7.7) k/uL Lymphocytes # 0.6 L (1.0-4.8) k/uL PT 21.7 H (9.0-12.0) sec INR 2.4 H (<1.2) Sodium 136 L (137-145) mmol/L Potassium 5.2 H (3.5-5.1) mmol/L BUN 76 H (7-17) mg/dL Creatinine 1.96 H (0.52-1.04) mg/dL Glucose 106 H (74-99) mg/dL POC Glucose (mg/dL) (75-99) mg/dL Magnesium 2.5 H (1.6-2.3) mg/dL Total Bilirubin 3.1 H (0.2-1.3) mg/dL AST 45 H (14-36) U/L Alkaline Phosphatase 191 H (38-126) U/L Total Protein 5.9 L (6.3-8.2) g/dL Albumin 2.9 L (3.5-5.0) g/dL Assessment and Plan Plan: assessment: 1. Acute kidney injury secondary to ATN secondary to hypotension. Also component of urinary retention. Renal function slightly better with creatinine at 1.96 today. 2. Hyperkalemia secondary to acute kidney injury and metabolic acidosis. This is also a hemolyzed sample. Better today. 3. Urinary retention status post Bermudez catheter placement. 4. Diabetes mellitus. 5. Lower extremity cellulitis. 6. Elevated liver enzymes and hyperbilirubinemia being followed by GI. She underwent ERCP this admission. 7. Atrial fibrillation. Rate controlled. 8. Metabolic acidosis secondary to acute kidney injury. Better. 9. Volume overload. Plan: Continue Lasix 20 mg orally once daily. Additional Lasix 40 mg IV once today. Encourage oral intake. Maintain oral sodium bicarbonate. Repeat potassium level this evening. Repeat electrolytes in the morning.
[2018-02-06] MEDS ORDERED: FUROSEMIDE 10 MG/ML 4 ML VIAL IV STA (11:38)
--- NOTE | 2018-02-06 11:57 | P.PN ---
Subjective Progress Note Date: 02/06/18 Principal diagnosis: Sepsis, septic shock secondary to cellulitis and UTI with enterococcus This is a 67-year-old female with history of prior right-sided CVA with expressive aphasia, COPD, chronic persistent atrial fibrillation, recurrent cellulitis of the right lower extremity, recurrent urinary tract infections, hypertension and hyperlipidemia. She was initially admitted on this occasion with hypoglycemia, Coumadin toxicity, acute kidney injury and altered mentation status. Currently receiving treatment for a UTI. Patient was seen today in follow-up on the telemetry unit, she continues to be somewhat lethargic but arouses to verbal stimuli. Denies any shortness of breath, pulse ox per nasal cannula at 2 L is 97%, she is afebrile, mildly tachycardic with a heart rate of 108, blood and urine cultures remain negative. White blood cell count 11.1, hemoglobin 13.8, INR 1.6 today. Sodium 135. BUN 49 and creatinine 1.2. LFTs are trending down. 02/06/2018 Patient seen and examined this morning, creatinine 1.9 today. Breathing is overall stable. Chest x-ray reveals vascular congestion and pleural effusions.blood pressure 110/70 with a heart rate in the 80s, 97% on 3 L of oxygen.INR today 2.4, potassium 5.2.continues to have generalized edema. On oral diuretics. Objective - Vital Signs Vital signs: Vital Signs Temp 97 F L 02/05/18 23:42 Pulse 88 02/06/18 11:25 Resp 18 02/06/18 03:01 BP 110/76 02/06/18 03:01 Pulse Ox 97 02/06/18 03:01 Intake & Output 02/05/18 02/06/18 02/06/18 18:59 06:59 18:59 Intake Total 550 10 125 Output Total 1000 Balance 550 -990 125 Weight 117 kg 116.5 kg Intake: IV 10 .9 10 Oral 550 125 Output: Urine 1000 Other: Voiding Method Indwelling Catheter Indwelling Catheter # Bowel Movements 0 - Exam Physical Exam: Revealed a 67-year-old female, in no distress, aphasic.. Head: Atraumatic, normocephalic, moist mucous membranes noted. HEENT:[Neck is supple.] [No neck masses.] [No thyromegaly.] [No JVD.] PERRLA, EOMI, no icterus. Chest: [Diminished breath sounds at the bases, no crackles, no wheezes. Cardiac Exam: [Irregular irregular rhythm. Normal S1 and S2, no S3 gallop, no murmur.] Abdomen: [Soft, nontender, no megaly, no rebound, no guarding, normal bowel sounds.] Extremities: Chronic edema and discoloration of lower extremities noted bilaterally, related to chronic and recurrent cellulitis. No open wounds noted. Neurological Exam: Expressive aphasia noted, right-sided hemiplegia is noted, Lymphatics: No lymphadenopathy. Skin: Erythematous changes noted in both lower extremities as noted above. - Labs CBC & Chem 7: 02/06/18 06:20 02/06/18 06:20 Labs: Abnormal Lab Results - Last 24 Hours (Table) 02/05/18 02/05/18 02/06/18 Range/Units 16:54 20:11 06:20 WBC 11.8 H (3.8-10.6) k/uL Hct 47.6 H (34.0-46.0) % MCV 101.6 H (80.0-100.0) fL RDW 17.8 H (11.5-15.5) % Plt Count 128 L (150-450) k/uL Neutrophils # 10.2 H (1.3-7.7) k/uL Lymphocytes # 0.6 L (1.0-4.8) k/uL PT (9.0-12.0) sec INR (<1.2) Sodium (137-145) mmol/L Potassium (3.5-5.1) mmol/L BUN (7-17) mg/dL Creatinine (0.52-1.04) mg/dL Glucose (74-99) mg/dL POC Glucose (mg/dL) 122 H 111 H (75-99) mg/dL Magnesium (1.6-2.3) mg/dL Total Bilirubin (0.2-1.3) mg/dL AST (14-36) U/L Alkaline Phosphatase (38-126) U/L Total Protein (6.3-8.2) g/dL Albumin (3.5-5.0) g/dL 02/06/18 02/06/18 Range/Units 06:20 06:20 WBC (3.8-10.6) k/uL Hct (34.0-46.0) % MCV (80.0-100.0) fL RDW (11.5-15.5) % Plt Count (150-450) k/uL Neutrophils # (1.3-7.7) k/uL Lymphocytes # (1.0-4.8) k/uL PT 21.7 H (9.0-12.0) sec INR 2.4 H (<1.2) Sodium 136 L (137-145) mmol/L Potassium 5.2 H (3.5-5.1) mmol/L BUN 76 H (7-17) mg/dL Creatinine 1.96 H (0.52-1.04) mg/dL Glucose 106 H (74-99) mg/dL POC Glucose (mg/dL) (75-99) mg/dL Magnesium 2.5 H (1.6-2.3) mg/dL Total Bilirubin 3.1 H (0.2-1.3) mg/dL AST 45 H (14-36) U/L Alkaline Phosphatase 191 H (38-126) U/L Total Protein 5.9 L (6.3-8.2) g/dL Albumin 2.9 L (3.5-5.0) g/dL Assessment and Plan Plan: Assessment and plan: #1 Acute sepsis and septic shock, could be secondary to urinary tract infection or could also be related to cellulitis., Blood cultures are negative so far. Antibiotics on board empirically in the form of cefepime and vancomycin. #2 acute Coumadin toxicity #3 acute hepatitis, etiology is not clear, we will continue to monitor liver enzymes. #4 acute kidney injury, improving most likely secondary to ATN secondary to sepsis and hypotension. #5 chronic atrial fibrillation with RVR. #6 History of CVA, with right-sided hemiplegia and expressive aphasia #7. Essential hypertension #8 recurrent urinary tract infection with enterococcus #9 diabetes, with episode of hypoglycemia on admission. Treated and resolved. #10 chronic obstructive pulmonary disease Plan From cardiology's perspective, we'll continue current medications. Continue to monitor kidney function and electrolytes. DNP note has been reviewed, I agree with a documented findings and plan of care. Patient was seen and examined.
[2018-02-06 12:09] LABS: Glucose,Whole Blood 138 mg/dL (75-99)
[2018-02-06] MEDS: WARFARIN 2 MG TAB PO SCH (16:38)
[2018-02-06 16:52] LABS: Glucose,Whole Blood 116 mg/dL (75-99)
--- NOTE | 2018-02-06 17:29 | P.PN ---
Subjective Patient resting in bed easily aroused. Noted discoloration to toes. Discussed with nurse will bring into Dr. Lomax's attention. Continues with generalized anasarca Objective - Vital Signs Vital signs: Vital Signs Temp 97.4 F L 02/06/18 16:00 Pulse 96 02/06/18 16:00 Resp 18 02/06/18 16:00 BP 95/73 02/06/18 16:00 Pulse Ox 96 02/06/18 16:00 Intake & Output 02/05/18 02/06/18 02/06/18 18:59 06:59 18:59 Intake Total 550 10 245 Output Total 1000 400 Balance 550 -990 -155 Weight 117 kg 116.5 kg Intake: IV 10 .9 10 Oral 550 245 Output: Urine 1000 400 Other: Voiding Method Indwelling Catheter Indwelling Catheter Indwelling Catheter # Bowel Movements 0 0 - Constitutional General appearance: Present: obese - EENT Eyes: Present: PERRLA Ears: bilateral: normal - Neck Neck: Present: normal ROM - Respiratory Respiratory: bilateral: diminished - Cardiovascular Rhythm: irregularly irregular Abnormal Heart Sounds: Present: systolic murmur - Gastrointestinal General gastrointestinal: Present: soft - Integumentary Integumentary Comment(s): Generalized anasarca - Musculoskeletal Musculoskeletal: Present: generalized weakness, right sided weakness - Labs CBC & Chem 7: 02/06/18 06:20 02/06/18 15:51 Labs: Abnormal Lab Results - Last 24 Hours (Table) 02/05/18 02/06/18 02/06/18 Range/Units 20:11 06:20 06:20 WBC 11.8 H (3.8-10.6) k/uL Hct 47.6 H (34.0-46.0) % MCV 101.6 H (80.0-100.0) fL RDW 17.8 H (11.5-15.5) % Plt Count 128 L (150-450) k/uL Neutrophils # 10.2 H (1.3-7.7) k/uL Lymphocytes # 0.6 L (1.0-4.8) k/uL PT 21.7 H (9.0-12.0) sec INR 2.4 H (<1.2) Sodium (137-145) mmol/L Potassium (3.5-5.1) mmol/L BUN (7-17) mg/dL Creatinine (0.52-1.04) mg/dL Glucose (74-99) mg/dL POC Glucose (mg/dL) 111 H (75-99) mg/dL Magnesium (1.6-2.3) mg/dL Total Bilirubin (0.2-1.3) mg/dL AST (14-36) U/L Alkaline Phosphatase (38-126) U/L Total Protein (6.3-8.2) g/dL Albumin (3.5-5.0) g/dL 02/06/18 02/06/18 02/06/18 Range/Units 06:20 12:07 15:51 WBC (3.8-10.6) k/uL Hct (34.0-46.0) % MCV (80.0-100.0) fL RDW (11.5-15.5) % Plt Count (150-450) k/uL Neutrophils # (1.3-7.7) k/uL Lymphocytes # (1.0-4.8) k/uL PT (9.0-12.0) sec INR (<1.2) Sodium 136 L (137-145) mmol/L Potassium 5.2 H 5.5 H (3.5-5.1) mmol/L BUN 76 H (7-17) mg/dL Creatinine 1.96 H (0.52-1.04) mg/dL Glucose 106 H (74-99) mg/dL POC Glucose (mg/dL) 138 H (75-99) mg/dL Magnesium 2.5 H (1.6-2.3) mg/dL Total Bilirubin 3.1 H (0.2-1.3) mg/dL AST 45 H (14-36) U/L Alkaline Phosphatase 191 H (38-126) U/L Total Protein 5.9 L (6.3-8.2) g/dL Albumin 2.9 L (3.5-5.0) g/dL 02/06/18 Range/Units 16:50 WBC (3.8-10.6) k/uL Hct (34.0-46.0) % MCV (80.0-100.0) fL RDW (11.5-15.5) % Plt Count (150-450) k/uL Neutrophils # (1.3-7.7) k/uL Lymphocytes # (1.0-4.8) k/uL PT (9.0-12.0) sec INR (<1.2) Sodium (137-145) mmol/L Potassium (3.5-5.1) mmol/L BUN (7-17) mg/dL Creatinine (0.52-1.04) mg/dL Glucose (74-99) mg/dL POC Glucose (mg/dL) 116 H (75-99) mg/dL Magnesium (1.6-2.3) mg/dL Total Bilirubin (0.2-1.3) mg/dL AST (14-36) U/L Alkaline Phosphatase (38-126) U/L Total Protein (6.3-8.2) g/dL Albumin (3.5-5.0) g/dL - Imaging and Cardiology Chest x-ray: report reviewed Assessment and Plan Plan: Assessment Mental status changes secondary to metabolic encephalopathy sepsis from urinary tract infection Elevated bilirubin secondary to cholelithiasis Atrial fibrillation with RVR Hypertension Acute renal failure possibly prerenal Hyponatremia Hyperkalemia Coumadin coagulopathy History of congestive heart failure COPD History of CVA with right-sided hemiparesis expressive aphasia Gait dysfunction GERD Post ERCP with stone retrieval Gallstones with dilated gallbladder bladder History of aortic stenosis Pulmonary hypertension Lower extremity cellulitis Hypotension Obesity with BMI of 40.2 Plan Continue consultation with Dr. Perez cardiology pulmonology Gastroenterology Dr. Cazares
--- NOTE | 2018-02-06 17:53 | US ---
EXAMINATION TYPE: US venous doppler duplex LE DATE OF EXAM: 02/06/2018 4:56 PM COMPARISON: CLINICAL HISTORY: r/o DVT. Poor historian SIDE PERFORMED: Bilateral TECHNIQUE: The lower extremity deep venous system is examined utilizing real time linear array sonog joaquin with graded compression, doppler sonography and color-flow sonography. VESSELS IMAGED: External Iliac Vein (EIV) Common Femoral Vein Deep Femoral Vein Greater Saphenous Vein * Femoral Vein Popliteal Vein Small Saphenous Vein * (* superficial vessels) Limited exam due superficial edema, patient discomfort and unable to move legs Right Leg: Negative for acute DVT. Unable to visualized proximal calf veins. Left Leg: Negative for acute DVT IMPRESSION: No evidence of deep venous thrombosis in both legs.
[2018-02-06 20:08] LABS: Glucose,Whole Blood 109 mg/dL (75-99)
[2018-02-07 05:37] LABS: Glucose,Whole Blood 150 mg/dL (75-99)
[2018-02-07] MEDS: INSULIN ASPART 100 UNIT/ML 1 ML 10 ML VIAL SQ SCH ×4 (06:12→20:33)
[2018-02-07] MEDS: LEVOTHYROXINE 25 MCG TAB PO SCH (06:12)
[2018-02-07] MEDS: PANTOPRAZOLE 40 MG TABLET PO SCH ×2 (06:12→17:47)
[2018-02-07 08:03] LABS: Albumin 2.8 g/dL (3.5-5.0); Calcium 9.3 mg/dL (8.4-10.2); Magnesium 2.4 mg/dL (1.6-2.3); Potassium 4.8 mmol/L (3.5-5.1); Total Bilirubin 2.6 mg/dL (0.2-1.3); Total Protein 5.8 g/dL (6.3-8.2)
[2018-02-07 08:05] LABS: Anisocytosis Slight; Basophils % (A) 0 %; Eosinophils # (A) 0.1 k/uL (0-0.7); Eosinophils % (A) 1 %; HGB 14.6 gm/dL (11.4-16.0); Hypochromasia Marked; Lymphocytes # (A) 0.9 k/uL (1.0-4.8); Lymphocytes % (A) 7 %; MCH 30.9 pg (25.0-35.0); MCHC 30.4 g/dL (31.0-37.0); MCV 101.8 fL (80.0-100.0); Macrocytosis Moderate; Mean Platelet Volume 7.7; Monocytes # (A) 0.9 k/uL (0-1.0); Monocytes % (A) 7 %; Neutrophils # (A) 11.9 k/uL (1.3-7.7); Neutrophils % (A) 85 %; Platelet Count 128 k/uL (150-450); RBC 4.72 m/uL (3.80-5.40); RDW 18.3 % (11.5-15.5)
[2018-02-07] MEDS: IPRATROPIUM-ALBUTEROL 3 ML NEB INHALATION SCH ×4 (08:41→20:09)
[2018-02-07 08:47] LABS: Polychromasia Present
[2018-02-07] MEDS: FUROSEMIDE 20 MG TAB PO SCH (09:37)
[2018-02-07] MEDS: METOPROLOL TARTRATE 50 MG TAB PO SCH (09:39)
[2018-02-07] MEDS: DILTIAZEM ORAL 30 MG TAB PO SCH ×3 (09:42→20:32)
[2018-02-07] MEDS: AMOXIC-POT CLAV 875-125MG 1 EACH TAB PO SCH ×2 (09:42→20:32)
[2018-02-07] MEDS: SODIUM BICARBONATE TAB 650 MG TAB PO SCH ×2 (09:42→20:32)
--- NOTE | 2018-02-07 10:58 | P.PN ---
Subjective Patient is seen in follow-up for acute kidney injury. Renal function better today with creatinine at 1.75. She is a Bermudez catheter in place and is nonoliguric. Oral intake is fair. No vomiting or diarrhea. Denies chest pain or shortness of breath. Currently maintained on Lasix 20 mg once daily. Chest x-ray suggestive of vascular congestion and pleural effusions. She did receive 1 dose of IV Lasix yesterday. Vital signs are stable. General: The patient appeared well nourished and normally developed. HEENT: Head exam is unremarkable. Neck is without jugular venous distension. LUNGS: Breath sounds decreased. HEART: Rate and Rhythm are regular. First and second heart sounds normal. No murmurs, rubs or gallops. ABDOMEN: Abdominal exam reveals normal bowel sounds. Non-tender and non- distended. No evidence of peritonitis. EXTREMITITES: 1+ edema. Objective - Vital Signs Vital signs: Vital Signs Temp 97.6 F 02/07/18 08:05 Pulse 88 02/07/18 08:48 Resp 18 02/07/18 08:05 BP 109/74 02/07/18 08:05 Pulse Ox 98 02/07/18 08:05 Intake & Output 02/06/18 02/07/18 02/07/18 18:59 06:59 18:59 Intake Total 659 10 240 Output Total 400 1000 Balance 259 -990 240 Weight 116.8 kg Intake: IV 10 .9 10 Intake, IV Titration 14 Amount Sodium Chloride 0.9% 500 14 ml @ 0 mls/hr IV .[employer] [facility] Rx#:[id number] Oral 645 240 Output: Urine 400 1000 Other: Voiding Method Indwelling Catheter Indwelling Catheter # Bowel Movements 0 - Labs CBC & Chem 7: 02/07/18 06:53 02/07/18 06:53 Labs: Abnormal Lab Results - Last 24 Hours (Table) 02/06/18 02/06/18 02/06/18 Range/Units 12:07 15:51 16:50 WBC (3.8-10.6) k/uL Hct (34.0-46.0) % MCV (80.0-100.0) fL MCHC (31.0-37.0) g/dL RDW (11.5-15.5) % Plt Count (150-450) k/uL Neutrophils # (1.3-7.7) k/uL Lymphocytes # (1.0-4.8) k/uL Potassium 5.5 H (3.5-5.1) mmol/L BUN (7-17) mg/dL Creatinine (0.52-1.04) mg/dL Glucose (74-99) mg/dL POC Glucose (mg/dL) 138 H 116 H (75-99) mg/dL Magnesium (1.6-2.3) mg/dL Total Bilirubin (0.2-1.3) mg/dL AST (14-36) U/L Alkaline Phosphatase (38-126) U/L Total Protein (6.3-8.2) g/dL Albumin (3.5-5.0) g/dL 02/06/18 02/07/18 02/07/18 Range/Units 20:07 05:35 06:53 WBC 14.0 H (3.8-10.6) k/uL Hct 48.0 H (34.0-46.0) % MCV 101.8 H (80.0-100.0) fL MCHC 30.4 L (31.0-37.0) g/dL RDW 18.3 H (11.5-15.5) % Plt Count 128 L (150-450) k/uL Neutrophils # 11.9 H (1.3-7.7) k/uL Lymphocytes # 0.9 L (1.0-4.8) k/uL Potassium (3.5-5.1) mmol/L BUN (7-17) mg/dL Creatinine (0.52-1.04) mg/dL Glucose (74-99) mg/dL POC Glucose (mg/dL) 109 H 150 H (75-99) mg/dL Magnesium (1.6-2.3) mg/dL Total Bilirubin (0.2-1.3) mg/dL AST (14-36) U/L Alkaline Phosphatase (38-126) U/L Total Protein (6.3-8.2) g/dL Albumin (3.5-5.0) g/dL 02/07/18 Range/Units 06:53 WBC (3.8-10.6) k/uL Hct (34.0-46.0) % MCV (80.0-100.0) fL MCHC (31.0-37.0) g/dL RDW (11.5-15.5) % Plt Count (150-450) k/uL Neutrophils # (1.3-7.7) k/uL Lymphocytes # (1.0-4.8) k/uL Potassium (3.5-5.1) mmol/L BUN 74 H (7-17) mg/dL Creatinine 1.75 H (0.52-1.04) mg/dL Glucose 116 H (74-99) mg/dL POC Glucose (mg/dL) (75-99) mg/dL Magnesium 2.4 H (1.6-2.3) mg/dL Total Bilirubin 2.6 H (0.2-1.3) mg/dL AST 40 H (14-36) U/L Alkaline Phosphatase 181 H (38-126) U/L Total Protein 5.8 L (6.3-8.2) g/dL Albumin 2.8 L (3.5-5.0) g/dL Assessment and Plan Plan: assessment: 1. Acute kidney injury secondary to ATN secondary to hypotension. Also component of urinary retention. Renal function better with creatinine at 1.75 today. 2. Hyperkalemia secondary to acute kidney injury and metabolic acidosis. This is also a hemolyzed sample. Better today. 3. Urinary retention status post Bermudez catheter placement. 4. Diabetes mellitus. 5. Lower extremity cellulitis. 6. Elevated liver enzymes and hyperbilirubinemia being followed by GI. She underwent ERCP this admission. 7. Atrial fibrillation. Rate controlled. 8. Metabolic acidosis secondary to acute kidney injury. Better. 9. Volume overload. Plan: I will increase Lasix to 40 mg orally once daily. Encourage oral intake. Maintain oral sodium bicarbonate. Repeat electrolytes in the morning.
[2018-02-07 11:26] LABS: Glucose,Whole Blood 229 mg/dL (75-99)
--- NOTE | 2018-02-07 12:14 | P.PN ---
Subjective Patient resting in bed responding better than yesterday. Patient is lifting left arm. Continues to notice discoloration of toes Pretzer nurses attention was addressed with Dr. Lomax Objective - Vital Signs Vital signs: Vital Signs Temp 97.6 F 02/07/18 08:05 Pulse 88 02/07/18 08:48 Resp 18 02/07/18 08:05 BP 109/74 02/07/18 08:05 Pulse Ox 98 02/07/18 08:05 Intake & Output 02/06/18 02/07/18 02/07/18 18:59 06:59 18:59 Intake Total 659 10 240 Output Total 400 1000 Balance 259 -990 240 Weight 116.8 kg 116.8 kg Intake: IV 10 .9 10 Intake, IV Titration 14 Amount Sodium Chloride 0.9% 500 14 ml @ 0 mls/hr IV .[employer] ONE Rx#:[id number] Oral 645 240 Output: Urine 400 1000 Other: Voiding Method Indwelling Catheter Indwelling Catheter # Bowel Movements 0 - Constitutional General appearance: Present: mild distress - EENT Eyes: Present: PERRLA Ears: bilateral: normal - Neck Neck: Present: normal ROM - Respiratory Respiratory: bilateral: diminished - Cardiovascular Rhythm: irregularly irregular Abnormal Heart Sounds: Present: systolic murmur - Gastrointestinal General gastrointestinal: Present: soft - Integumentary Integumentary Comment(s): Cellulitis right lower extremities feet discolored - Musculoskeletal Musculoskeletal: Present: generalized weakness, right sided weakness - Psychiatric Psychiatric Comment(s): A maher has expressive aphasia nodding appropriately to questions - Labs CBC & Chem 7: 02/07/18 06:53 02/07/18 06:53 Labs: Abnormal Lab Results - Last 24 Hours (Table) 02/06/18 02/06/18 02/06/18 Range/Units 15:51 16:50 20:07 WBC (3.8-10.6) k/uL Hct (34.0-46.0) % MCV (80.0-100.0) fL MCHC (31.0-37.0) g/dL RDW (11.5-15.5) % Plt Count (150-450) k/uL Neutrophils # (1.3-7.7) k/uL Lymphocytes # (1.0-4.8) k/uL Potassium 5.5 H (3.5-5.1) mmol/L BUN (7-17) mg/dL Creatinine (0.52-1.04) mg/dL Glucose (74-99) mg/dL POC Glucose (mg/dL) 116 H 109 H (75-99) mg/dL Magnesium (1.6-2.3) mg/dL Total Bilirubin (0.2-1.3) mg/dL AST (14-36) U/L Alkaline Phosphatase (38-126) U/L Total Protein (6.3-8.2) g/dL Albumin (3.5-5.0) g/dL 02/07/18 02/07/18 02/07/18 Range/Units 05:35 06:53 06:53 WBC 14.0 H (3.8-10.6) k/uL Hct 48.0 H (34.0-46.0) % MCV 101.8 H (80.0-100.0) fL MCHC 30.4 L (31.0-37.0) g/dL RDW 18.3 H (11.5-15.5) % Plt Count 128 L (150-450) k/uL Neutrophils # 11.9 H (1.3-7.7) k/uL Lymphocytes # 0.9 L (1.0-4.8) k/uL Potassium (3.5-5.1) mmol/L BUN 74 H (7-17) mg/dL Creatinine 1.75 H (0.52-1.04) mg/dL Glucose 116 H (74-99) mg/dL POC Glucose (mg/dL) 150 H (75-99) mg/dL Magnesium 2.4 H (1.6-2.3) mg/dL Total Bilirubin 2.6 H (0.2-1.3) mg/dL AST 40 H (14-36) U/L Alkaline Phosphatase 181 H (38-126) U/L Total Protein 5.8 L (6.3-8.2) g/dL Albumin 2.8 L (3.5-5.0) g/dL 02/07/18 Range/Units 11:20 WBC (3.8-10.6) k/uL Hct (34.0-46.0) % MCV (80.0-100.0) fL MCHC (31.0-37.0) g/dL RDW (11.5-15.5) % Plt Count (150-450) k/uL Neutrophils # (1.3-7.7) k/uL Lymphocytes # (1.0-4.8) k/uL Potassium (3.5-5.1) mmol/L BUN (7-17) mg/dL Creatinine (0.52-1.04) mg/dL Glucose (74-99) mg/dL POC Glucose (mg/dL) 229 H (75-99) mg/dL Magnesium (1.6-2.3) mg/dL Total Bilirubin (0.2-1.3) mg/dL AST (14-36) U/L Alkaline Phosphatase (38-126) U/L Total Protein (6.3-8.2) g/dL Albumin (3.5-5.0) g/dL Assessment and Plan Plan: Assessment Change in mental status acute metabolic encephalopathy secondary to sepsis from urinary tract infection Elevated bilirubin improved post-ERCP Atrial fibrillation with RVR Hypertension Acute renal failure with fluid overload metabolic acidosis improving Hyponatremia Hyperkalemia Coumadin coagulopathy History of congestive heart failure Chronic COPD History of CVA with right-sided hemiparesis expressive aphasia Gait dysfunction GERD Hyperlipidemia Gallstones removed with ERCP Aortic stenosis Pulmonary hypertension Obesity BMI 40.2 Hypotension Plan Continue with Dr. Perez for fluid management Continue consultation with cardiology and pulmonology Gastroenterology Condition guarded
[2018-02-07] MEDS: FOLIC ACID 1 MG TAB PO SCH (12:51)
[2018-02-07] MEDS: MULTIVITAMINS, THERA 1 EACH TAB PO SCH (12:51)
[2018-02-07] MEDS: THIAMINE 100 MG TAB PO SCH (12:51)
--- NOTE | 2018-02-07 14:02 | P.PN ---
Subjective Progress Note Date: 02/07/18 Principal diagnosis: Sepsis, septic shock secondary to cellulitis and UTI with enterococcus This is a 67-year-old female with history of prior right-sided CVA with expressive aphasia, COPD, chronic persistent atrial fibrillation, recurrent cellulitis of the right lower extremity, recurrent urinary tract infections, hypertension and hyperlipidemia. She was initially admitted on this occasion with hypoglycemia, Coumadin toxicity, acute kidney injury and altered mentation status. Currently receiving treatment for a UTI. Patient was seen today in follow-up on the telemetry unit, she continues to be somewhat lethargic but arouses to verbal stimuli. Denies any shortness of breath, pulse ox per nasal cannula at 2 L is 97%, she is afebrile, mildly tachycardic with a heart rate of 108, blood and urine cultures remain negative. White blood cell count 11.1, hemoglobin 13.8, INR 1.6 today. Sodium 135. BUN 49 and creatinine 1.2. LFTs are trending down. 02/06/2018 Patient seen and examined this morning, creatinine 1.9 today. Breathing is overall stable. Chest x-ray reveals vascular congestion and pleural effusions.blood pressure 110/70 with a heart rate in the 80s, 97% on 3 L of oxygen.INR today 2.4, potassium 5.2.continues to have generalized edema. On oral diuretics. 02/07/2018 Patient seen and examined this morning, much more awake today. Creatinine down to 1.7. Blood pressure 110/50 with a heart rate in the 80s, 96% on 2 L of oxygen. Objective - Vital Signs Vital signs: Vital Signs Temp 97.6 F 02/07/18 08:05 Pulse 82 02/07/18 11:35 Resp 16 02/07/18 11:35 BP 109/57 02/07/18 11:35 Pulse Ox 96 02/07/18 11:35 Intake & Output 02/06/18 02/07/18 02/07/18 18:59 06:59 18:59 Intake Total 659 10 360 Output Total 400 1000 500 Balance 259 -990 -140 Weight 116.8 kg 116.8 kg Intake: IV 10 .9 10 Intake, IV Titration 14 Amount Sodium Chloride 0.9% 500 14 ml @ 0 mls/hr IV .[employer] [facility] Rx#:[id number] Oral 645 360 Output: Urine 400 1000 500 Other: Voiding Method Indwelling Catheter Indwelling Catheter Indwelling Catheter # Bowel Movements 0 - Exam Physical Exam: Revealed a 67-year-old female, in no distress, aphasic.. Head: Atraumatic, normocephalic, moist mucous membranes noted. HEENT:[Neck is supple.] [No neck masses.] [No thyromegaly.] [No JVD.] PERRLA, EOMI, no icterus. Chest: [Diminished breath sounds at the bases, no crackles, no wheezes. Cardiac Exam: [Irregular irregular rhythm. Normal S1 and S2, no S3 gallop, no murmur.] Abdomen: [Soft, nontender, no megaly, no rebound, no guarding, normal bowel sounds.] Extremities: Chronic edema and discoloration of lower extremities noted bilaterally, related to chronic and recurrent cellulitis. No open wounds noted.bilateral dressings in place Neurological Exam: Expressive aphasia noted, right-sided hemiplegia is noted, more alert today. Lymphatics: No lymphadenopathy. Skin: Erythematous changes noted in both lower extremities as noted above. - Labs CBC & Chem 7: 02/07/18 06:53 02/07/18 06:53 Labs: Abnormal Lab Results - Last 24 Hours (Table) 02/06/18 02/06/18 02/06/18 Range/Units 15:51 16:50 20:07 WBC (3.8-10.6) k/uL Hct (34.0-46.0) % MCV (80.0-100.0) fL MCHC (31.0-37.0) g/dL RDW (11.5-15.5) % Plt Count (150-450) k/uL Neutrophils # (1.3-7.7) k/uL Lymphocytes # (1.0-4.8) k/uL Potassium 5.5 H (3.5-5.1) mmol/L BUN (7-17) mg/dL Creatinine (0.52-1.04) mg/dL Glucose (74-99) mg/dL POC Glucose (mg/dL) 116 H 109 H (75-99) mg/dL Magnesium (1.6-2.3) mg/dL Total Bilirubin (0.2-1.3) mg/dL AST (14-36) U/L Alkaline Phosphatase (38-126) U/L Total Protein (6.3-8.2) g/dL Albumin (3.5-5.0) g/dL 02/07/18 02/07/18 02/07/18 Range/Units 05:35 06:53 06:53 WBC 14.0 H (3.8-10.6) k/uL Hct 48.0 H (34.0-46.0) % MCV 101.8 H (80.0-100.0) fL MCHC 30.4 L (31.0-37.0) g/dL RDW 18.3 H (11.5-15.5) % Plt Count 128 L (150-450) k/uL Neutrophils # 11.9 H (1.3-7.7) k/uL Lymphocytes # 0.9 L (1.0-4.8) k/uL Potassium (3.5-5.1) mmol/L BUN 74 H (7-17) mg/dL Creatinine 1.75 H (0.52-1.04) mg/dL Glucose 116 H (74-99) mg/dL POC Glucose (mg/dL) 150 H (75-99) mg/dL Magnesium 2.4 H (1.6-2.3) mg/dL Total Bilirubin 2.6 H (0.2-1.3) mg/dL AST 40 H (14-36) U/L Alkaline Phosphatase 181 H (38-126) U/L Total Protein 5.8 L (6.3-8.2) g/dL Albumin 2.8 L (3.5-5.0) g/dL 02/07/18 Range/Units 11:20 WBC (3.8-10.6) k/uL Hct (34.0-46.0) % MCV (80.0-100.0) fL MCHC (31.0-37.0) g/dL RDW (11.5-15.5) % Plt Count (150-450) k/uL Neutrophils # (1.3-7.7) k/uL Lymphocytes # (1.0-4.8) k/uL Potassium (3.5-5.1) mmol/L BUN (7-17) mg/dL Creatinine (0.52-1.04) mg/dL Glucose (74-99) mg/dL POC Glucose (mg/dL) 229 H (75-99) mg/dL Magnesium (1.6-2.3) mg/dL Total Bilirubin (0.2-1.3) mg/dL AST (14-36) U/L Alkaline Phosphatase (38-126) U/L Total Protein (6.3-8.2) g/dL Albumin (3.5-5.0) g/dL Assessment and Plan Plan: Assessment and plan: #1 Acute sepsis and septic shock, could be secondary to urinary tract infection or could also be related to cellulitis. #2 acute Coumadin toxicity #3 acute hepatitis, etiology is not clear, we will continue to monitor liver enzymes. #4 acute kidney injury, improving most likely secondary to ATN secondary to sepsis and hypotension. #5 chronic atrial fibrillation #6 History of CVA, with right-sided hemiplegia and expressive aphasia #7. Essential hypertension #8 recurrent urinary tract infection with enterococcus #9 diabetes, with episode of hypoglycemia on admission. Treated and resolved. #10 chronic obstructive pulmonary disease Plan From cardiology's perspective, we'll continue current medications. Continue to monitor kidney function and electrolytes. DNP note has been reviewed, I agree with a documented findings and plan of care. Patient was seen and examined.
[2018-02-07 17:42] LABS: INR 2.3 (<1.2); Prothrombin Time 21.1 sec (9.0-12.0)
[2018-02-07] MEDS: WARFARIN 2 MG TAB PO SCH (17:47)
[2018-02-07 17:57] LABS: Glucose,Whole Blood 134 mg/dL (75-99)
[2018-02-07 20:27] LABS: Glucose,Whole Blood 152 mg/dL (75-99)
[2018-02-08] MEDS: PANTOPRAZOLE 40 MG TABLET PO SCH ×2 (06:05→20:25)
[2018-02-08] MEDS: LEVOTHYROXINE 25 MCG TAB PO SCH (06:05)
[2018-02-08] MEDS: INSULIN ASPART 100 UNIT/ML 1 ML 10 ML VIAL SQ SCH ×4 (06:05→21:57)
[2018-02-08 06:12] LABS: Glucose,Whole Blood 180 mg/dL (75-99)
[2018-02-08 06:26] LABS: Anisocytosis Slight; Basophils % (A) 0 %; Eosinophils # (A) 0.2 k/uL (0-0.7); Eosinophils % (A) 1 %; HCT 46.6 % (34.0-46.0); HGB 13.7 gm/dL (11.4-16.0); Hypochromasia Marked; Lymphocytes # (A) 0.6 k/uL (1.0-4.8); Lymphocytes % (A) 3 %; MCH 29.7 pg (25.0-35.0); MCHC 29.4 g/dL (31.0-37.0); MCV 101.1 fL (80.0-100.0); Macrocytosis Moderate; Mean Platelet Volume 7.5; Monocytes # (A) 0.9 k/uL (0-1.0); Monocytes % (A) 5 %; Neutrophils # (A) 14.7 k/uL (1.3-7.7); Neutrophils % (A) 90 %; Platelet Count 126 k/uL (150-450); RBC 4.61 m/uL (3.80-5.40); RDW 18.2 % (11.5-15.5); WBC 16.4 k/uL (3.8-10.6)
[2018-02-08 06:43] LABS: Albumin 2.9 g/dL (3.5-5.0); Calcium 9.4 mg/dL (8.4-10.2); Potassium 4.5 mmol/L (3.5-5.1); Total Bilirubin 2.2 mg/dL (0.2-1.3); Total Protein 5.7 g/dL (6.3-8.2)
[2018-02-08] MEDS: IPRATROPIUM-ALBUTEROL 3 ML NEB INHALATION SCH ×4 (07:16→20:29)
[2018-02-08 09:36] LABS: INR 2.1 (<1.2); Prothrombin Time 19.3 sec (9.0-12.0)
[2018-02-08] MEDS: METOPROLOL TARTRATE 50 MG TAB PO SCH (09:36)
[2018-02-08] MEDS: AMOXIC-POT CLAV 875-125MG 1 EACH TAB PO SCH ×2 (09:36→21:57)
[2018-02-08] MEDS: SODIUM BICARBONATE TAB 650 MG TAB PO SCH (09:37)
[2018-02-08] MEDS: DILTIAZEM ORAL 30 MG TAB PO SCH ×3 (09:37→21:57)
[2018-02-08] MEDS: FUROSEMIDE 40 MG TAB PO SCH (09:37)
[2018-02-08 12:07] LABS: Glucose,Whole Blood 154 mg/dL (75-99)
[2018-02-08] MEDS: FOLIC ACID 1 MG TAB PO SCH (13:17)
[2018-02-08] MEDS: THIAMINE 100 MG TAB PO SCH (13:17)
[2018-02-08] MEDS: MULTIVITAMINS, THERA 1 EACH TAB PO SCH (13:17)
[2018-02-08] MEDS ORDERED: FUROSEMIDE 10 MG/ML 4 ML VIAL IV STA (13:59)
--- NOTE | 2018-02-08 14:00 | P.PN ---
Subjective Patient is seen in follow-up for acute kidney injury. Renal function better today with creatinine at 1.42. She is a Bermudez catheter in place and is nonoliguric. Oral intake is fair. No vomiting or diarrhea. Denies chest pain or shortness of breath. Currently maintained on Lasix 40 mg once daily. She is eager to go home. Vital signs are stable. General: The patient appeared well nourished and normally developed. HEENT: Head exam is unremarkable. Neck is without jugular venous distension. LUNGS: Breath sounds decreased. HEART: Rate and Rhythm are regular. First and second heart sounds normal. No murmurs, rubs or gallops. ABDOMEN: Abdominal exam reveals normal bowel sounds. Non-tender and non- distended. No evidence of peritonitis. EXTREMITITES: 1+ edema. Objective - Vital Signs Vital signs: Vital Signs Temp 97.5 F L 02/08/18 08:00 Pulse 99 02/08/18 11:09 Resp 18 02/08/18 11:09 BP 144/71 02/08/18 08:00 Pulse Ox 95 02/08/18 08:00 Intake & Output 02/07/18 02/08/18 02/08/18 18:59 06:59 18:59 Intake Total 480 10 730 Output Total 500 700 600 Balance -20 -690 130 Weight 116.8 kg 1115.5 kg Intake: IV 10 .9 10 Oral 480 730 Output: Urine 500 700 600 Other: Voiding Method Indwelling Catheter Indwelling Catheter # Bowel Movements 0 - Labs CBC & Chem 7: 02/08/18 05:52 02/08/18 05:52 Labs: Abnormal Lab Results - Last 24 Hours (Table) 02/07/18 02/07/18 02/07/18 Range/Units 16:50 17:55 20:26 WBC (3.8-10.6) k/uL Hct (34.0-46.0) % MCV (80.0-100.0) fL MCHC (31.0-37.0) g/dL RDW (11.5-15.5) % Plt Count (150-450) k/uL Neutrophils # (1.3-7.7) k/uL Lymphocytes # (1.0-4.8) k/uL PT 21.1 H (9.0-12.0) sec INR 2.3 H (<1.2) Sodium (137-145) mmol/L BUN (7-17) mg/dL Creatinine (0.52-1.04) mg/dL Glucose (74-99) mg/dL POC Glucose (mg/dL) 134 H 152 H (75-99) mg/dL Total Bilirubin (0.2-1.3) mg/dL Alkaline Phosphatase (38-126) U/L Total Protein (6.3-8.2) g/dL Albumin (3.5-5.0) g/dL 02/08/18 02/08/18 02/08/18 Range/Units 05:52 05:52 06:01 WBC 16.4 H (3.8-10.6) k/uL Hct 46.6 H (34.0-46.0) % MCV 101.1 H (80.0-100.0) fL MCHC 29.4 L (31.0-37.0) g/dL RDW 18.2 H (11.5-15.5) % Plt Count 126 L (150-450) k/uL Neutrophils # 14.7 H (1.3-7.7) k/uL Lymphocytes # 0.6 L (1.0-4.8) k/uL PT (9.0-12.0) sec INR (<1.2) Sodium 135 L (137-145) mmol/L BUN 69 H (7-17) mg/dL Creatinine 1.42 H (0.52-1.04) mg/dL Glucose 158 H (74-99) mg/dL POC Glucose (mg/dL) 180 H (75-99) mg/dL Total Bilirubin 2.2 H (0.2-1.3) mg/dL Alkaline Phosphatase 224 H (38-126) U/L Total Protein 5.7 L (6.3-8.2) g/dL Albumin 2.9 L (3.5-5.0) g/dL 02/08/18 02/08/18 Range/Units 09:13 11:45 WBC (3.8-10.6) k/uL Hct (34.0-46.0) % MCV (80.0-100.0) fL MCHC (31.0-37.0) g/dL RDW (11.5-15.5) % Plt Count (150-450) k/uL Neutrophils # (1.3-7.7) k/uL Lymphocytes # (1.0-4.8) k/uL PT 19.3 H (9.0-12.0) sec INR 2.1 H (<1.2) Sodium (137-145) mmol/L BUN (7-17) mg/dL Creatinine (0.52-1.04) mg/dL Glucose (74-99) mg/dL POC Glucose (mg/dL) 154 H (75-99) mg/dL Total Bilirubin (0.2-1.3) mg/dL Alkaline Phosphatase (38-126) U/L Total Protein (6.3-8.2) g/dL Albumin (3.5-5.0) g/dL Assessment and Plan Plan: assessment: 1. Acute kidney injury secondary to ATN secondary to hypotension. Also component of urinary retention. Renal function better with creatinine at 1.42 today. 2. Hyperkalemia secondary to acute kidney injury and metabolic acidosis. This is also a hemolyzed sample. Better today. 3. Urinary retention status post Bermudez catheter placement. 4. Diabetes mellitus. 5. Lower extremity cellulitis. 6. Elevated liver enzymes and hyperbilirubinemia being followed by GI. She underwent ERCP this admission. 7. Atrial fibrillation. Rate controlled. 8. Metabolic acidosis secondary to acute kidney injury. Better. 9. Volume overload. Improving. Plan: Maintain Lasix 40 mg orally once daily. I will give her an additional dose of Lasix 40 mg IV once today. Encourage oral intake. Decrease dose of bicarb once daily. Repeat electrolytes in the morning.
--- NOTE | 2018-02-08 15:07 | P.PN ---
Subjective Progress Note Date: 02/08/18 Principal diagnosis: Sepsis, septic shock secondary to cellulitis and UTI with enterococcus This is a 67-year-old female with history of prior right-sided CVA with expressive aphasia, COPD, chronic persistent atrial fibrillation, recurrent cellulitis of the right lower extremity, recurrent urinary tract infections, hypertension and hyperlipidemia. She was initially admitted on this occasion with hypoglycemia, Coumadin toxicity, acute kidney injury and altered mentation status. Currently receiving treatment for a UTI. Patient was seen today in follow-up on the telemetry unit, she continues to be somewhat lethargic but arouses to verbal stimuli. Denies any shortness of breath, pulse ox per nasal cannula at 2 L is 97%, she is afebrile, mildly tachycardic with a heart rate of 108, blood and urine cultures remain negative. White blood cell count 11.1, hemoglobin 13.8, INR 1.6 today. Sodium 135. BUN 49 and creatinine 1.2. LFTs are trending down. 02/06/2018 Patient seen and examined this morning, creatinine 1.9 today. Breathing is overall stable. Chest x-ray reveals vascular congestion and pleural effusions.blood pressure 110/70 with a heart rate in the 80s, 97% on 3 L of oxygen.INR today 2.4, potassium 5.2.continues to have generalized edema. On oral diuretics. 02/07/2018 Patient seen and examined this morning, much more awake today. Creatinine down to 1.7. Blood pressure 110/50 with a heart rate in the 80s, 96% on 2 L of oxygen. 02/08/2018 Patient much more alert today, creatinine down to 1.4.blood pressure 144/70 with a heart rate in the 70s.arterial duplex of the bilateral lower extremities has been performed today, no report available yet. Objective - Vital Signs Vital signs: Vital Signs Temp 97.5 F L 02/08/18 08:00 Pulse 99 02/08/18 11:09 Resp 18 02/08/18 11:09 BP 144/71 02/08/18 08:00 Pulse Ox 95 02/08/18 08:00 Intake & Output 02/07/18 02/08/18 02/08/18 18:59 06:59 18:59 Intake Total 685 64 9999 Output Total 292 849 9620 Balance -20 -690 -10 Weight 116.8 kg 1115.5 kg 115.5 kg Intake: IV 10 .9 10 Oral 480 1090 Output: Urine 799 512 9044 Other: Voiding Method Indwelling Catheter Indwelling Catheter # Bowel Movements 0 - Exam Physical Exam: Revealed a 67-year-old female, in no distress, aphasic.. Head: Atraumatic, normocephalic, moist mucous membranes noted. HEENT:[Neck is supple.] [No neck masses.] [No thyromegaly.] [No JVD.] PERRLA, EOMI, no icterus. Chest: [Diminished breath sounds at the bases, no crackles, no wheezes. Cardiac Exam: [Irregular irregular rhythm. Normal S1 and S2, no S3 gallop, no murmur.] Abdomen: [Soft, nontender, no megaly, no rebound, no guarding, normal bowel sounds.] Extremities: Chronic edema and discoloration of lower extremities noted bilaterally, related to chronic and recurrent cellulitis. No open wounds noted.bilateral dressings in place, bilateral toes cool to touch Neurological Exam: Expressive aphasia noted, right-sided hemiplegia is noted, more alert today. Lymphatics: No lymphadenopathy. Skin: Erythematous changes noted in both lower extremities as noted above. - Labs CBC & Chem 7: 02/08/18 05:52 02/08/18 05:52 Labs: Abnormal Lab Results - Last 24 Hours (Table) 02/07/18 02/07/18 02/07/18 Range/Units 16:50 17:55 20:26 WBC (3.8-10.6) k/uL Hct (34.0-46.0) % MCV (80.0-100.0) fL MCHC (31.0-37.0) g/dL RDW (11.5-15.5) % Plt Count (150-450) k/uL Neutrophils # (1.3-7.7) k/uL Lymphocytes # (1.0-4.8) k/uL PT 21.1 H (9.0-12.0) sec INR 2.3 H (<1.2) Sodium (137-145) mmol/L BUN (7-17) mg/dL Creatinine (0.52-1.04) mg/dL Glucose (74-99) mg/dL POC Glucose (mg/dL) 134 H 152 H (75-99) mg/dL Total Bilirubin (0.2-1.3) mg/dL Alkaline Phosphatase (38-126) U/L Total Protein (6.3-8.2) g/dL Albumin (3.5-5.0) g/dL 02/08/18 02/08/18 02/08/18 Range/Units 05:52 05:52 06:01 WBC 16.4 H (3.8-10.6) k/uL Hct 46.6 H (34.0-46.0) % MCV 101.1 H (80.0-100.0) fL MCHC 29.4 L (31.0-37.0) g/dL RDW 18.2 H (11.5-15.5) % Plt Count 126 L (150-450) k/uL Neutrophils # 14.7 H (1.3-7.7) k/uL Lymphocytes # 0.6 L (1.0-4.8) k/uL PT (9.0-12.0) sec INR (<1.2) Sodium 135 L (137-145) mmol/L BUN 69 H (7-17) mg/dL Creatinine 1.42 H (0.52-1.04) mg/dL Glucose 158 H (74-99) mg/dL POC Glucose (mg/dL) 180 H (75-99) mg/dL Total Bilirubin 2.2 H (0.2-1.3) mg/dL Alkaline Phosphatase 224 H (38-126) U/L Total Protein 5.7 L (6.3-8.2) g/dL Albumin 2.9 L (3.5-5.0) g/dL 02/08/18 02/08/18 Range/Units 09:13 11:45 WBC (3.8-10.6) k/uL Hct (34.0-46.0) % MCV (80.0-100.0) fL MCHC (31.0-37.0) g/dL RDW (11.5-15.5) % Plt Count (150-450) k/uL Neutrophils # (1.3-7.7) k/uL Lymphocytes # (1.0-4.8) k/uL PT 19.3 H (9.0-12.0) sec INR 2.1 H (<1.2) Sodium (137-145) mmol/L BUN (7-17) mg/dL Creatinine (0.52-1.04) mg/dL Glucose (74-99) mg/dL POC Glucose (mg/dL) 154 H (75-99) mg/dL Total Bilirubin (0.2-1.3) mg/dL Alkaline Phosphatase (38-126) U/L Total Protein (6.3-8.2) g/dL Albumin (3.5-5.0) g/dL Assessment and Plan Plan: Assessment and plan: #1 Acute sepsis and septic shock, could be secondary to urinary tract infection or could also be related to cellulitis. #2 acute Coumadin toxicity #3 acute hepatitis, etiology is not clear, we will continue to monitor liver enzymes. #4 acute kidney injury, improving most likely secondary to ATN secondary to sepsis and hypotension. #5 chronic atrial fibrillation #6 History of CVA, with right-sided hemiplegia and expressive aphasia #7. Essential hypertension #8 recurrent urinary tract infection with enterococcus #9 diabetes, with episode of hypoglycemia on admission. Treated and resolved. #10 chronic obstructive pulmonary disease Plan From cardiology's perspective, we'll continue current medications. Continue to monitor kidney function and electrolytes. We will obtain an arterial duplex of bilateral lower extremities. DNP note has been reviewed, I agree with a documented findings and plan of care. Patient was seen and examined.
[2018-02-08 16:56] LABS: Glucose,Whole Blood 234 mg/dL (75-99)
--- NOTE | 2018-02-08 19:31 | PN ---
PROGRESS NOTE DATE OF SERVICE: 02/08/2018 I am covering for Dr. Lancaster. This 67-year-old woman who was admitted with multiple medical problems, also had bilateral leg cyanosis, also. The patient was also being closely monitored. The patient had change in mental status. ECF rehab is also currently being contemplated. PAST MEDICAL HISTORY: Reviewed. REVIEW OF SYSTEM: CARDIOVASCULAR: No angina. RESPIRATORY: As mentioned. GI: No nausea. : No dysuria. NERVOUS SYSTEM: Diffusely weak. CURRENT MEDICATIONS: Reviewed and include: 1. DuoNeb q.i.d. and p.r.n. 2. Augmentin 875 mg p.o. b.i.d. 3. Cardizem 90 mg t.i.d. 4. Folic acid 1 mg. 5. Lasix 40 mg daily. 6. Dilaudid 0.5 mg q.6 pain. 7. NovoLog scale. 8. Synthroid. 9. Lopressor 50 mg p.o. b.i.d. PHYSICAL EXAM: Patient is alert, oriented x2. Pulse 90, blood pressure 120/58, respirations 16, temperature 97.4, pulse ox 98% on 2 L. HEENT: Conjunctivae normal. Oral mucosa moist. Neck is obese. CARDIOVASCULAR: S1, S2 RESPIRATORY: Breath sounds diminished in the bases. A few scattered rhonchi and crackles. ABDOMEN: Soft, nontender. LEGS: Bilateral leg edema, erythema, cyanosis. NERVOUS SYSTEM: No focal deficits. LAB STUDIES: WBC 16.5. INR is 2.1. Creatinine is 1.4. Sodium 135. ASSESSMENT: 1. Change in mental status acute metabolic encephalopathy secondary to sepsis and urinary tract infection. 2. Elevated bilirubin, improved post ERCP. 3. Atrial fibrillation with rapid ventricular rate. 4. Hypertension. 5. Acute renal failure with fluid overload, metabolic acidosis. 6. Hyponatremia. 7. Hyperkalemia. 8. Coumadin coagulopathy. 9. History of congestive heart failure. 10.History of chronic obstructive pulmonary disease. 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 12.Gait dysfunction. 13.Gastroesophageal reflux disease. 14.Hyperlipidemia. 15.Gallstones removed with ERCP. 16.Aortic stenosis. 17.Pulmonary hypertension. 18.Obesity with body mass index of 40.2. 19.Hypotension. RECOMMENDATIONS AND DISCUSSION: I recommend to continue current management and symptomatic treatment. Otherwise at this time, possible ECF rehab. Otherwise, continue the current medications. See orders. Repeat labs. Further recommendations to follow. MMPHOENIXL / IJN: [id number] /
[2018-02-08] MEDS: WARFARIN 2 MG TAB PO SCH (20:25)
[2018-02-08 22:04] LABS: Glucose,Whole Blood 194 mg/dL (75-99)
[2018-02-09] MEDS: LEVOTHYROXINE 25 MCG TAB PO SCH (06:45)
[2018-02-09] MEDS: INSULIN ASPART 100 UNIT/ML 1 ML 10 ML VIAL SQ SCH ×4 (06:45→21:07)
[2018-02-09] MEDS: PANTOPRAZOLE 40 MG TABLET PO SCH ×2 (06:45→17:47)
[2018-02-09 06:46] LABS: Glucose,Whole Blood 149 mg/dL (75-99)
[2018-02-09 07:00] LABS: INR 1.9 (<1.2); Prothrombin Time 17.3 sec (9.0-12.0)
[2018-02-09 07:01] LABS: Anisocytosis Slight; Basophils % (A) 0 %; Eosinophils # (A) 0.1 k/uL (0-0.7); Eosinophils % (A) 0 %; HCT 44.8 % (34.0-46.0); HGB 13.5 gm/dL (11.4-16.0); Hypochromasia Marked; Lymphocytes # (A) 0.5 k/uL (1.0-4.8); Lymphocytes % (A) 3 %; MCH 30.2 pg (25.0-35.0); MCHC 30.2 g/dL (31.0-37.0); MCV 99.9 fL (80.0-100.0); Macrocytosis Slight; Mean Platelet Volume 7.8; Monocytes # (A) 0.7 k/uL (0-1.0); Monocytes % (A) 4 %; Neutrophils % (A) 91 %; Platelet Count 123 k/uL (150-450); RBC 4.48 m/uL (3.80-5.40); WBC 16.6 k/uL (3.8-10.6)
[2018-02-09 07:10] LABS: Albumin 2.8 g/dL (3.5-5.0); Calcium 9.7 mg/dL (8.4-10.2); Potassium 4.3 mmol/L (3.5-5.1); Total Bilirubin 2.5 mg/dL (0.2-1.3); Total Protein 5.6 g/dL (6.3-8.2)
[2018-02-09] MEDS: IPRATROPIUM-ALBUTEROL 3 ML NEB INHALATION SCH ×4 (07:57→20:05)
[2018-02-09] MEDS ORDERED: SODIUM BICARBONATE TAB 650 MG TAB PO SCH (09:00)
[2018-02-09] MEDS: DILTIAZEM ORAL 30 MG TAB PO SCH ×3 (10:20→22:43)
[2018-02-09] MEDS: METOPROLOL TARTRATE 50 MG TAB PO SCH ×2 (10:20→21:07)
[2018-02-09] MEDS: AMOXIC-POT CLAV 875-125MG 1 EACH TAB PO SCH ×2 (10:20→21:07)
[2018-02-09] MEDS: FOLIC ACID 1 MG TAB PO SCH (10:20)
[2018-02-09] MEDS: FUROSEMIDE 40 MG TAB PO SCH (10:21)
--- NOTE | 2018-02-09 10:51 | P.PN ---
Subjective Patient is seen in follow-up for acute kidney injury. Renal function stable with creatinine at 1.42. She is a Bermudez catheter in place and is nonoliguric. Oral intake is fair. No vomiting or diarrhea. Denies chest pain or shortness of breath. Currently maintained on Lasix 40 mg once daily. She is eager to go home. Vital signs are stable. General: The patient appeared well nourished and normally developed. HEENT: Head exam is unremarkable. Neck is without jugular venous distension. LUNGS: Breath sounds decreased. HEART: Rate and Rhythm are regular. First and second heart sounds normal. No murmurs, rubs or gallops. ABDOMEN: Abdominal exam reveals normal bowel sounds. Non-tender and non- distended. No evidence of peritonitis. EXTREMITITES: 1+ edema. Objective - Vital Signs Vital signs: Vital Signs Temp 97.8 F 02/09/18 03:35 Pulse 102 H 02/09/18 08:09 Resp 18 02/09/18 04:00 BP 130/77 02/09/18 03:35 Pulse Ox 95 02/09/18 03:35 Intake & Output 02/08/18 02/09/18 02/09/18 18:59 06:59 18:59 Intake Total 1090 300 Output Total 1200 80 Balance -110 220 Weight 115.5 kg Intake: Oral 1090 300 Output: Urine 1200 80 Uretheral (Bermudez) 100 80 Other: Voiding Method Indwelling Catheter Indwelling Catheter # Bowel Movements 0 - Labs CBC & Chem 7: 02/09/18 05:57 02/09/18 05:57 Labs: Abnormal Lab Results - Last 24 Hours (Table) 02/08/18 02/08/18 02/08/18 Range/Units 11:45 16:22 21:52 WBC (3.8-10.6) k/uL MCHC (31.0-37.0) g/dL RDW (11.5-15.5) % Plt Count (150-450) k/uL Neutrophils # (1.3-7.7) k/uL Lymphocytes # (1.0-4.8) k/uL PT (9.0-12.0) sec INR (<1.2) Carbon Dioxide (22-30) mmol/L BUN (7-17) mg/dL Creatinine (0.52-1.04) mg/dL Glucose (74-99) mg/dL POC Glucose (mg/dL) 154 H 234 H 194 H (75-99) mg/dL Total Bilirubin (0.2-1.3) mg/dL Alkaline Phosphatase (38-126) U/L Total Protein (6.3-8.2) g/dL Albumin (3.5-5.0) g/dL 02/09/18 02/09/18 02/09/18 Range/Units 05:57 05:57 05:57 WBC 16.6 H (3.8-10.6) k/uL MCHC 30.2 L (31.0-37.0) g/dL RDW 18.0 H (11.5-15.5) % Plt Count 123 L (150-450) k/uL Neutrophils # 15.0 H (1.3-7.7) k/uL Lymphocytes # 0.5 L (1.0-4.8) k/uL PT 17.3 H (9.0-12.0) sec INR 1.9 H (<1.2) Carbon Dioxide 31 H (22-30) mmol/L BUN 59 H (7-17) mg/dL Creatinine 1.42 H (0.52-1.04) mg/dL Glucose 140 H (74-99) mg/dL POC Glucose (mg/dL) (75-99) mg/dL Total Bilirubin 2.5 H (0.2-1.3) mg/dL Alkaline Phosphatase 222 H (38-126) U/L Total Protein 5.6 L (6.3-8.2) g/dL Albumin 2.8 L (3.5-5.0) g/dL 02/09/18 Range/Units 06:44 WBC (3.8-10.6) k/uL MCHC (31.0-37.0) g/dL RDW (11.5-15.5) % Plt Count (150-450) k/uL Neutrophils # (1.3-7.7) k/uL Lymphocytes # (1.0-4.8) k/uL PT (9.0-12.0) sec INR (<1.2) Carbon Dioxide (22-30) mmol/L BUN (7-17) mg/dL Creatinine (0.52-1.04) mg/dL Glucose (74-99) mg/dL POC Glucose (mg/dL) 149 H (75-99) mg/dL Total Bilirubin (0.2-1.3) mg/dL Alkaline Phosphatase (38-126) U/L Total Protein (6.3-8.2) g/dL Albumin (3.5-5.0) g/dL Assessment and Plan Plan: assessment: 1. Acute kidney injury secondary to ATN secondary to hypotension. Also component of urinary retention. Renal function stable with creatinine at 1.42 today. 2. Hyperkalemia secondary to acute kidney injury and metabolic acidosis. This is also a hemolyzed sample. Better today. 3. Urinary retention status post Bermudez catheter placement. 4. Diabetes mellitus. 5. Lower extremity cellulitis. 6. Elevated liver enzymes and hyperbilirubinemia being followed by GI. She underwent ERCP this admission. 7. Atrial fibrillation. Rate controlled. 8. Metabolic acidosis secondary to acute kidney injury. Resolved. 9. Volume overload. Improving. Plan: Maintain Lasix 40 mg orally once daily. I will repeat an additional dose of Lasix 40 mg IV once today. Encourage oral intake. Discontinue sodium bicarbonate. Repeat electrolytes in the morning.
[2018-02-09] MEDS ORDERED: FUROSEMIDE 10 MG/ML 4 ML VIAL IV STA (10:52)
--- NOTE | 2018-02-09 10:52 | P.PN ---
Subjective Progress Note Date: 02/09/18 Principal diagnosis: Chronic A. fib This is a 67-year-old female with history of prior right-sided CVA with expressive aphasia, COPD, chronic persistent atrial fibrillation, recurrent cellulitis of the right lower extremity, recurrent urinary tract infections, hypertension and hyperlipidemia. She was initially admitted on this occasion with hypoglycemia, Coumadin toxicity, acute kidney injury and altered mentation status. Currently receiving treatment for a UTI. I'll follow -up with the patient today On follow-up with the patient today, February [id number], the patient is feeling better. Denies having any chest pain or chest discomfort. No dizziness or lightheadedness. She continues to be seen by the nephrology service as well. She is in atrial flutter/fibrillation with relatively controlled heart rate. The blood pressure is also relatively controlled. Objective - Vital Signs Vital signs: Vital Signs Temp 97.8 F 02/09/18 03:35 Pulse 102 H 02/09/18 08:09 Resp 18 02/09/18 04:00 BP 130/77 02/09/18 03:35 Pulse Ox 95 02/09/18 03:35 Intake & Output 02/08/18 02/09/18 02/09/18 18:59 06:59 18:59 Intake Total 1090 300 Output Total 1200 80 Balance -110 220 Weight 115.5 kg Intake: Oral 1090 300 Output: Urine 1200 80 Uretheral (Bermudez) 100 80 Other: Voiding Method Indwelling Catheter Indwelling Catheter # Bowel Movements 0 - Constitutional General appearance: Present: no acute distress - Respiratory Respiratory: bilateral: CTA - Cardiovascular Rhythm: irregularly irregular Heart sounds: normal: S1, S2 - Labs CBC & Chem 7: 02/09/18 05:57 02/09/18 05:57 Labs: Abnormal Lab Results - Last 24 Hours (Table) 02/08/18 02/08/18 02/08/18 Range/Units 11:45 16:22 21:52 WBC (3.8-10.6) k/uL MCHC (31.0-37.0) g/dL RDW (11.5-15.5) % Plt Count (150-450) k/uL Neutrophils # (1.3-7.7) k/uL Lymphocytes # (1.0-4.8) k/uL PT (9.0-12.0) sec INR (<1.2) Carbon Dioxide (22-30) mmol/L BUN (7-17) mg/dL Creatinine (0.52-1.04) mg/dL Glucose (74-99) mg/dL POC Glucose (mg/dL) 154 H 234 H 194 H (75-99) mg/dL Total Bilirubin (0.2-1.3) mg/dL Alkaline Phosphatase (38-126) U/L Total Protein (6.3-8.2) g/dL Albumin (3.5-5.0) g/dL 02/09/18 02/09/18 02/09/18 Range/Units 05:57 05:57 05:57 WBC 16.6 H (3.8-10.6) k/uL MCHC 30.2 L (31.0-37.0) g/dL RDW 18.0 H (11.5-15.5) % Plt Count 123 L (150-450) k/uL Neutrophils # 15.0 H (1.3-7.7) k/uL Lymphocytes # 0.5 L (1.0-4.8) k/uL PT 17.3 H (9.0-12.0) sec INR 1.9 H (<1.2) Carbon Dioxide 31 H (22-30) mmol/L BUN 59 H (7-17) mg/dL Creatinine 1.42 H (0.52-1.04) mg/dL Glucose 140 H (74-99) mg/dL POC Glucose (mg/dL) (75-99) mg/dL Total Bilirubin 2.5 H (0.2-1.3) mg/dL Alkaline Phosphatase 222 H (38-126) U/L Total Protein 5.6 L (6.3-8.2) g/dL Albumin 2.8 L (3.5-5.0) g/dL 02/09/18 Range/Units 06:44 WBC (3.8-10.6) k/uL MCHC (31.0-37.0) g/dL RDW (11.5-15.5) % Plt Count (150-450) k/uL Neutrophils # (1.3-7.7) k/uL Lymphocytes # (1.0-4.8) k/uL PT (9.0-12.0) sec INR (<1.2) Carbon Dioxide (22-30) mmol/L BUN (7-17) mg/dL Creatinine (0.52-1.04) mg/dL Glucose (74-99) mg/dL POC Glucose (mg/dL) 149 H (75-99) mg/dL Total Bilirubin (0.2-1.3) mg/dL Alkaline Phosphatase (38-126) U/L Total Protein (6.3-8.2) g/dL Albumin (3.5-5.0) g/dL Assessment and Plan Assessment: Assessment Chronic atrial fibrillation was relatively controlled heart rate History of CVA with expressive aphasia Multiple comorbid conditions Generalized edema Renal failure Plan Continue the current dose of Cardizem by mouth Continue oral anticoagulation with Coumadin Continue the current dose of Lasix by mouth Monitor the kidney function and electrolytes Follow-up with the patient
[2018-02-09 12:10] LABS: Glucose,Whole Blood 155 mg/dL (75-99)
[2018-02-09] MEDS: THIAMINE 100 MG TAB PO SCH (12:10)
[2018-02-09] MEDS: MULTIVITAMINS, THERA 1 EACH TAB PO SCH (12:10)
[2018-02-09 17:13] LABS: Glucose,Whole Blood 169 mg/dL (75-99)
[2018-02-09] MEDS: WARFARIN 2 MG TAB PO SCH (17:47)
[2018-02-09 20:16] LABS: Glucose,Whole Blood 170 mg/dL (75-99)
--- NOTE | 2018-02-09 22:07 | PN ---
PROGRESS NOTE DATE OF SERVICE: 02/09/2018 I am covering for Dr. Lancaster. This 67-year-old woman who was admitted with multiple medical problems including change in mental status. The patient is being worked up for ECF rehab. No chest pain. No palpitations. No fever. The creatinine is 1.42 at this time. Total bilirubin is 2.5. No chest pain. No palpitation. EXAM: Alert and oriented x2. Pulse 91, blood pressure 93/50, respiration 18, temperature 97.2, pulse ox 97% on 2 L. HEENT: Conjunctivae normal. Oral mucosa moist. NECK: No jugular venous distention. CARDIOVASCULAR: S1, S2 muffled. RESPIRATORY: Breath sounds diminished in the bases. A few scattered rhonchi and crackles. Abdomen is soft, obese, nontender. Legs are no edema. No swelling. CENTRAL NERVOUS SYSTEM: Diffusely weak. LABS: Noted. Creatinine 1.42. ASSESSMENT: 1. Change in mental status acute metabolic encephalopathy secondary to sepsis and urinary tract infection. 2. Elevated bilirubin, status post ERCP. 3. Atrial fibrillation with rapid ventricular rate. 4. Hypertension. 5. Acute renal failure with fluid overload, metabolic acidosis. 6. Hyponatremia. 7. Hyperkalemia. 8. Coumadin coagulopathy. 9. History of congestive heart failure. 10.Chronic obstructive pulmonary disease. 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 12.Gait dysfunction. 13.Gastroesophageal reflux disease. 14.Hyperlipidemia. 15.Gallstones removed with the ERCP. 16.Aortic stenosis. 17.Pulmonary hypertension. 18.Obesity with body mass of 40.2. 19.Hypotension. RECOMMENDATIONS AND DISCUSSION: Recommend to continue current medications, management and symptomatic treatment. Otherwise PT/OT evaluation, possible ECF rehab. Dr. Lancaster will follow on Sunday. Further recommendations to follow. MMODL / IJN: [id number] /
[2018-02-10 03:12] VITALS: RESP 18
[2018-02-10] MEDS: PANTOPRAZOLE 40 MG TABLET PO SCH ×2 (05:57→17:38)
[2018-02-10] MEDS: LEVOTHYROXINE 25 MCG TAB PO SCH (05:57)
[2018-02-10 06:40] LABS: Glucose,Whole Blood 197 mg/dL (75-99)
[2018-02-10] MEDS: INSULIN ASPART 100 UNIT/ML 1 ML 10 ML VIAL SQ SCH ×4 (06:51→21:41)
[2018-02-10 08:00] LABS: Anisocytosis Slight; Basophils % (A) 0 %; Eosinophils # (A) 0.1 k/uL (0-0.7); Eosinophils % (A) 1 %; HCT 44.5 % (34.0-46.0); HGB 13.5 gm/dL (11.4-16.0); Hypochromasia Marked; Lymphocytes # (A) 0.5 k/uL (1.0-4.8); Lymphocytes % (A) 3 %; MCH 30.8 pg (25.0-35.0); MCHC 30.4 g/dL (31.0-37.0); MCV 101.5 fL (80.0-100.0); Macrocytosis Moderate; Mean Platelet Volume 7.5; Monocytes # (A) 0.6 k/uL (0-1.0); Monocytes % (A) 4 %; Neutrophils # (A) 14.4 k/uL (1.3-7.7); Neutrophils % (A) 91 %; Platelet Count 129 k/uL (150-450); RBC 4.39 m/uL (3.80-5.40); RDW 18.1 % (11.5-15.5); WBC 15.9 k/uL (3.8-10.6)
[2018-02-10 08:14] LABS: Albumin 2.9 g/dL (3.5-5.0); Calcium 9.4 mg/dL (8.4-10.2); Potassium 4.2 mmol/L (3.5-5.1); Total Bilirubin 2.3 mg/dL (0.2-1.3); Total Protein 5.9 g/dL (6.3-8.2)
[2018-02-10] MEDS: IPRATROPIUM-ALBUTEROL 3 ML NEB INHALATION SCH ×5 (08:23→20:03)
[2018-02-10] MEDS: FUROSEMIDE 40 MG TAB PO SCH (08:51)
[2018-02-10] MEDS: DILTIAZEM ORAL 30 MG TAB PO SCH ×3 (08:51→21:42)
[2018-02-10] MEDS: AMOXIC-POT CLAV 875-125MG 1 EACH TAB PO SCH ×2 (08:51→21:41)
[2018-02-10] MEDS: METOPROLOL TARTRATE 50 MG TAB PO SCH ×2 (08:52→21:41)
--- NOTE | 2018-02-10 10:35 | P.PN ---
Subjective Progress Note Date: 02/10/18 Principal diagnosis: Chronic A. fib This is a 67-year-old female with history of prior right-sided CVA with expressive aphasia, COPD, chronic persistent atrial fibrillation, recurrent cellulitis of the right lower extremity, recurrent urinary tract infections, hypertension and hyperlipidemia. She was initially admitted on this occasion with hypoglycemia, Coumadin toxicity, acute kidney injury and altered mentation status. Currently receiving treatment for a UTI. I'll follow -up with the patient today On follow-up with the patient today, February [id number], the patient is feeling better. Denies having any chest pain or chest discomfort. No dizziness or lightheadedness. She continues to be seen by the nephrology service as well. The blood pressure and heart rate are better controlled after we increased the dose of Cardizem by mouth yesterday. Objective - Vital Signs Vital signs: Vital Signs Temp 98.2 F 02/10/18 08:00 Pulse 84 02/10/18 08:36 Resp 18 02/10/18 08:00 BP 123/81 02/10/18 08:00 Pulse Ox 98 02/10/18 08:00 Intake & Output 02/09/18 02/10/18 02/10/18 18:59 06:59 18:59 Intake Total 900 240 Output Total 1550 Balance 900 -1550 240 Weight 118 kg Intake: IV 20 20 .9 20 20 Oral 880 220 Output: Urine 1550 Other: Voiding Method Indwelling Catheter Indwelling Catheter Indwelling Catheter # Bowel Movements 0 - Constitutional General appearance: Present: no acute distress - Respiratory Respiratory: bilateral: diminished - Cardiovascular Rhythm: irregularly irregular Heart sounds: normal: S1, S2 Abnormal Heart Sounds: Present: systolic murmur - Labs CBC & Chem 7: 02/10/18 07:23 02/10/18 07:23 Labs: Abnormal Lab Results - Last 24 Hours (Table) 02/09/18 02/09/18 02/09/18 Range/Units 12:08 17:06 20:15 WBC (3.8-10.6) k/uL MCV (80.0-100.0) fL MCHC (31.0-37.0) g/dL RDW (11.5-15.5) % Plt Count (150-450) k/uL Neutrophils # (1.3-7.7) k/uL Lymphocytes # (1.0-4.8) k/uL Sodium (137-145) mmol/L BUN (7-17) mg/dL Creatinine (0.52-1.04) mg/dL Glucose (74-99) mg/dL POC Glucose (mg/dL) 155 H 169 H 170 H (75-99) mg/dL Total Bilirubin (0.2-1.3) mg/dL Alkaline Phosphatase (38-126) U/L Total Protein (6.3-8.2) g/dL Albumin (3.5-5.0) g/dL 02/10/18 02/10/18 02/10/18 Range/Units 06:39 07:23 07:23 WBC 15.9 H (3.8-10.6) k/uL MCV 101.5 H (80.0-100.0) fL MCHC 30.4 L (31.0-37.0) g/dL RDW 18.1 H (11.5-15.5) % Plt Count 129 L (150-450) k/uL Neutrophils # 14.4 H (1.3-7.7) k/uL Lymphocytes # 0.5 L (1.0-4.8) k/uL Sodium 136 L (137-145) mmol/L BUN 61 H (7-17) mg/dL Creatinine 1.24 H (0.52-1.04) mg/dL Glucose 152 H (74-99) mg/dL POC Glucose (mg/dL) 197 H (75-99) mg/dL Total Bilirubin 2.3 H (0.2-1.3) mg/dL Alkaline Phosphatase 227 H (38-126) U/L Total Protein 5.9 L (6.3-8.2) g/dL Albumin 2.9 L (3.5-5.0) g/dL Assessment and Plan Assessment: Assessment Chronic atrial fibrillation was relatively controlled heart rate History of CVA with expressive aphasia Multiple comorbid conditions Generalized edema Renal failure Plan Continue the current dose of Cardizem by mouth Continue oral anticoagulation with Coumadin Continue the current dose of Lasix by mouth Monitor the kidney function and electrolytes Follow-up with the patient
[2018-02-10] MEDS: THIAMINE 100 MG TAB PO SCH (11:01)
[2018-02-10] MEDS: MULTIVITAMINS, THERA 1 EACH TAB PO SCH (11:01)
[2018-02-10] MEDS: FOLIC ACID 1 MG TAB PO SCH (11:01)
--- NOTE | 2018-02-10 11:08 | P.PN ---
Subjective Patient is seen in follow-up for acute kidney injury. Renal function better with creatinine at 1.24 today. She is a Bermudez catheter in place and is nonoliguric. Oral intake is fair. No vomiting or diarrhea. Denies chest pain or shortness of breath. Currently maintained on Lasix 40 mg once daily. She is eager to go home. Vital signs are stable. General: The patient appeared well nourished and normally developed. HEENT: Head exam is unremarkable. Neck is without jugular venous distension. LUNGS: Breath sounds decreased. HEART: Rate and Rhythm are regular. First and second heart sounds normal. No murmurs, rubs or gallops. ABDOMEN: Abdominal exam reveals normal bowel sounds. Non-tender and non- distended. No evidence of peritonitis. EXTREMITITES: 1+ edema. Objective - Vital Signs Vital signs: Vital Signs Temp 98.2 F 02/10/18 08:00 Pulse 84 02/10/18 08:36 Resp 18 02/10/18 08:00 BP 123/81 02/10/18 08:00 Pulse Ox 98 02/10/18 08:00 Intake & Output 02/09/18 02/10/18 02/10/18 18:59 06:59 18:59 Intake Total 900 240 Output Total 1550 Balance 900 -1550 240 Weight 118 kg Intake: IV 20 20 .9 20 20 Oral 880 220 Output: Urine 1550 Other: Voiding Method Indwelling Catheter Indwelling Catheter Indwelling Catheter # Bowel Movements 0 - Labs CBC & Chem 7: 02/10/18 07:23 02/10/18 07:23 Labs: Abnormal Lab Results - Last 24 Hours (Table) 02/09/18 02/09/18 02/09/18 Range/Units 12:08 17:06 20:15 WBC (3.8-10.6) k/uL MCV (80.0-100.0) fL MCHC (31.0-37.0) g/dL RDW (11.5-15.5) % Plt Count (150-450) k/uL Neutrophils # (1.3-7.7) k/uL Lymphocytes # (1.0-4.8) k/uL Sodium (137-145) mmol/L BUN (7-17) mg/dL Creatinine (0.52-1.04) mg/dL Glucose (74-99) mg/dL POC Glucose (mg/dL) 155 H 169 H 170 H (75-99) mg/dL Total Bilirubin (0.2-1.3) mg/dL Alkaline Phosphatase (38-126) U/L Total Protein (6.3-8.2) g/dL Albumin (3.5-5.0) g/dL 02/10/18 02/10/18 02/10/18 Range/Units 06:39 07:23 07:23 WBC 15.9 H (3.8-10.6) k/uL MCV 101.5 H (80.0-100.0) fL MCHC 30.4 L (31.0-37.0) g/dL RDW 18.1 H (11.5-15.5) % Plt Count 129 L (150-450) k/uL Neutrophils # 14.4 H (1.3-7.7) k/uL Lymphocytes # 0.5 L (1.0-4.8) k/uL Sodium 136 L (137-145) mmol/L BUN 61 H (7-17) mg/dL Creatinine 1.24 H (0.52-1.04) mg/dL Glucose 152 H (74-99) mg/dL POC Glucose (mg/dL) 197 H (75-99) mg/dL Total Bilirubin 2.3 H (0.2-1.3) mg/dL Alkaline Phosphatase 227 H (38-126) U/L Total Protein 5.9 L (6.3-8.2) g/dL Albumin 2.9 L (3.5-5.0) g/dL Assessment and Plan Plan: assessment: 1. Acute kidney injury secondary to ATN secondary to hypotension. Also component of urinary retention. Renal function better with creatinine at 1.24 today. 2. Hyperkalemia secondary to acute kidney injury and metabolic acidosis. This is also a hemolyzed sample. Better today. 3. Urinary retention status post Bermudez catheter placement. 4. Diabetes mellitus. 5. Lower extremity cellulitis. 6. Elevated liver enzymes and hyperbilirubinemia being followed by GI. She underwent ERCP this admission. 7. Atrial fibrillation. Rate controlled. 8. Metabolic acidosis secondary to acute kidney injury. Resolved. 9. Volume overload. Improving. Plan: Maintain Lasix 40 mg orally once daily. I will repeat an additional dose of Lasix 40 mg IV once today. Encourage oral intake. Discontinued sodium bicarbonate. Repeat electrolytes in the morning.
[2018-02-10 11:58] LABS: Glucose,Whole Blood 153 mg/dL (75-99)
[2018-02-10] MEDS ORDERED: FUROSEMIDE 10 MG/ML 4 ML VIAL IV ONE (15:00)
[2018-02-10 17:08] LABS: Glucose,Whole Blood 173 mg/dL (75-99)
[2018-02-10] MEDS: WARFARIN 2 MG TAB PO SCH (17:38)
[2018-02-10] MEDS ORDERED: IPRATROPIUM-ALBUTEROL 3 ML NEB INHALATION PRN (19:37)
[2018-02-10] MEDS ORDERED: IPRATROPIUM-ALBUTEROL 3 ML NEB INHALATION SCH (20:00)
--- NOTE | 2018-02-10 20:42 | PN ---
PROGRESS NOTE DATE OF SERVICE: 02/11/2008 I am covering for Dr. Lancaster. This 67-year-old woman was admitted with metabolic encephalopathy is slightly more coherent today. The patient still has some shortness of breath. No chest pain. No palpitations. No fever. EXAM: Pulse is 82, blood pressure 105/60, respiration 18. Temperature 97.6, pulse ox 94% on 2 L. HEENT is conjunctivae normal. Oral mucosa moist. Neck is no jugular venous distention. No carotid bruit. No lymph node enlargement. Cardiovascular system: S1, S2 muffled. Respiratory: Breath sounds diminished in the bases. Bilateral scattered rhonchi and crackles. Abdomen is soft. Obese. Nontender. LEGS: No edema. No swelling. Central nervous system: Diffusely weak. LAB STUDIES: At this time shows WBC 15.2, hemoglobin 13.2, sodium 136 and INR 1.24. ASSESSMENT: 1. Change in mental status acute metabolic acidosis secondary to sepsis and urinary tract infection. 2. Elevated bilirubin, status post ERCP. 3. Atrial fibrillation with rapid ventricular rate. 4. Hypertension. 5. Acute renal failure, fluid overload, metabolic acidosis. 6. Hyponatremia. 7. Hyperkalemia. 8. Coumadin coagulopathy. 9. History of congestive heart failure. 10.History of chronic obstructive pulmonary disease. 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 12.Gait dysfunction. 13.Gastroesophageal reflux disease. 14.Hyperlipidemia. 15.Gallstones removed with ERCP. 16.Aortic stenosis. 17.History of pulmonary hypertension. 18.Obesity with body mass index 40.6. 19.Hypotension. RECOMMENDATIONS AND DISCUSSION: Recommend to continue current medications, continue symptomatic treatment. Otherwise, continue the rest of medications. PT/OT evaluation, possible ECF rehab. Dr. Lancaster will follow. Prognosis guarded. MMODL / IJN: [id number] /
[2018-02-10 21:21] LABS: Glucose,Whole Blood 188 mg/dL (75-99)
[2018-02-11] MEDS: HYDROmorphone 2 MG TAB PO PRN (00:14)
[2018-02-11 05:47] LABS: Glucose,Whole Blood 197 mg/dL (75-99)
[2018-02-11] MEDS: LEVOTHYROXINE 25 MCG TAB PO SCH (06:20)
[2018-02-11] MEDS: PANTOPRAZOLE 40 MG TABLET PO SCH (06:20)
[2018-02-11] MEDS: INSULIN ASPART 100 UNIT/ML 1 ML 10 ML VIAL SQ SCH ×2 (06:21→11:43)
[2018-02-11 07:05] LABS: Anisocytosis Slight; Basophils % (A) 0 %; Eosinophils # (A) 0.1 k/uL (0-0.7); Eosinophils % (A) 1 %; HCT 45.9 % (34.0-46.0); HGB 13.2 gm/dL (11.4-16.0); Hypochromasia Marked; Lymphocytes # (A) 0.6 k/uL (1.0-4.8); Lymphocytes % (A) 4 %; MCH 29.9 pg (25.0-35.0); MCHC 28.9 g/dL (31.0-37.0); MCV 103.4 fL (80.0-100.0); Macrocytosis Moderate; Mean Platelet Volume 7.7; Monocytes # (A) 0.8 k/uL (0-1.0); Monocytes % (A) 5 %; Neutrophils # (A) 13.6 k/uL (1.3-7.7); Neutrophils % (A) 89 %; Platelet Count 139 k/uL (150-450); RBC 4.43 m/uL (3.80-5.40); RDW 18.1 % (11.5-15.5); WBC 15.3 k/uL (3.8-10.6)
[2018-02-11 07:16] LABS: Albumin 2.9 g/dL (3.5-5.0); Calcium 9.5 mg/dL (8.4-10.2); Magnesium 2.1 mg/dL (1.6-2.3); Potassium 4.7 mmol/L (3.5-5.1); Total Bilirubin 1.9 mg/dL (0.2-1.3); Total Protein 5.8 g/dL (6.3-8.2)
[2018-02-11] MEDS: IPRATROPIUM-ALBUTEROL 3 ML NEB INHALATION SCH ×3 (08:12→16:23)
[2018-02-11] MEDS: DILTIAZEM ORAL 30 MG TAB PO SCH ×2 (08:18→15:28)
[2018-02-11] MEDS: METOPROLOL TARTRATE 50 MG TAB PO SCH (08:18)
[2018-02-11] MEDS: THIAMINE 100 MG TAB PO SCH (08:18)
[2018-02-11] MEDS: MULTIVITAMINS, THERA 1 EACH TAB PO SCH (08:18)
[2018-02-11] MEDS: AMOXIC-POT CLAV 875-125MG 1 EACH TAB PO SCH (08:18)
[2018-02-11] MEDS: FOLIC ACID 1 MG TAB PO SCH (08:18)
[2018-02-11] MEDS ORDERED: FUROSEMIDE 10 MG/ML 4 ML VIAL IV SCH (09:00)
[2018-02-11 09:38] VITALS: BMI 40.2
--- NOTE | 2018-02-11 09:58 | P.PN ---
Subjective Progress Note Date: 02/11/18 Principal diagnosis: Chronic A. fib This is a 67-year-old female with history of prior right-sided CVA with expressive aphasia, COPD, chronic persistent atrial fibrillation, recurrent cellulitis of the right lower extremity, recurrent urinary tract infections, hypertension and hyperlipidemia. She was initially admitted on this occasion with hypoglycemia, Coumadin toxicity, acute kidney injury and altered mentation status. Currently receiving treatment for a UTI. I'll follow -up with the patient today On follow-up with the patient today, February [id number], the patient is feeling better. Denies having any chest pain or chest discomfort. No dizziness or lightheadedness. She continues to be seen by the nephrology service as well. The blood pressure and heart rate are better controlled after we increased the dose of Cardizem by mouth yesterday. Objective - Vital Signs Vital signs: Vital Signs Temp 96.2 F L 02/11/18 08:00 Pulse 76 02/11/18 08:23 Resp 18 02/11/18 08:00 BP 112/57 02/11/18 08:00 Pulse Ox 97 02/11/18 08:14 Intake & Output 02/10/18 02/11/18 02/11/18 18:59 06:59 18:59 Intake Total 860 120 237 Output Total 550 Balance 860 -430 237 Weight 116.5 kg 116.5 kg Intake: IV 40 .9 40 Oral 820 120 237 Output: Urine 550 Other: Voiding Method Indwelling Catheter Indwelling Catheter Indwelling Catheter # Voids 1 # Bowel Movements 1 - Constitutional General appearance: Present: no acute distress - Respiratory Respiratory: bilateral: diminished - Cardiovascular Rhythm: irregularly irregular Heart sounds: normal: S1, S2 Abnormal Heart Sounds: Present: systolic murmur - Labs CBC & Chem 7: 02/11/18 06:24 02/11/18 06:24 Labs: Abnormal Lab Results - Last 24 Hours (Table) 02/10/18 02/10/18 02/10/18 Range/Units 11:55 16:57 21:19 WBC (3.8-10.6) k/uL MCV (80.0-100.0) fL MCHC (31.0-37.0) g/dL RDW (11.5-15.5) % Plt Count (150-450) k/uL Neutrophils # (1.3-7.7) k/uL Lymphocytes # (1.0-4.8) k/uL Sodium (137-145) mmol/L BUN (7-17) mg/dL Creatinine (0.52-1.04) mg/dL Glucose (74-99) mg/dL POC Glucose (mg/dL) 153 H 173 H 188 H (75-99) mg/dL Total Bilirubin (0.2-1.3) mg/dL AST (14-36) U/L Alkaline Phosphatase (38-126) U/L Total Protein (6.3-8.2) g/dL Albumin (3.5-5.0) g/dL 02/11/18 02/11/18 02/11/18 Range/Units 05:46 06:24 06:24 WBC 15.3 H (3.8-10.6) k/uL MCV 103.4 H (80.0-100.0) fL MCHC 28.9 L (31.0-37.0) g/dL RDW 18.1 H (11.5-15.5) % Plt Count 139 L (150-450) k/uL Neutrophils # 13.6 H (1.3-7.7) k/uL Lymphocytes # 0.6 L (1.0-4.8) k/uL Sodium 135 L (137-145) mmol/L BUN 61 H (7-17) mg/dL Creatinine 1.27 H (0.52-1.04) mg/dL Glucose 188 H (74-99) mg/dL POC Glucose (mg/dL) 197 H (75-99) mg/dL Total Bilirubin 1.9 H (0.2-1.3) mg/dL AST 39 H (14-36) U/L Alkaline Phosphatase 223 H (38-126) U/L Total Protein 5.8 L (6.3-8.2) g/dL Albumin 2.9 L (3.5-5.0) g/dL Assessment and Plan Assessment: Assessment Chronic atrial fibrillation was relatively controlled heart rate History of CVA with expressive aphasia Multiple comorbid conditions Generalized edema Renal failure Plan Continue the current dose of Cardizem by mouth Continue oral anticoagulation with Coumadin Continue the current dose of Lasix Monitor the kidney function and electrolytes Follow-up with the patient
--- NOTE | 2018-02-11 10:37 | P.PN ---
Subjective Patient is seen in follow-up for acute kidney injury. Renal function stable. She is a Bermudez catheter in place and is nonoliguric. Oral intake is fair. No vomiting or diarrhea. Denies chest pain or shortness of breath. Currently maintained on Lasix 40 mg once daily. She is eager to go home. Vital signs are stable. General: The patient appeared well nourished and normally developed. HEENT: Head exam is unremarkable. Neck is without jugular venous distension. LUNGS: Breath sounds decreased. HEART: Rate and Rhythm are regular. First and second heart sounds normal. No murmurs, rubs or gallops. ABDOMEN: Abdominal exam reveals normal bowel sounds. Non-tender and non- distended. No evidence of peritonitis. EXTREMITITES: 1+ edema. Objective - Vital Signs Vital signs: Vital Signs Temp 96.2 F L 02/11/18 08:00 Pulse 76 02/11/18 08:23 Resp 18 02/11/18 08:00 BP 112/57 02/11/18 08:00 Pulse Ox 97 02/11/18 08:14 Intake & Output 02/10/18 02/11/18 02/11/18 18:59 06:59 18:59 Intake Total 860 120 237 Output Total 550 Balance 860 -430 237 Weight 116.5 kg 116.5 kg Intake: IV 40 .9 40 Oral 820 120 237 Output: Urine 550 Other: Voiding Method Indwelling Catheter Indwelling Catheter Indwelling Catheter # Voids 1 # Bowel Movements 1 - Labs CBC & Chem 7: 02/11/18 06:24 02/11/18 06:24 Labs: Abnormal Lab Results - Last 24 Hours (Table) 02/10/18 02/10/18 02/10/18 Range/Units 11:55 16:57 21:19 WBC (3.8-10.6) k/uL MCV (80.0-100.0) fL MCHC (31.0-37.0) g/dL RDW (11.5-15.5) % Plt Count (150-450) k/uL Neutrophils # (1.3-7.7) k/uL Lymphocytes # (1.0-4.8) k/uL Sodium (137-145) mmol/L BUN (7-17) mg/dL Creatinine (0.52-1.04) mg/dL Glucose (74-99) mg/dL POC Glucose (mg/dL) 153 H 173 H 188 H (75-99) mg/dL Total Bilirubin (0.2-1.3) mg/dL AST (14-36) U/L Alkaline Phosphatase (38-126) U/L Total Protein (6.3-8.2) g/dL Albumin (3.5-5.0) g/dL 02/11/18 02/11/18 02/11/18 Range/Units 05:46 06:24 06:24 WBC 15.3 H (3.8-10.6) k/uL MCV 103.4 H (80.0-100.0) fL MCHC 28.9 L (31.0-37.0) g/dL RDW 18.1 H (11.5-15.5) % Plt Count 139 L (150-450) k/uL Neutrophils # 13.6 H (1.3-7.7) k/uL Lymphocytes # 0.6 L (1.0-4.8) k/uL Sodium 135 L (137-145) mmol/L BUN 61 H (7-17) mg/dL Creatinine 1.27 H (0.52-1.04) mg/dL Glucose 188 H (74-99) mg/dL POC Glucose (mg/dL) 197 H (75-99) mg/dL Total Bilirubin 1.9 H (0.2-1.3) mg/dL AST 39 H (14-36) U/L Alkaline Phosphatase 223 H (38-126) U/L Total Protein 5.8 L (6.3-8.2) g/dL Albumin 2.9 L (3.5-5.0) g/dL Assessment and Plan Plan: assessment: 1. Acute kidney injury secondary to ATN secondary to hypotension. Also component of urinary retention. Renal function better with creatinine at 1.27 today. 2. Hyperkalemia secondary to acute kidney injury and metabolic acidosis. This is also a hemolyzed sample. Better today. 3. Urinary retention status post Bermudez catheter placement. 4. Diabetes mellitus. 5. Lower extremity cellulitis. 6. Elevated liver enzymes and hyperbilirubinemia being followed by GI. She underwent ERCP this admission. 7. Atrial fibrillation. Rate controlled. 8. Metabolic acidosis secondary to acute kidney injury. Resolved. 9. Volume overload. Improving. Plan: I will change Lasix to 40 mg orally in the morning and 20 mg in the evening. Encourage oral intake. Discontinued sodium bicarbonate. Anticipate discharge soon. Repeat basic metabolic panel in 2-3 days post- discharge and follow up outpatient in the next 1-2 weeks.
[2018-02-11 11:10] LABS: Glucose,Whole Blood 256 mg/dL (75-99)
--- NOTE | 2018-02-11 13:26 | P.DS ---
Providers Date of admission: 01/26/18 20:34 Expected date of discharge: 02/11/18 Attending physician: Du Lancaster Consults: 01/26/18 20:36 Consult Physician Routine Consulting Provider: Emilie Rivera Consult Reason/Comments: Acute renal sufficiency Do you want consulting provider notified?: Yes Consult Physician Urgent Consulting Provider: Ale Serrano Consult Reason/Comments: Cardiac evaluation Do you want consulting provider notified?: Yes 01/27/18 05:55 Consult Physician Urgent Consulting Provider: Coleman Troy Consult Reason/Comments: ICU management Do you want consulting provider notified?: Yes 01/27/18 13:42 Consult Physician Routine Consulting Provider: Gianna Astudillo Consult Reason/Comments: gallstones in ct of abdomen Do you want consulting provider notified?: Yes 01/28/18 10:49 Consult Physician Routine Consulting Provider: Jorge Cazares Consult Reason/Comments: swelling and redness in lower right extremety Do you want consulting provider notified?: Yes Primary care physician: Stated None Hospital Course: 67-year-old female was admitted through the emergency room to the intensive care with hypotension sepsis elevated bilirubin. Patient was evaluated by cardiology Dr. Troy for critical-care patients the infectious disease and nephrology for acute renal failure. Patient was stabilized. Patient had ERCP stones removed from, bile duct. Liver is stabilize. Patient had a mental status changes patient is baseline at this time. Patient continues with generalizes anasarca. Patient is to be transferred to extended care facility for rehab. Assessment mental status changes acute metabolic encephalopathy secondary to sepsis urinary tract infection and lower extremity cellulitis elevated bilirubin secondary to gallstones atrial fibrillation with RVR hypertension acute renal failure secondary to hypertension hyperkalemia hyponatremia history congestive heart failure COPD history of CVA with right-sided hemiparesis expressive aphasia gait dysfunction GERD hyperlipidemia fluid overload with metabolic acidosis improved gallstones dilated bladder history of aortic stenosis secondary pulmonary hypertension obesity BMI 40.2 hyportension Plan transferred to extended care facility for rehab patient will continue with Lasix Augmentin home medications Plan - Discharge Summary New Discharge Prescriptions: New Amoxic-Pot Clav 875-125Mg [Augmentin 875-125] 1 tab PO Q12HR #14 tablet Amoxic-Pot Clav 875-125Mg [Augmentin 875-125] 1 each PO Q12HR tab Diltiazem Oral [Cardizem*] 90 mg PO TID tab Folic Acid 1 mg PO DAILY@1200 tab Furosemide [Lasix] 20 mg PO DAILY@1600 tab Furosemide [Lasix] 40 mg PO QAM tab Insulin Aspart [NovoLOG (formulary)] 0 unit SQ ACHS vial Multivitamins, Thera [Multivitamin (formulary)] 1 each PO DAILY@1200 tab Pantoprazole [Protonix] 40 mg PO AC-BID tablet. Thiamine [Vitamin B-1] 100 mg PO DAILY@1200 tab Warfarin [Coumadin] 2 mg PO DAILY@1800 tab Continue Tiotropium [place] [Spiriva] 1 cap INHALATION RT-DAILY Levothyroxine Sodium [Synthroid] 25 mcg PO DAILY Acetaminophen Tab [Tylenol] 650 mg PO Q6HR PRN tab PRN Reason: Mild Pain Or Fever > 100.5 Metoprolol Tartrate [Lopressor] 25 mg PO HS #30 tab Insulin Detemir [Levemir] 20 unit SQ HS #1 syr Formoterol Fumarate [Perforomist] 20 mcg INHALATION RT-BID #60 nebu Ipratropium-Albuterol Nebulize [Duoneb 0.5 mg-3 mg/3 ml Soln] 3 ml INHALATION RT-QID #120 ampul.neb Budesonide [Pulmicort] 1 mg INHALATION RT-BID #60 nebu Lisinopril [Zestril] 2.5 mg PO DAILY #30 tab Discontinued Budesonide-Formot 160-4.5 Mcg [Symbicort 160-4.5 Mcg Inhaler] 2 puff INHALATION RT-BID #1 puff Furosemide [Lasix] 20 mg PO DAILY metFORMIN HCL [Glucophage] 500 mg PO DAILY Discharge Medication List Tiotropium [place] [Spiriva] 1 cap INHALATION RT-DAILY 05/01/17 [History] Levothyroxine Sodium [Synthroid] 25 mcg PO DAILY 12/18/17 [History] Acetaminophen Tab [Tylenol] 650 mg PO Q6HR PRN tab 12/23/17 [Rx] Metoprolol Tartrate [Lopressor] 25 mg PO HS #30 tab 12/23/17 [Rx] Budesonide [Pulmicort] 1 mg INHALATION RT-BID #60 nebu 01/03/18 [Rx] Formoterol Fumarate [Perforomist] 20 mcg INHALATION RT-BID #60 nebu 01/03/18 [Rx ] Insulin Detemir [Levemir] 20 unit SQ HS #1 syr 01/03/18 [Rx] Ipratropium-Albuterol Nebulize [Duoneb 0.5 mg-3 mg/3 ml Soln] 3 ml INHALATION RT -QID #120 ampul.neb 01/03/18 [Rx] Lisinopril [Zestril] 2.5 mg PO DAILY #30 tab 01/08/18 [Rx] Amoxic-Pot Clav 875-125Mg [Augmentin 875-125] 1 tab PO Q12HR #14 tablet [Rx] Amoxic-Pot Clav 875-125Mg [Augmentin 875-125] 1 each PO Q12HR tab 02/11/18 [Rx] Diltiazem Oral [Cardizem*] 90 mg PO TID tab 02/11/18 [Rx] Folic Acid 1 mg PO DAILY@1200 tab 02/11/18 [Rx] Furosemide [Lasix] 20 mg PO DAILY@1600 tab 02/11/18 [Rx] Furosemide [Lasix] 40 mg PO QAM tab 02/11/18 [Rx] Insulin Aspart [NovoLOG (formulary)] 0 unit SQ ACHS vial 02/11/18 [Rx] Multivitamins, Thera [Multivitamin (formulary)] 1 each PO DAILY@1200 tab [Rx] Pantoprazole [Protonix] 40 mg PO AC-BID tablet. 02/11/18 [Rx] Thiamine [Vitamin B-1] 100 mg PO DAILY@1200 tab 02/11/18 [Rx] Warfarin [Coumadin] 2 mg PO DAILY@1800 tab 02/11/18 [Rx] Follow up Appointment(s)/Referral(s): None,Stated [Primary Care Provider] - 1-2 days [facility], [NON-STAFF] - As Needed Activity/Diet/Wound Care/Special Instructions: Arterial duplex scan pending Discharge Disposition: TRANSFER TO SNF/ECF
[2018-02-11] MEDS ORDERED: FUROSEMIDE 20 MG TAB PO SCH (16:00)
[2018-02-11 16:01] VITALS: BP 94/62; TEMP 97.3
[2018-02-11 16:38] VITALS: PULSE 80
[2018-02-12] MEDS ORDERED: FUROSEMIDE 40 MG TAB PO SCH (09:00)
== END 2018-02-11 17:22 | DRG 871 ==
LOC: EC 18:20 → 6SEL 20:34 → 6ICU 01-27 06:08 → 6SEL 01-29 14:26 → 3SCARD 02-03 09:53 → 6SEL 02-03 09:53 → 3SCARD 02-04 15:57
PROVIDERS: ADMIT Family Medicine; ATTEND Family Medicine
PROC: 0FC98ZZ Extirpation of Matter from Common Bile Duct, Via Natural or Artificial Opening Endoscopic (ICD-10-PCS; principal; 2018-02-01 08:25)
PROC: 0F798ZZ Dilation of Common Bile Duct, Via Natural or Artificial Opening Endoscopic (ICD-10-PCS; 2018-02-01 08:25)
PROC: 02HV33Z Insertion of Infusion Device into Superior Vena Cava, Percutaneous Approach (ICD-10-PCS; 2018-02-02)
DX: A41.81 Sepsis due to Enterococcus (principal); R65.21 Severe sepsis with septic shock; N17.0 Acute kidney failure with tubular necrosis; G93.41 Metabolic encephalopathy; N39.0 Urinary tract infection, site not specified; B17.9 Acute viral hepatitis, unspecified; D68.9 Coagulation defect, unspecified; E87.1 Hypo-osmolality and hyponatremia; E87.2 Acidosis; I48.1 Persistent atrial fibrillation; I48.92 Unspecified atrial flutter; I69.351 Hemiplegia and hemiparesis following cerebral infarction affecting right dominant side; J44.1 Chronic obstructive pulmonary disease with (acute) exacerbation; K80.66 Calculus of gallbladder and bile duct with acute and chronic cholecystitis without obstruction; L03.115 Cellulitis of right lower limb; Z68.42 Body mass index [BMI] 45.0-49.9, adult; R18.8 Other ascites; T45.515A Adverse effect of anticoagulants, initial encounter; E11.649 Type 2 diabetes mellitus with hypoglycemia without coma; E66.01 Morbid (severe) obesity due to excess calories; E78.5 Hyperlipidemia, unspecified; E87.5 Hyperkalemia; E87.6 Hypokalemia; T39.2X5A Adverse effect of pyrazolone derivatives, initial encounter; G93.89 Other specified disorders of brain; I11.0 Hypertensive heart disease with heart failure; I27.29 Other secondary pulmonary hypertension; I35.0 Nonrheumatic aortic (valve) stenosis; I48.2 Chronic atrial fibrillation; I50.9 Heart failure, unspecified; I69.320 Aphasia following cerebral infarction; K21.9 Gastro-esophageal reflux disease without esophagitis; K72.90 Hepatic failure, unspecified without coma; R47.02 Dysphasia; Z79.01 Long term (current) use of anticoagulants; Z79.4 Long term (current) use of insulin; Z79.51 Long term (current) use of inhaled steroids; Z79.899 Other long term (current) drug therapy; Z80.3 Family history of malignant neoplasm of breast; Z87.01 Personal history of pneumonia (recurrent); Z87.440 Personal history of urinary (tract) infections; Z87.891 Personal history of nicotine dependence; Z79.890 Hormone replacement therapy; Z60.2 Problems related to living alone; M19.90 Unspecified osteoarthritis, unspecified site; R26.9 Unspecified abnormalities of gait and mobility; I69.322 Dysarthria following cerebral infarction
CPT/HCPCS: 36415; 36569; 43262; 43264; 70450; 71045; 71046; 74176; 74330; 76705; 76770; 76937; 77001; 80053; 80061; 80074; 80076; 80306; 81001; 82140; 82550; 82553; 82728; 83036; 83516; 83520; 83540; 83550; 83735; 84100; 84132; 84484; 85025; 85610; 85730; 86038; 87040; 87086; 87205; 93005; 93923; 93970; 94640; 94760; 96361; 96365; 96374; 96375; 96376; 99285

== ENCOUNTER 2018-02-28 10:48 | Inpatient (IN) | payer MEDICAID ==
[2018-02-28] MEDS ORDERED: ATROPINE OPHTH SOLN 1% 5ML BTL SUBLINGUAL PRN (11:29)
[2018-02-28] MEDS ORDERED: LORazepam 2 MG/ML INJ IV PRN (11:29)
[2018-02-28] MEDS ORDERED: ACETAMINOPHEN SUPPOSITORY 650 MG SUPP RECTAL PRN (11:29)
[2018-02-28] MEDS ORDERED: MORPHINE SULFATE 2 MG/ML SYRINGE IV PRN (11:29)
[2018-02-28] MEDS ORDERED: ONDANSETRON 4 MG/2 ML VIAL IVP PRN (11:29)
[2018-02-28] MEDS ORDERED: MORPHINE SULFATE (100 MG/2 ML) 100 MG in SODIUM CHLORIDE 0.9% 100 ML IV SCH (11:30)
--- NOTE | 2018-02-28 15:19 | P.DS ---
Providers Date of admission: 02/28/18 12:12 Expected date of discharge: 02/28/18 Attending physician: Rhona Verdugo Primary care physician: Stated None Hospital Course: Final Diagnoses: - Acute hypoxic respiratory failure, status post vent dependent, secondary to acute exacerbation of chronic diastolic congestive heart failure with right pleural effusion, atelectasis. -Respiratory arrest, hypotensive, no reintubation as per family. - sepsis secondary to the above as well as acute UTI, status post pressor dependent -Acute UTI with Aerococcus urinae. Blood cultures grew staphylococcal hemolyticus , preliminary blood cultures negative -Acute renal failure, cardiorenal, stable Chronic kidney disease,NKF, stage III -Hyperkalemia, volume overload, status post Lasix drip, currently on Lasix IV push -Abdominal pain continued to moderate ascites and moderate subcutaneous edema. There is fluid filled structure in the right upper quadrant possibly the gallbladder but there is air-fluid level. There is also a large right sided pelvic mass could be a large fibroid or ovarian mass and change compared to previous. Further evaluation of this mass depending on family's decision to continue aggressive therapy, once she is more stabilized with a pelvic ultrasound - Diabetes mellitus. -Chronic persistent atrial fibrillation, anticoagulated on warfarin -Hypertension -Hyperlipidemia -COPD -History of recurrent right lower extremity cellulitis with lower extremity peripheral edema and chronic venous stasis. -History of CVA with expressive aphasia and right-sided hemiplegia. -No code -Comfort Care Hospital course: This is a 67-year-old female patient who follows with Dr. Castillo as her primary care physician. She has a history of CVA with right- sided flaccidity and dysphagia, chronic obstructive pulmonary disease from previous smoking history, atrial fibrillation, valvular heart disease, degenerative joint disease, frequent urinary tract infections, head injury. She presented here to the emergency room yesterday with complaints of abdominal discomfort and altered mental status. Chest x-ray revealed cardiomegaly and basilar effusions with associated atelectasis. Abdominal x-ray revealed nonobstructive bowel gas pattern. Computed tomography scan of the abdomen revealed moderate ascites, moderate subcutaneous edema which had progressed compared to previous in 01/27/2018. There is fluid-filled structures in the right upper quadrant that could be the gallbladder but there is air-fluid level. There is a large right side pelvic mass possible large fibroid oral or ovarian mass unchanged compared to previous. Pleural effusions consistent with congestive heart failure have progressed as well. Computed tomography scan of the brain revealed encephalomalacia related to old left hemisphere infarct. Unchanged compared to previous. The patient was originally admitted to the regular medical floor. Last evening she developed hypotension and increasing lethargy and was transferred to the intensive care unit. She is seen there in consultation this morning. She is quite obtunded. Arousing to painful stimuli only. She required BiPAP support currently 03/26 35% FiO2. She is receiving fluids for her hypotension. Will require norepinephrine. Urine culture is pending. White count 11.4. Hemoglobin 12.9. INR 1.7. Arterial blood gases with a pO2 of 76, CO2 90, pH 7.2. She is also hyperkalemic with a potassium of 7 being treated currently at 6.8. Creatinine 1.11. ProBNP 4140. Troponin negative. 02/22/2018 intubated, maintained on FiO2 40%/+5 PEEP. Chest x-ray reporting small bilateral pleural effusions, cardiomegaly. Continues on Levophed, Lasix and Diprovan drips. Maintained on antibiotics daptomycin and Rocephin, blood cultures reporting coagulase-negative staph, urine culture enterococcus urinae. Afebrile, WBC 11.4. Telemetry atrial fibrillation with heart rates in the low 100s. Patient given a sedation holiday, did not follow commands, desatted into the mid 80s. Creatinine 1.19. 02/26/2018 patient had been extubated on the weekend, maintaining O2 sats in the high 90s on 4 L nasal cannula. Chest x-ray reporting improving left basilar atelectasis, small right pleural effusion, cardiomegaly. Past swallow evaluation, diet initiated. Congested, weak nonproductive cough. Levophed weaned off early this morning at 0400. Maintained on Lasix IV push, diuresing well with good urine output, weight loss of 1.6 kg. Continues on antibiotics of Rocephin; daptomycin discontinued as per infectious disease. 02/27/2018 Awaiting [facility] bed. Maintaining O2 sats of mid 90s on 4 L nasal cannula. Continues to have weak nonproductive cough.chest x-ray stable, right basilar opacity, persistent left lung base atelectasis. Diuresing well on Lasix IV push with 24-hour I&O reflecting a negative fluid balance. Maintained on Rocephin Afebrile, repeat blood cultures negative at 72 hours. 02/28/2018 in the hold worker hours, patient declined. Difficulty breathing, increased shortness of breath, hypotensive. A team called. Family contacted, did not want patient repeat intubated. Patient made comfort care. Comfort care initiated. Currently being evaluated for [facility] hospice. - Exam GENERAL: Lying in bed, unresponsive, appears comfortable, on morphine drip HEENT:: Normocephalic, pupils equal, mucosa dry NECK: Supple, No masses, short neck, unable to assess JVD, LUNGS: Diminished with Scattered rhonchi, crackles CVS: S1 and S2 normal with systolic murmur, irregular rhythm. ABDOMEN: Soft, nontender, positive ascites, no masses palpable, positive bowel sounds SKIN: No rashes. Peripheral edema. Chronic venous stasis. Mottling of extremities The impression and plan of care has been dictated as directed. : I performed a history and examination of this patient, discussed the same with the dictator. I agree with the dictator's note ,documented as a scribe. Any additional findings or plans will be noted. Time taken: 35 minutes Patient Condition at Discharge: Poor Plan - Discharge Summary New Discharge Prescriptions: No Action Formoterol Fumarate [Perforomist] 20 mcg INHALATION RT-BID #60 nebu Ipratropium-Albuterol Nebulize [Duoneb 0.5 mg-3 mg/3 ml Soln] 3 ml INHALATION RT-QID #120 ampul.neb Budesonide [Pulmicort] 1 mg INHALATION RT-BID #60 nebu Ipratropium-Albuterol Nebulize [Duoneb 0.5 mg-3 mg/3 ml Soln] 3 ml INHALATION RT-Q4H PRN PRN Reason: Shortness Of Breath Discharge Medication List Budesonide [Pulmicort] 1 mg INHALATION RT-BID #60 nebu 01/03/18 [Rx] Formoterol Fumarate [Perforomist] 20 mcg INHALATION RT-BID #60 nebu 01/03/18 [Rx ] Ipratropium-Albuterol Nebulize [Duoneb 0.5 mg-3 mg/3 ml Soln] 3 ml INHALATION RT -QID #120 ampul.neb 01/03/18 [Rx] Ipratropium-Albuterol Nebulize [Duoneb 0.5 mg-3 mg/3 ml Soln] 3 ml INHALATION RT -Q4H PRN 02/20/18 [History]
[2018-03-01 01:57] VITALS: RESP 10
--- NOTE | 2018-03-01 11:52 | P.HPIM ---
History of Present Illness 67-year-old a known patient to me had multiple hospitalizations for the consult failure chronic diastolic dysfunction. Patient was admitted during her previous hospitalization for the same reason was intubated improved patient was sent out of ICU. Her overall prognosis is extremely poor has plus multiple recent hospitalizations in thing was discussed with the family and the decision regarding hospice was made and patient is presently hospice. Patient is lying comfortably in the bed arousable on morphine drip. Patient is general inpatient hospice at this time. Review of Systems irrelevant at this time Past Medical History Past Medical History: Atrial Fibrillation, Chest Pain / Angina, Heart Failure, COPD, CVA/TIA, GERD/Reflux, Hyperlipidemia, Hypertension, Osteoarthritis (OA), Pneumonia, Renal Disease Additional Past Medical History / Comment(s): 2001 CVA with R sided weakness arm /leg/contracted R hand and dysphasia, Afib with RVR, cardiac valve disease, DJD , occasional back pain, bronchitis, UTIs, kidney infections, anemia, head injury. 2018 CVA with right side flaccid and aphasia, recent hospitalization for COPD exacerbation in addition to a right lower extremity cellulitis. Recent treatment for enterococcus patient septicemia.currently has idc History of Any Multi-Drug Resistant Organisms: None Reported Past Surgical History: Section, Hernia Repair, Orthopedic Surgery, Tonsillectomy Additional Past Surgical History / Comment(s): Incarcerated umbilical hernia repair/omentum resection, X2, L tibial IM nailing, teeth extractions. Past Anesthesia/Blood Transfusion Reactions: No Reported Reaction Smoking Status: Former smoker Additional Past Alcohol Use History / Comment(s): Patient previously lived in a senior apartment and now at [facility]. She is a reformed smoker. No experience. No animals in the home - Past Family History Father Family Medical History: No Reported History Additional Family Medical History / Comment(s): FATHER WAS HEALTHY AND LIVED TO BE 96YRS OLD. Mother Family Medical History: Cancer Additional Family Medical History / Comment(s): MOTHER HAD BREAST CANCER. Medications and Allergies Home Medications Medication Instructions Recorded Confirmed Type Budesonide [Pulmicort] 1 mg INHALATION RT-BID #60 nebu 01/03/18 02/28/18 Rx Formoterol Fumarate [Perforomist] 20 mcg INHALATION RT-BID #60 nebu 09/13/18 11/ 08/18 Rx Ipratropium-Albuterol Nebulize 3 ml INHALATION RT-QID #120 01/03/18 02/28/18 Rx [Duoneb 0.5 mg-3 mg/3 ml Soln] ampul.neb Ipratropium-Albuterol Nebulize 3 ml INHALATION RT-Q4H PRN 02/20/18 02/28/18 History [Duoneb 0.5 mg-3 mg/3 ml Soln] Allergies Allergy/AdvReac Type Severity Reaction Status Date / Time No Known Allergies Allergy Verified 02/20/18 14:50 Physical Exam Vitals: Vital Signs Resp 03/01/18 08:05 10 L 03/01/18 00:00 10 L Intake and Output 02/28/18 03/01/18 03/01/18 22:59 06:59 14:59 Intake Total 20 Balance 20 Intake: Intake, IV Titration 20 Amount Morphine Sulfate (100 mg/ 20 2 ml) 100 mg In Sodium Chloride 0.9% 100 ml @ 1 MG/HR 1.02 mls/hr IV . Q24H [facility] Rx#:[id number] Other: Voiding Method Indwelling Catheter Indwelling Catheter PHYSICAL EXAMINATION: GENERAL: lying comfortably in the bed CARDIOVASCULAR: S1 and S2 present. No murmurs, rubs, or gallops. ABDOMEN: Soft NEUROLOGICAL: Arousable with verbal stimuli SKIN: No rashes. Assessment and Plan Plan: Congestive heart failure chronic diastolic dysfunction -Chronic kidney disease and acute renal failure -Diabetes mellitus -Persistent A. fib -Hypertension -Hyperlipidemia -COPD Patient is presently general inpatient hospice. Continue with morphine drip, atropine and Ativan. Patient is comfortable at this time.
[2018-03-03] MEDS ORDERED: SCOPOLAMINE 1.5MG/72HR PATCH TRANSDERM SCH (02:00)
--- NOTE | 2018-03-03 16:10 | P.DS ---
Providers Date of admission: 02/28/18 12:12 Expected date of discharge: 03/01/18 Attending physician: Rhona Verdugo Primary care physician: Stated None Hospital Course: Patient was hospice and subsequently please refer to nursing documentation for exact time of . Patient on 03/01/2018 Patient Condition at Discharge: Poor Plan - Discharge Summary New Discharge Prescriptions: No Action Formoterol Fumarate [Perforomist] 20 mcg INHALATION RT-BID #60 nebu Ipratropium-Albuterol Nebulize [Duoneb 0.5 mg-3 mg/3 ml Soln] 3 ml INHALATION RT-QID #120 ampul.neb Budesonide [Pulmicort] 1 mg INHALATION RT-BID #60 nebu Ipratropium-Albuterol Nebulize [Duoneb 0.5 mg-3 mg/3 ml Soln] 3 ml INHALATION RT-Q4H PRN PRN Reason: Shortness Of Breath Discharge Medication List Budesonide [Pulmicort] 1 mg INHALATION RT-BID #60 nebu 01/03/18 [Rx] Formoterol Fumarate [Perforomist] 20 mcg INHALATION RT-BID #60 nebu 01/03/18 [Rx ] Ipratropium-Albuterol Nebulize [Duoneb 0.5 mg-3 mg/3 ml Soln] 3 ml INHALATION RT -QID #120 ampul.neb 01/03/18 [Rx] Ipratropium-Albuterol Nebulize [Duoneb 0.5 mg-3 mg/3 ml Soln] 3 ml INHALATION RT -Q4H PRN 02/20/18 [History] Discharge Disposition: - Preliminary Cause of Preliminary Cause of : Congestive heart failure
== END 2018-03-01 13:35 | disposition expired | DRG 951 ==
LOC: 4SSUR 12:12
PROVIDERS: ADMIT Internal Medicine; ATTEND Internal Medicine
DX: Z51.5 Encounter for palliative care (principal); A41.9 Sepsis, unspecified organism; I50.33 Acute on chronic diastolic (congestive) heart failure; J96.01 Acute respiratory failure with hypoxia; I13.0 Hypertensive heart and chronic kidney disease with heart failure and stage 1 through stage 4 chronic kidney disease, or unspecified chronic kidney disease; I48.1 Persistent atrial fibrillation; J98.11 Atelectasis; N17.9 Acute kidney failure, unspecified; N39.0 Urinary tract infection, site not specified; R18.8 Other ascites; I69.951 Hemiplegia and hemiparesis following unspecified cerebrovascular disease affecting right dominant side; E11.22 Type 2 diabetes mellitus with diabetic chronic kidney disease; E78.5 Hyperlipidemia, unspecified; E87.5 Hyperkalemia; J44.9 Chronic obstructive pulmonary disease, unspecified; K21.9 Gastro-esophageal reflux disease without esophagitis; N18.3 Chronic kidney disease, stage 3 (moderate); M19.90 Unspecified osteoarthritis, unspecified site; R19.00 Intra-abdominal and pelvic swelling, mass and lump, unspecified site; I87.8 Other specified disorders of veins; B96.89 Other specified bacterial agents as the cause of diseases classified elsewhere; I69.920 Aphasia following unspecified cerebrovascular disease; Z87.891 Personal history of nicotine dependence; Z87.440 Personal history of urinary (tract) infections; Z87.01 Personal history of pneumonia (recurrent); Z80.3 Family history of malignant neoplasm of breast